=== PATIENT | male | born 1950 | race Caucasian/White ===

== ENCOUNTER 2020-05-18 09:38 | Outpatient (REF) | payer MEDICARE, SELFPAY ==
--- NOTE | ~2020-05-18 | XR_ITS ---
EXAMINATION: XR CHEST CLINICAL INFORMATION: Pleurodynia. COMPARISON: 09/20/2018 TECHNIQUE: Two views of the chest were obtained. FINDINGS: Markedly rotated angulated positioning. The cardiomediastinal size is stable allowing for difference in technique. Large hiatal hernia. There is right basilar opacity, which may be related to elevation of the right hemidiaphragm/technique. Alternately, this could represent right basilar opacification plus/minus right pleural effusion. Left lung is clear. No left-sided pleural effusion. No pulmonary edema or pneumothorax. XR/XR chest 2V IMPRESSION: Rotated angulated positioning limiting evaluation. Findings in the right lower lung, could be related to elevated hemidiaphragm secondary to positioning/technique. Alternately, this could represent bibasilar consolidation plus/minus effusion. Recommend repeat radiograph with better technique for further evaluation. Large hiatal hernia.
--- NOTE | ~2020-05-18 | XR_ITS ---
EXAMINATION: XR HIP, RIGHT CLINICAL INFORMATION: Hip pain. COMPARISON: 06/21/2011 TECHNIQUE: Two views of the right hip. FINDINGS: No acute fracture or dislocation. Alignment is normal. Joint spaces are maintained. Small ossicle adjacent to the superior acetabulum. Pelvic bones are intact. XR/XR hip RT min 2V IMPRESSION: No evidence of acute fracture.
== END 2020-05-18 09:39 | disposition home or self-care (01) ==
LOC: HO.XRAY 09:38
PROVIDERS: PCP Internal Medicine; Visit Provider Internal Medicine
DX: R07.81 Pleurodynia (principal)
CPT/HCPCS: 71046; 73502

== ENCOUNTER 2020-05-18 10:19 | Emergency (ER) | payer MEDICARE, MEDICAID, SELFPAY ==
[2020-05-18 10:37] LABS: Glucose, Whole Blood 127 mg/dL (60-115)
--- NOTE | 2020-05-18 10:47 | ED_ITS ---
HPI - General Adult General Chief complaint: General Medical Stated complaint: unsteady gait Time Seen by Provider: 05/18/20 10:45 Source: patient Mode of arrival: wheelchair Limitations: no limitations History of Present Illness HPI narrative: 62-year-old male who was brought to the emergency department from the radiology department for evaluation of lightheadedness, dizziness and diaphoresis. The patient states that 3 days prior he fell at home. He states that he got out of bed and walked into the kitchen and then fell. He does not believe that he lost consciousness. He denied any head injury. He states that he did hit his right chest and right hip on the floor. He complained of right- sided chest pain and hip pain and was sent to the Radiology Department by his PCP for x-rays. Apparently he became, confused, diaphoretic and complained of dizziness so sent to the emergency department for evaluation. The patient currently has no complaints. He states that he has been taking ibuprofen for his pain. He denied any abdominal pain or change in his bowel movements (dark tarry stools, bright red blood per her rectum or diarrhea). Related Data Allergies Allergy/AdvReac Type Severity Reaction Status Date / Time Penicillins [PENICILLINS] Allergy Unknown EYES GET Unverified 12/08/19 14:36 RED Review of Systems Review of Systems: Yes all other systems are reviewed and are negative Neurologic: Reports Abnormal speech present [facility] Past Medical History [facility] Narrative: Patient has a history of high cholesterol, myocardial infarction 20 years prior, asthma and anxiety. He lives alone, he denies tobacco use but was a former smoker, quit 25 years prior and smoked for 20 years, denies alcohol and drug use. Social History Social History Alcohol intake: unknown Smoking Status: Unknown if ever smoked Advance Directives: No Advance Directives Information Provided: No Physical Exam Vital Signs: Vital Signs: Last Vital Signs Pulse 65 05/18/20 12:00 Resp 18 05/18/20 12:00 Pulse Ox 93 05/18/20 12:00 Const: General: cooperative and other (Diaphoretic, stuttering speech per comprehensible) Nutritional Appearance: other (Resting tremor) Orientation/consciousness: oriented to person and oriented to place Limitations: no limitations HENMT: Head: Yes normal to inspection, Yes normocephalic and Yes atraumatic Ears: external ears normal General nose exam: Normal external nose present Face and sinus: Yes normal facial exam Mouth: Normal oral and palatal mucosa present Throat: Yes posterior oropharynx normal Eyes: Periorbital: periorbital findings normal Eyelids: Yes eyelids normal Conjunctivae: conjunctivae normal Sclerae: sclerae normal Corneas: corneas normal Pupils: Equal, round and reactive pupils present Direct Ophthalmoscopy: normal light reflex Neck: Neck: Yes full ROM, Yes no lymphadenopathy, Yes no meningeal signs, Yes trachea midline and Yes supple Chest: Chest palpation & inspection: normal inspection of the chest and normal palpation of entire chest wall Resp: Effort & Inspection: normal respiratory effort and able to speak in complete sentences Auscultation: clear to auscultation bilaterally Cardio: Rate: regular rate Rhythm: regular rhythm Heart sounds: S1 normal heart sound present, S2 normal heart sound present and no murmurs GI: Inspection: Yes normal to inspection Palpation (GI): Soft to palpation, nontender, no guarding, not rigid and No hepatosplenomegaly present Rectal Exam - Male: Yes Visual inspection abnormal (Incontinent of stool) and Yes heme positive stool : General: Yes no CVA tenderness Back/Spine/Pelvis: Back: no CVA tenderness Cervical Spine: normal cervical lordosis Thoracic/Lumbar Spine: thoracic and lumbar spine normal to inspection Skin: Lesions: no lesions Rashes: no rashes Wounds: no wounds Neuro: General: oriented to person, oriented to place, no meningeal signs and other (Diffuse resting tremor) Cranial nerves: Yes CN's II-XII intact bilaterally and Yes Equal, round and reactive pupils present Cognition (Neuro): normal cognition Speech: Abnormal speech present Motor exam (neuro): 5/5 motor strength present throughout Extrem: General: Yes normal to inspection and Yes full ROM Psych: Appearance: well kempt Mental Status: mental status grossly normal Speech and movement: Normal speech and movement present Affect: normal affect Attitude: cooperative Thought process: Normal thought process present Thought content: Normal thought content present Course Course Course Narrative: 70-year-old male who was sent to the emergency department for evaluation of confusion, diaphoresis shakiness and weakness. The patient had a fall 3 days prior with injury to his right chest and right hip and was at the Radiology Department to get x-rays. I did review these x-rays and I do not see any acute fractures. The patient's physical examination revealed a diaphoretic male who was cooperative and able to give a good history, his abdomen was nontender but is rectal exam revealed dark stool which was Hemoccult positive. The patient has been taking Motrin for his chest and right hip pain and he may have an upper GI bleed. I did order laboratory evaluation on the patient. The patient did not have any head trauma from his fall, therefore I do not think that the CT scan of the brain at this time. 1335: The patient is currently asymptomatic and states that he feels like he is at his baseline. Patient's laboratory evaluation revealed no anemia with an H&H of 16 in 49. Urinalysis was negative, COVID-19 was negative. I did look at the patient's outpatient chest x-ray and I do not see any acute fracture or pneumothorax. Patient's outpatient right hip x-ray revealed no acute fracture on my review of these films. I did discuss these with the patient I suspect that he has a contusion to his right chest wall secondary to his fall and most l ikely a contusion to his right hip. He did have Hemoccult-positive stool and I did discuss this with him. I told him to avoid ibuprofen and take Tylenol for pain. He is also advised to use ice for 10-15 minutes followed by heat for 10- 15 minutes. Patient will need to follow-up with his PCP to further evaluate his Hemoccult-positive stool. Medical Decision Making Lab Data Result diagrams: 05/18/20 10:50 05/18/20 10:50 Labs: Lab Results 05/18/20 05/18/20 05/18/20 Range/Units 10:34 10:50 10:50 WBC 9.3 (4.8-10.8) X10*3/uL RBC 5.54 (4.60-5.80) X10*6/uL Hgb 16.0 (14.0-18.0) g/dl Hct 49.3 (42-52) % MCV 89.0 (80-98) fL MCH 28.9 (27.0-33.0) pg MCHC 32.5 (31.0-36.0) g/dl RDW 13.3 (11.0-16.0) % Plt Count 181 (160-400) X10*3/uL MPV 9.3 L (9.4-12.4) fL Immature Gran % (Auto) 0.3 (0.0-0.4) % Neut % (Auto) 79.7 H (45-73) % Lymph % (Auto) 8.0 L (20-40) % [facility] % (Auto) 10.5 (2-11) % Eos % (Auto) 1.2 (0-4) % Baso % (Auto) 0.3 (0-2) % Lymph # (Auto) 0.7 L (1.2-4.9) X10*3/uL [facility] # (Auto) 1.0 (0.1-1.2) X10*3/uL Eos # (Auto) 0.1 (0.0-0.4) X10*3/uL Baso # (Auto) 0.0 (0.0-0.2) X10*3/uL Abs Immat Gran (auto) 0.03 (0.00-0.03) X10*3/uL Absolute Neuts (auto) 7.4 (2.0-8.3) X10*3/uL Absolute Nucleated RBC 0.000 (0.0-0.012) X10*3/uL Nucleated RBC % (auto) 0.0 (0.0-0.2) /100WBC Sodium 140 (135-145) mmol/L Potassium 4.5 (3.3-5.1) mmol/L Chloride 104 (96-108) mmol/L Carbon Dioxide 26 (22-29) mmol/L Anion Gap 15 (12-20) BUN 13 (9-16) mg/dL Creatinine 0.80 (0.5-1.4) mg/dL Estim Creat Clear Calc TNP Estimated GFR > 60 POC Glucose 127 H (60-115) mg/dL Random Glucose 119 H (60-115) mg/dL Calcium 8.7 (8.4-10.2) mg/dL Total Bilirubin 0.6 (0.0-1.0) mg/dL AST 19 (5-37) U/L ALT 18 (0-40) U/L Alkaline Phosphatase 104 (39-117) U/L Troponin I High Sens (<3.5-35.0) ng/L Total Protein 6.9 (6.5-8.0) g/dL Albumin 4.4 (3.5-5.0) g/dL Lipase 47 (8-78) U/L Urine Color Urine Appearance Urine pH (5.0-8.0) Ur Specific [place] (1.005-1.025) Urine Protein (NEG-TRACE) MG/DL Urine Glucose (UA) (NEG) MG/DL Urine Ketones (NEG) MG/DL Urine Blood (NEG) Urine Nitrite (NEG) Ur Leukocyte Esterase (NEG) Urine RBC (0) /HPF Urine WBC (0-4) /HPF Ur Squamous Epith Cells /LPF Urine Bacteria /LPF Stool Occult Blood (NEG) COVID-19 (TIFFANY) (Negative) COVID-19 Clin Com 05/18/20 05/18/20 05/18/20 Range/Units 10:50 10:50 10:51 WBC (4.8-10.8) X10*3/uL RBC (4.60-5.80) X10*6/uL Hgb (14.0-18.0) g/dl Hct (42-52) % MCV (80-98) fL MCH (27.0-33.0) pg MCHC (31.0-36.0) g/dl RDW (11.0-16.0) % Plt Count (160-400) X10*3/uL MPV (9.4-12.4) fL Immature Gran % (Auto) (0.0-0.4) % Neut % (Auto) (45-73) % Lymph % (Auto) (20-40) % [facility] % (Auto) (2-11) % Eos % (Auto) (0-4) % Baso % (Auto) (0-2) % Lymph # (Auto) (1.2-4.9) X10*3/uL [facility] # (Auto) (0.1-1.2) X10*3/uL Eos # (Auto) (0.0-0.4) X10*3/uL Baso # (Auto) (0.0-0.2) X10*3/uL Abs Immat Gran (auto) (0.00-0.03) X10*3/uL Absolute Neuts (auto) (2.0-8.3) X10*3/uL Absolute Nucleated RBC (0.0-0.012) X10*3/uL Nucleated RBC % (auto) (0.0-0.2) /100WBC Sodium (135-145) mmol/L Potassium (3.3-5.1) mmol/L Chloride (96-108) mmol/L Carbon Dioxide (22-29) mmol/L Anion Gap (12-20) BUN (9-16) mg/dL Creatinine (0.5-1.4) mg/dL Estim Creat Clear Calc Estimated GFR POC Glucose (60-115) mg/dL Random Glucose (60-115) mg/dL Calcium (8.4-10.2) mg/dL Total Bilirubin (0.0-1.0) mg/dL AST (5-37) U/L ALT (0-40) U/L Alkaline Phosphatase (39-117) U/L Troponin I High Sens < 3.5 (<3.5-35.0) ng/L Total Protein (6.5-8.0) g/dL Albumin (3.5-5.0) g/dL Lipase (8-78) U/L Urine Color Urine Appearance Urine pH (5.0-8.0) Ur Specific [place] (1.005-1.025) Urine Protein (NEG-TRACE) MG/DL Urine Glucose (UA) (NEG) MG/DL Urine Ketones (NEG) MG/DL Urine Blood (NEG) Urine Nitrite (NEG) Ur Leukocyte Esterase (NEG) Urine RBC (0) /HPF Urine WBC (0-4) /HPF Ur Squamous Epith Cells /LPF Urine Bacteria /LPF Stool Occult Blood POS (NEG) COVID-19 (TIFFANY) Negative (Negative) COVID-19 Clin Com See Note 05/18/20 Range/Units 12:20 WBC (4.8-10.8) X10*3/uL RBC (4.60-5.80) X10*6/uL Hgb (14.0-18.0) g/dl Hct (42-52) % MCV (80-98) fL MCH (27.0-33.0) pg MCHC (31.0-36.0) g/dl RDW (11.0-16.0) % Plt Count (160-400) X10*3/uL MPV (9.4-12.4) fL Immature Gran % (Auto) (0.0-0.4) % Neut % (Auto) (45-73) % Lymph % (Auto) (20-40) % [facility] % (Auto) (2-11) % Eos % (Auto) (0-4) % Baso % (Auto) (0-2) % Lymph # (Auto) (1.2-4.9) X10*3/uL [facility] # (Auto) (0.1-1.2) X10*3/uL Eos # (Auto) (0.0-0.4) X10*3/uL Baso # (Auto) (0.0-0.2) X10*3/uL Abs Immat Gran (auto) (0.00-0.03) X10*3/uL Absolute Neuts (auto) (2.0-8.3) X10*3/uL Absolute Nucleated RBC (0.0-0.012) X10*3/uL Nucleated RBC % (auto) (0.0-0.2) /100WBC Sodium (135-145) mmol/L Potassium (3.3-5.1) mmol/L Chloride (96-108) mmol/L Carbon Dioxide (22-29) mmol/L Anion Gap (12-20) BUN (9-16) mg/dL Creatinine (0.5-1.4) mg/dL Estim Creat Clear Calc Estimated GFR POC Glucose (60-115) mg/dL Random Glucose (60-115) mg/dL Calcium (8.4-10.2) mg/dL Total Bilirubin (0.0-1.0) mg/dL AST (5-37) U/L ALT (0-40) U/L Alkaline Phosphatase (39-117) U/L Troponin I High Sens (<3.5-35.0) ng/L Total Protein (6.5-8.0) g/dL Albumin (3.5-5.0) g/dL Lipase (8-78) U/L Urine Color YELLOW Urine Appearance CLEAR Urine pH 6.0 (5.0-8.0) Ur Specific [place] 1.010 (1.005-1.025) Urine Protein NEG (NEG-TRACE) MG/DL Urine Glucose (UA) NEG (NEG) MG/DL Urine Ketones NEG (NEG) MG/DL Urine Blood TRACE (NEG) Urine Nitrite NEG (NEG) Ur Leukocyte Esterase NEG (NEG) Urine RBC 0-2 (0) /HPF Urine WBC 0-2 (0-4) /HPF Ur Squamous Epith Cells TRACE /LPF Urine Bacteria NONE /LPF Stool Occult Blood (NEG) COVID-19 (TIFFANY) (Negative) COVID-19 Clin Com ECG Data Attestation: I personally reviewed and interpreted this ECG as follows: Interpretation: 1026: Sinus tachycardia with a rate of 104, first-degree AV block with a NC interval 210 milliseconds, normal QRS and QTC, Q-wave noted in V1, no ST segment elevation or depression, the EKG has a wandering baseline secondary to the patient's tremors, no evidence for cardiac ischemia or myocardial injury. No old EKG for comparison Discharge Plan Discharge Clinical Impression: Lower GI bleed Chest wall contusion Qualifiers: Encounter type: initial encounter Laterality: right Qualified Code(s): S20.211A - Contusion of right front wall of thorax, initial encounter Contusion of hip, right Qualifiers: Encounter type: initial encounter Qualified Code(s): S70.01XA - Contusion of right hip, initial encounter Fall Qualifiers: Encounter type: initial encounter Qualified Code(s): W19.XXXA - Unspecified fall, initial encounter Patient Disposition: Home, Self-Care Instructions: Gastrointestinal Bleeding (ED), Rib Contusion (ED) Additional Instructions: Your blood work was unremarkable, you are not anemic which is reassuring. On your rectal exam you have blood in your stool that you cannot see (occult blood) and you tested positive on the Hemoccult test. There are many causes for blood in the stool including internal hemorrhoids, polyps, and cancer. It is very important that you follow-up with your doctor to further evaluate this finding. Your chest x-ray revealed no obvious rib fracture and I suspect that you have a contusion to your chest. Your right hip x-ray revealed no obvious fracture and you most likely have a contusion to your hip. Take Tylenol (acetaminophen) 500 mg pills, 2 pills every 4 to 6 hours as needed for pain. Do not take NSAID (Motrin, Advil, ibuprofen, naproxen, Aleve) since this can cause increased GI bleeding. Follow-up with your doctor in 2 days. Please return to the emergency department if your symptoms get worse or if you develop any symptoms that are concerning to you.
[2020-05-18 10:57] LABS: MANUAL DIFF FLAG NO
[2020-05-18 10:59] LABS: Basophils Percent Auto 0.3 % (0-2); Eosinophils Absolute Auto 0.1 X10*3/uL (0.0-0.4); Eosinophils Percent Auto 1.2 % (0-4); Hematocrit 49.3 % (42-52); Imm Gran Abs Auto 0.03 X10*3/uL (0.00-0.03); Imm Gran Pct Auto 0.3 % (0.0-0.4); Lymphocytes Absolute Auto 0.7 X10*3/uL (1.2-4.9); Mean Corpuscular HGB Conc 32.5 g/dl (31.0-36.0); Mean Corpuscular Hemoglobin 28.9 pg (27.0-33.0); Mean Platelet Volume 9.3 fL (9.4-12.4); Monocytes Percent Auto 10.5 % (2-11); Neutrophils Absolute Auto 7.4 X10*3/uL (2.0-8.3); Neutrophils Percent Auto 79.7 % (45-73); Platelet Count 181 X10*3/uL (160-400); Red Blood Count 5.54 X10*6/uL (4.60-5.80); Red Cell Distribution Width 13.3 % (11.0-16.0); White Blood Count 9.3 X10*3/uL (4.8-10.8)
[2020-05-18 11:00] LABS: OBS Int Ctl Valid YES; OBS1 POS (NEG)
[2020-05-18 11:26] LABS: COVID-19 Test Negative (Negative); IDNOW Serial# 9DD0AD1C
[2020-05-18 11:30] LABS: Alanine Aminotransferase 18 U/L (0-40); Albumin Level 4.4 g/dL (3.5-5.0); Alkaline Phosphatase 104 U/L (39-117); Anion Gap 15 (12-20); Aspartate Amino Transferase 19 U/L (5-37); Bilirubin Total 0.6 mg/dL (0.0-1.0); Blood Urea Nitrogen 13 mg/dL (9-16); Calcium 8.7 mg/dL (8.4-10.2); Carbon Dioxide 26 mmol/L (22-29); Chloride 104 mmol/L (96-108); Estimated Glomerular Filt Rate > 60; Glucose Random 119 mg/dL (60-115); Lipase 47 U/L (8-78); Potassium 4.5 mmol/L (3.3-5.1); Sodium 140 mmol/L (135-145); Total Protein 6.9 g/dL (6.5-8.0)
[2020-05-18 11:36] LABS: Troponin-I High Sensitivity < 3.5 ng/L (<3.5-35.0)
[2020-05-18] MEDS: 0.9 % Sodium Chloride 1,000 ML 999 ML IV (11:49)
[2020-05-18 12:00] VITALS: PULSE 65; RESP 18; O2SAT 93
[2020-05-18 12:39] LABS: Glucose Urine UA NEG (NEG); Leukocyte Esterase Urine NEG (NEG); Nitrite Urine NEG (NEG); Urine Blood TRACE (NEG); Urine Ketones NEG (NEG); Urine Protein NEG (NEG-TRACE)
[2020-05-18 12:42] LABS: Appearance Urine CLEAR; Color Urine YELLOW
[2020-05-18 12:55] LABS: RBC Urine 0-2 /HPF (0); Squamous Epithelial Cell Urine TRACE /LPF; WBC Urine 0-2 /HPF (0-4)
--- NOTE | 2020-05-19 | ECG_ITS ---
Test Reason : SOB Blood Pressure : / mmHG Vent. Rate : 104 BPM Atrial Rate : 107 BPM P-R Int : 000 ms QRS Dur : 090 ms QT Int : 328 ms P-R-T Axes : 000 065 039 degrees QTc Int : 431 ms Artifact in tracing Normal sinus rhythm Normal EKG When compared with ECG of 20-SEP-2018 16:24, No significant changes seen Referred By: Hamlet Soto Electronically Signed By:CROW HUGHES
== END 2020-05-18 14:18 | disposition home or self-care (01) ==
PROVIDERS: Emergency Provider Emergency Medicine Emergency Medical Services; PCP Internal Medicine
DX: K92.2 Gastrointestinal hemorrhage, unspecified (principal); S70.01XA Contusion of right hip, initial encounter; S20.211A Contusion of right front wall of thorax, initial encounter; W01.0XXA Fall on same level from slipping, tripping and stumbling without subsequent striking against object, initial encounter; R42 Dizziness and giddiness; Z20.822 Contact with and (suspected) exposure to COVID-19; Y93.9 Activity, unspecified; Y92.010 Kitchen of single-family (private) house as the place of occurrence of the external cause; Y99.9 Unspecified external cause status
CPT/HCPCS: 36415; 71046; 73502; 80053; 81001; 82272; 82947; 83690; 84484; 85025; 87635; 93005; 96360; 99284

== ENCOUNTER → 2020-08-08 08:13 | Outpatient (REF) | payer MEDICARE, MEDICAID, SELFPAY ==
--- NOTE | ~2020-08-08 | NM_ITS ---
Lexiscan Myocardial perfusion study Indication: Abnormal echocardiogram, assess for coronary disease and ischemia Technique: The patient was brought in for a Lexiscan perfusion study on 08/08/2020 and was injected 0.4 mg of Lexiscan intravenously. Within a minute of this injection 30 mCi of sestamibi was given intravenously. Images were obtained using the SPECT gamma camera interlaced with the gating device. Images were obtained in supine position. Resting perfusion study was performed on 08/09/2020. Patient was administered 30 mCi of sestamibi intravenously at rest. Images were then obtained in supine position. Total DLP 95mGy-cm. Images were processed with the software and compared side to side in short axis, horizontal long axis and vertical long axis views. Findings: Raw acquisition was reviewed. Hepatic uptake noted near the inferior wall. The stress perfusion study showed no significant perfusion abnormality. Both uncorrected as well as CT attenuation corrected images were reviewed. The gated study shows normal LV systolic function with calculated LVEF of 69%. LV cavity is normal in size. The gated study shows normal wall thickening and contraction of segments. Resting study shows no significant perfusion abnormality. Gating at rest reveals normal wall motion with ejection fraction at 57%. The findings are consistent with no reversible or fixed perfusion abnormality. NM/NM filomena perf SPECT rest & str Impression: 1. Myocardial perfusion imaging study shows normal myocardial perfusion. No evidence of any ischemia or infarction. 2. Gated LVEF is 69% during stress and 57% during rest. 3. Transient ischemic dilatation not present. EKG component of the test reported separately.
--- NOTE | 2020-08-08 08:19 | CA_ITS ---
Acquisition Time: 2020-08-08 08:37:30 Total Exercise Time: 00:02:00 Test Indications: CAD Medications: Protocol: LEXISCAN Max HR: 117 BPM 76% of Pred: 152 BPM Max BP: 118/080 mmHG Max Work Load: 1.0 METS Pharmacological stress test using Lexiscan while sitting. Pt tolerated well, mild SOB after Lexiscan injection, no CP. EKG with occ. PVC's, non-diagnostic for ischemia. Nuclear images to follow. Normotensive reasponse to test. Test reviewed with Dr. Cain. Referred By: Rusty Lowe Overread By: Lizabeth Allen NP
== END ==
LOC: HO.CARD 08:13
PROVIDERS: Visit Provider Internal Medicine Cardiovascular Disease
DX: I25.10 Atherosclerotic heart disease of native coronary artery without angina pectoris (principal)
CPT/HCPCS: 78452; 93016; 93017; 93018; A9500; J0280; J2785

== ENCOUNTER 2020-10-11 13:18 | Outpatient (REF) | payer MEDICARE, MEDICAID, SELFPAY ==
[2020-10-11 15:51] LABS: MANUAL DIFF FLAG NO
[2020-10-11 15:59] LABS: Basophils Absolute Auto 0.1 X10*3/uL (0.0-0.2); Basophils Percent Auto 0.8 % (0-2); Eosinophils Absolute Auto 0.2 X10*3/uL (0.0-0.4); Hematocrit 47.6 % (42-52); Hemoglobin 15.4 g/dl (14.0-18.0); Imm Gran Abs Auto 0.04 X10*3/uL (0.00-0.03); Imm Gran Pct Auto 0.5 % (0.0-0.4); Lymphocytes Absolute Auto 1.1 X10*3/uL (1.2-4.9); Lymphocytes Percent Auto 14.5 % (20-40); Mean Corpuscular HGB Conc 32.4 g/dl (31.0-36.0); Mean Corpuscular Hemoglobin 28.7 pg (27.0-33.0); Mean Corpuscular Volume 88.6 fL (80-98); Mean Platelet Volume 9.4 fL (9.4-12.4); Monocytes Absolute Auto 0.9 X10*3/uL (0.1-1.2); Monocytes Percent Auto 10.9 % (2-11); Neutrophils Absolute Auto 5.6 X10*3/uL (2.0-8.3); Neutrophils Percent Auto 71.3 % (45-73); Platelet Count 204 X10*3/uL (160-400); Red Blood Count 5.37 X10*6/uL (4.60-5.80); Red Cell Distribution Width 13.2 % (11.0-16.0); White Blood Count 7.8 X10*3/uL (4.8-10.8)
[2020-10-11 16:13] LABS: C Reactive Protein 0.27 mg/dL (< or = 0.50); Iron 60 mcg/dL (45-160); Percent Iron Saturation 17 % (15-50); Total Iron Binding Capacity 347 mcg/dL (228-428); Unsaturated Iron Binding 287 ug/dL
[2020-10-11 16:40] LABS: Erythrocyte Sedimentation Rate 5 MM/HR (0-15)
[2020-10-12 08:20] LABS: ~Hepatitis C Antibody Nonreactive (Nonreactive)
== END 2020-10-11 13:19 | disposition home or self-care (01) ==
LOC: HO.LAB 13:18
PROVIDERS: PCP Internal Medicine; Referring Provider Internal Medicine; Visit Provider Physician Assistant
DX: R19.5 Other fecal abnormalities (principal); B19.20 Unspecified viral hepatitis C without hepatic coma; R19.7 Diarrhea, unspecified; K21.9 Gastro-esophageal reflux disease without esophagitis
CPT/HCPCS: 36415; 83540; 85025; 85652; 86140; 86803; 99202

== ENCOUNTER → 2020-11-15 13:29 | Outpatient (BNVA) | payer MEDICARE, MEDICAID, SELFPAY | PROVIDERS: PCP Internal Medicine; Visit Provider Physician Assistant | CPT/HCPCS: Q3014 ==

== ENCOUNTER 2020-11-22 13:44 | Outpatient (REF) | payer MEDICARE, MEDICAID, SELFPAY ==
--- NOTE | ~2020-11-22 | XR_ITS ---
EXAMINATION: XR CHEST CLINICAL INFORMATION: Hypoxemia. Repeated falls. COMPARISON: 05/18/2020 TECHNIQUE: 2 views of the chest were obtained. FINDINGS: There is no evidence of acute parenchymal disease, pneumothorax, or pleural effusion. Heart normal size. No evidence of pulmonary edema. There is a large hiatal hernia present. There is some scarring noted within the lingula. XR/XR chest 2V IMPRESSION: Large hiatal hernia. No acute parenchymal disease.
[2020-11-22 14:23] LABS: MANUAL DIFF FLAG NO
[2020-11-22 14:26] LABS: Basophils Percent Auto 0.1 % (0-2); Eosinophils Absolute Auto 0.2 X10*3/uL (0.0-0.4); Eosinophils Percent Auto 2.3 % (0-4); Hematocrit 45.3 % (42-52); Hemoglobin 14.7 g/dl (14.0-18.0); Imm Gran Abs Auto 0.02 X10*3/uL (0.00-0.03); Imm Gran Pct Auto 0.3 % (0.0-0.4); Lymphocytes Absolute Auto 1.1 X10*3/uL (1.2-4.9); Lymphocytes Percent Auto 15.5 % (20-40); Mean Corpuscular HGB Conc 32.5 g/dl (31.0-36.0); Mean Corpuscular Hemoglobin 28.6 pg (27.0-33.0); Mean Corpuscular Volume 88.1 fL (80-98); Mean Platelet Volume 9.2 fL (9.4-12.4); Monocytes Absolute Auto 0.7 X10*3/uL (0.1-1.2); Monocytes Percent Auto 10.6 % (2-11); Neutrophils Absolute Auto 4.9 X10*3/uL (2.0-8.3); Neutrophils Percent Auto 71.2 % (45-73); Platelet Count 179 X10*3/uL (160-400); Red Blood Count 5.14 X10*6/uL (4.60-5.80); Red Cell Distribution Width 13.3 % (11.0-16.0)
[2020-11-22 14:38] LABS: Estimated Average Glucose 123 mg/dL; Hemoglobin A1C 148.5958 umol/L; Hemoglobin A1c % 5.9 %
[2020-11-22 14:50] LABS: Alanine Aminotransferase 11 U/L (0-40); Alkaline Phosphatase 114 U/L (39-117); Anion Gap 11 (12-20); Aspartate Amino Transferase 13 U/L (5-37); Bilirubin Direct 0.4 mg/dL (0.0-0.5); Bilirubin Total 0.9 mg/dL (0.0-1.0); Blood Urea Nitrogen 9 mg/dL (9-16); Carbon Dioxide 28 mmol/L (22-29); Chloride 102 mmol/L (96-108); Cholesterol 103 mg/dL; Estimated Glomerular Filt Rate > 60; Glucose Random 138 mg/dL (60-115); HDL Cholesterol 32 mg/dL; LDL Cholesterol Calculated 55 mg/dl; Sodium 137 mmol/L (135-145); Total Protein 6.4 g/dL (6.5-8.0); Triglycerides 83 mg/dL
[2020-11-22 14:53] LABS: B Type Natriuretic Peptide 16 pg/mL (<100)
[2020-11-22 15:07] LABS: D Dimer < 200 NG/ML
[2020-11-22 15:11] LABS: TSH reflex Free T4 1.83 uIU/mL (0.32-4.0)
[2020-11-22 16:01] LABS: Vitamin B12 282 pg/mL (200-900)
== END 2020-11-22 13:45 | disposition home or self-care (01) ==
LOC: HO.XRAY 13:44
PROVIDERS: Absent Provider Internal Medicine; PCP Internal Medicine; Visit Provider Emergency Medicine
DX: R09.02 Hypoxemia (principal); R29.6 Repeated falls
CPT/HCPCS: 36415; 71046; 80048; 80061; 80076; 82607; 83036; 83880; 84443; 85025; 85379

== ENCOUNTER 2020-12-20 14:23 | Inpatient (IN) | payer MEDICARE, MEDICAID, SELFPAY ==
[2020-12-20] VITALS (8 sets, daily range): BP systolic 129–156; BP diastolic 73–92; PULSE 103–128; RESP 18–24; TEMP 36.6–36.9; O2SAT 90–97; BMI 29.7; BMI 33.1
--- NOTE | ~2020-12-20 | XR_ITS ---
EXAMINATION: XR CHEST CLINICAL INFORMATION: Shortness of breath. COMPARISON: Multiple priors. Most recent chest radiograph dated from 12/20/2020. TECHNIQUE: AP upright portable view of the chest was obtained. FINDINGS: Unchanged appearance of the cardiomediastinal silhouette with redemonstration of a large hiatal hernia. Streaky and ill-defined airspace opacities in the left lower lobe and retrocardiac region adjacent to the hiatal hernia are not significantly changed. No new focal airspace opacities. No pleural effusions or pneumothorax. No acute osseous abnormalities. XR/XR chest 1V IMPRESSION: Unchanged examination without evidence of new focal airspace disease.
--- NOTE | ~2020-12-20 | XR_ITS ---
EXAMINATION: XR CHEST CLINICAL INFORMATION: Fall. Chest pain. Rule out fracture. COMPARISON: Previous chest x-ray most recent 11/22/[address] December 1999 and TECHNIQUE: Frontal view of the chest was obtained. FINDINGS: The cardiac and mediastinal contours are stable. There is increased density over the heart corresponding to esophageal hernia or intrathoracic stomach. The lungs are clear. There is no pleural effusion or pneumothorax. No fracture is seen.. XR/XR chest 1V IMPRESSION: No evidence for acute disease in the chest.
--- NOTE | ~2020-12-20 | CT_ITS ---
EXAMINATION: CT HEAD WITHOUT CONTRAST CLINICAL INFORMATION: Fall. Headache. COMPARISON: Previous head CT most recent September 2018 TECHNIQUE: Contiguous axial imaging was performed from the skull base to vertex without intravenous administration of contrast. This CT examination was performed using dose optimization techniques as appropriate, variously including the following: *Automated exposure control *Adjustment of mA and/or kV according to patient size (this includes techniques or standardized protocols for targeted exams where dose is matched to indication/reason for exam; i.e. extremities or head) *Use of iterative reconstruction technique DLP: 611 mGy-cm FINDINGS: There is no evidence of an extra-axial collection. There is no evidence of intra-axial or extra-axial hemorrhage. The ventricles and extra-axial CSF spaces are slightly prominent suggestive of mild generalized atrophy. Mayers-white matter differentiation is normal. No mass, or infarct is seen. Review of bone windows is normal. No skull fracture is seen. Paranasal sinuses and middle ears are clear. CT/CT head/brain wo con IMPRESSION: No acute findings.
--- NOTE | ~2020-12-20 | CT_ITS ---
EXAMINATION: CT CERVICAL SPINE WITHOUT CONTRAST CLINICAL INFORMATION: Fall. Neck pain. COMPARISON: Previous CT of the cervical spine December 2017 TECHNIQUE: Axial images through the cervical spine without contrast. Sagittal and coronal reconstructions on the technologist workstation were performed. This CT examination was performed using dose optimization techniques as appropriate, variously including the following: *Automated exposure control *Adjustment of mA and/or kV according to patient size (this includes techniques or standardized protocols for targeted exams where dose is matched to indication/reason for exam; i.e. extremities or head) *Use of iterative reconstruction technique DLP: 611 mGy-cm FINDINGS: The head is tilted to the left. Bone alignment is otherwise normal. There is degenerative spondylosis from C2-C3 to C5-C6. There is degenerative disc disease at C3-C4 to C5-C6. There is facet arthritis, left side greater than right. Prevertebral soft tissues are normal. The lung apices are clear. CT/CT cervical spine wo con IMPRESSION: Degenerative changes. No fracture or dislocation seen.
--- NOTE | 2020-12-20 14:27 | ED.GENADULT ---
HPI - General Adult General Chief complaint: Fall Stated complaint: FOUND ON BR FLOOR, DOWN ABOUT 16 HOURS Time Seen by Provider: 12/20/20 14:25 Source: patient and EMS Mode of arrival: EMS Limitations: no limitations History of Present Illness HPI narrative: 70-year-old male who presents emergency department for evaluation of a fall and prolonged down time lying on the bathroom floor. The patient states that he fell but is vague about the details of his fall. According to the paramedics the patient was found in the bathroom tract between the bathtub and a wall. The patient was last seen last night at around 4:30 p.m. and he is not certain how long he was lying on the floor of the bathroom. Patient is currently complaining of headache, neck pain, right-sided chest pain, in severe thirst since he has not been able to eat or drink for at least 16-24 hours. The patient states that he was not ill prior to the fall, he denied fever, chills, chest pain, shortness of breath, nausea, vomiting, diarrhea or changes bowel movements. The patient was seen in the emergency department by me on 05/18/2020 for evaluations head injury from the fall that occurred 3 days prior to the ED evaluation. His workup in the emergency department at bedtime did reveal Hemoccult-positive stool but he had a normal H&H and no other acute findings. The patient has a resting tremor of his upper extremities Related Data Home Medications Medication Instructions Recorded Confirmed atorvastatin 20 mg tablet 20 mg PO DAILY 10/11/20 12/20/20 carvedilol 6.25 mg tablet 6.25 mg PO BID 10/11/20 12/20/20 diltiazem HCl 360 mg capsule,24 360 mg PO DAILY 10/11/20 12/20/20 hr,extended release lorazepam 0.5 mg tablet 0.5 mg PO BID PRN 10/11/20 12/20/20 melatonin 10 mg capsule 10 mg PO BEDTIME 10/11/20 12/20/20 olanzapine 20 mg tablet 20 mg PO BEDTIME 10/11/20 12/20/20 omeprazole 20 mg capsule,delayed 20 mg PO DAILY 10/11/20 12/20/20 release tamsulosin 0.4 mg capsule 0.4 mg PO DAILY 10/11/20 12/20/20 albuterol sulfate 90 mcg/actuation 2 puff INHALATION Q6H PRN 12/20/20 12/20/20 aerosol inhaler cetirizine 10 mg tablet 10 mg PO BEDTIME 12/20/20 12/20/20 clobetasol 0.05 % topical ointment 1 appl TOPICAL BID 12/20/20 12/20/20 fluticasone 500 mcg-salmeterol 50 1 puff INHALATION BID 12/20/20 12/20/20 mcg/dose blistr powdr for inhalation (Advair Diskus) fluticasone propionate 50 2 spray INTRANASAL DAILY 12/20/20 12/20/20 mcg/actuation nasal spray,suspension ketoconazole 2 % shampoo 1 appl TOPICAL DAILY 12/20/20 12/20/20 prednisolone acetate 1 % eye 1 drp OPHTHALMIC (EYE) BID 12/20/20 12/20/20 drops,suspension Allergies Allergy/AdvReac Type Severity Reaction Status Date / Time Penicillins [PENICILLINS] Allergy Unknown EYES GET Verified 11/15/20 13:29 RED Review of Systems Review of Systems: Yes all other systems are reviewed and are negative PENDING SALE TO [facility] Past Medical History PENDING SALE TO [facility] Narrative: Past medical history: ?high cholesterol, myocardial infarction 20 years prior, asthma and anxiety, acid reflux. The patient lives alone. He denies tobacco use. He is a former smoker but quit 25 years ago. He denies alcohol or drug use. Medical History Coronary artery disease Heme + stool HTN (hypertension) Mild intermittent asthma Schizoaffective disorder Tremor Family History Family History Unknown No problems noted. Mother Colon cancer Social History Social History Household Members Other:: lives alone-has patient advocate Alcohol intake: never Patient Tobacco Use Status: Never used Tobacco Use of substances other than those prescribed or required for medical reasons: No Advance Directives: No Advance Directives Information Provided: No Current occupational status: disabled Physical Exam Vital Signs: Vital Signs: Last Vital Signs Temp 98.4 F 12/20/20 17:04 Pulse 125 H 12/20/20 17:04 Resp 20 12/20/20 17:04 BP 156/89 H 12/20/20 17:04 Pulse Ox 97 12/20/20 17:04 Body Mass Index 29.7 Const: Other: Awake, alert, male, does not appear to be in distress, no obvious head injury, he is in a rigid cervical collar applied by the paramedics. Orientation/consciousness: oriented to person and oriented to place HENMT: Head: Yes normal to inspection, Yes normocephalic and Yes atraumatic Ears: external ears normal General nose exam: Normal external nose present Face and sinus: Yes normal facial exam Mouth: other (Very dry mucous membranes) Throat: Yes posterior oropharynx normal Eyes: General: appearance normal, both eyes and all related structures Pupils: Equal, round and reactive pupils present Neck: Neck: Yes normal visual inspection, Yes no lymphadenopathy, Yes trachea midline and Yes supple Chest: Chest palpation & inspection: normal inspection of the chest and normal palpation of entire chest wall Resp: Effort & Inspection: normal respiratory effort and able to speak in complete sentences Auscultation: clear to auscultation bilaterally Cardio: Rate: regular rate Rhythm: regular rhythm Heart sounds: S1 normal heart sound present, S2 normal heart sound present and no murmurs GI: Inspection: Yes normal to inspection Palpation (GI): Soft to palpation, nontender and no guarding Auscultation: normal bowel sounds : General: Yes no CVA tenderness Back/Spine/Pelvis: Back: no CVA tenderness Skin: Other: Multiple areas of ecchymosis on the patient's arms back, chest and legs Neuro: General: oriented to person and oriented to place Cranial nerves: Yes CN's II-XII intact bilaterally and Yes Equal, round and reactive pupils present Cognition (Neuro): normal cognition Motor exam (neuro): 5/5 motor strength present throughout Extrem: Other: Patient has a resting tremor of his upper extremities which is chronic Psych: Appearance: grossly normal Speech and movement: Normal speech and movement present Affect: normal affect Attitude: cooperative Thought process: Normal thought process present Thought content: Normal thought content present Course Course Course Narrative: 70-year-old male who presents emergency department for evaluation of a fall in his bathroom, paramedics described that the patient was pinned between the bathtub and the wall and that the patient was lying on the floor for 16-24 hours. The patient believes that he fell and just was not able to get up and he denied any prodromal symptoms. Vital signs revealed a normal BP, tachycardia with heart rate of 122, O2 saturation was low at 91% on room air. Examination revealed no significant head injury but he did have tenderness palpation of the cervical spine. Patient's mucous membranes are very dry consistent with him not having access to water for significant period of time. The patient has bruising over his chest back arms and legs consistent with lying on the floor for a long period of time. I did order a CT scan scan head, neck and chest x-ray. Laboratory evaluation was ordered as well including CBC, CMP, lipase, lactic acid, troponin, CK, urinalysis, blood cultures. Patient was ordered to get a 30 cc/kilogram bolus of normal saline. 1635: The patient's laboratory [place] [address]. Patient has a low sodium of 129 and a low bicarb of 21. Patient's AST was elevated at 105. Bilirubin is elevated 1.6. The patient's high sensitivity troponin I is detectable at 9.1 but not elevated. Lactic acid was normal 1.8. CK is elevated at 6674 which is consistent with rhabdomyolysis secondary to the patient lying on the floor for a prolonged period of time. Urinalysis did reveal 2+ blood, microscopic revealed only 1-4 RBCs suggesting that the 2+ blood is consistent with myoglobin he media. CT scan of the patient's head and neck revealed no acute findings. Given the patient's rhabdomyolysis, will discuss the patient's the patient's presentation with the covering hospitalist. 1702: Chest x-ray reviewed by me and I do not see any acute pneumonia. I did discuss the patient's presentation with the covering hospitalist, Dr. Vanegas and the patient will be admitted for further treatment. Medical Decision Making Lab Data Result diagrams: 12/20/20 15:12/20/20 15:09 Labs: Lab Results 12/20/20 12/20/20 12/20/20 Range/Units 15: 15:09 15:09 WBC 11.8 H (4.8-10.8) X10*3/uL RBC 5.15 (4.60-5.80) X10*6/uL Hgb 14.6 (14.0-18.0) g/dl Hct 42.6 (42-52) % MCV 82.7 (80-98) fL MCH 28.3 (27.0-33.0) pg MCHC 34.3 (31.0-36.0) g/dl RDW 12.8 (11.0-16.0) % Plt Count 163 (160-400) X10*3/uL MPV 8.9 L (9.4-12.4) fL Immature Gran % (Auto) 0.3 (0.0-0.4) % Neut % (Auto) 87.1 H (45-73) % Lymph % (Auto) 3.3 L (20-40) % [place] % (Auto) 9.1 (2-11) % Eos % (Auto) 0.0 (0-4) % Baso % (Auto) 0.2 (0-2) % Lymph # (Auto) 0.4 L (1.2-4.9) X10*3/uL [place] # (Auto) 1.1 (0.1-1.2) X10*3/uL Eos # (Auto) 0.0 (0.0-0.4) X10*3/uL Baso # (Auto) 0.0 (0.0-0.2) X10*3/uL Abs Immat Gran (auto) 0.03 (0.00-0.03) X10*3/uL Absolute Neuts (auto) 10.3 H (2.0-8.3) X10*3/uL Absolute Nucleated RBC 0.000 (0.0-0.012) X10*3/uL Nucleated RBC % (auto) 0.0 (0.0-0.2) /100WBC Sodium 129 L (135-145) mmol/L Potassium 4.2 (3.3-5.1) mmol/L Chloride 96 (96-108) mmol/L Carbon Dioxide 21 L (22-29) mmol/L Anion Gap 16 (12-20) BUN 10 (9-16) mg/dL Creatinine 0.78 (0.5-1.4) mg/dL Estim Creat Clear Calc 95.0 Estimated GFR > 60 Random Glucose 99 (60-115) mg/dL Lactic Acid 1.8 (0.5-2.0) mmol/L Calcium 8.5 (8.4-10.2) mg/dL Total Bilirubin 1.6 H (0.0-1.0) mg/dL AST 105 H (5-37) U/L ALT 28 (0-40) U/L Alkaline Phosphatase 109 (39-117) U/L Total Creatine Kinase 6674 H (38-174) U/L Troponin I High Sens (<3.5-35.0) ng/L Total Protein 5.9 L (6.5-8.0) g/dL Albumin 3.7 (3.5-5.0) g/dL Lipase 19 (8-78) U/L Urine Color Urine Appearance Urine pH (5.0-8.0) Ur Specific [place] (1.005-1.025) Urine Protein (NEG-TRACE) MG/DL Urine Glucose (UA) (NEG) MG/DL Urine Ketones (NEG) MG/DL Urine Blood (NEG) Urine Nitrite (NEG) Ur Leukocyte Esterase (NEG) Urine RBC (0) /HPF Urine WBC (0-4) /HPF Ur Squamous Epith Cells /LPF Urine Bacteria /LPF 12/20/20 12/20/20 Range/Units 15:09 15:33 WBC (4.8-10.8) X10*3/uL RBC (4.60-5.80) X10*6/uL Hgb (14.0-18.0) g/dl Hct (42-52) % MCV (80-98) fL MCH (27.0-33.0) pg MCHC (31.0-36.0) g/dl RDW (11.0-16.0) % Plt Count (160-400) X10*3/uL MPV (9.4-12.4) fL Immature Gran % (Auto) (0.0-0.4) % Neut % (Auto) (45-73) % Lymph % (Auto) (20-40) % [place] % (Auto) (2-11) % Eos % (Auto) (0-4) % Baso % (Auto) (0-2) % Lymph # (Auto) (1.2-4.9) X10*3/uL [place] # (Auto) (0.1-1.2) X10*3/uL Eos # (Auto) (0.0-0.4) X10*3/uL Baso # (Auto) (0.0-0.2) X10*3/uL Abs Immat Gran (auto) (0.00-0.03) X10*3/uL Absolute Neuts (auto) (2.0-8.3) X10*3/uL Absolute Nucleated RBC (0.0-0.012) X10*3/uL Nucleated RBC % (auto) (0.0-0.2) /100WBC Sodium (135-145) mmol/L Potassium (3.3-5.1) mmol/L Chloride (96-108) mmol/L Carbon Dioxide (22-29) mmol/L Anion Gap (12-20) BUN (9-16) mg/dL Creatinine (0.5-1.4) mg/dL Estim Creat Clear Calc Estimated GFR Random Glucose (60-115) mg/dL Lactic Acid (0.5-2.0) mmol/L Calcium (8.4-10.2) mg/dL Total Bilirubin (0.0-1.0) mg/dL AST (5-37) U/L ALT (0-40) U/L Alkaline Phosphatase (39-117) U/L Total Creatine Kinase (38-174) U/L Troponin I High Sens 9.9 (<3.5-35.0) ng/L Total Protein (6.5-8.0) g/dL Albumin (3.5-5.0) g/dL Lipase (8-78) U/L Urine Color YELLOW Urine Appearance CLEAR Urine pH 6.0 (5.0-8.0) Ur Specific [place] <= 1.005 (1.005-1.025) Urine Protein NEG (NEG-TRACE) MG/DL Urine Glucose (UA) NEG (NEG) MG/DL Urine Ketones 40 (NEG) MG/DL Urine Blood 2+ H (NEG) Urine Nitrite NEG (NEG) Ur Leukocyte Esterase NEG (NEG) Urine RBC 1-4 (0) /HPF Urine WBC 0-2 (0-4) /HPF Ur Squamous Epith Cells TRACE /LPF Urine Bacteria TRACE /LPF ECG Data Interpretation: 1639: Sinus tachycardia with a rate of 107, normal OH interval, QRS duration and QTC interval, no ST segment elevation, no ST segment depression, no PACs, no PVCs, no T wave abnormalities. Except for the sinus tachycardia this is a normal EKG. Discharge Plan Discharge Clinical Impression: Acute renal failure due to traumatic rhabdomyolysis, Contusion of multiple sites Fall Qualifiers: Encounter type: initial encounter Qualified Code(s): W19.XXXA - Unspecified fall, initial encounter Patient Disposition: Admitted As Inpatient
--- NOTE | 2020-12-20 14:47 | ECG_ITS ---
Test Reason : FALL Blood Pressure : / mmHG Vent. Rate : 107 BPM Atrial Rate : 107 BPM P-R Int : 180 ms QRS Dur : 094 ms QT Int : 350 ms P-R-T Axes : 078 061 051 degrees QTc Int : 467 ms Sinus tachycardia Otherwise normal ECG When compared with ECG of 18-MAY-2020 10:26, No significant change was found Referred By: Hamlet Soto Electronically Signed By:ROSETTA MARVIN
[2020-12-20] MEDS: 0.9 % Sodium Chloride 2,585.49 ML 2585.49 ML IVCONT (15:00)
--- NOTE | 2020-12-20 15:00 | PC.NURSE ---
patient was found in the bathroom between the bathtub and a wall. Per ems pt was last seen last night at around 4:30 p.m. Pt is unsure of how long he was lying on the bathroom floor and does not recall falling or the cause of is fall. He c/o headache, neck pain, right-sided chest pain. he denies fever, chills, chest pain, sob, nausea, vomiting or diarrhea. Pt is alert and oriented to self. Pt's HR high 120s. NS on the monitor.
[2020-12-20 15:18] LABS: MANUAL DIFF FLAG NO
[2020-12-20 15:21] LABS: Basophils Percent Auto 0.2 % (0-2); Hematocrit 42.6 % (42-52); Hemoglobin 14.6 g/dl (14.0-18.0); Imm Gran Abs Auto 0.03 X10*3/uL (0.00-0.03); Imm Gran Pct Auto 0.3 % (0.0-0.4); Lymphocytes Absolute Auto 0.4 X10*3/uL (1.2-4.9); Lymphocytes Percent Auto 3.3 % (20-40); Mean Corpuscular HGB Conc 34.3 g/dl (31.0-36.0); Mean Corpuscular Hemoglobin 28.3 pg (27.0-33.0); Mean Corpuscular Volume 82.7 fL (80-98); Mean Platelet Volume 8.9 fL (9.4-12.4); Monocytes Absolute Auto 1.1 X10*3/uL (0.1-1.2); Monocytes Percent Auto 9.1 % (2-11); Neutrophils Absolute Auto 10.3 X10*3/uL (2.0-8.3); Neutrophils Percent Auto 87.1 % (45-73); Platelet Count 163 X10*3/uL (160-400); Red Blood Count 5.15 X10*6/uL (4.60-5.80); Red Cell Distribution Width 12.8 % (11.0-16.0); White Blood Count 11.8 X10*3/uL (4.8-10.8)
[2020-12-20 15:37] LABS: Lactic Acid 1.8 mmol/L (0.5-2.0)
[2020-12-20 15:39] LABS: Alanine Aminotransferase 28 U/L (0-40); Albumin Level 3.7 g/dL (3.5-5.0); Alkaline Phosphatase 109 U/L (39-117); Anion Gap 16 (12-20); Aspartate Amino Transferase 105 U/L (5-37); Bilirubin Total 1.6 mg/dL (0.0-1.0); Blood Urea Nitrogen 10 mg/dL (9-16); Calcium 8.5 mg/dL (8.4-10.2); Carbon Dioxide 21 mmol/L (22-29); Chloride 96 mmol/L (96-108); Estimated Glomerular Filt Rate > 60; Glucose Random 99 mg/dL (60-115); Lipase 19 U/L (8-78); Potassium 4.2 mmol/L (3.3-5.1); Sodium 129 mmol/L (135-145); Total Protein 5.9 g/dL (6.5-8.0)
[2020-12-20 15:40] LABS: Troponin-I High Sensitivity 9.9 ng/L (<3.5-35.0)
[2020-12-20 15:47] LABS: Appearance Urine CLEAR; Color Urine YELLOW; Glucose Urine UA NEG (NEG); Leukocyte Esterase Urine NEG (NEG); Nitrite Urine NEG (NEG); Specific Gravity - Urine <= 1.005 (1.005-1.025); UACC Culture Trigger NO; Urine Blood 2+ (NEG); Urine Ketones 40 MG/DL (NEG); Urine Protein NEG (NEG-TRACE)
[2020-12-20 16:01] LABS: Bacteria Urine TRACE /LPF; Squamous Epithelial Cell Urine TRACE /LPF; WBC Urine 0-2 /HPF (0-4)
--- NOTE | 2020-12-20 17:06 | PM.IMHP ---
History of Present Illness Date of Service: 12/20/20 Chief Complaint: Found on the floor 70-year-old male was brought in by EMS after being found on the floor. Patient is a vague historian. Reports that he was trying to urinate and fell down. He denies loss of consciousness. He states he was down for about 14 hours. Paramedics found the patient in the bathroom tract between the bathtub and the wall. He he had last been seen at 16:30 evening prior to presentation. Patient denies any chest pain, shortness of breath, Chills, fever. In ED patient noted to have a CPK of 6674. Renal function okay. Given IV fluids. Review of Systems Review of Systems: Constitutional: Denies fever, denies Chills Eyes: denies blurry vision ENT: denies sore throat CVS: denies chest pain Respiratory: Denies dyspnea GI: no abdominal pain : denies dysuria MSK: denies neck pain Skin: denies rash Neuro: Chronic tremor Psych: denies suicidal ideation Endocrine: denies heat/cold intolerance Hematologic: denies easy bleeding Allergy: denies hives [facility] Medical History Coronary artery disease Heme + stool HTN (hypertension) Mild intermittent asthma Schizoaffective disorder Tremor Family History Unknown No problems noted. Mother Colon cancer Pertinent family history: see above Social History Household Members Other:: lives alone-has patient advocate Alcohol intake: never Patient Tobacco Use Status: Never used Tobacco Use of substances other than those prescribed or required for medical reasons: No Advance Directives: No Advance Directives Information Provided: No Current occupational status: disabled Meds Allergies Allergy/AdvReac Type Severity Reaction Status Date / Time Penicillins [PENICILLINS] Allergy Unknown EYES GET Verified 11/15/20 13:29 RED Active Medications: Current Medications Atorvastatin Calcium (Atorvastatin Calcium 20 Mg Tablet) 20 mg PO DAILY YAJAIRA Carvedilol (Carvedilol 6.25 Mg Tablet) 6.25 mg PO BID YAJAIRA; Protocol Diltiazem HCl (Diltiazem Hcl Cd 180 Mg Cap.Er.24h) 360 mg PO DAILY YAJAIRA; Protocol Lactated Ringer's (Lr) 1,000 mls @ 150 mls/hr IVCONT .Q6H40M [facility] Lorazepam (Lorazepam 0.5 Mg Tablet) 0.5 mg PO BID PRN PRN Reason: Anxiety Non-Formulary Medication (Fluticasone Propion-Salmeterol [Advair Diskus]) 1 puff INHALE BID [facility] Olanzapine (Olanzapine 10 Mg Tablet) 20 mg PO BEDTIME [facility] Pharmacy Consult (Consult Rx Perform Med Rec) 1 each MISCELLANE ONCE PRN PRN Reason: Consult order Tamsulosin HCl (Tamsulosin Hcl 0.4 Mg Capsule) 0.4 mg PO DAILY [facility] Home Medications Medication Instructions Recorded Confirmed Last Taken Type atorvastatin 20 mg tablet 20 mg PO DAILY 10/11/20 12/20/20 Unknown History betamethasone dipropionate 0.05 % TOPICAL 10/11/20 Unknown History topical ointment carvedilol 6.25 mg tablet 6.25 mg PO BID 10/11/20 12/20/20 Unknown History diltiazem HCl 360 mg capsule,24 360 mg PO DAILY 10/11/20 12/20/20 Unknown History hr,extended release epinephrine 0.3 mg/0.3 mL IM 10/11/20 Unknown History injection, auto-injector lorazepam 0.5 mg tablet 0.5 mg PO BID PRN 10/11/20 12/20/20 Unknown History melatonin 10 mg capsule 10 mg PO BEDTIME PRN 10/11/20 Unknown History olanzapine 20 mg tablet 20 mg PO BEDTIME 10/11/20 12/20/20 Unknown History olanzapine 20 mg tablet (Zyprexa) 20 mg PO DAILY 10/11/20 Unknown History omeprazole 20 mg capsule,delayed 20 mg PO DAILY 10/11/20 Unknown History release tamsulosin 0.4 mg capsule 0.4 mg PO DAILY 10/11/20 12/20/20 Unknown History fluticasone 500 mcg-salmeterol 50 1 puff INHALATION BID 12/20/20 12/20/20 Unknown History mcg/dose blistr powdr for inhalation (Advair Diskus) prednisolone acetate 1 % eye drp 12/20/20 12/20/20 Unknown History drops,suspension Physical Exam Vital Signs and Narrative: Vital Signs: Last Vital Signs Temp 98.0 F 12/20/20 16:00 Pulse 122 H 12/20/20 16:00 Resp 24 H 12/20/20 16:00 BP 147/77 H 12/20/20 16:00 Pulse Ox 93 12/20/20 16:00 Body Mass Index 29.7 General: no acute distress HEENT: atraumatic Neck: normal to visual inspection CVS: S1, S2, RRR Resp: CTA bilateral Chest: non tender GI: soft, non tender, non distended : no CVA tenderness Skin: no rashes Extremities: no edema Neuro: Oriented X3, grossly intact, Resting tremor Psych: cooperative Results Labs CBC and Chem 7: 12/20/20 15:09 12/20/20 15:09 Labs: Laboratory Results - last 24 hr 12/20/20 12/20/20 12/20/20 15:09 15:09 15:09 MCV 82.7 MCH 28.3 MCHC 34.3 RDW 12.8 Plt Count 163 MPV 8.9 L Immature Gran % (Auto) 0.3 Neut % (Auto) 87.1 H Lymph % (Auto) 3.3 L [place] % (Auto) 9.1 Eos % (Auto) 0.0 Baso % (Auto) 0.2 Lymph # (Auto) 0.4 L [place] # (Auto) 1.1 Eos # (Auto) 0.0 Baso # (Auto) 0.0 Abs Immat Gran (auto) 0.03 Absolute Neuts (auto) 10.3 H Absolute Nucleated RBC 0.000 Nucleated RBC % (auto) 0.0 Anion Gap 16 Estim Creat Clear Calc 95.0 Estimated GFR > 60 Random Glucose 99 Lactic Acid 1.8 Calcium 8.5 Total Bilirubin 1.6 H AST 105 H ALT 28 Alkaline Phosphatase 109 Total Creatine Kinase 6674 H Troponin I High Sens Total Protein 5.9 L Albumin 3.7 Lipase 19 Urine Color Urine Appearance Urine pH Ur Specific [place] Urine Protein Urine Glucose (UA) Urine Ketones Urine Blood Urine Nitrite Ur Leukocyte Esterase Urine RBC Urine WBC Ur Squamous Epith Cells Urine Bacteria 12/20/20 12/20/20 15:09 15:33 MCV MCH MCHC RDW Plt Count MPV Immature Gran % (Auto) Neut % (Auto) Lymph % (Auto) [place] % (Auto) Eos % (Auto) Baso % (Auto) Lymph # (Auto) [place] # (Auto) Eos # (Auto) Baso # (Auto) Abs Immat Gran (auto) Absolute Neuts (auto) Absolute Nucleated RBC Nucleated RBC % (auto) Anion Gap Estim Creat Clear Calc Estimated GFR Random Glucose Lactic Acid Calcium Total Bilirubin AST ALT Alkaline Phosphatase Total Creatine Kinase Troponin I High Sens 9.9 Total Protein Albumin Lipase Urine Color YELLOW Urine Appearance CLEAR Urine pH 6.0 Ur Specific [place] <= 1.005 Urine Protein NEG Urine Glucose (UA) NEG Urine Ketones 40 Urine Blood 2+ H Urine Nitrite NEG Ur Leukocyte Esterase NEG Urine RBC 1-4 Urine WBC 0-2 Ur Squamous Epith Cells TRACE Urine Bacteria TRACE Imaging Radiologist's Impressions: Impressions Chest X-Ray 12/20/20 14:45 IMPRESSION: No evidence for acute disease in the chest. Cervical Spine CT 12/20/20 14:47 IMPRESSION: Degenerative changes. No fracture or dislocation seen. Head CT 12/20/20 14:47 IMPRESSION: No acute findings. Assessment and Plan (1) Mild intermittent asthma: Status: Acute (2) Rhabdomyolysis: Status: Acute (3) HTN (hypertension): Status: Acute 70-year-old male found on the floor found to have mild rhabdomyolysis Fall complicated by Acute Rhabdomyolysis Aggressive IV fluids Monitor BMP and CPK Physical therapy Hypertension Carvedilol, diltiazem, monitor blood pressure Mild intermittent asthma No exacerbation, continue Advair or equivalent Schizoaffective disorder Olanzapine BPH Flomax Coronary disease Continue statin DVT prophylaxis with Lovenox Quality Stroke Does the patient have a stroke diagnosis?: No VTE Prior VTE?: No VTE Risk Level:: Medical - moderate - high VTE Device Contraindication: Treatment Not Indicated VTE Drug Contraindication: N/A - Med Ordered
--- NOTE | 2020-12-20 17:19 | PHA.MEDREC ---
Pharmacy Consult ? Medication Reconciliation Pharmacy has completed the medication reconciliation. There are no remarkable issues for provider's attention. Rupinder Luque, FernandaD
--- NOTE | 2020-12-20 17:20 | PC.NURSE ---
INCONTINENT CARE WAS PROVIDED BY THIS PCT .
[2020-12-20] MEDS: Lactated Ringers 1,000 ML 150 ML IVCONT (18:01)
[2020-12-20 18:20] LABS: COVID-19 Test Negative (Negative)
--- NOTE | 2020-12-20 18:39 | PC.NURSE ---
report given to DUARTE Sandoval. Per Jaime the room is not ready and needs to be cleaned. Pt will be transferred to room 443 by key bed installer
[2020-12-20] MEDS: Enoxaparin Sodium 40 MG/0.4 ML SYRINGE SUBCUT (20:52)
[2020-12-20] MEDS: OLANZapine 10 MG TABLET 20 MG PO (20:53)
[2020-12-20] MEDS: carvediloL 6.25 MG TABLET PO (20:53)
[2020-12-21] VITALS (10 sets, daily range): BP systolic 105–142; BP diastolic 57–72; PULSE 89–126; RESP 18–20; TEMP 36.4–37.2; O2SAT 84–94; BMI 36.0
[2020-12-21] MEDS: Lactated Ringers 1,000 ML 150 ML IVCONT ×2 (01:06→14:29)
[2020-12-21 07:30] LABS: Hematocrit 42.1 % (42-52); Hemoglobin 13.6 g/dl (14.0-18.0); Mean Corpuscular HGB Conc 32.3 g/dl (31.0-36.0); Mean Corpuscular Hemoglobin 27.9 pg (27.0-33.0); Mean Corpuscular Volume 86.4 fL (80-98); Mean Platelet Volume 9.1 fL (9.4-12.4); Platelet Count 145 X10*3/uL (160-400); Red Blood Count 4.87 X10*6/uL (4.60-5.80); Red Cell Distribution Width 13.4 % (11.0-16.0); White Blood Count 7.3 X10*3/uL (4.8-10.8)
[2020-12-21 08:02] LABS: Anion Gap 12 (12-20); Blood Urea Nitrogen 8 mg/dL (9-16); Calcium 8.4 mg/dL (8.4-10.2); Carbon Dioxide 25 mmol/L (22-29); Chloride 111 mmol/L (96-108); Creatinine Clr Calc Pharmacy 111.5; Estimated Glomerular Filt Rate > 60; Glucose Fasting 75 mg/dL (60-99); Potassium 3.6 mmol/L (3.3-5.1); Sodium 144 mmol/L (135-145)
[2020-12-21] MEDS: carvediloL 6.25 MG TABLET PO ×2 (09:43→19:56)
[2020-12-21] MEDS: Atorvastatin Calcium 20 MG TABLET PO (09:43)
[2020-12-21] MEDS: Tamsulosin HCL 0.4 MG CAPSULE PO (09:43)
[2020-12-21] MEDS: dilTIAZem HCL CD 180 MG CAP.ER.24H 360 MG PO (09:45)
[2020-12-21] MEDS: LORazepam 0.5 MG TABLET PO (10:12)
[2020-12-21] MEDS: Acetaminophen 325 MG TABLET 650 MG PO ×2 (10:12→19:55)
--- NOTE | 2020-12-21 10:45 | P.PNIM_ITS ---
Subjective Subjective Date of Service: 12/21/20 Interval History: cc: found on floor feels well today, no aches, no pains Cardiovascular Cardiovascular: Reports no additional cardiovascular complaints Respiratory Respiratory: Reports no additional respiratory complaints Physical Exam Vital Signs: Vital Signs: Last Vital Signs Temp 99.0 F 12/21/20 08:00 Pulse 126 H 12/21/20 10:08 Resp 18 12/21/20 08:00 BP 142/72 H 12/21/20 10:08 Pulse Ox 93 12/21/20 08:00 Body Mass Index 36.0 General: AO X 3, no acute distress Resp: CTA bilateral, no accessory muscles used CVS: S1,S2,RRR GI: soft, non tender, non distended Neuro: motor grossly intact, alert, resting tremor Psych: appropriate affect, impaired insight Objective Data Active Medications Acetaminophen (Acetaminophen 325 Mg Tablet) 650 mg PO Q6H PRN PRN Reason: Pain, Mild (Pain Scale 1-3) Last Admin: 12/21/20 10:12 Dose: 650 mg Documented by: ARISTEO Atorvastatin Calcium (Atorvastatin Calcium 20 Mg Tablet) 20 mg PO DAILY [facility] Last Admin: 12/21/20 09:43 Dose: 20 mg Documented by: ARISTEO Carvedilol (Carvedilol 6.25 Mg Tablet) 6.25 mg PO BID [facility]; Protocol Last Admin: 12/21/20 09:43 Dose: 6.25 mg Documented by: ARISTEO Diltiazem HCl (Diltiazem Hcl Cd 180 Mg Cap.Er.24h) 360 mg PO DAILY [facility]; Protocol Last Admin: 12/21/20 09:45 Dose: 360 mg Documented by: ARISTEO Enoxaparin Sodium (Enoxaparin Sodium 40 Mg/0.4 Ml Syringe) 40 mg SUBCUT Q24H [facility] Last Admin: 12/20/20 20:52 Dose: 40 mg Documented by: HENRY Fluticasone/Vilanterol (Fluticasone/Vilanterol 200/25 Blst.W.Dev) 1 puff INHALE DAILY [facility] Last Admin: 12/21/20 09:47 Dose: Not Given Documented by: ARISTEO Non-Admin Reason: resp Lactated Ringer's (Lr) 1,000 mls @ 150 mls/hr IVCONT .Q6H40M [facility] Last Infusion: 12/21/20 09:48 Dose: 0 mls/hr Documented by: ARISTEO Lorazepam (Lorazepam 0.5 Mg Tablet) 0.5 mg PO BID PRN PRN Reason: Anxiety Last Admin: 12/21/20 10:12 Dose: 0.5 mg Documented by: ARISTEO Olanzapine (Olanzapine 10 Mg Tablet) 20 mg PO BEDTIME [facility] Last Admin: 12/20/20 20:53 Dose: 20 mg Documented by: HENRY Pharmacy Consult (Consult Rx Perform Med Rec) 1 each MISCELLANE ONCE PRN PRN Reason: Consult order Sodium Chloride (0.9 % Sodium Chloride Flush 3 Ml Syringe) 3 ml IVFLUSH QSHIFT [facility] Last Admin: 12/21/20 09:43 Dose: Not Given Documented by: ARISTEO Non-Admin Reason: IV Running Tamsulosin HCl (Tamsulosin Hcl 0.4 Mg Capsule) 0.4 mg PO DAILY [facility] Last Admin: 12/21/20 09:43 Dose: 0.4 mg Documented by: ARISTEO Labs CBC & Chem 7: 12/21/20 07:07 12/21/20 07:07 Labs: Laboratory Results - last 24 hr 12/20/20 12/20/20 12/20/20 15:09 15:09 15:09 MCV 82.7 MCH 28.3 MCHC 34.3 RDW 12.8 Plt Count 163 MPV 8.9 L Immature Gran % (Auto) 0.3 Neut % (Auto) 87.1 H Lymph % (Auto) 3.3 L [place] % (Auto) 9.1 Eos % (Auto) 0.0 Baso % (Auto) 0.2 Lymph # (Auto) 0.4 L [place] # (Auto) 1.1 Eos # (Auto) 0.0 Baso # (Auto) 0.0 Abs Immat Gran (auto) 0.03 Absolute Neuts (auto) 10.3 H Absolute Nucleated RBC 0.000 Nucleated RBC % (auto) 0.0 Anion Gap 16 Estim Creat Clear Calc 95.0 Estimated GFR > 60 Random Glucose 99 Fasting Glucose Lactic Acid 1.8 Calcium 8.5 Total Bilirubin 1.6 H AST 105 H ALT 28 Alkaline Phosphatase 109 Total Creatine Kinase 6674 H Troponin I High Sens Total Protein 5.9 L Albumin 3.7 Lipase 19 Urine Color Urine Appearance Urine pH Ur Specific [place] Urine Protein Urine Glucose (UA) Urine Ketones Urine Blood Urine Nitrite Ur Leukocyte Esterase Urine RBC Urine WBC Ur Squamous Epith Cells Urine Bacteria COVID-19 (TIFFANY) COVID-19 Clin Com 12/20/20 12/20/20 12/20/20 15:09 15:33 17:19 MCV MCH MCHC RDW Plt Count MPV Immature Gran % (Auto) Neut % (Auto) Lymph % (Auto) [place] % (Auto) Eos % (Auto) Baso % (Auto) Lymph # (Auto) [place] # (Auto) Eos # (Auto) Baso # (Auto) Abs Immat Gran (auto) Absolute Neuts (auto) Absolute Nucleated RBC Nucleated RBC % (auto) Anion Gap Estim Creat Clear Calc Estimated GFR Random Glucose Fasting Glucose Lactic Acid Calcium Total Bilirubin AST ALT Alkaline Phosphatase Total Creatine Kinase Troponin I High Sens 9.9 Total Protein Albumin Lipase Urine Color YELLOW Urine Appearance CLEAR Urine pH 6.0 Ur Specific [place] <= 1.005 Urine Protein NEG Urine Glucose (UA) NEG Urine Ketones 40 Urine Blood 2+ H Urine Nitrite NEG Ur Leukocyte Esterase NEG Urine RBC 1-4 Urine WBC 0-2 Ur Squamous Epith Cells TRACE Urine Bacteria TRACE COVID-19 (TIFFANY) Negative COVID-19 Clin Com See Note 12/21/20 12/21/20 07:07 07:07 MCV 86.4 MCH 27.9 MCHC 32.3 RDW 13.4 Plt Count 145 L MPV 9.1 L Immature Gran % (Auto) Neut % (Auto) Lymph % (Auto) [place] % (Auto) Eos % (Auto) Baso % (Auto) Lymph # (Auto) [place] # (Auto) Eos # (Auto) Baso # (Auto) Abs Immat Gran (auto) Absolute Neuts (auto) Absolute Nucleated RBC 0.000 Nucleated RBC % (auto) 0.0 Anion Gap 12 Estim Creat Clear Calc 111.5 Estimated GFR > 60 Random Glucose Fasting Glucose 75 Lactic Acid Calcium 8.4 Total Bilirubin AST ALT Alkaline Phosphatase Total Creatine Kinase 5134 H Troponin I High Sens Total Protein Albumin Lipase Urine Color Urine Appearance Urine pH Ur Specific [place] Urine Protein Urine Glucose (UA) Urine Ketones Urine Blood Urine Nitrite Ur Leukocyte Esterase Urine RBC Urine WBC Ur Squamous Epith Cells Urine Bacteria COVID-19 (TIFFANY) COVID-19 Clin Com Assessment and Plan (1) Rhabdomyolysis: Status: Acute (2) Mild intermittent asthma: Status: Acute (3) Schizoaffective disorder: Status: Acute (4) HTN (hypertension): Status: Acute Assessment and Plan: 70-year-old male found on the floor found to have mild rhabdomyolysis Fall complicated by Acute Rhabdomyolysis CPK improving slower than expected continue Aggressive IV fluids Monitor BMP and CPK, no sign of renal failure so far Physical therapy Hypertension Carvedilol, diltiazem, monitor blood pressure Mild intermittent asthma No exacerbation, continue Advair or equivalent Schizoaffective disorder Olanzapine BPH Flomax Coronary disease Continue statin DVT prophylaxis with Lovenox Quality Stroke Does the patient have a stroke diagnosis?: No VTE Prior VTE?: No VTE Risk Level:: Medical - moderate - high VTE Device Contraindication: Treatment Not Indicated VTE Drug Contraindication: N/A - Med Ordered
--- NOTE | 2020-12-21 12:55 | MHC.CM.PN ---
Addendum entered by Siria Dillard 12/21/20 15:03: [facility] STAFF MEMBER MET [facility] PT AND CM. AFTER DISCUSSION, PT AGREES TO STR. PT REQUESTED REFERRALS TO [facility] AND [facility] IT IS CLOSE TO THE [facility] OFFICE. REFERRALS PLACED. Original Note: CM MET WITH PT WHO REPORTS HE LIVES ALONE PT REPORTS HE HAS A [employer] JOINER, GINO, WHO TAKES HIM TO APPTS AND SHOPPING PT DENIES HAVING ANY OTHER HOME SERVICES PT HAS A HCP ON FILE PT DOES NOT KNOW WHO HIS PCP IS IMM DELIVERED PT IS AWARE STR IS BEING RECOMMENDED, PT REPORTS HE HAS BEEN IN THE PAST AND IS NOT WILLING TO GO AGAIN PT IS WILLING TO HAVE HOME PT SERVICES. CM RECEIVED A CALL FROM ADAM ACEVEDO AT [facility]. SHE REPORTS THE PT HAS BEEN HAVING [place] AND HIS PCP HAS BEEN UNABLE TO DETERMINE THE CAUSE. SHE REPORTS THEY WERE HOPING THE PT COULD GO TO STR. CM EXPLAINED THE PT REFUSED STR, ADAM REPORTS ONE OF HER STAFF MEMBERS WILL BE IN TO SPEAK TO PT. SHE IS HOPING THEY CAN CONVINCE HIM TO GO TO STR. THE CHD WORKER WILL SPEAK TO CM ONCE SHE HAS MET WITH THE PT.
[2020-12-21] MEDS: Albuterol/Iprat 2.5/0.5MG 3 ML AMPUL.NEB INHALE (16:14)
[2020-12-21] MEDS: Furosemide 100 MG/10 ML VIAL 60 MG IVPUSH (16:39)
[2020-12-21] MEDS: Enoxaparin Sodium 40 MG/0.4 ML SYRINGE SUBCUT (17:44)
[2020-12-21] MEDS: OLANZapine 10 MG TABLET 20 MG PO (19:56)
[2020-12-22] VITALS (11 sets, daily range): BP systolic 111–144; BP diastolic 58–74; PULSE 69–101; RESP 16–20; TEMP 36.3–37.3; O2SAT 94–98
[2020-12-22] MEDS: Lactated Ringers 1,000 ML 150 ML IVCONT (03:04)
[2020-12-22 07:09] LABS: Hemoglobin 13.4 g/dl (14.0-18.0); Mean Corpuscular HGB Conc 32.7 g/dl (31.0-36.0); Mean Corpuscular Hemoglobin 28.8 pg (27.0-33.0); Mean Platelet Volume 9.8 fL (9.4-12.4); Platelet Count 141 X10*3/uL (160-400); Red Blood Count 4.66 X10*6/uL (4.60-5.80); Red Cell Distribution Width 13.8 % (11.0-16.0); White Blood Count 7.6 X10*3/uL (4.8-10.8)
[2020-12-22 07:26] LABS: Anion Gap 13 (12-20); Blood Urea Nitrogen 8 mg/dL (9-16); Calcium 8.5 mg/dL (8.4-10.2); Carbon Dioxide 30 mmol/L (22-29); Chloride 104 mmol/L (96-108); Creatinine Clr Calc Pharmacy 114.6; Estimated Glomerular Filt Rate > 60; Glucose Fasting 85 mg/dL (60-99); Potassium 3.5 mmol/L (3.3-5.1); Sodium 143 mmol/L (135-145)
[2020-12-22] MEDS: Fluticasone/Vilanterol 200/25 BLST.W.DEV 1 PUFF INHALE (07:37)
[2020-12-22] MEDS: Atorvastatin Calcium 20 MG TABLET PO (09:37)
[2020-12-22] MEDS: carvediloL 6.25 MG TABLET PO ×2 (09:37→19:31)
[2020-12-22] MEDS: Tamsulosin HCL 0.4 MG CAPSULE PO (09:37)
[2020-12-22] MEDS: dilTIAZem HCL CD 180 MG CAP.ER.24H 360 MG PO (09:38)
[2020-12-22] MEDS: Acetaminophen 325 MG TABLET 650 MG PO (09:41)
--- NOTE | 2020-12-22 10:36 | P.PNIM_ITS ---
Subjective Subjective Date of Service: 12/22/20 Interval History: cc: found on floor runny nose, blurry eyes, gunk in eyes Cardiovascular Cardiovascular: Reports no additional cardiovascular complaints Respiratory Respiratory: Reports no additional respiratory complaints Physical Exam Vital Signs: Vital Signs: Last Vital Signs Temp 99.1 F 12/22/20 08:00 Pulse 101 H 12/22/20 09:38 Resp 16 12/22/20 08:00 BP 140/65 H 12/22/20 09:38 Pulse Ox 94 12/22/20 08:00 Body Mass Index 36.0 General: AO X 3, no acute distress HHENT: prulence bilateral conjunctiva Resp: CTA bilateral, no accessory muscles used CVS: S1,S2,RRR GI: soft, non tender, non distended Neuro: motor grossly intact, alert, resting tremor Psych: appropriate affect, impaired insight Objective Data Active Medications Acetaminophen (Acetaminophen 325 Mg Tablet) 650 mg PO Q6H PRN PRN Reason: Pain, Mild (Pain Scale 1-3) Last Admin: 12/22/20 09:41 Dose: 650 mg Documented by: BOSSMAN Albuterol/Ipratropium (Albuterol/Iprat 2.5/0.5mg 3 Ml Ampul.Neb) 3 ml INHALE Q4H PRN PRN Reason: sob Last Admin: 12/21/20 16:14 Dose: 3 ml Documented by: DEANNA Atorvastatin Calcium (Atorvastatin Calcium 20 Mg Tablet) 20 mg PO DAILY [facility] Last Admin: 12/22/20 09:37 Dose: 20 mg Documented by: BOSSMAN Carvedilol (Carvedilol 6.25 Mg Tablet) 6.25 mg PO BID [facility]; Protocol Last Admin: 12/22/20 09:37 Dose: 6.25 mg Documented by: BOSSMAN Diltiazem HCl (Diltiazem Hcl Cd 180 Mg Cap.Er.24h) 360 mg PO DAILY [facility]; Protocol Last Admin: 12/22/20 09:38 Dose: 360 mg Documented by: BOSSMAN Enoxaparin Sodium (Enoxaparin Sodium 40 Mg/0.4 Ml Syringe) 40 mg SUBCUT Q24H [facility] Last Admin: 12/21/20 17:44 Dose: 40 mg Documented by: ARISTEO Erythromycin (Erythromycin Base 0.5% Oph Oin 1 Gm Tube) 1 cm EYE-BOTH QID [facility] Fluticasone/Vilanterol (Fluticasone/Vilanterol 200/25 Blst.W.Dev) 1 puff INHALE DAILY [facility] Last Admin: 12/22/20 07:37 Dose: 1 puff Documented by: DEANNA Lactated Ringer's (Lr) 1,000 mls @ 150 mls/hr IVCONT .Q6H40M [facility] Last Admin: 12/22/20 09:38 Dose: Not Given Documented by: BOSSMAN Non-Admin Reason: IV Running Lorazepam (Lorazepam 0.5 Mg Tablet) 0.5 mg PO BID PRN PRN Reason: Anxiety Last Admin: 12/21/20 10:12 Dose: 0.5 mg Documented by: ARISTEO Olanzapine (Olanzapine 10 Mg Tablet) 20 mg PO BEDTIME [facility] Last Admin: 12/21/20 19:56 Dose: 20 mg Documented by: PHYLICIA Pharmacy Consult (Consult Rx Perform Med Rec) 1 each MISCELLANE ONCE PRN PRN Reason: Consult order Sodium Chloride (0.9 % Sodium Chloride Flush 3 Ml Syringe) 3 ml IVFLUSH QSHIFT [facility] Last Admin: 12/22/20 09:37 Dose: Not Given Documented by: BOSSMAN Non-Admin Reason: IV Running Tamsulosin HCl (Tamsulosin Hcl 0.4 Mg Capsule) 0.4 mg PO DAILY [facility] Last Admin: 12/22/20 09:37 Dose: 0.4 mg Documented by: BOSSMAN Labs CBC & Chem 7: 12/22/20 06:07 12/22/20 06:07 Labs: Laboratory Results - last 24 hr 12/22/20 12/22/20 06:07 06:07 MCV 88.0 MCH 28.8 MCHC 32.7 RDW 13.8 Plt Count 141 L MPV 9.8 Absolute Nucleated RBC 0.000 Nucleated RBC % (auto) 0.0 Anion Gap 13 Estim Creat Clear Calc 114.6 Estimated GFR > 60 Fasting Glucose 85 Calcium 8.5 Total Creatine Kinase 2122 H D Microbiology Microbiology Results: Microbiology 12/20/20 15:09 Blood Culture - Final Blood - Venous Coag negative Staphylococcus 12/20/20 15:09 Blood Culture - Preliminary Blood - Venous No growth after 24 hours. Assessment and Plan (1) Rhabdomyolysis: Status: Acute (2) Mild intermittent asthma: Status: Acute (3) Schizoaffective disorder: Status: Acute (4) HTN (hypertension): Status: Acute (5) Acute bacterial conjunctivitis of both eyes: Status: Acute (6) Acute on chronic respiratory failure with hypoxia: Status: Acute Assessment and Plan: 70-year-old male found on the floor found to have mild rhabdomyolysis Fall complicated by Acute Rhabdomyolysis CPK improving, now 2122 from 6674 will dc iv fluids Monitor BMP and CPK, no sign of renal failure so far Physical therapy - likely will need STR at [facility] acute bilateral bacterial conjunctivitis likely started as viral, now with significant purulence, will start antibiotics ointment acute hypoxic respiratory failure likely due to acute exacerbation of mild intermittent asthma improving with nebs, continue breo will hold off on systemic steroids for now if able to wean off o2, no longer wheezing (was wheezing somewhat yesterday afternoon), cxr negative Hypertension Carvedilol, diltiazem, monitor blood pressure Schizoaffective disorder Olanzapine BPH Flomax Coronary disease Continue statin DVT prophylaxis with Lovenox Quality Stroke Does the patient have a stroke diagnosis?: No VTE Prior VTE?: No VTE Risk Level:: Medical - moderate - high VTE Device Contraindication: Treatment Not Indicated VTE Drug Contraindication: N/A - Med Ordered
[2020-12-22] MEDS: methylPREDNISolone Sod Succ 40 MG/ML VIAL IVPUSH (13:16)
[2020-12-22] MEDS: Erythromycin Base 0.5% Oph Oin 1 GM TUBE 1 CM EYE-BOTH ×3 (13:30→19:24)
[2020-12-22] MEDS: Enoxaparin Sodium 40 MG/0.4 ML SYRINGE SUBCUT (19:23)
[2020-12-22] MEDS: Melatonin 3 MG TABLET 9 MG PO (19:23)
[2020-12-22] MEDS: 0.9 % Sodium Chloride Flush 3 ML SYRINGE IVFLUSH (19:23)
[2020-12-22] MEDS: OLANZapine 10 MG TABLET 20 MG PO (19:23)
[2020-12-22] MEDS: prednisoLONE Acetate 1 % Oph Susp 5 ML DRPBTL 1 DROP EYE-BOTH (20:43)
[2020-12-23] VITALS (9 sets, daily range): BP systolic 112–139; BP diastolic 50–69; PULSE 68–93; RESP 18–20; TEMP 36.3–36.9; O2SAT 92–95
[2020-12-23] MEDS: 0.9 % Sodium Chloride Flush 3 ML SYRINGE IVFLUSH ×3 (00:26→20:12)
[2020-12-23] MEDS: methylPREDNISolone Sod Succ 40 MG/ML VIAL IVPUSH ×3 (00:26→23:02)
[2020-12-23] MEDS: Omeprazole 20 MG CAPSULE.DR PO (06:30)
[2020-12-23 06:37] LABS: Hematocrit 43.1 % (42-52); Hemoglobin 13.9 g/dl (14.0-18.0); Mean Corpuscular HGB Conc 32.3 g/dl (31.0-36.0); Mean Corpuscular Hemoglobin 28.5 pg (27.0-33.0); Mean Corpuscular Volume 88.3 fL (80-98); Mean Platelet Volume 9.7 fL (9.4-12.4); Platelet Count 149 X10*3/uL (160-400); Red Blood Count 4.88 X10*6/uL (4.60-5.80); Red Cell Distribution Width 13.3 % (11.0-16.0); White Blood Count 8.4 X10*3/uL (4.8-10.8)
[2020-12-23 07:00] LABS: Anion Gap 12 (12-20); Blood Urea Nitrogen 9 mg/dL (9-16); Calcium 8.8 mg/dL (8.4-10.2); Carbon Dioxide 31 mmol/L (22-29); Chloride 104 mmol/L (96-108); Creatinine Clr Calc Pharmacy 125.2; Estimated Glomerular Filt Rate > 60; Glucose Fasting 159 mg/dL (60-99); Sodium 143 mmol/L (135-145)
[2020-12-23] MEDS: Fluticasone Propionate Nasal 16 GM SPRAY 2 SPRAY NOSTRIL-B (09:33)
[2020-12-23] MEDS: dilTIAZem HCL CD 180 MG CAP.ER.24H 360 MG PO (09:33)
[2020-12-23] MEDS: prednisoLONE Acetate 1 % Oph Susp 5 ML DRPBTL 1 DROP EYE-BOTH ×2 (09:33→20:16)
[2020-12-23] MEDS: carvediloL 6.25 MG TABLET PO ×2 (09:34→20:12)
[2020-12-23] MEDS: Atorvastatin Calcium 20 MG TABLET PO (09:34)
[2020-12-23] MEDS: Erythromycin Base 0.5% Oph Oin 1 GM TUBE 1 CM EYE-BOTH ×3 (09:34→20:12)
[2020-12-23] MEDS: Tamsulosin HCL 0.4 MG CAPSULE PO (09:34)
--- NOTE | 2020-12-23 09:34 | HO.PM.IMPN ---
Subjective Subjective Date of Service: 12/23/20 Interval History: cc: found on floor sob on exertion Cardiovascular Cardiovascular: Reports no additional cardiovascular complaints Respiratory Respiratory: Reports no additional respiratory complaints Physical Exam Vital Signs: Vital Signs: Last Vital Signs Temp 98.1 F 12/23/20 07:28 Pulse 81 12/23/20 07:28 Resp 18 12/23/20 07:28 BP 114/56 L 12/23/20 07:28 Pulse Ox 95 12/23/20 07:28 Body Mass Index 36.0 General: AO X 3, no acute distress HHENT: bilateral inflamed conjunctiva Resp:? CTA bilateral, no accessory muscles used CVS: S1,S2,RRR GI: soft, non tender, non distended Neuro:? motor grossly intact, alert, resting tremor Psych: appropriate affect, impaired insight? Objective Data Active Medications Acetaminophen (Acetaminophen 325 Mg Tablet) 650 mg PO Q6H PRN PRN Reason: Pain, Mild (Pain Scale 1-3) Last Admin: 12/22/20 09:41 Dose: 650 mg Documented by: BOSSMAN Albuterol/Ipratropium (Albuterol/Iprat 2.5/0.5mg 3 Ml Ampul.Neb) 3 ml INHALE Q4H PRN PRN Reason: sob Last Admin: 12/21/20 16:14 Dose: 3 ml Documented by: DEANNA Atorvastatin Calcium (Atorvastatin Calcium 20 Mg Tablet) 20 mg PO DAILY [facility] Last Admin: 12/22/20 09:37 Dose: 20 mg Documented by: BOSSMAN Carvedilol (Carvedilol 6.25 Mg Tablet) 6.25 mg PO BID [facility]; Protocol Last Admin: 12/22/20 19:31 Dose: 6.25 mg Documented by: EDOUARD Diltiazem HCl (Diltiazem Hcl Cd 180 Mg Cap.Er.24h) 360 mg PO DAILY [facility]; Protocol Last Admin: 12/22/20 09:38 Dose: 360 mg Documented by: BOSSMAN Enoxaparin Sodium (Enoxaparin Sodium 40 Mg/0.4 Ml Syringe) 40 mg SUBCUT Q24H [facility] Last Admin: 12/22/20 19:23 Dose: 40 mg Documented by: EDOUARD Erythromycin (Erythromycin Base 0.5% Oph Oin 1 Gm Tube) 1 cm EYE-BOTH QID [facility] Last Admin: 12/22/20 19:24 Dose: 1 cm Documented by: EDOUARD Fluticasone Propionate (Fluticasone Propionate Nasal 16 Gm [place]) 2 spray NOSTRIL-B DAILY [facility] Fluticasone/Vilanterol (Fluticasone/Vilanterol 200/25 Blst.W.Dev) 1 puff INHALE DAILY [facility] Last Admin: 12/22/20 07:37 Dose: 1 puff Documented by: DEANNA Ketoconazole (Ketoconazole 2 % Shampoo 120 Ml Btl) 1 appl TOPICAL DAILY [facility]; Protocol Lorazepam (Lorazepam 0.5 Mg Tablet) 0.5 mg PO BID PRN PRN Reason: Anxiety Last Admin: 12/21/20 10:12 Dose: 0.5 mg Documented by: ARISTEO Melatonin (Melatonin 3 Mg Tablet) 9 mg PO BEDTIME [facility] Last Admin: 12/22/20 19:23 Dose: 9 mg Documented by: EDOUARD Methylprednisolone Sodium Succinate (Methylprednisolone Sod Succ 40 Mg/Ml Vial) 40 mg IVPUSH Q12H [facility] Last Admin: 12/23/20 00:26 Dose: 40 mg Documented by: PHYLICIA Non-Formulary Medication (Clobetasol) 1 appl TOPICAL BID [facility] Olanzapine (Olanzapine 10 Mg Tablet) 20 mg PO BEDTIME [facility] Last Admin: 12/22/20 19:23 Dose: 20 mg Documented by: EDOUARD Comments: patient wants to take meds early so he can go to bed Omeprazole (Omeprazole 20 Mg Capsule.Dr) 20 mg PO DAILY@0630 [facility] Last Admin: 12/23/20 06:30 Dose: 20 mg Documented by: PHYILCIA Pharmacy Consult (Consult Rx Perform Med Rec) 1 each MISCELLANE ONCE PRN PRN Reason: Consult order Prednisolone Acetate (Prednisolone Acetate 1 % Oph Susp 5 Ml Drpbtl) 1 drop EYE-BOTH BID [facility] Last Admin: 12/22/20 20:43 Dose: 1 drop Documented by: PHYLICIA Sodium Chloride (0.9 % Sodium Chloride Flush 3 Ml Syringe) 3 ml IVFLUSH QSHIFT [facility] Last Admin: 12/23/20 00:26 Dose: 3 ml Documented by: PHYLICIA Tamsulosin HCl (Tamsulosin Hcl 0.4 Mg Capsule) 0.4 mg PO DAILY [facility] Last Admin: 12/22/20 09:37 Dose: 0.4 mg Documented by: BOSSMAN Labs CBC & Chem 7: 12/23/20 05:58 12/23/20 05:58 Labs: Laboratory Results - last 24 hr 12/23/20 12/23/20 05:58 05:58 MCV 88.3 MCH 28.5 MCHC 32.3 RDW 13.3 Plt Count 149 L MPV 9.7 Absolute Nucleated RBC 0.000 Nucleated RBC % (auto) 0.0 Anion Gap 12 Estim Creat Clear Calc 125.2 Estimated GFR > 60 Fasting Glucose 159 H D Calcium 8.8 Total Creatine Kinase 848 H D Microbiology Microbiology Results: Microbiology 12/20/20 15:09 Blood Culture - Preliminary Blood - Venous No growth after 48 hours. 12/20/20 15:09 Blood Culture - Final Blood - Venous Coag negative Staphylococcus Assessment and Plan (1) Rhabdomyolysis: Status: Acute (2) Mild intermittent asthma: Status: Acute (3) Schizoaffective disorder: Status: Acute (4) HTN (hypertension): Status: Acute (5) Acute bacterial conjunctivitis of both eyes: Status: Acute (6) Acute on chronic respiratory failure with hypoxia: Status: Acute Assessment and Plan: 70-year-old male found on the floor found to have mild rhabdomyolysis Fall complicated by Acute Rhabdomyolysis CPK improving, improved to 2122 from 6674 now off iv fluids no sign of renal failure Physical therapy - likely will need STR at SNF acute bilateral bacterial conjunctivitis likely started as viral, now with significant purulence continue antibiotics ointment acute hypoxic respiratory failure likely due to acute exacerbation of mild intermittent asthma improving with nebs, continue breo, added solumedrol wean off o2 as tolerated Hypertension Carvedilol, diltiazem, monitor blood pressure Schizoaffective disorder Olanzapine BPH Flomax Coronary disease Continue statin DVT prophylaxis with Lovenox Quality Stroke Does the patient have a stroke diagnosis?: No VTE Prior VTE?: No VTE Risk Level:: Medical - moderate - high VTE Device Contraindication: Treatment Not Indicated VTE Drug Contraindication: N/A - Med Ordered
[2020-12-23] MEDS: Fluticasone/Vilanterol 200/25 BLST.W.DEV 1 PUFF INHALE (15:45)
[2020-12-23] MEDS: Enoxaparin Sodium 40 MG/0.4 ML SYRINGE SUBCUT (16:45)
[2020-12-23] MEDS: Melatonin 3 MG TABLET 9 MG PO (20:12)
[2020-12-23] MEDS: OLANZapine 10 MG TABLET 20 MG PO (20:12)
[2020-12-24] VITALS (9 sets, daily range): BP systolic 110–138; BP diastolic 59–64; PULSE 57–82; RESP 16–20; TEMP 36.6–37.1; O2SAT 90–94
[2020-12-24] MEDS: Omeprazole 20 MG CAPSULE.DR PO (05:41)
[2020-12-24] MEDS: Fluticasone/Vilanterol 200/25 BLST.W.DEV 1 PUFF INHALE (08:37)
[2020-12-24] MEDS: dilTIAZem HCL CD 180 MG CAP.ER.24H 360 MG PO (08:47)
[2020-12-24] MEDS: 0.9 % Sodium Chloride Flush 3 ML SYRINGE IVFLUSH (08:47)
[2020-12-24] MEDS: Tamsulosin HCL 0.4 MG CAPSULE PO (08:48)
[2020-12-24] MEDS: prednisoLONE Acetate 1 % Oph Susp 5 ML DRPBTL 1 DROP EYE-BOTH (08:48)
[2020-12-24] MEDS: carvediloL 6.25 MG TABLET PO (08:48)
[2020-12-24] MEDS: Atorvastatin Calcium 20 MG TABLET PO (08:48)
[2020-12-24] MEDS: Erythromycin Base 0.5% Oph Oin 1 GM TUBE 1 CM EYE-BOTH ×2 (08:48→16:14)
[2020-12-24] MEDS: Ketoconazole 2 % Shampoo 120 ML BTL 1 APPL TOPICAL (08:49)
[2020-12-24] MEDS: Fluticasone Propionate Nasal 16 GM SPRAY 2 SPRAY NOSTRIL-B (08:50)
--- NOTE | 2020-12-24 09:34 | P.CDIC_ITS ---
CDI Concurrent Query Documentation Clarification: PHYSICIAN'S DOCUMENTATION REQUEST Date of Query: 12/24/20 0935 Patient Name: Timothy Muñiz Admit Date: 12/21/20 Dear Doctor, A review of the medical record indicates additional documentation may be needed. Please review below and update the documentation accordingly. Clinical Indicators: The following diagnoses or signs and symptoms were noted in the patient record: Lab Tests: NA 129 Risk Factors/Clinical Indicators/Treatments Received IVF Based on the above, could you clarify in the Progress Notes the appropriate diagnosis, if significant, that supports the above abnormalities and additional evaluation, monitoring, and/or treatment rendered: Hyponatremia No Hyponatremia * Other (please specify) * Unable to determine Use of terms such as suspected, likely, concern for, or probable (associated with a specific diagnosis that is being evaluated, monitored, or treated as if it exists) are acceptable and can be coded in the inpatient setting, when documented at the time of discharge. Thank you, Gena Grove RN Extension: [phone] Please use your independent medical judgment in providing your response. THIS QUERY IS PART OF THE PERMANENT MEDICAL RECORD Provider Response: Other Other Diagnosis: hyponatremia
--- NOTE | 2020-12-24 11:08 | PM.DS ---
DS: Providers Provider Date of Service: 12/24/20 Date of admission: 12/21/20 09:45 Primary care physician: Unknown Physician DS: Diagnosis Discharge Diagnosis (1) Rhabdomyolysis: Status: Acute (2) Mild intermittent asthma: Status: Acute (3) Schizoaffective disorder: Status: Acute (4) HTN (hypertension): Status: Acute (5) Acute bacterial conjunctivitis of both eyes: Status: Acute (6) Acute on chronic respiratory failure with hypoxia: Status: Acute DS: Summary Hospital Course Hospital Course: Patient was admitted for fall complicated by acute rhabdomyolysis. He was treated with IV fluids and CPK improved from 6674 on admission to 880 for discharge. Patient was also noted to have acute bilateral bacterial conjunctivitis which was treated with antibiotic ointment and resolved. Course was complicated by acute hypoxic respiratory failure secondary to acute exacerbation mild intermittent asthma. He was treated with nebulizer treatments and methylprednisolone. Symptoms improved patient will be discharged on 5 more days of p.o. prednisone. Due to deconditioning and debility patient will be discharged to halfway facility for short-term rehab. He is expected to need less than 30 days. Time Spent with Patient Time attestation: Total time spent providing and/or coordinating discharge services: Discharge coordination time: Greater than 30 minutes Quality: Stroke Does the patient have a stroke diagnosis?: No Physical Exam Vital Signs: Vital Signs: Last Vital Signs Temp 98.6 F 12/24/20 07:23 Pulse 82 12/24/20 08:48 Resp 18 12/24/20 07:23 BP 120/59 L 12/24/20 08:48 Pulse Ox 90 L 12/24/20 10:56 Body Mass Index 36.0 General: AO X 3, no acute distress HHENT: bilateral inflamed conjunctiva Resp:? CTA bilateral, no accessory muscles used CVS: S1,S2,RRR GI: soft, non tender, non distended Neuro:? motor grossly intact, alert, resting tremor Psych: appropriate affect, impaired insight? DS: Data Data Completed and Pending Labs on day of discharge: Preliminary micro results at discharge 12/20/20 15:09 Blood Culture - Preliminary Blood - Venous No growth after 48 hours. Discharge Plan Discharge Patient Disposition: [facility] Discharge Diagnosis: rhabdo, asthma Referrals: Physician,Unknown [Primary Care Provider] - 1 Week Discharge Medications: New prednisone 20 mg tablet 40 mg PO DAILY Qty: 10 RF: 0 Continued prednisolone acetate 1 % drops,suspension 1 drp ophthalmic (eye) BID RF: 0 fluticasone propion-salmeterol [Advair Diskus] 500-50 mcg/dose blister with device 1 puff inhalation BID RF: 0 ketoconazole 2 % shampoo 1 appl topical DAILY RF: 0 cetirizine 10 mg Tablet 10 mg PO BEDTIME RF: 0 clobetasol 0.05 % Ointment 1 appl TOPICAL BID RF: 0 albuterol sulfate 90 mcg/actuation Hfa Aerosol Inhaler 2 puff INHALATION Q6H PRN (Reason: Wheezing) RF: 0 fluticasone propionate 50 mcg/actuation [place],Suspension 2 spray INTRANASAL DAILY RF: 0 lorazepam 0.5 mg tablet 0.5 mg PO BID PRN (Reason: Anxiety) RF: 0 atorvastatin 20 mg tablet 20 mg PO DAILY RF: 0 carvedilol 6.25 mg tablet 6.25 mg PO BID RF: 0 olanzapine 20 mg tablet 20 mg PO BEDTIME RF: 0 omeprazole 20 mg capsule,delayed release(DR/EC) 20 mg PO DAILY RF: 0 tamsulosin 0.4 mg capsule 0.4 mg PO DAILY RF: 0 diltiazem HCl 360 mg capsule,extended release 24 hr 360 mg PO DAILY RF: 0 melatonin 10 mg capsule 10 mg PO BEDTIME RF: 0 Discharge Orders: Discharge Order (Routine); Ordered 12/24/20 Ordered By: Felipe Vanegas Diet: advance to usual diet Activity on Discharge: As tolerated Stand Alone Forms: Patient Portal Discharge page Care Plan Goals: Recovery Health Concerns: Asthma, rhabdo Plan of Treatment: Rehab, 5 more days of prednisone Assessment: See above
[2020-12-24] MEDS: methylPREDNISolone Sod Succ 40 MG/ML VIAL IVPUSH (11:22)
--- NOTE | 2020-12-24 12:12 | MHC.CM.PN ---
Patient has been medically cleared for dc to [facility] today. CM met with Patient at bedside and addressed second IMM with him, providing him with the original and placing a copy on the chart. Patient will dc to [facility] today at 4PM. via [facility]. Patient is aware of and in agreement with the dc plan. CM has informed first contact/Mady @ [phone] and [facility] Worker/Mary @ [phone] of the dc plan.
[2020-12-24 12:58] LABS: COVID-19 Test Negative (Negative); IDNOW Serial# 9DD0AD1C
[2020-12-24] MEDS: Enoxaparin Sodium 40 MG/0.4 ML SYRINGE SUBCUT (16:14)
== END 2020-12-24 16:39 | disposition skilled nursing facility (03) | DRG 564 ==
LOC: HO.ED 17:04 → HO.EDOVER 17:14 → HO.IMC 17:24
PROVIDERS: Admitting Provider Internal Medicine; Emergency Provider Emergency Medicine Emergency Medical Services; PCP Internal Medicine; Visit Provider Internal Medicine
DX: T79.6XXA Traumatic ischemia of muscle, initial encounter (principal); J96.01 Acute respiratory failure with hypoxia; E87.1 Hypo-osmolality and hyponatremia; J45.20 Mild intermittent asthma, uncomplicated; I25.10 Atherosclerotic heart disease of native coronary artery without angina pectoris; I10 Essential (primary) hypertension; W19.XXXA Unspecified fall, initial encounter; Y93.9 Activity, unspecified; H10.33 Unspecified acute conjunctivitis, bilateral; Y92.002 Bathroom of unspecified non-institutional (private) residence as the place of occurrence of the external cause; N40.0 Benign prostatic hyperplasia without lower urinary tract symptoms; F25.9 Schizoaffective disorder, unspecified; Z20.822 Contact with and (suspected) exposure to COVID-19; Z88.0 Allergy status to penicillin; Z79.51 Long term (current) use of inhaled steroids; Z79.899 Other long term (current) drug therapy
CPT/HCPCS: 36415; 70450; 71045; 72125; 80048; 80053; 81001; 82550; 83605; 83690; 84484; 85025; 85027; 87040; 87147; 87205; 87635; 93005; 94640; 96360; 97110; 97162; 99285; J1650; J1940; J2920

== ENCOUNTER 2021-01-19 15:32 | Inpatient (IN) | payer MEDICARE, MEDICAID, SELFPAY ==
--- NOTE | 2021-01-19 | EEG_ITS ---
This is a 16-channel EEG with an EKG lead. The patient is reported awake and drowsy during the tracing. Background EEG rhythm is 5 to 7 hertz, 5 to 50 microvolt posteriorly and lower amplitude fast anteriorly. Photic stimulation does not produce any significant driving. Hyperventilation is not performed. The patient was in and out of drowsiness. Cardiac lead does not reveal any significant arrhythmia. No definite sharp wave spikes, paroxysmal tendency, or asymmetry noted. IMPRESSION: Generalized slowing with no evidence of seizure disorder. MD AURY Wallis/KAYLYNN / [id number]
--- NOTE | ~2021-01-19 | CT_ITS ---
EXAMINATION: CT HEAD WITHOUT CONTRAST CLINICAL INFORMATION: Syncope COMPARISON: CT of the head 12/20/2020 TECHNIQUE: Contiguous axial imaging was performed from the skull base to vertex without intravenous administration of contrast. This CT examination was performed using dose optimization techniques as appropriate, variously including the following: *Automated exposure control *Adjustment of mA and/or kV according to patient size (this includes techniques or standardized protocols for targeted exams where dose is matched to indication/reason for exam; i.e. extremities or head) *Use of iterative reconstruction technique DLP: 745 mGy-cm FINDINGS: There is no evidence of acute intracranial hemorrhage or territorial infarction. No abnormal mass effect or midline shift is seen. Mayers to white matter differentiation is well preserved. No extra-axial fluid collections are identified. Again demonstrated are mildly prominent extra-axial CSF spaces and ventricles, suggestive of mild generalized atrophy. There is no abnormal attenuation within the brain parenchyma. The osseous structures and soft tissues are normal. There is some opacification of a few ethmoid air cells on the left. The paranasal sinuses and mastoid air cells are otherwise clear. CT/CT head/brain wo con IMPRESSION: No acute intracranial pathology.
--- NOTE | ~2021-01-19 | XR_ITS ---
EXAMINATION: XR CHEST CLINICAL INFORMATION: Syncope COMPARISON: 12/21/2020 TECHNIQUE: Frontal view of the chest was obtained. FINDINGS: Stable heart size. Unchanged large hiatal hernia. Calcifications of the thoracic aorta. Adequate expansion of the lungs. No focal consolidation. No pleural effusion or pneumothorax. No acute osseous abnormality. Degenerative changes of the thoracic spine and bilateral shoulders. XR/XR chest 1V IMPRESSION: No acute disease within the chest. Redemonstration of large hiatal hernia.
--- NOTE | 2021-01-19 15:34 | ECG_ITS ---
Test Reason : SYNCOPY Blood Pressure : / mmHG Vent. Rate : 104 BPM Atrial Rate : 104 BPM P-R Int : 158 ms QRS Dur : 082 ms QT Int : 320 ms P-R-T Axes : 063 074 035 degrees QTc Int : 420 ms Sinus tachycardia Nonspecific ST abnormality Inferior leads Low voltage QRS Abnormal ECG When compared with ECG of 20-DEC-2020 14:59, No significant change was found Referred By: Generic ED Physician Electronically Signed By:SLICK DOMINGUEZ MD
[2021-01-19 15:40] VITALS: BP 125/82; BP 125/83; PULSE 108; PULSE 115; RESP 18; TEMP 38.3; O2SAT 89; O2SAT 98; BMI 31.7
--- NOTE | 2021-01-19 15:45 | ED_ITS ---
HPI - General Adult General Chief complaint: Syncope Stated complaint: syncope Time Seen by Provider: 01/19/21 15:42 Source: patient and EMS Mode of arrival: EMS Limitations: no limitations History of Present Illness HPI narrative: 70 years old male brought in by ambulance for evaluation of syncope x2. Patient was found by bystanders in the building after found him in the hallway on the grounds passing out, patient remembers that he passed out twice today, no chest pain, no difficulty breathing, no abdominal pain. Patient the Emergency Department is diaphoretic, with tremors, patient otherwise complains of no symptoms, found to have fever of 101. No sick contacts, no recent travel. Patient had similar episode in the past but do no what is causing his passing out. Related Data Home Medications Medication Instructions Recorded Confirmed atorvastatin 20 mg tablet 20 mg PO DAILY 10/11/20 12/20/20 carvedilol 6.25 mg tablet 6.25 mg PO BID 10/11/20 12/20/20 diltiazem HCl 360 mg capsule,24 360 mg PO DAILY 10/11/20 12/20/20 hr,extended release lorazepam 0.5 mg tablet 0.5 mg PO BID PRN 10/11/20 12/20/20 melatonin 10 mg capsule 10 mg PO BEDTIME 10/11/20 12/20/20 olanzapine 20 mg tablet 20 mg PO BEDTIME 10/11/20 12/20/20 omeprazole 20 mg capsule,delayed 20 mg PO DAILY 10/11/20 12/20/20 release tamsulosin 0.4 mg capsule 0.4 mg PO DAILY 10/11/20 12/20/20 albuterol sulfate 90 mcg/actuation 2 puff INHALATION Q6H PRN 12/20/20 12/20/20 aerosol inhaler cetirizine 10 mg tablet 10 mg PO BEDTIME 12/20/20 12/20/20 clobetasol 0.05 % topical ointment 1 appl TOPICAL BID 12/20/20 12/20/20 fluticasone 500 mcg-salmeterol 50 1 puff INHALATION BID 12/20/20 12/20/20 mcg/dose blistr powdr for inhalation (Advair Diskus) fluticasone propionate 50 2 spray INTRANASAL DAILY 12/20/20 12/20/20 mcg/actuation nasal spray,suspension ketoconazole 2 % shampoo 1 appl TOPICAL DAILY 12/20/20 12/20/20 prednisolone acetate 1 % eye 1 drp OPHTHALMIC (EYE) BID 12/20/20 12/20/20 drops,suspension Previous Rx's Medication Instructions Recorded prednisone 20 mg tablet 40 mg PO DAILY #10 tab 12/24/20 Allergies Allergy/AdvReac Type Severity Reaction Status Date / Time Penicillins [PENICILLINS] Allergy Unknown EYES GET Verified 11/15/20 13:29 RED Review of Systems Review of Systems: All other systems are reviewed and are negative Constitutional: Reports as per HPI and Reports no additional constitutional complaints Eyes: Reports as per HPI and Reports no additional eye complaints Reports system reviewed and no additional complaints, except as documented Cardiovascular: Reports as per HPI and Reports no additional cardiovascular complaints Respiratory: Reports as per HPI and Reports no additional respiratory complaints Gastrointestinal: Reports as per HPI and Reports no additional gastrointestinal complaints Genitourinary: Reports no additional female genitourinary complaints Musculoskeletal: Reports no additional musculoskeletal complaints Skin/Breast: Reports system reviewed and no additional complaints, except as docu Psychiatric: Reports no additional psychiatric complaints Endocrine: Reports no additional endocrine complaints Hematologic/Lymphatic: Reports no additional hematologic/lymphatic complaints Allergic/Immunologic: Reports no additional allergic/immunologic complaints Reports system reviewed and no additional complaints, except as documented and Reports Abnormal speech present [facility] Past Medical History Medical History Coronary artery disease Heme + stool HTN (hypertension) Mild intermittent asthma Schizoaffective disorder Tremor Family History Family History Unknown No problems noted. Mother Colon cancer Social History Social History Household Members: None Household Members Other:: lives alone-has patient advocate Housing: Apartment Do you presently have visiting nurse or other home services: No Alcohol intake: never Patient Tobacco Use Status: Never used Tobacco Advance Directives: No Advance Directives Information Provided: No service: No Current occupational status: disabled Physical Exam Vital Signs: Vital Signs: Last Vital Signs Temp 101 F H 01/19/21 15:40 Pulse 108 H 01/19/21 15:40 Resp 18 01/19/21 15:40 BP 125/82 01/19/21 15:40 Pulse Ox 89 L 01/19/21 15:40 Body Mass Index 31.7 Vital signs have been reviewed as appeared to be correct. Blood pressure normal. Heart rate normal. Respiration rate normal. Temperature normal. Oxyg en saturation normal. Appearance: Alert. Oriented X3. No acute distress. Head: Normal external exam. Normocephalic. Atraumatic. No Kinsey signs noted. No raccoon eyes noted Eyes: PERRLA. EOMI. Conjunctiva and sclera normal. Eyelids normal. ENT: TM's Normal. Pharynx normal. Uvula midline. Moist mucous membranes. No trismus noted. No drooling noted. No muffled voice noted. Neck: Normal inspection. Neck supple. FROM. No adenopathy. Thyroid Normal. No meningeal signs. No neck mass noted. CVS: Normal heart rate and rhythm. Heart sound normal. No murmurs noted. Pulses normal throughout. Respiratory: No respiratory distress. Painless inspiration. Breath sounds no rmal. No wheezes/rales/rhonchi noted. Chest nontender. No accessory muscle usage noted or decreased air movement noted. Abdomen: Soft and nontender. Bowel sounds normal in all 4 quadrants. No disten tion noted. No organomegaly noted. No visible injury noted. Back: No CVA tenderness. Full range of motion noted. Skin: Skin warm and dry. Normal skin color. Normal skin turgor. No rashes/lesions/lacerations noted. Extremities: No lower extremity edema. Extremities exhibit normal range of mo tion. Extremities nontender. Neuro: Oriented X 3. Cranial nerve exam: II-XII are grossly intact No motor deficit. No sensory deficit. Reflexes normal. Course Course Course Narrative: Assessment and plan. 70 years old male came in for evaluation of syncopal episode x2, patient also found to be febrile, with leukocytosis, and elevated lactic acid, no obvious source of infection. And patient have no symptoms, meningitis clinically is not favorable diagnosis since patient declined headache, no neck stiffness, no photophobia, no evidence of skin cellulitis, no UTI symptoms, no upper respirat ory symptoms. Will give empirical antibiotic broad-spectrum coverage until discover the source of the fever. Medical Decision Making Medical Records Medical records reviewed: Yes I reviewed the patient's medical records. Lab Data Lab results reviewed: Yes I reviewed the patient's lab results. Result diagrams: 01/19/21 15:50 01/19/21 15:50 Labs: Lab Results 01/19/21 01/19/21 01/19/21 Range/Units 15:42 15:50 15:50 WBC 12.1 H (4.8-10.8) X10*3/uL RBC 5.13 (4.60-5.80) X10*6/uL Hgb 14.4 (14.0-18.0) g/dl Hct 44.5 (42.0-52.0) % MCV 86.7 (80.0-98.0) fL MCH 28.1 (27.0-33.0) pg MCHC 32.4 (31.0-36.0) g/dl RDW 13.4 (11.0-16.0) % Plt Count 239 (160-400) X10*3/uL MPV 8.9 L (9.4-12.4) fL Immature Gran % (Auto) 1.7 H (0.0-0.4) % Neut % (Auto) 83.8 H (45-73) % Lymph % (Auto) 6.4 L (20-40) % White % (Auto) 7.7 (2-11) % Eos % (Auto) 0.2 (0-4) % Baso % (Auto) 0.2 (0-2) % Lymph # (Auto) 0.8 L (1.2-4.9) X10*3/uL White # (Auto) 0.9 (0.1-1.2) X10*3/uL Eos # (Auto) 0.0 (0.0-0.4) X10*3/uL Baso # (Auto) 0.0 (0.0-0.2) X10*3/uL Abs Immat Gran (auto) 0.21 H (0.00-0.03) X10*3/uL Absolute Neuts (auto) 10.15 H (2.0-8.3) x10*3/uL Absolute Nucleated RBC 0.000 (0.0-0.012) X10*3/uL Nucleated RBC % (auto) 0.0 (0.0-0.2) /100WBC Sodium 137 (135-145) mmol/L Potassium 4.8 (3.3-5.1) mmol/L Chloride 99 (96-108) mmol/L Carbon Dioxide 25 (22-29) mmol/L Anion Gap 18 (12-20) BUN 17 H D (9-16) mg/dL Creatinine 1.10 (0.5-1.4) mg/dL Estim Creat Clear Calc 74.0 Estimated GFR > 60 POC Glucose 207 H (60-115) mg/dL Random Glucose 198 H D (60-115) mg/dL Lactic Acid (0.5-2.0) mmol/L Calcium 9.7 D (8.4-10.2) mg/dL Total Bilirubin 0.9 (0.0-1.0) mg/dL Direct Bilirubin 0.4 (0.0-0.5) mg/dL AST 17 D (5-37) U/L ALT 26 (0-40) U/L Alkaline Phosphatase 104 (39-117) U/L Total Creatine Kinase 48 D (38-174) U/L Troponin I High Sens (<3.5-35.0) ng/L B-Natriuretic Peptide (<100) pg/mL Total Protein 6.3 L (6.5-8.0) g/dL Albumin 4.0 (3.5-5.0) g/dL Lipase 47 (8-78) U/L COVID-19 (TIFFANY) (Negative) COVID-19 Clin Com 01/19/21 01/19/21 01/19/21 Range/Units 15:50 15:50 15:50 WBC (4.8-10.8) X10*3/uL RBC (4.60-5.80) X10*6/uL Hgb (14.0-18.0) g/dl Hct (42.0-52.0) % MCV (80.0-98.0) fL MCH (27.0-33.0) pg MCHC (31.0-36.0) g/dl RDW (11.0-16.0) % Plt Count (160-400) X10*3/uL MPV (9.4-12.4) fL Immature Gran % (Auto) (0.0-0.4) % Neut % (Auto) (45-73) % Lymph % (Auto) (20-40) % White % (Auto) (2-11) % Eos % (Auto) (0-4) % Baso % (Auto) (0-2) % Lymph # (Auto) (1.2-4.9) X10*3/uL White # (Auto) (0.1-1.2) X10*3/uL Eos # (Auto) (0.0-0.4) X10*3/uL Baso # (Auto) (0.0-0.2) X10*3/uL Abs Immat Gran (auto) (0.00-0.03) X10*3/uL Absolute Neuts (auto) (2.0-8.3) x10*3/uL Absolute Nucleated RBC (0.0-0.012) X10*3/uL Nucleated RBC % (auto) (0.0-0.2) /100WBC Sodium (135-145) mmol/L Potassium (3.3-5.1) mmol/L Chloride (96-108) mmol/L Carbon Dioxide (22-29) mmol/L Anion Gap (12-20) BUN (9-16) mg/dL Creatinine (0.5-1.4) mg/dL Estim Creat Clear Calc Estimated GFR POC Glucose (60-115) mg/dL Random Glucose (60-115) mg/dL Lactic Acid 3.2 H* (0.5-2.0) mmol/L Calcium (8.4-10.2) mg/dL Total Bilirubin (0.0-1.0) mg/dL Direct Bilirubin (0.0-0.5) mg/dL AST (5-37) U/L ALT (0-40) U/L Alkaline Phosphatase (39-117) U/L Total Creatine Kinase (38-174) U/L Troponin I High Sens < 3.5 D (<3.5-35.0) ng/L B-Natriuretic Peptide 15 (<100) pg/mL Total Protein (6.5-8.0) g/dL Albumin (3.5-5.0) g/dL Lipase (8-78) U/L COVID-19 (TIFFANY) Negative (Negative) COVID-19 Clin Com See Note Imaging Data Chest x-ray: Radiologist's impression: No acute disease within the chest CT scan - head: Radiologist's impression: No acute intracranial pathology ECG Data Interpretation: Sinus tachycardia at 104 beats per minutes, normal intervals, no ST-T changes. Discharge Plan Discharge Clinical Impression: Syncope Patient Disposition: Admitted As Inpatient Prescriptions: No [facility] prednisolone acetate 1 % drops,suspension 1 drp ophthalmic (eye) BID RF: 0 fluticasone propion-salmeterol [Advair Diskus] 500-50 mcg/dose blister with device 1 puff inhalation BID RF: 0 ketoconazole 2 % shampoo 1 appl topical DAILY RF: 0 cetirizine 10 mg Tablet 10 mg PO BEDTIME RF: 0 clobetasol 0.05 % Ointment 1 appl TOPICAL BID RF: 0 albuterol sulfate 90 mcg/actuation Hfa Aerosol Inhaler 2 puff INHALATION Q6H PRN (Reason: Wheezing) RF: 0 fluticasone propionate 50 mcg/actuation [place],Suspension 2 spray INTRANASAL DAILY RF: 0 prednisone 20 mg tablet 40 mg PO DAILY Qty: 10 RF: 0 lorazepam 0.5 mg tablet 0.5 mg PO BID PRN (Reason: Anxiety) RF: 0 atorvastatin 20 mg tablet 20 mg PO DAILY RF: 0 carvedilol 6.25 mg tablet 6.25 mg PO BID RF: 0 olanzapine 20 mg tablet 20 mg PO BEDTIME RF: 0 omeprazole 20 mg capsule,delayed release(DR/EC) 20 mg PO DAILY RF: 0 tamsulosin 0.4 mg capsule 0.4 mg PO DAILY RF: 0 diltiazem HCl 360 mg capsule,extended release 24 hr 360 mg PO DAILY RF: 0 melatonin 10 mg capsule 10 mg PO BEDTIME RF: 0
[2021-01-19] MEDS: 0.9 % Sodium Chloride 1,000 ML 999 ML IVCONT (15:56)
[2021-01-19 16:00] LABS: MANUAL DIFF FLAG NO
[2021-01-19 16:02] LABS: Basophils Percent Auto 0.2 % (0-2); Eosinophils Percent Auto 0.2 % (0-4); Hematocrit 44.5 % (42.0-52.0); Hemoglobin 14.4 g/dl (14.0-18.0); Imm Gran Abs Auto 0.21 X10*3/uL (0.00-0.03); Imm Gran Pct Auto 1.7 % (0.0-0.4); Lymphocytes Absolute Auto 0.8 X10*3/uL (1.2-4.9); Lymphocytes Percent Auto 6.4 % (20-40); Mean Corpuscular HGB Conc 32.4 g/dl (31.0-36.0); Mean Corpuscular Hemoglobin 28.1 pg (27.0-33.0); Mean Corpuscular Volume 86.7 fL (80.0-98.0); Mean Platelet Volume 8.9 fL (9.4-12.4); Monocytes Absolute Auto 0.9 X10*3/uL (0.1-1.2); Monocytes Percent Auto 7.7 % (2-11); Neutrophils Absolute Auto 10.15 x10*3/uL (2.0-8.3); Neutrophils Percent Auto 83.8 % (45-73); Platelet Count 239 X10*3/uL (160-400); Red Blood Count 5.13 X10*6/uL (4.60-5.80); Red Cell Distribution Width 13.4 % (11.0-16.0); White Blood Count 12.1 X10*3/uL (4.8-10.8)
[2021-01-19 16:17] LABS: COVID-19 Test Negative (Negative)
[2021-01-19 16:18] LABS: Alanine Aminotransferase 26 U/L (0-40); Alkaline Phosphatase 104 U/L (39-117); Anion Gap 18 (12-20); Aspartate Amino Transferase 17 U/L (5-37); Bilirubin Direct 0.4 mg/dL (0.0-0.5); Bilirubin Total 0.9 mg/dL (0.0-1.0); Blood Urea Nitrogen 17 mg/dL (9-16); Calcium 9.7 mg/dL (8.4-10.2); Carbon Dioxide 25 mmol/L (22-29); Chloride 99 mmol/L (96-108); Estimated Glomerular Filt Rate > 60; Glucose Random 198 mg/dL (60-115); Lipase 47 U/L (8-78); Potassium 4.8 mmol/L (3.3-5.1); Sodium 137 mmol/L (135-145); Total Protein 6.3 g/dL (6.5-8.0)
[2021-01-19 16:21] LABS: B Type Natriuretic Peptide 15 pg/mL (<100); Troponin-I High Sensitivity < 3.5 ng/L (<3.5-35.0)
[2021-01-19 16:26] LABS: Lactic Acid 3.2 mmol/L (0.5-2.0)
[2021-01-19 16:40] LABS: Glucose, Whole Blood 207 mg/dL (60-115)
[2021-01-19 17:32] LABS: Appearance Urine CLEAR; Color Urine YELLOW; Glucose Urine UA NEG (NEG); Leukocyte Esterase Urine NEG (NEG); Nitrite Urine NEG (NEG); Specific Gravity - Urine <= 1.005 (1.005-1.025); UACC Culture Trigger NO; Urine Blood 1+ (NEG); Urine Ketones NEG (NEG); Urine Protein NEG (NEG-TRACE)
[2021-01-19 17:46] LABS: RBC Urine 0-2 /HPF (0); Squamous Epithelial Cell Urine TRACE /LPF; WBC Urine 0 /HPF (0-4)
[2021-01-19 17:58] LABS: Reflex Lactate? Lactic Acid Added
--- NOTE | 2021-01-19 18:00 | P.HPHOSP_ITS ---
History of Present Illness Date of Service: 01/19/21 Chief Complaint: syncope 70M presented with 2 episodes of syncope. Patient was recently discharged about 2 weeks prior to presentation for unwitnessed fall complicated by rhabdomyolysis. He had been discharged to skilled nurse facility and had recently come home. On day of presentation patient had 2 witnessed episodes of syncope. Patient reports that he felt dizzy prior, but does not fully remember event. When his state that patient was diaphoretic appearing, does not appear to have been incontinent. patient quickly regained conciousness. In ED noted to meet sirs criteria. leukocytosis, fever 101, tachycardia, lactate 3.2. infectious work up was unremarkable including cxr, UA, skin exam. In ED patient was fully alert and reporting to be back at baseline with no active complaints. Review of Systems Review of Systems: Constitutional: Denies fever, denies Chills Eyes: denies blurry vision ENT: denies sore throat CVS: denies chest pain Respiratory: Denies dyspnea GI: no abdominal pain : denies dysuria MSK: denies neck pain Skin: denies rash Neuro: denies specific motor weakness Psych: denies suicidal ideation Endocrine: denies heat/cold intolerance Hematologic: denies easy bleeding Allergy: denies hives [facility] Medical History (Updated 01/19/21 @ 18:07 by Felipe Vanegas MD) Coronary artery disease Heme + stool HTN (hypertension) Mild intermittent asthma Schizoaffective disorder Tremor Family History Unknown No problems noted. Mother Colon cancer Pertinent family history: . Social History Household Members: None Household Members Other:: lives alone-has patient advocate Housing: Apartment Do you presently have visiting nurse or other home services: No Alcohol intake: never Patient Tobacco Use Status: Never used Tobacco Advance Directives: No Advance Directives Information Provided: No service: No Current occupational status: disabled Meds Allergies Allergy/AdvReac Type Severity Reaction Status Date / Time Penicillins [PENICILLINS] Allergy Unknown EYES GET Verified 11/15/20 13:29 RED Active Medications: Current Medications Atorvastatin Calcium (Atorvastatin Calcium 20 Mg Tablet) 20 mg PO DAILY [facility] Carvedilol (Carvedilol 6.25 Mg Tablet) 6.25 mg PO BID [facility]; Protocol Diltiazem HCl (Diltiazem Hcl Cd 180 Mg Cap.Er.24h) 360 mg PO DAILY [facility]; Protoco l Loratadine (Loratadine 10 Mg Tablet) 10 mg PO BEDTIME [facility] Non-Formulary Medication (Melatonin) 10 mg PO BEDTIME [facility] Olanzapine (Olanzapine 10 Mg Tablet) 20 mg PO BEDTIME [facility] Omeprazole (Omeprazole 20 Mg Capsule.Dr) 20 mg PO DAILY [facility] Tamsulosin HCl (Tamsulosin Hcl 0.4 Mg Capsule) 0.4 mg PO DAILY [facility] Home Medications Medication Instructions Recorded Confirmed Last Taken Type atorvastatin 20 mg tablet 20 mg PO DAILY 10/11/20 01/19/21 Unknown History carvedilol 6.25 mg tablet 6.25 mg PO BID 10/11/20 01/19/21 Unknown History diltiazem HCl 360 mg capsule,24 360 mg PO DAILY 10/11/20 01/19/21 Unknown History hr,extended release lorazepam 0.5 mg tablet 0.5 mg PO BID PRN 10/11/20 12/20/20 Unknown History melatonin 10 mg capsule 10 mg PO BEDTIME 10/11/20 01/19/21 Unknown History olanzapine 20 mg tablet 20 mg PO BEDTIME 10/11/20 01/19/21 Unknown History omeprazole 20 mg capsule,delayed 20 mg PO DAILY 10/11/20 01/19/21 Unknown History release tamsulosin 0.4 mg capsule 0.4 mg PO DAILY 10/11/20 01/19/21 Unknown History albuterol sulfate 90 mcg/actuation 2 puff INHALATION Q6H PRN 12/20/20 12/20/20 Unknown History aerosol inhaler cetirizine 10 mg tablet 10 mg PO BEDTIME 12/20/20 01/19/21 Unknown History clobetasol 0.05 % topical ointment 1 appl TOPICAL BID 12/20/20 12/20/20 Unknown History fluticasone 500 mcg-salmeterol 50 1 puff INHALATION BID 12/20/20 12/20/20 Unknown History mcg/dose blistr powdr for inhalation (Advair Diskus) fluticasone propionate 50 2 spray INTRANASAL DAILY 12/20/20 12/20/20 Unknown History mcg/actuation nasal spray,suspension ketoconazole 2 % shampoo 1 appl TOPICAL DAILY 12/20/20 12/20/20 Unknown History prednisolone acetate 1 % eye 1 drp OPHTHALMIC (EYE) BID 12/20/20 12/20/20 Unk nown History drops,suspension Physical Exam Vital Signs and Narrative: Vital Signs: Last Vital Signs Temp 101 F H 01/19/21 15:40 Pulse 108 H 01/19/21 15:40 Resp 18 01/19/21 15:40 BP 125/82 01/19/21 15:40 Pulse Ox 89 L 01/19/21 15:40 Body Mass Index 31.7 General: no acute distress HEENT: atraumatic Neck: normal to visual inspection CVS: S1, S2, RRR Resp: CTA bilateral Chest: non tender GI: soft, non tender, non distended : no CVA tenderness Skin: no rashes Extremities: no edema Neuro: Oriented X3, grossly intact, resting tremor (similar to previous encounters) Psych: cooperative Results Labs CBC and Chem 7: 01/19/21 15:50 01/19/21 15:50 Labs: Laboratory Results - last 24 hr 01/19/21 01/19/21 01/19/21 15:42 15:50 15:50 MCV 86.7 MCH 28.1 MCHC 32.4 RDW 13.4 Plt Count 239 MPV 8.9 L Immature Gran % (Auto) 1.7 H Neut % (Auto) 83.8 H Lymph % (Auto) 6.4 L [place] % (Auto) 7.7 Eos % (Auto) 0.2 Baso % (Auto) 0.2 Lymph # (Auto) 0.8 L [place] # (Auto) 0.9 Eos # (Auto) 0.0 Baso # (Auto) 0.0 Abs Immat Gran (auto) 0.21 H Absolute Neuts (auto) 10.15 H Absolute Nucleated RBC 0.000 Nucleated RBC % (auto) 0.0 Anion Gap 18 Estim Creat Clear Calc 74.0 Estimated GFR > 60 POC Glucose 207 H Random Glucose 198 H D Lactic Acid Calcium 9.7 D Total Bilirubin 0.9 Direct Bilirubin 0.4 AST 17 D ALT 26 Alkaline Phosphatase 104 Total Creatine Kinase 48 D Troponin I High Sens B-Natriuretic Peptide Total Protein 6.3 L Albumin 4.0 Lipase 47 Urine Color Urine Appearance Urine pH Ur Specific [place] Urine Protein Urine Glucose (UA) Urine Ketones Urine Blood Urine Nitrite Ur Leukocyte Esterase Urine RBC Urine WBC Ur Squamous Epith Cells Urine Bacteria COVID-19 ([facility]FFANY) COVID-19 Clin Com 01/19/21 01/19/21 01/19/21 15:50 15:50 15:50 MCV MCH MCHC RDW Plt Count MPV Immature Gran % (Auto) Neut % (Auto) Lymph % (Auto) [place] % (Auto) Eos % (Auto) Baso % (Auto) Lymph # (Auto) [place] # (Auto) Eos # (Auto) Baso # (Auto) Abs Immat Gran (auto) Absolute Neuts (auto) Absolute Nucleated RBC Nucleated RBC % (auto) Anion Gap Estim Creat Clear Calc Estimated GFR POC Glucose Random Glucose Lactic Acid 3.2 H* Calcium Total Bilirubin Direct Bilirubin AST ALT Alkaline Phosphatase Total Creatine Kinase Troponin I High Sens < 3.5 D B-Natriuretic Peptide 15 Total Protein Albumin Lipase Urine Color Urine Appearance Urine pH Ur Specific [place] Urine Protein Urine Glucose (UA) Urine Ketones Urine Blood Urine Nitrite Ur Leukocyte Esterase Urine RBC Urine WBC Ur Squamous Epith Cells Urine Bacteria COVID-19 (TIFFANY) Negative COVID-19 Clin Com See Note 01/19/21 17:26 MCV MCH MCHC RDW Plt Count MPV Immature Gran % (Auto) Neut % (Auto) Lymph % (Auto) [place] % (Auto) Eos % (Auto) Baso % (Auto) Lymph # (Auto) [place] # (Auto) Eos # (Auto) Baso # (Auto) Abs Immat Gran (auto) Absolute Neuts (auto) Absolute Nucleated RBC Nucleated RBC % (auto) Anion Gap Estim Creat Clear Calc Estimated GFR POC Glucose Random Glucose Lactic Acid Calcium Total Bilirubin Direct Bilirubin AST ALT Alkaline Phosphatase Total Creatine Kinase Troponin I High Sens B-Natriuretic Peptide Total Protein Albumin Lipase Urine Color YELLOW Urine Appearance CLEAR Urine pH 6.0 Ur Specific [place] <= 1.005 Urine Protein NEG Urine Glucose (UA) NEG Urine Ketones NEG Urine Blood 1+ H Urine Nitrite NEG Ur Leukocyte Esterase NEG Urine RBC 0-2 Urine WBC 0 Ur Squamous Epith Cells TRACE Urine Bacteria NONE COVID-19 (TIFFANY) COVID-19 Clin Com Imaging Radiologist's Impressions: Impressions Chest X-Ray 01/19/21 15:42 IMPRESSION: No acute disease within the chest. Redemonstration of large hiatal hernia. Head CT 01/19/21 15:44 IMPRESSION: No acute intracranial pathology. Assessment and Plan (1) Syncope: Qualifiers: Syncope type: unspecified Qualified Code(s): R55 - Syncope and collapse Status: Acute (2) SIRS (systemic inflammatory response syndrome): Status: Acute (3) Mild intermittent asthma: Status: Acute (4) Schizoaffective disorder: Status: Acute (5) HTN (hypertension): Status: Acute 70M presented with multiple episodes of syncope and found to have SIRS SIRS, lactic acidosis most likely metabolic cause, no evidence of infection/sepsis will hold off on antibiotics monitor, follow up blood culture recurrent syncope differential includes seizure, cardiac arrythmia, vasovagal, orthostatic hypotenstion monitor on tele, echo check EEG, neuro eval check orthostatics hld statin HTN coreg, cardizem mild intermittent asthma duonebs prn currently stable, no wheeze schizoaffective olanzapine bph flomax dvt prophylaxis - lovenox full code Quality Stroke Does the patient have a stroke diagnosis?: No VTE Prior VTE?: No VTE Risk Level:: Medical - moderate - high VTE Device Contraindication: Treatment Not Indicated VTE Drug Contraindication: N/A - Med Ordered
[2021-01-19 18:26] VITALS: BP 119/72; PULSE 102; RESP 20; TEMP 36.9; O2SAT 92
[2021-01-19 18:37] VITALS: TEMP 37.6
[2021-01-19] MEDS: Enoxaparin Sodium 40 MG/0.4 ML SYRINGE SUBCUT (19:05)
[2021-01-19] MEDS: Melatonin 3 MG TABLET 9 MG PO (20:47)
[2021-01-19] MEDS: Loratadine 10 MG TABLET PO (20:48)
[2021-01-19] MEDS: carvediloL 6.25 MG TABLET PO (20:48)
[2021-01-20] VITALS (13 sets, daily range): BP systolic 99–122; BP diastolic 62–77; PULSE 73–111; RESP 16–20; TEMP 36.6–37.1; O2SAT 93–97
[2021-01-20 06:50] LABS: Hemoglobin 13.8 g/dl (14.0-18.0); Mean Corpuscular HGB Conc 31.4 g/dl (31.0-36.0); Mean Corpuscular Hemoglobin 27.7 pg (27.0-33.0); Mean Corpuscular Volume 88.4 fL (80.0-98.0); Platelet Count 198 X10*3/uL (160-400); Red Blood Count 4.98 X10*6/uL (4.60-5.80); Red Cell Distribution Width 13.6 % (11.0-16.0); White Blood Count 9.6 X10*3/uL (4.8-10.8)
[2021-01-20 07:18] LABS: Anion Gap 12 (12-20); Blood Urea Nitrogen 17 mg/dL (9-16); Calcium 8.8 mg/dL (8.4-10.2); Carbon Dioxide 27 mmol/L (22-29); Chloride 107 mmol/L (96-108); Creatinine Clr Calc Pharmacy 87.5; Estimated Glomerular Filt Rate > 60; Glucose Fasting 109 mg/dL (60-99); Magnesium 1.9 mg/dL (1.6-2.6); Potassium 3.9 mmol/L (3.3-5.1); Sodium 142 mmol/L (135-145)
--- NOTE | 2021-01-20 09:53 | HO.PM.IMPN ---
Subjective Subjective Date of Service: 01/20/21 Interval History: cc: syncope interval history: feels back to baseline Cardiovascular Cardiovascular: Reports no additional cardiovascular complaints Respiratory Respiratory: Reports no additional respiratory complaints Physical Exam Vital Signs: Vital Signs: Last Vital Signs Temp 97.8 F 01/20/21 00:00 Pulse 109 H 01/20/21 06:21 Resp 16 01/20/21 04:00 BP 110/77 01/20/21 06:21 Pulse Ox 97 01/20/21 04:00 Body Mass Index 31.7 General: AO X 3, no acute distress Resp: CTA bilateral, no accessory muscles used CVS: S1,S2,RRR GI: soft, non tender, non distended Neuro: motor grossly intact, alert Psych: appropriate affect, appropriate insight Objective Data Active Medications Albuterol/Ipratropium (Albuterol/Iprat 2.5/0.5mg 3 Ml Ampul.Neb) 3 ml INHALE Q4H PRN PRN Reason: sob Atorvastatin Calcium (Atorvastatin Calcium 20 Mg Tablet) 20 mg PO DAILY [facility] Carvedilol (Carvedilol 6.25 Mg Tablet) 6.25 mg PO BID [facility]; Protocol Last Admin: 01/19/21 20:48 Dose: 6.25 mg Documented by: BREANA Diltiazem HCl (Diltiazem Hcl Cd 180 Mg Cap.Er.24h) 360 mg PO DAILY [facility]; Protocol Enoxaparin Sodium (Enoxaparin Sodium 40 Mg/0.4 Ml Syringe) 40 mg SUBCUT Q24H [facility] Last Admin: 01/19/21 19:05 Dose: 40 mg Documented by: BREANA Loratadine (Loratadine 10 Mg Tablet) 10 mg PO BEDTIME [facility] Last Admin: 01/19/21 20:48 Dose: 10 mg Documented by: BREANA Melatonin (Melatonin 3 Mg Tablet) 9 mg PO BEDTIME [facility] Last Admin: 01/19/21 20:47 Dose: 9 mg Documented by: BREANA Olanzapine (Olanzapine 10 Mg Tablet) 20 mg PO BEDTIME [facility] Last Admin: 01/19/21 20:50 Dose: Not Given Documented by: BREANA Non-Admin Reason: Previously Administered Omeprazole (Omeprazole 20 Mg Capsule.Dr) 20 mg PO DAILY [facility] Sodium Chloride (0.9 % Sodium Chloride Flush 3 Ml Syringe) 3 ml IVFLUSH QSHIFT [facility] Last Admin: 01/20/21 00:34 Dose: Not Given Documented by: NINO Non-Admin Reason: Med Not Available Tamsulosin HCl (Tamsulosin Hcl 0.4 Mg Capsule) 0.4 mg PO DAILY [facility] Labs CBC & Chem 7: 01/20/21 06:37 01/20/21 06:37 Labs: Laboratory Results - last 24 hr 01/19/21 01/19/21 01/19/21 15:42 15:50 15:50 MCV 86.7 MCH 28.1 MCHC 32.4 RDW 13.4 Plt Count 239 MPV 8.9 L Immature Gran % (Auto) 1.7 H Neut % (Auto) 83.8 H Lymph % (Auto) 6.4 L [place] % (Auto) 7.7 Eos % (Auto) 0.2 Baso % (Auto) 0.2 Lymph # (Auto) 0.8 L [place] # (Auto) 0.9 Eos # (Auto) 0.0 Baso # (Auto) 0.0 Abs Immat Gran (auto) 0.21 H Absolute Neuts (auto) 10.15 H Absolute Nucleated RBC 0.000 Nucleated RBC % (auto) 0.0 Anion Gap 18 Estim Creat Clear Calc 74.0 Estimated GFR > 60 POC Glucose 207 H Random Glucose 198 H D Fasting Glucose Lactic Acid Lactic Acid Fup @ 2Hr Calcium 9.7 D Magnesium Total Bilirubin 0.9 Direct Bilirubin 0.4 AST 17 D ALT 26 Alkaline Phosphatase 104 Total Creatine Kinase 48 D Troponin I High Sens B-Natriuretic Peptide Total Protein 6.3 L Albumin 4.0 Lipase 47 Urine Color Urine Appearance Urine pH Ur Specific [place] Urine Protein Urine Glucose (UA) Urine Ketones Urine Blood Urine Nitrite Ur Leukocyte Esterase Urine RBC Urine WBC Ur Squamous Epith Cells Urine Bacteria COVID-19 (TIFFANY) COVID-19 Clin Com 01/19/21 01/19/21 01/19/21 15:50 15:50 15:50 MCV MCH MCHC RDW Plt Count MPV Immature Gran % (Auto) Neut % (Auto) Lymph % (Auto) [place] % (Auto) Eos % (Auto) Baso % (Auto) Lymph # (Auto) [place] # (Auto) Eos # (Auto) Baso # (Auto) Abs Immat Gran (auto) Absolute Neuts (auto) Absolute Nucleated RBC Nucleated RBC % (auto) Anion Gap Estim Creat Clear Calc Estimated GFR POC Glucose Random Glucose Fasting Glucose Lactic Acid 3.2 H* Lactic Acid Fup @ 2Hr Calcium Magnesium Total Bilirubin Direct Bilirubin AST ALT Alkaline Phosphatase Total Creatine Kinase Troponin I High Sens < 3.5 D B-Natriuretic Peptide 15 Total Protein Albumin Lipase Urine Color Urine Appearance Urine pH Ur Specific [place] Urine Protein Urine Glucose (UA) Urine Ketones Urine Blood Urine Nitrite Ur Leukocyte Esterase Urine RBC Urine WBC Ur Squamous Epith Cells Urine Bacteria COVID-19 (TIFFANY) Negative COVID-19 Clin Com See Note 01/19/21 01/19/21 01/20/21 17:26 18:32 06:37 MCV 88.4 MCH 27.7 MCHC 31.4 RDW 13.6 Plt Count 198 MPV 9.0 L Immature Gran % (Auto) Neut % (Auto) Lymph % (Auto) [place] % (Auto) Eos % (Auto) Baso % (Auto) Lymph # (Auto) [place] # (Auto) Eos # (Auto) Baso # (Auto) Abs Immat Gran (auto) Absolute Neuts (auto) Absolute Nucleated RBC 0.000 Nucleated RBC % (auto) 0.0 Anion Gap Estim Creat Clear Calc Estimated GFR POC Glucose Random Glucose Fasting Glucose Lactic Acid Lactic Acid Fup @ 2Hr 1.0 Calcium Magnesium Total Bilirubin Direct Bilirubin AST ALT Alkaline Phosphatase Total Creatine Kinase Troponin I High Sens B-Natriuretic Peptide Total Protein Albumin Lipase Urine Color YELLOW Urine Appearance CLEAR Urine pH 6.0 Ur Specific [place] <= 1.005 Urine Protein NEG Urine Glucose (UA) NEG Urine Ketones NEG Urine Blood 1+ H Urine Nitrite NEG Ur Leukocyte Esterase NEG Urine RBC 0-2 Urine WBC 0 Ur Squamous Epith Cells TRACE Urine Bacteria NONE COVID-19 (TIFFANY) COVID-19 Clin Com 01/20/21 06:37 MCV MCH MCHC RDW Plt Count MPV Immature Gran % (Auto) Neut % (Auto) Lymph % (Auto) [place] % (Auto) Eos % (Auto) Baso % (Auto) Lymph # (Auto) [place] # (Auto) Eos # (Auto) Baso # (Auto) Abs Immat Gran (auto) Absolute Neuts (auto) Absolute Nucleated RBC Nucleated RBC % (auto) Anion Gap 12 Estim Creat Clear Calc 87.5 Estimated GFR > 60 POC Glucose Random Glucose Fasting Glucose 109 H Lactic Acid Lactic Acid Fup @ 2Hr Calcium 8.8 D Magnesium 1.9 Total Bilirubin Direct Bilirubin AST ALT Alkaline Phosphatase Total Creatine Kinase Troponin I High Sens B-Natriuretic Peptide Total Protein Albumin Lipase Urine Color Urine Appearance Urine pH Ur Specific [place] Urine Protein Urine Glucose (UA) Urine Ketones Urine Blood Urine Nitrite Ur Leukocyte Esterase Urine RBC Urine WBC Ur Squamous Epith Cells Urine Bacteria COVID-19 (TIFFANY) COVID-19 Clin Com Microbiology Microbiology Results: Microbiology 01/19/21 15:55 Blood Culture - Preliminary Blood - Venous Assessment and Plan (1) SIRS (systemic inflammatory response syndrome): Status: Acute (2) Syncope: Status: Acute Assessment and Plan: 70M presented with multiple episodes of syncope and found to have SIRS SIRS, lactic acidosis most likely metabolic cause, no evidence of infection/sepsis cotninue to hold off on antibiotics monitor, follow up blood culture - negative so far recurrent syncope differential includes seizure, cardiac arrythmia, vasovagal, orthostatic hypotenstion monitor on tele - no events so far, echo check EEG, neuro eval check orthostatics hld statin HTN coreg, cardizem mild intermittent asthma duonebs prn currently stable, no wheeze schizoaffective olanzapine bph flomax dvt prophylaxis - lovenox full code Quality Stroke Does the patient have a stroke diagnosis?: No VTE Prior VTE?: No VTE Risk Level:: Medical - moderate - high VTE Device Contraindication: Treatment Not Indicated VTE Drug Contraindication: N/A - Med Ordered
[2021-01-20] MEDS: dilTIAZem HCL CD 180 MG CAP.ER.24H 360 MG PO (10:25)
[2021-01-20] MEDS: carvediloL 6.25 MG TABLET PO (10:25)
[2021-01-20] MEDS: Omeprazole 20 MG CAPSULE.DR PO (10:25)
[2021-01-20] MEDS: OLANZapine 10 MG TABLET 20 MG PO (10:26)
[2021-01-20] MEDS: Tamsulosin HCL 0.4 MG CAPSULE PO (10:26)
[2021-01-20] MEDS: Atorvastatin Calcium 20 MG TABLET PO (10:26)
--- NOTE | 2021-01-20 10:42 | PC.NURSE ---
CONTUNUES TO WAIT ON BED ASSIGNMENT, PT CHANGED REPOSITIONED NEEDS BEING MET
--- NOTE | 2021-01-20 14:15 | PC.NURSE ---
pt resting comfortably, he ate lunch. awaiting bed assignment.
--- NOTE | 2021-01-20 15:50 | MHC.CM.PN ---
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 DC PLAN IS HOME WITH RESUMPTION OF CHD SUPPORT CHD LIKELY TO TRANSPORT
[2021-01-20] MEDS: 0.9 % Sodium Chloride Flush 3 ML SYRINGE IVFLUSH (16:38)
--- NOTE | 2021-01-20 17:08 | PC.NURSE ---
pt brother Yfn here to visit. concern for pt as this keeps happening . brother phone number
[2021-01-20] MEDS: Enoxaparin Sodium 40 MG/0.4 ML SYRINGE SUBCUT (18:48)
[2021-01-20] MEDS: Loratadine 10 MG TABLET PO (21:29)
[2021-01-20] MEDS: Melatonin 3 MG TABLET 9 MG PO (21:31)
[2021-01-21] VITALS (12 sets, daily range): BP systolic 93–149; BP diastolic 45–76; PULSE 77–106; RESP 18–23; TEMP 36–37.1; O2SAT 93–98; BMI 31.6
--- NOTE | 2021-01-21 00:15 | PC.NURSE ---
Report given to M/S RN.
[2021-01-21] MEDS: Atorvastatin Calcium 20 MG TABLET PO (08:37)
[2021-01-21] MEDS: carvediloL 6.25 MG TABLET PO ×2 (08:37→19:26)
[2021-01-21] MEDS: Omeprazole 20 MG CAPSULE.DR PO (08:37)
[2021-01-21] MEDS: Tamsulosin HCL 0.4 MG CAPSULE PO (08:37)
[2021-01-21] MEDS: dilTIAZem HCL CD 180 MG CAP.ER.24H 360 MG PO (08:37)
[2021-01-21] MEDS: 0.9 % Sodium Chloride Flush 3 ML SYRINGE IVFLUSH ×3 (08:38→19:26)
--- NOTE | 2021-01-21 09:27 | P.PNIM_ITS ---
Subjective Subjective Date of Service: 01/21/21 Interval History: cc: syncope interval history: feels back to baseline Cardiovascular Cardiovascular: Reports no additional cardiovascular complaints Respiratory Respiratory: Reports no additional respiratory complaints Physical Exam Vital Signs: Vital Signs: Last Vital Signs Temp 98.4 F 01/21/21 08:00 Pulse 92 01/21/21 08:00 Resp 18 01/21/21 08:00 BP 120/67 01/21/21 08:00 Pulse Ox 95 01/21/21 08:00 Body Mass Index 31.6 General: AO X 3, no acute distress Resp:? CTA bilateral, no accessory muscles used CVS: S1,S2,RRR GI: soft, non tender, non distended Neuro:? motor grossly intact, alert Psych: appropriate affect, appropriate insight? Objective Data Active Medications Albuterol/Ipratropium (Albuterol/Iprat 2.5/0.5mg 3 Ml Ampul.Neb) 3 ml INHALE Q4H PRN PRN Reason: sob Atorvastatin Calcium (Atorvastatin Calcium 20 Mg Tablet) 20 mg PO DAILY [facility] Last Admin: 01/21/21 08:37 Dose: 20 mg Documented by: NIALL Carvedilol (Carvedilol 6.25 Mg Tablet) 6.25 mg PO BID [facility]; Protocol Last Admin: 01/21/21 08:37 Dose: 6.25 mg Documented by: NIALL Diltiazem HCl (Diltiazem Hcl Cd 180 Mg Cap.Er.24h) 360 mg PO DAILY [facility]; Protocol Last Admin: 01/21/21 08:37 Dose: 360 mg Documented by: NIALL Enoxaparin Sodium (Enoxaparin Sodium 40 Mg/0.4 Ml Syringe) 40 mg SUBCUT Q24H [facility] Last Admin: 01/20/21 18:48 Dose: 40 mg Documented by: SHAVON Loratadine (Loratadine 10 Mg Tablet) 10 mg PO BEDTIME [facility] Last Admin: 01/20/21 21:29 Dose: 10 mg Documented by: SHAVON Melatonin (Melatonin 3 Mg Tablet) 9 mg PO BEDTIME [facility] Last Admin: 01/20/21 21:31 Dose: 9 mg Documented by: SHAVON Olanzapine (Olanzapine 10 Mg Tablet) 20 mg PO BEDTIME [facility] Last Admin: 01/20/21 10:26 Dose: 20 mg Documented by: HO.HUENNF Omeprazole (Omeprazole 20 Mg Capsule.) 20 mg PO DAILY [facility] Last Admin: 01/21/21 08:37 Dose: 20 mg Documented by: NIALL Sodium Chloride (0.9 % Sodium Chloride Flush 3 Ml Syringe) 3 ml IVFLUSH QSHIFT [facility] Last Admin: 01/21/21 08:38 Dose: 3 ml Documented by: NIALL Tamsulosin HCl (Tamsulosin Hcl 0.4 Mg Capsule) 0.4 mg PO DAILY [facility] Last Admin: 01/21/21 08:37 Dose: 0.4 mg Documented by: NIALL Labs CBC & Chem 7: 01/20/21 06:37 01/20/21 06:37 Microbiology Microbiology Results: Microbiology 01/19/21 15:55 Blood Culture - Preliminary Blood - Venous No growth after 48 hours. 01/19/21 15:51 Blood Culture - Preliminary Blood - Venous No growth after 24 hours. Assessment and Plan (1) SIRS (systemic inflammatory response syndrome): Status: Acute (2) Syncope: Status: Acute Assessment and Plan: 70M presented with multiple episodes of syncope and found to have SIRS SIRS, lactic acidosis most likely metabolic cause, no evidence of infection/sepsis continue to hold off on antibiotics as afebrile now and cultures negative recurrent syncope differential includes seizure, cardiac arrythmia, vasovagal, orthostatic hypotenstion monitor on tele - no events so far, echo check EEG, neuro eval check orthostatics chronic hypoxic respiratory failure likely due to asthma, obesity o2 for sat 90-94% hld statin HTN coreg, cardizem mild intermittent asthma duonebs prn currently stable, no wheeze schizoaffective olanzapine bph flomax dvt prophylaxis - lovenox full code Quality Stroke Does the patient have a stroke diagnosis?: No VTE Prior VTE?: No VTE Risk Level:: Medical - moderate - high VTE Device Contraindication: Treatment Not Indicated VTE Drug Contraindication: N/A - Med Ordered
--- NOTE | 2021-01-21 10:00 | CA_ITS ---
Transthoracic Echocardiogram Patient (Last, First, Middle): Timothy Muñiz, Gender: Male Date of : 1950 Age: 70 Procedure Date: 01/21/2021 Procedure Type: Transthoracic Echocardiogram Location: S3E Height: 175.26 cm Weight: 96.62 kg BSA: 2.12 m2 Heart Rate: bpm BP: 101 / 60 mmHg [employer] Supervisor: CONCEPCIÓN Burgos MD: Felipe Vanegas MD [employer]: Silver Cain MD Symptoms: syncope Study Quality: Fair Conclusions: - 1. Normal LV systolic function with grade 1 diastolic dysfunction with possible akinesis of the basal inferior segment 2. Normal cardiac valvular Doppler next 3. Normal RV systolic pressure 4. No pericardial effusion Findings Left Ventricle Normal left ventricular size, thickness, and systolic function. The visually estimated ejection fraction is between 55-60%. Spectral Doppler is indicative of an impaired relaxation filling pattern. E/E prime ratio is <8, consistent with normal filling pressures. Evidence suggests grade I (mild) diastolic dysfunction. Wall Motion Rest Echo Findings The basal inferior segment is akinetic. All other scored wall segments showed normal motion. Right Ventricle Normal right ventricular cavity size and systolic function. Atria Both atria are normal in size. There is lipomatous hypertrophy of the interatrial septum. There is no evidence of interatrial shunt. Aortic Valve There is mild calcification of the aortic valve. There is mild thickening of the aortic valve. There is no aortic valve stenosis. There is no aortic valve regurgitation. Mitral Valve Likely normal mitral valve structure and function. There is trace mitral valve regurgitation. There is no mitral valve stenosis. Pulmonic Valve The pulmonic valve was not well visualized. Tricuspid Valve Likely normal tricuspid valve structure and function. There is trace tricuspid valve regurgitation. The right ventricular systolic pressure is normal. The right ventricular systolic pressure is 28 mmHg. Normal right atrial pressure. There is no evidence of pulmonary hypertension. Great Vessels The pulmonary artery was not well visualized. There is mild dilatation of the ascending aorta measuring 3.90 cm. Venous The inferior vena cava is normal in size and collapses greater than 50% with inspiration. Pericardium/Pleural There is no evidence of pericardial effusion. Prior Study Comparison No prior study available for comparison. Measurements 2D Linear Measurements IVSd: 1.14 0.6-0.9/0.6-1.0 cm LVIDd: 2.84 3.9-5.3/4.2-5.9 cm LVIDd Index: 1.34 2.4-3.2/2.2-3.1 cm/m2 LVIDs: 2.11 2.0-3.6 cm LVPWd: 0.92 0.7-1.1 cm Ao Root: 3.70 2.1-3.5 cm LA Diam: 2.00 2.7-3.8/3.0-4.0 cm LAIDs Index: 0.94 1.5-2.3 cm/m2 LV Mass: 98.38 67-162/88-224 g LV Mass Index: 46.41 43-95/49-115 g/m2 LVOT Diam: 2.10 3.0+(-)1.3 cm 2D Systolic Function EF 4C: 50.90 >55% EF 2C: 62.60 >55% EF BiP: 57.90 >55% Mitral Valve MV Pk E: 0.51 MV PK A: 0.86 MV Decel Time: 223.00 E/A: 0.60 E'Lateral: 9.14 E'Medial: 8.27 E/E' Med: 6.10 E/E' Lat: 5.50 PHT: 65.00 MVA PHT: 3.38 Decel Hemphill: 2.27 Aortic Valve AoV Pk Jose: 1.58 AoV Mn Jose: 1.03 AoV VTI: 0.24 AoV Pk Grad: 10.00 Aov Mn Grad: 5.00 YOMI Cont.VTI: 2.20 LVOT LVOT Pk Jose: 0.98 LVOT Mn Jose: 0.68 LVOT VTI: 0.15 LVOT Pk Grad: 4.00 LVOT Mn Grad: 2.00 LVOT Diam: 2.10 LVOT Area: 3.46 Diastolic Function MV Pk E: 0.51 MV Pk A: 0.86 E/A: 0.60 E'Medial: 8.27 E/E' Med: 6.10 E' Laterial: 9.14 E/E' Lat: 5.50 Right Ventricle TAPSE (mm): 1.67 TVS' Jose: 11.10 Tricuspid Valve TR Pk Jose: 2.48 TR Pk Grad: 25.00 RA Press: 3.00 RVSP: 28.00 Great Vessels Aorta Ao Root-2D: 3.70 2.0-3.7 cm Ao Asc: 3.90 2.1-3.4 cm Ao Arch: 2.40 Updated in Other Vendor System with Status of Final Silver Cain MD electronically signed on 01/21/2021 4:03:55 PM with status of Final
--- NOTE | 2021-01-21 12:29 | PM.NEUROCN ---
History of Present Illness Data of Consult Service Date: 01/21/21 Primary Care Provider: Allison Perez MD HPI Reason for consult: Syncope 70 years old man who I was asked to see for syncopal episode. Apparently he was admitted in hospital recently with falling passing out and rhabdomyolysis. He was brought back was somewhat similar situation but also was diagnosed with UTI. He said that he had never had a seizure but was feeling dizzy and passing out. There was no cardiac symptoms. Review of Systems Review of Systems: No recent cold or flu-like symptoms. [facility] Past Medical History Medical History Coronary artery disease Heme + stool HTN (hypertension) Mild intermittent asthma Schizoaffective disorder Tremor Family History Family History Unknown No problems noted. Mother Colon cancer Social History Social History Household Members: None Household Members Other:: lives alone-has patient advocate Housing: Apartment Do you presently have visiting nurse or other home services: Yes Alcohol intake: never Patient Tobacco Use Status: Former Tobacco user Use of substances other than those prescribed or required for medical reasons: No Have you been hit, kicked, punched, or otherwise hurt by someone within the past year? If so, by whom?: No Do you feel safe in your current relationship?: No Is there a partner from a previous relationship who is making you feel unsafe now?: No Are you made to feel afraid or neglected: No Advance Directives: No Advance Directives Information Provided: No Do you have thoughts of harming others: None Do you have a plan to hurt others: No Plan Recently lost weight without trying: Yes How much weight loss: 2-13 pounds Eating poorly because of decreased appetite: No Nutrition screen score: 3 Nutrition Risks: No Nutritional Risk Poor oral hygiene: No service: No Current occupational status: disabled Meds Allergies Allergy/AdvReac Type Severity Reaction Status Date / Time Penicillins [PENICILLINS] Allergy Unknown EYES GET Verified 11/15/20 13:29 RED Active Medications: Current Medications Albuterol/Ipratropium (Albuterol/Iprat 2.5/0.5mg 3 Ml Ampul.Neb) 3 ml INHALE Q4H PRN PRN Reason: sob Atorvastatin Calcium (Atorvastatin Calcium 20 Mg Tablet) 20 mg PO DAILY [facility] Last Admin: 01/21/21 08:37 Dose: 20 mg Documented by: Carvedilol (Carvedilol 6.25 Mg Tablet) 6.25 mg PO BID [facility]; Protocol Last Admin: 01/21/21 08:37 Dose: 6.25 mg Documented by: Diltiazem HCl (Diltiazem Hcl Cd 180 Mg Cap.Er.24h) 360 mg PO DAILY [facility]; Protocol Last Admin: 01/21/21 08:37 Dose: 360 mg Documented by: Enoxaparin Sodium (Enoxaparin Sodium 40 Mg/0.4 Ml Syringe) 40 mg SUBCUT Q24H [facility] Last Admin: 01/20/21 18:48 Dose: 40 mg Documented by: Loratadine (Loratadine 10 Mg Tablet) 10 mg PO BEDTIME [facility] Last Admin: 01/20/21 21:29 Dose: 10 mg Documented by: Melatonin (Melatonin 3 Mg Tablet) 9 mg PO BEDTIME [facility] Last Admin: 01/20/21 21:31 Dose: 9 mg Documented by: Olanzapine (Olanzapine 10 Mg Tablet) 20 mg PO BEDTIME [facility] Last Admin: 01/20/21 10:26 Dose: 20 mg Documented by: Omeprazole (Omeprazole 20 Mg Capsule.) 20 mg PO DAILY [facility] Last Admin: 01/21/21 08:37 Dose: 20 mg Documented by: Sodium Chloride (0.9 % Sodium Chloride Flush 3 Ml Syringe) 3 ml IVFLUSH QSHIFT [facility] Last Admin: 01/21/21 08:38 Dose: 3 ml Documented by: Tamsulosin HCl (Tamsulosin Hcl 0.4 Mg Capsule) 0.4 mg PO DAILY [facility] Last Admin: 01/21/21 08:37 Dose: 0.4 mg Documented by: Home Medications Medication Instructions Recorded Confirmed Last Taken Type atorvastatin 20 mg tablet 20 mg PO DAILY 10/11/20 01/19/21 Unknown History carvedilol 6.25 mg tablet 6.25 mg PO BID 10/11/20 01/19/21 Unknown History diltiazem HCl 360 mg capsule,24 360 mg PO DAILY 10/11/20 01/19/21 Unknown History hr,extended release lorazepam 0.5 mg tablet 0.5 mg PO BID PRN 10/11/20 12/20/20 Unknown History melatonin 10 mg capsule 10 mg PO BEDTIME 10/11/20 01/19/21 Unknown History olanzapine 20 mg tablet 20 mg PO BEDTIME 10/11/20 01/19/21 Unknown History omeprazole 20 mg capsule,delayed 20 mg PO DAILY 10/11/20 01/19/21 Unknown History release tamsulosin 0.4 mg capsule 0.4 mg PO DAILY 10/11/20 01/19/21 Unknown History albuterol sulfate 90 mcg/actuation 2 puff INHALATION Q6H PRN 12/20/20 12/20/20 Unknown History aerosol inhaler cetirizine 10 mg tablet 10 mg PO BEDTIME 12/20/20 01/19/21 Unknown History clobetasol 0.05 % topical ointment 1 appl TOPICAL BID 12/20/20 12/20/20 Unknown History fluticasone 500 mcg-salmeterol 50 1 puff INHALATION BID 12/20/20 12/20/20 Unknown History mcg/dose blistr powdr for inhalation (Advair Diskus) fluticasone propionate 50 2 spray INTRANASAL DAILY 12/20/20 12/20/20 Unknown History mcg/actuation nasal spray,suspension ketoconazole 2 % shampoo 1 appl TOPICAL DAILY 12/20/20 12/20/20 Unknown History prednisolone acetate 1 % eye 1 drp OPHTHALMIC (EYE) BID 12/20/20 12/20/20 Unknown History drops,suspension Physical Exam Vital Signs: Vital Signs: Last Vital Signs Temp 98.8 F 01/21/21 11:40 Pulse 85 01/21/21 11:40 Resp 18 01/21/21 11:40 BP 111/64 01/21/21 11:40 Pulse Ox 95 01/21/21 11:40 Body Mass Index 31.6 Neuro: Other: Alert and awake with normal spontaneity of speech fluency comprehension and anxious affect. There was mild to moderate head and hand tremor. Pupils were equal and reactive to light. Extraocular muscles were intact. Visual agrawal are full. Face was symmetrical. Tongue was midline. There was no focal weakness plantars were flexors. Deep tendon reflexes were trace to absent Results Labs CBC & Chem 7: 01/20/21 06:37 01/20/21 06:37 Labs: Head CT revealed mild bilateral frontoparietal atrophy. Microbiology Microbiology Results: Microbiology 01/19/21 15:55 Blood - Venous Blood Culture - Preliminary No growth after 48 hours. 01/19/21 15:51 Blood - Venous Blood Culture - Preliminary No growth after 24 hours. Assessment and Plan (1) Syncope: Qualifiers: Syncope type: unspecified Qualified Code(s): R55 - Syncope and collapse Status: Acute 70 years old man with underlying history of she has affective disorder with couple of syncopal episodes that probably would not neurological in origin. His overall examination was suggestive of underlying psychiatric disease and possible complications of previous psychotropic medications. At this time I would recommend a routine EEG but otherwise no antiepileptic medicines. Procedures Date of Service Date of Service: 01/21/21
--- NOTE | 2021-01-21 16:00 | MHC.CM.PN ---
CM RECEIVED A CALL FROM PT'S CHD NURSE ADAM WHO REPORTED THEY SHE/CHD IS CONCERNED FOR PT DUE TO HIM FALLING TWO DAYS AFTER LEAVING [facility] ([facility]), ADAM WOULD LIKE PT TO RETURN AND WAS ASKING FOR ADVICE ON WHAT TO DO WITH PT THE DETENTION THAT TAKES PTS TEMPORARILY FOR MEDICAL REASONS DOES NOT HAVE A BED AT THIS TIME, ADAM CALLED AGAIN LATER IN DAY REQUESTING PT'S DOCTOR CALL HER AND CM HAS FORWARDED THAT MESSAGE TO HOSPITALIST. CM WILL CONT TO FOLLOW D/C NEEDS. D/C PLAN TBD AT THIS TIME.
--- NOTE | 2021-01-21 16:26 | MHC.CLN ---
NUTRITION CONSULT NUTRITION CONSULT DUE TO UNINTENTIONAL WEIGHT LOSS. WEIGHT LOSS X 1 MONTH=-7%. VARIABLE WEIGHTS X 4 MONTHS WITH OVERALL WEIGHT GAIN SINCE 0F +2%. UNSURE OF CAUSAL OF WEIGHT GAIN FOLLOWED BY WEIGHT LOSS. REPORTS THAT IN GENERAL EATS WELL BUT SOMETIMES IS NOT HUNGRY. INTAKE DURING HOSPITALIZATION USUALLY 75%. PATIENT WOULD LIKE ENSURE BID. PROVIDES 700 KCAL, 32 G PROTEIN. DIET=2 GRAM SODIUM; SUPPLEMENT ENSURE BID.
[2021-01-21] MEDS: Enoxaparin Sodium 40 MG/0.4 ML SYRINGE SUBCUT (17:46)
[2021-01-21] MEDS: Loratadine 10 MG TABLET PO (19:26)
[2021-01-21] MEDS: OLANZapine 10 MG TABLET 20 MG PO (19:26)
[2021-01-21] MEDS: Melatonin 3 MG TABLET 9 MG PO (19:26)
[2021-01-22] VITALS: BP 110/54; PULSE 77; RESP 16; TEMP 36.4; O2SAT 95
[2021-01-22 04:00] VITALS: BP 114/57; PULSE 85; RESP 20; TEMP 36.4; O2SAT 93
[2021-01-22] MEDS: 0.9 % Sodium Chloride Flush 3 ML SYRINGE IVFLUSH (07:30)
[2021-01-22 07:57] VITALS: BP 109/67; PULSE 92; RESP 19; TEMP 36.1; O2SAT 92
[2021-01-22] MEDS: Omeprazole 20 MG CAPSULE.DR PO (08:14)
[2021-01-22] MEDS: dilTIAZem HCL CD 180 MG CAP.ER.24H 360 MG PO (08:14)
[2021-01-22] MEDS: Tamsulosin HCL 0.4 MG CAPSULE PO (08:14)
[2021-01-22] MEDS: carvediloL 6.25 MG TABLET PO (08:14)
[2021-01-22] MEDS: Atorvastatin Calcium 20 MG TABLET PO (08:14)
[2021-01-22 11:32] VITALS: BP 121/72; PULSE 99; RESP 18; TEMP 36.2; O2SAT 93
[2021-01-22 12:38] VITALS: PULSE 89; PULSE 97; O2SAT 91; O2SAT 92
--- NOTE | 2021-01-22 13:13 | PM.DS ---
DS: Providers Provider Date of Service: 01/22/21 Date of admission: 01/19/21 17:58 Primary care physician: Allison Perez MD Consults: 01/19/21 17:55 Consult to Neurology Routine Consulting Provider: [facility] Reason for consultation: multiple syncopal events DS: Diagnosis Discharge Diagnosis (1) Syncope: Status: Acute DS: Summary Hospital Course Hospital Course: Admitted for syncope complicated by systemic inflammatory response syndrome and lactic acidosis. he was not given antibiotics, remained afebrile and no source of infection was ever found. fever did not recur, and patient felt back to baseline shortly after arriving to hospital. he was monitored on telemetry and did not have any significant events. echo was unremarkable, orthostatic blood pressure negative, eeg was done and pending, though seen by neuro and felt neurologic cause unlikely. patient noted to be asymptomatically hypoxic. he was hypoxic on previous admission as well. likely this is chronic hypoxic respiratory failure due to copd/asthma. he will be discharged SNF for STR, will require less than 30 days Time Spent with Patient Time attestation: Total time spent providing and/or coordinating discharge services: Discharge coordination time: Greater than 30 minutes Quality: Stroke Does the patient have a stroke diagnosis?: No Physical Exam Vital Signs: Vital Signs: Last Vital Signs Temp 97.1 F 01/22/21 11:32 Pulse 99 01/22/21 11:32 Resp 18 01/22/21 11:32 BP 121/72 01/22/21 11:32 Pulse Ox 93 01/22/21 11:32 Body Mass Index 31.6 General: AO X 3, no acute distress Resp: CTA bilateral, no accessory muscles used CVS: S1,S2,RRR GI: soft, non tender, non distended Neuro: motor grossly intact, alert Psych: appropriate affect, appropriate insight DS: Data Data Completed and Pending Labs on day of discharge: Preliminary micro results at discharge 01/19/21 15:51 Blood Culture - Preliminary Blood - Venous No growth after 48 hours. 01/19/21 15:55 Blood Culture - Preliminary Blood - Venous No growth after 48 hours. Discharge Plan Discharge Patient Disposition: er SNF Discharge Diagnosis: syncope Referrals: Allison Sanchez MD [Primary Care Provider] - 01/28/21 1:30 pm (You have a telephone follow up appointment on January 28 at 1:30 pm. Your doctor will call you at the time of your appointment.) Discharge Medications: Continued prednisolone acetate 1 % drops,suspension 1 drp ophthalmic (eye) BID RF: 0 fluticasone propion-salmeterol [Advair Diskus] 500-50 mcg/dose blister with device 1 puff inhalation BID RF: 0 ketoconazole 2 % shampoo 1 appl topical DAILY RF: 0 cetirizine 10 mg Tablet 10 mg PO BEDTIME RF: 0 clobetasol 0.05 % Ointment 1 appl TOPICAL BID RF: 0 albuterol sulfate 90 mcg/actuation Hfa Aerosol Inhaler 2 puff INHALATION Q6H PRN (Reason: Wheezing) RF: 0 fluticasone propionate 50 mcg/actuation [place],Suspension 2 spray INTRANASAL DAILY RF: 0 prednisone 20 mg tablet 40 mg PO DAILY Qty: 10 RF: 0 lorazepam 0.5 mg tablet 0.5 mg PO BID PRN (Reason: Anxiety) RF: 0 atorvastatin 20 mg tablet 20 mg PO DAILY RF: 0 carvedilol 6.25 mg tablet 6.25 mg PO BID RF: 0 olanzapine 20 mg tablet 20 mg PO BEDTIME RF: 0 omeprazole 20 mg capsule,delayed release(DR/EC) 20 mg PO DAILY RF: 0 tamsulosin 0.4 mg capsule 0.4 mg PO DAILY RF: 0 diltiazem HCl 360 mg capsule,extended release 24 hr 360 mg PO DAILY RF: 0 melatonin 10 mg capsule 10 mg PO BEDTIME RF: 0 Discharge Orders: Discharge Order (Routine); Ordered 01/22/21 Ordered By: Felipe Vanegas Diet: advance to usual diet Activity on Discharge: As tolerated Stand Alone Forms: Patient Portal Discharge page Care Plan Goals: recovery Health Concerns: syncope Plan of Treatment: was unable to determine specific cause, follow up EEG results, start home o2, follow up pcp Assessment: see above
--- NOTE | 2021-01-22 13:43 | P.F2F_ITS ---
Service Date Service Date: 01/22/21 Encounter Date of encounter: 01/22/21 Reasons for Services Reason for correction: medication management, medication treatment and teach disease management Homebound: Leaving the home is medically contraindicated at this time without the asist of a device and/or another person due th the listed conditions above and below. Certification: Based on the above findings, I certify that this patient is confined to the home and needs intermittent correction care, physical therapy and/or speech therapy, or continues to need occupational therapy. The patient is under my care, and I have initiated the establishment of the plan of care. The patient will be followed by a physician who will periodically review the plan of care.
--- NOTE | 2021-01-22 14:29 | P.PNIM_ITS ---
Subjective Subjective Date of Service: 01/22/21 Interval History: cc: syncope interval history: feels back to baseline Cardiovascular Cardiovascular: Reports no additional cardiovascular complaints Respiratory Respiratory: Reports no additional respiratory complaints Physical Exam Vital Signs: Vital Signs: Last Vital Signs Temp 97.1 F 01/22/21 11:32 Pulse 99 01/22/21 11:32 Resp 18 01/22/21 11:32 BP 121/72 01/22/21 11:32 Pulse Ox 93 01/22/21 11:32 Body Mass Index 31.6 General: AO X 3, no acute distress Resp:? CTA bilateral, no accessory muscles used CVS: S1,S2,RRR GI: soft, non tender, non distended Neuro:? motor grossly intact, alert Psych: appropriate affect, appropriate insight? Objective Data Active Medications Albuterol/Ipratropium (Albuterol/Iprat 2.5/0.5mg 3 Ml Ampul.Neb) 3 ml INHALE Q4H PRN PRN Reason: sob Atorvastatin Calcium (Atorvastatin Calcium 20 Mg Tablet) 20 mg PO DAILY [facility] Last Admin: 01/22/21 08:14 Dose: 20 mg Documented by: WALT Carvedilol (Carvedilol 6.25 Mg Tablet) 6.25 mg PO BID [facility]; Protocol Last Admin: 01/22/21 08:14 Dose: 6.25 mg Documented by: WALT Diltiazem HCl (Diltiazem Hcl Cd 180 Mg Cap.Er.24h) 360 mg PO DAILY [facility]; Protocol Last Admin: 01/22/21 08:14 Dose: 360 mg Documented by: WALT Enoxaparin Sodium (Enoxaparin Sodium 40 Mg/0.4 Ml Syringe) 40 mg SUBCUT Q24H [facility] [place] Last Admin: 01/21/21 17:46 Dose: 40 mg Documented by: NIALL Loratadine (Loratadine 10 Mg Tablet) 10 mg PO BEDTIME [facility] [place] Last Admin: 01/21/21 19:26 Dose: 10 mg Documented by: BRIANA Melatonin (Melatonin 3 Mg Tablet) 9 mg PO BEDTIME [facility] [place] Last Admin: 01/21/21 19:26 Dose: 9 mg Documented by: BRIANA Olanzapine (Olanzapine 10 Mg Tablet) 20 mg PO BEDTIME [facility] [place] Last Admin: 01/21/21 19:26 Dose: 20 mg Documented by: BRIANA Omeprazole (Omeprazole 20 Mg Capsule.) 20 mg PO DAILY [facility] [place] Last Admin: 01/22/21 08:14 Dose: 20 mg Documented by: WALT Sodium Chloride (0.9 % Sodium Chloride Flush 3 Ml Syringe) 3 ml IVFLUSH QSHIFT [facility] [place] Last Admin: 01/22/21 07:30 Dose: 3 ml Documented by: WALT Tamsulosin HCl (Tamsulosin Hcl 0.4 Mg Capsule) 0.4 mg PO DAILY [facility] Last Admin: 01/22/21 08:14 Dose: 0.4 mg Documented by: WALT Labs CBC & Chem 7: 01/20/21 06:37 01/20/21 06:37 Microbiology Microbiology Results: Microbiology 01/19/21 15:51 Blood Culture - Preliminary Blood - Venous No growth after 48 hours. Assessment and Plan (1) SIRS (systemic inflammatory response syndrome): Status: Acute (2) Syncope: Status: Acute Assessment and Plan: 70M presented with multiple episodes of syncope and found to have SIRS SIRS, lactic acidosis most likely metabolic cause, no evidence of infection/sepsis no antibiotics fever did not recur cultures negative recurrent syncope differential includes seizure, cardiac arrythmia, vasovagal, orthostatic hypotenstion monitor on tele - no events so far echo with inferior wma, recent stress negative check EEG, neuro appreciated, unlikely neurological negative orthostatics chronic hypoxic respiratory failure likely due to asthma, copd, obesity o2 for sat 90-94% will need home o2 hld statin HTN coreg, cardizem mild intermittent asthma duonebs prn currently stable, no wheeze schizoaffective olanzapine bph flomax dvt prophylaxis - lovenox full code Quality Stroke Does the patient have a stroke diagnosis?: No VTE Prior VTE?: No VTE Risk Level:: Medical - moderate - high VTE Device Contraindication: Treatment Not Indicated VTE Drug Contraindication: N/A - Med Ordered
--- NOTE | 2021-01-22 14:35 | MHC.CM.PN ---
CM CONTACTED PT'S CHD NURSE ADAM TO LET HER KNOW PT WAS D/CING W/NEW HOME O2, PER ADAM WHEN PT WAS AT [facility] FOR STR HE WAS ON O2 AND PT COULD NOT MANAGE TUBING AND WOULD GET TANGLED UP AND TRIP OVER IT, [facility] WEANED HIM OFF IT WAS UNSAFE FOR HIM TO TRY AND MANAGE AT HOME, HOSPITALIST IS AWARE AND WILL ORDER PT EVAL FOR PLACEMENT, WHILE SPEAKING W/ADAM PT'S BROTHER/HCP WAS KAITLYN WAS ON PHONE ([phone]) AND REQUESTING CALL FROM HOSPITALIST, HOSPITALIST NOTIFIED VIA [employer].
[2021-01-22 15:06] VITALS: BP 121/72; PULSE 99; O2SAT 93
--- NOTE | 2021-01-22 17:05 | MHC.CM.PN ---
PT DISCHARGING TO [facility] FOR STR AT 6PM, PT'S CHD NURSE ADAM AND PT'S BROTHER/HCP KAITLYN CRAIG NOTIFIED, [facility] FOR BLS TRANSPORT.
== END 2021-01-22 18:03 | disposition skilled nursing facility (03) | DRG 312 ==
LOC: HO.ED 17:52 → HO.EDOVER 18:23 → HO.S3 01-20 23:30
PROVIDERS: Admitting Provider Internal Medicine; Emergency Provider Emergency Medicine; PCP Internal Medicine; Visit Provider Internal Medicine
DX: R55 Syncope and collapse (principal); E87.2 Acidosis; J96.11 Chronic respiratory failure with hypoxia; R65.10 Systemic inflammatory response syndrome (SIRS) of non-infectious origin without acute organ dysfunction; F25.9 Schizoaffective disorder, unspecified; E66.9 Obesity, unspecified; Z68.31 Body mass index [BMI] 31.0-31.9, adult; I25.10 Atherosclerotic heart disease of native coronary artery without angina pectoris; N40.0 Benign prostatic hyperplasia without lower urinary tract symptoms; E78.5 Hyperlipidemia, unspecified; I10 Essential (primary) hypertension; J45.20 Mild intermittent asthma, uncomplicated; Z20.822 Contact with and (suspected) exposure to COVID-19; Z23 Encounter for immunization; Z87.891 Personal history of nicotine dependence; Z88.0 Allergy status to penicillin; Z79.51 Long term (current) use of inhaled steroids; Z79.899 Other long term (current) drug therapy
CPT/HCPCS: 36415; 70450; 71045; 80048; 80076; 81001; 82550; 82947; 83605; 83690; 83735; 83880; 84484; 85025; 85027; 87040; 87635; 90686; 93005; 93306; 95816; 96360; 97162; 99285; J1650

== ENCOUNTER 2021-03-14 10:41 | Outpatient (REF) | payer MEDICARE, MEDICAID, SELFPAY ==
--- NOTE | ~2021-03-14 | XR_ITS ---
EXAMINATION: XR LUMBOSACRAL SPINE WITH OBLIQUES CLINICAL INFORMATION: Back pain. COMPARISON: Spinal radiographs on 04/09/2015 and 02/09/2008 TECHNIQUE: AP, both oblique, and lateral views of the lumbar spine. Lateral view of the lumbosacral junction. FINDINGS: There are 5 [id number] lumbar vertebral bodies. There is approximately 20% superior endplate compression of the L2 vertebral body. Intervertebral disc height loss at L3-L4 is advanced. L2 height loss appears grossly stable from 2016. Intervertebral disc height loss at L3-L4 appears slightly increased from the comparison. Intervertebral disc height loss throughout the remainder of the lumbar spine is [id number]. Mild anterolisthesis of L4 with respect to L3 is stable. There is moderate facet arthropathy from L4 to S1. The paravertebral soft tissues are within normal limits. XR/XR lumbar spine 4V min IMPRESSION: Moderate degenerative changes, as above, minimally increased in extent when compared to 2016. No acute osseous injury identified.
== END 2021-03-14 10:42 | disposition home or self-care (01) ==
LOC: HO.XRAY 10:41
PROVIDERS: PCP Emergency Medicine; Visit Provider Emergency Medicine
DX: M51.36 Other intervertebral disc degeneration, lumbar region (principal)
CPT/HCPCS: 72110

== ENCOUNTER 2022-07-31 09:28 | Outpatient (REF) | payer MEDICARE, MEDICAID, SELFPAY ==
--- NOTE | ~2022-07-31 | US_ITS ---
EXAMINATION: US RETROPERITONEAL LIMITED (AORTA) CLINICAL INFORMATION: History of smoking. COMPARISON: None available. TECHNIQUE: Mayers-scale, color Doppler and spectral Doppler evaluation of the abdominal aorta. FINDINGS: There is mild atherosclerotic disease. The measurements of the aorta in maximum AP and transverse dimensions respectively are as follows: Proximal: 2.7 x 2.7 cm. Mid: 1.9 x 1.6 cm. Distal: 1.7 x 1.7 cm. PSV: 46.7 cm/s. The measurements of the common iliac arteries in maximum AP and TRV dimensions are as follows: Right Common Iliac Artery: 1.2 x 1.3 cm. Left Common Iliac Artery: 1.3 x 1.1 cm. US/US abdominal aortic aneurysm IMPRESSION: No abdominal aortic or iliac artery aneurysm.
== END 2022-07-31 09:29 | disposition home or self-care (01) ==
LOC: HO.US 09:28
PROVIDERS: PCP Family Medicine; Visit Provider Family Medicine
DX: Z13.6 Encounter for screening for cardiovascular disorders (principal); Z87.891 Personal history of nicotine dependence
CPT/HCPCS: 76706

== ENCOUNTER 2023-09-30 10:51 | Outpatient (REF) | payer MEDICARE, MEDICAID, SELFPAY ==
[2023-09-30 14:10] LABS: MANUAL DIFF FLAG NO
[2023-09-30 14:17] LABS: Basophils Percent Auto 0.2 % (0-2); Eosinophils Absolute Auto 0.2 X10*3/uL (0.0-0.4); Eosinophils Percent Auto 2.8 % (0-4); Hematocrit 42.7 % (42.0-52.0); Hemoglobin 13.2 g/dl (14.0-18.0); Imm Gran Abs Auto 0.02 X10*3/uL (0.00-0.03); Imm Gran Pct Auto 0.4 % (0.0-0.4); Lymphocytes Absolute Auto 0.6 X10*3/uL (1.2-4.9); Lymphocytes Percent Auto 11.7 % (20-40); Mean Corpuscular HGB Conc 30.9 g/dl (31.0-36.0); Mean Corpuscular Hemoglobin 25.9 pg (27.0-33.0); Mean Corpuscular Volume 83.9 fL (80.0-98.0); Mean Platelet Volume 9.9 fL (9.4-12.4); Monocytes Absolute Auto 0.7 X10*3/uL (0.1-1.2); Monocytes Percent Auto 12.2 % (2-11); Neutrophils Absolute Auto 3.9 x10*3/uL (2.0-8.3); Neutrophils Percent Auto 72.7 % (45-73); Platelet Count 244 X10*3/uL (160-400); Red Blood Count 5.09 X10*6/uL (4.60-5.80); Red Cell Distribution Width 15.4 % (11.0-16.0); White Blood Count 5.4 X10*3/uL (4.8-10.8)
[2023-09-30 14:50] LABS: Anion Gap 14 (12-20); Blood Urea Nitrogen 13 mg/dL (9-16); Calcium 9.3 mg/dL (8.4-10.2); Carbon Dioxide 23 mmol/L (22-29); Chloride 109 mmol/L (96-108); Estimated Glomerular Filt Rate > 60; Glucose Random 135 mg/dL (60-115); Potassium 4.1 mmol/L (3.3-5.1); Sodium 142 mmol/L (135-145)
== END 2023-09-30 10:52 | disposition home or self-care (01) ==
LOC: HO.CHCLDS 10:51
PROVIDERS: Visit Provider Internal Medicine
DX: E11.9 Type 2 diabetes mellitus without complications (principal); S22.41XD Multiple fractures of ribs, right side, subsequent encounter for fracture with routine healing
CPT/HCPCS: 36415; 80048; 85025

== ENCOUNTER → 2023-11-13 09:17 | Outpatient (BNV) | payer MEDICARE, MEDICAID, SELFPAY | PROVIDERS: PCP Internal Medicine; Referring Provider Internal Medicine; Visit Provider Internal Medicine Medical Oncology | DX: C16.9 Malignant neoplasm of stomach, unspecified (principal); C79.51 Secondary malignant neoplasm of bone | CPT/HCPCS: 99204; 99213 ==

== ENCOUNTER 2023-11-16 11:28 | Outpatient (REF) | payer MEDICARE, MEDICAID, SELFPAY ==
[2023-11-16 14:37] LABS: MANUAL DIFF FLAG NO
[2023-11-16 14:43] LABS: Basophils Absolute Auto 0.1 X10*3/uL (0.0-0.2); Basophils Percent Auto 0.8 % (0-2); Eosinophils Absolute Auto 0.2 X10*3/uL (0.0-0.4); Eosinophils Percent Auto 3.5 % (0-4); Hemoglobin 12.5 g/dl (14.0-18.0); Imm Gran Abs Auto 0.03 X10*3/uL (0.00-0.03); Imm Gran Pct Auto 0.5 % (0.0-0.4); Lymphocytes Absolute Auto 0.7 X10*3/uL (1.2-4.9); Lymphocytes Percent Auto 12.4 % (20-40); Mean Corpuscular HGB Conc 30.5 g/dl (31.0-36.0); Mean Corpuscular Hemoglobin 25.9 pg (27.0-33.0); Mean Corpuscular Volume 84.9 fL (80.0-98.0); Mean Platelet Volume 9.9 fL (9.4-12.4); Monocytes Absolute Auto 0.7 X10*3/uL (0.1-1.2); Neutrophils Absolute Auto 4.2 x10*3/uL (2.0-8.3); Neutrophils Percent Auto 70.8 % (45-73); Platelet Count 183 X10*3/uL (160-400); Red Blood Count 4.83 X10*6/uL (4.60-5.80); Red Cell Distribution Width 15.4 % (11.0-16.0)
[2023-11-16 15:13] LABS: Alanine Aminotransferase 13 U/L (0-40); Albumin Level 3.8 g/dL (3.5-5.0); Alkaline Phosphatase 183 U/L (39-117); Anion Gap 12 (12-20); Aspartate Amino Transferase 12 U/L (5-37); Bilirubin Total 0.7 mg/dL (0.0-1.0); Blood Urea Nitrogen 10 mg/dL (9-16); Calcium 9.5 mg/dL (8.4-10.2); Carbon Dioxide 28 mmol/L (22-29); Chloride 106 mmol/L (96-108); Cholesterol 126 mg/dL (<200); Estimated Glomerular Filt Rate > 60; Ferritin 10 ng/mL (20-250); Glucose Random 81 mg/dL (60-115); HDL Cholesterol 33 mg/dL (>40); Iron 110 mcg/dL (45-160); LDL Cholesterol Calculated 71 mg/dL (<100); Percent Iron Saturation 36 % (15-50); Potassium 3.9 mmol/L (3.3-5.1); Sodium 142 mmol/L (135-145); Total Iron Binding Capacity 305 mcg/dL (228-428); Total Protein 6.5 g/dL (6.5-8.0); Triglycerides 114 mg/dL (<150); Unsaturated Iron Binding 195 ug/dL
== END 2023-11-16 11:29 | disposition home or self-care (01) ==
LOC: HO.CHCLDS 11:28
PROVIDERS: Visit Provider Family Medicine
DX: E66.9 Obesity, unspecified (principal); D64.9 Anemia, unspecified
CPT/HCPCS: 36415; 80053; 80061; 82728; 83540; 85025

== ENCOUNTER 2023-12-01 10:44 | Outpatient (REF) | payer MEDICARE, MEDICAID, SELFPAY ==
[2023-12-01 13:48] LABS: Prostate Specific Antigen 2.27 ng/mL (<0.05-4.0)
== END 2023-12-01 10:45 | disposition home or self-care (01) ==
LOC: HO.HMGCLDS 10:44
PROVIDERS: PCP Family Medicine; Referring Provider Physician Assistant Medical; Visit Provider Internal Medicine Medical Oncology
DX: R97.20 Elevated prostate specific antigen [PSA] (principal); Z12.5 Encounter for screening for malignant neoplasm of prostate
CPT/HCPCS: 36415; 84153

== ENCOUNTER 2023-12-08 13:38 | Outpatient (AMB) | payer MEDICARE, MEDICAID, SELFPAY ==
--- NOTE | 2023-12-08 13:40 | A.OFFVIS_ITS ---
Vital Signs 12/08/23 13:44 Height 5 ft 6 in Weight 189 lb 9.561 oz BMI 30.6 BP 118/79 Blood Pressure Location Lt brachial Position Sitting Pulse 92 Intake Visit Reasons: EGD screening Intake Note: Timothy presents in the office as a new patient for EGD screening. CC: states that he has a little issue with swallow. No stomach issues but occassionally loose stools. Allergies Penicillins [PENICILLINS] Allergy (Unknown, Verified 12/08/23 13:44) EYES GET RED latex Allergy (Verified 12/08/23 13:44) Unknown Medication List - Last Reconciled 12/08/23 by Yemi Garay MD acetaminophen 650 mg PO Q8H PRN albuterol sulfate 90 mcg/actuation 2 puffs inhalation Q6H PRN atorvastatin 20 mg PO DAILY camphor-methyl salicyl-menthol 3.1-10-6 % (Salonpas) patches topical BID carvedilol 12.5 mg PO BID cetirizine 10 mg PO BEDTIME cholecalciferol (vitamin D3) 50 mcg PO DAILY clobetasol 0.05% 1 appl topical BID ferrous sulfate 325 mg PO 3XW finasteride 5 mg PO DAILY fluticasone propionate 50 mcg/actuation 2 sprays intranasal DAILY gabapentin 300 mg PO TID lorazepam 0.5 mg PO BID PRN melatonin 10 mg PO BEDTIME PRN olanzapine 20 mg PO BEDTIME omeprazole 20 mg PO DAILY prednisolone acetate 1% drps ophthalmic (eye) sennosides (senna) 17.2 mg PO BEDTIME PRN tamsulosin 0.8 mg PO DAILY triamcinolone acetonide 0.1% 1 appl topical BID-TID HPI HPI EGD screening: Details: GI clinic visit for this 73 YM with asthma, CAD, htn, schizoaffective disorder, metastatic bone cancer of unknown primary urgently referred by Dr Shah for FU of abnormal PET scan. Possibilities include: Prostate cancer, GI malignancy including Gastric cancer, metastatic colon carcinoma versus lung cancer Baseline labs including tumor markers: CEA 3.10. LDH 160. Pt fell and broke 6 ribs in Jul, 2023 and was admitted to [facility] [place] TODAY'S VISIT: CC: states that he has a little issue with swallow. No stomach issues but occasionally loose stools. Pt is accompanied by his spring encaser, Jose from [facility]. Patient complains of intermittent dysphagia to solids and liquids, nausea and intermittent vomiting/? regurgitation. Wt loss of 16 lbs over the past few months. Diagnosed with pre-diabetes and has cut back on sodas and chips. He denies symptoms of heartburn Denies recent change in bowel habits, constipation, diarrhea, black stools or rectal bleeding. Patient denies major cardiac or problems, loud snoring or sleep apnea Pt has COPD - remote hx of smoking 3 PPD x yrs and quitted 40 yrs ago Denies problems with anesthesia in the past. Denies being on chronic anticoagulation. Pt lives in a Nursing Home in [place] Family Hx Mom had colon cancer in her 70's LABS IN [employer] : 11/16/23 reviewed IMAGING STUDIES: 11/23/23 PET SCAN SHOWED: Numerous sclerotic lesions throughout the skeleton, compatible with metastases. Large paraesophageal hernia containing essentially the entire of the stomach. Moderate FDG uptake in the stomach with SUV max of 5.2, which could be due to gastritis or tumor. Consider endoscopy. No other evidence of FDG avid malignancy. ENDOSCOPIC STUDIES: June, patient had an EGD and a colonoscopy by Dr. Padilla. EGD showed large hiatal hernia with question of thoracic stomach, gastritis, duodenal bulb ulcer. Colonoscopy showed diverticulosis and internal hemorrhoids Gastric biopsies were negative for Helicobacter pylori PFSH Medical History (Updated 12/08/23 @ 16:02 by Yemi Garay MD) Tremor Mild intermittent asthma Coronary artery disease Schizoaffective disorder HTN (hypertension) Heme + stool Surgical History (Updated 12/08/23 @ 13:49 by EDDI Da Silva) Hx of colonoscopy Family History Unknown No problems noted. Mother Colon cancer Social History Household Members: None Household Members Other:: lives alone-has patient advocate Housing: Apartment Do you presently have visiting nurse or other home services: Yes Alcohol intake: never Patient Tobacco Use Status: Former Tobacco user service: No Current occupational status: disabled Review of Systems Const Reports fatigue, Denies fever(s), Denies headache(s) and Reports weight loss (16 lbs wt loss) Eyes Denies eye discharge and Denies irritation ENT Reports Normal hearing present, Reports dysphagia, Denies dizziness and Denies headache(s) Card Denies chest pain, Denies leg edema and Reports dyspnea on exertion Resp Reports cough, Reports dyspnea on exertion and Denies wheezing GI Denies abdominal pain, Denies change in bowel habits, Reports dysphagia and Reports heartburn Denies dysuria and Reports urinary frequency Musc Denies back pain and Reports arthralgias Skin/Breast Denies pruritus, Reports rash and Denies jaundice Neuro Reports Normal hearing present, Denies Abnormal speech present, Denies dizziness, Denies headache(s) and Denies seizure-like activity Psych Reports anxiety, Denies depression and Denies panic attacks Endo Denies cold intolerance, Reports fatigue, Denies flushing and Denies heat intolerance Marcin/Lymph Denies easy bleeding and Denies easy bruising Aller/Immun Denies wheezing Physical Exam Vital Signs: Last Vital Signs Pulse 92 12/08/23 13:44 BP 118/79 12/08/23 13:44 BMI result Body Mass Index 30.6 Const General: healthy appearing and no acute distress Nutritional Appearance: average body habitus Orientation/consciousness: patient oriented x3 Limitations: no limitations HEENT Head: Yes normal to inspection Ears: hearing grossly normal bilaterally Mouth: Normal oral and palatal mucosa present Eyes Sclerae: sclerae normal Pupils: Equal, round and reactive pupils present Neck Neck: Yes normal visual inspection Chest Chest palpation & inspection: normal inspection of the chest Resp Effort & Inspection: normal respiratory effort Auscultation: clear to auscultation bilaterally Cardio Palpation: normal PMI Rate: regular rate Rhythm: regular rhythm Heart sounds: S1 normal heart sound present, S2 normal heart sound present and no murmurs GI Palpation (GI): Soft to palpation, nontender and No hepatosplenomegaly present Auscultation: normal bowel sounds Rectal Exam - Male: Yes deferred Skin General skin exam: no rashes or lesions noted Neuro General: patient oriented x3, gait normal and moves all extremities Cranial nerves: Yes Equal, round and reactive pupils present, Yes Normal hearing present and Yes Other cranial nerve findings present (tremor of both hands) Speech: No Abnormal speech present Psych Appearance: grossly normal Mental Status: mental status grossly normal Assessment & Plan Assessment & Plan (1) Acid reflux: Comment: continue omeprazole - avoid culprits Code(s): K21.9 - Gastro-esophageal reflux disease without esophagitis Category: Medical (2) Heme + stool: Code(s): R19.5 - Other fecal abnormalities Category: Medical (3) Abnormal gastrointestinal PET scan: Code(s): R94.8 - Abnormal results of function studies of other organs and systems Category: Medical (4) Large hiatal hernia: Code(s): K44.9 - Diaphragmatic hernia without obstruction or gangrene Category: Medical Plan 73 YM with asthma, CAD, htn, schizoaffective disorder, metastatic bone cancer of unknown primary urgently referred by Dr Shah for FU of abnormal PET scan. Patient complains of intermittent dysphagia to solids and liquids, nausea and intermittent vomiting/? regurgitation. Pt has COPD - remote hx of smoking 3 PPD x yrs and quitted 40 yrs ago Pt lives in a Nursing Home in [place] Mom had colon cancer in her 70's IMAGING STUDIES: 11/23/23 PET SCAN SHOWED: Numerous sclerotic lesions throughout the skeleton, compatible with metastases. Large paraesophageal hernia containing essentially the entire of the stomach. Moderate FDG uptake in the stomach with SUV max of 5.2, which could be due to gastritis or tumor. Consider endoscopy. No other evidence of FDG avid malignancy. Pt advised further evaluation with urgent EGD (Abnormal PET scan of the stomach) and colon (rule out colon primary, FH of colon cancer) He will be prepped with Dulcolax and Golytely prep EGD and Colon scheduled on 12/14/23 Orders: Orders EGD/Mobile Combo - GI Use Only Today R19.5 - Other fecal abnormalities, R94.8 - Abnormal results of function studies of other organs and systems Medications: New bisacodyl (Dulcolax (bisacodyl)) Take 4 tablets at 12 pm the day before colonoscopy appointment 20 mg (4 x 5 mg) PO ONCE 1 day 4 tabs 0RF colon prep peg 3350-electrolytes 236-22.74-6.74 -5.86 gram (Golytely) until fecal effluent is clear; do not exceed a total volume [id number] mL 240 mL PO Q10M 1 day 4,000 mL 0RF colon prep Coding Level of Care Code Est Pt Level 4 (39459) Diagnoses Acid reflux K21.9 Heme + stool R19.5 Abnormal gastrointestinal PET scan R94.8 Large hiatal hernia K44.9 Time Spent (min) 27
[2023-12-08 13:44] VITALS: BP 118/79; PULSE 92; BMI 30.6
== END 2023-12-08 15:12 | disposition home or self-care (01) ==
PROVIDERS: PCP Family Medicine; Visit Provider Internal Medicine Gastroenterology
DX: K21.9 Gastro-esophageal reflux disease without esophagitis (principal); R19.5 Other fecal abnormalities; R94.8 Abnormal results of function studies of other organs and systems; K44.9 Diaphragmatic hernia without obstruction or gangrene
CPT/HCPCS: 99214

== ENCOUNTER → 2023-12-08 13:38 | Outpatient (BNVA) | payer MEDICARE, MEDICAID, SELFPAY | PROVIDERS: PCP Family Medicine; Visit Provider Internal Medicine Gastroenterology | DX: K21.9 Gastro-esophageal reflux disease without esophagitis (principal); K44.9 Diaphragmatic hernia without obstruction or gangrene; R19.5 Other fecal abnormalities; R94.8 Abnormal results of function studies of other organs and systems | CPT/HCPCS: 99212 ==

== ENCOUNTER 2023-12-14 12:27 | Day surgery (SDC) | payer MEDICARE, MEDICAID, SELFPAY ==
--- NOTE | 2023-12-11 08:21 | HO.ANESPROP2 ---
Documented by User: Kaycee Carlson NP 12/11/23 08:53 HPI - Anesthesia Eval Consult details Narrative: 73yo M for Upper Endoscopy and Colonoscopy (Per PET scan: Large paraesophageal hernia containing essentially the entire of the stomach.) Recent onc referal for bone metastases from unknown primary. Follows [facility] Cardiology for CAD. Stable at 10/2023 office visit and optimized for potential paraesophageal hernia repair PMF Active Problems Active Problems: All Active Problems Large hiatal hernia (Acute) Abnormal gastrointestinal PET scan (Acute) Metastatic bone tumor (Acute) SIRS (systemic inflammatory response syndrome) (Acute) Syncope (Acute ~01/19/21) Acute on chronic respiratory failure with hypoxia (Acute) Tremor (Acute) Mild intermittent asthma (Acute) Coronary artery disease (Acute) Schizoaffective disorder (Acute) HTN (hypertension) (Acute) Acid reflux (Acute) Heme + stool (Acute) Past Medical History Medical History Tremor Mild intermittent asthma Coronary artery disease Schizoaffective disorder HTN (hypertension) Heme + stool Family History Family History Unknown No problems noted. Mother Colon cancer Surgical History Surgical History Hx of colonoscopy Social History Social History Household Members: None Household Members Other:: lives alone-has patient advocate Housing: Apartment Housing Other:: halfway Are you a primary district manager primary care sales to a significant other at home: No Do you presently have visiting nurse or other home services: No Alcohol intake: never Patient Tobacco Use Status: Former Tobacco user Use of substances other than those prescribed or required for medical reasons: No Have you been hit, kicked, punched, or otherwise hurt by someone within the past year? If so, by whom?: No Are you DNR?: No Advance Directives: No Advance Directives Information Provided: Yes Recently lost weight without trying: No Nutrition Risks: No Nutritional Risk service: No Current occupational status: disabled Meds Allergies Allergy/AdvReac Type Severity Reaction Status Date / Time Penicillins [PENICILLINS] Allergy Unknown EYES GET Verified 12/08/23 13:44 RED latex Allergy Unknown Verified 12/08/23 13:44 Home Medications ?Medication ?Instructions ?Recorded ?Confirmed ?Last Taken ?Type atorvastatin 20 mg tablet 20 mg PO DAILY 10/11/20 12/08/23 12/14/23 History lorazepam 0.5 mg tablet 0.5 mg PO BID PRN Anxiety 10/11/20 12/08/23 Unknown History olanzapine 20 mg tablet 20 mg PO BEDTIME 10/11/20 12/08/23 Unknown History omeprazole 20 mg capsule,delayed 20 mg PO DAILY 10/11/20 12/08/23 12/14/23 History release albuterol sulfate 90 mcg/actuation 2 puff inhalation Q6H PRN Wheezing 12/20/20 12/08/23 Unknown History aerosol inhaler cetirizine 10 mg tablet 10 mg PO BEDTIME 12/20/20 12/08/23 Unknown History clobetasol 0.05 % topical ointment 1 appl topical BID 12/20/20 12/08/23 Unknown History fluticasone propionate 50 2 spray intranasal DAILY 12/20/20 12/08/23 Unknown History mcg/actuation nasal spray,suspension gabapentin 300 mg capsule 300 mg PO TID 11/13/23 12/08/23 12/14/23 History acetaminophen 325 mg tablet 650 mg PO Q8H PRN pain 12/08/23 12/08/23 Unknown History camphor 3.1 %-methyl salicylate 10 patch topical BID 12/08/23 12/08/23 Unknown History %-menthol 6 % topical patch (Salonpas) carvedilol 12.5 mg tablet 12.5 mg PO BID 12/08/23 12/08/23 12/14/23 History cholecalciferol (vitamin D3) 50 50 mcg PO DAILY 12/08/23 12/08/23 Unknown History mcg (2,000 unit) capsule ferrous sulfate 325 mg (65 mg 325 mg PO 3XW 12/08/23 12/08/23 Unknown History iron) tablet finasteride 5 mg tablet 5 mg PO DAILY 12/08/23 12/08/23 Unknown History melatonin 5 mg tablet 10 mg PO BEDTIME PRN insomnia 12/08/23 12/08/23 Unknown History prednisolone acetate 1 % eye drp ophthalmic (eye) 12/08/23 12/08/23 Unknown History drops,suspension sennosides 8.6 mg tablet (senna) 17.2 mg PO BEDTIME PRN constipation 12/08/23 12/08/23 Unknown History tamsulosin 0.4 mg capsule 0.8 mg PO DAILY 12/08/23 12/08/23 Unknown History triamcinolone acetonide 0.1 % 1 appl topical BID-TID 12/08/23 12/08/23 Unknown History topical ointment Exam Pertinent Lab Results Pertinent Lab Results: Laboratory Tests 11/16/23 11:29 WBC 6.0 Hgb 12.5 L Hct 41.0 L Plt Count 183 Sodium 142 Potassium 3.9 Chloride 106 Carbon Dioxide 28 BUN 10 Creatinine 0.71 Narrative Narrative: 11/23/23 PET SCAN SHOWED: Numerous sclerotic lesions throughout the skeleton, compatible with metastases. Large paraesophageal hernia containing essentially the entire of the stomach. Moderate FDG uptake in the stomach with SUV max of 5.2, which could be due to gastritis or tumor. Consider endoscopy. No other evidence of FDG avid malignancy. Assessment and Plan Assessment Anesthesia Assessment: Chart Reviewed Documented by User: Jessica Cho MD 12/14/23 13:41 [facility] Past Medical History Medical History Tremor Mild intermittent asthma Coronary artery disease Schizoaffective disorder HTN (hypertension) Heme + stool Family History Family History Unknown No problems noted. Mother Colon cancer Family history of problems with anesthesia: No Surgical History Surgical History Hx of colonoscopy History of Problems with Anesthesia: No Social History Social History Household Members: None Household Members Other:: lives alone-has patient advocate Housing: Apartment Housing Other:: halfway Are you a primary district manager primary care sales to a significant other at home: No Do you presently have visiting nurse or other home services: No Alcohol intake: never Patient Tobacco Use Status: Former Tobacco user Use of substances other than those prescribed or required for medical reasons: No Have you been hit, kicked, punched, or otherwise hurt by someone within the past year? If so, by whom?: No Are you DNR?: No Advance Directives: No Advance Directives Information Provided: Yes Recently lost weight without trying: No Nutrition Risks: No Nutritional Risk service: No Current occupational status: disabled Meds Allergies Allergy/AdvReac Type Severity Reaction Status Date / Time Penicillins [PENICILLINS] Allergy Unknown EYES GET Verified 12/08/23 13:44 RED latex Allergy Unknown Verified 12/08/23 13:44 Home Medications ?Medication ?Instructions ?Recorded ?Confirmed ?Last Taken ?Type atorvastatin 20 mg tablet 20 mg PO DAILY 10/11/20 12/08/23 12/14/23 History lorazepam 0.5 mg tablet 0.5 mg PO BID PRN Anxiety 10/11/20 12/08/23 Unknown History olanzapine 20 mg tablet 20 mg PO BEDTIME 10/11/20 12/08/23 Unknown History omeprazole 20 mg capsule,delayed 20 mg PO DAILY 10/11/20 12/08/23 12/14/23 History release albuterol sulfate 90 mcg/actuation 2 puff inhalation Q6H PRN Wheezing 12/20/20 12/08/23 Unknown History aerosol inhaler cetirizine 10 mg tablet 10 mg PO BEDTIME 12/20/20 12/08/23 Unknown History clobetasol 0.05 % topical ointment 1 appl topical BID 12/20/20 12/08/23 Unknown History fluticasone propionate 50 2 spray intranasal DAILY 12/20/20 12/08/23 Unknown History mcg/actuation nasal spray,suspension gabapentin 300 mg capsule 300 mg PO TID 11/13/23 12/08/23 12/14/23 History acetaminophen 325 mg tablet 650 mg PO Q8H PRN pain 12/08/23 12/08/23 Unknown History camphor 3.1 %-methyl salicylate 10 patch topical BID 12/08/23 12/08/23 Unknown History %-menthol 6 % topical patch (Salonpas) carvedilol 12.5 mg tablet 12.5 mg PO BID 12/08/23 12/08/23 12/14/23 History cholecalciferol (vitamin D3) 50 50 mcg PO DAILY 12/08/23 12/08/23 Unknown History mcg (2,000 unit) capsule ferrous sulfate 325 mg (65 mg 325 mg PO 3XW 12/08/23 12/08/23 Unknown History iron) tablet finasteride 5 mg tablet 5 mg PO DAILY 12/08/23 12/08/23 Unknown History melatonin 5 mg tablet 10 mg PO BEDTIME PRN insomnia 12/08/23 12/08/23 Unknown History prednisolone acetate 1 % eye drp ophthalmic (eye) 12/08/23 12/08/23 Unknown History drops,suspension sennosides 8.6 mg tablet (senna) 17.2 mg PO BEDTIME PRN constipation 12/08/23 12/08/23 Unknown History tamsulosin 0.4 mg capsule 0.8 mg PO DAILY 12/08/23 12/08/23 Unknown History triamcinolone acetonide 0.1 % 1 appl topical BID-TID 12/08/23 12/08/23 Unknown History topical ointment Exam Airway Mallampati Class: II TM Dist: >3cm Neck ROM: Full Denture: Upper Heart: rrr Lungs: cta Assessment and Plan Assessment Anesthesia Assessment: Anesthesia Plan Discussed Final Anesthetic Review Family History of Problems with Anesthesia: No History of Problems with Anesthesia: No NPO: Yes ASA Class: III Final Preanesthetic Review: No Changes in Pt Med Stat, Meds/Allgs Chart Reviewed and Consent Obtained/Reviewed Patient Risk: Intermediate Procedure Risk: Intermediate Anesthetic Plan Anesthetic Plan: MAC: Disposition: Standard PACU
[2023-12-14 12:52] VITALS: BMI 31.3
[2023-12-14 13:00] VITALS: BP 118/79; PULSE 90; RESP 16; TEMP 36.4; O2SAT 91
[2023-12-14] MEDS: Lactated Ringers 1,000 ML 100 ML IVCONT (13:07)
--- NOTE | 2023-12-14 13:40 | MHC.SHP ---
Pre-Procedural Eval Section A - 24 Hr Update-Section A only Date of Service: 12/14/23 The patient is an INPATIENT: No Changes since office visit: Yes Patient answered all questions; No Cold of Flu in the past 2 weeks, No New Medical Problems and No Changes in Medication The patient has been examined within 24 hours of the surgical procedure. 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 No changes have occurred unless specified. Time Spent With Patient Time: Total time managing care of this patient today ____ minutes.
--- NOTE | 2023-12-14 14:00 | P.OPN-COLO_ITS ---
Colonoscopy Operative Note Operative Note Date of Service: 12/14/23 Narrative: FLEXIBLE TRANSORAL UPPER GASTROINTESTINAL ENDOSCOPY WITH BIOPSIES AND COLONOSCOPY TILL CECUM WITH SNARE POLYPECTOMY AND HEMOCLIP PLACEMENT Pre-op diagnosis: Abnormal PET scan of the stomach, dysphagia Post-op diagnosis: large hiatal hernia, Gastritis, Mass gastric antrum, Colon Polyp, Diverticulosis, hemorrhoids Endoscopist:? Yemi Garay MD Anesthesia:?MAC UPPER ENDOSCOPY Consent: Indications for the procedure and potential complications of bleeding, perforation, reaction to medications and missed diagnosis were discussed with the patient and informed consent was obtained. Instrument: Olympus GIF H 190 mid size upper endoscope Monitoring: Vital signs and clinical assessment, continuous EKG monitoring, Pulse oximetry, Carbon Dioxide monitoring and blood pressure monitoring were done throughout the procedure. Procedure: The patient was placed in the left lateral decubitis position and pre-procedure medications were administered and a bite block was placed. The endoscope was inserted into the mouth and advanced under direct vision to the third part of duodenum. A careful inspection was made as the upper endoscope was withdrawn including a retroflexed examination of the proximal stomach; Findings and interventions are described below. Findings: Larynx: Normal Esophagus: GE junction at 35 cms. Mildly tortuous esophagus without stricture or ring No esophagitis or Goldstein's. Large hiatal hernia 35 to 45 cms. Stomach: Large hiatal hernia with a component of intra-thoracic stomach. Moderate diffuse gastric erythema - biopsies were obtained from the gastric body (to check for gastric intestinal metaplasia) and antrum (to check for H pylori infection). Edematous and ulcerated gastric folds with a circumferential mass from 65 to 75 with narrowing of the lumen. Multiple biopsies were obtained from the mass. A mid size upper endoscope was passed through the mass into the duodenum with some resistance Grade 3 flap valve on retroflexed examination of the cardia. Duodenum: Normal bulb and descending duodenum Intervention: Biopsies as noted above COLONOSCOPY PROCEDURE NOTE Instrument: Olympus CF H 190 L variable stiffness adult colonoscope Monitoring: Vital signs and clinical assessment, intermittent blood pressure monitoring, continuous EKG monitoring, Pulse oximetry and Carbon Dioxide monitoring were done throughout the procedure. Please see anesthesia flowsheet. Colon withdrawl time was 26 minutes. Procedure: The patient was placed in the left lateral decubitis position and pre-procedure medications were administered. After a digital rectal examination of the ano-rectum, the video colonoscope was inserted into the rectum and advanced through the colon to the cecum. The colonoscope was slowly withdrawn in a retrograde panoramic fashion and the colon mucosa was carefully examined including a retroflexed view of the rectum. Findings and interventions are described below. Procedure Difficulty: without difficulty Findings: Terminal Ileum: Not evaluated Cecum: Partially evaluated due to sub-optimal prep Ascending Colon: Partially evaluated due to sub-optimal prep A 9-10 mm sessile polyp in the mid AC - removed with a cold snare. Polypectomy site was closed with one hemoclip. Transverse Colon: Normal Descending Colon: Moderate diverticulosis Sigmoid Colon: Severe diverticulosis with luminal narrowing Rectum: Normal Ano-rectum: Small internal hemorrhoids Colon preparation: Good to fair in the left and transverse colon and poor in the right colon despite copious irrigation. [place] Bowel Preparation Scale Right colon; 1 Transverse colon: 2 Left colon; 2 (0 = Unprepared colon segment with mucosa not seen due to solid stool that cannot be cleared. 1 = Portion of mucosa of the colon segment seen, but other areas of the colon segment not well seen due to staining, residual stool and/or opaque liquid. 2 = Minor amount of residual staining, small fragments of stool and/or opaque liquid, but mucosa of colon segment seen well. 3 = Entire mucosa of colon segment seen well with no residual staining, small fragments of stool or opaque liquid) Impression and Post Procedure Diagnosis: Endoscopy Findings: ESOPHAGUS: Mildly tortuous esophagus without stricture, ring, esophagitis or Goldstein's. STOMACH: Gastritis and large ulcerated gastric antral mass. DUODENUM: Normal Colonoscopy Findings: One medium sized polyp was removed Moderate to severe diverticulosis seen in the left colon Small hemorrhoids on antegrade exam. Plan: Pt has a FU appointment on 12/31/[address] Garay Repeat Colonoscopy depending on pt's prognosis after treatment of gastric mass with bone mets. Above findings were reviewed with the patient and relevant handouts were given and the discharge area.
[2023-12-14 14:38] VITALS: BP 113/65; PULSE 88; RESP 15; TEMP 36.6; O2SAT 98
[2023-12-14 14:46] VITALS: PULSE 90; RESP 16
[2023-12-14 14:52] VITALS: BP 123/69; PULSE 86; RESP 16; O2SAT 91
[2023-12-14 15:08] VITALS: BP 115/82; PULSE 90; RESP 16; O2SAT 92
[2023-12-14 15:23] VITALS: BP 124/80; PULSE 90; RESP 16; TEMP 36.8; O2SAT 92
== END 2023-12-14 15:43 | disposition home or self-care (01) ==
PROVIDERS: Pathology Anatomic Pathology & Clinical Pathology; PCP Family Medicine; Visit Provider Internal Medicine Gastroenterology
PROC: (CPT 45385; principal; 2023-12-14 10:10)
DX: R93.3 Abnormal findings on diagnostic imaging of other parts of digestive tract (principal); Z80.0 Family history of malignant neoplasm of digestive organs; K63.5 Polyp of colon; D12.2 Benign neoplasm of ascending colon; K57.30 Diverticulosis of large intestine without perforation or abscess without bleeding; K64.8 Other hemorrhoids; C16.3 Malignant neoplasm of pyloric antrum; C16.2 Malignant neoplasm of body of stomach; C79.51 Secondary malignant neoplasm of bone; K29.50 Unspecified chronic gastritis without bleeding; R11.2 Nausea with vomiting, unspecified; R13.10 Dysphagia, unspecified; K44.9 Diaphragmatic hernia without obstruction or gangrene; I25.10 Atherosclerotic heart disease of native coronary artery without angina pectoris; I10 Essential (primary) hypertension; R73.03 Prediabetes; J44.9 Chronic obstructive pulmonary disease, unspecified; J45.20 Mild intermittent asthma, uncomplicated; R63.4 Abnormal weight loss; Z68.30 Body mass index [BMI] 30.0-30.9, adult; F25.9 Schizoaffective disorder, unspecified; Z88.0 Allergy status to penicillin; Z91.040 Latex allergy status; Z79.899 Other long term (current) drug therapy; Z87.891 Personal history of nicotine dependence
CPT/HCPCS: 45385; 43239; 36415; 88305; 88313; 88341; 88342; 88360; J2704

== ENCOUNTER → 2023-12-14 12:27 | Outpatient (BNV) | payer MEDICARE, MEDICAID, SELFPAY | PROVIDERS: PCP Family Medicine; Visit Provider Internal Medicine Gastroenterology | DX: C16.3 Malignant neoplasm of pyloric antrum (principal); K29.70 Gastritis, unspecified, without bleeding; D12.2 Benign neoplasm of ascending colon; K57.90 Diverticulosis of intestine, part unspecified, without perforation or abscess without bleeding; K64.8 Other hemorrhoids; Z91.199 Patient's noncompliance with other medical treatment and regimen due to unspecified reason | CPT/HCPCS: 43239; 45385 ==

== ENCOUNTER 2023-12-29 11:57 | Day surgery (SDC) | payer MEDICARE, MEDICAID, SELFPAY ==
--- NOTE | ~2023-12-29 | IR_ITS ---
CLINICAL HISTORY: Metastatic gastric cancer. The patient presents to interventional radiology for placement of a port for chemotherapy. PROCEDURES: 1. Real-time ultrasound-guided access into the right internal jugular vein after documentation of selected vessel patency, and permanent image storing in the patient records. 2. Placement of a 6.6 Tajik single-lumen power port. CLINICIAN: Nigel Reyes PA-C MEDICATIONS: - Versed 1 mg, Fentanyl 50 mcg, Lidocaine 1% 10 mL SQ -Antibiotics: Clindamycin 600 mg -For additional details, please see nursing flowsheet. Complications: None. Estimated blood loss: <5 ml Specimens: None. Contrast: None. Fluoroscopy time: 1.0 min MODERATE SEDATION TIME: 27 min PROCEDURE NOTE: The procedure, risks, benefits, and alternatives were carefully explained to the patient and written informed consent was obtained. The patient was placed supine on the fluoroscopy table. A timeout was performed. The right neck and chest was prepped and draped in usual sterile fashion. Maximum barrier technique was utilized. Local anesthesia was administered to the access site with 1% lidocaine. Under ultrasound guidance, the right internal jugular vein was accessed with a 5 fr micropuncture set. A 0.035 in wire was advanced into the IVC. A peel-away sheath was advanced over the wire and into the SVC, and the wire was removed. Next, subcutaneous lidocaine was administered to the chest. The port pocket was created after the skin incision, utilizing blunt dissection. Using blunt dissection, a subcutaneous tunnel was created that connects from the port pocket to the venotomy site. Through the peel-away sheath, the 6.6 Tajik port catheter was placed. The catheter position was verified with fluoroscopy to be at the superior vena cava/right atrial junction. The port was connected to the catheter and was placed in the pocket. The venotomy site was closed with a 3-0 Vicryl subcutaneous suture. The port incision site was closed with interrupted 3-0 Vicryl subcutaneous sutures and surgical glue. The port was tested, flushed, and packed with heparin per routine protocol. The patient tolerated the procedure well. The patient was stable after the procedure and was transferred to the PACU. The procedure was performed under moderate sedation and with a dedicated nurse with continuous monitoring of vital signs. A permanent image of the ultrasound the neck and fluoroscopic image of the chest was saved and sent to PACS. FINDINGS: 1. Patent right internal jugular vein 2. Placement of a 6.6 Tajik single lumen power port. 3. Port flushes and aspirates very well with a 10 mL syringe. No pneumothorax. IR/IR cvc insert tunnel w prt/international trade specialist IMPRESSION: Placement of a 6.6 Tajik single-lumen power port. PLAN: - The patient will be discharged home when stable by sedation protocol. - Port may be used immediately. This procedure was performed by Nigel Reyes PA-C, and directly supervised by Dr. Rey Electronically signed by: Francisco Rey MD 01/14/2024 02:10 PM EDT
[2023-12-29 12:28] VITALS: BMI 29.8
[2023-12-29 12:30] VITALS: BP 120/76; PULSE 86; RESP 18; TEMP 36.7; O2SAT 92
[2023-12-29 12:39] LABS: Partial Thromboplastin Time 35.4 SEC (26.0-36.8)
--- NOTE | 2023-12-29 12:58 | MHC.SHP ---
Pre-Procedural Eval Section A - 24 Hr Update-Section A only Date of Service: 12/29/23 Section B - Complete if H&P > 30 days Chief Complaint: facilitate chemotherapy-malignant neoplasm stomach Details of Present Illness: 73 y/o man with metastatic gastric cancer and poor iv access Relevant Family History (Specify if Yes): No Relevant Social History: Tobacco Use (quit ) Present Medications: see Short Stay Collaborative assessment Medical History: Significant History History of Previous Operations: Relevant previous surgery/procedure and date(s) Allergies: Allergies Allergy/AdvReac Type Severity Reaction Status Date / Time Penicillins [PENICILLINS] Allergy Unknown EYES GET Verified 12/29/23 12:31 RED latex Allergy Unknown Verified 12/29/23 12:31 Review of Systems Sugical H&P ROS: Negative: Constitution, Cardiovascular and Respiratory (no dyspnea) Exam Surgical H&P Exam: Normal: Heart, Normal: Lungs and Normal: Skin and Significant Findings: Neurological (alert to self, place, and situation) Plan 73 y/o man with metastatic gastric cancer and poor iv access -Port Time Spent With Patient Time: Total time managing care of this patient today ____ minutes.
--- NOTE | 2023-12-29 13:13 | PC.NURSE ---
author spoke with Zhang Reyes PA. Patient sats are 91-92% RA. upper lobes are clear, lower left has very slight crackles and right lower is diminished but clear. Zhang assessed and reviewed history and stated this is patient baseline and no interventions at this time. OK to proceed.
[2023-12-29 14:44] VITALS: BP 129/69; PULSE 76; RESP 18; TEMP 36.6; O2SAT 90
== END 2023-12-29 14:58 | disposition home or self-care (01) ==
PROVIDERS: Physician Assistant Surgical; Student in an Organized Health Care Education/Training Program; PCP Internal Medicine; Visit Provider Internal Medicine Medical Oncology
DX: Z45.2 Encounter for adjustment and management of vascular access device (principal); C16.9 Malignant neoplasm of stomach, unspecified; C79.51 Secondary malignant neoplasm of bone; R07.81 Pleurodynia; R53.83 Other fatigue; R53.1 Weakness; R20.0 Anesthesia of skin; Z91.81 History of falling; R19.5 Other fecal abnormalities; Z80.0 Family history of malignant neoplasm of digestive organs; I25.10 Atherosclerotic heart disease of native coronary artery without angina pectoris; I10 Essential (primary) hypertension; E78.5 Hyperlipidemia, unspecified; R25.1 Tremor, unspecified; E11.9 Type 2 diabetes mellitus without complications; J45.20 Mild intermittent asthma, uncomplicated; K44.9 Diaphragmatic hernia without obstruction or gangrene; F25.9 Schizoaffective disorder, unspecified; F31.9 Bipolar disorder, unspecified; Z86.0101 Personal history of adenomatous and serrated colon polyps; Z79.51 Long term (current) use of inhaled steroids; Z79.899 Other long term (current) drug therapy; Z87.891 Personal history of nicotine dependence; Z88.0 Allergy status to penicillin; Z91.040 Latex allergy status
CPT/HCPCS: 36415; 36561; 76937; 85610; 85730; 99152; 99153; C1769; C1788; J0131; J0736; J1642; J1644; J2003; J2250; J2310; J3010

== ENCOUNTER → 2023-12-29 13:30 | Outpatient (BNV) | payer MEDICARE, MEDICAID, SELFPAY | PROVIDERS: PCP Internal Medicine; Visit Provider Physician Assistant Surgical | DX: C16.9 Malignant neoplasm of stomach, unspecified (principal) | CPT/HCPCS: 36561; 76937 ==

== ENCOUNTER → 2024-01-12 10:23 | Outpatient (BNVA) | payer MEDICARE, MEDICAID, SELFPAY | PROVIDERS: PCP Internal Medicine; Visit Provider Internal Medicine Gastroenterology ==

== ENCOUNTER 2024-01-22 11:33 | Outpatient (REF) | payer MEDICARE, MEDICAID, SELFPAY ==
[2024-01-22 13:25] LABS: MANUAL DIFF FLAG NO
[2024-01-22 13:44] LABS: Basophils Percent Auto 0.4 % (0-2); Eosinophils Percent Auto 0.2 % (0-4); Hematocrit 42.1 % (42.0-52.0); Hemoglobin 13.3 g/dl (14.0-18.0); Imm Gran Abs Auto 0.03 X10*3/uL (0.00-0.03); Imm Gran Pct Auto 0.3 % (0.0-0.4); Lymphocytes Absolute Auto 0.6 X10*3/uL (1.2-4.9); Lymphocytes Percent Auto 5.8 % (20-40); Mean Corpuscular HGB Conc 31.6 g/dl (31.0-36.0); Mean Corpuscular Hemoglobin 26.3 pg (27.0-33.0); Mean Corpuscular Volume 83.2 fL (80.0-98.0); Mean Platelet Volume 9.9 fL (9.4-12.4); Monocytes Absolute Auto 0.8 X10*3/uL (0.1-1.2); Monocytes Percent Auto 8.1 % (2-11); Neutrophils Absolute Auto 8.9 x10*3/uL (2.0-8.3); Neutrophils Percent Auto 85.2 % (45-73); Platelet Count 107 X10*3/uL (160-400); Red Blood Count 5.06 X10*6/uL (4.60-5.80); Red Cell Distribution Width 14.6 % (11.0-16.0); White Blood Count 10.4 X10*3/uL (4.8-10.8)
[2024-01-22 14:19] LABS: Alanine Aminotransferase 11 U/L (0-40); Albumin Level 3.5 g/dL (3.5-5.0); Alkaline Phosphatase 125 U/L (39-117); Anion Gap 12 (12-20); Aspartate Amino Transferase 17 U/L (5-37); Bilirubin Direct 0.2 mg/dL (0.0-0.5); Bilirubin Total 0.6 mg/dL (0.0-1.0); Blood Urea Nitrogen 10 mg/dL (9-16); Calcium 7.7 mg/dL (8.4-10.2); Carbon Dioxide 24 mmol/L (22-29); Chloride 108 mmol/L (96-108); Estimated Glomerular Filt Rate > 60; Glucose Random 124 mg/dL (60-115); Potassium 3.9 mmol/L (3.3-5.1); Sodium 140 mmol/L (135-145)
== END 2024-01-22 11:34 | disposition home or self-care (01) ==
LOC: HO.HMGCLDS 11:33
PROVIDERS: PCP Family Medicine; Visit Provider Internal Medicine Medical Oncology
DX: C79.51 Secondary malignant neoplasm of bone (principal)
CPT/HCPCS: 36415; 80053; 82248; 85025

== ENCOUNTER 2024-02-05 11:28 | Outpatient (REF) | payer MEDICARE, MEDICAID, SELFPAY ==
[2024-02-05 13:02] LABS: MANUAL DIFF FLAG NO
[2024-02-05 13:11] LABS: Basophils Percent Auto 0.2 % (0-2); Eosinophils Percent Auto 0.6 % (0-4); Hematocrit 39.5 % (42.0-52.0); Hemoglobin 12.8 g/dl (14.0-18.0); Imm Gran Abs Auto 0.02 X10*3/uL (0.00-0.03); Imm Gran Pct Auto 0.4 % (0.0-0.4); Lymphocytes Absolute Auto 0.7 X10*3/uL (1.2-4.9); Mean Corpuscular HGB Conc 32.4 g/dl (31.0-36.0); Mean Corpuscular Hemoglobin 26.3 pg (27.0-33.0); Mean Corpuscular Volume 81.3 fL (80.0-98.0); Monocytes Absolute Auto 0.8 X10*3/uL (0.1-1.2); Monocytes Percent Auto 16.1 % (2-11); Neutrophils Absolute Auto 3.2 x10*3/uL (2.0-8.3); Neutrophils Percent Auto 68.7 % (45-73); Platelet Count 133 X10*3/uL (160-400); Red Blood Count 4.86 X10*6/uL (4.60-5.80); Red Cell Distribution Width 14.5 % (11.0-16.0); White Blood Count 4.7 X10*3/uL (4.8-10.8)
[2024-02-05 13:56] LABS: Alanine Aminotransferase 18 U/L (0-40); Albumin Level 3.4 g/dL (3.5-5.0); Alkaline Phosphatase 114 U/L (39-117); Anion Gap 8 (12-20); Aspartate Amino Transferase 18 U/L (5-37); Bilirubin Direct 0.2 mg/dL (0.0-0.5); Bilirubin Total 0.5 mg/dL (0.0-1.0); Blood Urea Nitrogen 10 mg/dL (9-16); Calcium 7.8 mg/dL (8.4-10.2); Carbon Dioxide 29 mmol/L (22-29); Chloride 107 mmol/L (96-108); Estimated Glomerular Filt Rate > 60; Glucose Random 133 mg/dL (60-115); Potassium 3.3 mmol/L (3.3-5.1); Sodium 141 mmol/L (135-145); Total Protein 5.7 g/dL (6.5-8.0)
== END 2024-02-05 11:29 | disposition home or self-care (01) ==
LOC: HO.HMGCLDS 11:28
PROVIDERS: PCP Family Medicine; Visit Provider Internal Medicine Medical Oncology
DX: C16.9 Malignant neoplasm of stomach, unspecified (principal)
CPT/HCPCS: 36415; 80053; 82248; 85025

== ENCOUNTER 2024-02-19 10:34 | Outpatient (REF) | payer MEDICARE, MEDICAID, SELFPAY ==
[2024-02-19 13:38] LABS: MANUAL DIFF FLAG NO
[2024-02-19 13:46] LABS: Basophils Percent Auto 0.7 % (0-2); Eosinophils Percent Auto 0.4 % (0-4); Hematocrit 37.6 % (42.0-52.0); Hemoglobin 12.2 g/dl (14.0-18.0); Imm Gran Abs Auto 0.03 X10*3/uL (0.00-0.03); Imm Gran Pct Auto 0.7 % (0.0-0.4); Lymphocytes Absolute Auto 0.4 X10*3/uL (1.2-4.9); Lymphocytes Percent Auto 9.1 % (20-40); Mean Corpuscular HGB Conc 32.4 g/dl (31.0-36.0); Mean Corpuscular Hemoglobin 26.2 pg (27.0-33.0); Mean Corpuscular Volume 80.9 fL (80.0-98.0); Mean Platelet Volume 10.6 fL (9.4-12.4); Monocytes Absolute Auto 0.7 X10*3/uL (0.1-1.2); Monocytes Percent Auto 15.2 % (2-11); Neutrophils Absolute Auto 3.4 x10*3/uL (2.0-8.3); Neutrophils Percent Auto 73.9 % (45-73); Platelet Count 109 X10*3/uL (160-400); Red Blood Count 4.65 X10*6/uL (4.60-5.80); Red Cell Distribution Width 15.2 % (11.0-16.0); White Blood Count 4.5 X10*3/uL (4.8-10.8)
[2024-02-19 14:07] LABS: Alanine Aminotransferase 23 U/L (0-40); Albumin Level 3.3 g/dL (3.5-5.0); Alkaline Phosphatase 98 U/L (39-117); Anion Gap 13 (12-20); Aspartate Amino Transferase 34 U/L (5-37); Bilirubin Direct 0.4 mg/dL (0.0-0.5); Bilirubin Total 0.9 mg/dL (0.0-1.0); Blood Urea Nitrogen 10 mg/dL (9-16); Carbon Dioxide 24 mmol/L (22-29); Chloride 107 mmol/L (96-108); Estimated Glomerular Filt Rate > 60; Glucose Random 198 mg/dL (60-115); Potassium 3.5 mmol/L (3.3-5.1); Sodium 140 mmol/L (135-145); Total Protein 5.9 g/dL (6.5-8.0)
== END 2024-02-19 10:35 | disposition home or self-care (01) ==
LOC: HO.HMGCLDS 10:34
PROVIDERS: PCP Family Medicine; Visit Provider Internal Medicine Medical Oncology
DX: C16.9 Malignant neoplasm of stomach, unspecified (principal)
CPT/HCPCS: 36415; 80053; 82248; 85025

== ENCOUNTER 2024-02-20 16:24 | Emergency (ER) | payer MEDICARE, MEDICAID, SELFPAY ==
--- NOTE | 2024-02-20 | ECG_ITS ---
Test Reason : chest pain Blood Pressure : / mmHG Vent. Rate : 101 BPM Atrial Rate : 101 BPM P-R Int : 164 ms QRS Dur : 084 ms QT Int : 324 ms P-R-T Axes : 083 076 041 degrees QTc Int : 420 ms Sinus tachycardia Low voltage QRS Borderline ECG When compared with ECG of 19-JAN-2021 15:43, No significant change was found Referred By: Generic ED Physician Electronically Signed By:CROW HUGHES
--- NOTE | ~2024-02-20 | XR_ITS ---
EXAMINATION: XR CHEST CLINICAL INFORMATION: cough COMPARISON: Chest x-ray January 19, 2021. CT of chest January 12, 2018 TECHNIQUE: 2 views of the chest were obtained. FINDINGS: Patchy airspace opacities concerning for pneumonia in the left mid and upper lung. There are also subtle density at the peripheral right lung base and medial right upper lobe. No dense consolidation. No pleural effusion. Large hiatal hernia. Central port catheter tip over right atrium. XR/XR chest 2V IMPRESSION: Patchy airspace opacities concerning for pneumonia. Electronically signed by: Gurvinder Rey MD 02/20/2024 05:55 PM EST
[2024-02-20 16:33] VITALS: BP 110/67; BP 133/84; PULSE 107; PULSE 98; RESP 18; TEMP 37.4; O2SAT 93; BMI 27.7
[2024-02-20 17:39] LABS: Basophils Percent Auto 0.7 % (0-2); Eosinophils Percent Auto 0.7 % (0-4); Hematocrit 35.9 % (42.0-52.0); Hemoglobin 11.6 g/dl (14.0-18.0); Imm Gran Abs Auto 0.02 X10*3/uL (0.00-0.03); Imm Gran Pct Auto 0.7 % (0.0-0.4); Lymphocytes Absolute Auto 0.4 X10*3/uL (1.2-4.9); Lymphocytes Percent Auto 14.1 % (20-40); MANUAL DIFF FLAG SCAN; Mean Corpuscular HGB Conc 32.3 g/dl (31.0-36.0); Mean Corpuscular Hemoglobin 26.2 pg (27.0-33.0); Monocytes Absolute Auto 0.7 X10*3/uL (0.1-1.2); Monocytes Percent Auto 26.1 % (2-11); Neutrophils Absolute Auto 1.6 x10*3/uL (2.0-8.3); Neutrophils Percent Auto 57.7 % (45-73); Red Blood Count 4.43 X10*6/uL (4.60-5.80); Red Cell Distribution Width 15.2 % (11.0-16.0); SCAN SMEAR FLAG 1; White Blood Count 2.8 X10*3/uL (4.8-10.8)
--- NOTE | 2024-02-20 17:46 | ED.CHESTPAIN ---
HPI - Chest Pain General Chief Complaint: Chest Pain Stated Complaint: COUGH Time Seen by Provider: 02/20/24 16:54 Source: patient and RN notes reviewed Mode of arrival: EMS Limitations: other (porr historian) History of Present Illness ED Provider: Peterson HPI narrative: 73-year-old male past medical history significant for gastric cancer, coronary artery disease, hypertension, schizoaffective disorder, diabetes presents for evaluation of cough with chest pain. Patient presents from a local [place] [facility]. He reports he has had a cough with some associated shortness of breath for the last few weeks. He reports today his cough has worsened He had some left-sided chest pain during coughing episode with prompted him to seek care Currently he has no chest pain or shortness of breath. He still has an intermittent dry cough He denies any fevers, chills, leg swelling He denies any known sick contacts Related Data Home Medications ?Medication ?Instructions ?Recorded ?Confirmed atorvastatin 20 mg tablet 20 mg PO DAILY 10/11/20 01/12/24 olanzapine 20 mg tablet 20 mg PO BEDTIME 10/11/20 01/12/24 albuterol sulfate 90 mcg/actuation 2 puff inhalation Q6H PRN Wheezing 12/20/20 01/12/24 aerosol inhaler cetirizine 10 mg tablet 10 mg PO BEDTIME 12/20/20 01/12/24 fluticasone propionate 50 2 spray intranasal DAILY 12/20/20 01/12/24 mcg/actuation nasal spray,suspension gabapentin 300 mg capsule 300 mg PO TID 11/13/23 01/12/24 acetaminophen 325 mg tablet 650 mg PO Q8H PRN pain 12/08/23 01/12/24 camphor 3.1 %-methyl salicylate 10 3.1 patch topical BID 12/08/23 01/12/24 %-menthol 6 % topical patch (Salonpas) carvedilol 12.5 mg tablet 12.5 mg PO BID 12/08/23 01/12/24 cholecalciferol (vitamin D3) 50 50 mcg PO DAILY 12/08/23 01/12/24 mcg (2,000 unit) capsule ferrous sulfate 325 mg (65 mg 325 mg PO 3XW 12/08/23 01/12/24 iron) tablet finasteride 5 mg tablet 5 mg PO DAILY 12/08/23 01/12/24 melatonin 5 mg tablet 10 mg PO BEDTIME PRN insomnia 12/08/23 01/12/24 prednisolone acetate 1 % eye 1 drp ophthalmic (eye) DAILY 12/08/23 01/12/24 drops,suspension tamsulosin 0.4 mg capsule 0.8 mg PO DAILY 12/08/23 01/12/24 fluticasone furoate 200 1 ea inhalation QAM 12/29/23 01/12/24 mcg-vilanterol 25 mcg/dose inhalation powder (Breo Ellipta) Previous Rx's ?Medication ?Instructions ?Recorded omeprazole 20 mg capsule,delayed 20 mg PO BID 90 days #180 caps 12/14/23 release dexamethasone 4 mg tablet 4 mg PO BID #60 tabs 01/01/24 ondansetron 8 mg disintegrating 8 mg PO Q8H #60 tabs 01/01/24 tablet sennosides 8.6 mg tablet (Senokot) 8.6 mg PO BEDTIME Constipation #30 01/01/24 tabs azithromycin 250 mg tablet 250 mg PO DAILY 4 days #4 tabs 02/20/24 cefuroxime axetil 500 mg tablet 500 mg PO Q12H #14 tabs 02/20/24 Allergies Allergy/AdvReac Type Severity Reaction Status Date / Time Penicillins [PENICILLINS] Allergy Unknown EYES GET Verified 02/20/24 16:36 RED latex Allergy Unknown Verified 02/20/24 16:36 Review of Systems Constitutional: Constitutional: Denies body ache(s), Denies chills, Denies fever(s) and Denies headache(s) Eyes: Eyes: Denies blurry vision ENT: Denies vertigo and Denies headache(s) Cardiovascular: Cardiovascular: Reports dyspnea Respiratory: Respiratory: Reports chest congestion, Reports cough, Reports pain with cough and Reports dyspnea Gastrointestinal: Gastrointestinal: Denies abdominal pain, Denies nausea and Denies vomiting Musculoskeletal: Musculoskeletal: Denies back pain and Denies myalgias Integumentary/Breasts: Skin/Breast: Denies rash Neurologic: Denies vertigo and Denies headache(s) [facility] Past Medical History Medical History (Updated 02/20/24 @ 18:41 by Nigel Winkler) Tremor Mild intermittent asthma Coronary artery disease Schizoaffective disorder HTN (hypertension) Heme + stool Surgical History History of esophagogastroduodenoscopy (EGD) Hx of colonoscopy Family History Family History Unknown No problems noted. Mother Colon cancer Social History Social History Household Members: None Household Members Other:: Patient [place] Housing: Apartment [place] Other[place] [facility] Are you a primary acute care occupational therapist to a significant other at home: No Do you presently have visiting nurse or other home services: No Alcohol intake: never Patient Tobacco Use Status: Former Tobacco user Smoked in Last 30 Days: No Use of substances other than those prescribed or required for medical reasons: No Advance Directives: No Advance Directives Information Provided: No service: No Current occupational status: disabled Physical Exam Vital Signs: Vital Signs: Last Vital Signs Temp 99.2 F 02/20/24 18:23 Pulse 98 02/20/24 18:23 Resp 20 02/20/24 18:23 BP 100/61 02/20/24 18:23 Pulse Ox 92 02/20/24 18:23 O2 Del Method Room Air 02/20/24 18:23 BMI result Body Mass Index 27.7 Const: General: healthy appearing, comfortable, no acute distress, alert and awake Nutritional Appearance: well nourished Orientation/consciousness: patient oriented x3 HEENT: Head: Yes normocephalic and Yes atraumatic Throat: Yes posterior oropharynx normal Eyes: Eyelids: Yes eyelids normal Conjunctivae: conjunctivae normal Sclerae: sclerae normal Corneas: corneas normal Pupils: Equal, round and reactive pupils present EOM: EOMs intact bilaterally Neck: Neck: Yes full ROM Chest: Other: Tender to palpation of the left chest wall Chest palpation & inspection: no crepitus Resp: Effort & Inspection: normal respiratory effort, able to speak in complete sentences, no audible wheezes and not labored Auscultation: clear to auscultation bilaterally Cardio: Rate: regular rate Rhythm: regular rhythm GI: Inspection: No distended Palpation (GI): Soft to palpation, not firm, nontender, no guarding and not rigid Skin: General skin exam: elasticity normal Neuro: Other: Diffuse resting tremor General: patient oriented x3 Cranial nerves: Yes Equal, round and reactive pupils present and Yes Bilaterally intact EOM present Cognition (Neuro): normal cognition Course Reevaluation(s) Reevaluation #1: Patient's chest x-ray shows concern for pneumonia, he is not septic. An ambulation trial was performed in the patient's oxygen saturation was 95-96%. He is stable for discharge. Given that his symptoms have been present for a few weeks, he likely has mycoplasma pneumonia so he will certainly be covered with azithromycin but will also be covered with cefuroxime for community-acquired pneumonia Time: 18:38 Medical Decision Making Medical Decision Making [facility] Narrative: 73-year-old male past medical history as documented above presents for evaluation of cough of the chest pain. Plan for EKG due to his history of coronary artery disease, diabetes, hypertension. His chest pain does some pleuritic in nature in his reproducible on palpation, less likely to be ACS. We will get basic labs, chest x-ray and a viral swab as well. Differential Diagnosis Differential Diagnoses: The differential diagnosis associated with the presentation includes Chest pain Chest wall pain Costochondritis GERD Pneumonia Bronchitis ACS less likely Admission/Observation Consideration of admission/observation: Escalation of care including admission/observation considered Consider admission due to thrombocytopenia and pneumonia. However the patient is not septic or hypoxic. He is not vomiting, he can take oral antibiotics Lab Data [facility] Lab Attestation statement: I reviewed the patient's lab results. Thrombocytopenia consistent with his baseline. There is no significant electrolyte abnormalities. 02/20/24 17:34 02/20/24 17:34 Labs: Lab Results 02/20/24 Range/Units 17:34 WBC 2.8 L (4.8-10.8) X10*3/uL RBC 4.43 L (4.60-5.80) X10*6/uL Hgb 11.6 L (14.0-18.0) g/dl Hct 35.9 L (42.0-52.0) % MCV 81.0 (80.0-98.0) fL MCH 26.2 L (27.0-33.0) pg MCHC 32.3 (31.0-36.0) g/dl RDW 15.2 (11.0-16.0) % Plt Count 95 L (160-400) X10*3/uL MPV 10.0 (9.4-12.4) fL Immature Gran % (Auto) 0.7 H (0.0-0.4) % Neut % (Auto) 57.7 (45-73) % Lymph % (Auto) 14.1 L (20-40) % [place] % (Auto) 26.1 H (2-11) % Eos % (Auto) 0.7 (0-4) % Baso % (Auto) 0.7 (0-2) % Lymph # (Auto) 0.4 L (1.2-4.9) X10*3/uL [place] # (Auto) 0.7 (0.1-1.2) X10*3/uL Eos # (Auto) 0.0 (0.0-0.4) X10*3/uL Baso # (Auto) 0.0 (0.0-0.2) X10*3/uL Abs Immat Gran (auto) 0.02 (0.00-0.03) X10*3/uL Absolute Neuts (auto) 1.6 L (2.0-8.3) x10*3/uL Absolute Nucleated RBC 0.000 (0.0-0.012) X10*3/uL Nucleated RBC % (auto) 0.0 (0.0-0.2) /100WBC Smear Tech's Comments VERIFIED Sodium 142 (135-145) mmol/L Potassium 3.9 (3.3-5.1) mmol/L Chloride 108 (96-108) mmol/L Carbon Dioxide 25 (22-29) mmol/L Anion Gap 13 (12-20) BUN 12 (9-16) mg/dL Creatinine 0.75 (0.5-1.4) mg/dL Estim Creat Clear Calc 91.7 Estimated GFR > 60 Random Glucose 120 H (60-115) mg/dL Calcium 8.4 (8.4-10.2) mg/dL Total Bilirubin 1.1 H (0.0-1.0) mg/dL AST 35 (5-37) U/L ALT 28 (0-40) U/L Alkaline Phosphatase 90 (39-117) U/L Troponin I High Sens 4.1 (<3.5-35.0) ng/L Total Protein 5.6 L (6.5-8.0) g/dL Albumin 3.1 L (3.5-5.0) g/dL Lipase 29 (8-78) U/L Influenza Type A (PCR) NEGATIVE (Negative) Influenza Type B (PCR) NEGATIVE (Negative) RSV RNA Qual (PCR) NEGATIVE (Negative) SARS-CoV-2 RNA (RT-PCR) NEGATIVE (Negative) Independent Interpretation I performed an independent interpretation of an: EKG (Sinus tachycardia rate of [address] segment elevations or depressions) and Plain X-Ray Interpretation: Agree with Radiology interpretation Radiology Impression Discussion of test interpretation with radiology: I have reviewed the radiologist's reading. Radiologist Impression: FINDINGS: Patchy airspace opacities concerning for pneumonia in the left mid and upper lung. There are also subtle density at the peripheral right lung base and medial right upper lobe. No dense consolidation. No pleural effusion. Large hiatal hernia. Central port catheter tip over right atrium. XR/XR chest 2V IMPRESSION: Patchy airspace opacities concerning for pneumonia. Electronically signed by: Gurvinder Rey MD 02/20/2024 05:55 PM [facility] Prescription Management I considered prescription management with: Antibiotic Chronic Conditions Patient?s care impacted by: Diabetes and Cancer Social Determinants Patient?s care significantly limited by Social Determinants of Health including: Other Social Determinant of Health (Patient presents from [place] [facility]) Discharge Plan Discharge Clinical Impression: Community acquired pneumonia Patient Disposition: Home, Self-Care Instructions: Community Acquired Pneumonia (ED) Additional Instructions: Your x-ray shows concern for pneumonia. Take both antibiotics as prescribed for 1 week. Follow-up with your primary doctor, return for new or worsening symptoms Prescriptions: New azithromycin 250 mg tablet 250 mg PO DAILY 4 Days Qty: 4 0RF Rx Instructions: start on day 2 of therapy cefuroxime axetil 500 mg tablet 500 mg PO Q12H Qty: 14 0RF No Action omeprazole 20 mg capsule,delayed release(DR/EC) 20 mg PO BID 90 Days Qty: 180 1RF cetirizine 10 mg Tablet 10 mg PO BEDTIME albuterol sulfate 90 mcg/actuation Hfa Aerosol Inhaler 2 puff INHALATION Q6H PRN (Reason: Wheezing) fluticasone propionate 50 mcg/actuation [place],Suspension 2 spray INTRANASAL DAILY gabapentin 300 mg capsule 300 mg PO TID ondansetron 8 mg Tablet,Disintegrating 8 mg PO Q8H Qty: 60 3RF dexamethasone 4 mg Tablet 4 mg PO BID Qty: 60 3RF Rx Instructions: Take 4 mg b.i.d. days 2 and 3 of chemotherapy Q 14 days. sennosides [Senokot] 8.6 mg Tablet 8.6 mg PO BEDTIME Qty: 30 3RF fluticasone furoate-vilanterol [Breo Ellipta] 200-25 mcg/dose blister with device 1 ea inhalation QAM atorvastatin 20 mg tablet 20 mg PO DAILY olanzapine 20 mg tablet 20 mg PO BEDTIME tamsulosin 0.4 mg capsule 0.8 mg PO DAILY prednisolone acetate 1 % drops,suspension 1 drp ophthalmic (eye) DAILY ferrous sulfate 325 mg (65 mg iron) tablet 325 mg PO 3XW melatonin 5 mg tablet 10 mg PO BEDTIME PRN (Reason: insomnia) finasteride 5 mg tablet 5 mg PO DAILY acetaminophen 325 mg tablet 650 mg PO Q8H PRN (Reason: pain) cholecalciferol (vitamin D3) 50 mcg (2,000 unit) capsule 50 mcg PO DAILY carvedilol 12.5 mg tablet 12.5 mg PO BID Salonpas 3.1-10-6 % adhesive patch,medicated 3.1 patch topical BID Print Language: Turkish
[2024-02-20 17:52] LABS: Platelet Count 95 X10*3/uL (160-400)
[2024-02-20 17:55] LABS: Alanine Aminotransferase 28 U/L (0-40); Albumin Level 3.1 g/dL (3.5-5.0); Alkaline Phosphatase 90 U/L (39-117); Anion Gap 13 (12-20); Aspartate Amino Transferase 35 U/L (5-37); Bilirubin Total 1.1 mg/dL (0.0-1.0); Blood Urea Nitrogen 12 mg/dL (9-16); Calcium 8.4 mg/dL (8.4-10.2); Carbon Dioxide 25 mmol/L (22-29); Chloride 108 mmol/L (96-108); Creatinine Clr Calc Pharmacy 91.7; Estimated Glomerular Filt Rate > 60; Glucose Random 120 mg/dL (60-115); Lipase 29 U/L (8-78); Potassium 3.9 mmol/L (3.3-5.1); Sodium 142 mmol/L (135-145); Total Protein 5.6 g/dL (6.5-8.0)
[2024-02-20 18:02] LABS: Troponin-I High Sensitivity 4.1 ng/L (<3.5-35.0)
[2024-02-20 18:07] VITALS: BP 94/57; PULSE 90; RESP 17; TEMP 37.4; O2SAT 92
[2024-02-20 18:12] LABS: SLIDE REVIEW VERIFIED
[2024-02-20 18:16] LABS: Influenza A PCR NEGATIVE (Negative); Influenza B PCR NEGATIVE (Negative); Resp Syncy Virus RNA Qual PCR NEGATIVE (Negative); SARS COV2 PCR INHOUSE NEGATIVE (Negative)
[2024-02-20 18:23] VITALS: BP 100/61; PULSE 98; RESP 20; TEMP 37.3; O2SAT 92
--- NOTE | 2024-02-20 18:31 | PC.NURSE ---
Patient ambulation trial completed. Oxygen saturations maintained 95-96% on RA. Patient denies any complaints.
[2024-02-20] MEDS: Azithromycin 500 MG TABLET PO (18:44)
[2024-02-20] MEDS: cefuroxime axetiL 500 MG TABLET PO (18:44)
--- NOTE | 2024-02-20 18:49 | PC.NURSE ---
karol[employer] group terminal supervisor extermination inspector phoned for status on patient and for discharge planning and pickup. Material Stress Tester stated he will have to call main house and get back to me.
[2024-02-20 19:43] VITALS: BP 100/61; PULSE 98; RESP 20; TEMP 37.3; O2SAT 92
== END 2024-02-20 19:44 | disposition home or self-care (01) ==
PROVIDERS: Physician Assistant; Emergency Provider Emergency Medicine Emergency Medical Services
DX: J18.8 Other pneumonia, unspecified organism (principal); Z03.818 Encounter for observation for suspected exposure to other biological agents ruled out; R06.00 Dyspnea, unspecified; E11.9 Type 2 diabetes mellitus without complications; I10 Essential (primary) hypertension; J45.909 Unspecified asthma, uncomplicated; Z87.891 Personal history of nicotine dependence; Z79.02 Long term (current) use of antithrombotics/antiplatelets; Z79.899 Other long term (current) drug therapy
CPT/HCPCS: 0241U; 71046; 80053; 83690; 84484; 85025; 93005; 99283; 99285

== ENCOUNTER → 2024-02-20 16:30 | Outpatient (BNV) | payer MEDICARE, MEDICAID, SELFPAY | PROVIDERS: Emergency Provider Emergency Medicine Emergency Medical Services; Visit Provider Internal Medicine | DX: R00.0 Tachycardia, unspecified (principal) | CPT/HCPCS: 93010 ==

== ENCOUNTER 2024-02-26 11:35 | Outpatient (REF) | payer MEDICARE, MEDICAID, SELFPAY ==
[2024-02-26 13:11] LABS: MANUAL DIFF FLAG NO
[2024-02-26 13:20] LABS: Basophils Absolute Auto 0.1 X10*3/uL (0.0-0.2); Basophils Percent Auto 0.9 % (0-2); Eosinophils Percent Auto 0.7 % (0-4); Hematocrit 37.3 % (42.0-52.0); Imm Gran Abs Auto 0.13 X10*3/uL (0.00-0.03); Imm Gran Pct Auto 2.4 % (0.0-0.4); Lymphocytes Absolute Auto 0.5 X10*3/uL (1.2-4.9); Mean Corpuscular HGB Conc 32.2 g/dl (31.0-36.0); Mean Corpuscular Hemoglobin 26.7 pg (27.0-33.0); Mean Corpuscular Volume 82.9 fL (80.0-98.0); Mean Platelet Volume 9.1 fL (9.4-12.4); Monocytes Absolute Auto 0.9 X10*3/uL (0.1-1.2); Monocytes Percent Auto 16.3 % (2-11); Neutrophils Absolute Auto 3.9 x10*3/uL (2.0-8.3); Neutrophils Percent Auto 70.7 % (45-73); Platelet Count 265 X10*3/uL (160-400); Red Cell Distribution Width 15.4 % (11.0-16.0); White Blood Count 5.5 X10*3/uL (4.8-10.8)
[2024-02-26 13:53] LABS: Alanine Aminotransferase 54 U/L (0-40); Albumin Level 2.9 g/dL (3.5-5.0); Alkaline Phosphatase 114 U/L (39-117); Anion Gap 10 (12-20); Aspartate Amino Transferase 45 U/L (5-37); Bilirubin Direct 0.2 mg/dL (0.0-0.5); Bilirubin Total 0.5 mg/dL (0.0-1.0); Blood Urea Nitrogen 9 mg/dL (9-16); Calcium 8.3 mg/dL (8.4-10.2); Carbon Dioxide 29 mmol/L (22-29); Chloride 107 mmol/L (96-108); Estimated Glomerular Filt Rate > 60; Glucose Random 158 mg/dL (60-115); Potassium 4.1 mmol/L (3.3-5.1); Sodium 142 mmol/L (135-145); Total Protein 6.1 g/dL (6.5-8.0)
--- OUTSIDE RECORDS SUMMARY | 2024-03-02 08:00 | XMS_ITS | Patient Health Record ---
Author Organization [facility] Address [address] [place] [address] Care Team Providers Care Sharepoint Specialist Name Role Phone Kristian cornelius, Xu Primary Care Prov ider Unavailable Jose Padilla Unavailable [phone] Rosemary Shah Unavailable Unavailable REASON FOR REFERRAL No Information SOCIAL HISTORY Sex Assigned At : Social History Observation Description Sex Assigned At Unknown Encounters Encounter Location Date Provider Diagnosis [facility] [address] [place] [address] 12/01/2023 Jose Padilla PLAN OF TREATMENT No Information Insurance Providers Payer Name Payer Address Payer Phone Subscriber Number Group Number Insured Name Patient Relationship to Insured Coverage Start Date Coverage End Date MEDICARE OF [place] [address] [place] [id number] RAJAN CRAIG Self - patient is the insured MEDICAID OF [facility] [address] [place] [address] [id number] RAJAN CRAIG Self - patient is the insured
--- OUTSIDE RECORDS SUMMARY | 2024-03-02 08:00 | XMS_ITS ---
Author Organization [facility] Address [address] [place] [phone] Care Team Providers Care Recreation Facilities Supervisor Name Role Phone Kristian cornelius, Xu Primary Care Prov ider Unavailable Jose Padilla Unavailable [phone] Rosemary Shah Unavailable Unavailable Encounters Encounter Location Date Provider Diagnosis [facility] [address] [place] [phone] 12/01/2023 Jose Padilla PLAN OF TREATMENT No Information
== END 2024-02-26 11:36 | disposition home or self-care (01) ==
LOC: HO.HMGCLDS 11:35
PROVIDERS: PCP Family Medicine; Visit Provider Internal Medicine Medical Oncology
DX: C16.9 Malignant neoplasm of stomach, unspecified (principal)
CPT/HCPCS: 36415; 80053; 82248; 85025

== ENCOUNTER 2024-03-14 11:45 | Outpatient (REF) | payer MEDICARE, MEDICAID, SELFPAY ==
--- OUTSIDE RECORDS SUMMARY | 2024-03-14 11:47 | XMS_ITS ---
Author Organization [facility] Address [address] [place] [phone] Care Team Providers Care Clock And Watch Assembler Name Role Phone Kristian cornelius, Xu Primary Care Prov ider Unavailable Jose Padilla Unavailable [phone] Rosemary Shah Unavailable Unavailable Encounters Encounter Location Date Provider Diagnosis [facility] [address] [place] [phone] 12/01/2023 Jose Padilla PLAN OF TREATMENT No Information
--- OUTSIDE RECORDS SUMMARY | 2024-03-14 11:48 | XMS_ITS | Patient Health Record ---
Author Organization [facility] Address [address] [place] [address] Care Team Providers Care Lockstitch Waistband Setter Name Role Phone Kristian cornelius, Xu Primary Care Prov ider Unavailable Jose Padilla Unavailable [phone] Rosemary Shah Unavailable Unavailable REASON FOR REFERRAL No Information SOCIAL HISTORY Sex Assigned At : Social History Observation Description Sex Assigned At Unknown Encounters Encounter Location Date Provider Diagnosis [facility] [address] [place] [address] 12/01/2023 Jose Padilla PLAN OF TREATMENT No Information Insurance Providers Payer Name Payer Address Payer Phone Subscriber Number Group Number Insured Name Patient Relationship to Insured Coverage Start Date Coverage End Date MEDICARE OF [place] [address] [place] [address] [phone] [id number] RAJAN CRAIG Self - patient is the insured MEDICAID OF [facility] [address] [place] [address] [id number] RAJAN CRAIG Self - patient is the insured
[2024-03-14 13:40] LABS: MANUAL DIFF FLAG NO
[2024-03-14 13:43] LABS: Basophils Percent Auto 0.8 % (0-2); Eosinophils Absolute Auto 0.1 X10*3/uL (0.0-0.4); Eosinophils Percent Auto 2.6 % (0-4); Hematocrit 39.5 % (42.0-52.0); Hemoglobin 12.2 g/dl (14.0-18.0); Imm Gran Abs Auto 0.02 X10*3/uL (0.00-0.03); Imm Gran Pct Auto 0.4 % (0.0-0.4); Lymphocytes Absolute Auto 0.6 X10*3/uL (1.2-4.9); Lymphocytes Percent Auto 10.3 % (20-40); Mean Corpuscular HGB Conc 30.9 g/dl (31.0-36.0); Mean Corpuscular Hemoglobin 26.7 pg (27.0-33.0); Mean Corpuscular Volume 86.4 fL (80.0-98.0); Mean Platelet Volume 9.7 fL (9.4-12.4); Monocytes Absolute Auto 0.8 X10*3/uL (0.1-1.2); Monocytes Percent Auto 14.3 % (2-11); Neutrophils Absolute Auto 3.8 x10*3/uL (2.0-8.3); Neutrophils Percent Auto 71.6 % (45-73); Platelet Count 158 X10*3/uL (160-400); Red Blood Count 4.57 X10*6/uL (4.60-5.80); Red Cell Distribution Width 17.2 % (11.0-16.0); White Blood Count 5.3 X10*3/uL (4.8-10.8)
[2024-03-14 14:37] LABS: Anion Gap 9 (12-20)
[2024-03-14 14:49] LABS: Alanine Aminotransferase 13 U/L (0-40); Albumin Level 3.4 g/dL (3.5-5.0); Alkaline Phosphatase 121 U/L (39-117); Aspartate Amino Transferase 20 U/L (5-37); Bilirubin Direct 0.2 mg/dL (0.0-0.5); Bilirubin Total 0.5 mg/dL (0.0-1.0); Blood Urea Nitrogen 10 mg/dL (9-16); Calcium 8.4 mg/dL (8.4-10.2); Carbon Dioxide 31 mmol/L (22-29); Chloride 108 mmol/L (96-108); Estimated Glomerular Filt Rate > 60; Glucose Random 111 mg/dL (60-115); Potassium 3.7 mmol/L (3.3-5.1); Sodium 144 mmol/L (135-145); Total Protein 6.1 g/dL (6.5-8.0)
[2024-03-15 09:54] LABS: Thyroid Stimulating Hormone 1.89 uIU/mL (0.32-4.0)
== END 2024-03-14 11:46 | disposition home or self-care (01) ==
LOC: HO.HMGCLDS 11:45
PROVIDERS: PCP Family Medicine; Visit Provider Internal Medicine Medical Oncology
DX: C16.9 Malignant neoplasm of stomach, unspecified (principal)
CPT/HCPCS: 36415; 80053; 82248; 84443; 85025

== ENCOUNTER 2024-03-25 11:38 | Outpatient (REF) | payer MEDICARE, MEDICAID, SELFPAY ==
[2024-03-25 13:11] LABS: MANUAL DIFF FLAG NO
[2024-03-25 13:15] LABS: Basophils Percent Auto 0.2 % (0-2); Eosinophils Percent Auto 0.9 % (0-4); Hematocrit 35.4 % (42.0-52.0); Hemoglobin 11.2 g/dl (14.0-18.0); Imm Gran Abs Auto 0.02 X10*3/uL (0.00-0.03); Imm Gran Pct Auto 0.5 % (0.0-0.4); Lymphocytes Absolute Auto 0.4 X10*3/uL (1.2-4.9); Lymphocytes Percent Auto 8.9 % (20-40); Mean Corpuscular HGB Conc 31.6 g/dl (31.0-36.0); Mean Corpuscular Hemoglobin 26.8 pg (27.0-33.0); Mean Corpuscular Volume 84.7 fL (80.0-98.0); Mean Platelet Volume 10.2 fL (9.4-12.4); Monocytes Absolute Auto 0.7 X10*3/uL (0.1-1.2); Monocytes Percent Auto 15.6 % (2-11); Neutrophils Absolute Auto 3.2 x10*3/uL (2.0-8.3); Neutrophils Percent Auto 73.9 % (45-73); Platelet Count 128 X10*3/uL (160-400); Red Blood Count 4.18 X10*6/uL (4.60-5.80); Red Cell Distribution Width 17.1 % (11.0-16.0); White Blood Count 4.3 X10*3/uL (4.8-10.8)
--- OUTSIDE RECORDS SUMMARY | 2024-03-25 13:25 | XMS_ITS | Patient Health Record ---
Author Organization [facility] Address [address] [place] [address] Care Team Providers Care Panel Beater Name Role Phone Kristian cornelius, Xu Primary Care Prov ider Unavailable Jose Padilla Unavailable [phone] Rosemary Shah Unavailable Unavailable REASON FOR REFERRAL No Information SOCIAL HISTORY Sex Assigned At : Social History Observation Description Sex Assigned At Unknown Encounters Encounter Location Date Provider Diagnosis [facility] [address] [place] [address] 12/01/2023 Jose Padilla PLAN OF TREATMENT No Information Insurance Providers Payer Name Payer Address Payer Phone Subscriber Number Group Number Insured Name Patient Relationship to Insured Coverage Start Date Coverage End Date MEDICARE OF [place] [address] [place] [address] [phone] [id number] RAJAN CRAIG Self - patient is the insured MEDICAID OF [facility] [address] [place] [address] [id number] RAJAN CRAIG Self - patient is the insured
[2024-03-25 14:11] LABS: Alanine Aminotransferase 20 U/L (0-40); Albumin Level 3.1 g/dL (3.5-5.0); Alkaline Phosphatase 90 U/L (39-117); Anion Gap 11 (12-20); Aspartate Amino Transferase 28 U/L (5-37); Bilirubin Direct 0.2 mg/dL (0.0-0.5); Bilirubin Total 0.4 mg/dL (0.0-1.0); Blood Urea Nitrogen 10 mg/dL (9-16); Calcium 8.3 mg/dL (8.4-10.2); Carbon Dioxide 25 mmol/L (22-29); Chloride 108 mmol/L (96-108); Estimated Glomerular Filt Rate > 60; Glucose Random 139 mg/dL (60-115); Potassium 3.9 mmol/L (3.3-5.1); Sodium 140 mmol/L (135-145); Total Protein 5.7 g/dL (6.5-8.0)
== END 2024-03-25 11:39 | disposition home or self-care (01) ==
LOC: HO.HMGCLDS 11:38
PROVIDERS: PCP Family Medicine; Visit Provider Internal Medicine Medical Oncology
DX: C16.9 Malignant neoplasm of stomach, unspecified (principal)
CPT/HCPCS: 36415; 80053; 82248; 85025

== ENCOUNTER 2024-04-05 13:02 | Outpatient (REF) | payer MEDICARE, MEDICAID, SELFPAY ==
--- NOTE | ~2024-04-05 | CT_ITS ---
CLINICAL HISTORY: Gastric CA, S P 6 cycles of chemo, restaging CT abdomen and pelvis with contrast Comparison: CT/OT - ABD PELVIS WO CONT [id number] - 06/19/11 20:53 EDT Findings: No consolidation or effusion. Large hiatal hernia containing the majority of the stomach, increased from prior. Prominent abnormal thickening of the gastric antrum and pylorus with significant surrounding stranding. No pneumatosis. No bowel obstruction. There is diverticulosis with abnormal stranding about the distal descending and proximal sigmoid colon. Colitis versus acute diverticulitis. No free air or abscess. The liver, spleen, adrenal glands and pancreas demonstrate no acute process. The gallbladder is decompressed and contains multiple stones. Kidneys demonstrate multiple cysts. No definite suspicious lesion. The bladder is decompressed and mildly thick-walled. The prostate gland is enlarged. Osseous structures demonstrate innumerable diffuse sclerotic metastatic lesions. Impression: There is prominent abnormal thickening and surrounding stranding involving the gastric antrum and pylorus. No recent comparison studies. Given the stated history, this may be the region of malignancy or reflect pronounced gastritis. There is no evidence of perforation. There is a small volume of surrounding free fluid. There is also abnormal stranding about a thickened segment distal descending colon in the region of diverticulosis. Diverticulitis versus colitis. Innumerable diffuse sclerotic bony metastatic lesions. This document has been electronically signed by: Carmelo Vu MD on 04/08/2024 11:36:08
--- NOTE | ~2024-04-05 | CT_ITS ---
CLINICAL HISTORY: Gastric carcinoma s p 6 cycles of chemo, restaging CT chest with contrast Comparison: None Findings: Significant mass effect upon the heart related to a large hiatal hernia containing majority of stomach. Pronounced thickening involving the gastric antrum and pylorus with significant narrowing of the pylorus. Surrounding stranding noted. Moderately severe atherosclerotic disease of the coronary arteries. No definite mediastinal adenopathy. Lungs exhibit no effusion or pneumothorax. There is bandlike consolidation within the lingula, soft tissue thickening surrounding the airways. Tree-in-bud densities within the right middle lobe with small irregular nodules. Ill-defined and tree-in-bud nodular density within the posterior right upper lobe. Somewhat discrete 10 mm right upper lobe nodule on axial 146. Innumerable scattered 2 and 3 mm nodules within the right lung with additional tree-in-bud densities present within the left lung. Diffuse metastatic disease throughout the osseous structures. Partially healed right lower rib fractures. Impression: Nonspecific findings in the absence of comparison imaging. There are diffuse abnormalities throughout both lungs with regions tree-in-bud density, bandlike consolidation in discrete nodules. Favor infection for this overall appearance however given the presence of malignancy, some of these nodules could certainly reflect metastatic disease. Close interval follow-up and correlation with any recent comparison imaging recommended. This document has been electronically signed by: Carmelo Vu MD on 04/08/2024 11:44:52
--- OUTSIDE RECORDS SUMMARY | 2024-04-05 15:17 | XMS_ITS ---
Author Organization [facility] Address [address] [place] [address] Care Team Providers Care Capacity Planning Manager Name Role Phone Kristian cornelius, Xu Primary Care Prov ider Unavailable Jose Padilla Unavailable [phone] Rosemary Shah Unavailable Unavailable Encounters Encounter Location Date Provider Diagnosis [facility] [address] [place] [phone] 12/01/2023 Jose Padilla PLAN OF TREATMENT No Information
--- OUTSIDE RECORDS SUMMARY | 2024-04-05 15:17 | XMS_ITS | Patient Health Record ---
Author Organization [facility] Address [address] [place] [address] Care Team Providers Care Derrick Operator Name Role Phone Kristian cornelius, Xu Primary Care Prov ider Unavailable Jose Padilla Unavailable [phone] Rosemary Shah Unavailable Unavailable REASON FOR REFERRAL No Information SOCIAL HISTORY Sex Assigned At : Social History Observation Description Sex Assigned At Unknown Encounters Encounter Location Date Provider Diagnosis [facility] [address] [place] [address] 12/01/2023 Jose Padilla PLAN OF TREATMENT No Information Insurance Providers Payer Name Payer Address Payer Phone Subscriber Number Group Number Insured Name Patient Relationship to Insured Coverage Start Date Coverage End Date MEDICARE OF [place] [address] [place] BIRCH [id number] [phone] [id number] RAJAN CRAIG Self - patient is the insured MEDICAID OF [facility] [employer] [facility] [address] [place] [address] [id number] RAJAN CRAIG Self - patient is the insured
[2024-04-05] MEDS: Barium Sulfate Oral (Berry) 450 ML ORAL.SUSP 900 ML PO (16:18)
[2024-04-05] MEDS: iohexoL 350 MG/ML 100 ML INFUS..BTL 85 ML IV (16:18)
== END 2024-04-05 13:03 | disposition home or self-care (01) ==
LOC: HO.CT 13:02
PROVIDERS: PCP Family Medicine; Visit Provider Internal Medicine Medical Oncology
DX: C16.9 Malignant neoplasm of stomach, unspecified (principal)
CPT/HCPCS: 71260; 74177; Q9967

== ENCOUNTER → 2024-04-05 13:04 | Outpatient (BNV) | payer MEDICARE, MEDICAID, SELFPAY | PROVIDERS: PCP Family Medicine; Visit Provider Radiology Vascular & Interventional Radiology | DX: R91.8 Other nonspecific abnormal finding of lung field (principal); K31.89 Other diseases of stomach and duodenum; N28.1 Cyst of kidney, acquired | CPT/HCPCS: 71260; 74177 ==

== ENCOUNTER 2024-04-22 11:25 | Outpatient (REF) | payer MEDICARE, MEDICAID, SELFPAY ==
--- OUTSIDE RECORDS SUMMARY | 2024-04-22 12:11 | XMS_ITS ---
Author Organization [facility] Address Unknown Allergies, Adverse Reactions, Alerts Substance Reaction Status Noted Date Resolved Date Penicillins active 08/27/2023 Latex active 08/27/2023 Problems Problem Status Start Date End Date FRACTURE OF ONE RIB, RIGHT S RAYMUNDO, SUBSEQUENT ENCOUNTER FOR FRACTURE WITH ROUTINE HEALING (Primary) (S22.31XD - ICD-10-CM) ACTIVE 08/27/2023 IRON DEFICIENCY ANEMIA, UNSPECIFIED (D50.9 - ICD-10-CM ) ACTIVE 09/01/2023 MUSCLE WEAKNESS (GENERALIZED) (M62.81 - ICD-10-CM) ACT MERRILL 08/27/2023 UNSTEADINESS ON FEET (R26.81 - ICD-10-CM) ACTIVE 08/27/2023 OTHER ASTHMA (J45.998 - ICD-10-CM) ACTIVE 2023 BENIGN PROSTATIC HYPERPLASIA WITHOUT LOWER URINARY TRACT SYMPTOMS (N40.0 - ICD-10-CM) ACTIVE 08/27/2023 BIPOLAR DISORDER, UNSPECIFIED (F31.9 - ICD-10-CM) ACTI VE 08/27/2023 HYPERLIPIDEMIA, UNSPECIFIED (E78.5 - ICD-10-CM) ACTIVE 08/27/2023 ESSENTIAL (PRIMARY) HYPERTENSION (I10 - ICD-10-CM) ACT MERRILL 08/27/2023 TREMOR, UNSPECIFIED (R25.1 - ICD-10-CM) ACTIVE 0 08/27/2023 FALL IN (INTO) SHOWER OR EMP TY BATHTUB, SUBSEQUENT ENCOUNTER (W18.2XXD - ICD-10-CM) ACTIVE 08/27/2023 SYNCOPE AND COLLAPSE (R55 - ICD-10-CM) ACTIVE HYPOXEMIA (R09.02 - ICD-10-CM) ACTIVE 08/27/2023 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 with home health services [facility] 08/27/2023 10:00 pm EDT - 09/17/2023 02:21 pm EDT Immunizations Vaccine Date TB 1 Step Mantoux (PPD) 09/14/2023 06:00 am EDT Zostavax(Shingles) 07/10/2021 12:00 am EDT Zostavax(Shingles) 05/09/2021 12:00 am EST Pneumococcal Conjugate Vaccine (PCV13) 0 04/16/2018 12:00 am EST SARS-COV-2 (COVID-19) 05/25/2023 12:00 a m EST SARS-COV-2 (COVID-19) 06/21/2020 12:00 a m EDT SARS-COV-2 (COVID-19 BOOSTER) 12/16/2021 12:00 am EDT Tdap 06/23/2016 12:00 am EDT pneumococcal, unspecified formulation 12:00 am EDT COVID-19, mRNA, LNP-S, PF, 30 mcg/0.3 mL dose, zoran-sucrose 07/20/2023 12:00 am EDT Social History
--- OUTSIDE RECORDS SUMMARY | 2024-04-22 12:11 | XMS_ITS | Encounter Summary ---
Author Organization [employer] Address [address] [place] [address] Care Team Providers Care Sock Lining Stitcher Name Role Phone Madonna Yousif MD Primary Care Provider [phone] Reason for Visit * Reason Onset Date Comments Med Refill 09/02/2022 Encounter Details Date Type Department Care Team ([facility] st Contact Info) Description 09/02/2022 Telephone [facility] [address] [place] [address] Madonna Yousif MD [address] [place] [address] Med Refill Social History Tobacco Use Types Packs/Day Years Used Date Smoking Tobacco: Never Passive Smoke Exposure: Never Smokeless Tobacco: Never Alcohol Use Standard Drinks/Week Comments Never 0 (1 standard drink = 0.6 oz pur e alcohol) Depression Answer Date Recorded Patient Health Questionnaire-9 Score 7 10/28/2023 Patient Health Questionnaire-9 Score 7 10/28/2023 Last PHQ-9: Questionnaire Data Not on file 0 10/28/2023 Housing Stability Answer Date Recorded What is your housing situation today? I have rolandomai kramer 01/13/[address] you li ve. Do you have problems with any of the following? None of the above 01/13/2023 Food Insecurity Answer Date Recorded Within the past 12 months, y ou worried that your food would run out before you got money to buy more: Never True 01/13/2023 Within the past 12 months,th e food you bought just didn't last and you didn't have enough money to get more: Never True Transportation Answer Date Recorded In the past 12 months, has l ack of transportation kept you from medical appts, meetings, work or from getting things needed for daily living? No 01/13/2023 Utilities Answer Date Recorded In the past 12 months, has t he electric, gas, oil or water company threatened to shut off services in your home? No 01/13/2023 Depression Answer Date Recorded Patient Health Questionnaire-2 Score 4 10/28/2023 Sex and Gender Information Value Date Recorded Sex Assigned at Male 01/20/2022 10:22 AM EDT Legal Sex Male 10:22 AM EDT Gender Identity Male 01/20/2022 10:22 AM EDT Sexual Orientation Straight 01/20/2022 10 :22 AM EDT documented as of this encounter Miscellaneous Notes * Telephone Encounter - Lucrecia Lopez LPN - 09/02/2022 12:52 PM EDT Medication pended to PCP awaiting approval. * Telephone Encounter - Margie Costello - 09/02/2022 11:54 AM EDT Tc from [facility] requesting a refill for atorvastatin (Lipitor) 20 MG tablet documented in this encounter Plan of Treatment Not on file documented as of this encounter Visit Diagnoses Not on filedocumented in this encounter Additional Health Concerns Assessment Noted Time PHQ-9 Depression Total Score: 6 07/15/19 23 2:57 PM EDT documented as of this encounter Care Teams Sock Lining Stitcher Relationship Specialty Start Date End Date Madonna Yousif MD [address] [place] [address] PCP - General Family Medicine 07/25/21 documented as of this encounter
--- OUTSIDE RECORDS SUMMARY | 2024-04-22 12:11 | XMS_ITS | Encounter Summary ---
Author Organization [employer] Address [address] [place] [address] Care Team Providers Care Rotoformer Backtender Name Role Phone Madonna Yousif MD Primary Care Provider [phone] Encounter Details Date Type Department Care Team (Late st Contact Info) Description 03/25/2024 Orders Only GENERIC EXTERNAL DATA DEPARTMENT Provider, Generic External Data Social History Tobacco Use Types Packs/Day Years [...] is your housing situation today? I have rolando kramer 01/13/[address] you [...] AM EDT documented as of this encounter Plan of Treatment Not on file documented as of this encounter Procedures Procedure Name Priority Date/Time Associated Diagnosis Comments CBC WITH AUTO DIFFERENTIAL Routine 03/25/2024 11:47 AM EST HEPATIC FUNCTION PANEL Routine 11:42 AM EST COMPREHENSIVE METABOLIC PANEL Routine 03/25/2024 11:42 AM EST documented in this encounter Results * (ABNORMAL) CBC auto differential (03/25/2024 11:47 AM EST) White Blood Count 4.3(L) 4.8 - 10.8 X10*3/uL [facility] Red Blood Count 4.18(L) 4.60 - 5.80 X10*6/uL [facility] Hemoglobin 11.2(L) 14.0 - 18.0 g/dl [facility] Hematocrit 35.4(L) 42.0 - 52.0 % [facility] Mean Corpuscular Volume 84.7 80.0 - 98.0 fL [facility] Mean Corpuscular Hemoglobin 26.8(L) 27.0 - 33.0 pg [facility] Mean Corpuscular HGB Conc 31.6 31.0 - 36.0 g/dl [facility] Red Cell Distribution Width 17.1(H) 11.0 - 16.0 % [facility] Platelet Count 128(L) 160 - 400 X10*3/uL [facility] Mean Platelet Volume 10.2 9.4 - 12.4 fL [facility] Neutrophils Percent Auto 73.9(H) 45 - 73 % [facility] Imm Gran Pct Auto 0.5(H) 0.0 - 0.4 % [facility] Lymphocytes Percent Auto 8.9(L) 20 - 40 % [facility] Monocytes Percent Auto 15.6(H) 2 - 11 % [facility] Eosinophils Percent Auto 0.9 0 - 4 % [facility] Basophils Percent Auto 0.2 0 - 2 % [facility] NRBC Pct Auto 0.0 0.0 - 0.2 /100WBC [facility] Neutrophils Absolute Auto 3.2 2.0 - 8.3 x10*3/uL [facility] Imm Gran Abs Auto 0.02 0.00 - 0.03 X10*3/uL [facility] Lymphocytes Absolute Auto 0.4(L) 1.2 - 4.9 X10*3/uL [facility] Monocytes Absolute Auto 0.7 0.1 - 1.2 X10*3/uL [facility] Eosinophils Absolute Auto 0.0 0.0 - 0.4 X10*3/uL [facility] Basophils Absolute Auto 0.0 0.0 - 0.2 X10*3/uL [facility] NRBC Abs Auto 0.000 0.0 - 0.012 X10*3/uL [facility] 03/25/2024 11:4 7 AM EST 03/25/2024 1:09 PM EST us Generic External Data Provider LAB BLOOD ORDERAB LES Final Result [facility] [address] [place] [phone] * Hepatic Function Panel (03/25/2024 11:42 AM EST) Bilirubin, Direct 0.2 0.0 - 0.5 mg/dL [facility] 03/25/2024 11:4 2 AM EST 03/25/2024 1:09 PM EST us Generic External Data Provider LAB BLOOD ORDERAB LES Final Result Performing Organization Address City/[facility]/ZIP Co de Phone Number [facility] [address] [place] [phone] * (ABNORMAL) Comprehensive Metabolic Panel (03/25/2024 11:42 AM EST) Sodium 140 135 - 145 mmol/L [facility] Potassium 3.9 3.3 - 5.1 mmol/L [facility] Chloride 108 96 - 108 mmol/L [facility] Carbon Dioxide 25 22 - 29 mmol/L [facility] Anion Gap 11(L) 12 - 20 [facility] Urea Nitrogen (BUN) 10 9 - 16 mg/dL [facility] Creatinine, Serum 0.65 0.5 - 1.4 mg/dL [facility] Estimated Glomerular Filt Rate >60 [facility] Comment:Chronic Kidney Disea se: Estimated GFR < 60 mL/min/[id number] Kidney Disease: Estimated GFR < 15 mL/min/1.73m2 Glucose 139(H) 60 - 115 mg/dL [facility] Calcium 8.3(L) 8.4 - 10.2 mg/dL [facility] Bilirubin, Total 0.4 0.0 - 1.0 mg/dL [facility] Aspartate Amino Transferase 28 5 - 37 U/L [facility] Alanine Aminotransferase 20 0 - 40 U/L [facility] Total Protein 5.7(L) 6.5 - 8.0 g/dL [facility] Albumin Level 3.1(L) 3.5 - 5.0 g/dL [facility] Alkaline Phosphatase 90 39 - 117 U/L [facility] 03/25/2024 11:4 2 AM EST 03/25/2024 1:09 PM EST us Generic External Data Provider LAB BLOOD ORDERAB LES Final Result Performing Organization Address City/[facility]/ZIP Co de Phone Number [facility] [address] [place] [address] [phone] documented in this encounter Visit Diagnoses Not on filedocumented in this encounter Additional Health Concerns Assessment Noted Time PHQ-9 Depression Total Score: 7 10/28/19 24 11:45 AM EDT documented as of this encounter Care Teams Rotoformer Backtender Relationship Specialty Start Date End Date Madonna Yousif MD [address] [place] [address] PCP - General Family Medicine 07/25/21 documented as of this encounter
--- OUTSIDE RECORDS SUMMARY | 2024-04-22 12:11 | XMS_ITS | Encounter Summary ---
Author Organization [employer] Address [address] [place] [address] Care Team Providers Care Maintenance Manager Name Role Phone Madonna Yousif MD Primary Care Provider [phone] Encounter Details Date Type Department Care Team (Late st Contact Info) Description 11/08/2023 Orders Only [facility] [address] [place], [place] [phone] Xu Weir MD [address] [place] [address] Social History Tobacco Use Types Packs/Day Years [...] documented as of this encounter Care Teams Maintenance Manager Relationship Specialty Start Date End Date Madonna Yousif MD [address] [place] [phone] PCP - General Family Medicine 07/25/21 documented as of this encounter
--- OUTSIDE RECORDS SUMMARY | 2024-04-22 12:11 | XMS_ITS | Encounter Summary ---
Author Organization [employer] Address [address] [place] [address] Care Team Providers Care Marketing Underwriter Name Role Phone Madonna Yousif MD Primary Care Provider Reason for Visit * Reason Onset Date Comments Med Refill 07/28/2022 Encounter Details Date Type Department Care Team ([facility] st Contact Info) Description 07/28/2022 Telephone [facility] [address] [place] [address] Madonna Yousif MD [address] [place] [address] Med Refill Social History Tobacco Use Types Packs/Day Years Used Date Smoking Tobacco: Never Passive Smoke Exposure: Never Smokeless Tobacco: Never Alcohol Use Standard Drinks/Week Comments Never 0 (1 standard drink = 0.6 oz pur e alcohol) Depression Answer Date Recorded Patient Health Questionnaire-9 Score 6 07/14/2022 Depression Answer Date Recorded Patient Health Questionnaire-2 Score 3 07/14/2022 Sex and Gender Information Value Date Recorded Sex Assigned at Male 01/20/2022 10:22 AM EDT Legal Sex Male 10:22 AM EDT Gender Identity Male 01/20/2022 10:22 AM EDT Sexual Orientation Straight 01/20/2022 10 :22 AM EDT COVID-19 Exposure Response Date Recorded In the last 10 days, have yo u been in contact with someone who was confirmed or suspected to have Coronavirus/COVID-19? No / Unsure 07/14/2022 2:39 PM EDT documented as of this encounter Miscellaneous Notes * Telephone Encounter - Sarahi Durand - 07/28/2022 1:16 PM EDT Tc [place] staff from [facility] requesting med refill for medication milk of magnesia 400mg /5 ml . Medication is listed on next gen med list . documented in this encounter Plan of Treatment Not on file documented as of this encounter Visit Diagnoses Not on filedocumented in this encounter Additional Health Concerns Assessment Noted Time PHQ-9 Depression Total Score: 6 07/15/19 23 2:57 PM EDT documented as of this encounter Care Teams Marketing Underwriter Relationship Specialty Start Date End Date Madonna Yousif MD [address] [place] [address] PCP - General Family Medicine 07/25/21 documented as of this encounter
--- OUTSIDE RECORDS SUMMARY | 2024-04-22 12:11 | XMS_ITS | Clinical Summary ---
Author Organization [employer] Address [address] [facility] [address] [place] [address] Care Team Providers Care Interior Design Principal Name Role Phone Madonna Yousif MD Primary Care Provider [phone] Allergies Active Allergy Reactions Criticality Noted Date Comments Ibuprofen 04/10/2022 Other reaction(s): ucler Latex 03/08/2021 Penicillins Rash Low 04/10/2022 Pipe Fish 04/10/2022 perch (type of fish) Medications triamcinolone (Kenalog) 0.1 % ointment Apply topically every 12 (twelve) hours. 2 Active finasteride (Proscar) 5 MG tablet Take 5 mg by mouth in the morning. 2 Active mometasone (Elocon) 0.1 % lotion APPLY TO SCALP TWICE DAILY FOR TWO WEEKS BREAK FOR ONE WEEK THEN REPEAT NEEDED FOR ITCHING 2 Active OLANZapine (ZyPREXA) 20 MG tablet Take 1 tablet by mouth at bedtime. 3 Active tamsulosin (Flomax) 0.4 MG 24 hr capsuleIndications :Benign prostatic hyperplasia, unspecified whether lower urinary tract symptoms present take 1 capsule (0.4MG) by oral route every day 1/2 hour following the same meal each day 90 capsule 3 3 Active ketoconazole (NIZOral) 2 % shampoo Apply topically 2 (two) times a week. 120 mL 3 4 Active fluticasone (Flonase) 50 MCG/ACT nasal sprayIndications:C hronic rhinosinusitis Administer 2 sprays into each nostril 2 times daily. Shake gently. Before first use, prime pump. After use, clean tip and replace cap. 48 g 5 4 Active omeprazole (PriLOSEC) [address] capsule TAKE 1 CAPSULE BY MOUTH EVERY DAY BEFORE A MEAL 90 capsule 1 4 Active prednisoLONE acetate (Pred-Forte) 1 % ophthalmic suspension INSTILL 1 DROP INTO LEFT EYE TWICE A DAY 4 Active ibuprofen 400 MG tablet TAKE 1 TABLET BY MOUTH THREE TIMES A DAY WITH FOOD OR MILK NEEDED 4 Active cetirizine (ZyrTEC) 10 MG tabletIndications: Seasonal allergies TAKE 1 TABLET BY MOUTH EVERY DAY IN THE MORNING 90 tablet 1 4 Active Senna-Time 8.6 MG tablet TAKE 2 TABLETS (17.2 MG) BY MOUTH IF NEEDED AT BEDTIME FOR CONSTIPATION. 60 tablet 1 4 Active acetaminophen (Tylenol) 325 MG tabletIndications: Closed fracture of multiple ribs of right side with routine healing, subsequent encounter Take 2 tablets (650 mg) by mouth every 8 (eight) hours if needed for mild pain. 90 tablet 1 4 Active Alcohol Swabs 70 % padsIndications:Ty pe 2 diabetes mellitus without complication, without long-term current use of insulin ([facility]) Use to test blood sugar 2 times daily 100 each 11 4 Active Blood Glucose Monitoring Suppl (FreeStyle Jerome Lite) w/Device kitIndications:Typ e 2 diabetes mellitus without complication, without long-term current use of insulin ([facility]) Use to test blood sugar 2 times daily 1 kit 4 Active Vhrastb-Utzdlaa-Ua thyl Fritz (Salonpas) 3.1-6-10 % patchIndications:C losed fracture of multiple ribs of right side with routine healing, subsequent encounter To apply to the affected area 2 times a day. 60 patch 1 4 Active EPINEPHrine (EpiPen 2-Sanjay) 0.3 MG/0.3ML injection syringeIndications :Fish allergy Inject 0.3 mL (0.3 mg) as directed 1 (one) time for 1 dose. 1 each 4 Active Fluticasone Furoate-Vilanterol (Breo Ellipta) 200-25 MCG/ACT aerosol powderIndications: Moderate persistent asthma without complication Inhale 1 puff Once per day. 60 each 11 4 Active magnesium hydroxide (Milk of Magnesia) 400 MG/5ML suspensionIndicati ons:Other constipation Take 30 mL by mouth if needed in the morning and at bedtime for constipation. 360 mL 1 4 Active Blood Glucose Monitoring Suppl (FreeStyle Jerome Lite) w/Device kitIndications:Typ e 2 diabetes mellitus without complication, without long-term current use of insulin ([facility]) Use to test blood sugar 2 times daily 1 kit 4 Active ferrous sulfate 325 (65 Fe) MG tablet Take 1 tablet (325 mg) by mouth 3 (three) times a week. Thursday, Thursday and Thursday 30 tablet 2 4 Active FreeStyle lancetsIndications :Type 2 diabetes mellitus without complication, without long-term current use of insulin ([facility]) 1 each by Other route 3 times daily. 100 each 11 4 025 Active cholecalciferol VITAMIN D (Vitamin D-3) 50 MCG (2000 UT) capsule TAKE 1 CAPSULE BY MOUTH EVERY DAY 90 capsule 3 4 Active melatonin 5 MG tabletIndications: Primary insomnia TAKE 2 TABLETS BY MOUTH AT BEDTIME NEEDED FOR INSOMNIA 180 tablet 1 4 Active glucose blood (FREESTYLE LITE) test stripIndications:T ype 2 diabetes mellitus without complication, without long-term current use of insulin ([facility]) Use to test blood sugar 1 time daily 100 strip 12 4 Active carvedilol (Coreg) 12.5 MG tablet TAKE 1 TABLET BY MOUTH TWICE A DAY WITH FOOD FOR 90 DAYS 4 Active gabapentin (Neurontin) 300 MG capsuleIndications :Closed fracture of multiple ribs of right side with routine healing, subsequent encounter TAKE 1 CAPSULE BY MOUTH THREE TIMES A DAY 90 capsule 2 4 Active atorvastatin (Lipitor) 20 MG tabletIndications: Mixed hyperlipidemia TAKE 1 TABLET BY MOUTH EVERY DAY IN THE MORNING 90 tablet 1 4 Active GaviLyte-G 236 g solution PLEASE SEE ATTACHED FOR DETAILED DIRECTIONS 4 Active albuterol 108 (90 Base) MCG/ACT inhalerIndications :Moderate persistent asthma, unspecified whether complicated INHALE 2 PUFFS EVERY 4 HOURS. 18 g 5 Active Active Problems Problem Noted Date Diagnosed Date Mild intermittent asthma 01/01/2024 Lower GI bleed 01/01/2024 Multiple gastric ulcers 01/01/2024 Gastric mass 01/01/2024 Acute on chronic respiratory failure with hypoxi a 01/01/2024 Abnormal gastrointestinal PET scan 01/01/2024 Benign prostatic hyperplasia 11/16/2023 Anemia 11/16/2023 Assessment & Plan (11/16/2023 10:55 AM EDT): Ordering lab work for further evaluation. Obesity 11/16/2023 Assessment & Plan (11/16/2023 10:57 AM EDT): Ordering lab work for further evaluation. Glucose was 94; A1c 6.1. DC Metformin, continue diet control. Check fingerstick every other day for 3 months, will recheck next visit. Cancer, metastatic to bone 10/28/2023 Assessment & Plan (01/01/2024 8:43 AM EDT): Poorly differentiated carcinoma of the stomach, metastatic to bone. Patient already has Port-A-Cath in place, will be starting chemotherapy next week. Following with Dr. Shah. Denies pain. Cont with weight loss. Will f/up on status in 4-6 weeks, but mostly following with oncology. Assessment & Plan (11/16/2023 10:55 AM EDT): Continue to follow up with Oncologist. 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 Assessment & Plan (10/28/2023 1:04 PM EDT): Large hiatal hernia, will refer to surgery for evaluation as suggested per radiology report Physical exam 07/14/2022 Assessment & Plan (07/22/2023 10:23 AM EDT): Physical exam done, concern for obesity and SOB 2/2 changing of his controller inhaler. Reviewed meds. Stable, following with psychiatry and urology. Pending colon CA screening records Assessment & Plan (07/14/2022 4:44 PM EDT): Physical exam done, concern for obesity and elevated BP. Unclear when his BB and CCB where discontinued, unable to review any recent cardiology records. Stable, following with psychiatry and urology. Pending colon CA screening records Will send for triple A testing. Class 1 obesity with serious comorbidity and body mass index (BMI) of 32.0 to 32.9 in adult 07/14/2022 Assessment & Plan (07/20/2023 3:40 PM EDT): Ordering lab work for further evaluation. Discussed vaccinations due, agreed to administer at a later date. Assessment & Plan (07/14/2022 4:43 PM EDT): Discussed calorie deficit, recommended reduction of 20-30% of maintenance calories; laboratory animal caretaker referral offered. Recommended to decrease soda and sugary beverage consumption. Recommended at least 20 g per meal of protein to assist with satiety. Recommended at least 150 min/week of moderate intensity exercise. Traumatic rhabdomyolysis 04/10/2022 Syncope 04/10/2022 Moderate persistent asthma 04/10/2022 Hypertensive disorder 04/10/2022 Coronary arteriosclerosis 04/10/2022 Chronic low back pain 04/10/2022 Abnormal gait 04/10/2022 Bipolar disorder 04/10/2022 Raised prostate specific antigen 11/04/2021 Wears dentures 06/23/2016 Schizoaffective disorder 06/23/2016 Hyperlipidemia 06/23/2016 Gastroesophageal reflux disease 06/23/2016 Asthma 06/23/2016 Coarse tremor 10/30/2014 Resolved Problems Problem Noted Date Diagnosed Date Resolved Date Class 1 obesity 04/10/2022 07/14/2022 Pre-op evaluation 04/10/2022 11/16/2023 Assessment & Plan (04/10/2022 5:52 PM EST): Patient was seen for pre-operative evaluation for cataract surgery. Patient does follow with cardiology for CAD and palpitations, but has not had these symptoms in more then 6 months, and last visit with cardiology was told to return in 6 months. His cardiac risk factors ill be CAD, but no hx of CHF, uncontrolled arrhythmias, uncontrolled DM, renal failure, and he will undergo a low risk surgery. In this case, CV Risk is low for the intended procedure. He may proceed with cataract surgery under MAC Encounters Date Type Department Care Team Description 04/05/2024 Orders Only [facility] External Provider, [facility] 03/25/2024 Orders Only GENERIC EXTERNAL DATA DEPARTMENT Provider, Generic External Data 03/14/2024 Orders Only GENERIC EXTERNAL DATA DEPARTMENT Provider, Generic External Data 02/26/2024 Orders Only GENERIC EXTERNAL DATA DEPARTMENT Provider, Generic External Data 02/19/2024 Orders Only GENERIC EXTERNAL DATA DEPARTMENT Provider, Generic External Data 02/05/2024 Orders Only GENERIC EXTERNAL DATA DEPARTMENT Provider, Generic External Data 02/02/2024 Telephone [facility] [address] [place] [address] Madonna Yousif MD Medication Question 01/26/2024 Telephone [facility] [address] [place], [place] [phone] Madonna Yousif MD FYI 01/23/2024 Refill [facility] [address] [place], [place] [phone] Madonna Yousif MD Moderate persistent asthma, unspecified whether complicated 01/22/2024 Orders Only GENERIC EXTERNAL DATA DEPARTMENT Provider, Generic External Data from Last 3 Months Immunizations Name Administration Dates Next Due Influenza High-dose Quadrivalent Preservative Fr ee 12/16/2021 Influenza Whole 11/17/2011 Influenza injectable quadrivalent preservative f ree 01/21/2021,04/16/2018 Influenza, High Dose Seasonal, Preservative Free 02/01/2019 Influenza, IIV3, injectable 12/27/2009, 7 Moderna Covid-19 Vaccine 12+ 06/21/2020,05/25/19 21 Pfizer Covid-19 Vaccine 12+ 07/20/2023 Pneumococcal Conjugate PCV 13 04/16/2018 Pneumococcal Polysaccharide PPSV23 01/13/2018 Td (adult), unspecified 04/11/2004 Tdap 06/23/2016 Zoster, Recombinant 07/10/2021,05/09/2021 Social History Tobacco Use Types Packs/Day Years Used Date Smoking Tobacco: Never Passive Smoke Exposure: Never Smokeless Tobacco: Never Tobacco Cessation:Counseling Given: Not Answered Alcohol Use Standard Drinks/Week Comments Never 0 [...] Orientation Straight 01/20/2022 10 :22 AM EDT Last Filed Vital Signs Vital Sign Reading Time Taken Comments Blood Pressure 128/74 11/16/2023 10:20 AM EDT Pulse 64 11/16/2023 10:20 AM EDT Temperature 36.4 ??C (97.6 ??F) 11/16/2023 10:20 AM E DT Respiratory Rate 20 11/16/2023 10:20 AM EDT Oxygen Saturation 97% 11/16/2023 10:20 AM EDT Inhaled Oxygen Concentration - - Weight 89.1 kg (196 lb 6 oz) 11/16/2023 10:20 AM EDT Height 169 cm (5' 6.54 ) 11/16/2023 10:20 AM EDT Body Mass Index 31.19 11/16/2023 10:20 AM EDT Plan of Treatment Health Maintenance Due Date Last Done Comments CT Colonography 1952 Dental Oral Exam 1952 Dental Prophylaxis 1952 Dental X-Ray: Bitewings 1952 Dental X-Ray: Full Mouth 1950 FIT DNA/Cologuard 1950 FIT 1950 FOBT 1950 Sigmoidoscopy 1952 Diabetes: Foot Exam 1962 Eye Exam 1962 Alcohol/Substance Use Screening 1964 RSV Patients and Patients Aged 60 years or older (1 - Risk 60-74 years 1-dose series) 2012 Colonoscopy 06/22/2021 06/23/2011 Colorectal Cancer Screening 06/22/2021 Diabetes: Urine Protein Screening 2022 2021 COVID-19 Vaccine ( season) 2023 07/20/2023, 12/16/2021, 06/21/2020, Additional history exists Influenza Vaccine (#1) 2023 , 01/21/2021, 02/01/2019, Additional history exists Diabetes: Hemoglobin A1C 04/29/2024 024, 2021, 11/22/2020 SDOH Screening 07/12/2024 07/13/2023 Depression Screening 10/27/2024 10/28/2023, 10/28/19 Lipid Panel 11/15/2024 11/16/2023, 03/23, 11/22/2020, Additional history exists Tobacco Screening 12/31/2024 01/01/2024 DTaP/Tdap/Td Vaccines (2 - Td or Tdap) 06/23/2026 06/23/2016, 04/11/2004 Pneumococcal Vaccine: 50+ Years Completed 04/16/2018, 01/13/2018 Hepatitis C Screening Completed 2021 , 2021, 10/11/2020 Zoster Vaccines Completed 07/10/2021, 05/09/2021 HIB Vaccines Aged Out No longer eligi ble based on patient's age to complete this topic HPV Vaccines Aged Out No longer eligi ble based on patient's age to complete this topic Hepatitis A Vaccines Aged Out No long er eligible based on patient's age to complete this topic Hepatitis B Vaccines Aged Out No long er eligible based on patient's age to complete this topic IPV Vaccines Aged Out No longer eligi ble based on patient's age to complete this topic Meningococcal Vaccine Aged Out No gisele pa eligible based on patient's age to complete this topic RSV under 20 months Aged Out No longe r eligible based on patient's age to complete this topic Rotavirus Vaccines Aged Out No longer eligible based on patient's age to complete this topic Procedures Procedure Name Priority Date/Time Associated Diagnosis Comments CT CHEST W CONTRAST Routine 04/08/2024 1 1:[address] ABDOMEN PELVIS W CONTRAST Routine 04/08/2024 11:36 AM EST CBC WITH AUTO DIFFERENTIAL Routine 03/25/2024 11:47 AM EST HEPATIC FUNCTION PANEL Routine 11:42 AM EST COMPREHENSIVE METABOLIC PANEL Routine 03/25/2024 11:42 AM EST TSH Routine 03/14/2024 11:50 AM EST HEPATIC FUNCTION PANEL Routine 11:50 AM EST COMPREHENSIVE METABOLIC PANEL Routine 03/14/2024 11:50 AM EST CBC WITH AUTO DIFFERENTIAL Routine 03/14/2024 11:50 AM EST HEPATIC FUNCTION PANEL Routine 11:41 AM EST COMPREHENSIVE METABOLIC PANEL Routine 02/26/2024 11:41 AM EST CBC WITH AUTO DIFFERENTIAL Routine 02/26/2024 11:41 AM EST HEPATIC FUNCTION PANEL Routine 11:13 AM EST COMPREHENSIVE METABOLIC PANEL Routine 02/19/2024 11:13 AM EST CBC WITH AUTO DIFFERENTIAL Routine 02/19/2024 11:13 AM EST HEPATIC FUNCTION PANEL Routine 11:32 AM EST COMPREHENSIVE METABOLIC PANEL Routine 02/05/2024 11:32 AM EST CBC WITH AUTO DIFFERENTIAL Routine 02/05/2024 11:32 AM EST HEPATIC FUNCTION PANEL Routine 11:42 AM EDT COMPREHENSIVE METABOLIC PANEL Routine 01/22/2024 11:42 AM EDT CBC WITH AUTO DIFFERENTIAL Routine 01/22/2024 11:42 AM EDT LIPID PANEL, STANDARD Routine 11/16/2023 11:29 AM EDT Obesity, unspecified classification, unspecified obesity type, unspecified whether serious comorbidity present POCT GLYCATED HEMOGLOBIN, TOTAL Routine 10/28/2023 11:50 AM EDT Type 2 diabetes mellitus without complication, without long-term current use of insulin (CMS/HCC) ALBUMIN, RANDOM URINE W/CREATININE Routine 2021 1:15 PM EST HEPATITIS C AB W/REFL TO HCV RNA, QN, PCR Routine 2021 HM COLONOSCOPY Routine 06/23/2011 from Last 3 Months or Most Recently Relevant to Health Maintenance Results * CT Chest w/ Contrast (04/08/2024 11:44 AM EST) Anatomical Region Laterality Modality Body, Chest Computed Tomogra phy 04/08/2024 11:4 4 AM EST Narrative 04/08/2024 11:45 AM EST ? [facility] ?[address] ?[place] [address] ? CT Scan Report ? Signed with Addenda ? Patient: Timothy Muñiz ?MR#: [id number] ?? 559 ? : 1950 ?Acct:[id number] ? Age/Sex: 74 / M ?ADM Date: 04/05/24 ? Loc: HO.CT ? Attending Dr: Rosemary Shah MD ? Ordering Physician: Rosemary Shah MD ?? Date of Service: 04/05/24 ?? Procedure(s): CT chest w IV con ?? Accession Number(s): [id number] ? cc: Rosemary Shah MD; Madonna Yousif MD ? Report Number: ?? [id number]: Total DLP = ??140.00 mGy-cm ?ADDENDUM ?? This document has been electronically signed by: Carmelo Vu MD on ?? 04/08/2024 11:44:52 ? ADDENDUM: ?? Receipt of this report by the clinical staff was confirmed with Debra ?? Joel youth manager on Apr 08, 2024 14:45:00 EST. ? This document has been electronically signed by: Patricia Morales on ?? 04/08/2024 14:45:31 ? Addendum Dictated By: ?Carmelo Vu MD ? Addendum Signed By: ? <Electronically signed by Carmelo Vu MD in OV> ? 04/08/24 1446 ?? Addendum Cosigned By: ? DD/ ? TD/TT: 04/08/24 ? CLINICAL HISTORY: Gastric carcinoma s p 6 cycles of chemo, restaging ? CT chest with contrast ? Comparison: None ? Findings: ? Significant mass effect upon the heart related to a large hiatal hernia ?? containing majority of stomach. ?? Pronounced thickening involving the gastric antrum and pylorus with ?? significant narrowing of the pylorus. ?? Surrounding stranding noted. ?? Moderately severe atherosclerotic disease of the coronary arteries. ?? No definite mediastinal adenopathy. ?? Lungs exhibit no effusion or pneumothorax. ?? There is bandlike consolidation within the lingula, soft tissue thickening ?? surrounding the airways. ?? Tree-in-bud densities within the right middle lobe with small irregular ?? nodules. ?? Ill-defined and tree-in-bud nodular density within the posterior right ?? upper lobe. ?? Somewhat discrete 10 mm right upper lobe nodule on axial 146. ?? Innumerable scattered 2 and 3 mm nodules within the right lung with ?? additional tree-in-bud densities present within the left lung. ?? Diffuse metastatic disease throughout the osseous structures. ?? Partially healed right lower rib fractures. ? Impression: ? Nonspecific findings in the absence of comparison imaging. There are ?? diffuse abnormalities throughout both lungs with regions tree-in-bud ?? density, bandlike consolidation in discrete nodules. Favor infection for ?? this overall appearance however given the presence of malignancy, some of ?? these nodules could certainly reflect metastatic disease. Close interval ?? follow-up and correlation with any recent comparison imaging recommended. ? This document has been electronically signed by: Carmelo Vu MD on ?? 04/08/2024 11:44:52 ? Dictated By: ?Carmelo Vu MD ? Signed By: ?<Electronically signed by Carmelo Vu MD in OV> ? 04/08/24 1145 ? DD/ 1144 ? TD/TT: 04/08/24 1144 ? Furniture Repairer: ? Procedure Note Perez, Image - 04/08/[address] [address] [address] Scan Report Signed with Benito Patient: Ba MuñizR#: [id number] : 3Acct:[id number] Age/Sex: 74 / MADM Date: 04/05/24 Loc: HO.CT Attending Dr: Rosemary Shah MD Ordering Physician: Rosemary Shah MD Date of Service: 04/05/24 Procedure(s): CT chest w IV con Accession Number(s): [id number] cc: Rosemary Shah MD; Madonna Yousif MD Report Number: [id number]: Total DLP = 140.00 mGy-cm ADDENDUM This document has been electronically signed by: Carmelo Vu MD on 04/08/2024 11:44:52 ADDENDUM: Receipt of this report by the clinical staff was confirmed with Debra Maldonado, youth manager on Apr 08, 2024 14:45:00 EST. This document has been electronically signed by: Patricia Morales on 04/08/2024 14:45:31 Addendum Dictated By: Carmelo Vu MD Addendum Signed By: <Electronically signed by MD Naye in OV> 04/08/24 1446 Addendum Cosigned By: DD/ TD/TT: 04/08/24 CLINICAL HISTORY: Gastric carcinoma s p 6 cycles of chemo, restaging CT chest with contrast Comparison: None Findings: Significant mass effect upon the heart related to a large hiatal hernia containing majority of stomach. Pronounced thickening involving the gastric antrum and pylorus with significant narrowing of the pylorus. Surrounding stranding noted. Moderately severe atherosclerotic disease of the coronary arteries. No definite mediastinal adenopathy. Lungs exhibit no effusion or pneumothorax. There is bandlike consolidation within the lingula, soft tissue thickening surrounding the airways. Tree-in-bud densities within the right middle lobe with small irregular nodules. Ill-defined and tree-in-bud nodular density within the posterior right upper lobe. Somewhat discrete 10 mm right upper lobe nodule on axial 146. Innumerable scattered 2 and 3 mm nodules within the right lung with additional tree-in-bud densities present within the left lung. Diffuse metastatic disease throughout the osseous structures. Partially healed right lower rib fractures. Impression: Nonspecific findings in the absence of comparison imaging. There are diffuse abnormalities throughout both lungs with regions tree-in-bud density, bandlike consolidation in discrete nodules. Favor infection for this overall appearance however given the presence of malignancy, some of these nodules could certainly reflect metastatic disease. Close interval follow-up and correlation with any recent comparison imaging recommended. This document has been electronically signed by: Carmelo Vu MD on 04/08/2024 11:44:52 Dictated By: Carmelo Vu MD Signed By: <Electronically signed by Carmelo Vu MD in OV> 04/08/24 1145 DD/ 1144 TD/TT: 04/08/24 1144 Furniture Repairer: us [facility] External Provider IMG CT PROCEDURES Edited Result - Final * CT Abdomen Pelvis w/ Contrast (04/08/2024 11:36 AM EST) Anatomical Region Laterality Modality Body, Pelvis, Abdomen Computed T omography 04/08/2024 11:3 6 AM EST Narrative 04/08/2024 11:38 AM EST ? [facility] ?[address] ?[place] [address] ? CT Scan Report ? Signed with Addenda ? Patient: Timothy Muñiz ?MR#: [id number] ?? 559 ? : 1950 ?Acct:[id number] ? Age/Sex: 74 / M ?ADM Date: 04/05/24 ? Loc: HO.CT ? Attending Dr: Rosemary Shah MD ? Ordering Physician: Rosemary Shah MD ?? Date of Service: 04/05/24 ?? Procedure(s): CT abdomen pelvis w IV con ?? Accession Number(s): [id number] ? cc: Rosemary Shah MD; Madonna Yousif MD ? Report Number: ?? [id number]: Total DLP = ??317.00 mGy-cm ?ADDENDUM ?? This document has been electronically signed by: Carmelo Vu MD on ?? 04/08/2024 11:36:08 ? ADDENDUM: ?? Receipt of this report by the clinical staff was confirmed with Debra ?? Joel youth manager on Apr 08, 2024 14:44:00 EST. ? This document has been electronically signed by: Patricia Morales on ?? 04/08/2024 14:45:15 ? Addendum Dictated By: ?Carmelo Vu MD ? Addendum Signed By: ? <Electronically signed by Carmelo Vu MD in OV> ? 04/08/246 ?? Addendum Cosigned By: ? DD/ ? TD/TT: 04/08/24 ? CLINICAL HISTORY: Gastric CA, S P 6 cycles of chemo, restaging ? CT abdomen and pelvis with contrast ? Comparison: CT/OT - ABD PELVIS WO CONT [id number] - 06/19/11 20:53 EDT ? Findings: ?? No consolidation or effusion. ?? Large hiatal hernia containing the majority of the stomach, increased from ?? prior. Prominent abnormal thickening of the gastric antrum and pylorus ?? with significant surrounding stranding. ?? No pneumatosis. ?? No bowel obstruction. ?? There is diverticulosis with abnormal stranding about the distal ?? descending and proximal sigmoid colon. ?? Colitis versus acute diverticulitis. ?? No free air or abscess. ?? The liver, spleen, adrenal glands and pancreas demonstrate no acute ?? process. ?? The gallbladder is decompressed and contains multiple stones. ?? Kidneys demonstrate multiple cysts. No definite suspicious lesion. The ?? bladder is decompressed and mildly thick-walled. ?? The prostate gland is enlarged. ?? Osseous structures demonstrate innumerable diffuse sclerotic metastatic ?? lesions. ? Impression: ? There is prominent abnormal thickening and surrounding stranding involving ?? the gastric antrum and pylorus. No recent comparison studies. Given the ?? stated history, this may be the region of malignancy or reflect pronounced ?? gastritis. There is no evidence of perforation. There is a small volume of ?? surrounding free fluid. ? There is also abnormal stranding about a thickened segment distal ?? descending colon in the region of diverticulosis. Diverticulitis versus ?? colitis. ? Innumerable diffuse sclerotic bony metastatic lesions. ? This document has been electronically signed by: Carmelo Vu MD on ?? 04/08/2024 11:36:08 ? Dictated By: ?Carmelo Vu MD ? Signed By: ?<Electronically signed by Carmelo Vu MD in OV> ? 04/08/24 1137 ? DD/ ? TD/TT: 04/08/246 ? Furniture Repairer: ? Procedure Note Sarah Todd - 04/08/[address] [address] [address] Scan Report Signed with Addsimran Patient: Vilma MuñizonyMR#: [id number] : 3Acct:[id number] Age/Sex: 74 / MADM Date: 04/05/24 Loc: HO.CT Attending Dr: Rosemary Shah MD Ordering Physician: Rosemary Shah MD Date of Service: 04/05/24 Procedure(s): CT abdomen pelvis w IV con Accession Number(s): [id number] cc: Rosemary Shah MD; Madonna Yousif MD Report Number: [id number]: Total DLP = 317.00 mGy-cm ADDENDUM This document has been electronically signed by: Carmelo Vu MD on 04/08/2024 11:36:08 ADDENDUM: Receipt of this report by the clinical staff was confirmed with Debra Maldonado, youth manager on Apr 08, 2024 14:44:00 EST. This document has been electronically signed by: Patricia Morales on 04/08/2024 14:45:15 Addendum Dictated By: Carmelo Vu MD Addendum Signed By: <Electronically signed by MD Naye in OV> 04/08/241445 Addendum Cosigned By: DD/ TD/TT: 04/08/24 CLINICAL HISTORY: Gastric CA, S P 6 cycles of chemo, restaging CT abdomen and pelvis with contrast Comparison: CT/OT - ABD PELVIS WO CONT [id number] - 06/19/11 20:53 EDT Findings: No consolidation or effusion. Large hiatal hernia containing the majority of the stomach, increased from prior. Prominent abnormal thickening of the gastric antrum and pylorus with significant surrounding stranding. No pneumatosis. No bowel obstruction. There is diverticulosis with abnormal stranding about the distal descending and proximal sigmoid colon. Colitis versus acute diverticulitis. No free air or abscess. The liver, spleen, adrenal glands and pancreas demonstrate no acute process. The gallbladder is decompressed and contains multiple stones. Kidneys demonstrate multiple cysts. No definite suspicious lesion. The bladder is decompressed and mildly thick-walled. The prostate gland is enlarged. Osseous structures demonstrate innumerable diffuse sclerotic metastatic lesions. Impression: There is prominent abnormal thickening and surrounding stranding involving the gastric antrum and pylorus. No recent comparison studies. Given the stated history, this may be the region of malignancy or reflect pronounced gastritis. There is no evidence of perforation. There is a small volume of surrounding free fluid. There is also abnormal stranding about a thickened segment distal descending colon in the region of diverticulosis. Diverticulitis versus colitis. Innumerable diffuse sclerotic bony metastatic lesions. This document has been electronically signed by: Carmelo Vu MD on 04/08/2024 11:36:08 Dictated By: Carmelo Vu MD Signed By: <Electronically signed by Carmelo Vu MD in OV> 04/08/24 1137 DD/ 1136 TD/TT: 04/08/24 1136 Furniture Repairer: [facility] External Provider IMG CT PROCEDURES Edited Result - Final * (ABNORMAL) CBC auto differential (03/25/2024 11:47 AM EST) Only the most recent of6 resultswithin the time period is included. White Blood Count 4.3(L) 4.8 - 10.8 X10*3/uL [facility] Red Blood Count 4.18(L) 4.60 - 5.80 X10*6/uL [facility] Hemoglobin 11.2(L) 14.0 - 18.0 g/dl [facility] Hematocrit 35.4(L) 42.0 - 52.0 % [facility] Mean Corpuscular Volume 84.7 80.0 - 98.0 fL [facility] Mean Corpuscular Hemoglobin 26.8(L) 27.0 - 33.0 pg [facility] Mean Corpuscular HGB Conc 31.6 31.0 - 36.0 g/dl [facility] Red Cell Distribution Width 17.1(H) 11.0 - 16.0 % [facility] Platelet Count 128(L) 160 - 400 X10*3/uL [facility] Mean Platelet Volume 10.2 9.4 - 12.4 fL [facility] Neutrophils Percent Auto 73.9(H) 45 - 73 % [facility] Imm Gran Pct Auto 0.5(H) 0.0 - 0.4 % [facility] Lymphocytes Percent Auto 8.9(L) 20 - 40 % [facility] Monocytes Percent Auto 15.6(H) 2 - 11 % [facility] Eosinophils Percent Auto 0.9 0 - 4 % [facility] Basophils Percent Auto 0.2 0 - 2 % [facility] NRBC Pct Auto 0.0 0.0 - 0.2 /100WBC [facility] Neutrophils Absolute Auto 3.2 2.0 - 8.3 x10*3/uL [facility] Imm Gran Abs Auto 0.02 0.00 - 0.03 X10*3/uL [facility] Lymphocytes Absolute Auto 0.4(L) 1.2 - 4.9 X10*3/uL [facility] Monocytes Absolute Auto 0.7 0.1 - 1.2 X10*3/uL [facility] Eosinophils Absolute Auto 0.0 0.0 - 0.4 X10*3/uL [facility] Basophils Absolute Auto 0.0 0.0 - 0.2 X10*3/uL [facility] NRBC Abs Auto 0.000 0.0 - 0.012 X10*3/uL [facility] 03/25/2024 11:4 7 AM EST 03/25/2024 1:09 PM EST us Generic External Data Provider LAB BLOOD ORDERAB LES Final Result Performing Organization Address [facility]/ZIP Co de Phone Number [facility] [address] [place] [phone] * Hepatic Function Panel (03/25/2024 11:42 AM EST) Only the most recent of6 resultswithin the time period is included. Bilirubin, Direct 0.2 0.0 - 0.5 mg/dL [facility] 03/25/2024 11:4 2 AM EST 03/25/2024 1:09 PM EST us Generic External Data Provider LAB BLOOD ORDERAB LES Final Result [facility] [address] [place] [address] [phone] * (ABNORMAL) Comprehensive Metabolic Panel (03/25/2024 11:42 AM EST) Only the most recent of6 resultswithin the time period is included. Sodium 140 135 - 145 mmol/L [facility] Potassium 3.9 3.3 - 5.1 mmol/L [facility] Chloride 108 96 - 108 mmol/L [facility] Carbon Dioxide 25 22 - 29 mmol/L [facility] Anion Gap 11(L) 12 - 20 [facility] Urea Nitrogen (BUN) 10 9 - 16 mg/dL [facility] Creatinine, Serum 0.65 0.5 - 1.4 mg/dL [facility] Estimated Glomerular Filt Rate >60 [facility] Comment:Chronic Kidney Disea se: Estimated GFR < 60 mL/min/[id number] Kidney Disease: Estimated GFR < 15 mL/min/1.73m2 Glucose 139(H) 60 - 115 mg/dL [facility] Calcium 8.3(L) 8.4 - 10.2 mg/dL [facility] Bilirubin, Total 0.4 0.0 - 1.0 mg/dL [facility] Aspartate Amino Transferase 28 5 - 37 U/L [facility] Alanine Aminotransferase 20 0 - 40 U/L [facility] Total Protein 5.7(L) 6.5 - 8.0 g/dL [facility] Albumin Level 3.1(L) 3.5 - 5.0 g/dL [facility] Alkaline Phosphatase 90 39 - 117 U/L [facility] 03/25/2024 11:4 2 AM EST 03/25/2024 1:09 PM EST us Generic External Data Provider LAB BLOOD ORDERAB LES Final Result [facility] [address] [place] [phone] * TSH (03/14/2024 11:50 AM EST) Thyroid Stimulating Hormone 1.89 0.32 - 4.0 uIU/mL [facility] Comment:TSH 3rd Generation ( [facility]) 03/14/2024 11:5 0 AM EST 03/14/2024 1:31 PM EST us Generic External Data Provider LAB BLOOD ORDERAB LES Final Result Performing Organization Address [facility] Co de Phone Number [facility] [address] [place] [phone] * (ABNORMAL) Lipid Panel, Standard (11/16/2023 11:29 AM EDT) Triglycerides 114 <150 mg/dL [facility] Comment:Desirable Triglyceri de: less than 150 mg/dLBorderline High Triglyceride 150-199 mg/dLHigh Triglyceride: 200-499 mg/dLVery High Triglyceride: greater than or equal to 5OO mg/dL Cholesterol 126 <200 mg/dL [facility] Comment:Desirable Cholestero l: less than 200 mg/dLBorderline High Cholesterol: 200-239 mg/dLHigh Cholesterol: greater than 239 mg/dL LDL Cholesterol Calculated 71 <100 mg/dL [facility] Comment:Desirable LDL: less than 100 mg/dLNear Optimal/Above Optimal LDL: 110- 129 mg/dLBorderline High LDL: 130-159 mg/dLHigh LDL: 160-189 mg/dLVery High LDL: greater than or equal to 190 mg/dL HDL Cholesterol 33(L) >40 mg/dL [facility] Comment:Desirable HDL: great er than 40 mg/dL Note: This HDL assay may give artificially low results in patients with liver disease. Blood Venous blood specimen / Unknown 11/16/2023 11:29 AM EDT 11/16/2023 2:33 PM EDT us Madonna Yousif MD LAB BLOOD ORDERABLES Final Re sult Performing Organization Address [facility]/ZIP Co de Phone Number [facility] [address] [place] [phone] * (ABNORMAL) POCT HGB A1C (10/28/2023 11:50 AM EDT) Hemoglobin A1C 6.1(A) 4.0 - 6.0 % QC Media Lot # [id number] Lot# Expiration Date ,302 Blood 10/28/2023 11:5 0 AM EDT Xu Moody MD POINT OF CARE TEST ENTER/EDIT ORDERABLES Final Result * (ABNORMAL) ALBUMIN, RANDOM URINE W/CREATININE (2021 1:15 PM EST) Microalbumin Urine <0.2 See Note: mg/dL [facility] Comment: Reference Range: ?? Reference Range Not established Microalb/Creat Ratio NOTE <30 mcg/mg creat [facility] Comment: NOTE: The urine albumin value is less than ?? 0.2 mg/dL therefore we are unable to calculate ?? excretion and/or creatinine ratio. ?? The ADA defines abnormalities in albumin excretion as follows: ?? Albuminuria Category ?Result (mcg/mg creatinine) ?? Normal to Mildly increased ?? <30 Moderately increased ? 30-299 ?? Severely increased ? > OR = 300 ?? The ADA recommends that at least two of three specimens collected within a 3-6 month period be abnormal before considering a patient to be within a diagnostic category. Creatinine, Urine 15(L) 20 - 320 mg/dL [facility] 2021 1:15 PM EST Allison Perez MD LAB URINE ORDERABLES Final Result [facility] [address] * Hepatitis C Antibody with Reflex to HCV, RNA, Quantitative, Real-Time PCR (2021) Blood Venous blood specimen / Unknown 2021 Narrative Madonna Yousif MD - 07/14/2022 3:25 PM EDT Non reactive Historical Provider LAB BLOOD ORDERABLES Reyna l Result * Colonoscopy (06/23/2011) Colonoscopy Normal Normal us Historical Provider HEALTH MAINTENANCE Final Result from Last 3 Months or Most Recently Relevant to Health Maintenance Insurance [facility]IC[facility] ST[facility] ADULT Care Teams Interior Design Principal Relationship Specialty Start Date End Date Madonna Yousif MD [address] [place] [phone] PCP - General Family Medicine 07/25/21
--- OUTSIDE RECORDS SUMMARY | 2024-04-22 12:11 | XMS_ITS | Encounter Summary ---
Author Organization [employer] Address [address] [place] [address] Care Team Providers Care Cone Cleaner Name Role Phone Madonna Yousif MD Primary Care Provider [phone] Reason for Visit * Reason Comments Med Change Request Encounter Details Date Type Department Care Team ([facility] Contact Info) Description 06/30/2023 Refill [facility] ADULT DENTAL [address] [place] [address] Madonna Yousif MD [address] [place] [address] Social History Tobacco Use Types Packs/Day Years Used Date Smoking Tobacco: Never Passive Smoke Exposure: Never Smokeless Tobacco: Never Alcohol Use Standard Drinks/Week Comments Never 0 (1 standard drink = 0.6 oz pur e alcohol) Depression Answer Date Recorded Patient Health Questionnaire-9 Score 6 07/14/2022 Housing Stability Answer Date Recorded What is [...] encounter Miscellaneous Notes * Telephone Encounter - Maged Baxter DMD - 06/30/2023 11:22 AM EDT Please follow up with her physician documented in this encounter Plan of Treatment Not on file documented as of this encounter Visit Diagnoses Not on filedocumented in this encounter Additional Health Concerns Assessment Noted Time PHQ-9 Depression Total Score: 6 07/15/19 23 2:57 PM EDT documented as of this encounter Care Teams Cone Cleaner Relationship Specialty Start Date End Date Madonna Yousif MD [address] [place] [address] PCP - General Family Medicine 07/25/21 documented as of this encounter
--- OUTSIDE RECORDS SUMMARY | 2024-04-22 12:11 | XMS_ITS | Encounter Summary ---
Author Organization [employer] Address [address] [place] [address] Care Team Providers Care Tongue And Groove Machine Operator Name Role Phone Madonna Yousif MD Primary Care Provider [phone] Encounter Details Date Type Department Care Team (Late st Contact Info) Description 10/13/2023 Telephone [facility] MEDICINE [address] [place] [address] Madonna Yousif MD [address] [place] [address] Social History Tobacco Use Types Packs/Day Years [...] documented as of this encounter Care Teams Tongue And Groove Machine Operator Relationship Specialty Start Date End Date Madonna Yousif MD [address] [place] [address] PCP - General Family Medicine 07/25/21 documented as of this encounter
--- OUTSIDE RECORDS SUMMARY | 2024-04-22 12:11 | XMS_ITS | Encounter Summary ---
Author Organization [employer] Address [address] [facility] [address] [place] [address] Care Team Providers Care Site Supervising Technical Operator Name Role Phone Madonna Yousif MD Primary Care Provider [phone] Encounter Details Date Type Department Care Team ([facility] st Contact Info) Description 12/03/2022 [facility] Information Management [address] [place] [address] Madonna Yousif MD [address] [place], [place] [phone] Social History Tobacco Use Types Packs/Day Years [...] documented as of this encounter Care Teams Site Supervising Technical Operator Relationship Specialty Start Date End Date Madonna Yousif MD [address] [place] [address] PCP - General Family Medicine 07/25/21 documented as of this encounter
--- OUTSIDE RECORDS SUMMARY | 2024-04-22 12:11 | XMS_ITS | Encounter Summary ---
Author Organization [employer] Address [address] [place] [address] Care Team Providers Care Carton Wrapper Name Role Phone Madonna Yousif MD Primary Care Provider [phone] Reason for Visit * Reason Onset Date Comments Call Back Request 10/19/2023 Encounter Details Date Type Department Care Team ([facility] st Contact Info) Description 10/19/2023 Telephone [facility] MEDICINE [address] [place] [address] Madonna Yousif MD [address] [place] [address] Call Back Request Social History Tobacco Use Types Packs/Day Years [...] encounter Miscellaneous Notes * Telephone Encounter - Wing Uday RN - 10/19/2023 5:03 PM EDT Tc to [facility] who stated the abdominal hernia was not known due to only being in [facility] notes. Agreed that pt needed appt with a provider. Gave pt appt for 10/27 at 11:[address] Rivero. * Telephone Encounter - Rj Vasquez - 10/19/2023 4:07 PM EDT Tc from [facility] with [facility] calling in regards to pt's discharge from rehab. [facility] statedpt was discharged with abdominal hernia and this wasn't addressed during [facility] due to not having knowledge of thi until recently. [facility] is requesting a call back to further discuss. Please contact [facility] at [phone]. documented in this encounter Plan of Treatment Not on file documented as of this encounter Visit Diagnoses Not on filedocumented in this encounter Additional Health Concerns Assessment Noted Time PHQ-9 Depression Total Score: 6 07/15/19 23 2:57 PM EDT documented as of this encounter Care Teams Carton Wrapper Relationship Specialty Start Date End Date Madonna Yousif MD [address] [place] [address] PCP - General Family Medicine 07/25/21 documented as of this encounter
--- OUTSIDE RECORDS SUMMARY | 2024-04-22 12:11 | XMS_ITS | Encounter Summary ---
Author Organization [employer] Address [address] [place] [address] Care Team Providers Care Medicare Nurse Name Role Phone Madonna Yousif MD Primary Care Provider Encounter Details Date Type Department Care Team (Late st Contact Info) Description 05/23/2022 Abstract [facility] ADULT DENTAL [address] [place] [address] Maged Baxter DMD [address] [place] [address] Social History Tobacco Use Types Packs/Day Years Used Date Smoking Tobacco: Never Passive Smoke Exposure: Never Smokeless Tobacco: Never Alcohol Use Standard Drinks/Week Comments Never 0 (1 standard drink = 0.6 oz pur e alcohol) Sex and Gender Information Value Date Recorded [...] suspected to have Coronavirus/COVID-19? No / Unsure 05/07/2022 11:09 AM EST documented as of this encounter Plan of Treatment Not on file documented as of this encounter Visit Diagnoses Not on filedocumented in this encounter Additional Health Concerns Assessment Noted Time PHQ-9 Depression Total Score: 4 04/10/19 23 3:11 PM EST documented as of this encounter Care Teams Medicare Nurse Relationship Specialty Start Date End Date Madonna Yousif MD [address] [place] [address] PCP - General Family Medicine 07/25/21 documented as of this encounter
--- OUTSIDE RECORDS SUMMARY | 2024-04-22 12:11 | XMS_ITS | Encounter Summary ---
Author Organization [employer] Address [address] [facility] [address] [place] [address] Care Team Providers Care Practice Professional Name Role Phone Madonna Yousif MD Primary Care Provider [phone] Reason for Visit * Reason Comments Med Refill Encounter Details Date Type Department Care Team ([facility] st Contact Info) Description 07/28/2022 Refill [facility] [address] [place], [place] [phone] Allison Sanchez MD [address] [place] [address] Social History Tobacco Use Types Packs/Day Years [...] PM EDT documented as of this encounter Plan of Treatment Not on file documented as of this encounter Visit Diagnoses Not on filedocumented in this encounter Additional Health Concerns Assessment Noted Time PHQ-9 Depression Total Score: 6 07/15/19 23 2:57 PM EDT documented as of this encounter Care Teams Practice Professional Relationship Specialty Start Date End Date Madonna Yousif MD [address] [place] [address] PCP - General Family Medicine 07/25/21 documented as of this encounter
--- OUTSIDE RECORDS SUMMARY | 2024-04-22 12:11 | XMS_ITS | Encounter Summary ---
Author Organization [employer] Address [address] [place] [address] Care Team Providers Care Live Ammunition Inspector Name Role Phone Madonna Yousif MD Primary Care Provider [phone] Encounter Details Date Type Department Care Team (Late st Contact Info) Description 04/05/2024 Orders Only [facility] External Provider, [facility] Social History Tobacco Use Types Packs/Day Years [...] W CONTRAST Routine 04/08/2024 11:36 AM EST documented in this encounter Results * CT Chest w/ Contrast (04/08/2024 11:44 AM EST) Anatomical Region Laterality Modality Body, Chest Computed Tomogra phy 04/08/2024 11:4 4 AM EST Narrative 04/08/2024 11:45 AM EST ? [facility] ?[address] ?[place] [address] ? CT Scan Report ? Signed with Addenda ? Patient: Timothy Muñiz ?MR#: [id number] ?? [id number] ? : 1950 ?Acct:[id number] ? Age/Sex: 74 / M ?ADM Date: 04/05/24 ? Loc: HO.CT ? Attending Dr: Rosemary Shah MD ? Ordering Physician: Rosemary Shah MD ?? Date of Service: 04/05/24 ?? Procedure(s): CT chest w IV con ?? Accession Number(s): [id number] ? cc: Rosemary Shah MD; Madonna Yousif MD ? Report Number: ?? [id number]: Total DLP = ??140.00 mGy-cm ?ADDENDUM ?? This document has been electronically signed by: Carmelo Vu MD on ?? 04/08/2024 11:44:52 ? ADDENDUM: ?? Receipt of this report by the clinical staff was confirmed with Debra ?? [facility] general practice on Apr 08, 2024 14:45:00 EST. ? [...] DD/ 1144 ? TD/TT: 04/08/24 1144 ? Company Laborer: ? Procedure Note Sarah Todd - 04/08/2024 [facility] [address] [place] [address] CT Scan Report Signed with Addenda Patient: Vilma MuñizonyMR#: [id number] : 3Acct:[id number] Age/Sex: 74 / MADM Date: 04/05/24 Loc: HO.CT Attending Dr: Rosemary Shah MD Ordering Physician: Rosemary Shah MD Date of Service: 04/05/24 Procedure(s): CT chest w IV con Accession Number(s): [id number] cc: Rosemary Shah MD; Madonna Yousif MD Report Number: [id number]: Total DLP = 140.00 mGy-cm ADDENDUM This document has been electronically signed by: Carmelo Vu MD on 04/08/2024 11:44:52 ADDENDUM: Receipt of this report by the clinical staff was confirmed with Debra Maldonado, general practice on Apr 08, 2024 14:45:00 EST. This [...] 04/08/24 1145 DD/ 1144 TD/TT: 04/08/24 1144 Company Laborer: [facility] External Provider IMG CT PROCEDURES Edited Result - Final * CT Abdomen Pelvis w/ Contrast (04/08/2024 11:36 AM EST) Anatomical Region Laterality Modality Body, Pelvis, Abdomen Computed T omography 04/08/2024 11:3 6 AM EST Narrative 04/08/2024 11:38 AM EST ? [facility] ?[address] ?[place] [address] ? CT Scan Report ? Signed with Addenda ? Patient: Timothy Muñiz ?MR#: [id number] ?? [id number] ? : 1950 ?Acct:[id number] ? Age/Sex: 74 / M ?ADM Date: 04/05/24 ? Loc: HO.CT ? Attending Dr: Rosemary Shah MD ? Ordering Physician: Rsoemary Shah MD ?? Date of Service: 04/05/24 ?? Procedure(s): CT abdomen pelvis w IV con ?? Accession Number(s): [id number] ? cc: Rosemary Shah MD; Madonna Yousif MD ? Report Number: ?? [id number]: Total DLP = ??317.00 mGy-cm ?ADDENDUM ?? This document has been electronically signed by: Carmelo Vu MD on ?? 04/08/2024 11:36:08 ? ADDENDUM: ?? Receipt of this report by the clinical staff was confirmed with Debra ?? [facility] practice on Apr 08, 2024 14:44:00 EST. ? [...] Comparison: CT/OT - ABD PELVIS WO CONT [id number] - 06/19/11 20:53 EDT ? Findings: ?? [...] in OV> ? 04/08/24 1137 ? DD/ 1136 ? TD/TT: 04/08/24 1136 ? Company Laborer: ? Procedure Note Sarah Todd - 04/08/[address] [address] [address] Scan Report Signed with Benito Patient: Vilma MuñizonyMR#: [id number] : 1950cct:[id number] Age/Sex: 74 / MADM Date: 04/05/24 Loc: HO.CT Attending Dr: Rosemary Shah MD Ordering Physician: Rosemary Shah MD Date of Service: 04/05/24 Procedure(s): CT abdomen pelvis w IV con Accession Number(s): [id number] cc: Rosemary Shah MD; Madonna Yousif MD Report Number: [id number]: Total DLP = 317.00 mGy-cm ADDENDUM This document has been electronically signed by: Carmelo Vu MD on 04/08/2024 11:36:08 ADDENDUM: Receipt of this report by the clinical staff was confirmed with Debra Maldonado, general practice on Apr 08, 2024 14:44:00 EST. This [...] Comparison: CT/OT - ABD PELVIS WO CONT [id number] - 06/19/11 20:53 EDT Findings: No consolidation [...] 04/08/24 1137 DD/ 1136 TD/TT: 04/08/24 1136 Company Laborer: [facility] External Provider IMG CT PROCEDURES Edited Result - Final documented in this encounter Visit Diagnoses Not on filedocumented in this encounter Additional Health Concerns Assessment Noted Time PHQ-9 Depression Total Score: 7 10/28/19 24 11:45 AM EDT documented as of this encounter Care Teams Live Ammunition Inspector Relationship Specialty Start Date End Date Madonna Yousif MD [address] [place] [address] PCP - General Family Medicine 07/25/21 documented as of this encounter
--- OUTSIDE RECORDS SUMMARY | 2024-04-22 12:11 | XMS_ITS | Encounter Summary ---
Author Organization [employer] Address [address] 7[address] [place] [address] Care Team Providers Care Service Observer Name Role Phone Madonna Yousif MD Primary Care Provider [phone] Reason for Visit * Reason Onset Date Comments FYI 01/26/2024 Encounter Details Date Type Department Care Team (Late st Contact Info) Description 01/26/2024 Telephone [facility] MEDICINE [address] [place] [address] Madonna Yousif MD [address] [place] [address] FYI Social History Tobacco Use Types Packs/Day Years [...] encounter Miscellaneous Notes * Telephone Encounter - Hemalatha Cottrell RN - 01/26/2024 11:16 AM EST Noted. * Telephone Encounter - Cedric Bell - 01/26/2024 10:55 AM EST Tc from [facility] ([facility]) informing they will fax over an order for Senna 8.6mg medication to be discontinued. [facility] indicates order needs to be signed and fax back to her. Pt lives in [facility] and [facility] informs that pt oncologist will manage the medication Senna 8.6mg. Callback number if any questions [facility] [phone] documented in this encounter Plan of Treatment Not on file documented as of this encounter Visit Diagnoses Not on filedocumented in this encounter Additional Health Concerns Assessment Noted Time PHQ-9 Depression Total Score: 7 10/28/19 24 11:45 AM EDT documented as of this encounter Care Teams Service Observer Relationship Specialty Start Date End Date Madonna Yousif MD [address] [place] [address] PCP - General Family Medicine 07/25/21 documented as of this encounter
--- OUTSIDE RECORDS SUMMARY | 2024-04-22 12:11 | XMS_ITS | Encounter Summary ---
Author Organization [employer] Address [address] 7[address] [place] [address] Care Team Providers Care Roll Over Press Operator Name Role Phone Madonna Yousif MD Primary Care Provider [phone] Reason for Visit * Reason Onset Date Comments Medication Question 10/29/2023 Encounter Details Date Type Department Care Team ([facility] st Contact Info) Description 10/29/2023 Telephone [facility] MEDICINE [address] [place] [address] Madonna Yousif MD [address] [place] [address] Medication Question Social History Tobacco Use Types Packs/Day Years [...] encounter Miscellaneous Notes * Telephone Encounter - Krzysztof Lepe - 11/02/2023 1:38 PM EDT Tc from [place] from [facility] calling in regards to the message below states the frequency of the Freestyle Lite test strips would need to be changed from 2 times daily to 1 time daily due to insurance will not approve the script * Telephone Encounter - Katie Cuellar MD - 10/29/2023 5:00 PM EDT No idea what this means * Telephone Encounter - Vanessa Tobin - 10/29/2023 2:49 PM EDT Tc from pt informing that on day of appt with Dr. Rivero, PCP advised will change script for Test strip once a day except of twice a day due to coverage. documented in this encounter Plan of Treatment Not on file documented as of this encounter Visit Diagnoses Not on filedocumented in this encounter Additional Health Concerns Assessment Noted Time PHQ-9 Depression Total Score: 7 10/28/19 24 11:45 AM EDT documented as of this encounter Care Teams Roll Over Press Operator Relationship Specialty Start Date End Date Madonna Yousif MD [address] [place] [address] PCP - General Family Medicine 07/25/21 documented as of this encounter
--- OUTSIDE RECORDS SUMMARY | 2024-04-22 12:11 | XMS_ITS | Encounter Summary ---
Author Organization [employer] Address [address] 7[address] [place] [address] Care Team Providers Care Check Totaler Name Role Phone Madonna Yousif MD Primary Care Provider [phone] Reason for Visit * Reason Onset Date Comments Med Refill 06/09/2023 Encounter Details Date Type Department Care Team ([facility] st Contact Info) Description 06/09/2023 Telephone [facility] MEDICINE [address] [place] [address] Madonna Yousif MD [address] [place] [address] Med Refill Social History Tobacco Use Types [...] encounter Miscellaneous Notes * Telephone Encounter - Kathryn Jackson - 06/09/2023 10:25 AM EDT TC from pt requesting medication refill. Medications needing refill : fluticasone (Flonase) 50 MCG/ACT nasal spray To be sent to: [facility]/pharmacy #[id number] documented in this encounter Plan of Treatment Not on file documented as of this encounter Visit Diagnoses Not on filedocumented in this encounter Additional Health Concerns Assessment Noted Time PHQ-9 Depression Total Score: 6 07/15/19 23 2:57 PM EDT documented as of this encounter Care Teams Check Totaler Relationship Specialty Start Date End Date Madonna Yousif MD [address] [place] [address] PCP - General Family Medicine 07/25/21 documented as of this encounter
--- OUTSIDE RECORDS SUMMARY | 2024-04-22 12:11 | XMS_ITS | Encounter Summary ---
Author Organization [employer] Address [address]t [place] [address] Care Team Providers Care Pay Station Attendant Name Role Phone Madonna Yousif MD Primary Care Provider Reason for Visit * Reason Onset Date Comments Medication Question 02/02/2024 Encounter Details Date Type Department Care Team ([facility] st Contact Info) Description 02/02/2024 Telephone [facility] MEDICINE [address] [place] [address] Madonna Yousif MD [address] [place] [address] Medication Question Social History Tobacco Use Types [...] encounter Miscellaneous Notes * Telephone Encounter - Isael Villarreal RN - 02/02/2024 9:55 AM EST Please see FYI below. * Telephone Encounter - Khoa Aguilar - 02/02/2024 8:26 AM EST Tc from [facility] with [employer] stating that she will be sending over a phone order to discontinue med gabapentin (Neurontin) 300 MG capsule for pt . If any question contact Lu[facility]cia at [phone] documented in this encounter Plan of Treatment Not on file documented as of this encounter Visit Diagnoses Not on filedocumented in this encounter Additional Health Concerns Assessment Noted Time PHQ-9 Depression Total Score: 7 10/28/19 24 11:45 AM EDT documented as of this encounter Care Teams Pay Station Attendant Relationship Specialty Start Date End Date Madonna Yousif MD [address] [place] [address] PCP - General Family Medicine 07/25/21 documented as of this encounter
--- OUTSIDE RECORDS SUMMARY | 2024-04-22 12:11 | XMS_ITS | Clinical Summary ---
Author Organization [address] [facility] Address [address] [place] [address] Phone Care Team Providers Care Clerk Manager Name Role Phone Madonna Yousif MD Primary Care Provider [phone] Allergies Active Allergy Reactions Criticality Noted Date Comments Ibuprofen 11/10/2023 Ulcer Latex 11/10/2023 Penicillins 11/10/2023 Medications Medication Sig Dispensed Refills Start Date End Date Status ALBUTEROL INHL Inhale into the lungs every 6 hours as needed. Active atorvastatin (LIPITOR) 20 mg tablet Take 1 tablet (20 mg total) by mouth 1 (one) time each day. Active cetirizine (ZyrTEC) 10 mg capsule Take by mouth. Active cholecalciferol (VITAMIN D-3) 50 mcg (2,000 unit) capsule Take by mouth. Active dilTIAZem LA (CARDIZEM LA) 360 mg 24 hr tablet Take by mouth. Active finasteride (PROSCAR) 5 mg tablet Take 1 tablet (5 mg total) by mouth 1 (one) time each day. Active fluticasone propionate (FLONASE) 50 mcg/actuation nasal spray 2 Sprays by Each Nare route daily. Active UNABLE TO FIND FLUTICASONE-SALMETER OL IN Inhale into the lungs. Active melatonin 10 mg tablet Take by mouth. Active MAGNESIUM HYDROXIDE ORAL Take by mouth. Active OLANZapine (ZyPREXA) 20 mg tablet Take 1 Tablet by mouth at bedtime. Active omeprazole (PriLOSEC) [address] capsule Take 1 capsule (20 mg total) by mouth 1 (one) time each day. Active tamsulosin (FLOMAX) 0.4 mg 24 hr capsule Take 1 Capsule by mouth daily. Take 30 mins after same meal every day. Active sennosides (SENNA ORAL) Take by mouth. Active UNABLE TO FIND MOMETASONE FUROATE EX Apply topically. Active Active Problems Problem Noted Date Diagnosed Date Cancer with unknown primary site 11/11/2023 Paraesophageal hernia 11/11/2023 Overview (02/04/2024): Last Assessment & Plan: 73-year-old male lives at a care home with giant type IV paraesophageal hernia that has only moderate symptoms of regurgitation occurring intermittently. He does not have dysphagia chest pain or epigastric pain with eating. He also has the diagnosis now of metastatic cancer in the bone lesions of unknown primary. Without this diagnosis I probably would recommend surgical correction of his hernia but given metastatic cancer I do not think this is quite worth it when looking at the overall picture and his symptoms. He was here with his watch crystal grinder who told me that he has an appointment with medical oncology at [facility] up and a PET scan shortly after that. My recommendation around the hernia was dietary modification which includes more frequent smaller meals throughout the day, softer foods, chew your food really well, no straws or carbonated beverages, and no eating or drinking within 3 hours of going to bed or lying down. He can follow-up with me on an as-needed basis moving forward. Rib fractures 11/11/2023 Asthma 11/10/2023 Bipolar disorder 11/10/2023 BPH (benign prostatic hyperplasia) 11/10/2023 HTN (hypertension) 11/10/2023 Hyperlipidemia 11/10/2023 Obese 11/10/2023 Tremor 11/10/2023 Encounters Date Type Department Care Team Description 03/09/2024 1:30 PM EST Consult Orthopedic Surgery - [address] [address] Didier Brown, DPM Dermatophytosis of nail (Primary Dx); Type 2 diabetes mellitus without complication, with long-term current use of insulin ([facility]) from Last 3 Months Immunizations Name Administration Dates Next Due Moderna SARS-CoV-2 COVID-19, mRNA, LNP-S, preservative free 06/21/2020,05/24/2020 Social History Tobacco Use Types Packs/Day Years Used Date Smoking Tobacco: Never Assessed Sex and Gender Information Value Date Recorded Sex Assigned at Not on file Gender Identity Not on file Sexual Orientation Not on file Job Start Date Occupation Industry Not on file Not on file Not on file Last Filed Vital Signs Vital Sign Reading Time Taken Comments Blood Pressure 149/85 11/11/2023 10:54 AM EDT Si tting L Arm Pulse 96 11/11/2023 10:54 AM EDT Temperature - - Respiratory Rate - - Oxygen Saturation - - Inhaled Oxygen Concentration - - Weight 78 kg (172 lb) 03/09/2024 1:52 PM EST Height 165.1 cm (5' 5 ) 03/09/2024 1:52 PM EST Body Mass Index 28.62 03/09/2024 1:52 PM EST Plan of Treatment Upcoming Encounters Date Type Department Care Team (Late st Contact Info) Description 06/07/2024 1:15 PM EDT Office Visit Orthopedic Surgery - [place] [address] [address] Didier Brown, DPM [address] [address] Health Maintenance Due Date Last Done Comments Diabetes: Annual Foot Exam 1962 Diabetes: Annual Retina Eye Exam 1962 RSV Immunization Patients 60+ Years Old (1 - Risk 60-74 years 1-dose series) 2012 COVID-19 Vaccine ( season) 2023 07/20/2023, 05/25/2023, 12/16/2021, Additional history exists Influenza Vaccine (#1) 2023 , 01/21/2021, 02/01/2019, Additional history exists Abdominal Aortic Aneurysm (AAA) Screen 01/01/2024 Colorectal Cancer Screening: Colonoscopy 01/01/2024 Falls Risk Assessment 01/01/2024 Medicare Annual Wellness Visit 01/01/2024 Social Influencers of Health Screening 01/01/2024 Diabetes: Annual Urine Albumin-Creatinine Ratio (uACR) 03/09/2024 Diabetes: Blood Sugar Control Test (HGBA1C) 04/29/2024 10/28/2023, 2021 Depression Screening 10/27/2024 10/28/2023 Diabetes: Annual GFR (Glomerular Filtration Rate) 02/25/2025 02/26/2024, 02/19/2024, 02/05/2024, Additional history exists Hypertension/CHF/CAD Annual BMP Blood Test 02/25/2025 02/26/2024, 02/19/2024, 02/05/2024, Additional history exists DTaP,Tdap,and Td Vaccines (3 - Td or Tdap) 06/23/2026 06/23/2016, 04/11/2004 Cholesterol Screening (Lipid Panel) 11/15/2028 11/16/2023, 2021 Pneumococcal Vaccine: 65+ Years Completed 04/16/2018, 01/13/2018, 01/13/2018 Hepatitis C Screening Completed 2021, 022 Zoster Vaccines Completed 07/10/2021, 05/09/2021 HIB Vaccines [...] on patient's age to complete this topic MMR Vaccines Aged Out No longer eligi ble based on patient's age to complete this topic Meningococcal ACWY Vaccine Aged Out N o longer eligible based on patient's age to complete this topic RSV Immunization Patients Under 20 months Aged Out No longer eligible based on patient's age to complete this topic Varicella Vaccines Aged Out No longer eligible based on patient's age to complete this topic Procedures Procedure Name Priority Date/Time Associated Diagnosis Comments ANNUAL BMP BLOOD TEST Routine 09/30/2023 HEPATITIS C SCREENING Routine 2021 HEMOGLOBIN A1C Routine 2021 LIPID PANEL Routine 2021 from Last 3 Months or Most Recently Relevant to Health Maintenance Results * Annual BMP Blood Test (09/30/2023) Annual BMP Blood Test abstracted Historical Provider MD MIRIAM JORGE E * Hepatitis C Screening (2021) Pathologist [facility] Hepatitis C Screening abstracted Historical Provider MD MIRIAM JORGE E * Hemoglobin A1c (2021) Pathologist [facility] Hemoglobin A1C 0.0 % Comment:no interpretation, a bstracted Blood Venous blood specimen / Unknown Historical Provider LAB BLOOD ORDERAB LES * Lipid panel (2021) Pathologist [facility] LDL/HDL Ratio 0 Comment:no interpretation, a bstracted Triglycerides 0 mg/dL Comment:no interpretation, a bstracted Cholesterol 0 mg/dL Comment:no interpretation, a bstracted HDL 0 mg/dL Comment:no interpretation, a bstracted LDL Cholesterol 0 mg/dL Comment:no interpretation, a bstracted Blood Venous blood specimen / Unknown Historical Provider LAB BLOOD ORDERAB LES from Last 3 Months or Most Recently Relevant to Health Maintenance Care Teams Clerk Manager Relationship Specialty Start Date End Date Madonna Yousif MD [address] [place] [address] PCP - General 10/29/23
--- OUTSIDE RECORDS SUMMARY | 2024-04-22 12:11 | XMS_ITS | Encounter Summary ---
Author Organization [employer] Address [address] [place] [address] Care Team Providers Care Rehab Physician Name Role Phone Madonna Yousif MD Primary Care Provider [phone] Reason for Visit * Reason Onset Date Comments Hospital Follow-up 09/18/2023 Encounter Details Date Type Department Care Team ([facility] st Contact Info) Description 09/18/2023 Telephone [facility] MEDICINE [address] [place] [address] Madonna Yousif MD [address] [place] [address] Hospital Follow-up Social History Tobacco Use Types Packs/Day Years [...] * Telephone Encounter - Kathryn Jackson - 09/18/2023 3:05 PM EDT Tc from [facility] returning call and requesting a call back. Please return call to [phone] * Telephone Encounter - Wing Uday RN - 09/18/2023 2:22 PM EDT Tc to [facility] to scheduled pt for urgent HDF due to medications that will run out over the weekend. Unable to reach [facility]. Left message for her to call back. * Telephone Encounter - Krzysztof Lepe - 09/18/2023 1:56 PM EDT Tc from [facility] from [facility] request for a appt as soon as possible states patient only haves enough Metformin 500mg 2 times a day and other medications that will last for the weekend * Telephone Encounter - Rj Vasquez - 09/18/2023 10:32 AM EDT Tc from [employer] [facility] requesting a HDF appt. Hospital: [facility] Date of admission: 08/17 Transferred to Rehab: 08/28 Rehabilitation Facility: [facility] Discharge date: 09/16 Diagnosed: Enumerable sclerotic bone lesion, esophageal hernia and newly diagnosed diabetic Pt was admitted to [facility] for a fall and due to diagnoses listed above was transferred to [facility] for further treatment. documented in this encounter Plan of Treatment Not on file documented as of this encounter Visit Diagnoses Not on filedocumented in this encounter Additional Health Concerns Assessment Noted Time PHQ-9 Depression Total Score: 6 07/15/19 23 2:57 PM EDT documented as of this encounter Care Teams Rehab Physician Relationship Specialty Start Date End Date Madonna Yousif MD [address] [place] [address] PCP - General Family Medicine 07/25/21 documented as of this encounter
--- OUTSIDE RECORDS SUMMARY | 2024-04-22 12:11 | XMS_ITS | Encounter Summary ---
Author Organization [employer] Address [address] [place] [address] Care Team Providers Care Manager Inventory Management Name Role Phone Madonna Yousif MD Primary Care Provider [phone] Reason for Visit * Reason Comments Med Change Request Encounter Details Date Type Department Care Team ([facility] Contact Info) Description 11/02/[address] [facility] PEDS [address] [place] [address] Madonna Yousif MD [address] [place] [address] Type 2 diabetes mellitus without complication, without long-term current use of insulin ([facility]) Social History Tobacco Use Types Packs/Day Years [...] documented as of this encounter Visit Diagnoses Diagnosis Type 2 diabetes mellitus without complication, without long-term current use of insulin ([facility]) documented in this encounter Additional Health Concerns Assessment Noted Time PHQ-9 Depression Total Score: 7 10/28/19 24 11:45 AM EDT documented as of this encounter Care Teams Manager Inventory Management Relationship Specialty Start Date End Date Madonna Yousif MD [address] [place] [address] PCP - General Family Medicine 07/25/21 documented as of this encounter
[2024-04-22 13:30] LABS: MANUAL DIFF FLAG NO
[2024-04-22 13:51] LABS: Basophils Percent Auto 0.4 % (0-2); Eosinophils Percent Auto 0.5 % (0-4); Hemoglobin 11.4 g/dl (14.0-18.0); Imm Gran Abs Auto 0.06 X10*3/uL (0.00-0.03); Imm Gran Pct Auto 0.8 % (0.0-0.4); Lymphocytes Absolute Auto 0.7 X10*3/uL (1.2-4.9); Lymphocytes Percent Auto 9.2 % (20-40); Mean Corpuscular HGB Conc 31.7 g/dl (31.0-36.0); Mean Corpuscular Hemoglobin 27.4 pg (27.0-33.0); Mean Corpuscular Volume 86.5 fL (80.0-98.0); Monocytes Percent Auto 12.3 % (2-11); Neutrophils Percent Auto 76.8 % (45-73); Platelet Count 146 X10*3/uL (160-400); Red Blood Count 4.16 X10*6/uL (4.60-5.80); Red Cell Distribution Width 17.9 % (11.0-16.0); White Blood Count 7.9 X10*3/uL (4.8-10.8)
[2024-04-22 14:06] LABS: Alanine Aminotransferase 11 U/L (0-40); Albumin Level 3.5 g/dL (3.5-5.0); Alkaline Phosphatase 100 U/L (39-117); Anion Gap 17 (12-20); Aspartate Amino Transferase 21 U/L (5-37); Bilirubin Total 0.7 mg/dL (0.0-1.0); Blood Urea Nitrogen 16 mg/dL (9-16); Calcium 8.6 mg/dL (8.4-10.2); Carbon Dioxide 25 mmol/L (22-29); Chloride 108 mmol/L (96-108); Estimated Glomerular Filt Rate > 60; Glucose Random 125 mg/dL (60-115); Potassium 3.7 mmol/L (3.3-5.1); Sodium 146 mmol/L (135-145); Total Protein 6.3 g/dL (6.5-8.0)
== END 2024-04-22 11:26 | disposition home or self-care (01) ==
LOC: HO.HMGCLDS 11:25
PROVIDERS: Visit Provider Internal Medicine Medical Oncology
DX: Z13.89 Encounter for screening for other disorder (principal)
CPT/HCPCS: 36415; 80053; 85025

== ENCOUNTER 2024-04-25 11:31 | Inpatient (IN) | payer MEDICARE, MEDICAID, SELFPAY ==
--- NOTE | ~2024-04-25 | XR_ITS ---
CLINICAL HISTORY: OG tube placement 1 view chest x-ray Comparison: CR - XR CHEST 1V - 05/10/24 06:[address]/SR - CT CHEST WO IV CON - 05/01/24 14:00 EST Findings: Heterogeneous airspace and interstitial opacities are present within the bilateral lungs without change. Probable bilateral pleural effusions without change. There is a right-sided central venous port with its tip within the right atrium without change. The heart is partially obscured, grossly unchanged. There are multiple foci of sclerosis within bony structures compatible with metastatic disease, without change. No acute fracture. IMPRESSION: 1. There is a very large hiatal hernia. The majority of the stomach is above the diaphragm. The nasogastric tube is at the level of the proximal to mid stomach. As the course of the tube parallels the course of the left mainstem bronchus, consider an oblique or lateral view to completely exclude intrapulmonary placement. 2. The endotracheal tube has been advanced and is now 1.5 cm above the toribio. Recommend retracting by 2 cm. This document has been electronically signed by: Melanie Abreu MD on 05/10/2024 13:17:32
--- NOTE | ~2024-04-25 | XR_ITS ---
EXAMINATION: XR CHEST CLINICAL INFORMATION: ET tube COMPARISON: Earlier same day at 6:51 AM and at 5:[address] chest dated prior day. TECHNIQUE: Frontal view of the chest was obtained. FINDINGS: ET tube readjusted, now lies appropriately position approximately 3.1 cm above the toribio. Enteric tube in position, tip and sidehole likely within a large hiatus hernia/intrathoracic stomach. Right chest port in place, tip terminating in the right atrium. There is no pneumothorax. Patchy parenchymal opacities bilateral lungs, most confluent right base unchanged. Tiny effusions suspected. Osseous blastic metastatic disease present. XR/XR chest 1V IMPRESSION: 1. ET tube now in satisfactory position. 2. Enteric tube likely within a large hiatus hernia/intrathoracic stomach. 3. Stable right chest port. 4. Pulmonary abnormalities unchanged. No pneumothorax. 5. Blastic osseous metastases. Electronically signed by: Rachid Coombs MD 05/02/2024 11:00 AM [facility]
--- NOTE | ~2024-04-25 | XR_ITS ---
CLINICAL HISTORY: ETT placement 1 view chest x-ray Comparison: CR/NV/SR - XR CHEST 1V - 05/02/24 10:19 EST CR - XR CHEST 1V - 05/02/24 06:51 EST Findings: The endotracheal tube terminates 2 cm above the toribio. Right IJ approach chest port in unchanged position. An enteric tube has been removed. Patchy bilateral airspace disease. Elevation of the left hemidiaphragm likely related to gaseous distention of the loop of bowel. New line no acute osseous findings. IMPRESSION: 1. Endotracheal tube terminates 2 cm above the toribio. Unchanged right chest port. Enteric tube removed. 2. Patchy bilateral airspace disease. 3. Gaseous distention of bowel beneath the left hemidiaphragm. This document has been electronically signed by: Sol Hill MD on 05/10/2024 07:03:38
--- NOTE | ~2024-04-25 | XR_ITS ---
CLINICAL HISTORY: shortness of breath 1 view chest x-ray Comparison: CT/SR - CT CHEST WO IV CON - 05/01/24 14:00 EST CR - XR CHEST 1V - 04/30/24 08:29 EST Findings: Right-sided Port-A-Cath remains in place with tip projected over the right atrium. Continued elevation of the left hemidiaphragm. Cardiac silhouette is moderately enlarged. Mixed areas of interstitial and alveolar prominence within the lungs is not appreciably changed compared to prior study. Small left pleural effusion. Extensive areas of bony sclerosis throughout the skeletal system indicative of bony metastatic disease. IMPRESSION: Continued multifocal areas of consolidation throughout the lungs most characteristic of multifocal pneumonia. Component of volume overload is also suggested. Continued diffuse bony metastatic disease. This document has been electronically signed by: Christiano Tejada MD on 05/02/2024 06:13:15
--- NOTE | ~2024-04-25 | XR_ITS ---
EXAMINATION: XR ABDOMEN KUB CLINICAL INDICATION: OG tube placement verification COMPARISON: None. Chest CT dated prior day. TECHNIQUE: AP view of the abdomen. FINDINGS: Endotracheal tube in good position. ET tube extends into the intrathoracic stomach. This does not course into the mainstem bronchus. Right chest port in stable position. Normal/nonspecific bowel gas pattern. No free intraperitoneal air on this limited radiograph. Contrast seen within the transverse colon and splenic flexure. Only abdomen imaged, and pelvis was excluded. Patchy parenchymal opacities most confluent right base. Small pleural effusions. Blastic osseous metastatic disease. XR/XR KUB IMPRESSION: 1. Enteric tube terminates within a large hiatus hernia/intrathoracic stomach. 2. ET tube in good position. 3. Right chest port in stable position. 4. Right basilar parenchymal lung opacity unchanged. Small pleural effusion suspected. 5. No acute findings in the abdomen. Electronically signed by: Rachid Coombs MD 05/02/2024 11:03 AM [facility]
--- NOTE | ~2024-04-25 | CT_ITS ---
CLINICAL HISTORY: persistent hypoxia CT chest without contrast Comparison: CT/SR - CT CHEST W IV CON - 04/26/24 14:58 EST Findings: There is a right-sided Port-A-Cath with its tip at the junction between the right atrium and the inferior vena cava. Small thyroid gland. Multiple small mediastinal lymph nodes without change. No enlarged lymph nodes. Moderate left pleural effusion with slight interval increase in size. Small right pleural effusion with interval increase in size. There are heterogeneous ground-glass opacities within the bilateral lungs and multifocal bronchiolar inflammation with worsening. There is a very large hiatal hernia containing the entire stomach, without significant change. There is severe thickening of the gastric antrum and distal body of the stomach without change. There is a small amount of fluid contained within the hernia sac without change. The stomach is moderately distended with gas, fluid and ingested material. The degree of distention is also without significant change. The esophagus is distended with fluid. There are gallstones within the gallbladder. There are bilateral kidney cysts. There is a trace amount of free fluid within the upper abdomen. There are innumerable sclerotic lesions within visualized bony structures, without change. There are multiple subacute appearing right-sided rib fractures without change. IMPRESSION: 1. Severe thickening of the gastric antrum and distal body of the stomach, compatible with known neoplasm. Moderate distention of the stomach is present which could suggest a mild partial degree of obstructive change. This is similar to the prior study. 2. The esophagus is distended with fluid. 3. There are bilateral pleural effusions, left larger than right, with worsening. 4. There are bilateral lung infiltrates. Aspiration could be considered. 5. There is a very large hiatal hernia containing the entire stomach without change. 6. Extensive severe metastatic disease to the skeleton without change. This document has been electronically signed by: Melanie Abreu MD on 05/01/2024 15:14:43
--- NOTE | ~2024-04-25 | CT_ITS ---
EXAMINATION: CT ABDOMEN PELVIS WITH IV CONTRAST HISTORY: abd pain/gastric tumor COMPARISON: Comparison is made with the prior examination dated 04/05/2024. TECHNIQUE: CT scan of the abdomen and pelvis was performed following administration of 85 mL Omnipaque 350 using standard departmental protocol. Coronal and sagittal reformatted images were generated and reviewed. The patient received oral contrast material. This CT exam was performed with one or more of the following dose reduction techniques: automated exposure control, adjustment of the mA and/or kV according to patient size, use of iterative reconstruction technique. DLP: 431 mGy-cm FINDINGS: LOWER CHEST: The visualized right lung base is clear. The left lung base is not visualized due to an intrathoracic stomach. There are small bilateral pleural effusions. CARDIOVASCULATURE: The heart is normal in size. There is no pericardial effusion. LIVER: The liver is normal in size and contour. No liver mass is identified. The hepatic and portal veins are patent. GALLBLADDER / BILE DUCTS: There is cholelithiasis. There may be a small amount of pericholecystic fluid. There is no intra or extrahepatic biliary ductal dilatation. SPLEEN: The spleen is normal in size. No focal splenic lesion is identified. PANCREAS: The pancreas is unremarkable in appearance. ADRENAL GLANDS: Within normal limits. KIDNEYS/RETROPERITONEUM: No renal calculi are identified. There is no hydronephrosis. There are multiple bilateral renal cysts, the largest of which measures 2.9 cm at the lower pole of the right kidney. LYMPH NODES: No abdominal or pelvic lymphadenopathy. VASCULATURE: The abdominal aorta demonstrates atherosclerotic calcification, but is normal in caliber. MESENTERY/PERITONEUM: There is a small amount of free fluid in the upper abdomen. No masses. There is no free intraperitoneal gas. STOMACH: The entire stomach is again noted to be located within the left chest. The entire stomach is not included in the [id number], however. Again seen is marked thickening of the pylorus of the stomach. SMALL BOWEL: The small bowel is normal in caliber. Contrast material is seen in the small bowel located in lack of gastric outlet obstruction. COLON: There is extensive diverticulosis of the descending and sigmoid colon, without evidence of diverticulitis. APPENDIX: Normal. URINARY BLADDER/PELVIC ORGANS: The urinary bladder is unremarkable. The prostate is enlarged. BONES / SOFT TISSUES: Again seen is diffuse sclerotic osseous metastatic disease. CT/CT abdomen pelvis w IV con IMPRESSION: 1. Intrathoracic stomach which is incompletely imaged. Again seen is marked wall thickening of the pylorus of the stomach which could represent neoplasm or gastritis/ulcer disease. 2. Diffuse osseous metastatic disease. 3. Tiny bilateral pleural effusions. Small amount of free fluid in the upper abdomen. 4. Cholelithiasis. Diverticulosis of the descending and sigmoid colon, without evidence of diverticulitis. Electronically signed by: Jose Beyer MD 04/26/2024 03:34 PM [facility] [place]
--- NOTE | ~2024-04-25 | XR_ITS ---
CLINICAL HISTORY: sob 1 view chest x-ray Comparison: CR/SR - XR CHEST 2V - 04/29/24 10:53 EST Findings: Right chest wall port catheter is unchanged in position. The left heart border is obscured due to an elevated left hemidiaphragm. Bilateral reticulonodular opacities are similar to prior exam. There has been interval increase of left mid lung atelectasis. Scattered sclerotic lesions are seen throughout the visualized bones. IMPRESSION: 1. Interval increase of left mid lung atelectasis. 2. Scattered bilateral reticulonodular opacities, similar to prior exam. This may be secondary to metastatic disease or an infectious/inflammatory process. 3. Scattered sclerotic lesions throughout the visualized bones consistent with osseous metastasis. This document has been electronically signed by: Taniya Alicia on 04/30/2024 09:02:10
--- NOTE | ~2024-04-25 | CT_ITS ---
EXAMINATION: CT CHEST WITH CONTRAST CLINICAL INFORMATION: Rule out torsion. History of paraesophageal hernia. COMPARISON: None available. TECHNIQUE: Multidetector volumetric CT imaging of the chest was obtained after the administration of 85 mL of Omnipaque 350 intravenous contrast without immediate adverse reactions. Axial MIP volume rendering provided. Sagittal and coronal reformatted images were obtained. This CT examination was performed using dose optimization techniques as appropriate, variously including the following: *Automated exposure control *Adjustment of mA and/or kV according to patient size (this includes techniques or standardized protocols for targeted exams where dose is matched to indication/reason for exam; i.e. extremities or head) *Use of iterative reconstruction technique FINDINGS: CAMPUS COORDINATOR: Moderate opacity left lung base. Otherwise left upper and right lung is expanded. LUNGS: There is elevated hemidiaphragm with left lower lobe consolidation/atelectasis. Patchy atelectatic changes are seen in bilateral upper lobes. MEDIASTINUM: The heart size and the great vessels are normal caliber. The central trachea and the bronchi are widely patent. Thyroid lobes are symmetrical. No abnormal size mediastinal hilar lymph nodes seen. A right central venous port is seen with its tip in distal SVC. There is a moderate size hiatal hernia PLEURA: Small left pleural effusion is seen. There is a tiny right pleural effusion as well. AXILLA: Small shotty lymph nodes seen in the mediastinum. UPPER ABDOMEN: Visualized liver, spleen, pancreas and bilateral adrenal glands are unremarkable. OSSEOUS STRUCTURES: Diffuse skeletal sclerotic metastatic disease is noted. CT/CT chest w IV con IMPRESSION: There is elevated hemidiaphragm with left lower lobe consolidation/atelectasis and small left effusion. No lung nodules seen. Metastatic skeletal sclerotic disease. Fleischner guidelines were followed. Electronically signed by: Ovidio Hopkins MD 04/26/2024 03:53 PM EST
--- NOTE | ~2024-04-25 | XR_ITS ---
EXAMINATION: XR CHEST 2 VIEWS HISTORY: follow up pneumonia, hypoxia COMPARISON: Comparison is made with the prior examination dated 02/20/2024. Correlation is also made with a chest CT dated 04/26/2024. FINDINGS: PA and lateral views of the chest are submitted. A right-sided port is unchanged in position. There is prominence of the pulmonary vasculature, consistent with congestion. Again seen is marked elevation of the left hemidiaphragm. There are small bilateral pleural effusions. There is no pneumothorax. Heart size difficult to assess due to the elevated left hemidiaphragm. There are sclerotic foci within the bones consistent with metastatic disease. XR/XR chest 2V IMPRESSION: 1. Pulmonary vascular congestion and small bilateral pleural effusions. 2. Osseous metastatic disease. Electronically signed by: Jose Beyer MD 04/29/2024 11:04 AM [facility]
--- NOTE | ~2024-04-25 | US_ITS ---
EXAMINATION: US ABDOMEN LIMITED CLINICAL INFORMATION: Shock liver. COMPARISON: No prior ultrasound. Correlation made with CT abdomen and pelvis 11/24/2024. TECHNIQUE: Real-time imaging of the right upper quadrant abdominal viscera. FINDINGS: PANCREAS: Not imaged. LIVER: The liver is normal in size. The liver contour is normal. Parenchymal echogenicity is normal. No focal hepatic lesion. There is no intrahepatic biliary duct dilatation seen. There is small volume perihepatic ascites. GALLBLADDER: Gallbladder demonstrates intraluminal stones, wall thickening and edema measuring up to 10 mm, with pericholecystic fluid present. Negative sonographic Durbin sign. COMMON BILE DUCT: Normal in caliber measuring 0.8 cm in diameter. Incidental note made of a small right pleural effusion. US/US abdomen limited IMPRESSION: 1. Normal-appearing liver by sonography although there is small volume perihepatic ascites present. No focal lesion. 2. Cholelithiasis, gallbladder wall thickening and edema, with pericholecystic fluid present. Negative sonographic Durbin sign. Findings are equivocal for acute cholecystitis and correlation is recommended. Gallbladder had a similar appearance on the recent CT examination. 3. No biliary ductal dilatation. Electronically signed by: Rachid Coombs MD 05/03/2024 01:53 PM [facility] [place], [place]
--- NOTE | ~2024-04-25 | XR_ITS ---
CLINICAL HISTORY: ETT OGT 1 view chest x-ray Comparison: CR - XR CHEST 1V - 05/02/24 05:03 EST Findings: Study performed at 6:51 a.m. Patient has been intubated. Endotracheal tube is low in position within the proximal right mainstem bronchus. Retraction by 2-3 cm is suggested. Enteric sump tube has been placed. Tip projects over the medial aspect of the left lower chest, likely within a hiatal hernia subjacent to the elevated left hemidiaphragm. Increasing areas of consolidation within the lungs bilaterally suggest worsening edema and/or infiltrate. Continued extensive bony metastatic disease. IMPRESSION: 1. Endotracheal tube low in position within the proximal right mainstem bronchus. Retraction is suggested. 2. Enteric sump tube is likely within the patient's hiatal hernia. 3. Worsening bilateral infiltrates and/or edema. This document has been electronically signed by: Christiano Tejada MD on 05/02/2024 07:13:13
[2024-04-25 11:54] VITALS: BP 98/57; PULSE 88; RESP 20; TEMP 36.7; O2SAT 95; BMI 29.5
--- NOTE | 2024-04-25 12:52 | PC.NURSE ---
reported to elayne DUBOIS that pts mag was 1.4 with oncology today
--- NOTE | 2024-04-25 12:54 | ED_ITS ---
HPI - General Adult General Chief complaint: Nausea/Vomiting/Diarrhea Stated complaint: nausea/vomiting Time Seen by Provider: 04/25/24 12:53 Source: patient Mode of arrival: wheelchair Limitations: no limitations History of Present Illness ED Provider: Deidre Mathias PA-C HPI narrative: Patient is a 74 year old assigned male at with a history of metastatic gastric carcinoma on chemo following with Dr. Shah, HTN, Schizoaffective disorder, and CAD presenting to the emergency department today with persistent nausea, vomiting, and low blood pressure. Patient was seen at Dr. Shah's office today where he had multiple episodes of vomiting and was given IV Zofran + Fluids but continued vomiting. Patient denies any dizziness, lightheadedness, abdominal pain, fever, chills, blurry vision, double vision, loss of vision, chest pain, difficulty breathing, shortness of breath, back pain, night sweats, pain with urination, increased urinary frequency, increased urinary urgency, bl ood in his urine or stool, syncope or a near syncopal episode, recent trauma or falls, bowel incontinence, bladder incontinence, or any other complaints at this time. Relieving factors: none Exacerbating factors: none Associated symptoms: nausea/vomiting Treatments prior to arrival: other (1 liter of NS + Zofran in Dr. Shah's office) Related Data Home Medications ?Medication ?Instructions ?Recorded ?Confirmed atorvastatin 20 mg tablet 20 mg PO DAILY 10/11/20 04/25/24 olanzapine 20 mg tablet 20 mg PO BEDTIME 10/11/20 04/25/24 albuterol sulfate 90 mcg/actuation 2 puff inhalation Q6H PRN Wheezing 12/20/20 04/25/24 aerosol inhaler cetirizine 10 mg tablet 10 mg PO BEDTIME 12/20/20 04/25/24 fluticasone propionate 50 2 spray intranasal DAILY 12/20/20 04/25/24 mcg/actuation nasal spray,suspension gabapentin 300 mg capsule 300 mg PO TID PRN nerve pain 11/13/23 04/25/24 acetaminophen 325 mg tablet 650 mg PO Q8H PRN pain 12/08/23 04/25/24 camphor 3.1 %-methyl salicylate 10 3.1 patch topical BID 12/08/23 04/25/24 %-menthol 6 % topical patch (Salonpas) carvedilol 12.5 mg tablet 12.5 mg PO BID 12/08/23 04/25/24 cholecalciferol (vitamin D3) 50 50 mcg PO DAILY 12/08/23 04/25/24 mcg (2,000 unit) capsule ferrous sulfate 325 mg (65 mg 325 mg PO MOWEFR 12/08/23 04/25/24 iron) tablet finasteride 5 mg tablet 5 mg PO DAILY 12/08/23 04/25/24 prednisolone acetate 1 % eye 1 drp ophthalmic (eye) DAILY 12/08/23 04/25/24 drops,suspension tamsulosin 0.4 mg capsule 0.8 mg PO DAILY 12/08/23 04/25/24 fluticasone furoate 200 1 ea inhalation DAILY 12/29/23 04/25/24 mcg-vilanterol 25 mcg/dose inhalation powder (Breo Ellipta) benztropine 1 mg tablet 1 mg PO BID 04/25/24 04/25/24 melatonin 10 mg capsule 10 mg PO BEDTIME 04/25/24 04/25/24 omeprazole 20 mg capsule,delayed 20 mg PO BID@0630,1630 04/25/24 04/25/24 release ondansetron 8 mg disintegrating 8 mg PO Q8H PRN Nausea And Vomiting 04/25/24 04/25/24 tablet sennosides 8.6 mg tablet (Senokot) 8.6 mg PO BEDTIME PRN Constipation 04/25/24 04/25/24 Previous Rx's ?Medication ?Instructions ?Recorded dexamethasone 4 mg tablet 4 mg PO BID #60 tabs 01/01/24 loperamide 2 mg capsule (Imodium 2 mg PO Q4H PRN Diarrhea #50 caps 02/29/24 A-D) Allergies Allergy/AdvReac Type Severity Reaction Status Date / Time Penicillins [PENICILLINS] Allergy Unknown EYES GET Verified 04/25/24 11:56 RED latex Allergy Unknown Verified 02/20/24 16:36 Review of Systems Constitutional: Constitutional: Reports no additional constitutional complaints, Denies chills, Denies fever(s) and Denies night sweats Eyes: Eyes: Reports no additional eye complaints, Denies blurry vision, Denies change in vision, Denies diplopia, Denies eye discharge, Denies loss of vision and Denies eye pain ENT: Denies dizziness Cardiovascular: Cardiovascular: Reports no additional cardiovascular complaints, Denies chest pain, Denies lightheadedness, Denies Loss of Consciousness and Denies dyspnea Respiratory: Respiratory: Reports no additional respiratory complaints and Denies dyspnea Gastrointestinal: Gastrointestinal: Reports no additional gastrointestinal complaints, Denies abdominal pain, Denies melena, Denies hematochezia, Denies change in bowel habits, Denies change in stool character, Reports nausea and Reports vomiting Genitourinary: Genitourinary: Reports no additional male genitourinary complaints, Denies hematuria, Denies oliguria, Denies difficulty urinating, Denies dysuria, Denies urinary frequency, Denies urinary hesitancy, Denies urinary incontinence and Denies urinary urgency Musculoskeletal: Musculoskeletal: Reports no additional musculoskeletal complaints, Denies numbness and Denies tingling Neurologic: Denies dizziness, Denies loss of vision, Denies numbness and Denies tingling Psychiatric: Psychiatric: Reports no additional psychiatric complaints Endocrine: Endocrine: Reports no additional endocrine complaints Hematologic/Lymphatic: Hematologic/Lymphatic: Reports no additional hematologic/lymphatic complaints Allergic/Immunologic: Allergic/Immunologic: Reports no additional allergic/immunologic complaints [facility] Past Medical History Attestation statement: The following information was validated with the patient. Source: old records reviewed and nursing notes reviewed Medical History Tremor Mild intermittent asthma Coronary artery disease Schizoaffective disorder HTN (hypertension) Heme + stool Surgical History History of esophagogastroduodenoscopy (EGD) Hx of colonoscopy Family History Family History Unknown No problems noted. Mother Colon cancer Social History Social History Household Members: Other Household Members Other:: skilled nursing Housing: House Housing Other:: skilled nursing Are you a primary career development engineer to a significant other at home: No Do you presently have visiting nurse or other home services: No Alcohol intake: never Patient Tobacco Use Status: Former Tobacco user service: No Current occupational status: disabled Physical Exam ED Vital Signs: Vital Signs - 24 hr 04/25/24 11:54 Temperature 98.0 F Pulse Rate 88 Respiratory Rate 20 Blood Pressure 98/57 L Pulse Oximetry 95 Oxygen Delivery Method Room Air BMI result Body Mass Index 29.5 Const General: cooperative, no acute distress, alert and awake Nutritional Appearance: well nourished Orientation/consciousness: patient oriented x3 Limitations: no limitations HENMT Head: Yes normal to inspection and Yes atraumatic Ears: hearing grossly normal bilaterally and external ears normal General nose exam: Normal external nose present, no nasal discharge noted and no epistaxis Face and sinus: Yes normal facial exam, No abrasion and No laceration Mouth: Normal oral and palatal mucosa present, no drooling and no muffled voice Eyes General: appearance normal, both eyes and all related structures Periorbital: periorbital findings normal Eyelids: Yes eyelids normal Conjunctivae: conjunctivae normal Pupils: Equal, round and reactive pupils present EOM: EOMs intact bilaterally Neck Neck: Yes normal visual inspection, Yes full ROM and Yes no lymphadenopathy Chest Chest palpation & inspection: normal inspection of the chest Resp Effort & Inspection: normal respiratory effort and able to speak in complete sentences GI Inspection: Yes normal to inspection Neuro General: patient oriented x3 and moves all extremities Cranial nerves: Yes Equal, round and reactive pupils present Cognition (Neuro): normal cognition Extrem General: Yes normal to inspection, Yes full ROM and Yes capillary refill normal Psych Appearance: grossly normal Mental Status: mental status grossly normal Affect: normal affect Attitude: cooperative Thought process: Normal thought process present Thought content: Normal thought content present Insight: Good insight present (Psych) Medications Administered Generic Name Dose Route Start Last Admin Trade Name Freq PRN Reason Stop Dose Admin Potassium Chloride/Sodium Chloride 40 meq in 1,000 mls @ 100 mls/hr 04/25/24 15:15 04/25/24 15:28 Kcl 40 Meq In 0.9 % Sodium Chl IVCONT 100 mls/hr .Q10H YAJAIRA Administration Morphine Sulfate 3 mg 04/25/24 18:13 04/25/24 18:21 Morphine Sulfate 4 Mg/Ml Cartridge IVPUSH 3 mg Q4H PRN Administration Pain, Severe (Pain Scale 7-10) Protocol Pantoprazole Sodium 40 mg 04/25/24 16:30 04/25/24 18:15 Pantoprazole Sodium 40 Mg/10 Ml Vial IVPUSH 40 mg BID@0630,1630 YAJAIRA Administration Sodium Chloride 3 ml 04/25/24 16:00 04/25/24 15:23 0.9 % Sodium Chloride Flush 3 Ml Syringe IVFLUSH Not Given QSHIFT YAJAIRA Discontinued Medications Generic Name Dose Route Start Last Admin Trade Name Sharon PRN Reason Stop Dose Admin Sodium Chloride 1,000 mls @ 999 mls/hr 04/25/24 13:00 04/25/24 14:37 Ns IV 04/25/24 14:00 Infused .Q1H1M YAJAIRA Infusion Magnesium Sulfate 2 gm in 50 mls @ 25 mls/hr 04/25/24 12:54 04/25/24 16:18 Magnesium Sulfate/H2o IV 04/25/24 14:53 Infused ONCE ONE Infusion Metoclopramide HCl 10 mg 04/25/24 12:54 04/25/24 13:25 Metoclopramide Hcl 10 Mg/2 Ml Vial IVPUSH 04/25/24 12:55 10 mg ONCE ONE Administration Medical Decision Making Medical Decision Making MDM Narrative: Patient is a 74 year old assigned male at with a history of metastatic gastric carcinoma on chemo following with Dr. Shah, HTN, Schizoaffective disorder, and CAD presenting to the emergency department today with persistent nausea, vomiting, and low blood pressure. Patient's physical exam was unremarkable. Patient's blood work showed hypomagenesemia. Patient was given IV fluids and anti-emetics however, he remained nauseous and continued to have intermittent vomiting. Patient was given replacement IV magnesium. Dr. Shah requested the patient be admitted to the hospital for continued IV hydration and anti-emetics. I spoke to the hospitalist team who agreed to admission. I explained my physical exam findings as well as all test results to the patient. I answered all questions asked by the patient. Patient verbalized understanding and agreement with this treatment plan and admission. Differential Diagnosis Differential Diagnoses: The differential diagnosis associated with the presentation includes Persistent nausea Persistent vomiting Admission/Observation Consideration of admission/observation: Escalation of care including admission/observation considered Patient admitted as noted in the MDM Rationale portion of this note. Consult Healthcare Provider Management of the patient was discussed with: Hospitalist (agreed to admission as noted in the MDM Rationale portion of this note.) and [facility] (spoke to Dr. Shah from Heme/onc as noted in the MDM Rationale portion of this note.) Lab Data [facility] Lab Attestation statement: I reviewed the patient's lab results. Outpatient lab results from 04/25/2024 were reviewed. Critical Care Time Critical Care Time Critical Care Time: Yes Total Critical Care Time: 34 Attestation: I spent 34 minutes of Critical Care Time with this patient. This does not include time spent on separately reported billable procedures. Discharge Plan Discharge Clinical Impression: Nausea and vomiting, Hypomagnesemia Patient Disposition: Admitted As Inpatient Interventions: Admission Worksheet (ED) Last Done: 04/25/24 16:22 Discharge Date/Time: 04/25/24 17:44
[2024-04-25] MEDS: 0.9 % Sodium Chloride 1,000 ML 999 ML IV (13:24)
[2024-04-25] MEDS: Metoclopramide HCl 10 MG/2 ML VIAL IVPUSH (13:25)
--- OUTSIDE RECORDS SUMMARY | 2024-04-25 13:26 | XMS_ITS | Encounter Summary ---
Author Organization [employer] Address [address] [place] [address] Care Team Providers Care Jail Guard Name Role Phone Madonna Yousif MD Primary Care Provider [phone] Reason for Visit * Reason Onset Date Comments Med Refill 06/09/2023 Encounter Details Date Type Department Care Team ([facility] st Contact Info) Description 06/09/2023 Telephone [facility] MEDICINE [address] [place] [address] Madonna Yousif MD [address] [place] [address] Med Refill Social History Tobacco Use Types [...] MCG/ACT nasal spray To be sent to: [facility]/pharmacy #[id number] documented in this encounter Plan of Treatment Not on file documented as of this encounter Visit Diagnoses Not on filedocumented in this encounter Additional Health Concerns Assessment Noted Time PHQ-9 Depression Total Score: 6 07/15/19 23 2:57 PM EDT documented as of this encounter Care Teams Jail Guard Relationship Specialty Start Date End Date Madonna Yousif MD [address] [place] [address] PCP - General Family Medicine 07/25/21 documented as of this encounter
--- OUTSIDE RECORDS SUMMARY | 2024-04-25 13:26 | XMS_ITS | Encounter Summary ---
Author Organization [employer] Address [address] [place] [address] Care Team Providers Care Combination Welder Apprentice Name Role Phone Madonna Yousif MD Primary Care Provider [phone] Encounter Details Date Type Department Care Team (Late st Contact Info) Description 10/13/2023 Telephone [facility] MEDICINE [address] [place] [address] Madonna Yousif MD [address] [place] [address] Social History Tobacco Use Types Packs/Day Years [...] documented as of this encounter Care Teams Combination Welder Apprentice Relationship Specialty Start Date End Date Madonna Yousif MD [address] [place] [address] PCP - General Family Medicine 07/25/21 documented as of this encounter
--- OUTSIDE RECORDS SUMMARY | 2024-04-25 13:26 | XMS_ITS | Encounter Summary ---
Author Organization [employer] Address [address] [place] [address] Care Team Providers Care Scrap Worker Name Role Phone Madonna Yousif MD Primary Care Provider [phone] Reason for Visit * Reason Comments Med Change Request Encounter Details Date Type Department Care Team ([facility] Contact Info) Description 06/30/2023 Refill [facility] [address] [place] [address] Madonna Yousif MD [address] [place] [address] Social History Tobacco Use Types Packs/Day Years [...] documented as of this encounter Care Teams Scrap Worker Relationship Specialty Start Date End Date Madonna Yousif MD [address] [place] [address] PCP - General Family Medicine 07/25/21 documented as of this encounter
--- OUTSIDE RECORDS SUMMARY | 2024-04-25 13:26 | XMS_ITS | Encounter Summary ---
Author Organization [employer] Address [address] [facility] [address] [place] [address] Care Team Providers Care Culturist Name Role Phone Madonna Yousif MD Primary Care Provider [phone] Reason for Visit * Reason Onset Date Comments Med Refill 07/28/2022 Encounter Details Date Type Department Care Team ([facility] st Contact Info) Description 07/28/2022 Telephone [facility] [address] [place] [address] Madonna Yousif MD [address] [place] [address] Med Refill Social History Tobacco Use Types [...] - 07/28/2022 1:16 PM EDT Tc from [place] staff from [facility] requesting med refill for medication milk [...] documented as of this encounter Care Teams Culturist Relationship Specialty Start Date End Date Madonna Yousif MD [address] [place] [address] PCP - General Family Medicine 07/25/21 documented as of this encounter
--- OUTSIDE RECORDS SUMMARY | 2024-04-25 13:26 | XMS_ITS | Encounter Summary ---
Author Organization [employer] Address [address] [place] [address] Care Team Providers Care Marine Transport Professionals Name Role Phone Madonna Yousif MD Primary Care Provider [phone] Reason for Visit * Reason Onset Date Comments FYI 01/26/2024 Encounter Details Date Type Department Care Team ([facility] st Contact Info) Description 01/26/2024 Telephone [facility] MEDICINE [address] [place] [address] Madonna Yousif MD [address] [place] [address] FYI Social History Tobacco Use Types Packs/Day [...] 01/26/2024 10:55 AM EST Tc from Lucrecia ([facility] Nurse) informing they will fax over an order for Senna 8.6mg medication to be discontinued. Lucrecia indicates order needs to be signed and fax back to her. Pt lives in [facility] home and Lucrecia informs that pt oncologist will manage the medication Senna 8.6mg. Callback number if any questions Lucrecia [phone] documented in this encounter Plan of Treatment Not on file documented as of this encounter Visit Diagnoses Not on filedocumented in this encounter Additional Health Concerns Assessment Noted Time PHQ-9 Depression Total Score: 7 10/28/19 24 11:45 AM EDT documented as of this encounter Care Teams Marine Transport Professionals Relationship Specialty Start Date End Date Madonna Yousif MD [address] [place] [address] PCP - General Family Medicine 07/25/21 documented as of this encounter
--- OUTSIDE RECORDS SUMMARY | 2024-04-25 13:26 | XMS_ITS | Encounter Summary ---
Author Organization [employer] Address [address] [place] [address] Care Team Providers Care Upper Cutter Machine Name Role Phone Madonna Yousif MD Primary Care Provider [phone] Encounter Details Date Type Department Care Team (Late st Contact Info) Description 11/08/2023 Orders Only [facility] MED [facility] PEDS [address] [place], [place] [phone] Xu Weir MD [address] [place] [address] Social History Tobacco Use Types Packs/Day Years [...] documented as of this encounter Care Teams Upper Cutter Machine Relationship Specialty Start Date End Date Madonna Yousif MD [address] [place] [address] PCP - General Family Medicine 07/25/21 documented as of this encounter
--- OUTSIDE RECORDS SUMMARY | 2024-04-25 13:26 | XMS_ITS | Encounter Summary ---
Author Organization [employer] Address [address] [facility] [address] [place] [address] Care Team Providers Care Telecommunication Equipment Repairer Name Role Phone Madonna Yousif MD Primary Care Provider [phone] Encounter Details Date Type Department Care Team ([facility] st Contact Info) Description 12/03/2022 [facility] Information Management [address] [place] [address] Madonna Yousfi MD [address] [place], [place] [phone] Social History Tobacco Use Types Packs/Day Years [...] documented as of this encounter Care Teams Telecommunication Equipment Repairer Relationship Specialty Start Date End Date Madonna Yousif MD [address] [place] [address] PCP - General Family Medicine 07/25/21 documented as of this encounter
--- OUTSIDE RECORDS SUMMARY | 2024-04-25 13:26 | XMS_ITS | Encounter Summary ---
Author Organization [employer] Address [address] [place] [address] Care Team Providers Care Top Cutter Name Role Phone Madonna Yousif MD Primary Care Provider [phone] Encounter Details Date Type Department Care Team (Late st Contact Info) Description 04/05/2024 Orders Only [facility] External Provider, [facility] Social History Tobacco Use Types Packs/Day Years [...] EST Narrative 04/08/2024 11:45 AM EST ? [facility] ?[address] ?[place] [address] ? CT Scan Report ? Signed with Addenda ? Patient: Timothy Muñiz ?MR#: [id number] ?? [id number] ? : 1950 ?Acct:[id number] ? Age/Sex: 74 / M ?ADM Date: 04/05/24 ? Loc: HO.CT ? Attending Dr: Rosemary Shah MD ? Ordering Physician: Rosemary Shah MD ?? Date of Service: 04/05/24 ?? Procedure(s): CT chest w IV con ?? Accession Number(s): [id number] ? cc: Rosemary Shah MD; Madonna Yousif MD ? Report Number: ?? [id number]: Total DLP = ??140.00 mGy-cm ?ADDENDUM ?? This document has been electronically signed by: Carmelo Vu MD on ?? 04/08/2024 11:44:52 ? ADDENDUM: ?? Receipt of this report by the clinical staff was confirmed with Debra ?? Joel residential care facility manager on Apr 08, 2024 14:45:00 EST. [...] DD/ 1144 ? TD/TT: 04/08/24 1144 ? Underwriting Specialist: ? Procedure Note Sarah Todd - 04/08/2024 [facility] [address] [facility] [address] CT Scan Report Signed with Addenda Patient: Vilma MuñizonyMR#: [id number] : 3Acct:[id number] Age/Sex: 74 / MADM Date: 04/05/24 Loc: HO.CT Attending Dr: Rosemary Shah MD Ordering Physician: Rosemary Shah MD Date of Service: 04/05/24 Procedure(s): CT chest w IV con Accession Number(s): [id number] cc: Rosemary Shah MD; Madonna Yousif MD Report Number: [id number]: Total DLP = 140.00 mGy-cm ADDENDUM This document has been electronically signed by: Carmelo Vu MD on 04/08/2024 11:44:52 ADDENDUM: Receipt of this report by the clinical staff was confirmed with Debra Maldonado, residential care facility manager on Apr 08, 2024 14:45:00 EST. [...] 04/08/24 1145 DD/ 1144 TD/TT: 04/08/24 1144 Underwriting Specialist: [facility] External Provider IMG CT PROCEDURES Edited Result - Final * CT Abdomen Pelvis w/ Contrast (04/08/2024 11:36 AM EST) Anatomical Region Laterality Modality Body, Pelvis, Abdomen Computed T omography 04/08/2024 11:3 6 AM EST Narrative 04/08/2024 11:38 AM EST ? [facility] ?[address] ?[place] [address] ? CT Scan Report ? Signed with Addenda ? Patient: Timothy Muñiz ?MR#: [id number] ?? [id number] ? : 1950 ?Acct:[id number] ? Age/Sex: 74 / M ?ADM Date: 04/05/24 ? Loc: HO.CT ? Attending Dr: Rosemary Shha MD ? Ordering Physician: Rosemary Shah MD ?? Date of Service: 04/05/24 ?? Procedure(s): CT abdomen pelvis w IV con ?? Accession Number(s): [id number] ? cc: Rosemary Shah MD; Madonna Yousif MD ? Report Number: ?? [id number]: Total DLP = ??317.00 mGy-cm ?ADDENDUM ?? This document has been electronically signed by: Carmelo Vu MD on ?? 04/08/2024 11:36:08 ? ADDENDUM: ?? Receipt of this report by the clinical staff was confirmed with Debra ?? Joel residential care facility manager on Apr 08, 2024 14:44:00 EST. [...] Comparison: CT/OT - ABD PELVIS WO CONT [id number] - 06/19/11 20:53 EDT ? Findings: ?? [...] DD/ 1136 ? TD/TT: 04/08/24 1136 ? Underwriting Specialist: ? Procedure Note Sarah Todd - 04/08/[address] [address] [address] Scan Report Signed with Benito Patient: Vilma MuñizonyMR#: [id number] : 1950cct:[id number] Age/Sex: 74 / MADM Date: 04/05/24 Loc: HO.CT Attending Dr: Rosemary Shah MD Ordering Physician: Rosemary Shah MD Date of Service: 04/05/24 Procedure(s): CT abdomen pelvis w IV con Accession Number(s): [id number] cc: Rosemary Shah MD; Madonna Yousif MD Report Number: [id number]: Total DLP = 317.00 mGy-cm ADDENDUM This document has been electronically signed by: Carmelo Vu MD on 04/08/2024 11:36:08 ADDENDUM: Receipt of this report by the clinical staff was confirmed with Debra Maldonado, residential care facility manager on Apr 08, 2024 14:44:00 EST. [...] Comparison: CT/OT - ABD PELVIS WO CONT [id number] - 06/19/11 20:53 EDT Findings: No consolidation [...] 04/08/24 1137 DD/ 1136 TD/TT: 04/08/24 1136 Underwriting Specialist: [facility] External Provider IMG CT PROCEDURES Edited Result - Final documented in this encounter Visit Diagnoses Not on filedocumented in this encounter Additional Health Concerns Assessment Noted Time PHQ-9 Depression Total Score: 7 10/28/19 24 11:45 AM EDT documented as of this encounter Care Teams Top Cutter Relationship Specialty Start Date End Date Madonna Yousif MD [address] [place] [address] PCP - General Family Medicine 07/25/21 documented as of this encounter
--- OUTSIDE RECORDS SUMMARY | 2024-04-25 13:26 | XMS_ITS | Encounter Summary ---
Author Organization [employer] Address [address] 7[address] [place] [address] Care Team Providers Care Beater And Pulper Feeder Name Role Phone Madonna Yousif MD Primary Care Provider [phone] Reason for Visit * Reason Onset Date Comments Medication Question 10/29/2023 Encounter Details Date Type Department Care Team ([facility] st Contact Info) Description 10/29/2023 Telephone [facility] MEDICINE [address] [place] [address] Madonna Yousif MD [address] [place] [address] Medication Question Social History Tobacco Use Types [...] 1:38 PM EDT Tc from [place] from [facility] calling in regards to the message below [...] documented as of this encounter Care Teams Beater And Pulper Feeder Relationship Specialty Start Date End Date Madonna Yousif MD [address] [place] [address] PCP - General Family Medicine 07/25/21 documented as of this encounter
--- OUTSIDE RECORDS SUMMARY | 2024-04-25 13:26 | XMS_ITS | Encounter Summary ---
Author Organization [employer] Address [address] [facility] [address] [place] [address] Care Team Providers Care Strategic Manager Name Role Phone Madonna Yousif MD Primary Care Provider [phone] Reason for Visit * Reason Onset Date Comments Hospital Follow-up 09/18/2023 Encounter Details Date Type Department Care Team ([facility] st Contact Info) Description 09/18/2023 Telephone [facility] MEDICINE [address] [place] [address] Madonna Yousif MD [address] [place] [address] Hospital Follow-up Social History Tobacco Use Types [...] a call back. Please return call to [phone] * Telephone Encounter - Wing Uday RN - 09/18/2023 2:22 PM EDT Tc to [facility] to scheduled pt for urgent HDF due to medications that will run out over the weekend. Unable to reach [facility]. Left message for her to call back. * Telephone Encounter - Krzysztof Lepe - 09/18/2023 1:56 PM EDT Tc from [place] from [facility] [employer] request for a appt as soon as possible states patient only haves enough Metformin 500mg 2 times a day and other medications that will last for the weekend * Telephone Encounter - Rj Vasquez - 09/18/2023 10:32 AM EDT Tc from [facility] [employer] requesting a HDF appt. Hospital: [facility] Date of admission: 08/17 Transferred to Rehab: 08/28 Rehabilitation Facility: [facility] Discharge date: 09/16 Diagnosed: Enumerable sclerotic bone lesion, esophageal hernia and newly diagnosed diabetic Pt was [facility] [place] and due to diagnoses listed above was transferred to [facility] for further treatment. documented in this encounter Plan of Treatment Not on file documented as of this encounter Visit Diagnoses Not on filedocumented in this encounter Additional Health Concerns Assessment Noted Time PHQ-9 Depression Total Score: 6 07/15/19 23 2:57 PM EDT documented as of this encounter Care Teams Strategic Manager Relationship Specialty Start Date End Date Madonna Yousif MD [address] [place] [address] PCP - General Family Medicine 07/25/21 documented as of this encounter
--- OUTSIDE RECORDS SUMMARY | 2024-04-25 13:26 | XMS_ITS | Encounter Summary ---
Author Organization [employer] Address [address] 7t [place] [address] Care Team Providers Care Recreational Resort Manager Name Role Phone Madonna Yousif MD Primary Care Provider [phone] Encounter Details Date Type Department Care Team (Late st Contact Info) Description 05/23/2022 Abstract [facility] [address] [place] [address] Maged Baxter DMD [address] [place] [address] Social History Tobacco Use Types Packs/Day Years [...] documented as of this encounter Care Teams Recreational Resort Manager Relationship Specialty Start Date End Date Madonna Yousif MD [address] [place] [address] PCP - General Family Medicine 07/25/21 documented as of this encounter
--- OUTSIDE RECORDS SUMMARY | 2024-04-25 13:26 | XMS_ITS | Encounter Summary ---
Author Organization [employer] Address [address] 7[address] [place] [address] Care Team Providers Care Stonecutter Hand Name Role Phone Madonna Yousif MD Primary Care Provider [phone] Reason for Visit * Reason Onset Date Comments Med Refill 09/02/2022 Encounter Details Date Type Department Care Team ([facility] st Contact Info) Description 09/02/2022 Telephone [facility] MEDICINE [address] [place] [address] Madonna Yousif MD [address] [place] [address] Med Refill Social History Tobacco Use Types [...] - 09/02/2022 11:54 AM EDT Tc from [facility] requesting a refill for atorvastatin (Lipitor) 20 MG tablet documented in this encounter Plan of Treatment Not on file documented as of this encounter Visit Diagnoses Not on filedocumented in this encounter Additional Health Concerns Assessment Noted Time PHQ-9 Depression Total Score: 6 07/15/19 23 2:57 PM EDT documented as of this encounter Care Teams Stonecutter Hand Relationship Specialty Start Date End Date Madonna Yousif MD [address] [place] [address] PCP - General Family Medicine 07/25/21 documented as of this encounter
--- OUTSIDE RECORDS SUMMARY | 2024-04-25 13:26 | XMS_ITS | Encounter Summary ---
Author Organization [employer] Address [address] [facility] 7t [place] [address] Care Team Providers Care Linoleum Layer Apprentice Name Role Phone Madonna Yousif MD Primary Care Provider [phone] Reason for Visit * Reason Comments Med Refill Encounter Details Date Type Department Care Team ([facility] st Contact Info) Description 07/28/2022 Refill [facility] MEDICINE [address] [place], [place] [phone] Allison Sanchez MD [address] [place] [address] Social History Tobacco Use Types Packs/Day Years [...] documented as of this encounter Care Teams Linoleum Layer Apprentice Relationship Specialty Start Date End Date Madonna Yousif MD [address] [place] [address] PCP - General Family Medicine 07/25/21 documented as of this encounter
--- OUTSIDE RECORDS SUMMARY | 2024-04-25 13:26 | XMS_ITS | Encounter Summary ---
Author Organization [employer] Address [address] [facility] [address] [facility] 7t [place] [address] Care Team Providers Care B2B Sales Manager Name Role Phone Madonna Yousif MD Primary Care Provider [phone] Reason for Visit * Reason Onset Date Comments Medication Question 02/02/2024 Encounter Details Date Type Department Care Team ([facility] st Contact Info) Description 02/02/2024 Telephone [facility] MEDICINE [address] [place] [address] Madonna Yousif MD [address] [place] [address] Medication Question Social History Tobacco Use Types [...] . If any question contact [facility] at [phone] documented in this encounter Plan of Treatment Not on file documented as of this encounter Visit Diagnoses Not on filedocumented in this encounter Additional Health Concerns Assessment Noted Time PHQ-9 Depression Total Score: 7 10/28/19 24 11:45 AM EDT documented as of this encounter Care Teams B2B Sales Manager Relationship Specialty Start Date End Date Madonna Yousif MD [address] [place] [address] PCP - General Family Medicine 07/25/21 documented as of this encounter
--- OUTSIDE RECORDS SUMMARY | 2024-04-25 13:26 | XMS_ITS | Encounter Summary ---
Author Organization [employer] Address [address] 7[address] [place] [address] Care Team Providers Care Oil Sales And Service Rep Name Role Phone Madonna Yousif MD Primary Care Provider Reason for Visit * Reason Comments Med Change Request Encounter Details Date Type Department Care Team ([facility] Contact Info) Description 11/02/2023 Refill [facility] [address] [place] [address] Madonna Yousif MD [address] [place] [address] Type 2 diabetes mellitus without complication, without long-term current use of insulin ([facility]) Social History Tobacco Use Types Packs/Day Years [...] complication, without long-term current use of insulin ([facility]) documented in this encounter Additional Health Concerns Assessment Noted Time PHQ-9 Depression Total Score: 7 10/28/19 24 11:45 AM EDT documented as of this encounter Care Teams Oil Sales And Service Rep Relationship Specialty Start Date End Date Madonna Yousif MD [address] [place] [address] PCP - General Family Medicine 07/25/21 documented as of this encounter
--- OUTSIDE RECORDS SUMMARY | 2024-04-25 13:26 | XMS_ITS | Clinical Summary ---
Author Organization [employer] Address [address] [facility] 7t [place] [address] Care Team Providers Care Diesel Roller Operator Name Role Phone Madonna Yousif MD Primary Care Provider [phone] Allergies Active Allergy Reactions Criticality Noted Date [...] complication, without long-term current use of insulin ([facility]) Use to test blood sugar 2 times daily 100 each 11 4 Active Blood Glucose Monitoring Suppl (FreeStyle [place] Lite) w/Device kitIndications:Typ e 2 diabetes mellitus without complication, without long-term current use of insulin ([facility]) Use to test blood sugar 2 times daily 1 kit 4 Active Bkjtkyi-Phhzeew-Eq thyl Fritz (Salonpas) 3.1-6-10 % patchIndications:C losed [...] 4 Active Blood Glucose Monitoring Suppl (FreeStyle [place] Lite) w/Device kitIndications:Typ e 2 diabetes mellitus without complication, without long-term current use of insulin ([facility]) Use to test blood sugar 2 times daily 1 kit 4 Active ferrous sulfate 325 (65 Fe) MG tablet Take 1 tablet (325 mg) by mouth 3 (three) times a week. Thursday, Thursday and Thursday 30 tablet 2 4 Active FreeStyle lancetsIndications :Type 2 diabetes mellitus without complication, without long-term current use of insulin ([facility]) 1 each by Other route 3 times [...] complication, without long-term current use of insulin ([facility]) Use to test blood sugar 1 time [...] recommended reduction of 20-30% of maintenance calories; director of event marketing referral offered. Recommended to decrease soda and [...] Department Care Team Description 04/05/2024 Orders Only [facility] External Provider, [facility] 03/25/2024 Orders Only GENERIC EXTERNAL DATA DEPARTMENT Provider, Generic External Data 03/14/2024 Orders Only GENERIC EXTERNAL DATA DEPARTMENT Provider, Generic External Data 02/26/2024 Orders Only GENERIC EXTERNAL DATA DEPARTMENT Provider, Generic External Data 02/19/2024 Orders Only GENERIC EXTERNAL DATA DEPARTMENT Provider, Generic External Data 02/05/2024 Orders Only GENERIC EXTERNAL DATA DEPARTMENT Provider, Generic External Data 02/02/2024 Telephone [facility] MEDICINE [address] [place] [address] Madonna Yousif MD Medication Question 01/26/2024 Telephone [facility] MEDICINE [address] [place] [address] Madonna Yousif MD FYI from Last 3 Months Immunizations Name Administration [...] 07/12/2024 07/13/2023 Depression Screening 10/27/2024 10/28/2023, 10/28/19 24 Lipid Panel 11/15/2024 11/16/2023, 03/23, 11/22/2020, Additional [...] 11:41 AM EST HEPATIC FUNCTION PANEL Routine 4 11:13 AM EST COMPREHENSIVE METABOLIC PANEL Routine 02/19/2024 11:13 AM EST CBC WITH AUTO DIFFERENTIAL Routine 02/19/2024 11:13 AM EST HEPATIC FUNCTION PANEL Routine 11:32 AM EST COMPREHENSIVE METABOLIC PANEL Routine 02/05/2024 11:32 AM EST CBC WITH AUTO DIFFERENTIAL Routine 02/05/2024 11:32 AM EST LIPID PANEL, STANDARD Routine 11/16/2023 11:29 AM [...] EST Narrative 04/08/2024 11:45 AM EST ? [facility] ?[address] ?[place] [address] ? CT Scan Report ? Signed with Addenda ? Patient: Muñiz,Timothy ?MR#: [id number] ?? 559 ? : 1950 ?Acct:[id number] ? Age/Sex: 74 / M ?ADM Date: 04/05/24 ? Loc: HO.CT ? Attending Dr: Rosemary Shah MD ? Ordering Physician: Rosemary Shah MD ?? Date of Service: 04/05/24 ?? Procedure(s): CT chest w IV con ?? Accession Number(s): [id number] ? cc: Rosemary Shah MD; Madonna Yousif MD ? Report Number: ?? [id number]: Total DLP = ??140.00 mGy-cm ?ADDENDUM ?? This document has been electronically signed by: Carmelo Vu MD on ?? 04/08/2024 11:44:52 ? ADDENDUM: ?? Receipt of this report by the clinical staff was confirmed with Debra ?? Joel forest [employer] field coordinator on Apr 08, 2024 14:45:00 EST. ? [...] DD/ 1144 ? TD/TT: 04/08/24 1144 ? Banking Services Officer: ? Procedure Note Perez, Sarah - 04/08/[address] [place] [address] [address] Scan Report Signed with Benito Patient: Ba MuñizR#: [id number] : 1950cct:[id number] Age/Sex: 74 / MADM Date: 04/05/24 Loc: HO.CT Attending Dr: Rosemary Shah MD Ordering Physician: Rosemary Shah MD Date of Service: 04/05/24 Procedure(s): CT chest w IV con Accession Number(s): [id number] cc: Rosemary Shah MD; Madonna Yousif MD Report Number: [id number]: Total DLP = 140.00 mGy-cm ADDENDUM This document has been electronically signed by: Carmelo Vu MD on 04/08/2024 11:44:52 ADDENDUM: Receipt of this report by the clinical staff was confirmed with Debra Maldonado, forest practices field coordinator on Apr 08, 2024 14:45:00 EST. This [...] Vu MD in OV> 04/08/24 1145 DD/ 114 TD/TT: 04/08/24 114 Banking Services Officer: [facility] External Provider IMG CT PROCEDURES Edited Result - Final * CT Abdomen Pelvis w/ Contrast (04/08/2024 11:36 AM EST) Anatomical Region Laterality Modality Body, Pelvis, Abdomen Computed T omography 04/08/2024 11:3 6 AM EST Narrative 04/08/2024 11:38 AM EST ? [facility] ?[address] ?[place], [place] [address] ? CT Scan Report ? Signed with Addenda ? Patient: Timothy Muñiz ?MR#: [id number] ?? 559 ? : 1950 ?Acct:[id number] ? Age/Sex: 74 / M ?ADM Date: 04/05/24 ? Loc: HO.CT ? Attending Dr: Rosemary Shah MD ? Ordering Physician: Rosemary Shah MD ?? Date of Service: 04/05/24 ?? Procedure(s): CT abdomen pelvis w IV con ?? Accession Number(s): [id number] ? cc: Rosemary Shah MD; Madonna Yousif MD ? Report Number: ?? [id number]: Total DLP = ??317.00 mGy-cm ?ADDENDUM ?? This document has been electronically signed by: Carmelo Vu MD on ?? 04/08/2024 11:36:08 ? ADDENDUM: ?? Receipt of this report by the clinical staff was confirmed with Debra ?? Joel [employer] field coordinator on Apr 08, 2024 14:44:00 EST. ? [...] Comparison: CT/OT - ABD PELVIS WO CONT [id number] - 3/20/03 20:53 EDT ? Findings: ?? No consolidation [...] DD/ 1136 ? TD/TT: 04/08/24 1136 ? Banking Services Officer: ? Procedure Note Perez, Image - 04/08/[address] [place] [address] [address] Scan Report Signed with Benito Patient: Ba MuñizR#: [id number] : 3Acct:[id number] Age/Sex: 74 / MADM Date: 04/05/24 Loc: HO.CT Attending Dr: Rosemary Shah MD Ordering Physician: Rosemary Shah MD Date of Service: 04/05/24 Procedure(s): CT abdomen pelvis w IV con Accession Number(s): [id number] cc: Rosemary Shah MD; Madonna Yousif MD Report Number: [id number]: Total DLP = 317.00 mGy-cm ADDENDUM This document has been electronically signed by: Carmelo Vu MD on 04/08/2024 11:36:08 ADDENDUM: Receipt of this report by the clinical staff was confirmed with Debra Spitz, forest practices field coordinator on Apr 08, 2024 14:44:00 EST. This [...] Comparison: CT/OT - ABD PELVIS [place] CONT [id number] - 06/19/11 20:53 EDT Findings: No consolidation [...] Vu MD in OV> 04/08/24 1137 DD/ 35 TD/TT: 04/08/241135 Banking Services Officer: [facility] External Provider IMG CT PROCEDURES Edited Result - Final * (ABNORMAL) CBC auto differential (03/25/2024 11:47 AM EST) Only the most recent of5 resultswithin the time period is included. White Blood Count 4.3(L) 4.8 - 10.8 X10*3/uL [facility] Red Blood Count 4.18(L) 4.60 - 5.80 X10*6/uL [facility] Hemoglobin 11.2(L) 14.0 - 18.0 g/dl [facility] Hematocrit 35.4(L) 42.0 - 52.0 % [facility] Mean Corpuscular Volume 84.7 80.0 - 98.0 fL [facility] Mean Corpuscular Hemoglobin 26.8(L) 27.0 - 33.0 pg [facility] Mean Corpuscular HGB Conc 31.6 31.0 - 36.0 g/dl [facility] Red Cell Distribution Width 17.1(H) 11.0 - 16.0 % [facility] Platelet Count 128(L) 160 - 400 X10*3/uL [facility] Mean Platelet Volume 10.2 9.4 - 12.4 fL [facility] Neutrophils Percent Auto 73.9(H) 45 - 73 % [facility] Imm Gran Pct Auto 0.5(H) 0.0 - 0.4 % [facility] Lymphocytes Percent Auto 8.9(L) 20 - 40 % [facility] Monocytes Percent Auto 15.6(H) 2 - 11 % [facility] Eosinophils Percent Auto 0.9 0 - 4 % [facility] Basophils Percent Auto 0.2 0 - 2 % [facility] NRBC Pct Auto 0.0 0.0 - 0.2 /100WBC [facility] Neutrophils Absolute Auto 3.2 2.0 - 8.3 x10*3/uL [facility] Imm Gran Abs Auto 0.02 0.00 - 0.03 X10*3/uL [facility] Lymphocytes Absolute Auto 0.4(L) 1.2 - 4.9 X10*3/uL [facility] Monocytes Absolute Auto 0.7 0.1 - 1.2 X10*3/uL [facility] Eosinophils Absolute Auto 0.0 0.0 - 0.4 X10*3/uL [facility] Basophils Absolute Auto 0.0 0.0 - 0.2 X10*3/uL [facility] NRBC Abs Auto 0.000 0.0 - 0.012 X10*3/uL [facility] 03/25/2024 11:4 7 AM EST 03/25/2024 1:09 PM EST Generic External Data Provider LAB BLOOD ORDERAB LES Final Result Performing Organization Address [facility] Co de Phone Number [facility] [address] [place] [phone] * Hepatic Function Panel (03/25/2024 11:42 AM EST) Only the most recent of5 resultswithin the time period is included. Bilirubin, Direct 0.2 0.0 - 0.5 mg/dL [facility] 03/25/2024 11:4 2 AM EST 03/25/2024 1:09 PM EST Generic External Data Provider LAB BLOOD ORDERAB LES Final Result Performing Organization Address [facility] de Phone Number [facility] [address] [place] [phone] * (ABNORMAL) Comprehensive Metabolic Panel (03/25/2024 11:42 AM EST) Only the most recent of5 resultswithin the time period is included. Sodium 140 135 - 145 mmol/L [facility] Potassium 3.9 3.3 - 5.1 mmol/L [facility] Chloride 108 96 - 108 mmol/L [facility] Carbon Dioxide 25 22 - 29 mmol/L [facility] Anion Gap 11(L) 12 - 20 [facility] Urea Nitrogen (BUN) 10 9 - 16 mg/dL [facility] Creatinine, Serum 0.65 0.5 - 1.4 mg/dL [facility] Estimated Glomerular Filt Rate >60 [facility] Comment:Chronic Kidney Disea se: Estimated GFR < 60 mL/min/1.53o6Qlkwpe Kidney Disease: Estimated GFR < 15 mL/min/1.73m2 Glucose 139(H) 60 - 115 mg/dL [facility] Calcium 8.3(L) 8.4 - 10.2 mg/dL [facility] Bilirubin, Total 0.4 0.0 - 1.0 mg/dL [facility] Aspartate Amino Transferase 28 5 - 37 U/L [facility] Alanine Aminotransferase 20 0 - 40 U/L [facility] Total Protein 5.7(L) 6.5 - 8.0 g/dL [facility] Albumin Level 3.1(L) 3.5 - 5.0 g/dL [facility] Alkaline Phosphatase 90 39 - 117 U/L [facility] 03/25/2024 11:4 2 AM EST 03/25/2024 1:09 PM EST us Generic External Data Provider LAB BLOOD ORDERAB LES Final Result Performing Organization Address City/[facility]/ZIP Co de Phone Number [facility] [address] [place] [phone] * TSH (03/14/2024 11:50 AM EST) Thyroid Stimulating Hormone 1.89 0.32 - 4.0 uIU/mL [facility] Comment:TSH 3rd Generation ( [facility]) 03/14/2024 11:5 0 AM EST 03/14/2024 1:31 PM EST us Generic External Data Provider LAB BLOOD ORDERAB LES Final Result Performing Organization Address City/[facility]/ZIP Co de Phone Number [facility] [address] [place] [address] [phone] * (ABNORMAL) Lipid Panel, Standard (11/16/2023 11:29 AM EDT) Triglycerides 114 <150 mg/dL [facility] Comment:Desirable Triglyceri de: less than 150 mg/dLBorderline High Triglyceride 150-199 mg/dLHigh Triglyceride: 200-499 mg/dLVery High Triglyceride: greater than or equal to 5OO mg/dL Cholesterol 126 <200 mg/dL [facility] Comment:Desirable Cholestero l: less than 200 mg/dLBorderline High Cholesterol: 200-239 mg/dLHigh Cholesterol: greater than 239 mg/dL LDL Cholesterol Calculated 71 <100 mg/dL [facility] Comment:Desirable LDL: less than 100 mg/dLNear Optimal/Above Optimal LDL: 110- 129 mg/dLBorderline High LDL: 130-159 mg/dLHigh LDL: 160-189 mg/dLVery High LDL: greater than or equal to 190 mg/dL HDL Cholesterol 33(L) >40 mg/dL [facility] Comment:Desirable HDL: great er than 40 mg/dL Note: This HDL assay may give artificially low results in patients with liver disease. Blood Venous blood specimen / Unknown 11/16/2023 11:29 AM EDT 11/16/2023 2:33 PM EDT us Madonna Yuosif MD LAB BLOOD ORDERABLES Final Re sult [facility] [address] [place] [address] [phone] * (ABNORMAL) POCT HGB A1C (10/28/2023 11:50 AM EDT) Hemoglobin A1C 6.1(A) 4.0 - 6.0 % QC Media Lot # [id number] Lot# Expiration Date Blood 10/28/2023 11:5 0 AM EDT us Xu Moody MD POINT OF CARE TEST ENTER/EDIT ORDERABLES Final Result * (ABNORMAL) ALBUMIN, RANDOM URINE W/CREATININE (2021 1:15 PM EST) Microalbumin Urine <0.2 See Note: mg/dL [facility] Comment: Reference Range: ?? Reference Range Not established Microalb/Creat Ratio NOTE <30 mcg/mg creat [facility] Comment: NOTE: The urine albumin [...] Creatinine, Urine 15(L) 20 - 320 mg/dL [facility] 2021 1:15 PM EST Allison Perez MD LAB URINE ORDERABLES Final Result [facility] [address] * Hepatitis C Antibody with Reflex to HCV, RNA, Quantitative, Real-Time PCR (2021) Blood Venous blood specimen / Unknown 2021 Narrative Madonna Yousif MD - 07/14/2022 3:25 PM EDT Non reactive Historical Provider LAB BLOOD ORDERABLES Reyna l Result * Hm Colonoscopy (06/23/2011) Colonoscopy Normal Normal Historical Provider HEALTH MAINTENANCE Final Result from Last 3 Months or Most Recently Relevant to Health Maintenance Insurance MEDIC[place] [id number] [facility] STAND ADULT Care Teams Diesel Roller Operator Relationship Specialty Start Date End Date Madonna Yousif MD [address] [place] [address] PCP - General Family Medicine 07/25/21
--- OUTSIDE RECORDS SUMMARY | 2024-04-25 13:26 | XMS_ITS | Encounter Summary ---
Author Organization [employer] Address [address] [facility] [address] [place] [address] Care Team Providers Care Glass Vial Bending Conveyor Feeder Name Role Phone Madonna Yousif MD Primary Care Provider [phone] Reason for Visit * Reason Onset Date Comments Call Back Request 10/19/2023 Encounter Details Date Type Department Care Team ([facility] st Contact Info) Description 10/19/2023 Telephone [facility] [address] [place] [address] Madonna Yousif MD [address] [place] [address] Call Back Request Social History Tobacco Use [...] not known due to only being in [facility] notes. Agreed that pt needed appt with a provider. Gave pt appt for 10/27 at 11:[address] Rivero. * Telephone Encounter - Rj Vasquez - 10/19/2023 4:07 PM EDT Tc from [facility] half-way calling in regards to pt's discharge from rehab. [facility] statedpt was discharged with abdominal hernia and this wasn't addressed during [facility] due to not having knowledge of thi until recently. [facility] is requesting a call back to further discuss. Please contact [facility] at [phone]. documented in this encounter Plan of Treatment Not on file documented as of this encounter Visit Diagnoses Not on filedocumented in this encounter Additional Health Concerns Assessment Noted Time PHQ-9 Depression Total Score: 6 07/15/19 23 2:57 PM EDT documented as of this encounter Care Teams Glass Vial Bending Conveyor Feeder Relationship Specialty Start Date End Date Madonna Yousif MD [address] [place] [id number] PCP - General Family Medicine 07/25/21 documented as of this encounter
--- OUTSIDE RECORDS SUMMARY | 2024-04-25 13:26 | XMS_ITS | Clinical Summary ---
Author Organization [facility] Address [address] [place] [address] Phone Care Team Providers Care Financial Services Sales Representative Name Role Phone Madonna Yousif MD Primary Care Provider [phone] Allergies Active Allergy Reactions Criticality Noted Date [...] & Plan: 73-year-old male lives at a correction with giant type IV paraesophageal hernia that [...] his symptoms. He was here with his senior research engineer who told me that he has an appointment with medical oncology at [facility] up and a PET scan shortly [...] 1:30 PM EST Consult Orthopedic Surgery - [address] [address] Didier Brown, DPM Dermatophytosis of nail (Primary Dx); Type 2 diabetes mellitus without complication, with long-term current use of insulin ([facility]) from Last 3 Months Immunizations [...] PM EDT Office Visit Orthopedic Surgery - [place] [address] [address] Didier Brown, DPM [address] [id number] Health Maintenance Due Date Last Done Comments [...] E * Hepatitis C Screening (2021) Pathologist [facility] Hepatitis C Screening abstracted Historical Provider MD MIRIAM JORGE E * Hemoglobin A1c (2021) Pathologist [facility] Hemoglobin A1C 0.0 % Comment:no interpretation, a bstracted Blood Venous blood specimen / Unknown Historical Provider LAB BLOOD ORDERAB LES * Lipid panel (2021) Pathologist [facility] LDL/HDL Ratio 0 Comment:no interpretation, a bstracted Triglycerides 0 mg/dL Comment:no interpretation, a bstracted Cholesterol 0 mg/dL Comment:no interpretation, a bstracted HDL 0 mg/dL Comment:no interpretation, a bstracted LDL Cholesterol 0 mg/dL Comment:no interpretation, a bstracted Blood Venous blood specimen / Unknown Historical Provider LAB BLOOD ORDERAB LES from Last 3 Months or Most Recently Relevant to Health Maintenance Care Teams Financial Services Sales Representative Relationship Specialty Start Date End Date Madonna Yousif MD [address] [place] [address] PCP - General 10/29/23
[2024-04-25] MEDS: Magnesium Sulfate/H2O 2 GM/50 ML PIGGYBACK IV (13:35)
--- NOTE | 2024-04-25 14:26 | PHA.MEDREC ---
Addendum entered by Regina Karimi [facility] 04/26/24 17:27: Patient told nurse Dulce that he uses the prednisolone eye drops in the LEFT eye only. Med rec and order were updated. Addendum entered by Ada Georges [facility] 04/25/24 14:51: reviewed by [facility]. Original Note: Pharmacy Consult ? Medication Reconciliation Pharmacy has completed the medication reconciliation. Utilized list from oncology and claims to confirm med list.
--- NOTE | 2024-04-25 15:08 | P.HPHOSP_ITS ---
History of Present Illness Date of Service: 04/25/24 Chief Complaint: Nausea, vomiting and abdominal pain 74-year-old gentleman with past medical history significant for gastric cancer with bone Mets, history of coronary artery disease, hypertension, schizoaffective disorder, mild intermittent asthma, tremors, currently receiving chemotherapy with FOLFOX and nivolumab, presented to Oncology for 8 cycle of treatment but complained of abdominal pain, nausea vomiting since yesterday associated with decreased episodes tied, dizziness, no fevers, no chills in oncology unit patient continued to have persistent nausea, epigastric burning treated with antiemetics and IV fluid but due to persistent symptoms was ref erred to emergency room where workup showed magnesium of 1.4, potassium 3.2 stable hematocrit platelet count of 114, WBC 6.6 low calcium 7.4 albumin 3.3, no imaging studies obtained but recent CT abdomen and pelvis April 08 showed prominent abnormal thickening and surrounding stranding involving gastric antrum and pylorus, reflecting pronounced gastritis versus region of malignancy, patient denies urinary symptoms of urgency, no frequency, no fevers, no new cough, denies hematemesis, no melena, patient treated in the emergency room with 2 g of magnesium, IV fluids and IV Reglan and now being admitted to [facility] due to persistent symptoms with inability to keep food down. Review of Systems Review of Systems: General + dizziness no fever chills. CVS no chest pain, no palpitation. Respiratory no cough no sob Gastrointestinal epigastric burning, nausea and vomiting, non bloody emesis no urgency, no frequency has chronic difficulty passing urine Skin no rash All other system reviewed and are negative. [facility] Medical History Tremor Mild intermittent asthma Coronary artery disease Schizoaffective disorder HTN (hypertension) Heme + stool Family History Unknown No problems noted. Mother Colon cancer Surgical History History of esophagogastroduodenoscopy (EGD) Hx of colonoscopy Social History Household Members: None Household Members Other:: Patient lives in a nursing home Housing: Apartment Housing Other:: nursing home Are you a primary nanny caregiver to a significant other at home: No Do you presently have visiting nurse or other home services: No Alcohol intake: never Patient Tobacco Use Status: Former Tobacco user Advance Directives: No Advance Directives Information Provided: Yes service: No Current occupational status: disabled Meds Allergies Allergy/AdvReac Type Severity Reaction Status Date / Time Penicillins [PENICILLINS] Allergy Unknown EYES GET Verified 04/25/24 11:56 RED latex Allergy Unknown Verified 02/20/24 16:36 Active Medications: Current Medications Albuterol Sulfate (Albuterol Sulfate 90 Mcg 8 Gm Inhaler) 2 puff INHALE Q6H PRN PRN Reason: Wheezing Atorvastatin Calcium (Atorvastatin Calcium 20 Mg Tablet) 20 mg PO DAILY [facility] Benztropine Mesylate (Benztropine Mesylate 1 Mg Tablet) 1 mg PO BID [facility] Finasteride (Finasteride 5 Mg Tablet) 5 mg PO DAILY [facility] Fluticasone Propionate (Fluticasone Propionate Nasal 16 Gm Warren) 2 spray NOSTRIL-B DAILY [facility] Fluticasone/Vilanterol (Fluticasone/Vilanterol 200/25 Blst.W.Dev) 1 puff INHALE RDAILY [facility] Gabapentin (Gabapentin 300 Mg Capsule) 300 mg PO TID PRN PRN Reason: nerve pain Potassium Chloride/Sodium Chloride (Kcl 40 Meq In 0.9 % Sodium Chl) 40 meq in 1,000 mls @ 100 mls/hr IVCONT .Q10H [facility] Loperamide HCl (Loperamide Hcl 2 Mg Capsule) 2 mg PO Q4H PRN PRN Reason: Diarrhea Non-Formulary Medication (Melatonin) 10 mg PO BEDTIME [facility] Olanzapine (Olanzapine 10 Mg Tablet) 20 mg PO BEDTIME [facility] Omeprazole (Omeprazole 20 Mg Capsule.Dr) 20 mg PO BID@0630,1630 [facility] Prednisolone Acetate (Prednisolone Acetate 1 % Oph Susp 5 Ml Drpbtl) 1 drop EYE-BOTH DAILY [facility] Tamsulosin HCl (Tamsulosin Hcl 0.4 Mg Capsule) 0.8 mg PO DAILY [facility] Vitamin D (Cholecalciferol (Vitamin D3) 25 Mcg Tablet) 50 mcg PO DAILY [facility] Home Medications ?Medication ?Instructions ?Recorded ?Confirmed ?Last Taken ?Type atorvastatin 20 mg tablet 20 mg PO DAILY 10/11/20 04/25/24 12/14/23 History olanzapine 20 mg tablet 20 mg PO BEDTIME 10/11/20 04/25/24 Unknown History albuterol sulfate 90 mcg/actuation 2 puff inhalation Q6H PRN Wheezing 12/20/20 04/25/24 Unknown History aerosol inhaler cetirizine 10 mg tablet 10 mg PO BEDTIME 12/20/20 04/25/24 Unknown History fluticasone propionate 50 2 spray intranasal DAILY 12/20/20 04/25/24 12/29/23 History mcg/actuation nasal spray,suspension gabapentin 300 mg capsule 300 mg PO TID PRN nerve pain 11/13/23 04/25/24 History acetaminophen 325 mg tablet 650 mg PO Q8H PRN pain 12/08/23 04/25/24 Unknown History camphor 3.1 %-methyl salicylate 10 3.1 patch topical BID 12/08/23 04/25/24 Unknown History %-menthol 6 % topical patch (Salonpas) carvedilol 12.5 mg tablet 12.5 mg PO BID 12/08/23 04/25/24 12/29/23 History cholecalciferol (vitamin D3) 50 50 mcg PO DAILY 12/08/23 04/25/24 12/29/23 History mcg (2,000 unit) capsule ferrous sulfate 325 mg (65 mg 325 mg PO MOWEFR 12/08/23 04/25/24 Unknown History iron) tablet finasteride 5 mg tablet 5 mg PO DAILY 12/08/23 04/25/24 Unknown History prednisolone acetate 1 % eye 1 drp ophthalmic (eye) DAILY 12/08/23 04/25/24 Unknown History drops,suspension tamsulosin 0.4 mg capsule 0.8 mg PO DAILY 12/08/23 04/25/24 Unknown History fluticasone furoate 200 1 ea inhalation DAILY 12/29/23 04/25/24 12/29/23 History mcg-vilanterol 25 mcg/dose inhalation powder (Breo Ellipta) benztropine 1 mg tablet 1 mg PO BID 04/25/24 04/25/24 Unknown History melatonin 10 mg capsule 10 mg PO BEDTIME 04/25/24 04/25/24 Unknown History omeprazole 20 mg capsule,delayed 20 mg PO BID@0630,1630 04/25/24 04/25/24 Unknown History release ondansetron 8 mg disintegrating 8 mg PO Q8H PRN Nausea And Vomiting 04/25/24 04/25/24 Unknown History tablet sennosides 8.6 mg tablet (Senokot) 8.6 mg PO BEDTIME PRN Constipation 04/25/24 04/25/24 Unknown History Physical Exam Vital Signs and Narrative: Vital Signs: Last Vital Signs Temp 98.0 F 04/25/24 11:54 Pulse 88 04/25/24 11:54 Resp 20 04/25/24 11:54 BP 98/57 L 04/25/24 11:54 Pulse Ox 95 04/25/24 11:54 O2 Del Method Room Air 04/25/24 11:54 BMI result Body Mass Index 29.5 Const: Other: General resting comfortably in no acute distress. Anicteric sclera Neck supple no JVD. CVS regular rate rhythm, Respiratory lungs clear to auscultation, no respiratory distress, no wheeze, no rhonchi. Gastrointestinal epigastric tenderness to palpation, bowel sounds audible, no guarding , no rigidity. Extremities no edema. Neuro mild tremors Skin no rash Appropriate affect Assessment and Plan (1) Gastric cancer: Status: Acute (2) Hypomagnesemia: Status: Acute (3) Nausea & vomiting: Status: Acute (4) Epigastric pain: Status: Acute Plan 74-year-old gentleman with past medical history significant for hypertension, diabetes, coronary artery disease, type 4 paraesophageal hernia, bipolar disorder, hyperlipidemia, BPH, tremors, gastric tumor with bone Mets currently receiving chemotherapy was due for 8 cycle of FOLFOX plus nivolumab but noted to have decreased appetite, malaise, nausea vomiting epigastric pain therefore referred to [facility] for further eval and treatment. Nausea, vomiting and epigastric pain Multifactorial likely due to chemotherapy secondary to underlying epigastric tumor and hiatal hernia IV fluids/IV ppi/antiemetics/analgesics Clear liquid diet Supportive care/hold dexamethasone Recent upper endoscopy 12/14 showed mildly tortuous esophagus without stricture, ring, esophagitis or Goldstein's, it showed gastritis and large ulcerated gastric antral mass Acute on chronic normocytic anemia Likely due to GI bleed Follow CBC, transfuse as needed GI consult as needed Acute Hypokalemia likely due to GI loss will replace and follow labs Acute hypo magnesemia/acute hypocalcemia likely due to decreased by mouth intake will replace and follow labs Mild intermittent asthma No acute exacerbation continue home inhalers Schizoaffective disorder Continue olanzapine BPH continue Flomax and finasteride Hypertension soft blood pressure will hold Coreg follow BP Hyperlipidemia continue statin DVT prophylaxis compression boots, due to low platelet count and prior history of heme-positive stools Full code In my clinical judgment patient requires 2 night inpatient hospitalization for management of intractable nausea vomiting abdominal pain decreased by mouth intake and electrolyte abnormality requiring IV hydration and expert consultation. Quality Stroke Does the patient have a stroke diagnosis?: No VTE Prior VTE?: No VTE Risk Level:: Medical - moderate - high VTE Device Contraindication: Treatment Not Indicated VTE Drug Contraindication: N/A - Med Ordered
--- NOTE | 2024-04-25 15:23 | PC.NURSE ---
pt arrived from oncology with anterior chest port on right accessed.
[2024-04-25] MEDS: KCl 40 mEq in 0.9 % Sodium Chl 40 MEQ/1,000 ML IV.SOLN 100 MEQ IVCONT (15:28)
[2024-04-25 15:32] VITALS: BP 96/58; PULSE 83; RESP 20; TEMP 36.4; O2SAT 95
[2024-04-25 17:58] VITALS: BP 107/60; PULSE 89; RESP 18; TEMP 36.6; O2SAT 92
[2024-04-25 18:09] VITALS: BMI 29.5
[2024-04-25] MEDS: Pantoprazole Sodium 40 MG/10 ML VIAL IVPUSH (18:15)
[2024-04-25] MEDS: Morphine Sulfate 4 MG/ML CARTRIDGE 3 MG IVPUSH ×2 (18:21→22:29)
[2024-04-25 19:33] VITALS: BP 109/67; PULSE 100; RESP 16; TEMP 36.5; O2SAT 93
[2024-04-25] MEDS: Melatonin 3 MG TABLET 9 MG PO (20:05)
[2024-04-25] MEDS: OLANZapine 10 MG TABLET 20 MG PO (20:05)
[2024-04-25] MEDS: Calcium Carbonate 750 MG TAB.CHEW PO (20:06)
[2024-04-25] MEDS: Benztropine Mesylate 1 MG TABLET PO (20:06)
[2024-04-25] MEDS: 0.9 % Sodium Chloride Flush 3 ML SYRINGE IVFLUSH (20:08)
[2024-04-25 23:21] LABS: Influenza A PCR NEGATIVE (Negative); Influenza B PCR NEGATIVE (Negative); Resp Syncy Virus RNA Qual PCR NEGATIVE (Negative); SARS COV2 PCR INHOUSE NEGATIVE (Negative)
[2024-04-26] MEDS: KCl 40 mEq in 0.9 % Sodium Chl 40 MEQ/1,000 ML IV.SOLN 100 MEQ IVCONT (01:52)
[2024-04-26 03:17] VITALS: BP 105/58; PULSE 90; RESP 18; TEMP 36.7; O2SAT 91
[2024-04-26 04:34] VITALS: O2SAT 97
[2024-04-26] MEDS: Pantoprazole Sodium 40 MG/10 ML VIAL IVPUSH ×2 (05:47→16:50)
[2024-04-26 07:00] LABS: Hematocrit 27.7 % (42.0-52.0); Hemoglobin 8.7 g/dl (14.0-18.0); Mean Corpuscular HGB Conc 31.4 g/dl (31.0-36.0); Mean Corpuscular Hemoglobin 27.5 pg (27.0-33.0); Mean Corpuscular Volume 87.7 fL (80.0-98.0); Mean Platelet Volume 10.2 fL (9.4-12.4); Platelet Count 108 X10*3/uL (160-400); Red Blood Count 3.16 X10*6/uL (4.60-5.80); Red Cell Distribution Width 18.1 % (11.0-16.0); White Blood Count 3.1 X10*3/uL (4.8-10.8)
[2024-04-26 07:16] LABS: Anion Gap 11 (12-20); Blood Urea Nitrogen 8 mg/dL (9-16); Carbon Dioxide 21 mmol/L (22-29); Chloride 114 mmol/L (96-108); Creatinine Clr Calc Pharmacy 127.9; Estimated Glomerular Filt Rate > 60; Glucose Random 86 mg/dL (60-115); Magnesium 1.6 mg/dL (1.6-2.6); Potassium 3.3 mmol/L (3.3-5.1); Sodium 143 mmol/L (135-145)
[2024-04-26 07:59] VITALS: BP 102/58; PULSE 90; RESP 16; TEMP 36.6; O2SAT 92
[2024-04-26] MEDS: Cholecalciferol (Vitamin D3) 25 MCG TABLET 50 MCG PO (08:04)
[2024-04-26] MEDS: Benztropine Mesylate 1 MG TABLET PO ×2 (08:04→19:32)
[2024-04-26] MEDS: Atorvastatin Calcium 20 MG TABLET PO (08:04)
[2024-04-26] MEDS: Finasteride 5 MG TABLET PO (08:05)
[2024-04-26] MEDS: Tamsulosin HCL 0.4 MG CAPSULE 0.8 MG PO (08:05)
--- NOTE | 2024-04-26 08:26 | P.CNGI_ITS ---
History of Present Illness Data of Consult Service Date: 04/26/24 Primary Care Provider: Unknown Physician HPI Reason for consult: metastatic gastric cancer 74-year-old gentleman with past medical history significant for gastric cancer with bone mets, history of coronary artery disease, hypertension, schizoaffective disorder, mild intermittent asthma, tremors, who I am seeing for assessment for pain Patient has been receiving FOLFOX and nivolumab for gastric cancer but prior to his 8th cycle he had been c.o nausea and vomiting, non bloody with tiredness and fatigue. He indicates he has been having issues with regurgitation, and difficulty swallowing solids, but not liquids. He has noted retrosternal burning pain, 10/10 without radiaiton worse with bending and coughing. From rpior imaging he is noted to have a large paraesophgeal hernia. He is on BID omeprazole. Denies melena, rectal bleeding, coffee ground emesis. Labs with low lytes and mild pancytopenia. Review of Systems 2 Review of Systems: Constitutional : + Weight loss, No Fever, No Chills ENT/Mouth : No sore throat, No Rhinorrhea Eyes: No Swelling, No Redness Cardiovascular : + Chest Pain, No SOB, No Edema Respiratory : No Cough, No Sputum, No Wheezing Gastrointestinal : see HPI Genitourinary : NO Dysuria, No Urinary Frequency, No Hematuria, No Urgency Musculoskeletal : no joint pain, No Myalgias, No Joint Swelling Skin : No Skin Lesions, No rash Neuro : No Weakness, No Numbness, No Dizziness, No Headache Psych : No Anxiety/Panic, No Depression Heme/Lymph: No Bruising, No Lymphadenopathy Endocrine : No Polyuria, No Polydipsia All other systems reviewed and are negative. [facility] Past Medical History Medical History Tremor Mild intermittent asthma Coronary artery disease Schizoaffective disorder HTN (hypertension) Heme + stool Family History Family History Unknown No problems noted. Mother Colon cancer Surgical History Surgical History History of esophagogastroduodenoscopy (EGD) Hx of colonoscopy Social History Social History Household Members: Other Household Members Other:: [facility]ci Housing: House Housing Other:: [facility] Are you a primary healthcare applications analyst to a significant other at home: No Do you presently have visiting nurse or other home services: No Alcohol intake: never Patient Tobacco Use Status: Former Tobacco user service: No Current occupational status: disabled Meds Allergies Allergy/AdvReac Type Severity Reaction Status Date / Time Penicillins [PENICILLINS] Allergy Unknown EYES GET Verified 04/25/24 11:56 RED latex Allergy Unknown Verified 02/20/24 16:36 Active Medications: Current Medications Acetaminophen (Acetaminophen 325 Mg Tablet) 650 mg PO Q6H PRN PRN Reason: Pain, Mild 1-3,fever,headache Albuterol Sulfate (Albuterol Sulfate 90 Mcg 8 Gm Inhaler) 2 puff INHALE Q6H PRN PRN Reason: Wheezing Atorvastatin Calcium (Atorvastatin Calcium 20 Mg Tablet) 20 mg PO DAILY [facility] Last Admin: 04/26/24 08:04 Dose: 20 mg Benztropine Mesylate (Benztropine Mesylate 1 Mg Tablet) 1 mg PO BID [facility] Last Admin: 04/26/24 08:04 Dose: 1 mg Calcium Carbonate (Calcium Carbonate 750 Mg Tab.Chew) 750 mg PO Q4H PRN PRN Reason: Heartburn Last Admin: 04/25/24 20:06 Dose: 750 mg Finasteride (Finasteride 5 Mg Tablet) 5 mg PO DAILY [facility] Last Admin: 04/26/24 08:05 Dose: 5 mg Fluticasone Propionate (Fluticasone Propionate Nasal 16 Gm [place]) 2 spray NOSTRIL-B DAILY [facility] Fluticasone/Vilanterol (Fluticasone/Vilanterol 200/25 Blst.W.Dev) 1 puff INHALE RDAILY [facility] Gabapentin (Gabapentin 300 Mg Capsule) 300 mg PO TID PRN PRN Reason: nerve pain Potassium Chloride/Sodium Chloride (Kcl 40 Meq In 0.9 % Sodium Chl) 40 meq in 1,000 mls @ 100 mls/hr IVCONT .Q10H [facility] Last Admin: 04/26/24 01:52 Dose: 100 mls/hr Loperamide HCl (Loperamide Hcl 2 Mg Capsule) 2 mg PO Q4H PRN PRN Reason: Diarrhea Magnesium Hydroxide (Milk Of Magnesia 30 Ml Oral.Susp) 30 ml PO DAILY PRN PRN Reason: Constipation Melatonin (Melatonin 3 Mg Tablet) 9 mg PO BEDTIME [facility] Last Admin: 04/25/24 20:05 Dose: 9 mg Morphine Sulfate (Morphine Sulfate 4 Mg/Ml Cartridge) 3 mg IVPUSH Q4H PRN; Protocol PRN Reason: Pain, Severe (Pain Scale 7-10) Last Admin: 04/25/24 22:29 Dose: 3 mg Olanzapine (Olanzapine 10 Mg Tablet) 20 mg PO BEDTIME [facility] Last Admin: 04/25/24 20:05 Dose: 20 mg Ondansetron HCl (Ondansetron Hcl 4 Mg/2 Ml Vial) 4 mg IVPUSH Q8H PRN PRN Reason: Nausea and Vomiting Pantoprazole Sodium (Pantoprazole Sodium 40 Mg/10 Ml Vial) 40 mg IVPUSH BID@0630,1630 [facility] Last Admin: 04/26/24 05:47 Dose: 40 mg Prednisolone Acetate (Prednisolone Acetate 1 % Oph Susp 5 Ml Drpbtl) 1 drop EYE-BOTH DAILY [facility] Sodium Chloride (0.9 % Sodium Chloride Flush 3 Ml Syringe) 3 ml IVFLUSH QSHIFT [facility] Last Admin: 04/26/24 08:01 Dose: Not Given Tamsulosin HCl (Tamsulosin Hcl 0.4 Mg Capsule) 0.8 mg PO DAILY [facility] Last Admin: 04/26/24 08:05 Dose: 0.8 mg Vitamin D (Cholecalciferol (Vitamin D3) 25 Mcg Tablet) 50 mcg PO DAILY [facility] Last Admin: 04/26/24 08:04 Dose: 50 mcg Home Medications ?Medication ?Instructions ?Recorded ?Confirmed ?Last Taken ?Type atorvastatin 20 mg tablet 20 mg PO DAILY 10/11/20 04/25/24 12/14/23 History olanzapine 20 mg tablet 20 mg PO BEDTIME 10/11/20 04/25/24 Unknown History albuterol sulfate 90 mcg/actuation 2 puff inhalation Q6H PRN Wheezing 12/20/20 04/25/24 Unknown History aerosol inhaler cetirizine 10 mg tablet 10 mg PO BEDTIME 12/20/20 04/25/24 Unknown History fluticasone propionate 50 2 spray intranasal DAILY 12/20/20 04/25/24 12/29/23 History mcg/actuation nasal spray,suspension gabapentin 300 mg capsule 300 mg PO TID PRN nerve pain 11/13/23 04/25/24 12/29/23 History acetaminophen 325 mg tablet 650 mg PO Q8H PRN pain 12/08/23 04/25/24 Unknown History camphor 3.1 %-methyl salicylate 10 3.1 patch topical BID 12/08/23 04/25/24 Unknown History %-menthol 6 % topical patch (Salonpas) carvedilol 12.5 mg tablet 12.5 mg PO BID 12/08/23 04/25/24 12/29/23 History cholecalciferol (vitamin D3) 50 50 mcg PO DAILY 12/08/23 04/25/24 12/29/23 History mcg (2,000 unit) capsule ferrous sulfate 325 mg (65 mg 325 mg PO MOWEFR 12/08/23 04/25/24 Unknown History iron) tablet finasteride 5 mg tablet 5 mg PO DAILY 12/08/23 04/25/24 Unknown History prednisolone acetate 1 % eye 1 drp ophthalmic (eye) DAILY 12/08/23 04/25/24 Unknown History drops,suspension tamsulosin 0.4 mg capsule 0.8 mg PO DAILY 12/08/23 04/25/24 Unknown History fluticasone furoate 200 1 ea inhalation DAILY 12/29/23 04/25/24 12/29/23 History mcg-vilanterol 25 mcg/dose inhalation powder (Breo Ellipta) benztropine 1 mg tablet 1 mg PO BID 04/25/24 04/25/24 Unknown History melatonin 10 mg capsule 10 mg PO BEDTIME 04/25/24 04/25/24 Unknown History omeprazole 20 mg capsule,delayed 20 mg PO BID@0630,1630 04/25/24 04/25/24 Unknown History release ondansetron 8 mg disintegrating 8 mg PO Q8H PRN Nausea And Vomiting 04/25/24 04/25/24 Unknown History tablet sennosides 8.6 mg tablet (Senokot) 8.6 mg PO BEDTIME PRN Constipation 04/25/24 04/25/24 Unknown History Physical Exam 2 Vital Signs: Vital Signs: Last Vital Signs Temp 97.9 F 04/26/24 07:59 Pulse 90 04/26/24 07:59 Resp 16 04/26/24 07:59 BP 102/58 L 04/26/24 07:59 Pulse Ox 92 04/26/24 07:59 O2 Del Method Nasal Cannula 04/26/24 07:59 O2 Flow Rate 2 04/26/24 07:59 BMI result Body Mass Index 29.5 EXAM: GENERAL: The patient is well developed and nontoxic. VITAL SIGNS:see workflow HEENT: Nonicteric sclerae, PERRLA, EOMI. Oropharynx clear. Moist mucous membranes. Conjunctivae appear well perfused. No thyroid mass. CHEST: Chest wall is nontender. HEART: Regular rate and rhythm without murmurs. LUNGS: Clear to auscultation bilaterally. ABDOMEN: Soft, positive bowel sounds, nontender, no organomegaly.no flank tenderness SKIN: No rash, no excessive bruising, petechiae, or purpura. NEUROLOGIC: Cranial nerves II-XII intact without motor/sensory deficit. pill rolling and parkinsonian facies Psych: normal affect Results Labs 04/26/24 05:45 04/26/24 05:45 Labs: Short CBC 04/26/24 Range/Units 05:45 WBC 3.1 L (4.8-10.8) X10*3/uL Hgb 8.7 L (14.0-18.0) g/dl Hct 27.7 L (42.0-52.0) % Plt Count 108 L (160-400) X10*3/uL BMP 04/26/24 05:45 Sodium 143 Potassium 3.3 Chloride 114 H Carbon Dioxide 21 L BUN 8 L Creatinine 0.51 Calcium 7[address] scan - chest: Attestation: I personally reviewed and interpreted this imaging study as follows: (large para esophageal hernia ) Assessment and Plan (1) Large hiatal hernia: Status: Acute Plan 1/ Chest pain with nausea and regurgitation, concenr would be incarceration or torsion of the henria, ddx: esophagitis, gastritis, progression of neoplasia 2/ Pancytopenia, assume 2/2 chemotherapy, could also be nutritional PLAN: 1. recommend re imaging CT chest, A/P 2/ high dose IV PPI 3/ if torsion or incarceration- surgery consult 4/ if above neg then will consider EGD 5/ check folate and B12 levels Procedures Date of Service Date of Service: 04/26/24
[2024-04-26] MEDS: Calcium Carbonate 750 MG TAB.CHEW PO ×2 (09:58→17:00)
[2024-04-26] MEDS: prednisoLONE Acetate 1 % Oph Susp 5 ML DRPBTL 1 DROP EYE-BOTH (11:09)
[2024-04-26] MEDS: Fluticasone Propionate Nasal 16 GM SPRAY 2 SPRAY NOSTRIL-B (11:09)
--- NOTE | 2024-04-26 11:20 | P.PNIM_ITS ---
Subjective Subjective Date of Service: 04/26/24 Interval History: Complaining of persistent epigastric burning, denies nausea, no vomiting tolerated clear liquid diet, no other acute events overnight. Review of Systems All other system reviewed and are negative Physical Exam 2 Vital Signs: Vital Signs: Last Vital Signs Temp 97.9 F 04/26/24 07:59 Pulse 90 04/26/24 07:59 Resp 16 04/26/24 07:59 BP 102/58 L 04/26/24 07:59 Pulse Ox 92 04/26/24 07:59 O2 Del Method Nasal Cannula 04/26/24 07:59 O2 Flow Rate 2 04/26/24 07:59 BMI result Body Mass Index 29.5 Const: Other: General resting comfortably in no acute distress. Anicteric sclera Neck supple no JVD. CVS regular rate rhythm, Respiratory lungs clear to auscultation, no respiratory distress, no wheeze, no rhonchi. Gastrointestinal epigastric tenderness to palpation, bowel sounds audible, no guarding , no rigidity. Extremities no edema. Neuro awake alert x3 Skin no rash Appropriate affect Objective Data Active Medications Acetaminophen (Acetaminophen 325 Mg Tablet) 650 mg PO Q6H PRN PRN Reason: Pain, Mild 1-3,fever,headache Albuterol Sulfate (Albuterol Sulfate 90 Mcg 8 Gm Inhaler) 2 puff INHALE Q6H PRN PRN Reason: Wheezing Atorvastatin Calcium (Atorvastatin Calcium 20 Mg Tablet) 20 mg PO DAILY [facility] Last Admin: 04/26/24 08:04 Dose: 20 mg Documented By: RAJ Benztropine Mesylate (Benztropine Mesylate 1 Mg Tablet) 1 mg PO BID [facility] Last Admin: 04/26/24 08:04 Dose: 1 mg Documented By: RAJ Calcium Carbonate (Calcium Carbonate 750 Mg Tab.Chew) 750 mg PO Q4H PRN PRN Reason: Heartburn Last Admin: 04/26/24 09:58 Dose: 750 mg Documented By: RAJ Finasteride (Finasteride 5 Mg Tablet) 5 mg PO DAILY [facility] Last Admin: 04/26/24 08:05 Dose: 5 mg Documented By: RAJ Fluticasone Propionate (Fluticasone Propionate Nasal 16 Gm [place]) 2 spray NOSTRIL-B DAILY [facility] Last Admin: 04/26/24 11:09 Dose: 2 spray Documented By: RAJ Fluticasone/Vilanterol (Fluticasone/Vilanterol 200/25 Blst.W.Dev) 1 puff INHALE RDAILY [facility] Gabapentin (Gabapentin 300 Mg Capsule) 300 mg PO TID PRN PRN Reason: nerve pain Potassium Chloride/Sodium Chloride (Kcl 40 Meq In 0.9 % Sodium Chl) 40 meq in 1,000 mls @ 100 mls/hr IVCONT .Q10H [facility] Last Admin: 04/26/24 01:52 Dose: 100 mls/hr Documented By: LINDA Loperamide HCl (Loperamide Hcl 2 Mg Capsule) 2 mg PO Q4H PRN PRN Reason: Diarrhea Magnesium Hydroxide (Milk Of Magnesia 30 Ml Oral.Susp) 30 ml PO DAILY PRN PRN Reason: Constipation Melatonin (Melatonin 3 Mg Tablet) 9 mg PO BEDTIME [facility] Last Admin: 04/25/24 20:05 Dose: 9 mg Documented By: LINDA Morphine Sulfate (Morphine Sulfate 4 Mg/Ml Cartridge) 3 mg IVPUSH Q4H PRN; Protocol PRN Reason: Pain, Severe (Pain Scale 7-10) Last Admin: 04/25/24 22:29 Dose: 3 mg Documented By: LINDA Olanzapine (Olanzapine 10 Mg Tablet) 20 mg PO BEDTIME [facility] Last Admin: 04/25/24 20:05 Dose: 20 mg Documented By: LINDA Ondansetron HCl (Ondansetron Hcl 4 Mg/2 Ml Vial) 4 mg IVPUSH Q8H PRN PRN Reason: Nausea and Vomiting Pantoprazole Sodium (Pantoprazole Sodium 40 Mg/10 Ml Vial) 40 mg IVPUSH BID@0630,1630 [facility] Last Admin: 04/26/24 05:47 Dose: 40 mg Documented By: LINDA Prednisolone Acetate (Prednisolone Acetate 1 % Oph Susp 5 Ml Drpbtl) 1 drop EYE-BOTH DAILY [facility] Last Admin: 04/26/24 11:09 Dose: 1 drop Documented By: RAJ Sodium Chloride (0.9 % Sodium Chloride Flush 3 Ml Syringe) 3 ml IVFLUSH QSHIFT [facility] Last Admin: 04/26/24 08:01 Dose: Not Given Documented By: RAJ Non-Admin Reason: IV Running Tamsulosin HCl (Tamsulosin Hcl 0.4 Mg Capsule) 0.8 mg PO DAILY [facility] Last Admin: 04/26/24 08:05 Dose: 0.8 mg Documented By: RAJ Vitamin D (Cholecalciferol (Vitamin D3) 25 Mcg Tablet) 50 mcg PO DAILY [facility] Last Admin: 04/26/24 08:04 Dose: 50 mcg Documented By: RAJ Labs 04/26/24 05:45 04/26/24 05:45 Labs: Laboratory Results - last 24 hr 04/25/24 04/26/24 22:39 05:45 MCV 87.7 MCH 27.5 MCHC 31.4 RDW 18.1 H Plt Count 108 L MPV 10.2 Absolute Nucleated RBC 0.000 Nucleated RBC % (auto) 0.0 Anion Gap 11 L Estim Creat Clear Calc 127.9 Estimated GFR > 60 Random Glucose 86 Calcium 7.0 L Magnesium 1.6 Influenza Type A (PCR) NEGATIVE Influenza Type B (PCR) NEGATIVE RSV RNA Qual (PCR) NEGATIVE SARS-CoV-2 RNA (RT-PCR) NEGATIVE Assessment and Plan (1) Hypomagnesemia: Status: Acute (2) Epigastric pain: Status: Acute (3) Nausea & vomiting: Status: Acute (4) Gastric cancer: Status: Acute (5) Large hiatal hernia: Status: Acute (6) Schizoaffective disorder: Status: Acute Plan 74-year-old gentleman with past medical history significant for hypertension, diabetes, coronary artery disease, type 4 paraesophageal hernia, bipolar disorder, hyperlipidemia, BPH, tremors, gastric tumor with bone Mets currently receiving chemotherapy was due for 8 cycle of FOLFOX plus nivolumab but noted to have decreased appetite, malaise, nausea vomiting epigastric pain therefore referred to [place] emergency room for further eval and treatment. Nausea, vomiting and epigastric pain/burning Multifactorial likely due to chemotherapy secondary to underlying epigastric tumor and hiatal hernia Persistent epigastric burning, nausea vomiting resolved, on IV fluids/IV ppi/antiemetics/analgesics Continue Clear liquid diet Recent upper endoscopy 12/14 showed mildly tortuous esophagus without stricture, ring, esophagitis or Goldstein's, it showed gastritis and large ulcerated gastric antral mass Spoke with [facility] [place] Dr. Dorman he recommend repeat CT abdomen and pelvis with IV and oral contrast CT chest to rule out torsion of significant para esophageal hernia Acute on chronic normocytic anemia H&H dropped but above transfusion threshold Likely due to chemotherapy and GI bleed, have dark colored stools, no melena or hematochezia Follow CBC, transfuse as needed Acute Hypokalemia potassium remained low normal will replete and follow labs Acute hypo magnesemia/acute hypocalcemia likely due to decreased by mouth intake will replace and follow labs, avoid IV calcium gluconate since asymptomatic hypocalcemia. Mild intermittent asthma No acute exacerbation continue home inhalers Schizoaffective disorder Continue olanzapine BPH continue Flomax and finasteride Hypertension soft blood pressure will hold Coreg follow BP Hyperlipidemia continue statin DVT prophylaxis compression boots, due to low platelet count and prior history of heme-positive stools Full code In my clinical judgment patient requires continued inpatient hospitalization for management of intractable nausea vomiting abdominal pain decreased by mouth intake and electrolyte abnormality requiring imaging studies and expert consultation. Quality Stroke Does the patient have a stroke diagnosis?: No VTE Prior VTE?: No VTE Risk Level:: Medical - moderate - high VTE Device Contraindication: Treatment Not Indicated VTE Drug Contraindication: N/A - Med Ordered
[2024-04-26] MEDS: Fluticasone/Vilanterol 200/25 BLST.W.DEV 1 PUFF INHALE (11:46)
[2024-04-26 11:48] VITALS: PULSE 78; RESP 14; O2SAT 96
[2024-04-26 12:03] LABS: Appearance Urine Clear; Color Urine Yellow; Glucose Urine UA Negative (Negative); Leukocyte Esterase Urine Negative (Negative); Nitrite Urine Negative (Negative); PH 5.5 (5.0-9.0); Urine Blood Negative (Negative); Urine Ketones Negative (Negative); Urine Protein Negative (Neg-Trace)
[2024-04-26] MEDS: Potassium Chloride ER 20 MEQ TAB.ER.PRT PO (12:06)
[2024-04-26] MEDS: Magnesium Sulfate/D5W 1 GM/100 ML PIGGYBACK IV (12:07)
--- NOTE | 2024-04-26 13:20 | MHC.CM.PN ---
pt from [facility] who will transport pt when dcd during the week on the weekend they can not transport on w/e pts dc paperwork will be faxed and placed on chart dc plan return to residential pts hcp is amish hale [phone] his brother
[2024-04-26 15:19] VITALS: BP 108/62; PULSE 101; RESP 20; TEMP 36.6; O2SAT 93
[2024-04-26] MEDS: iohexoL 350 MG/ML 100 ML INFUS..BTL IV (15:19)
[2024-04-26] MEDS: Calcium + Vitamin D 250 MG TABLET 500 MG PO (16:50)
[2024-04-26] MEDS: 0.9 % Sodium Chloride Flush 3 ML SYRINGE IVFLUSH ×2 (16:50→19:33)
[2024-04-26 19:24] VITALS: BP 100/63; PULSE 96; RESP 20; TEMP 36.9; O2SAT 92
[2024-04-26] MEDS: Melatonin 3 MG TABLET 9 MG PO (19:32)
[2024-04-26] MEDS: OLANZapine 10 MG TABLET 20 MG PO (19:32)
[2024-04-27] VITALS (8 sets, daily range): BP systolic 97–103; BP diastolic 52–60; PULSE 89–123; RESP 16–20; TEMP 37–37.6; O2SAT 88–95
[2024-04-27] MEDS: Pantoprazole Sodium 40 MG/10 ML VIAL IVPUSH ×2 (05:45→15:41)
[2024-04-27 06:22] LABS: Hematocrit 28.9 % (42.0-52.0); Mean Corpuscular HGB Conc 31.1 g/dl (31.0-36.0); Mean Corpuscular Volume 86.8 fL (80.0-98.0); Mean Platelet Volume 8.9 fL (9.4-12.4); Platelet Count 127 X10*3/uL (160-400); Red Blood Count 3.33 X10*6/uL (4.60-5.80)
[2024-04-27 06:24] LABS: White Blood Count 2.5 X10*3/uL (4.8-10.8)
[2024-04-27 06:33] LABS: Anion Gap 8 (12-20); Blood Urea Nitrogen 5 mg/dL (9-16); Calcium 7.7 mg/dL (8.4-10.2); Carbon Dioxide 25 mmol/L (22-29); Chloride 112 mmol/L (96-108); Creatinine Clr Calc Pharmacy 135.9; Estimated Glomerular Filt Rate > 60; Glucose Random 94 mg/dL (60-115); Magnesium 1.3 mg/dL (1.6-2.6); Potassium 3.4 mmol/L (3.3-5.1); Sodium 142 mmol/L (135-145)
[2024-04-27] MEDS: Magnesium Sulfate/H2O 2 GM/50 ML PIGGYBACK IV (07:03)
[2024-04-27] MEDS: 0.9 % Sodium Chloride Flush 3 ML SYRINGE IVFLUSH ×3 (07:03→22:39)
[2024-04-27] MEDS: Fluticasone/Vilanterol 200/25 BLST.W.DEV 1 PUFF INHALE (07:33)
[2024-04-27] MEDS: Calcium + Vitamin D 250 MG TABLET 500 MG PO ×2 (08:40→16:29)
[2024-04-27] MEDS: Atorvastatin Calcium 20 MG TABLET PO (08:41)
[2024-04-27] MEDS: Cholecalciferol (Vitamin D3) 25 MCG TABLET 50 MCG PO (08:41)
[2024-04-27] MEDS: Tamsulosin HCL 0.4 MG CAPSULE 0.8 MG PO (08:41)
[2024-04-27] MEDS: Benztropine Mesylate 1 MG TABLET PO ×2 (08:41→19:50)
[2024-04-27] MEDS: Finasteride 5 MG TABLET PO (08:41)
[2024-04-27] MEDS: Fluticasone Propionate Nasal 16 GM SPRAY 2 SPRAY NOSTRIL-B (09:27)
[2024-04-27] MEDS: prednisoLONE Acetate 1 % Oph Susp 5 ML DRPBTL 1 DROP EYE-LEFT (09:28)
[2024-04-27] MEDS: ondansetron HCL 4 MG/2 ML VIAL IVPUSH (10:29)
--- NOTE | 2024-04-27 10:46 | P.PNIM_ITS ---
Subjective Subjective Date of Service: 04/27/24 Interval History: Being followed for nausea vomiting and abdominal pain This morning complaining of intermittent cough bringing up clear phlegm, vomited after breakfast, complaining of shortness of breath, no fevers, no chills, no worsening cough, complaining of epigastric discomfort. on clear liquid diet. Review of Systems All other symptoms reviewed and negative Physical Exam 2 Vital Signs: Vital Signs: Last Vital Signs Temp 98.7 F 04/27/24 07:50 Pulse 96 04/27/24 07:50 Resp 17 04/27/24 07:50 BP 103/57 L 04/27/24 07:50 Pulse Ox 92 04/27/24 07:50 O2 Del Method Nasal Cannula 04/27/24 07:50 O2 Flow Rate 2 04/27/24 07:50 BMI result Body Mass Index 29.5 Const: Other: General resting comfortably in no acute distress. Anicteric sclera Neck supple no JVD. CVS regular rate rhythm, Respiratory lungs coarse breath sounds/rhonchi, no respiratory distress Gastrointestinal mild epigastric tenderness to palpation, bowel sounds audible, no guarding , no rigidity. Extremities no edema. Neuro awake alert x3 Skin no rash Appropriate affect Objective Data Active Medications Acetaminophen (Acetaminophen 325 Mg Tablet) 650 mg PO Q6H PRN PRN Reason: Pain, Mild 1-3,fever,headache Albuterol Sulfate (Albuterol Sulfate 90 Mcg 8 Gm Inhaler) 2 puff INHALE Q6H PRN PRN Reason: Wheezing Atorvastatin Calcium (Atorvastatin Calcium 20 Mg Tablet) 20 mg PO DAILY [facility] Last Admin: 04/27/24 08:41 Dose: 20 mg Documented By: JACQUELYN Benztropine Mesylate (Benztropine Mesylate 1 Mg Tablet) 1 mg PO BID [facility] Last Admin: 04/27/24 08:41 Dose: 1 mg Documented By: JACQUELYN Calcium Carbonate (Calcium Carbonate 750 Mg Tab.Chew) 750 mg PO Q4H PRN PRN Reason: Heartburn Last Admin: 04/26/24 17:00 Dose: 750 mg Documented By: RAJ Calcium Carbonate/Cholecalciferol (Calcium + Vitamin D 250 Mg Tablet) 500 mg PO BIDWM [facility] Last Admin: 04/27/24 08:40 Dose: 500 mg Documented By: JACQUELYN Finasteride (Finasteride 5 Mg Tablet) 5 mg PO DAILY [facility] Last Admin: 04/27/24 08:41 Dose: 5 mg Documented By: JACQUELYN Fluticasone Propionate (Fluticasone Propionate Nasal 16 Gm [place]) 2 spray NOSTRIL-B DAILY [facility] Last Admin: 04/27/24 09:27 Dose: 2 spray Documented By: CHLOE Fluticasone/Vilanterol (Fluticasone/Vilanterol 200/25 Blst.W.Dev) 1 puff INHALE RDAILY [facility] Last Admin: 04/27/24 07:33 Dose: 1 puff Documented By: ABEL Gabapentin (Gabapentin 300 Mg Capsule) 300 mg PO TID PRN PRN Reason: nerve pain Loperamide HCl (Loperamide Hcl 2 Mg Capsule) 2 mg PO Q4H PRN PRN Reason: Diarrhea Magnesium Hydroxide (Milk Of Magnesia 30 Ml Oral.Susp) 30 ml PO DAILY PRN PRN Reason: Constipation Melatonin (Melatonin 3 Mg Tablet) 9 mg PO BEDTIME [facility] Last Admin: 04/26/24 19:32 Dose: 9 mg Documented By: LINDA Morphine Sulfate (Morphine Sulfate 4 Mg/Ml Cartridge) 3 mg IVPUSH Q4H PRN; Protocol PRN Reason: Pain, Severe (Pain Scale 7-10) Last Admin: 04/25/24 22:29 Dose: 3 mg Documented By: LINDA Olanzapine (Olanzapine 10 Mg Tablet) 20 mg PO BEDTIME [facility] Last Admin: 04/26/24 19:32 Dose: 20 mg Documented By: LINDA Ondansetron HCl (Ondansetron Hcl 4 Mg/2 Ml Vial) 4 mg IVPUSH Q8H PRN PRN Reason: Nausea and Vomiting Last Admin: 04/27/24 10:29 Dose: 4 mg Documented By: CHLOE Pantoprazole Sodium (Pantoprazole Sodium 40 Mg/10 Ml Vial) 40 mg IVPUSH BID@0630,1630 [facility] Last Admin: 04/27/24 05:45 Dose: 40 mg Documented By: LINDA Prednisolone Acetate (Prednisolone Acetate 1 % Oph Susp 5 Ml Drpbtl) 1 drop EYE-LEFT DAILY [facility] Last Admin: 04/27/24 09:28 Dose: 1 drop Documented By: CHLOE Sodium Chloride (0.9 % Sodium Chloride Flush 3 Ml Syringe) 3 ml IVFLUSH QSHIFT [facility] Last Admin: 04/27/24 07:03 Dose: 3 ml Documented By: CHLOE Tamsulosin HCl (Tamsulosin Hcl 0.4 Mg Capsule) 0.8 mg PO DAILY [facility] Last Admin: 04/27/24 08:41 Dose: 0.8 mg Documented By: JACQUELYN Vitamin D (Cholecalciferol (Vitamin D3) 25 Mcg Tablet) 50 mcg PO DAILY [facility] Last Admin: 04/27/24 08:41 Dose: 50 mcg Documented By: JACQUELYN Labs 04/27/24 05:16 04/27/24 05:16 Labs: Laboratory Results - last 24 hr 04/26/24 04/27/24 11:49 05:16 MCV 86.8 MCH 27.0 MCHC 31.1 RDW 18.0 H Plt Count 127 L MPV 8.9 L Absolute Nucleated RBC 0.000 Nucleated RBC % (auto) 0.0 Anion Gap 8 L Estim Creat Clear Calc 135.9 Estimated GFR > 60 Random Glucose 94 Calcium 7.7 L D Magnesium 1.3 L* Urine Color Yellow Urine Appearance Clear Urine pH 5.5 Ur Specific [place] 1.010 Urine Protein Negative Urine Glucose (UA) Negative Urine Ketones Negative Urine Blood Negative Urine Nitrite Negative Ur Leukocyte Esterase Negative Assessment and Plan (1) Hypomagnesemia: Status: Acute (2) Epigastric pain: Status: Acute (3) Nausea & vomiting: Status: Acute (4) Gastric cancer: Status: Acute (5) Large hiatal hernia: Status: Acute Plan 74-year-old gentleman with past medical history significant for hypertension, diabetes, coronary artery disease, type 4 paraesophageal hernia, bipolar disorder, hyperlipidemia, BPH, tremors, 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 Nausea, vomiting and epigastric pain/burning Multifactorial likely due to chemotherapy secondary to underlying epigastric tumor and hiatal hernia Noted to have recurrent vomiting this morning ,epigastric burning improved, continue IV ppi/antiemetics/ IV morphine Continue Clear liquid diet Recent upper endoscopy 12/14 showed mildly tortuous esophagus without stricture, ring, esophagitis or Goldstein's, it showed gastritis and large ulcerated gastric antral mass CT abdomen and pelvis with IV and oral contrast and CT chest showed elevated hemidiaphragm with left lower lobe consolidation/atelectasis, metastatic skeletal sclerotic disease, intrathoracic stomach which is incompletely imaged, marked wall thickening of the pylorus of the stomach likely representing neoplasm or gastritis or ulcer disease, diffuse osseous metastatic disease and tiny bilateral effusion. Case discussed with Dr. Shah she recommend upper endoscopy to look for tumor response to chemotherapy Case discussed with Dr. Dorman he will proceed with upper endoscopy if patient is clinically stable in regard to respiratory status NPO after midnight Shortness of breaths/wheeze question aspiration pneumonia Denies fever, no chills , recurrent vomiting, CT chest showing left lower lobe consolidation Start IV Zosyn 4.5 g q.6 hours monitor closely for side effect of redness of eye to pcn Cough syrup as needed Recommend small frequent meals/keep upright position after each meal due to large hiatal hernia Acute on chronic normocytic anemia H&H dropped but above transfusion threshold Likely due to chemotherapy and GI bleed, have dark colored stools, no melena or hematochezia Follow CBC, transfuse as needed, stool guaiac pending Pancytopenia due to chemotherapy, stable CBC Acute Hypokalemia repleted and normalized Acute hypo magnesemia/acute hypocalcemia likely due to decreased by mouth intake will replace and follow labs. Mild intermittent asthma No acute exacerbation continue home inhalers, coarse breath sounds with occasional wheeze likely due to aspiration hold steroids Schizoaffective disorder Continue olanzapine BPH continue Flomax and finasteride Hypertension soft blood pressure will hold Coreg follow BP Hyperlipidemia continue statin DVT prophylaxis compression boots, due to low platelet count and prior history of heme-positive stools Full code In my clinical judgment patient requires continued inpatient hospitalization for management of intractable nausea vomiting abdominal pain decreased by mouth intake and electrolyte abnormality , aspiration pneumonia on IV antibiotic and possible upper endoscopy at a.m. Quality Stroke Does the patient have a stroke diagnosis?: No VTE Prior VTE?: No VTE Risk Level:: Medical - moderate - high VTE Device Contraindication: Treatment Not Indicated VTE Drug Contraindication: N/A - Med Ordered
[2024-04-27] MEDS: Piperacillin Sodium/Tazobactam 4.5 GM in 0.9 % Sodium Chloride 100 ML IV ×3 (12:04→22:33)
[2024-04-27] MEDS: Albuterol/Iprat 2.5/0.5MG 3 ML AMPUL.NEB INHALE ×2 (14:23→19:07)
--- NOTE | 2024-04-27 15:30 | MHC.CM.PN ---
per rounds pt to have diet advanced today pt not medically ready for dc [facility]
--- NOTE | 2024-04-27 15:39 | MHC.CM.PN ---
paperwork on chart from shelter housekeeping aide is lani delvalle his number is [phone] program nurse is shana gonzalez [phone] group ellyn e will provide transport home for pt
--- NOTE | 2024-04-27 18:18 | P.PNGI_ITS ---
Subjective Subjective Date of Service: 04/27/24 Interval History: vomitied this morning, feeling sob, imaging did not show any torsion or incarecerated hernia denies constipation Critical Care Time (minutes): 0 Physical Exam 2 Vital Signs: Vital Signs: Last Vital Signs Temp 99.7 F 04/27/24 14:57 Pulse 114 H 04/27/24 15:24 Resp 17 04/27/24 14:57 BP 102/60 04/27/24 15:24 Pulse Ox 95 04/27/24 14:57 O2 Del Method Room Air 04/27/24 14:57 O2 Flow Rate 2 04/27/24 07:50 BMI result Body Mass Index 29.5 EXAM: GENERAL: The patient is slightly sob VITAL SIGNS:see workflow HEENT: Nonicteric sclerae, PERRLA, EOMI. Oropharynx clear. Moist mucous membranes. Conjunctivae appear well perfused. No thyroid mass. CHEST: Chest wall is nontender. HEART: Regular rate and rhythm without murmurs. LUNGS: Clear to auscultation bilaterally. ABDOMEN: Soft, positive bowel sounds, nontender, no organomegaly.no flank tenderness SKIN: No rash, no excessive bruising, petechiae, or purpura. NEUROLOGIC: Cranial nerves II-XII intact without motor/sensory deficit. Psych: normal affect Objective Data Labs 04/27/24 05:16 04/27/24 05:16 Labs: Laboratory Results - last 24 hr 04/27/24 05:16 WBC 2.5 L RBC 3.33 L Hgb 9.0 L Hct 28.9 L MCV 86.8 MCH 27.0 MCHC 31.1 RDW 18.0 H Plt Count 127 L MPV 8.9 L Absolute Nucleated RBC 0.000 Nucleated RBC % (auto) 0.0 Sodium 142 Potassium 3.4 Chloride 112 H Carbon Dioxide 25 Anion Gap 8 L BUN 5 L Creatinine 0.48 L Estim Creat Clear Calc 135.9 Estimated GFR > 60 Random Glucose 94 Calcium 7.7 L D Magnesium 1.3 L* Imaging CT scan - abdomen: Attestation: I personally reviewed and interpreted this imaging study as follows: (thickened stomach, full stomach herniated into the chest) Procedures Date of Service Date of Service: 04/27/24 Progress Note: A&P Assessment and plan (1) Nausea & vomiting: Status: Acute Plan 1/ Gastric cancer, possible progression of disease, oncology requesting f/u EGD to reassess, uncertain if he has aspirated from vomiting today. He had burning discomfort which could be due to esophagitis PLAN: /1 tentative EGD tomorrow if breathing and vitals are normal- otherwise consider ba swallow and follow thru 2/ high dose BID PPI in the interim Time Spent With Patient Time: Total time managing care of this patient today ____ minutes. Quality Stroke Does the patient have a stroke diagnosis?: No VTE Prior VTE?: No VTE Risk Level:: Medical - moderate - high VTE Device Contraindication: Treatment Not Indicated VTE Drug Contraindication: N/A - Med Ordered
[2024-04-27] MEDS: Melatonin 3 MG TABLET 9 MG PO (19:49)
[2024-04-27] MEDS: OLANZapine 10 MG TABLET 20 MG PO (19:50)
[2024-04-28] VITALS (10 sets, daily range): BP systolic 92–113; BP diastolic 55–64; PULSE 100–118; RESP 16–20; TEMP 36.3–37.8; O2SAT 84–97
[2024-04-28] MEDS: Piperacillin Sodium/Tazobactam 4.5 GM in 0.9 % Sodium Chloride 100 ML IV ×4 (05:26→22:30)
[2024-04-28] MEDS: Pantoprazole Sodium 40 MG/10 ML VIAL IVPUSH ×2 (05:26→16:35)
[2024-04-28 06:54] LABS: Anion Gap 10 (12-20); Blood Urea Nitrogen 7 mg/dL (9-16); Calcium 7.8 mg/dL (8.4-10.2); Carbon Dioxide 27 mmol/L (22-29); Chloride 106 mmol/L (96-108); Creatinine Clr Calc Pharmacy 118.6; Estimated Glomerular Filt Rate > 60; Glucose Random 95 mg/dL (60-115); Magnesium 1.2 mg/dL (1.6-2.6); Potassium 3.5 mmol/L (3.3-5.1); Sodium 139 mmol/L (135-145)
[2024-04-28] MEDS: Lactated Ringers 1,000 ML 80 ML IVCONT ×2 (08:13→09:25)
[2024-04-28] MEDS: Albuterol Sulfate (0.083%) 2.5 MG/3 ML VIAL.NEB INHALE (08:13)
--- NOTE | 2024-04-28 08:14 | HO.ANESPROP2 ---
[facility] Active Problems Active Problems: All Active Problems Hypomagnesemia (Acute) Epigastric pain (Acute) Nausea & vomiting (Acute) Hypomagnesemia (Acute) Gastric cancer (Acute) Multiple gastric ulcers (Acute) Gastric mass (Acute) Large hiatal hernia (Acute) Abnormal gastrointestinal PET scan (Acute) Metastatic bone tumor (Acute) SIRS (systemic inflammatory response syndrome) (Acute) Syncope (Acute ~01/19/21) Acute on chronic respiratory failure with hypoxia (Acute) Tremor (Acute) Mild intermittent asthma (Acute) Coronary artery disease (Acute) Schizoaffective disorder (Acute) HTN (hypertension) (Acute) Acid reflux (Acute) Heme + stool (Acute) Past Medical History Medical History Tremor Mild intermittent asthma Coronary artery disease Schizoaffective disorder HTN (hypertension) Heme + stool Family History Family History Unknown No problems noted. Mother Colon cancer Family history of problems with anesthesia: No Surgical History Surgical History History of esophagogastroduodenoscopy (EGD) Hx of colonoscopy History of Problems with Anesthesia: No Social History Social History Household Members: Other Household Members Other:: residential Housing: House Housing Other:: residential Are you a primary adult care provider to a significant other at home: No Do you presently have visiting nurse or other home services: No Alcohol intake: never Patient Tobacco Use Status: Former Tobacco user service: No Current occupational status: disabled Meds Allergies Allergy/AdvReac Type Severity Reaction Status Date / Time Penicillins [PENICILLINS] Allergy Unknown EYES GET Verified 04/25/24 11:56 RED latex Allergy Unknown Verified 02/20/24 16:36 Active Medications: Current Medications Acetaminophen (Acetaminophen 325 Mg Tablet) 650 mg PO Q6H PRN PRN Reason: Pain, Mild 1-3,fever,headache Albuterol Sulfate (Albuterol Sulfate 90 Mcg 8 Gm Inhaler) 2 puff INHALE Q6H PRN PRN Reason: Wheezing Albuterol Sulfate (Albuterol Sulfate (0.083%) 2.5 Mg/3 Ml Vial.Neb) 2.5 mg INHALE ONCE PRN PRN Reason: Shortness of Breath/Wheezing Last Admin: 04/28/24 08:13 Dose: 2.5 mg Albuterol/Ipratropium (Albuterol/Iprat 2.5/0.5mg 3 Ml Ampul.Neb) 3 ml INHALE RQ6H WHILE AWAKE [facility] Last Admin: 04/28/24 07:47 Dose: Not Given Atorvastatin Calcium (Atorvastatin Calcium 20 Mg Tablet) 20 mg PO DAILY [facility] Last Admin: 04/27/24 08:41 Dose: 20 mg Benztropine Mesylate (Benztropine Mesylate 1 Mg Tablet) 1 mg PO BID [facility] Last Admin: 04/27/24 19:50 Dose: 1 mg Calcium Carbonate (Calcium Carbonate 750 Mg Tab.Chew) 750 mg PO Q4H PRN PRN Reason: Heartburn Last Admin: 04/26/24 17:00 Dose: 750 mg Calcium Carbonate/Cholecalciferol (Calcium + Vitamin D 250 Mg Tablet) 500 mg PO BIDWM [facility] Last Admin: 04/27/24 16:29 Dose: 500 mg Finasteride (Finasteride 5 Mg Tablet) 5 mg PO DAILY [facility] Last Admin: 04/27/24 08:41 Dose: 5 mg Fluticasone Propionate (Fluticasone Propionate Nasal 16 Gm [place]) 2 spray NOSTRIL-B DAILY [facility] Last Admin: 04/27/24 09:27 Dose: 2 spray Fluticasone/Vilanterol (Fluticasone/Vilanterol 200/25 Blst.W.Dev) 1 puff INHALE RDAILY [facility] Last Admin: 04/28/24 07:47 Dose: Not Given Gabapentin (Gabapentin 300 Mg Capsule) 300 mg PO TID PRN PRN Reason: nerve pain Piperacillin Sod/Tazobactam (Sod 4.5 gm/ Sodium Chloride) 100 mls @ 200 mls/hr IV Q6H [facility] Last Infusion: 04/28/24 06:06 Dose: Infused Lactated Ringer's (Lr) 1,000 mls @ 80 mls/hr IVCONT .[id number] [facility] Last Admin: 04/28/24 08:13 Dose: 80 mls/hr Loperamide HCl (Loperamide Hcl 2 Mg Capsule) 2 mg PO Q4H PRN PRN Reason: Diarrhea Magnesium Hydroxide (Milk Of Magnesia 30 Ml Oral.Susp) 30 ml PO DAILY PRN PRN Reason: Constipation Melatonin (Melatonin 3 Mg Tablet) 9 mg PO BEDTIME [facility] Last Admin: 04/27/24 19:49 Dose: 9 mg Morphine Sulfate (Morphine Sulfate 4 Mg/Ml Cartridge) 3 mg IVPUSH Q4H PRN; Protocol PRN Reason: Pain, Severe (Pain Scale 7-10) Last Admin: 04/25/24 22:29 Dose: 3 mg Olanzapine (Olanzapine 10 Mg Tablet) 20 mg PO BEDTIME [facility] Last Admin: 04/27/24 19:50 Dose: 20 mg Ondansetron HCl (Ondansetron Hcl 4 Mg/2 Ml Vial) 4 mg IVPUSH Q8H PRN PRN Reason: Nausea and Vomiting Last Admin: 04/27/24 10:29 Dose: 4 mg Pantoprazole Sodium (Pantoprazole Sodium 40 Mg/10 Ml Vial) 40 mg IVPUSH BID@0630,1630 [facility] Last Admin: 04/28/24 05:26 Dose: 40 mg Prednisolone Acetate (Prednisolone Acetate 1 % Oph Susp 5 Ml Drpbtl) 1 drop EYE-LEFT DAILY [facility] Last Admin: 04/27/24 09:28 Dose: 1 drop Sodium Chloride (0.9 % Sodium Chloride Flush 3 Ml Syringe) 3 ml IVFLUSH QSHIFT [facility] Last Admin: 04/27/24 22:39 Dose: 3 ml Tamsulosin HCl (Tamsulosin Hcl 0.4 Mg Capsule) 0.8 mg PO DAILY [facility] Last Admin: 04/27/24 08:41 Dose: 0.8 mg Vitamin D (Cholecalciferol (Vitamin D3) 25 Mcg Tablet) 50 mcg PO DAILY [facility] Last Admin: 04/27/24 08:41 Dose: 50 mcg Home Medications ?Medication ?Instructions ?Recorded ?Confirmed ?Last Taken ?Type atorvastatin 20 mg tablet 20 mg PO DAILY 10/11/20 04/25/24 12/14/23 History olanzapine 20 mg tablet 20 mg PO BEDTIME 10/11/20 04/25/24 Unknown History albuterol sulfate 90 mcg/actuation 2 puff inhalation Q6H PRN Wheezing 12/20/20 04/25/24 Unknown History aerosol inhaler cetirizine 10 mg tablet 10 mg PO BEDTIME 12/20/20 04/25/24 Unknown History fluticasone propionate 50 2 spray intranasal DAILY 12/20/20 04/25/24 12/29/23 History mcg/actuation nasal spray,suspension gabapentin 300 mg capsule 300 mg PO TID PRN nerve pain 11/13/23 04/25/24 12/29/23 History acetaminophen 325 mg tablet 650 mg PO Q8H PRN pain 12/08/23 04/25/24 Unknown History camphor 3.1 %-methyl salicylate 10 3.1 patch topical BID 12/08/23 04/25/24 Unknown History %-menthol 6 % topical patch (Salonpas) carvedilol 12.5 mg tablet 12.5 mg PO BID 12/08/23 04/25/24 12/29/23 History cholecalciferol (vitamin D3) 50 50 mcg PO DAILY 12/08/23 04/25/24 12/29/23 History mcg (2,000 unit) capsule ferrous sulfate 325 mg (65 mg 325 mg PO MOWEFR 12/08/23 04/25/24 Unknown History iron) tablet finasteride 5 mg tablet 5 mg PO DAILY 12/08/23 04/25/24 Unknown History prednisolone acetate 1 % eye 1 drp ophthalmic-Left DAILY 12/08/23 04/26/24 Unknown History drops,suspension tamsulosin 0.4 mg capsule 0.8 mg PO DAILY 12/08/23 04/25/24 Unknown History fluticasone furoate 200 1 ea inhalation DAILY 12/29/23 04/25/24 12/29/23 History mcg-vilanterol 25 mcg/dose inhalation powder (Breo Ellipta) benztropine 1 mg tablet 1 mg PO BID 04/25/24 04/25/24 Unknown History melatonin 10 mg capsule 10 mg PO BEDTIME 04/25/24 04/25/24 Unknown History omeprazole 20 mg capsule,delayed 20 mg PO BID@0630,1630 04/25/24 04/25/24 Unknown History release ondansetron 8 mg disintegrating 8 mg PO Q8H PRN Nausea And Vomiting 04/25/24 04/25/24 Unknown History tablet sennosides 8.6 mg tablet (Senokot) 8.6 mg PO BEDTIME PRN Constipation 04/25/24 04/25/24 Unknown History Exam Height,Weight and Vital Signs: Height 5 ft 5 in Weight 80.5 kg Last Vital Signs Temp 100.0 F 04/28/24 07:46 Pulse 118 H 04/28/24 07:46 Resp 20 04/28/24 07:46 BP 92/62 04/28/24 07:46 Pulse Ox 84 L 04/28/24 07:46 O2 Del Method Room Air 04/28/24 07:46 O2 Flow Rate 2 04/28/24 07:45 Pertinent Lab Results Pertinent Lab Results: Laboratory Tests 04/25/24 04/26/24 04/26/24 22:39 05:45 11:49 WBC 3.1 L RBC 3.16 L Hgb 8.7 L Hct 27.7 L MCV 87.7 MCH 27.5 MCHC 31.4 RDW 18.1 H Plt Count 108 L MPV 10.2 Absolute Nucleated RBC 0.000 Nucleated RBC % (auto) 0.0 Sodium 143 Potassium 3.3 Chloride 114 H Carbon Dioxide 21 L Anion Gap 11 L BUN 8 L Creatinine 0.51 Estim Creat Clear Calc 127.9 Estimated GFR > 60 Random Glucose 86 Calcium 7.0 L Magnesium 1.6 Urine Color Yellow Urine Appearance Clear Urine pH 5.5 Ur Specific [place] 1.010 Urine Protein Negative Urine Glucose (UA) Negative Urine Ketones Negative Urine Blood Negative Urine Nitrite Negative Ur Leukocyte Esterase Negative Influenza Type A (PCR) NEGATIVE Influenza Type B (PCR) NEGATIVE RSV RNA Qual (PCR) NEGATIVE SARS-CoV-2 RNA (RT-PCR) NEGATIVE 04/27/24 04/28/24 05:16 05:24 WBC 2.5 L RBC 3.33 L Hgb 9.0 L Hct 28.9 L MCV 86.8 MCH 27.0 MCHC 31.1 RDW 18.0 H Plt Count 127 L MPV 8.9 L Absolute Nucleated RBC 0.000 Nucleated RBC % (auto) 0.0 Sodium 142 139 Potassium 3.4 3.5 Chloride 112 H 106 Carbon Dioxide 25 27 Anion Gap 8 L 10 L BUN 5 L 7 L Creatinine 0.48 L 0.55 Estim Creat Clear Calc 135.9 118.6 Estimated GFR > 60 > 60 Random Glucose 94 95 Calcium 7.7 L D 7.8 L Magnesium 1.3 L* 1.2 L* Urine Color Urine Appearance Urine pH Ur Specific [place] Urine Protein Urine Glucose (UA) Urine Ketones Urine Blood Urine Nitrite Ur Leukocyte Esterase Influenza Type A (PCR) Influenza Type B (PCR) RSV RNA Qual (PCR) SARS-CoV-2 RNA (RT-PCR) Airway Mallampati Class: III TM Dist: >3cm Neck ROM: Full Assessment and Plan Assessment Anesthesia Assessment: Anesthesia Plan Discussed and Chart Reviewed Final Anesthetic Review Family History of Problems with Anesthesia: No History of Problems with Anesthesia: No NPO: Yes ASA Class: III Final Preanesthetic Review: No Changes in Pt Med Stat, Meds/Allgs Chart Reviewed, Consent Obtained/Reviewed and Anes Risks/Benef Reviewed Patient Risk: Intermediate Procedure Risk: Low Anesthetic Plan Anesthetic Plan: TIVA Disposition: Standard PACU
--- NOTE | 2024-04-28 08:21 | P.PNGI_ITS ---
Subjective Subjective Date of Service: 04/28/24 Interval History: breathing stable still has the burning discomfort retrosternally been on clears no further vomiting Critical Care Time (minutes): 0 Physical Exam 2 Vital Signs: Vital Signs: Last Vital Signs Temp 100.0 F 04/28/24 07:46 Pulse 118 H 04/28/24 07:46 Resp 20 04/28/24 07:46 BP 92/62 04/28/24 07:46 Pulse Ox 84 L 04/28/24 07:46 O2 Del Method Room Air 04/28/24 07:46 O2 Flow Rate 2 04/28/24 07:45 BMI result Body Mass Index 29.5 EXAM: GENERAL: The patient is well developed and nontoxic. VITAL SIGNS:see workflow HEENT: Nonicteric sclerae, PERRLA, EOMI. Oropharynx clear. Moist mucous membranes. Conjunctivae appear well perfused. No thyroid mass. CHEST: Chest wall is nontender. HEART: Regular rate and rhythm without murmurs. LUNGS: Clear to auscultation bilaterally. ABDOMEN: Soft, positive bowel sounds, nontender, no organomegaly.no flank tenderness SKIN: No rash, no excessive bruising, petechiae, or purpura. NEUROLOGIC: Cranial nerves II-XII intact without motor/sensory deficit. pill rolling and parkinsonian affect Psych: normal affect Objective Data Labs 04/27/24 05:16 04/28/24 05:24 Labs: Laboratory Results - last 24 hr 04/28/24 05:24 Sodium 139 Potassium 3.5 Chloride 106 Carbon Dioxide 27 Anion Gap 10 L BUN 7 L Creatinine 0.55 Estim Creat Clear Calc 118.6 Estimated GFR > 60 Random Glucose 95 Calcium 7.8 L Magnesium 1.2 L* Procedures Date of Service Date of Service: 04/28/24 Progress Note: A&P Assessment and plan (1) Gastric cancer: Status: Acute Plan 1/ Gastric cancer and retrosternal discomfort PLAN: /1 EGD for further assessement 2/ cont with PPI, can add carafate and see if helps Time Spent With Patient Time: Total time managing care of this patient today ____ minutes. Quality Stroke Does the patient have a stroke diagnosis?: No VTE Prior VTE?: No VTE Risk Level:: Medical - moderate - high VTE Device Contraindication: Treatment Not Indicated VTE Drug Contraindication: N/A - Med Ordered
--- NOTE | 2024-04-28 08:23 | MHC.SHP ---
Pre-Procedural Eval Section A - 24 Hr Update-Section A only Date of Service: 04/28/24 The patient is an INPATIENT: Yes The patient has been examined within 24 hours of the surgical procedure. The History & Physical has been completed within 30 days and I have reviewed it.: Yes Section B - Complete if H&P > 30 days Chief Complaint: intractable nausea vomiting and abdominal pain Allergies: Allergies Allergy/AdvReac Type Severity Reaction Status Date / Time Penicillins [PENICILLINS] Allergy Unknown EYES GET Verified 04/25/24 11:56 RED latex Allergy Unknown Verified 02/20/24 16:36 Plan Diagnosis/Plan: Unchanged I have reviewed the history and physical and performed a pertinent physical examination on my patient. No changes have occurred unless specified. Time Spent With Patient Time: Total time managing care of this patient today ____ minutes.
[2024-04-28 08:28] LABS: Glucose, Whole Blood 104 mg/dL (60-115)
--- NOTE | 2024-04-28 08:38 | W.PM.OPN ---
Operative Note Operative Note Date of Service: 04/28/24 Narrative: Procedure Description: EGD Indication: gastric cancer Anesthesia: MAC FLEXIBLE TRANSORAL UPPER GASTROINTESTINAL ENDOSCOPY UPPER ENDOSCOPY Consent: Indications for the procedure and potential complications of bleeding, perforation, reaction to medications and missed diagnosis were discussed with the patient and informed consent was obtained. Instrument: Olympus GIF H 190 J mid size upper endoscope Monitoring: Vital signs and clinical assessment, continuous EKG monitoring, Pulse oximetry, Carbon Dioxide monitoring and blood pressure monitoring were done throughout the procedure. Procedure: The patient was placed in the left lateral decubitis position and pre-procedure medications were administered and a bite block was placed. The endoscope was inserted into the mouth and advanced under direct vision to the third part of duodenum. A careful inspection was made as the upper endoscope was withdrawn including a retroflexed examination of the proximal stomach; Findings and interventions are described below. Findings: Larynx:normal Esophagus: GE junction at 35 cm, diaphragm hiatus at 40 cm, consistent with fixed hiaral hernia, Erosive esophagitis streaks noted in distal esophagus Stomach: small amount of liquid fluid and retained food noted . Grade 3 flap valve on retroflexed examination of the cardia. Infiltrating mass lesion around the pylorus and spreading along the incisura causing partial gastric outlet obstruction, but I was able to get the scope through Duodenum: Normal Intervention: none Impression/Findings: gastric outlet obstruction hiatal hernia erosive esophagitis PLAN: High dose PPI with carafate GERD precautions soft diet, eat upright- small meals
[2024-04-28] MEDS: 0.9 % Sodium Chloride Flush 3 ML SYRINGE IVFLUSH ×3 (09:22→20:47)
[2024-04-28] MEDS: Calcium + Vitamin D 250 MG TABLET 500 MG PO ×2 (10:46→16:35)
[2024-04-28] MEDS: Cholecalciferol (Vitamin D3) 25 MCG TABLET 50 MCG PO (10:47)
[2024-04-28] MEDS: Atorvastatin Calcium 20 MG TABLET PO (10:47)
[2024-04-28] MEDS: Benztropine Mesylate 1 MG TABLET PO ×2 (10:47→20:47)
[2024-04-28] MEDS: Tamsulosin HCL 0.4 MG CAPSULE 0.8 MG PO (10:47)
[2024-04-28] MEDS: Finasteride 5 MG TABLET PO (10:47)
[2024-04-28] MEDS: prednisoLONE Acetate 1 % Oph Susp 5 ML DRPBTL 1 DROP EYE-LEFT (10:48)
--- NOTE | 2024-04-28 11:10 | MHC.CM.PN ---
PER MD ROUNDS, PT MAY BE READY TO DC TOMORROW DCP: RETURN TO [facility] ORDERS ON PTS CHART FOR MD TO SIGN AT DC STAFF TO TRANSPORT
[2024-04-28] MEDS: Magnesium Sulfate/H2O 2 GM/50 ML PIGGYBACK IV ×2 (12:51→17:29)
[2024-04-28] MEDS: Albuterol/Iprat 2.5/0.5MG 3 ML AMPUL.NEB INHALE ×2 (15:30→20:28)
[2024-04-28] MEDS: Sucralfate Oral Suspension 1 GM/10 ML ORAL.SUSP PO ×2 (16:35→20:48)
--- NOTE | 2024-04-28 16:35 | HO.PM.IMPN ---
Subjective Subjective Date of Service: 04/28/24 Interval History: seen and examined this morning follow up for N/V, gastric mass s/p EGD this am showing gastric outlet obstruction, hiatal hernia, erosive esophagitis Review of Systems Review of Systems: Yes all other systems are reviewed and are negative Constitutional Constitutional: Denies chills and Denies fever(s) Cardiovascular Cardiovascular: Denies chest pain Gastrointestinal Gastrointestinal: Denies abdominal pain Physical Exam Vital Signs: Vital Signs: Last Vital Signs Temp 98.4 F 04/28/24 15:14 Pulse 107 H 04/28/24 15:32 Resp 18 04/28/24 15:32 BP 106/63 04/28/24 15:14 Pulse Ox 94 04/28/24 15:14 O2 Del Method Nasal Cannula 04/28/24 15:14 O2 Flow Rate 2 04/28/24 15:14 BMI result Body Mass Index 29.5 Const: General: awake Nutritional Appearance: average body habitus Resp: Effort & Inspection: normal respiratory effort, able to speak in complete sentences, no respiratory distress and no use of accessory muscles Cardio: Rate: tachycardic GI: Inspection: No distended Palpation (GI): Soft to palpation and nontender Neuro: Other: grossly nonfocal Objective Data Active Medications Acetaminophen (Acetaminophen 325 Mg Tablet) 650 mg PO Q6H PRN PRN Reason: Pain, Mild 1-3,fever,headache Albuterol Sulfate (Albuterol Sulfate 90 Mcg 8 Gm Inhaler) 2 puff INHALE Q6H PRN PRN Reason: Wheezing Albuterol Sulfate (Albuterol Sulfate (0.083%) 2.5 Mg/3 Ml Vial.Neb) 2.5 mg INHALE ONCE PRN PRN Reason: Shortness of Breath/Wheezing Last Admin: 04/28/24 08:13 Dose: 2.5 mg Documented By: LEONDIAS Albuterol/Ipratropium (Albuterol/Iprat 2.5/0.5mg 3 Ml Ampul.Neb) 3 ml INHALE RQ6H WHILE AWAKE [facility] Last Admin: 04/28/24 15:30 Dose: 3 ml Documented By: ABEL Atorvastatin Calcium (Atorvastatin Calcium 20 Mg Tablet) 20 mg PO DAILY [facility] Last Admin: 04/28/24 10:47 Dose: 20 mg Documented By: ANGELIA Benztropine Mesylate (Benztropine Mesylate 1 Mg Tablet) 1 mg PO BID [facility] Last Admin: 04/28/24 10:47 Dose: 1 mg Documented By: ANGELIA Calcium Carbonate (Calcium Carbonate 750 Mg Tab.Chew) 750 mg PO Q4H PRN PRN Reason: Heartburn Last Admin: 04/26/24 17:00 Dose: 750 mg Documented By: RAJ Calcium Carbonate/Cholecalciferol (Calcium + Vitamin D 250 Mg Tablet) 500 mg PO BIDWM [facility] Last Admin: 04/28/24 10:46 Dose: 500 mg Documented By: ANGELIA Finasteride (Finasteride 5 Mg Tablet) 5 mg PO DAILY [facility] Last Admin: 04/28/24 10:47 Dose: 5 mg Documented By: ANGELIA Fluticasone Propionate (Fluticasone Propionate Nasal 16 Gm [place]) 2 spray NOSTRIL-B DAILY [facility] Last Admin: 04/28/24 10:49 Dose: Not Given Documented By: ANGELIA Non-Admin Reason: Patient Refused Fluticasone/Vilanterol (Fluticasone/Vilanterol 200/25 Blst.W.Dev) 1 puff INHALE RDAILY [facility] Last Admin: 04/28/24 07:47 Dose: Not Given Documented By: ABEL Non-Admin Reason: Off Unit: Surgery Gabapentin (Gabapentin 300 Mg Capsule) 300 mg PO TID PRN PRN Reason: nerve pain Piperacillin Sod/Tazobactam (Sod 4.5 gm/ Sodium Chloride) 100 mls @ 200 mls/hr IV Q6H [facility] Last Infusion: 04/28/24 11:31 Dose: Infused Documented By: ANGELIA Loperamide HCl (Loperamide Hcl 2 Mg Capsule) 2 mg PO Q4H PRN PRN Reason: Diarrhea Magnesium Hydroxide (Milk Of Magnesia 30 Ml Oral.Susp) 30 ml PO DAILY PRN PRN Reason: Constipation Melatonin (Melatonin 3 Mg Tablet) 9 mg PO BEDTIME [facility] Last Admin: 04/27/24 19:49 Dose: 9 mg Documented By: ODRISChika Morphine Sulfate (Morphine Sulfate 4 Mg/Ml Cartridge) 3 mg IVPUSH Q4H PRN; Protocol PRN Reason: Pain, Severe (Pain Scale 7-10) Last Admin: 04/25/24 22:29 Dose: 3 mg Documented By: LINDA Naloxone HCl (Naloxone Hcl 0.4 Mg/Ml Vial) 0.04 mg IVPUSH Q5M PRN PRN Reason: Excessive sedation or RR < 8 Olanzapine (Olanzapine 10 Mg Tablet) 20 mg PO BEDTIME [facility] Last Admin: 04/27/24 19:50 Dose: 20 mg Documented By: JEWELS Ondansetron HCl (Ondansetron Hcl 4 Mg/2 Ml Vial) 4 mg IVPUSH Q8H PRN PRN Reason: Nausea and Vomiting Last Admin: 04/27/24 10:29 Dose: 4 mg Documented By: CHLOE Pantoprazole Sodium (Pantoprazole Sodium 40 Mg/10 Ml Vial) 40 mg IVPUSH BID@0630,1630 [facility] Last Admin: 04/28/24 05:26 Dose: 40 mg Documented By: JEWELS Prednisolone Acetate (Prednisolone Acetate 1 % Oph Susp 5 Ml Drpbtl) 1 drop EYE-LEFT DAILY [facility] Last Admin: 04/28/24 10:48 Dose: 1 drop Documented By: ANGELIA Sodium Chloride (0.9 % Sodium Chloride Flush 3 Ml Syringe) 3 ml IVFLUSH QSHIFT [facility] Last Admin: 04/28/24 09:22 Dose: 3 ml Documented By: ANGELIA Sucralfate (Sucralfate Oral Suspension 1 Gm/10 Ml Oral.Susp) 1 gm PO QIDACHS [facility] Tamsulosin HCl (Tamsulosin Hcl 0.4 Mg Capsule) 0.8 mg PO DAILY [facility] Last Admin: 04/28/24 10:47 Dose: 0.8 mg Documented By: ANGELIA Vitamin D (Cholecalciferol (Vitamin D3) 25 Mcg Tablet) 50 mcg PO DAILY [facility] Last Admin: 04/28/24 10:47 Dose: 50 mcg Documented By: ANGELIA Labs 04/27/24 05:16 04/28/24 05:24 Labs: Laboratory Results - last 24 hr 04/28/24 04/28/24 05:24 08:13 Anion Gap 10 L Estim Creat Clear Calc 118.6 Estimated GFR > 60 POC Glucose 104 Random Glucose 95 Calcium 7.8 L Magnesium 1.2 L* Assessment and Plan (1) Hypomagnesemia: Status: Acute (2) Nausea & vomiting: Status: Acute (3) Gastric cancer: Status: Acute Plan This is a 74-year-old gentleman with past medical history significant for hypertension, diabetes, coronary artery disease, type 4 paraesophageal hernia, bipolar disorder, hyperlipidemia, BPH, tremors, 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 Nausea, vomiting and epigastric pain/burning Multifactorial likely due to chemotherapy secondary to underlying epigastric tumor and hiatal hernia Recent upper endoscopy 12/14 showed mildly tortuous esophagus without stricture, ring, esophagitis or Goldstein's, it showed gastritis and large ulcerated gastric antral mass Case discussed with Dr. Shah she recommend upper endoscopy to look for tumor response to chemotherapy Case discussed with Dr. Dorman s/p EGD 04/28 gastric outlet obstruction, hiatal hernia, erosive esophagitis - plan for high dose PPI with carafate, soft diet with small meals, eat upright Shortness of breaths/wheeze question aspiration pneumonia Denies fever, no chills;CT chest showing left lower lobe consolidation continue IV Zosyn 4.5 g q.6 hours monitor closely for side effect of redness of eye to pcn Cough syrup as needed Recommend small frequent meals/keep upright position after each meal due to large hiatal hernia wean o2 as tolerated Acute on chronic normocytic anemia H&H dropped but above transfusion threshold Likely due to chemotherapy and GI bleed, have dark colored stools, no melena or hematochezia Follow CBC, transfuse as needed, stool guaiac pending H/H stable Pancytopenia due to chemotherapy, stable CBC Acute Hypokalemia repleted and normalized Acute hypo magnesemia/acute hypocalcemia likely due to decreased by mouth intake will replace and follow labs. Mild intermittent asthma No acute exacerbation continue home inhalers, coarse breath sounds with occasional wheeze likely due to aspiration hold steroids Schizoaffective disorder Continue olanzapine BPH continue Flomax and finasteride Hypertension initially Coreg on hold for soft bp, pt with some tachycardia, will resume at reduced dose and monitor closely Hyperlipidemia continue statin DVT prophylaxis compression boots, due to low platelet count and prior history of heme-positive stools Full code In my clinical judgment patient requires continued inpatient hospitalization for management of intractable nausea vomiting abdominal pain decreased by mouth intake and electrolyte abnormality , aspiration pneumonia on IV antibiotic Quality Stroke Does the patient have a stroke diagnosis?: No VTE Prior VTE?: No VTE Risk Level:: Medical - moderate - high VTE Device Contraindication: Treatment Not Indicated VTE Drug Contraindication: N/A - Med Ordered
[2024-04-28] MEDS: ondansetron HCL 4 MG/2 ML VIAL IVPUSH (19:47)
[2024-04-28] MEDS: carvediloL 3.125 MG TABLET PO (20:46)
[2024-04-28] MEDS: Melatonin 3 MG TABLET 9 MG PO (20:47)
[2024-04-28] MEDS: OLANZapine 10 MG TABLET 20 MG PO (20:47)
[2024-04-29] VITALS (8 sets, daily range): BP systolic 96–110; BP diastolic 54–65; PULSE 90–117; RESP 18–20; TEMP 36.9–37.4; O2SAT 91–93
[2024-04-29] MEDS: Piperacillin Sodium/Tazobactam 4.5 GM in 0.9 % Sodium Chloride 100 ML IV ×4 (05:02→22:01)
[2024-04-29] MEDS: Omeprazole 40 MG CAPSULE.DR PO ×2 (05:37→16:45)
[2024-04-29 06:15] LABS: Magnesium 1.6 mg/dL (1.6-2.6)
[2024-04-29] MEDS: Albuterol/Iprat 2.5/0.5MG 3 ML AMPUL.NEB INHALE ×3 (07:53→19:52)
[2024-04-29] MEDS: Fluticasone/Vilanterol 200/25 BLST.W.DEV 1 PUFF INHALE (07:53)
[2024-04-29] MEDS: Calcium + Vitamin D 250 MG TABLET 500 MG PO ×2 (08:14→16:45)
[2024-04-29] MEDS: Benztropine Mesylate 1 MG TABLET PO ×2 (08:14→20:03)
[2024-04-29] MEDS: Cholecalciferol (Vitamin D3) 25 MCG TABLET 50 MCG PO (08:14)
[2024-04-29] MEDS: carvediloL 3.125 MG TABLET PO ×2 (08:14→20:04)
[2024-04-29] MEDS: Finasteride 5 MG TABLET PO (08:14)
[2024-04-29] MEDS: Tamsulosin HCL 0.4 MG CAPSULE 0.8 MG PO (08:14)
[2024-04-29] MEDS: Atorvastatin Calcium 20 MG TABLET PO (08:14)
[2024-04-29] MEDS: Sucralfate Oral Suspension 1 GM/10 ML ORAL.SUSP PO ×4 (08:15→20:03)
[2024-04-29] MEDS: 0.9 % Sodium Chloride Flush 3 ML SYRINGE IVFLUSH ×3 (08:19→23:53)
[2024-04-29] MEDS: Fluticasone Propionate Nasal 16 GM SPRAY 2 SPRAY NOSTRIL-B (10:31)
[2024-04-29] MEDS: prednisoLONE Acetate 1 % Oph Susp 5 ML DRPBTL 1 DROP EYE-LEFT (10:31)
--- NOTE | 2024-04-29 10:35 | P.PNGI_ITS ---
Subjective Subjective Date of Service: 04/29/24 Interval History: feels breathing is better vomited a little today no abdominal pain no constipation Critical Care Time (minutes): 0 Physical Exam 2 Vital Signs: Vital Signs: Last Vital Signs Temp 99.3 F 04/29/24 07:13 Pulse 105 H 04/29/24 07:55 Resp 20 04/29/24 07:55 BP 110/65 04/29/24 07:13 Pulse Ox 93 04/29/24 08:15 O2 Del Method Nasal Cannula 04/29/24 08:15 O2 Flow Rate 3 04/29/24 07:13 Oxygen Flow Rate 2 04/29/24 08:15 BMI result Body Mass Index 29.5 EXAM: GENERAL: The patient is well developed and nontoxic. VITAL SIGNS:see workflow HEENT: Nonicteric sclerae, PERRLA, EOMI. Oropharynx clear. Moist mucous membranes. Conjunctivae appear well perfused. No thyroid mass. CHEST: Chest wall is nontender. HEART: Regular rate and rhythm without murmurs. LUNGS: Clear to auscultation bilaterally. ABDOMEN: Soft, positive bowel sounds, nontender, no organomegaly.no flank tenderness SKIN: No rash, no excessive bruising, petechiae, or purpura. NEUROLOGIC: Cranial nerves II-XII intact without motor/sensory deficit. Psych: normal affect Objective Data Labs 04/27/24 05:16 04/28/24 05:24 Labs: Laboratory Results - last 24 hr 04/29/24 05:31 Magnesium 1.6 Procedures Date of Service Date of Service: 04/29/24 Progress Note: A&P Assessment and plan (1) Nausea & vomiting: Status: Acute Assessment and Plan: 1/ N/V from partial gastric outlet obstruction and large hiatal hernia PLAN: 1. reminded to remain upright when eating, chew food fully, soft diet 2. high dose PPI 3. if ongoing issues might need J tube Time Spent With Patient Time: Total time managing care of this patient today ____ minutes. Quality Stroke Does the patient have a stroke diagnosis?: No VTE Prior VTE?: No VTE Risk Level:: Medical - moderate - high VTE Device Contraindication: Treatment Not Indicated VTE Drug Contraindication: N/A - Med Ordered
[2024-04-29 12:43] LABS: Hematocrit 28.9 % (42.0-52.0); Mean Corpuscular HGB Conc 31.1 g/dl (31.0-36.0); Mean Corpuscular Hemoglobin 27.1 pg (27.0-33.0); Platelet Count 130 X10*3/uL (160-400); Red Blood Count 3.32 X10*6/uL (4.60-5.80); Red Cell Distribution Width 17.3 % (11.0-16.0); White Blood Count 5.3 X10*3/uL (4.8-10.8)
[2024-04-29 12:59] LABS: Anion Gap 11 (12-20); Blood Urea Nitrogen 9 mg/dL (9-16); Calcium 7.5 mg/dL (8.4-10.2); Carbon Dioxide 28 mmol/L (22-29); Chloride 104 mmol/L (96-108); Creatinine Clr Calc Pharmacy 125.5; Estimated Glomerular Filt Rate > 60; Glucose Random 121 mg/dL (60-115); Potassium 3.2 mmol/L (3.3-5.1); Sodium 140 mmol/L (135-145)
--- NOTE | 2024-04-29 14:06 | P.PNIM_ITS ---
Subjective Subjective Date of Service: 04/29/24 Interval History: seen and examined this morning follow up for N/V, pGastric outlet obstruction; aspiration pneumonia feels well, has some phlegm getting stuck in his throat which triggers small amount of vomiting attempted to wean off oxygen last night, o2 dropped into 80s. Denies shortness of breath Review of Systems Review of Systems: Yes all other systems are reviewed and are negative Constitutional Constitutional: Denies chills and Denies fever(s) Cardiovascular Cardiovascular: Denies chest pain, Denies palpitations and Denies dyspnea Respiratory Respiratory: Denies dyspnea Endocrine Endocrine: Denies palpitations Physical Exam 2 Vital Signs: Vital Signs: Last Vital Signs Temp 99.3 F 04/29/24 07:13 Pulse 90 04/29/24 13:07 Resp 20 04/29/24 13:07 BP 110/65 04/29/24 07:13 Pulse Ox 93 04/29/24 08:15 O2 Del Method Nasal Cannula 04/29/24 08:15 O2 Flow Rate 3 04/29/24 07:13 Oxygen Flow Rate 2 04/29/24 08:15 BMI result Body Mass Index 29.5 Const: General: awake Nutritional Appearance: average body habitus Resp: Effort & Inspection: normal respiratory effort, able to speak in complete sentences, no respiratory distress and no use of accessory muscles Cardio: Rate: tachycardic GI: Inspection: No distended Palpation (GI): Soft to palpation and nontender Neuro: Other: grossly nonfocal Objective Data Active Medications Acetaminophen (Acetaminophen 325 Mg Tablet) 650 mg PO Q6H PRN PRN Reason: Pain, Mild 1-3,fever,headache Albuterol Sulfate (Albuterol Sulfate 90 Mcg 8 Gm Inhaler) 2 puff INHALE Q6H PRN PRN Reason: Wheezing Albuterol Sulfate (Albuterol Sulfate (0.083%) 2.5 Mg/3 Ml Vial.Neb) 2.5 mg INHALE ONCE PRN PRN Reason: Shortness of Breath/Wheezing Last Admin: 04/28/24 08:13 Dose: 2.5 mg Documented By: LEONIDAS Albuterol/Ipratropium (Albuterol/Iprat 2.5/0.5mg 3 Ml Ampul.Neb) 3 ml INHALE RQ6H WHILE AWAKE [facility] Last Admin: 04/29/24 13:05 Dose: 3 ml Documented By: KENYON Atorvastatin Calcium (Atorvastatin Calcium 20 Mg Tablet) 20 mg PO DAILY [facility] Last Admin: 04/29/24 08:14 Dose: 20 mg Documented By: ROZINA Benztropine Mesylate (Benztropine Mesylate 1 Mg Tablet) 1 mg PO BID [facility] Last Admin: 04/29/24 08:14 Dose: 1 mg Documented By: ROZINA Calcium Carbonate (Calcium Carbonate 750 Mg Tab.Chew) 750 mg PO Q4H PRN PRN Reason: Heartburn Last Admin: 04/26/24 17:00 Dose: 750 mg Documented By: RAJ Calcium Carbonate/Cholecalciferol (Calcium + Vitamin D 250 Mg Tablet) 500 mg PO BIDWM [facility] Last Admin: 04/29/24 08:14 Dose: 500 mg Documented By: ROZINA Carvedilol (Carvedilol 3.125 Mg Tablet) 3.125 mg PO BID [facility]; Protocol Last Admin: 04/29/24 08:14 Dose: 3.125 mg Documented By: ROZINA Finasteride (Finasteride 5 Mg Tablet) 5 mg PO DAILY [facility] Last Admin: 04/29/24 08:14 Dose: 5 mg Documented By: ROZINA Fluticasone Propionate (Fluticasone Propionate Nasal 16 Gm [place]) 2 spray NOSTRIL-B DAILY [facility] Last Admin: 04/29/24 10:31 Dose: 2 spray Documented By: ROZINA Fluticasone/Vilanterol (Fluticasone/Vilanterol 200/25 Blst.W.Dev) 1 puff INHALE RDAILY [facility] Last Admin: 04/29/24 07:53 Dose: 1 puff Documented By: ABEL Gabapentin (Gabapentin 300 Mg Capsule) 300 mg PO TID PRN PRN Reason: nerve pain Guaifenesin/Dextromethorphan (Guaifenesin Dm 200/20/10 Ml 10 Ml Syrup) 10 ml PO Q6H PRN PRN Reason: Cough Piperacillin Sod/Tazobactam (Sod 4.5 gm/ Sodium Chloride) 100 mls @ 200 mls/hr IV Q6H [facility] Last Infusion: 04/29/24 11:33 Dose: Infused Documented By: ROZINA Loperamide HCl (Loperamide Hcl 2 Mg Capsule) 2 mg PO Q4H PRN PRN Reason: Diarrhea Magnesium Hydroxide (Milk Of Magnesia 30 Ml Oral.Susp) 30 ml PO DAILY PRN PRN Reason: Constipation Melatonin (Melatonin 3 Mg Tablet) 9 mg PO BEDTIME [facility] Last Admin: 04/28/24 20:47 Dose: 9 mg Documented By: JEWELS Morphine Sulfate (Morphine Sulfate 4 Mg/Ml Cartridge) 3 mg IVPUSH Q4H PRN; Protocol PRN Reason: Pain, Severe (Pain Scale 7-10) Last Admin: 04/25/24 22:29 Dose: 3 mg Documented By: LINDA Naloxone HCl (Naloxone Hcl 0.4 Mg/Ml Vial) 0.04 mg IVPUSH Q5M PRN PRN Reason: Excessive sedation or RR < 8 Olanzapine (Olanzapine 10 Mg Tablet) 20 mg PO BEDTIME [facility] Last Admin: 04/28/24 20:47 Dose: 20 mg Documented By: JEWELS Omeprazole (Omeprazole 40 Mg Capsule.Dr) 40 mg PO BID@0630,1630 [facility] Last Admin: 04/29/24 05:37 Dose: 40 mg Documented By: JEWELS Ondansetron HCl (Ondansetron Hcl 4 Mg/2 Ml Vial) 4 mg IVPUSH Q8H PRN PRN Reason: Nausea and Vomiting Last Admin: 04/28/24 19:47 Dose: 4 mg Documented By: JEWELS Potassium Chloride (Potassium Chloride Packet 20 Meq Packet) 40 meq PO ONCE ONE Stop: 04/29/24 14:03 Prednisolone Acetate (Prednisolone Acetate 1 % Oph Susp 5 Ml Drpbtl) 1 drop EYE-LEFT DAILY [facility] Last Admin: 04/29/24 10:31 Dose: 1 drop Documented By: ROZINA Sodium Chloride (0.9 % Sodium Chloride Flush 3 Ml Syringe) 3 ml IVFLUSH QSHIFT [facility] Last Admin: 04/29/24 08:19 Dose: 3 ml Documented By: ROZINA Sucralfate (Sucralfate Oral Suspension 1 Gm/10 Ml Oral.Susp) 1 gm PO QIDACHS [facility] Last Admin: 04/29/24 11:52 Dose: 1 gm Documented By: ROZINA Tamsulosin HCl (Tamsulosin Hcl 0.4 Mg Capsule) 0.8 mg PO DAILY [facility] Last Admin: 04/29/24 08:14 Dose: 0.8 mg Documented By: ROZINA Vitamin D (Cholecalciferol (Vitamin D3) 25 Mcg Tablet) 50 mcg PO DAILY [facility] Last Admin: 04/29/24 08:14 Dose: 50 mcg Documented By: ROZINA Labs 04/29/24 12:00 04/29/24 12:00 Labs: Laboratory Results - last 24 hr 04/29/24 04/29/24 05:31 12:00 MCV 87.0 MCH 27.1 MCHC 31.1 RDW 17.3 H Plt Count 130 L MPV 10.0 Absolute Nucleated RBC 0.000 Nucleated RBC % (auto) 0.0 Anion Gap 11 L Estim Creat Clear Calc 125.5 Estimated GFR > 60 Random Glucose 121 H Calcium 7.5 L Magnesium 1.6 Assessment and Plan (1) Gastric cancer: Status: Acute Plan This is a 74-year-old gentleman with past medical history significant for hypertension, diabetes, coronary artery disease, type 4 paraesophageal hernia, bipolar disorder, hyperlipidemia, BPH, tremors, 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 Nausea, vomiting and epigastric pain/burning Multifactorial likely due to chemotherapy secondary to underlying epigastric tumor and hiatal hernia Recent upper endoscopy 12/14 showed mildly tortuous esophagus without stricture, ring, esophagitis or Goldstien's, it showed gastritis and large ulcerated gastric antral mass Case discussed with Dr. Shah she recommend upper endoscopy to look for tumor response to chemotherapy Case discussed with Dr. Dorman s/p EGD 04/28 gastric outlet obstruction, hiatal hernia, erosive esophagitis - plan for high dose PPI with carafate, soft diet with small meals, eat upright may need j tube in the future if worsens Shortness of breaths/wheeze question aspiration pneumonia Denies fever, no chills;CT chest showing left lower lobe consolidation continue IV Zosyn Cough syrup as needed Recommend small frequent meals/keep upright position after each meal due to large hiatal hernia wean o2 as tolerated repeat cxr showing vascular congestion overall Is&Os + will give one dose of lasix and assess for effect Acute on chronic normocytic anemia H&H dropped but above transfusion threshold Likely due to chemotherapy and GI bleed, have dark colored stools, no melena or hematochezia Follow CBC, transfuse as needed, stool guaiac pending H/H stable Pancytopenia due to chemotherapy, stable CBC Acute Hypokalemia will replace and follow Acute hypo magnesemia/acute hypocalcemia likely due to decreased by mouth intake will replace and follow labs. Mild intermittent asthma No acute exacerbation continue home inhalers, coarse breath sounds with occasional wheeze likely due to aspiration hold steroids Schizoaffective disorder Continue olanzapine BPH continue Flomax and finasteride Hypertension initially Coreg on hold for soft bp, pt with some tachycardia, will resume at reduced dose and monitor closely Hyperlipidemia continue statin DVT prophylaxis compression boots, due to low platelet count and prior history of heme-positive stools Full code In my clinical judgment patient requires continued inpatient hospitalization for management of intractable nausea vomiting abdominal pain decreased by mouth intake and electrolyte abnormality , aspiration pneumonia on IV antibiotic Quality Stroke Does the patient have a stroke diagnosis?: No VTE Prior VTE?: No VTE Risk Level:: Medical - moderate - high VTE Device Contraindication: Treatment Not Indicated VTE Drug Contraindication: N/A - Med Ordered
--- NOTE | 2024-04-29 14:17 | HO.POSTANES ---
Post Anesthesia Evaluation Post Anesthesia Evaluation Date of Service: 04/29/24 Vital Signs: Vital Signs Temp Pulse Resp BP Pulse Ox O2 Del Method O2 Flow Rate 04/29/24 13:07 90 20 04/29/24 08:15 93 Nasal Cannula 04/29/24 07:55 105 H 20 04/29/24 07:13 99.3 F 107 H 20 110/65 93 Nasal Cannula 3 04/29/24 03:10 98.4 F 114 H 18 101/54 L 93 Nasal Cannula 3 Anesthesia: Monitored Mental Status: Awake Pain Control: Satisfactory Nausea/Vomiting: None Hydration: Adequate Anesthesia-Related Issues: No Anes. Related Issues
[2024-04-29] MEDS: Furosemide 20 MG/2 ML VIAL IVPUSH (14:25)
[2024-04-29] MEDS: Potassium Chloride Packet 20 MEQ PACKET 40 MEQ PO (14:26)
--- NOTE | 2024-04-29 15:04 | MHC.CM.PN ---
PER ROUNDS PT NOT MEDICALLY READY FOR DC PT IS HYPOXIC,DC PLAN IS RETURN TO CARE HOME
--- NOTE | 2024-04-29 15:10 | MHC.CM.PN ---
PER ROUNDS PT NOT MEDICALLY READY FOR DC ,DC LPAN REMAINS HOME
[2024-04-29] MEDS: Melatonin 3 MG TABLET 9 MG PO (20:03)
[2024-04-29] MEDS: ondansetron HCL 4 MG/2 ML VIAL IVPUSH (20:36)
[2024-04-30] VITALS (12 sets, daily range): BP systolic 97–109; BP diastolic 51–64; PULSE 78–105; RESP 14–20; TEMP 36.5–37.4; O2SAT 89–97
[2024-04-30] MEDS: guaiFENesin DM 200/20/10 ML 10 ML SYRUP PO ×2 (00:51→23:10)
[2024-04-30] MEDS: Omeprazole 40 MG CAPSULE.DR PO ×2 (05:24→15:59)
[2024-04-30] MEDS: Piperacillin Sodium/Tazobactam 4.5 GM in 0.9 % Sodium Chloride 100 ML IV ×4 (05:24→22:26)
--- NOTE | 2024-04-30 07:00 | CA_ITS ---
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 There is mildly increased left ventricular wall thickness. The visually estimated ejection fraction is between 55-60%. - Mildly increased right ventricular cavity size. There is normal right ventricular systolic function. - The left atrium is mildly dilated. - Mild pulmonary hypertension is present. - There is mild dilatation of the ascending aorta measuring 3.80 cm. Findings Left Ventricle Normal left ventricular size and systolic function. There is mildly increased left ventricular wall thickness. The visually estimated ejection fraction is between 55-60%. There is no evidence of regional wall motion abnormalities. Diastolic function is indeterminate on the basis of available data. Right Ventricle Mildly increased right ventricular cavity size. There is normal right ventricular systolic function. Atria The left atrium is mildly dilated. The right atrium is likely dilated. Aortic Valve The aortic valve structure and function is likely normal. There is no aortic valve stenosis. There is no aortic valve regurgitation. Mitral Valve The mitral valve appears normal. There is no mitral valve regurgitation. There is no mitral valve stenosis. Pulmonic Valve The pulmonic valve is likely normal. There is no pulmonic valve regurgitation. Tricuspid Valve Normal tricuspid valve structure. There is no tricuspid valve regurgitation. The right ventricular systolic pressure is 43 mmHg. Normal right atrial pressure. Mild pulmonary hypertension is present. Great Vessels There is mild dilatation of the ascending aorta measuring 3.80 cm. Venous The inferior vena cava is normal in size and collapses greater than 50% with inspiration. Pericardium/Pleural There is no evidence of pericardial effusion. Prior Study Comparison Changes noted compared to prior study dated: 01/21/2021. Mild dilation of aorta. Mild RV dilation. Measurements 2D Linear Measurements IVSd: 1.07 0.6-0.9/0.6-1.0 cm LVIDd: 2.72 3.9-5.3/4.2-5.9 cm LVIDd Index: 1.45 2.4-3.2/2.2-3.1 cm/m2 LVIDs: 2.12 2.0-3.6 cm LVPWd: 1.13 0.7-1.1 cm Ao Root: 3.60 2.1-3.5 cm LA Diam: 1.70 2.7-3.8/3.0-4.0 cm LAIDs Index: 0.90 1.5-2.3 cm/m2 LV Mass: 102.93 67-162/88-224 g LV Mass Index: 54.75 43-95/49-115 g/m2 LVOT Diam: 2.10 3.0+(-)1.3 cm 2D Systolic Function EF 4C: 53.50 >55% EF 2C: 54.60 >55% EF BiP: 52.40 >55% Mitral Valve MV Pk E: 0.84 MV PK A: 1.14 MV Decel Time: 120.00 E/A: 0.70 E'Lateral: 7.72 E'Medial: 5.22 E/E' Med: 16.10 E/E' Lat: 10.90 PHT: 35.00 MVA PHT: 6.29 Decel [place]: 6.99 Aortic Valve AoV Pk Jose: 1.92 AoV Mn Jose: 1.27 AoV VTI: 0.31 AoV Pk Grad: 15.00 Aov Mn Grad: 8.00 YOMI Cont.VTI: 2.16 LVOT LVOT Pk Jose: 1.17 LVOT Mn Jose: 0.82 LVOT VTI: 0.19 LVOT Pk Grad: 5.00 LVOT Mn Grad: 3.00 LVOT Diam: 2.10 LVOT Area: 3.46 Diastolic Function MV Pk E: 0.84 MV Pk A: 1.14 E/A: 0.70 E'Medial: 5.22 E/E' Med: 16.10 E' Laterial: 7.72 E/E' Lat: 10.90 Right Ventricle TAPSE (mm): 30.00 TVS' Jose: 16.00 Tricuspid Valve TR Pk Jose: 3.15 TR Pk Grad: 40.00 RA Press: 3.00 RVSP: 43.00 Great Vessels Aorta Ao Root-2D: 3.60 2.0-3.7 cm Ao Asc: 3.80 2.1-3.4 cm Pulmonary Valve PV Pk Jose: 1.18 Peak PV Grad: 6.00 Updated in Other Vendor System with Status of Final Mike Olson MD electronically signed on 05/01/2024 10:27:29 AM with status of Final
[2024-04-30] MEDS: Albuterol/Iprat 2.5/0.5MG 3 ML AMPUL.NEB INHALE ×4 (07:39→19:38)
[2024-04-30] MEDS: 0.9 % Sodium Chloride Flush 3 ML SYRINGE IVFLUSH ×2 (07:45→15:01)
[2024-04-30] MEDS: Sucralfate Oral Suspension 1 GM/10 ML ORAL.SUSP PO ×4 (07:46→19:51)
[2024-04-30] MEDS: Benztropine Mesylate 1 MG TABLET PO ×2 (07:46→19:51)
[2024-04-30] MEDS: Finasteride 5 MG TABLET PO (07:46)
[2024-04-30] MEDS: Cholecalciferol (Vitamin D3) 25 MCG TABLET 50 MCG PO (07:46)
[2024-04-30] MEDS: Tamsulosin HCL 0.4 MG CAPSULE 0.8 MG PO (07:46)
[2024-04-30] MEDS: Atorvastatin Calcium 20 MG TABLET PO (07:46)
[2024-04-30] MEDS: Fluticasone/Vilanterol 200/25 BLST.W.DEV 1 PUFF INHALE (07:46)
[2024-04-30] MEDS: Calcium + Vitamin D 250 MG TABLET 500 MG PO ×2 (07:46→15:58)
[2024-04-30] MEDS: Fluticasone Propionate Nasal 16 GM SPRAY 2 SPRAY NOSTRIL-B (07:47)
[2024-04-30] MEDS: prednisoLONE Acetate 1 % Oph Susp 5 ML DRPBTL 1 DROP EYE-LEFT (07:47)
--- NOTE | 2024-04-30 07:58 | PC.NURSE ---
Sat low on 3 l of oxygen ,increased to 4L via oxi mask.updraft given per resp,repositioned to upright position,sat 90% on 4 L at present,non prod cough,SOB at rest,lungs sounds rhonhi and exp wheezes bilateraly,SHERLY Leonardo notified
[2024-04-30 08:25] LABS: Anion Gap 10 (12-20); Blood Urea Nitrogen 8 mg/dL (9-16); Calcium 7.6 mg/dL (8.4-10.2); Carbon Dioxide 31 mmol/L (22-29); Chloride 104 mmol/L (96-108); Creatinine Clr Calc Pharmacy 141.8; Estimated Glomerular Filt Rate > 60; Glucose Random 111 mg/dL (60-115); Potassium 3.4 mmol/L (3.3-5.1); Sodium 142 mmol/L (135-145)
--- NOTE | 2024-04-30 08:28 | PC.NURSE ---
Coreg held per SHERLY duncan
[2024-04-30 08:32] LABS: B Type Natriuretic Peptide 106 pg/mL (<100)
[2024-04-30] MEDS: Furosemide 20 MG/2 ML VIAL IVPUSH (08:33)
[2024-04-30] MEDS: Albumin Human 25 % 100 ML IV ×3 (09:17→19:52)
--- NOTE | 2024-04-30 09:24 | PC.NURSE ---
Clarified Albumin dose with pharmacist ,no 100 ml available
[2024-04-30 09:55] LABS: Albumin Level 2.5 g/dL (3.5-5.0)
[2024-04-30 10:09] LABS: Adenovirus PCR Not Detected (Not Detect.); Bordetella parapertussis PCR Not Detected (Not Detect.); Bordetella pertussis PCR Not Detected (Not Detect.); Chlamydia pneumoniae PCR Not Detected (Not Detect.); Coronavirus 229E PCR Not Detected (Not Detect.); Coronavirus HKU1 PCR Not Detected (Not Detect.); Coronavirus NL63 PCR Not Detected (Not Detect.); Coronavirus OC43 PCR Not Detected (Not Detect.); Human metapneumovirus PCR Not Detected (Not Detect.); Influenza A PCR Not Detected (Not Detect.); Influenza B PCR Not Detected (Not Detect.); Mycoplasma pneumoniae PCR Not Detected (Not Detect.); Parainfluenza 1 PCR Not Detected (Not Detect.); Parainfluenza 2 PCR Not Detected (Not Detect.); Parainfluenza 3 PCR Not Detected (Not Detect.); Parainfluenza 4 PCR Not Detected (Not Detect.); RSV PCR Not Detected (Not Detect.); Rhino/Enterovirus PCR Not Detected (Not Detect.)
--- NOTE | 2024-04-30 10:24 | P.PNIM_ITS ---
Subjective Subjective Date of Service: 04/30/24 Interval History: seen and examined this morning follow up for pneumonia, abdominal pain, gastric mass increased o2 demands to 4L this am reports productive cough Review of Systems Review of Systems: Yes all other systems are reviewed and are negative Constitutional Constitutional: Denies chills and Denies fever(s) Respiratory Respiratory: Reports cough Gastrointestinal Gastrointestinal: Denies abdominal pain, Denies nausea and Reports vomiting Physical Exam 2 Vital Signs: Vital Signs: Last Vital Signs Temp 97.7 F 04/30/24 07:06 Pulse 101 H 04/30/24 07:40 Resp 18 04/30/24 07:40 BP 99/59 L 04/30/24 08:10 Pulse Ox 91 L 04/30/24 08:10 O2 Del Method Oxymask 04/30/24 08:10 O2 Flow Rate 4 04/30/24 08:10 Oxygen Flow Rate 4 04/30/24 07:58 BMI result Body Mass Index 29.5 Const: General: alert and awake Nutritional Appearance: overweight O rientation/consciousness: patient oriented x3 Resp: Other: b/l wheeze Effort & Inspection: no use of accessory muscles Cardio: Rate: regular rate GI: Inspection: No distended Palpation (GI): Soft to palpation Neuro: Other: grossly nonfocal General: patient oriented x3 Objective Data Active Medications Acetaminophen (Acetaminophen 325 Mg Tablet) 650 mg PO Q6H PRN PRN Reason: Pain, Mild 1-3,fever,headache Albuterol Sulfate (Albuterol Sulfate 90 Mcg 8 Gm Inhaler) 2 puff INHALE Q6H PRN PRN Reason: Wheezing Albuterol Sulfate (Albuterol Sulfate (0.083%) 2.5 Mg/3 Ml Vial.Neb) 2.5 mg INHALE ONCE PRN PRN Reason: Shortness of Breath/Wheezing Last Admin: 04/28/24 08:13 Dose: 2.5 mg Documented By: LEONIDAS Albuterol/Ipratropium (Albuterol/Iprat 2.5/0.5mg 3 Ml Ampul.Neb) 3 ml INHALE RQ4H WHILE AWAKE YAJAIRA Atorvastatin Calcium (Atorvastatin Calcium 20 Mg Tablet) 20 mg PO DAILY YAJAIRA Last Admin: 04/30/24 07:46 Dose: 20 mg Documented By: NILAY Benztropine Mesylate (Benztropine Mesylate 1 Mg Tablet) 1 mg PO BID [facility] Last Admin: 04/30/24 07:46 Dose: 1 mg Documented By: NILAY Calcium Carbonate (Calcium Carbonate 750 Mg Tab.Chew) 750 mg PO Q4H PRN PRN Reason: Heartburn Last Admin: 04/26/24 17:00 Dose: 750 mg Documented By: RAJ Calcium Carbonate/Cholecalciferol (Calcium + Vitamin D 250 Mg Tablet) 500 mg PO BIDWM [facility] Last Admin: 04/30/24 07:46 Dose: 500 mg Documented By: NILAY Carvedilol (Carvedilol 3.125 Mg Tablet) 3.125 mg PO BID [facility]; Protocol Last Admin: 04/29/24 20:04 Dose: 3.125 mg Finasteride (Finasteride 5 Mg Tablet) 5 mg PO DAILY [facility] Last Admin: 04/30/24 07:46 Dose: 5 mg Documented By: NILAY Fluticasone Propionate (Fluticasone Propionate Nasal 16 Gm [place]) 2 spray NOSTRIL-B DAILY [facility] Last Admin: 04/30/24 07:47 Dose: 2 spray Documented By: NILAY Fluticasone/Vilanterol (Fluticasone/Vilanterol 200/25 Blst.W.Dev) 1 puff INHALE RDAILY [facility] Last Admin: 04/30/24 07:46 Dose: 1 puff Documented By: BRITTNEY Gabapentin (Gabapentin 300 Mg Capsule) 300 mg PO TID PRN PRN Reason: nerve pain Guaifenesin/Dextromethorphan (Guaifenesin Dm 200/20/10 Ml 10 Ml Syrup) 10 ml PO Q6H PRN PRN Reason: Cough Last Admin: 04/30/24 00:51 Dose: 10 ml Documented By: MONA Piperacillin Sod/Tazobactam (Sod 4.5 gm/ Sodium Chloride) 100 mls @ 200 mls/hr IV Q6H [facility] Last Admin: 04/30/24 10:20 Dose: 200 mls/hr Documented By: NILAY Albumin Human (Kedbumin 25 %) 100 mls @ 100 mls/hr IV Q6H [facility] Stop: 05/01/24 03:44 Last Infusion: 04/30/24 10:21 Dose: Infused Documented By: NILAY Loperamide HCl (Loperamide Hcl 2 Mg Capsule) 2 mg PO Q4H PRN PRN Reason: Diarrhea Magnesium Hydroxide (Milk Of Magnesia 30 Ml Oral.Susp) 30 ml PO DAILY PRN PRN Reason: Constipation Melatonin (Melatonin 3 Mg Tablet) 9 mg PO BEDTIME [facility] Last Admin: 04/29/24 20:03 Dose: 9 mg Documented By: MONA Naloxone HCl (Naloxone Hcl 0.4 Mg/Ml Vial) 0.04 mg IVPUSH Q5M PRN PRN Reason: Excessive sedation or RR < 8 Olanzapine (Olanzapine 10 Mg Tablet) 20 mg PO BEDTIME [facility] Last Admin: 04/29/24 20:07 Dose: Not Given Documented By: MONA Non-Admin Reason: Patient Refused Omeprazole (Omeprazole 40 Mg Capsule.Dr) 40 mg PO BID@0630,1630 [facility] Last Admin: 04/30/24 05:24 Dose: 40 mg Documented By: MONA Ondansetron HCl (Ondansetron Hcl 4 Mg/2 Ml Vial) 4 mg IVPUSH Q8H PRN PRN Reason: Nausea and Vomiting Last Admin: 04/29/24 20:36 Dose: 4 mg Documented By: MONA Potassium Chloride (Potassium Chloride Packet 20 Meq Packet) 40 meq PO ONCE [facility] Prednisolone Acetate (Prednisolone Acetate 1 % Oph Susp 5 Ml Drpbtl) 1 drop EYE-LEFT DAILY [facility] Last Admin: 04/30/24 07:47 Dose: 1 drop Documented By: NILAY Sodium Chloride (0.9 % Sodium Chloride Flush 3 Ml Syringe) 3 ml IVFLUSH QSHIFT [facility] Last Admin: 04/30/24 07:45 Dose: 3 ml Documented By: NILAY Sucralfate (Sucralfate Oral Suspension 1 Gm/10 Ml Oral.Susp) 1 gm PO QIDACHS [facility] Last Admin: 04/30/24 07:46 Dose: 1 gm Documented By: NILAY Tamsulosin HCl (Tamsulosin Hcl 0.4 Mg Capsule) 0.8 mg PO DAILY [facility] Last Admin: 04/30/24 07:46 Dose: 0.8 mg Documented By: NILAY Vitamin D (Cholecalciferol (Vitamin D3) 25 Mcg Tablet) 50 mcg PO DAILY [facility] Last Admin: 04/30/24 07:46 Dose: 50 mcg Documented By: NILAY Labs 04/29/24 12:00 04/30/24 08:00 Labs: Laboratory Results - last 24 hr 04/29/24 04/30/24 12:00 08:00 MCV 87.0 MCH 27.1 MCHC 31.1 RDW 17.3 H Plt Count 130 L MPV 10.0 Absolute Nucleated RBC 0.000 Nucleated RBC % (auto) 0.0 Anion Gap 11 L 10 L Estim Creat Clear Calc 125.5 141.8 Estimated GFR > 60 > 60 Random Glucose 121 H 111 Calcium 7.5 L 7.6 L B-Natriuretic Peptide 106 H Albumin 2.5 L Assessment and Plan (1) Nausea & vomiting: Status: Acute (2) Gastric cancer: Status: Acute (3) Metastatic bone tumor: Status: Acute (4) Large hiatal hernia: Status: Acute Plan This is a 74-year-old gentleman with past medical history significant for hypertension, diabetes, coronary artery disease, type 4 paraesophageal hernia, bipolar disorder, hyperlipidemia, BPH, tremors, gastric tumor with bone Mets currently receiving chemotherapy was due for 8 cycle of FOLFOX plus nivolumab but noted to have decreased appetite, malaise, nausea vomiting epigastric pain therefore referred to [place] emergency room for further eval and treatment. Nausea, vomiting and epigastric pain Multifactorial likely due to chemotherapy secondary to underlying epigastric tumor and hiatal hernia Recent upper endoscopy 12/14 showed mildly tortuous esophagus without stricture, ring, esophagitis or Goldstein's, it showed gastritis and large ulcerated gastric antral mass Case discussed with Dr. Shah she recommend repeat upper endoscopy to look for tumor response to chemotherapy Case discussed with Dr. Dorman s/p EGD 04/28 gastric outlet obstruction, hiatal hernia, erosive esophagitis - plan for high dose PPI with carafate, soft diet with small meals, eat upright may need j tube in the future if worsens/doesn't tolerate po Acute respiratory failure with hypoxia Denies fever, no chills; CT chest showing left lower lobe consolidation, possible aspiration continue IV Zosyn Recommend small frequent meals/keep upright position after each meal due to large hiatal hernia repeat cxr 04/29 showing vascular congestion, treated with IV lasix increasing o2 demands 04/30 - repeat cxr, check BNP (old echo with diastolic dysfunction and overall positive several L on this admission) empiric low dose lasix RPP pending MRSA nasal swab has h/o underlying asthma, but hesistent to use steroids with esophagitis/gastric mass; will discuss with GI increase frequency of breathing treatments formal speech evaluation pending Acute on chronic normocytic anemia H&H dropped but above transfusion threshold Likely due to chemotherapy and GI bleed, have dark colored stools, no melena or hematochezia Follow CBC, transfuse as needed, stool guaiac pending H/H stable Pancytopenia due to chemotherapy, stable CBC Acute Hypokalemia improved follow BMP Acute hypo magnesemia/acute hypocalcemia likely due to decreased by mouth intake will replace and follow labs. Mild intermittent asthma No acute exacerbation continue home inhalers, coarse breath sounds with occasional wheeze likely due to aspiration hold steroids Schizoaffective disorder Continue olanzapine BPH continue Flomax and finasteride Hypertension initially Coreg on hold for soft bp, pt with some tachycardia, will resume at reduced dose and monitor closely Hyperlipidemia continue statin DVT prophylaxis compression boots, due to low platelet count and prior history of heme-positive stools Full code In my clinical judgment patient requires continued inpatient hospitalization for management of intractable nausea vomiting abdominal pain decreased by mouth intake and electrolyte abnormality , aspiration pneumonia on IV antibiotic Quality Stroke Does the patient have a stroke diagnosis?: No VTE Prior VTE?: No VTE Risk Level:: Medical - moderate - high VTE Device Contraindication: Treatment Not Indicated VTE Drug Contraindication: N/A - Med Ordered
[2024-04-30 10:30] LABS: SARS-CoV-2 PCR Not Detected (Not Detect.)
--- NOTE | 2024-04-30 11:28 | PM.CNCAR ---
History of Present Illness History of Present Illness Date of Service: 04/30/24 Requesting physician: Malissa Puri Chief complaint: intractable nausea vomiting and abdominal pain Narrative: [age] year gentleman with background history of diabetes, hypertension, coronary disease, hyperlipidemia, BPH, gastric tumor with bone Mets currently receiving FOLFOX presented with decreased appetite malaise nausea and vomiting. He had acute respiratory failure due to aspiration and left lower lobe consolidation. He is on antibiotics. We have been asked to see him for congestive heart failure. He is saying his breathing is stable currently. He is unable to lay flat because he feels more nauseous when he is laying down but denying any respiratory issues. No chest discomfort. Labs, EKG and imaging reviewed. [facility] Past Medical History Medical History Tremor Mild intermittent asthma Coronary artery disease Schizoaffective disorder HTN (hypertension) Heme + stool Family History Family History Unknown No problems noted. Mother Colon cancer Surgical History Surgical History History of esophagogastroduodenoscopy (EGD) Hx of colonoscopy Social History Social History Household Members: Other Household Members Other:: long-term Housing: House Housing Other:: retirement. Are you a primary home health care coordinator to a significant other at home: No Do you presently have visiting nurse or other home services: No Alcohol intake: never Patient Tobacco Use Status: Former Tobacco user service: No Current occupational status: disabled Meds Allergies Allergy/AdvReac Type Severity Reaction Status Date / Time Penicillins [PENICILLINS] Allergy Unknown EYES GET Verified 04/25/24 11:56 RED latex Allergy Unknown Verified 02/20/24 16:36 Active Medications: Current Medications Acetaminophen (Acetaminophen 325 Mg Tablet) 650 mg PO Q6H PRN PRN Reason: Pain, Mild 1-3,fever,headache Albuterol Sulfate (Albuterol Sulfate 90 Mcg 8 Gm Inhaler) 2 puff INHALE Q6H PRN PRN Reason: Wheezing Albuterol Sulfate (Albuterol Sulfate (0.083%) 2.5 Mg/3 Ml Vial.Neb) 2.5 mg INHALE ONCE PRN PRN Reason: Shortness of Breath/Wheezing Last Admin: 04/28/24 08:13 Dose: 2.5 mg Albuterol/Ipratropium (Albuterol/Iprat 2.5/0.5mg 3 Ml Ampul.Neb) 3 ml INHALE RQ4H WHILE AWAKE [facility] Atorvastatin Calcium (Atorvastatin Calcium 20 Mg Tablet) 20 mg PO DAILY [facility] Last Admin: 04/30/24 07:46 Dose: 20 mg Benztropine Mesylate (Benztropine Mesylate 1 Mg Tablet) 1 mg PO BID [facility] Last Admin: 04/30/24 07:46 Dose: 1 mg Calcium Carbonate (Calcium Carbonate 750 Mg Tab.Chew) 750 mg PO Q4H PRN PRN Reason: Heartburn Last Admin: 04/26/24 17:00 Dose: 750 mg Calcium Carbonate/Cholecalciferol (Calcium + Vitamin D 250 Mg Tablet) 500 mg PO BIDWM [facility] Last Admin: 04/30/24 07:46 Dose: 500 mg Carvedilol (Carvedilol 3.125 Mg Tablet) 3.125 mg PO BID [facility]; Protocol Last Admin: 04/29/24 20:04 Dose: 3.125 mg Finasteride (Finasteride 5 Mg Tablet) 5 mg PO DAILY [facility] Last Admin: 04/30/24 07:46 Dose: 5 mg Fluticasone Propionate (Fluticasone Propionate Nasal 16 Gm [place]) 2 spray NOSTRIL-B DAILY [facility] Last Admin: 04/30/24 07:47 Dose: 2 spray Fluticasone/Vilanterol (Fluticasone/Vilanterol 200/25 Blst.W.Dev) 1 puff INHALE RDAILY [facility] Last Admin: 04/30/24 07:46 Dose: 1 puff Gabapentin (Gabapentin 300 Mg Capsule) 300 mg PO TID PRN PRN Reason: nerve pain Guaifenesin/Dextromethorphan (Guaifenesin Dm 200/20/10 Ml 10 Ml Syrup) 10 ml PO Q6H PRN PRN Reason: Cough Last Admin: 04/30/24 00:51 Dose: 10 ml Piperacillin Sod/Tazobactam (Sod 4.5 gm/ Sodium Chloride) 100 mls @ 200 mls/hr IV Q6H [facility] Last Infusion: 04/30/24 10:52 Dose: Infused Albumin Human (Kedbumin 25 %) 100 mls @ 100 mls/hr IV Q6H [facility] Stop: 05/01/24 03:44 Last Infusion: 04/30/24 10:21 Dose: Infused Loperamide HCl (Loperamide Hcl 2 Mg Capsule) 2 mg PO Q4H PRN PRN Reason: Diarrhea Magnesium Hydroxide (Milk Of Magnesia 30 Ml Oral.Susp) 30 ml PO DAILY PRN PRN Reason: Constipation Melatonin (Melatonin 3 Mg Tablet) 9 mg PO BEDTIME [facility] Last Admin: 04/29/24 20:03 Dose: 9 mg Naloxone HCl (Naloxone Hcl 0.4 Mg/Ml Vial) 0.04 mg IVPUSH Q5M PRN PRN Reason: Excessive sedation or RR < 8 Olanzapine (Olanzapine 10 Mg Tablet) 20 mg PO BEDTIME [facility] Last Admin: 04/29/24 20:07 Dose: Not Given Omeprazole (Omeprazole 40 Mg Capsule.Dr) 40 mg PO BID@0630,1630 [facility] Last Admin: 04/30/24 05:24 Dose: 40 mg Ondansetron HCl (Ondansetron Hcl 4 Mg/2 Ml Vial) 4 mg IVPUSH Q8H PRN PRN Reason: Nausea and Vomiting Last Admin: 04/29/24 20:36 Dose: 4 mg Potassium Chloride (Potassium Chloride Packet 20 Meq Packet) 40 meq PO ONCE [facility] Prednisolone Acetate (Prednisolone Acetate 1 % Oph Susp 5 Ml Drpbtl) 1 drop EYE-LEFT DAILY [facility] Last Admin: 04/30/24 07:47 Dose: 1 drop Sodium Chloride (0.9 % Sodium Chloride Flush 3 Ml Syringe) 3 ml IVFLUSH QSHIFT [facility] Last Admin: 04/30/24 07:45 Dose: 3 ml Sucralfate (Sucralfate Oral Suspension 1 Gm/10 Ml Oral.Susp) 1 gm PO QIDACHS [facility] Last Admin: 04/30/24 07:46 Dose: 1 gm Tamsulosin HCl (Tamsulosin Hcl 0.4 Mg Capsule) 0.8 mg PO DAILY [facility] Last Admin: 04/30/24 07:46 Dose: 0.8 mg Vitamin D (Cholecalciferol (Vitamin D3) 25 Mcg Tablet) 50 mcg PO DAILY [facility] Last Admin: 04/30/24 07:46 Dose: 50 mcg Home Medications ?Medication ?Instructions ?Recorded ?Confirmed ?Last Taken ?Type atorvastatin 20 mg tablet 20 mg PO DAILY 10/11/20 04/25/24 12/14/23 History olanzapine 20 mg tablet 20 mg PO BEDTIME 10/11/20 04/25/24 Unknown History albuterol sulfate 90 mcg/actuation 2 puff inhalation Q6H PRN Wheezing 12/20/20 04/25/24 Unknown History aerosol inhaler cetirizine 10 mg tablet 10 mg PO BEDTIME 12/20/20 04/25/24 Unknown History fluticasone propionate 50 2 spray intranasal DAILY 12/20/20 04/25/24 12/29/23 History mcg/actuation nasal spray,suspension gabapentin 300 mg capsule 300 mg PO TID PRN nerve pain 11/13/23 04/25/24 12/29/23 History acetaminophen 325 mg tablet 650 mg PO Q8H PRN pain 12/08/23 04/25/24 Unknown History camphor 3.1 %-methyl salicylate 10 3.1 patch topical BID 12/08/23 04/25/24 Unknown History %-menthol 6 % topical patch (Salonpas) carvedilol 12.5 mg tablet 12.5 mg PO BID 12/08/23 04/25/24 12/29/23 History cholecalciferol (vitamin D3) 50 50 mcg PO DAILY 12/08/23 04/25/24 12/29/23 History mcg (2,000 unit) capsule ferrous sulfate 325 mg (65 mg 325 mg PO MOWEFR 12/08/23 04/25/24 Unknown History iron) tablet finasteride 5 mg tablet 5 mg PO DAILY 12/08/23 04/25/24 Unknown History prednisolone acetate 1 % eye 1 drp ophthalmic-Left DAILY 12/08/23 04/26/24 Unknown History drops,suspension tamsulosin 0.4 mg capsule 0.8 mg PO DAILY 12/08/23 04/25/24 Unknown History fluticasone furoate 200 1 ea inhalation DAILY 12/29/23 04/25/24 12/29/23 History mcg-vilanterol 25 mcg/dose inhalation powder (Breo Ellipta) benztropine 1 mg tablet 1 mg PO BID 04/25/24 04/25/24 Unknown History melatonin 10 mg capsule 10 mg PO BEDTIME 04/25/24 04/25/24 Unknown History omeprazole 20 mg capsule,delayed 20 mg PO BID@0630,1630 04/25/24 04/25/24 Unknown History release ondansetron 8 mg disintegrating 8 mg PO Q8H PRN Nausea And Vomiting 04/25/24 04/25/24 Unknown History tablet sennosides 8.6 mg tablet (Senokot) 8.6 mg PO BEDTIME PRN Constipation 04/25/24 04/25/24 Unknown History Physical Exam Vital Signs: Vital Signs: Last Vital Signs Temp 97.9 F 04/30/24 11:20 Pulse 105 H 04/30/24 11:20 Resp 18 04/30/24 11:20 BP 104/56 L 04/30/24 11:20 Pulse Ox 94 04/30/24 11:20 O2 Del Method Oxymask 04/30/24 11:20 O2 Flow Rate 4 04/30/24 11:20 Oxygen Flow Rate 4 04/30/24 07:58 BMI result Body Mass Index 29.5 GENERAL APPEARANCE: in no acute distress NECK: no carotid bruit, no jugular venous distention. SKIN: no suspicious lesions, warm and dry. HEART: no murmurs, regular rate and rhythm. LUNGS: clear to auscultation anteriorly. ABDOMEN: soft, nontender. EXTREMITIES: no edema. PERIPHERAL PULSES: equal. NEUROLOGIC: No gross deficits, AAO X 3 Objective Labs and Meds 04/29/24 12:00 04/30/24 08:00 Lab results: Laboratory Results - last 24 hr 04/29/24 04/30/24 04/30/24 12:00 08:00 08:11 WBC 5.3 RBC 3.32 L Hgb 9.0 L Hct 28.9 L MCV 87.0 MCH 27.1 MCHC 31.1 RDW 17.3 H Plt Count 130 L MPV 10.0 Absolute Nucleated RBC 0.000 Nucleated RBC % (auto) 0.0 Sodium 140 142 Potassium 3.2 L 3.4 Chloride 104 104 Carbon Dioxide 28 31 H Anion Gap 11 L 10 L BUN 9 8 L Creatinine 0.52 0.46 L Estim Creat Clear Calc 125.5 141.8 Estimated GFR > 60 > 60 Random Glucose 121 H 111 Calcium 7.5 L 7.6 L B-Natriuretic Peptide 106 H Albumin 2.5 L Respiratory Panel [place] See Note Adenovirus (Rapid PCR) Not Detected B.pert (TEM-PCR) Not Detected B.parapertussis DNA PCR Not Detected C. pneumoniae DNA (PCR) Not Detected Coronavirus OC43 (PCR) Not Detected Coronavirus HKU1 (PCR) Not Detected Coronavirus 229E (PCR) Not Detected Coronavirus NL63 (PCR) Not Detected Human Metapneumovir PCR Not Detected Influenza A (RT-PCR) Not Detected Influenza B (RT-PCR) Not Detected M. pneumoniae (PCR) Not Detected Parainfluenza 1 (PCR) Not Detected Parainfluenza 2 (PCR) Not Detected Parainfluenza 3 (PCR) Not Detected Parainfluenza 4 (PCR) Not Detected RSV (PCR) Not Detected Entero/Rhino (PCR) Not Detected SARS-CoV-2 RNA (RT-PCR) Not Detected Assessment and Plan (1) Acute on chronic respiratory failure with hypoxia: Status: Acute Plan Acute on chronic hypoxic failure in a gentleman with gastric tumor on chemotherapy and aspiration. He is on antibiotics. Clinically does not appear to be volume overloaded. Symptoms are likely due to aspiration pneumonia. He is getting an echocardiogram today and I will reviewed later. Currently do not recommend any aggressive diuresis. Supportive care as you are doing. Thank you for allowing me to participate in the care of your patient. Please feel free to contact me if you have any questions. Procedures Date of Service Date of Service: 04/30/24
[2024-04-30 12:30] LABS: MRSA Nasal PCR NEGATIVE (Negative); SA Nasal PCR NEGATIVE (Negative)
[2024-04-30] MEDS: Melatonin 3 MG TABLET 9 MG PO (19:51)
[2024-04-30] MEDS: OLANZapine 10 MG TABLET 20 MG PO (19:52)
[2024-05-01] VITALS (13 sets, daily range): BP systolic 97–115; BP diastolic 51–63; PULSE 92–112; RESP 16–22; TEMP 36.1–37.2; O2SAT 88–96
[2024-05-01] MEDS: 0.9 % Sodium Chloride Flush 3 ML SYRINGE IVFLUSH ×4 (02:50→20:45)
[2024-05-01] MEDS: Albumin Human 25 % 100 ML IV (03:24)
[2024-05-01] MEDS: Piperacillin Sodium/Tazobactam 4.5 GM in 0.9 % Sodium Chloride 100 ML IV ×4 (05:00→22:19)
[2024-05-01] MEDS: Omeprazole 40 MG CAPSULE.DR PO ×2 (05:04→16:20)
[2024-05-01] MEDS: Fluticasone/Vilanterol 200/25 BLST.W.DEV 1 PUFF INHALE (07:55)
[2024-05-01] MEDS: Albuterol/Iprat 2.5/0.5MG 3 ML AMPUL.NEB INHALE ×4 (07:55→20:25)
[2024-05-01] MEDS: Sucralfate Oral Suspension 1 GM/10 ML ORAL.SUSP PO ×4 (07:57→20:44)
[2024-05-01] MEDS: Finasteride 5 MG TABLET PO (07:57)
[2024-05-01] MEDS: Atorvastatin Calcium 20 MG TABLET PO (07:58)
[2024-05-01] MEDS: Cholecalciferol (Vitamin D3) 25 MCG TABLET 50 MCG PO (07:58)
[2024-05-01] MEDS: Calcium + Vitamin D 250 MG TABLET 500 MG PO ×2 (07:58→16:20)
[2024-05-01] MEDS: Benztropine Mesylate 1 MG TABLET PO ×2 (07:58→20:44)
[2024-05-01] MEDS: Tamsulosin HCL 0.4 MG CAPSULE 0.8 MG PO (07:58)
[2024-05-01] MEDS: Fluticasone Propionate Nasal 16 GM SPRAY 2 SPRAY NOSTRIL-B (08:00)
[2024-05-01] MEDS: prednisoLONE Acetate 1 % Oph Susp 5 ML DRPBTL 1 DROP EYE-LEFT (08:00)
--- NOTE | 2024-05-01 09:01 | MHC.SL.SWA ---
Speech Pathologist Impression: Adequate oropharyngeal coordination, pt at moderate risk for aspiration d/t esophageal phase of swallow and hx of reflux Risk of Aspiration Due to: Poor PO Intake Reduced Cognition Dysphasia Diet Status: Liquid Consistency and Strategies for Safe Swallow: Liquid Intake Recommendation: Thin Liquid Intake Strategies: Solid Food Consistency: Dietary Recommendations: Chopped/Advanced (NDD3) Additional Modifications to Solid Foods: Oral Medication Intake: Whole with Puree Please contact the pharmacy regarding appropriate crushable or liquid drug formulations that are available whenever modified delivery is recommended. Compensatory Strategies and Precautions to be Taken for Safe Swallow: Sitting Upright (90 deg) Small Bites and Sips Alternate Liquids/Solids Rate of Ingestion Change Supervision While Eating and Drinking for Safe Swallow: Intermittent Supervision Foods to Avoid: Swallowing Recommended Treatments: Compens. Strategy Educat. Recommendation for Speech: Inpatient Speech Therapy Comment: Pt presents with adequate oropharyngeal coordination for the first two phases of swallow. Pt sipped thins by straw with efficient respiratory cycle, oral containment and timely trigger of pharyngeal swallow. Pt manipulates, formulates and controls bolus during oral phase for purees and solids without difficulty, again exhibiting timely coordination of laryngeal elevation upon swallow trigger. Pt voicing clear upon speaking s/p swallow. No overt s/s of aspiration observed during evaluation. Due to involvement of reflux, pt considered at moderate risk for aspiration of regurgitated material. GI recommendations supersede C SOFTWARE DEVELOPER consistency recc (i.e. liquid diet vs NDD), at this time C SOFTWARE DEVELOPER recc NDD3 with thins, aspiration precautions, upright positioning during PO and for 30 minutes following, alternating consistencies, slow pacing and intermittent supervision. Recc meds in puree. C SOFTWARE DEVELOPER will follow during inpatient stay. Recommendations at d/c to be communicated with half-way to ensure pt is on proper diet to manage chronic dysphagia. PA and RN texted via secure communication with C SOFTWARE DEVELOPER recommendations. Frequency/Duration: M-F daily Date Range for Service Req: Timeline to reassess: Manager Universal Clinican/Clinical Fellow: No Supervisory Statement: I have reviewed and agree with the student/clinical fellow's documentation: N/A Speech Language Pathologist: Hien Strauss M.S., CCC-C SOFTWARE DEVELOPER
[2024-05-01 09:26] LABS: Anion Gap 12 (12-20); Blood Urea Nitrogen 6 mg/dL (9-16); Carbon Dioxide 34 mmol/L (22-29); Chloride 102 mmol/L (96-108); Creatinine Clr Calc Pharmacy 118.6; Estimated Glomerular Filt Rate > 60; Glucose Random 109 mg/dL (60-115); Sodium 145 mmol/L (135-145)
--- NOTE | 2024-05-01 09:37 | PC.NURSE ---
K 3.0 SHERLY Leonardo notified
[2024-05-01 09:46] LABS: Calcium 8.7 mg/dL (8.4-10.2)
[2024-05-01] MEDS: Potassium Chloride Packet 20 MEQ PACKET 40 MEQ PO ×2 (10:33→20:40)
[2024-05-01 11:05] LABS: Magnesium 1.2 mg/dL (1.6-2.6)
[2024-05-01] MEDS: Magnesium Sulfate/H2O 2 GM/50 ML PIGGYBACK IV (11:45)
[2024-05-01] MEDS: Budesonide 0.5 MG/2 ML AMPUL.NEB INHALE ×2 (11:54→20:25)
--- NOTE | 2024-05-01 12:00 | P.PNIM_ITS ---
Subjective Subjective Date of Service: 05/01/24 Interval History: seen and examined this morning follow up for n/v, respiratory failure still requiring oxygen, denies vomiting, reports some coughing and maybe be after eating has been refusing to get out of bed Review of Systems Review of Systems: Yes all other systems are reviewed and are negative Constitutional Constitutional: Denies chills and Denies fever(s) Cardiovascular Cardiovascular: Denies chest pain, Denies palpitations and Reports dyspnea Respiratory Respiratory: Reports cough and Reports dyspnea Endocrine Endocrine: Denies palpitations Physical Exam 2 Vital Signs: Vital Signs: Last Vital Signs Temp 98.4 F 05/01/24 11:47 Pulse 110 H 05/01/24 11:58 Resp 22 H 05/01/24 11:58 BP 115/56 L 05/01/24 11:47 Pulse Ox 93 05/01/24 11:47 O2 Del Method Oxymask 05/01/24 11:47 O2 Flow Rate 4 05/01/24 07:51 Oxygen Flow Rate 4 05/01/24 08:00 BMI result Body Mass Index 29.5 Const: General: alert and awake Nutritional Appearance: average body habitus and overweight Orientation/consciousness: patient oriented x3 Resp: Other: b/l wheeze; diminished breath sounds Effort & Inspection: normal respiratory effort, able to speak in complete sentences, no respiratory distress and no use of accessory muscles Cardio: Rate: regular rate and tachycardic GI: Inspection: No distended Palpation (GI): Soft to palpation and nontender Neuro: Other: grossly nonfocal General: patient oriented x3 and CN's II-XI intact bilaterally Objective Data Active Medications Acetaminophen (Acetaminophen 325 Mg Tablet) 650 mg PO Q6H PRN PRN Reason: Pain, Mild 1-3,fever,headache Albuterol Sulfate (Albuterol Sulfate 90 Mcg 8 Gm Inhaler) 2 puff INHALE Q6H PRN PRN Reason: Wheezing Albuterol Sulfate (Albuterol Sulfate (0.083%) 2.5 Mg/3 Ml Vial.Neb) 2.5 mg INHALE ONCE PRN PRN Reason: Shortness of Breath/Wheezing Last Admin: 04/28/24 08:13 Dose: 2.5 mg Documented By: LEONIDAS Albuterol/Ipratropium (Albuterol/Iprat 2.5/0.5mg 3 Ml Ampul.Neb) 3 ml INHALE RQ4H WHILE AWAKE [facility] Last Admin: 05/01/24 11:54 Dose: 3 ml Documented By: ABEL Atorvastatin Calcium (Atorvastatin Calcium 20 Mg Tablet) 20 mg PO DAILY [facility] Last Admin: 05/01/24 07:58 Dose: 20 mg Documented By: NILAY Benztropine Mesylate (Benztropine Mesylate 1 Mg Tablet) 1 mg PO BID [facility] Last Admin: 05/01/24 07:58 Dose: 1 mg Documented By: NILAY Budesonide (Budesonide 0.5 Mg/2 Ml Ampul.Neb) 0.5 mg INHALE RBID [facility] Last Admin: 05/01/24 11:54 Dose: 0.5 mg Documented By: ABEL Calcium Carbonate (Calcium Carbonate 750 Mg Tab.Chew) 750 mg PO Q4H PRN PRN Reason: Heartburn Last Admin: 04/26/24 17:00 Dose: 750 mg Documented By: RAJ Calcium Carbonate/Cholecalciferol (Calcium + Vitamin D 250 Mg Tablet) 500 mg PO BIDWM [facility] Last Admin: 05/01/24 07:58 Dose: 500 mg Documented By: NILAY Carvedilol (Carvedilol 3.125 Mg Tablet) 3.125 mg PO BID [facility]; Protocol Last Admin: 04/29/24 20:04 Dose: 3.125 mg Finasteride (Finasteride 5 Mg Tablet) 5 mg PO DAILY [facility] Last Admin: 05/01/24 07:57 Dose: 5 mg Documented By: NILAY Fluticasone Propionate (Fluticasone Propionate Nasal 16 Gm [place]) 2 spray NOSTRIL-B DAILY [facility] Last Admin: 05/01/24 08:00 Dose: 2 spray Documented By: NILAY Fluticasone/Vilanterol (Fluticasone/Vilanterol 200/25 Blst.W.Dev) 1 puff INHALE RDAILY [facility] Last Admin: 05/01/24 07:55 Dose: 1 puff Documented By: ABEL Gabapentin (Gabapentin 300 Mg Capsule) 300 mg PO TID PRN PRN Reason: nerve pain Guaifenesin/Dextromethorphan (Guaifenesin Dm 200/20/10 Ml 10 Ml Syrup) 10 ml PO Q6H PRN PRN Reason: Cough Last Admin: 04/30/24 23:10 Dose: 10 ml Documented By: MONA Piperacillin Sod/Tazobactam (Sod 4.5 gm/ Sodium Chloride) 100 mls @ 200 mls/hr IV Q6H [facility] Last Infusion: 05/01/24 11:09 Dose: Infused Documented By: NILAY Magnesium Sulfate (Magnesium Sulfate/H2o) 2 gm in 50 mls @ 25 mls/hr IV ONCE ONE Stop: 05/01/24 13:06 Last Admin: 05/01/24 11:45 Dose: 25 mls/hr Documented By: NILAY Loperamide HCl (Loperamide Hcl 2 Mg Capsule) 2 mg PO Q4H PRN PRN Reason: Diarrhea Magnesium Hydroxide (Milk Of Magnesia 30 Ml Oral.Susp) 30 ml PO DAILY PRN PRN Reason: Constipation Melatonin (Melatonin 3 Mg Tablet) 9 mg PO BEDTIME [facility] Last Admin: 04/30/24 19:51 Dose: 9 mg Documented By: MONA Naloxone HCl (Naloxone Hcl 0.4 Mg/Ml Vial) 0.04 mg IVPUSH Q5M PRN PRN Reason: Excessive sedation or RR < 8 Olanzapine (Olanzapine 10 Mg Tablet) 20 mg PO BEDTIME [facility] Last Admin: 04/30/24 19:52 Dose: 20 mg Documented By: MONA Omeprazole (Omeprazole 40 Mg Capsule.Dr) 40 mg PO BID@0630,1630 [facility] Last Admin: 05/01/24 05:04 Dose: 40 mg Documented By: NINO Ondansetron HCl (Ondansetron Hcl 4 Mg/2 Ml Vial) 4 mg IVPUSH Q8H PRN PRN Reason: Nausea and Vomiting Last Admin: 04/29/24 20:36 Dose: 4 mg Documented By: MONA Potassium Chloride (Potassium Chloride Packet 20 Meq Packet) 40 meq PO ONCE [facility] Potassium Chloride (Potassium Chloride Packet 20 Meq Packet) 40 meq PO BID [facility] Stop: 05/01/24 21:01 Last Admin: 05/01/24 10:33 Dose: 40 meq Documented By: NILAY Prednisolone Acetate (Prednisolone Acetate 1 % Oph Susp 5 Ml Drpbtl) 1 drop EYE-LEFT DAILY [facility] Last Admin: 05/01/24 08:00 Dose: 1 drop Documented By: NILAY Sodium Chloride (0.9 % Sodium Chloride Flush 3 Ml Syringe) 3 ml IVFLUSH QSHIFT [facility] Last Admin: 05/01/24 07:58 Dose: 3 ml Documented By: NILAY Sucralfate (Sucralfate Oral Suspension 1 Gm/10 Ml Oral.Susp) 1 gm PO QIDACHS [facility] Last Admin: 05/01/24 11:45 Dose: 1 gm Documented By: NILAY Tamsulosin HCl (Tamsulosin Hcl 0.4 Mg Capsule) 0.8 mg PO DAILY [facility] Last Admin: 05/01/24 07:58 Dose: 0.8 mg Documented By: INLAY Vitamin D (Cholecalciferol (Vitamin D3) 25 Mcg Tablet) 50 mcg PO DAILY [facility] Last Admin: 05/01/24 07:58 Dose: 50 mcg Documented By: NILAY Labs 05/01/24 08:52 05/01/24 08:52 Labs: Laboratory Results - last 24 hr 04/30/24 05/01/24 10:22 08:52 Hold Purple Top SEE NOTE Anion Gap 12 Estim Creat Clear Calc 118.6 Estimated GFR > 60 Random Glucose 109 Calcium 8.7 D Magnesium 1.2 L* Nasal Screen MRSA (PCR) NEGATIVE Nasal S. 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 Acute respiratory failure with hypoxia initial CT chest showing left lower lobe consolidation, possible aspiration - was started on IV zosyn Hiatal hernia on imaging Recommend small frequent meals/keep upright position after each meal repeat cxr 04/29 showing vascular congestion, treated with IV lasix increasing o2 demands 04/30 - repeat cxr no vascular congestion, BNP low, seen by cardiology, no evidence of CHF RPP negative, MRSA nasal swab negative has h/o underlying mild intermittent asthma, discussed with GI, recommended against using systemic steroids due to esophagitis/gastric mass, started on inhaled steroids frequency of breathing treatments increased speech evaluation - rec NDD3 with thin liquids recommended. for now diet reduced to clear liquids will re-check CT scan, depending on findings consider pulm consult Nausea, vomiting and epigastric pain Multifactorial likely due to chemotherapy secondary to underlying epigastric tumor and hiatal hernia Recent upper endoscopy 12/14 showed mildly tortuous esophagus without stricture, ring, esophagitis or Goldstein's, it showed gastritis and large ulcerated gastric antral mass Case discussed with Dr. Shah she recommend repeat upper endoscopy to look for tumor response to chemotherapy Case discussed with Dr. Dorman s/p EGD 04/28 gastric outlet obstruction, hiatal hernia, erosive esophagitis - plan for high dose PPI with carafate, soft diet with small meals, eat upright may need j tube in the future if worsens/doesn't tolerate po - Acute on chronic normocytic anemia H&H dropped but above transfusion threshold Likely due to chemotherapy and GI bleed, have dark colored stools, no melena or hematochezia stool guaiac pending H/H stable Pancytopenia due to chemotherapy, stable CBC Acute Hypokalemia/hypomagnesemia replace and follow levels follow BMP Schizoaffective disorder Continue olanzapine BPH continue Flomax and finasteride Hypertension initially Coreg on hold for soft bp, on hold for soft bp Hyperlipidemia continue statin DVT prophylaxis compression boots, due to low platelet count and prior history of heme-positive stools - if repeat H/H stable today will start lovenox Full code HCP listed as pt brother - pt does not want brother to be HCP, doesn't want anyone to be HCP, does not want me to call anyone to give update on medical issues or discuss medical issues In my clinical judgment patient requires continued inpatient hospitalization for management of intractable nausea vomiting abdominal pain decreased by mouth intake and electrolyte abnormality , aspiration pneumonia on IV antibiotic Quality Stroke Does the patient have a stroke diagnosis?: No VTE Prior VTE?: No VTE Risk Level:: Medical - moderate - high VTE Device Contraindication: Treatment Not Indicated VTE Drug Contraindication: N/A - Med Ordered
[2024-05-01 12:16] LABS: Hematocrit 29.2 % (42.0-52.0); Mean Corpuscular HGB Conc 30.8 g/dl (31.0-36.0); Mean Corpuscular Hemoglobin 27.1 pg (27.0-33.0); Mean Platelet Volume 9.4 fL (9.4-12.4); Platelet Count 134 X10*3/uL (160-400); Red Blood Count 3.32 X10*6/uL (4.60-5.80); White Blood Count 6.1 X10*3/uL (4.8-10.8)
[2024-05-01 13:09] LABS: VBG Base Excess 16.9 mmol/L; VBG HCO3 42 mmol/L (22-26); VBG pCO2 57 mmHg; VBG pH 7.47 (7.32-7.43); VBG pO2 116 mmHg
[2024-05-01 13:17] LABS: Venous Blood Gas Refer to POC result
[2024-05-01] MEDS: Enoxaparin Sodium 40 MG/0.4 ML SYRINGE SUBCUT (14:28)
--- NOTE | 2024-05-01 14:44 | PC.NURSE ---
patient refused to get out of bed to chair
[2024-05-01] MEDS: Furosemide 20 MG/2 ML VIAL IVPUSH (16:19)
[2024-05-01] MEDS: OLANZapine 10 MG TABLET 20 MG PO (20:43)
[2024-05-01] MEDS: Melatonin 3 MG TABLET 9 MG PO (20:43)
[2024-05-02] VITALS (53 sets, daily range): BP systolic 64–138; BP diastolic 40–79; PULSE 91–162; RESP 16–44; TEMP 31–39.6; O2SAT 88–100; BMI 29.5
--- NOTE | 2024-05-02 | ECG_ITS ---
Test Reason : tachycardia Blood Pressure : */* mmHG Vent. Rate : 144 BPM Atrial Rate : 144 BPM P-R Int : 96 ms QRS Dur : 90 ms QT Int : 352 ms P-R-T Axes : * 79 66 degrees QTcB Int : 545 ms Poor data quality Sinus tachycardia with short CT Low voltage QRS ST & T wave abnormality, consider anterior ischemia Abnormal ECG When compared with ECG of 20-Feb-2024 16:30, Poor data quality in current ECG precludes serial comparison Referred By: Sonia Schilling Electronically Signed By: HANK GIRALDO MD
--- NOTE | 2024-05-02 03:25 | PM.EVENT ---
Event Note Date of Service: 05/02/24 Event Note: Respiratory distress Called for patient in respiratory distress and hypoxic with SpO2 as low as 70 despite being on 4 L of supplemental Oxygen. RN has had to up-titrate his O2 to 50% NRM with improvement of SpO2 to 98% I reviewed his chart and note that he has bilateral pleural effusions and bilateral lung infiltrates. On Exam Gen: Sitted in bed in moderate resp distress Lung: Diminished BS bilaterally with bibasilar rales Ass/Plan 1. Acute respiratory distress with hypoxia - improved with supplemental Oxygen - will give x dose of Lasix 40 mg and an Albuterol updraft - re-evaluate after these interventions Time Spent With Patient Time: Total time managing care of this patient today ____ minutes.
[2024-05-02] MEDS: Furosemide 40 MG/4 ML VIAL IVPUSH (03:32)
[2024-05-02] MEDS: Albuterol Sulfate (0.083%) 2.5 MG/3 ML VIAL.NEB INHALE (03:47)
--- NOTE | 2024-05-02 04:38 | PC.NURSE ---
Addendum entered by SAVANNAH Christopher 05/02/24 05:41: patient transferred to [facility] Original Note: around 0300 patient was satting in the 70s on 4L via oxymask, patient was placed on 15L via non-rebreather and sats improved in the 90s, crackles heard throughout. Dr. Gagnon was called to bedside to examine patient and ordered 40mg of IV push lasix and respiratory was called for breathing treatment. respirations in the 40s, HR in 140s. patient then placed on rescue Bipap 18 over 10 & 60% O2 satting in the 90s. Nursing traffic warehouse supervisor aware of situation. Dr. Ruelas came to bedside and ordered repeat ABGs. At this time awaiting transfer orders for ICU bed.
[2024-05-02 05:03] LABS: ABG Base Excess 14.5 mmol/L; ABG HCO3 42 mmol/L (22-26); ABG pCO2 72 mmHg (32-45); ABG pH 7.37 (7.35-7.45); ABG pO2 78 mmHg (83-108)
[2024-05-02 05:23] LABS: ABG Refer to POC result
[2024-05-02 05:51] LABS: Hematocrit 36.4 % (42.0-52.0); Hemoglobin 11.2 g/dl (14.0-18.0); Mean Corpuscular HGB Conc 30.8 g/dl (31.0-36.0); Mean Corpuscular Hemoglobin 27.3 pg (27.0-33.0); Mean Corpuscular Volume 88.8 fL (80.0-98.0); Mean Platelet Volume 9.7 fL (9.4-12.4); Platelet Count 181 X10*3/uL (160-400); White Blood Count 5.8 X10*3/uL (4.8-10.8)
[2024-05-02] MEDS: Acetaminophen Supp 650 MG SUPP.RECT PR ×2 (06:05→16:14)
[2024-05-02 06:20] LABS: B Type Natriuretic Peptide 94 pg/mL (<100)
[2024-05-02 06:25] LABS: Anion Gap 14 (12-20); Blood Urea Nitrogen 8 mg/dL (9-16); Calcium 9.2 mg/dL (8.4-10.2); Carbon Dioxide 35 mmol/L (22-29); Chloride 99 mmol/L (96-108); Creatinine Clr Calc Pharmacy 101.9; Estimated Glomerular Filt Rate > 60; Glucose Random 108 mg/dL (60-115); Magnesium 1.3 mg/dL (1.6-2.6); Potassium 3.4 mmol/L (3.3-5.1); Sodium 145 mmol/L (135-145)
--- NOTE | 2024-05-02 06:35 | PM.EVENT ---
Event Note Date of Service: 05/02/24 Event Note: The patient has a history of metastatic gastric cancer undergoing chemotherapy and a paraesophageal hernia. He was admitted on 04/25 with nausea and vomiting, likely due to aspiration pneumonia, and has been treated with Zosyn. Chest X-rays have shown bilateral pleural effusions, more prominent on the left. Cardiology has evaluated the patient, and heart failure has been ruled out. The patient was also seen by Dr. Dorman from GI, who performed an EGD on 04/28, revealing gastric outlet obstruction, a hiatal hernia, and erosive esophagitis. The management plan includes high-dose PPI therapy with Carafate, a soft diet with small, frequent meals, and maintaining an upright position while eating. A J-tube may be considered in the future if oral intake worsens or becomes intolerable. Overnight, the patient experienced worsening respiratory distress overnight. IV Lasix was administered, and BiPAP initiated on the medical-surgical floor.Upon my evaluation, I requested an ABG revealing CO2 retention; a stat CXR and Posada catheter were requested. I consulted with the interactive media marketing director, but no ICU beds were available. [facility] and [facility] were contacted, both without bed availability. I attempted to reach the health care proxy, Jose Shirley ([phone]), but he will not be available until 8 AM. In the interim, the patient was transferred to intermediate care, where he soon decompensated. A rapid response was called, and the patient was intubated for increasing work of breathing, hypoxia and less responsiveness. The patient is febrile with a rectal temperature of 102?F. Rectal acetaminophen was administered, with blood cultures and lactic acid ordered. Vancomycin was added to the current Zosyn regimen. Intubation and patient been transfered to ICU discussed with interactive media marketing director. I had the oportunity to talk to the patient earlier and he expressed wish of wanting everything Time Spent With Patient Time: Total time managing care of this patient today _60___ minutes.
[2024-05-02] MEDS: Norepinephrine Bitartrate/D5W 8 MG/250 ML PLAST..BAG 30.19 MG IVCONT (06:40)
[2024-05-02 06:46] LABS: Glucose, Whole Blood 96 mg/dL (60-115)
[2024-05-02] MEDS: Magnesium Sulfate/H2O 2 GM/50 ML PIGGYBACK IV ×3 (06:51→23:21)
[2024-05-02 07:05] LABS: Glucose, Whole Blood 96 mg/dL (60-115)
--- NOTE | 2024-05-02 07:05 | PC.NURSE ---
Pt transferred from med surg to med tele around 0545. Patient arrived with RT and maintenance and operations supervisor. Pt on bipap 07/01 60%. Patient able to state name. As this RN and maintenance and operations supervisor in room, patient started becoming more lethargic and unresponsive. Dr Ruelas at bedside. RETAIL PRICING COORDINATOR called. THERAPEUTIC RECREATION DIRECTOR, RT and ED provider to bedside to intubate. Patient intubated and transferred down to ICU with maintenance and operations supervisor, THERAPEUTIC RECREATION DIRECTOR, and RT.
[2024-05-02 07:07] LABS: Troponin-I High Sensitivity 11.5 ng/L (<3.5-35.0)
[2024-05-02] MEDS: Amiodarone/Dextrose 150 MG/100 ML PLAST..BAG 600 MG IV (07:15)
[2024-05-02] MEDS: propofoL 1,000 MG/100 ML VIAL 4.83 MG IVCONT (07:20)
[2024-05-02] MEDS: Amiodarone HCL 900 MG in 0.9 % Sodium Chloride 500 ML 34.53 MG IVCONT (07:30)
[2024-05-02] MEDS: Budesonide 0.5 MG/2 ML AMPUL.NEB INHALE (07:37)
[2024-05-02] MEDS: Albuterol/Iprat 2.5/0.5MG 3 ML AMPUL.NEB INHALE ×4 (07:37→20:29)
[2024-05-02] MEDS: 0.9 % Sodium Chloride Flush 3 ML SYRINGE IVFLUSH ×2 (08:00→16:00)
--- NOTE | 2024-05-02 08:08 | P.CONGS_ITS ---
History of Present Illness Consult details Consult date: 05/02/24 Narrative: Patient was an unfortunate 72-year-old male with local regionally advanced gastric carcinoma with gastric outlet obstruction. Patient apparently had an aspiration event earlier this morning and is currently intubated in the ICU. Surgical consultation was obtained for consideration of J-tube placement distal to the obstructing lesion. Chart was reviewed and patient evaluated PMFSH Past Medical History Medical History Tremor Mild intermittent asthma Coronary artery disease Schizoaffective disorder HTN (hypertension) Heme + stool Family History Family History Unknown No problems noted. Mother Colon cancer Surgical History Surgical History History of esophagogastroduodenoscopy (EGD) Hx of colonoscopy Social History Social History Household Members: Other Household Members Other:: jail Housing: House Housing Other:: alf. Are you a primary director day care center to a significant other at home: No Do you presently have visiting nurse or other home services: No Alcohol intake: never Patient Tobacco Use Status: Former Tobacco user service: No Current occupational status: disabled Meds Allergies Allergy/AdvReac Type Severity Reaction Status Date / Time Penicillins [PENICILLINS] Allergy Unknown EYES GET Verified 04/25/24 11:56 RED latex Allergy Unknown Verified 02/20/24 16:36 Active Medications: Current Medications Acetaminophen (Acetaminophen 325 Mg Tablet) 650 mg PO Q6H PRN PRN Reason: Pain, Mild 1-3,fever,headache Acetaminophen (Acetaminophen Supp 650 Mg Supp.Rect) 650 mg UT Q6H PRN PRN Reason: Fever >101 Last Admin: 05/02/24 06:05 Dose: 650 mg Albuterol Sulfate (Albuterol Sulfate 90 Mcg 8 Gm Inhaler) 2 puff INHALE Q6H PRN PRN Reason: Wheezing Albuterol Sulfate (Albuterol Sulfate (0.083%) 2.5 Mg/3 Ml Vial.Neb) 2.5 mg INHALE ONCE PRN PRN Reason: Shortness of Breath/Wheezing Last Admin: 05/02/24 03:47 Dose: 2.5 mg Albuterol/Ipratropium (Albuterol/Iprat 2.5/0.5mg 3 Ml Ampul.Neb) 3 ml INHALE RQ4H WHILE AWAKE [facility] Last Admin: 05/02/24 07:37 Dose: 3 ml Atorvastatin Calcium (Atorvastatin Calcium 20 Mg Tablet) 20 mg PO DAILY [facility] Last Admin: 05/01/24 07:58 Dose: 20 mg Benztropine Mesylate (Benztropine Mesylate 1 Mg Tablet) 1 mg PO BID [facility] Last Admin: 05/01/24 20:44 Dose: 1 mg Budesonide (Budesonide 0.5 Mg/2 Ml Ampul.Neb) 0.5 mg INHALE RBID [facility] Last Admin: 05/02/24 07:37 Dose: 0.5 mg Calcium Carbonate/Cholecalciferol (Calcium + Vitamin D 250 Mg Tablet) 500 mg PO BIDWM [facility] Last Admin: 05/01/24 16:20 Dose: 500 mg Carvedilol (Carvedilol 3.125 Mg Tablet) 3.125 mg PO BID [facility]; Protocol Last Admin: 04/29/24 20:04 Dose: 3.125 mg Chlorhexidine Gluconate (Chlorhexidine Gluc Oral Rinse 15 Ml Mouthwash) 15 ml BUCCAL TID [facility] Enoxaparin Sodium (Enoxaparin Sodium 40 Mg/0.4 Ml Syringe) 40 mg SUBCUT Q24H [facility] Last Admin: 05/01/24 14:28 Dose: 40 mg Finasteride (Finasteride 5 Mg Tablet) 5 mg PO DAILY [facility] Last Admin: 05/01/24 07:57 Dose: 5 mg Fluticasone Propionate (Fluticasone Propionate Nasal 16 Gm [place]) 2 spray NOSTRIL-B DAILY [facility] Last Admin: 05/01/24 08:00 Dose: 2 spray Fluticasone/Vilanterol (Fluticasone/Vilanterol 200/25 Blst.W.Dev) 1 puff INHALE RDAILY [facility] Last Admin: 05/02/24 07:40 Dose: Not Given Gabapentin (Gabapentin 300 Mg Capsule) 300 mg PO TID PRN PRN Reason: nerve pain Guaifenesin/Dextromethorphan (Guaifenesin Dm 200/20/10 Ml 10 Ml Syrup) 10 ml PO Q6H PRN PRN Reason: Cough Last Admin: 04/30/24 23:10 Dose: 10 ml Piperacillin Sod/Tazobactam (Sod 4.5 gm/ Sodium Chloride) 100 mls @ 200 mls/hr IV Q6H [facility] Last Infusion: 05/01/24 23:20 Dose: Infused Magnesium Sulfate (Magnesium Sulfate/H2o) 2 gm in 50 mls @ 25 mls/hr IV ONCE ONE Stop: 05/02/24 08:22 Last Admin: 05/02/24 06:51 Dose: 25 mls/hr Magnesium Sulfate (Magnesium Sulfate/H2o) 2 gm in 50 mls @ 25 mls/hr IV ONCE ONE Stop: 05/02/24 10:29 Vancomycin HCl (Vancomycin/Ns) 2,000 mg in 500 mls @ 250 mls/hr IV ONCE ONE Stop: 05/02/24 08:59 Propofol (Diprivan) 1,000 mg in 100 mls @ 0 mls/hr IVCONT .Q0M [facility]; Protocol Norepinephrine Bitartrate (Levophed) 8 mg in 250 mls @ 0 mls/hr IVCONT .Q0M [facility]; Protocol Amiodarone HCl 900 mg/ Sodium (Chloride) 518 mls @ 34.533 mls/hr IVCONT .Q15H1M [facility]; Protocol Loperamide HCl (Loperamide Hcl 2 Mg Capsule) 2 mg PO Q4H PRN PRN Reason: Diarrhea Magnesium Hydroxide (Milk Of Magnesia 30 Ml Oral.Susp) 30 ml PO DAILY PRN PRN Reason: Constipation Melatonin (Melatonin 3 Mg Tablet) 9 mg PO BEDTIME [facility] Last Admin: 05/01/24 20:43 Dose: 9 mg Naloxone HCl (Naloxone Hcl 0.4 Mg/Ml Vial) 0.04 mg IVPUSH Q5M PRN PRN Reason: Excessive sedation or RR < 8 Olanzapine (Olanzapine 10 Mg Tablet) 20 mg PO BEDTIME [facility] Last Admin: 05/01/24 20:43 Dose: 20 mg Omeprazole (Omeprazole 40 Mg Capsule.Dr) 40 mg PO BID@0630,1630 [facility] Last Admin: 05/01/24 16:20 Dose: 40 mg Ondansetron HCl (Ondansetron Hcl 4 Mg/2 Ml Vial) 4 mg IVPUSH Q8H PRN PRN Reason: Nausea and Vomiting Last Admin: 04/29/24 20:36 Dose: 4 mg Pantoprazole Sodium (Pantoprazole Sodium 40 Mg/10 Ml Vial) 40 mg IVPUSH BID@0630,1630 [facility] Pharmacy Consult (Consult Rx Vancomycin Dosing) 1 each MISCELLANE DAILY PRN PRN Reason: Consult order Polyethylene Glycol (Polyethylene Glycol 3350 17 Gm Powd.Pack) 17 gm PO DAILY [facility] Prednisolone Acetate (Prednisolone Acetate 1 % Oph Susp 5 Ml Drpbtl) 1 drop EYE-LEFT DAILY [facility] Last Admin: 05/01/24 08:00 Dose: 1 drop Sodium Chloride (0.9 % Sodium Chloride Flush 3 Ml Syringe) 3 ml IVFLUSH QSHIFT [facility] Last Admin: 05/01/24 20:45 Dose: 3 ml Sucralfate (Sucralfate Oral Suspension 1 Gm/10 Ml Oral.Susp) 1 gm PO QIDACHS [facility] Last Admin: 05/01/24 20:44 Dose: 1 gm Tamsulosin HCl (Tamsulosin Hcl 0.4 Mg Capsule) 0.8 mg PO DAILY [facility] Last Admin: 05/01/24 07:58 Dose: 0.8 mg Vitamin D (Cholecalciferol (Vitamin D3) 25 Mcg Tablet) 50 mcg PO DAILY [facility] Last Admin: 05/01/24 07:58 Dose: 50 mcg Home Medications ?Medication ?Instructions ?Recorded ?Confirmed ?Last Taken ?Type atorvastatin 20 mg tablet 20 mg PO DAILY 10/11/20 04/25/24 12/14/23 History olanzapine 20 mg tablet 20 mg PO BEDTIME 10/11/20 04/25/24 Unknown History albuterol sulfate 90 mcg/actuation 2 puff inhalation Q6H PRN Wheezing 12/20/20 04/25/24 Unknown History aerosol inhaler cetirizine 10 mg tablet 10 mg PO BEDTIME 12/20/20 04/25/24 Unknown History fluticasone propionate 50 2 spray intranasal DAILY 12/20/20 04/25/24 12/29/23 History mcg/actuation nasal spray,suspension gabapentin 300 mg capsule 300 mg PO TID PRN nerve pain 11/13/23 04/25/24 12/29/23 History acetaminophen 325 mg tablet 650 mg PO Q8H PRN pain 12/08/23 04/25/24 Unknown History camphor 3.1 %-methyl salicylate 10 3.1 patch topical BID 12/08/23 04/25/24 Unknown History %-menthol 6 % topical patch (Salonpas) carvedilol 12.5 mg tablet 12.5 mg PO BID 12/08/23 04/25/24 12/29/23 History cholecalciferol (vitamin D3) 50 50 mcg PO DAILY 12/08/23 04/25/24 12/29/23 History mcg (2,000 unit) capsule ferrous sulfate 325 mg (65 mg 325 mg PO MOWEFR 12/08/23 04/25/24 Unknown History iron) tablet finasteride 5 mg tablet 5 mg PO DAILY 12/08/23 04/25/24 Unknown History prednisolone acetate 1 % eye 1 drp ophthalmic-Left DAILY 12/08/23 04/26/24 Unknown History drops,suspension tamsulosin 0.4 mg capsule 0.8 mg PO DAILY 12/08/23 04/25/24 Unknown History fluticasone furoate 200 1 ea inhalation DAILY 12/29/23 04/25/24 12/29/23 History mcg-vilanterol 25 mcg/dose inhalation powder (Breo Ellipta) benztropine 1 mg tablet 1 mg PO BID 04/25/24 04/25/24 Unknown History melatonin 10 mg capsule 10 mg PO BEDTIME 04/25/24 04/25/24 Unknown History omeprazole 20 mg capsule,delayed 20 mg PO BID@0630,1630 04/25/24 04/25/24 Unknown History release ondansetron 8 mg disintegrating 8 mg PO Q8H PRN Nausea And Vomiting 04/25/24 04/25/24 Unknown History tablet sennosides 8.6 mg tablet (Senokot) 8.6 mg PO BEDTIME PRN Constipation 04/25/24 04/25/24 Unknown History Physical Exam 2 Vital Signs: Vital Signs: Last Vital Signs Temp 102.0 F H 05/02/24 06:00 Pulse 126 H 05/02/24 07:40 Resp 18 05/02/24 07:40 BP 69/46 L 05/02/24 06:13 Pulse Ox 94 05/02/24 06:13 O2 Del Method Ambu-Bag 05/02/24 06:13 O2 Flow Rate 15 05/02/24 02:55 FiO2 80 05/02/24 07:40 Oxygen Flow Rate 4 05/01/24 08:00 BMI result Body Mass Index 29.5 Const: Other: Patient was currently intubated, sedated. NG tube in place. GI: Other: Abdomen is soft, benign on limited exam secondary to patient's intubation and sedation Results Labs 05/02/24 05:33 05/02/24 05:33 Labs: Abnormal lab results 05/01/24 05/01/24 05/02/24 Range/Units 08:52 12:51 04:58 RBC 3.32 L (4.60-5.80) X10*6/uL Hgb 9.0 L (14.0-18.0) g/dl Hct 29.2 L (42.0-52.0) % MCHC 30.8 L (31.0-36.0) g/dl RDW 17.0 H (11.0-16.0) % Plt Count 134 L (160-400) X10*3/uL ABG pCO2 at Pt Temp 72 H* (32-45) mmHg ABG pO2 at Pt Temp 78 L (83-108) mmHg ABG HCO3 42 H (22-26) mmol/L VBG pH 7.47 H (7.32-7.43) VBG HCO3 42 H (22-26) mmol/L Potassium 3.0 L (3.3-5.1) mmol/L Carbon Dioxide 34 H (22-29) mmol/L BUN 6 L (9-16) mg/dL Magnesium 1.2 L* (1.6-2.6) mg/dL 05/02/24 Range/Units 05:33 RBC 4.10 L D (4.60-5.80) X10*6/uL Hgb 11.2 L D (14.0-18.0) g/dl Hct 36.4 L D (42.0-52.0) % MCHC 30.8 L (31.0-36.0) g/dl RDW 17.0 H (11.0-16.0) % Plt Count (160-400) X10*3/uL ABG pCO2 at Pt Temp (32-45) mmHg ABG pO2 at Pt Temp (83-108) mmHg ABG HCO3 (22-26) mmol/L VBG pH (7.32-7.43) VBG HCO3 (22-26) mmol/L Potassium (3.3-5.1) mmol/L Carbon Dioxide 35 H (22-29) mmol/L BUN 8 L (9-16) mg/dL Magnesium 1.3 L* (1.6-2.6) mg/dL Short CBC 05/01/24 05/02/24 Range/Units 08:52 05:33 WBC 6.1 5.8 (4.8-10.8) X10*3/uL Hgb 9.0 L 11.2 L D (14.0-18.0) g/dl Hct 29.2 L 36.4 L D (42.0-52.0) % Plt Count 134 L 181 D (160-400) X10*3/uL BMP 05/01/24 05/02/24 08:52 05:33 Sodium 145 145 Potassium 3.0 L 3.4 Chloride 102 99 Carbon Dioxide 34 H 35 H BUN 6 L 8 L Creatinine 0.55 0.64 Calcium 8.7 D 9.2 Urine 04/26/24 Range/Units 11:49 Urine Color Yellow Urine Appearance Clear Urine pH 5.5 (5.0-9.0) Ur Specific Reading 1.010 (1.005-1.025) Urine Protein Negative (Neg-Trace) mg/dL Urine Glucose (UA) Negative (Negative) mg/dL All other labs normal. Assessment and Plan (1) Gastric mass: Status: Acute (2) Gastric outlet obstruction: Status: Acute (3) Acute on chronic respiratory failure with hypoxia: Status: Acute Plan Once patient's current status is stabilized, consideration for both a G-tube and a J-tube should be considered for palliation and nutrition respectively to alleviate the gastric outlet obstruction and provide nutrition . Procedures Date of Service Date of Service: 05/02/24
[2024-05-02] MEDS: Vasopressin 20 UNIT/100 ML INFUS..BTL 12 UNIT IVCONT ×3 (08:23→21:26)
[2024-05-02] MEDS: dexmedeTOMIDidine HCL/NS 400 MCG/100 ML INFUS..BTL 28.18 MCG IVCONT (08:37)
[2024-05-02] MEDS: 0.9 % Sodium Chloride 1,000 ML 999 ML IV (08:57)
[2024-05-02 09:33] LABS: ABG Base Excess 10.4 mmol/L; ABG HCO3 33 mmol/L (22-26); ABG pCO2 40 mmHg (32-45); ABG pH 7.53 (7.35-7.45); ABG pO2 94 mmHg (83-108)
[2024-05-02] MEDS: Piperacillin Sodium/Tazobactam 4.5 GM in 0.9 % Sodium Chloride 100 ML IV ×3 (10:04→22:19)
[2024-05-02] MEDS: Norepinephrine Bitartrate/D5W 8 MG/250 ML PLAST..BAG 69.43 MG IVCONT ×3 (10:59→18:03)
[2024-05-02] MEDS: vancomycin/NS 2,000 MG/500 ML PLAST..BAG 250 MG IV (11:15)
[2024-05-02] MEDS: Pantoprazole Sodium 40 MG/10 ML VIAL IVPUSH ×2 (11:16→16:08)
[2024-05-02] MEDS: Chlorhexidine Gluc Oral Rinse 15 ML MOUTHWASH BUCCAL ×3 (11:17→21:55)
[2024-05-02] MEDS: dexmedeTOMIDidine HCL/NS 400 MCG/100 ML INFUS..BTL 24.15 MCG IVCONT (11:47)
[2024-05-02] MEDS: Atorvastatin Calcium 20 MG TABLET PO (11:57)
--- NOTE | 2024-05-02 12:49 | MHC.CLN ---
PT MAY REQUIRE ALTERNATIVE NUTRITION R/T PROLONGED NPO STATUS PT IS INTUBATED AND SEDATED POSSIBLE J TUBE PLACEMENT PT IS CURRENTLY NPO IF TF NEEDED; RECOMMEND TF PROMOTE AT MAX GOAL RATE 85ML/HR WITH 120ML FREE WATER Q 8 HRS PROVIDES 2040KCALS (30KCALS/KG), 127G PROTEIN (1.8G/KG), 2071ML TOTAL WATER FROM FORMULA ND FLUSHES (30ML/KG) MONITOR TOLERANCE AND LYTES CONSULT RD IF TPN NEEDED SEE ALSO FULL CLINICAL NUTRITION ASSESSMENT
[2024-05-02] MEDS: Albumin Human 25 % 100 ML 133.33 ML IV ×2 (13:31→16:10)
--- NOTE | 2024-05-02 13:52 | PC.NURSE ---
Spoke to Lucrecia Solorio - nurse from patient's [facility], in [place], [place]. Lucrecia's number at [facility]: [phone], Reported that patient has refused picking new healthcare proxy - was his brother, Pool Muñiz, . Rogelio Crews is director of [facility] (listed as another contact). Updated about plan of care and current patient condition - intubated, sedated.
[2024-05-02] MEDS: prednisoLONE Acetate 1 % Oph Susp 5 ML DRPBTL 1 DROP EYE-LEFT (14:11)
[2024-05-02] MEDS: Enoxaparin Sodium 40 MG/0.4 ML SYRINGE SUBCUT (14:44)
--- NOTE | 2024-05-02 15:06 | MHC.CM.PN ---
Addendum entered by Mayela Davies 05/02/24 15:10: Pt has a HCP on file from 2018 listing his brother Pool as his HCP: Registration updated info for EMR. Copies in unit chart and EMR Original Note: Intubated and given IV Mg today: surgical consult for ? peg/j tube in the setting of gastric outlet obstruction r/t malignancy. Pt from a [facility] care home: will likely need a STR - CM to await surgical possibility before referrals.
--- NOTE | 2024-05-02 15:48 | W.PM.CCCN ---
History of Present Illness Data of Consult Service Date: 05/02/24 Primary Care Provider: Xu Moody MD [facility] Reason for consult: Hypoxia 74-year-old gentleman with past medical history of metastatic gastric cancer, HTN, CAD, schizoaffective disorder, mild intermittent asthma, tremors, currently receiving chemotherapy with FOLFOX and nivolumab was admitted to the hospital on 04/25/2024 from the oncology clinic due to poor oral intake and abdominal pain. Patient has significant hiatal hernia with dilation of esophagus leading to significant dysphagia. Hospital course complicated with aspiration pneumonia with significantly increase in oxygen requirement in the floor eventually leading to severe hypoxia this morning needing intubation and ventilator support so transferred to medical ICU. He has been hypotensive since intubation needing multiple vasopressor support. Review of Systems Review of Systems: Unable to obtain as patient is intubated and on ventilator support PMFSH Past Medical History Medical History Tremor Mild intermittent asthma Coronary artery disease Schizoaffective disorder HTN (hypertension) Heme + stool Family History Family History Unknown No problems noted. Mother Colon cancer Surgical History Surgical History History of esophagogastroduodenoscopy (EGD) Hx of colonoscopy Social History Social History Household Members: Other Household Members Other:: [facility] Housing: House Housing Other:: penitentiary. Are you a primary vision care associate to a significant other at home: No Do you presently have visiting nurse or other home services: No Alcohol intake: never Patient Tobacco Use Status: Former Tobacco user service: No Current occupational status: disabled Meds Allergies Allergy/AdvReac Type Severity Reaction Status Date / Time Penicillins [PENICILLINS] Allergy Unknown EYES GET Verified 04/25/24 11:56 RED latex Allergy Unknown Verified 02/20/24 16:36 Active Medications: Current Medications Acetaminophen (Acetaminophen 325 Mg Tablet) 650 mg PO Q6H PRN PRN Reason: Pain, Mild 1-3,fever,headache Acetaminophen (Acetaminophen Supp 650 Mg Supp.Rect) 650 mg WV Q6H PRN PRN Reason: Fever >101 Last Admin: 05/02/24 06:05 Dose: 650 mg Albuterol Sulfate (Albuterol Sulfate 90 Mcg 8 Gm Inhaler) 2 puff INHALE Q6H PRN PRN Reason: Wheezing Albuterol Sulfate (Albuterol Sulfate (0.083%) 2.5 Mg/3 Ml Vial.Neb) 2.5 mg INHALE ONCE PRN PRN Reason: Shortness of Breath/Wheezing Last Admin: 05/02/24 03:47 Dose: 2.5 mg Albuterol/Ipratropium (Albuterol/Iprat 2.5/0.5mg 3 Ml Ampul.Neb) 3 ml INHALE RQ4H WHILE AWAKE [facility] Last Admin: 05/02/24 14:59 Dose: 3 ml Atorvastatin Calcium (Atorvastatin Calcium 20 Mg Tablet) 20 mg PO DAILY [facility] Last Admin: 05/02/24 11:57 Dose: 20 mg Chlorhexidine Gluconate (Chlorhexidine Gluc Oral Rinse 15 Ml Mouthwash) 15 ml BUCCAL TID [facility] Last Admin: 05/02/24 11:17 Dose: 15 ml Enoxaparin Sodium (Enoxaparin Sodium 40 Mg/0.4 Ml Syringe) 40 mg SUBCUT Q24H [facility] Last Admin: 05/02/24 14:44 Dose: 40 mg Finasteride (Finasteride 5 Mg Tablet) 5 mg PO DAILY [facility] Last Admin: 05/02/24 12:21 Dose: Not Given Furosemide (Furosemide 100 Mg/10 Ml Vial) 80 mg IVPUSH ONCE ONE; Protocol Stop: 05/02/24 15:45 Gabapentin (Gabapentin 300 Mg Capsule) 300 mg PO TID PRN PRN Reason: nerve pain Piperacillin Sod/Tazobactam (Sod 4.5 gm/ Sodium Chloride) 100 mls @ 200 mls/hr IV Q6H [facility] Last Infusion: 05/02/24 10:42 Dose: Infused Norepinephrine Bitartrate (Levophed) 8 mg in 250 mls @ 0 mls/hr IVCONT .Q0M [facility]; Protocol Last Admin: 05/02/24 14:38 Dose: 0.46 mcg/kg/min, 69.43 mls/hr Amiodarone HCl 900 mg/ Sodium (Chloride) 518 mls @ 34.533 mls/hr IVCONT .Q15H1M [facility]; Protocol Last Infusion: 05/02/24 13:26 Dose: 0.5 mg/min, 17.27 mls/hr Dexmedetomidine HCl (Precedex) 400 mcg in 100 mls @ 0 mls/hr IVCONT .Q0M [facility]; Protocol Last Titration: 05/02/24 14:07 Dose: 0 mcg/kg/hr, 0 mls/hr Vasopressin (Vasostrict) 20 unit in 100 mls @ 12 mls/hr IVCONT .Q8H20M [facility]; Protocol Last Admin: 05/02/24 14:59 Dose: 0.04 unit/min, 12 mls/hr Propofol (Diprivan) 1,000 mg in 100 mls @ 0 mls/hr IVCONT .Q0M [facility]; Protocol Last Titration: 05/02/24 10:21 Dose: 0 mcg/kg/min, 0 mls/hr Vancomycin HCl 1,250 mg/ (Sodium Chloride) 250 mls @ 166.667 mls/hr IV Q12H [facility] Albumin Human (Kedbumin 25 %) 100 mls @ 133.333 mls/hr IV Q1H ONE Stop: 05/02/24 16:44 Loperamide HCl (Loperamide Hcl 2 Mg Capsule) 2 mg PO Q4H PRN PRN Reason: Diarrhea Naloxone HCl (Naloxone Hcl 0.4 Mg/Ml Vial) 0.04 mg IVPUSH Q5M PRN PRN Reason: Excessive sedation or RR < 8 Olanzapine (Olanzapine 10 Mg Tablet) 20 mg PO BEDTIME [facility] Last Admin: 05/01/24 20:43 Dose: 20 mg Ondansetron HCl (Ondansetron Hcl 4 Mg/2 Ml Vial) 4 mg IVPUSH Q8H PRN PRN Reason: Nausea and Vomiting Last Admin: 04/29/24 20:36 Dose: 4 mg Pantoprazole Sodium (Pantoprazole Sodium 40 Mg/10 Ml Vial) 40 mg IVPUSH BID@0630,1630 [facility] Last Admin: 05/02/24 11:16 Dose: 40 mg Pharmacy Consult (Consult Rx Vancomycin Dosing) 1 each MISCELLANE DAILY PRN PRN Reason: Consult order Polyethylene Glycol (Polyethylene Glycol 3350 17 Gm Powd.Pack) 17 gm PO DAILY [facility] Last Admin: 05/02/24 12:22 Dose: Not Given Prednisolone Acetate (Prednisolone Acetate 1 % Oph Susp 5 Ml Drpbtl) 1 drop EYE-LEFT DAILY [facility] Last Admin: 05/02/24 14:11 Dose: 1 drop Sodium Chloride (0.9 % Sodium Chloride Flush 3 Ml Syringe) 3 ml IVFLUSH QSHIFT [facility] Last Admin: 05/02/24 08:00 Dose: 3 ml Sucralfate (Sucralfate Oral Suspension 1 Gm/10 Ml Oral.Susp) 1 gm PO QIDACHS [facility] Last Admin: 05/02/24 13:51 Dose: Not Given Tamsulosin HCl (Tamsulosin Hcl 0.4 Mg Capsule) 0.8 mg PO DAILY [facility] Last Admin: 05/02/24 12:20 Dose: Not Given Home Medications ?Medication ?Instructions ?Recorded ?Confirmed ?Last Taken ?Type atorvastatin 20 mg tablet 20 mg PO DAILY 10/11/20 04/25/24 12/14/23 History olanzapine 20 mg tablet 20 mg PO BEDTIME 10/11/20 04/25/24 Unknown History albuterol sulfate 90 mcg/actuation 2 puff inhalation Q6H PRN Wheezing 12/20/20 04/25/24 Unknown History aerosol inhaler cetirizine 10 mg tablet 10 mg PO BEDTIME 12/20/20 04/25/24 Unknown History fluticasone propionate 50 2 spray intranasal DAILY 12/20/20 04/25/24 12/29/23 History mcg/actuation nasal spray,suspension gabapentin 300 mg capsule 300 mg PO TID PRN nerve pain 11/13/23 04/25/24 12/29/23 History acetaminophen 325 mg tablet 650 mg PO Q8H PRN pain 12/08/23 04/25/24 Unknown History camphor 3.1 %-methyl salicylate 10 3.1 patch topical BID 12/08/23 04/25/24 Unknown History %-menthol 6 % topical patch (Salonpas) carvedilol 12.5 mg tablet 12.5 mg PO BID 12/08/23 04/25/24 12/29/23 History cholecalciferol (vitamin D3) 50 50 mcg PO DAILY 12/08/23 04/25/24 12/29/23 History mcg (2,000 unit) capsule ferrous sulfate 325 mg (65 mg 325 mg PO MOWEFR 12/08/23 04/25/24 Unknown History iron) tablet finasteride 5 mg tablet 5 mg PO DAILY 12/08/23 04/25/24 Unknown History prednisolone acetate 1 % eye 1 drp ophthalmic-Left DAILY 12/08/23 04/26/24 Unknown History drops,suspension tamsulosin 0.4 mg capsule 0.8 mg PO DAILY 12/08/23 04/25/24 Unknown History fluticasone furoate 200 1 ea inhalation DAILY 12/29/23 04/25/24 12/29/23 History mcg-vilanterol 25 mcg/dose inhalation powder (Breo Ellipta) benztropine 1 mg tablet 1 mg PO BID 04/25/24 04/25/24 Unknown History melatonin 10 mg capsule 10 mg PO BEDTIME 04/25/24 04/25/24 Unknown History omeprazole 20 mg capsule,delayed 20 mg PO BID@0630,1630 04/25/24 04/25/24 Unknown History release ondansetron 8 mg disintegrating 8 mg PO Q8H PRN Nausea And Vomiting 04/25/24 04/25/24 Unknown History tablet sennosides 8.6 mg tablet (Senokot) 8.6 mg PO BEDTIME PRN Constipation 04/25/24 04/25/24 Unknown History Physical Exam Vital Signs: Vital Signs: Last Vital Signs Temp 100.8 F H 05/02/24 14:00 Pulse 91 05/02/24 15:02 Resp 16 05/02/24 15:02 BP 118/67 05/02/24 14:59 Pulse Ox 99 05/02/24 14:00 O2 Del Method Mechanical Ventil ation 05/02/24 14:00 O2 Flow Rate 15 05/02/24 02:55 FiO2 50 05/02/24 15:02 Oxygen Flow Rate 100 05/02/24 08:00 BMI result Body Mass Index 29.5 General: In acute distress, ill appearing and tired appearing Nutritional Appearance: well nourished and overweight Eyes: appearance normal, both eyes and all related structures; Alignment and Position: alignment normal and position normal Neck: No lymphadenopathy, no thyromegaly Resp: bilateral air entry equal, o crackles heard bilaterally mostly in the lung bases Cardio: Regular rate, regular rhythm; Heart sounds: S1 normal heart sound present and S2 normal heart sound present GI: soft, nontender, no guarding, no hepatosplenomegaly : bladder normal to inspection, bladder normal to palpation, no renal angle tenderness Skin: no rashes or lesions noted and elasticity normal Neuro: When sedation was weaned patient was able to follow commands Results Labs 05/02/24 05:33 05/02/24 05:33 Labs: Short CBC 04/29/24 05/02/24 Range/Units 12:00 05:33 WBC 5.3 5.8 (4.8-10.8) X10*3/uL Hgb 9.0 L 11.2 L D (14.0-18.0) g/dl Hct 28.9 L 36.4 L D (42.0-52.0) % Plt Count 130 L 181 D (160-400) X10*3/uL BMP 04/28/24 04/29/24 05/02/24 05:24 12:00 05:33 Sodium 139 140 145 Potassium 3.5 3.2 L 3.4 Chloride 106 104 99 Carbon Dioxide 27 28 35 H BUN 7 L 9 8 L Creatinine 0.55 0.52 0.64 Calcium 7.8 L 7.5 L 9.2 Assessment and Plan (1) Septic shock: Status: Acute (2) Acute hypoxemic respiratory failure: Status: Acute (3) Aspiration pneumonia: Status: Acute (4) Acute kidney injury: Status: Acute Plan Neuro: Acute encephalopathy possibly due to metabolic encephalopathy On propofol for sedation, Precedex for analgesia and anxiolysis. Patient would follow commands when sedation was weaned off Close neurological status monitoring in the ICU every hour Cardiac: Shock: Possibly secondary to sepsis from aspiration pneumonia On Levophed and vasopressin for vasopressor support, titrate Levophed to keep map above 65 mm Hg Respiratory: Acute hypoxemic respiratory failure due to bilateral aspiration pneumonia Currently on ventilator support On PRVC mode FiO2 90%, PEEP 10, TV 400, RR 20; we will titrate FiO2 down as tolerated during the day Peak pressures and plateau pressures are under the curve Ventilator management bundle with head end elevation, aspiration precaution, chlorhexidine mouthwash, daily awakening trials, daily spontaneous breathing trials GI: Metastatic gastric cancer: 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 Hold off on tube feeds Renal: Baseline creatinine normal, creatinine today is 0.76. As patient is anuric despite getting a litre of NS bolus and 200 cc of albumin bolus along with Lasix we will repeat a Ca We will closely monitor I's and O's Avoid nephrotoxic medications Heme: Chronic anemia, closely monitor H&H, transfuse for hemoglobin less than 7 grams/deciliter Endocrine: Blood sugars under control Sliding scale insulin as needed Infectious disease: We will send pancultures MRSA nares negative we will discontinue vancomycin Continue cefepime for antibiotic coverage Musculoskeletal: Decubitus ulcer prevention protocol Lines: Femoral art line Peripheral access Prophylaxis: Lovenox, pantoprazole Critical care time spent is about 60 minutes on stabilizing this critically ill patient who is just intubated in the floor, time spent is mainly on ventilator management, managing episodes of hypoxia, sedation management, managing hypotension with multiple vasopressor drips, close hemodynamic monitoring, review of charts and images
--- NOTE | 2024-05-02 16:02 | W.PM.CCHP ---
Procedures Date of Service Date of Service: 05/02/24 Arterial Line Consent: Emergent-no informed consent obtained Sterile Technique Used: Yes Time out performed: Yes Size (Gauge): 20 Technique used: modified Seldinger technique Post-Procedure: line sutured into place and dry sterile dressing placed Patient tolerated procedure: well and no complications Complications: none Site: right and femoral
[2024-05-02] MEDS: Furosemide 100 MG/10 ML VIAL 80 MG IVPUSH (16:08)
--- NOTE | 2024-05-02 16:12 | PHA.PROG ---
Admission Date/Time: April 25, 2024 15:05 Indication: RESP Weight in k.5 kg Serum Creatinine - Last 168 Hours 04/26/24 04/27/24 04/28/24 05:45 05:16 05:24 Creatinine 0.51 0.48 L 0.55 04/29/24 04/30/24 05/01/24 12:00 08:00 08:52 Creatinine 0.52 0.46 L 0.55 05/02/24 05:33 Creatinine 0.64 Estimated CrCl and GFR - Last 168 Hours 04/26/24 04/27/24 04/28/24 05:45 05:16 05:24 Estim Creat Clear Calc 127.9 135.9 118.6 Estimated GFR > 60 > 60 > 60 04/29/24 04/30/24 05/01/24 12:00 08:00 08:52 Estim Creat Clear Calc 125.5 141.8 118.6 Estimated GFR > 60 > 60 > 60 05/02/24 05:33 Estim Creat Clear Calc 101.9 Estimated GFR > 60 Vancomycin Loading Dose: 1999 Current Vancomycin Dosing Regimen: 1250 Q 12H Vancomycin Monitoring using AUC goal of 400 - 600 range with trough as surrogate marker: 548 Date and Time for next Vancomycin Level to be drawn: 05/03 @ 2100 BEFORE 2300 DOSE Pharmacist Comments on Vancomycin Plan: Vancomycin dosing will take advantage of [employer] as a clinical decision support tool that uses Bayesian modeling to calculate individual patient's pharmacokinetic parameters and forecast the patient's drug concentration time course with the target goal AUC 24 range of 400 - 600 mg/L/hr.
[2024-05-02 16:51] LABS: INTERNATIONAL NORM RATIO 1.9 (0.9-1.1); Prothrombin Time 22.6 SEC (10.9-12.4)
[2024-05-02 17:00] LABS: Alanine Aminotransferase 66 U/L (0-40); Albumin Level 3.3 g/dL (3.5-5.0); Alkaline Phosphatase 82 U/L (39-117); Anion Gap 20 (12-20); Aspartate Amino Transferase 179 U/L (5-37); Bilirubin Total 1.5 mg/dL (0.0-1.0); Blood Urea Nitrogen 11 mg/dL (9-16); Calcium 8.2 mg/dL (8.4-10.2); Carbon Dioxide 23 mmol/L (22-29); Chloride 102 mmol/L (96-108); Creatinine Clr Calc Pharmacy 52.6; Estimated Glomerular Filt Rate 57; Glucose Random 208 mg/dL (60-115); Potassium 4.3 mmol/L (3.3-5.1); Sodium 141 mmol/L (135-145); Total Protein 5.7 g/dL (6.5-8.0)
--- NOTE | 2024-05-02 17:21 | PC.NURSE ---
Addendum entered by Michele Streeter RN 05/02/24 17:43: ETT was at 22cm at approx 1400 - RT aware. Patient weaned off sedation & pupils now equal - Dr Cazares aware. Patient now responding to pain & RASS within goal. Original Note: Shift eval - assumed care at 0650 to 3pm. Patient just intubated and still sedated from RSI medications (ketamine & Emre). Sonia Schilling DELIVERER OUTSIDE at bedside, CXR reading called to pull back ETT - 7.5 ETT moved from 25cm to 23 cm. RT at bedside. OG tube unable to be seen - not sure if in stomach at that time, per cxr. Patient BP starting to drop to 60's systolic, HR elevated, up to 140's, ST, with occ PVCs. Sheela Schilling DELIVERER OUTSIDE at bedside order for amio drip & increase levophed more rapidly (see MAR). BP continues to drop & Dr Cazares made aware - order to titrate levophed more rapidly as well, order to add vaso (administered per MAR). @ approx 0900, Dr Cazares at bedside - inserted A-LINE to Right fem. Dressed and zeroed - waveform appropriate. Repeat ABG done and results shown to Dr Cazares from RT - elevated pH - vent settings changed by RT - see vent assessment. Initially started on propofol for sedation - starting to wake up. Attempted to switch to precedex, but had to use both drips. Afternoon assessment - pupils noted to be unequal - 2mm right pupil, 3 mm left pupil, minimally reactive. Excessive sedation. Dr Cazares aware - weaned sedation meds per RASS orders, see MAR. OG tube to suction - attempted to advance, unable. Dr Cazares came to bedside, assist with glidescope to advance. Repeat CXR done - @ approx 1040, Dr Cazares order to use OG tube now for any medications needed to give via OG/TUBE. Small amt brown/green liquid gastric contents noted. Copious amount of oral clear secretions noted as well during advancement of OG tube. Order to hold suction for any emergency medical service coordinator via OG for 20-30 min. Holding PO meds per Dr Cazares - see MAR. Continuing statin per Dr Cazares. Posada in place after intubation - 300 mL tea colored urine drained from initial insertion, no urine output after the 300 mL - Dr Sage smith - order for bladder scan, completed - 76 mL bladder scan. Order for bolus & albumin (administered per MAY). Only 20 mL urine produced as of 1399 - Dr Sage smith. Vanco ordered - consulted with pharmacy about future need for vanco trough - pharmacy implemented order.
--- NOTE | 2024-05-02 19:37 | PC.NURSE ---
Assumed care of this patient at 15:00. Pt remains intubated, continues on sedation vacation continues as on assuming care per Dr. Cazares (see MAR). Patient responds/withdraws to painful stimulus. Pupils now equal 2mm mildly reactive/sluggish. Dr. Cazares made aware. Right femoral A-line remains in place, good waveform observed and it is correlating with cuff BPs. Patient continues on amiodarone gtt, vasopressin, and levophed per MAY. Albumin given x1 per MD. Patient remains SR on tele. Febrile 101.5 core temp this afternoon. Prn DC tylenol given with little effectiveness. Ice packs applied to bilateral axilla. Discussed temp reassessment after interventions with MD who advised a cooling blanket, attempting to obtainin. Continues on vent, tolerating without issue and spo2 maintained (see vent assessments for full details). Soft wrist restraints continue with q2h assessments +radial pulses and +cms maintained (please see non-behavioral restraint care flow sheet). In-line and po suctioning produced clear secretions. PO care provided. OG tube continues to LIWS per MD, patent and functioning with 300ml output for the day shift. Posada cath remains in place with minimal UOP light eusebia to tea colored desepite IV lasix given per MAY. MD was made aware of this. Q6h POCs started while NPO. Bed alarm on and safety measures in place. Plan of care continues. Please see shift assessments, tasks, and MAR for full details. Handoff report given to oncoming RN at 19:00.
[2024-05-02] MEDS: Norepinephrine Bitartrate/NS 32 MG/250 ML PLAST..BAG 17.36 MG IVCONT (20:56)
[2024-05-02 21:49] LABS: Anion Gap 21 (12-20); Blood Urea Nitrogen 13 mg/dL (9-16); Carbon Dioxide 22 mmol/L (22-29); Chloride 101 mmol/L (96-108); Creatinine Clr Calc Pharmacy 43.7; Estimated Glomerular Filt Rate 46; Glucose Random 263 mg/dL (60-115); Magnesium 1.4 mg/dL (1.6-2.6); Phosphorus 2.8 mg/dL (2.7-4.5); Potassium 3.9 mmol/L (3.3-5.1); Sodium 140 mmol/L (135-145)
[2024-05-02] MEDS: Lactated Ringers 1,000 ML 100 ML IVCONT (22:00)
[2024-05-02 23:52] LABS: Glucose, Whole Blood 242 mg/dL (60-115)
[2024-05-03] VITALS (44 sets, daily range): BP systolic 89–122; BP diastolic 51–94; PULSE 75–90; RESP 15–30; TEMP 34.7–39.3; O2SAT 90–100; BMI 23.2
--- NOTE | 2024-05-03 | ECG_ITS ---
Test Reason : drop in lv systolic function Blood Pressure : */* mmHG Vent. Rate : 82 BPM Atrial Rate : 82 BPM P-R Int : 158 ms QRS Dur : 94 ms QT Int : 494 ms P-R-T Axes : 57 79 125 degrees QTcB Int : 577 ms Normal sinus rhythm Low voltage QRS Septal infarct , age undetermined Abnormal ECG When compared with ECG of 02-May-2024 06:41, AL interval has increased Vent. rate has decreased by 62 bpm Nonspecific T wave abnormality now evident in Inferior leads Referred By: Teddy Cazares Electronically Signed By: HANK GIRALDO MD
[2024-05-03] MEDS: dexmedeTOMIDidine HCL/NS 400 MCG/100 ML INFUS..BTL 16.1 MCG IVCONT ×3 (00:15→11:05)
[2024-05-03] MEDS: Insulin Lispro 100 UNIT/ML 3 ML VIAL SUBCUT ×2 (00:23→05:14)
[2024-05-03] MEDS: 0.9 % Sodium Chloride Flush 3 ML SYRINGE IVFLUSH ×4 (00:24→20:42)
[2024-05-03 00:29] LABS: ABG Refer to POC result
[2024-05-03] MEDS: HYDROmorphone HCl 0.5 MG/0.5 ML SYRINGE 0.25 MG IVPUSH (00:55)
[2024-05-03] MEDS: Vasopressin 20 UNIT/100 ML INFUS..BTL 12 UNIT IVCONT ×3 (03:08→17:47)
[2024-05-03 04:20] LABS: ABG Base Excess 0.4 mmol/L; ABG HCO3 24 mmol/L (22-26); ABG pCO2 37 mmHg (32-45); ABG pH 7.42 (7.35-7.45); ABG pO2 88 mmHg (83-108)
[2024-05-03 04:36] LABS: Hematocrit 29.6 % (42.0-52.0); Hemoglobin 9.4 g/dl (14.0-18.0); Mean Corpuscular HGB Conc 31.8 g/dl (31.0-36.0); Mean Corpuscular Hemoglobin 27.4 pg (27.0-33.0); Mean Corpuscular Volume 86.3 fL (80.0-98.0); Mean Platelet Volume 9.1 fL (9.4-12.4); NRBC Pct Auto 0.2 /100WBC (0.0-0.2); Platelet Count 209 X10*3/uL (160-400); Red Blood Count 3.43 X10*6/uL (4.60-5.80); Red Cell Distribution Width 17.4 % (11.0-16.0); White Blood Count 21.8 X10*3/uL (4.8-10.8)
[2024-05-03] MEDS: Piperacillin Sodium/Tazobactam 4.5 GM in 0.9 % Sodium Chloride 100 ML IV ×4 (05:02→23:20)
[2024-05-03 05:03] LABS: Alanine Aminotransferase 1144 U/L (0-40); Anion Gap 21 (12-20); Aspartate Amino Transferase 3883 U/L (5-37); Bilirubin Total 1.8 mg/dL (0.0-1.0); Blood Urea Nitrogen 17 mg/dL (9-16); Calcium 7.7 mg/dL (8.4-10.2); Carbon Dioxide 21 mmol/L (22-29); Chloride 101 mmol/L (96-108); Estimated Glomerular Filt Rate 36; Glucose Random 218 mg/dL (60-115); Magnesium 2.6 mg/dL (1.6-2.6); Phosphorus 3.5 mg/dL (2.7-4.5); Potassium 4.1 mmol/L (3.3-5.1); Sodium 139 mmol/L (135-145); Total Protein 5.1 g/dL (6.5-8.0)
[2024-05-03 05:07] LABS: Alkaline Phosphatase 78 U/L (39-117)
[2024-05-03 05:09] LABS: ABG Refer to POC result
[2024-05-03] MEDS: Pantoprazole Sodium 40 MG/10 ML VIAL IVPUSH ×2 (05:09→16:30)
[2024-05-03 05:16] LABS: Burr Cells 1+ (0-2) /OIF; Lymphocytes Absolute Manual 1.3 X10*3/uL (1.2-4.9); Lymphocytes Percent Manual 6 % (20-40); Neutrophils Percent Manual 71 % (45-73); Ovalocytes 1+ (5-14) /OIF; RBC Morphology NOTED
[2024-05-03 05:17] LABS: Polychromasia 1+ (0-2) /OIF; Schistocytes 1+ (0-2) /OIF
[2024-05-03 05:18] LABS: Platelet Estimate NORMAL (NORMAL); Platelet Morphology Comment NORMAL; Tear Drop Cells 1+ (0-2) /OIF
[2024-05-03 05:19] LABS: Band Neutrophils Percent 18 % (3-5); Dohle Bodies PRESENT; Monocytes Absolute Manual 1.1 X10*3/uL (0.1-1.2); Monocytes Percent Manual 5 % (2-11); Neutrophils Absolute Manual 19.4 X10*3/uL (2.0-8.3); Toxic Granulation PRESENT
[2024-05-03] MEDS: Amiodarone HCL 900 MG in 0.9 % Sodium Chloride 500 ML 17.27 MG IVCONT (06:29)
[2024-05-03] MEDS: Lactated Ringers 1,000 ML 100 ML IVCONT (07:03)
[2024-05-03] MEDS: prednisoLONE Acetate 1 % Oph Susp 5 ML DRPBTL 1 DROP EYE-LEFT (08:00)
[2024-05-03] MEDS: Chlorhexidine Gluc Oral Rinse 15 ML MOUTHWASH BUCCAL ×3 (08:08→20:42)
[2024-05-03] MEDS: Albuterol/Iprat 2.5/0.5MG 3 ML AMPUL.NEB INHALE ×4 (08:34→20:36)
[2024-05-03] MEDS: Norepinephrine Bitartrate/NS 32 MG/250 ML PLAST..BAG 17.36 MG IVCONT (09:52)
[2024-05-03 11:17] LABS: Glucose, Whole Blood 130 mg/dL (60-115)
--- NOTE | 2024-05-03 11:38 | MHC.CLN ---
F/U PT IS INTUBATED AND SEDATED DISCUSSED AT ROUNDS WITH MD-PLAN TO REMAIN NPO FOR TODAY TOMORROW POSSIBLE PPN FOLLOWING FOR DIET ADVANCEMENT
--- NOTE | 2024-05-03 12:08 | PM.CCPN ---
Subjective Subjective Date of Service: 05/03/24 Critical Care Time (minutes): 50 Comment: Continues to be critically ill On ventilator support this morning however FiO2 could have been titrated down Decrease in urine output with a new onset THEODORE Shock liver with LFTs up to 3800 Bedside echo showing new onset drop in EF possibly secondary to septic cardiomyopathy Physical Exam Vital Signs: Vital Signs: Last Vital Signs Temp 98.2 F 05/03/24 08:00 Pulse 81 05/03/24 11:34 Resp 22 H 05/03/24 11:34 BP 122/68 05/03/24 11:00 Pulse Ox 96 05/03/24 11:00 O2 Del Method Mechanical Ventil ation 05/03/24 11:00 O2 Flow Rate 15 05/02/24 02:55 FiO2 40 05/03/24 11:34 Oxygen Flow Rate 100 05/02/24 08:00 BMI result Body Mass Index 23.2 General: In acute distress, ill appearing and tired appearing Nutritional Appearance: Okay nourished and normal weight Eyes: appearance normal, both eyes and all related structures; Alignment and Position: alignment normal and position normal Neck: No lymphadenopathy, no thyromegaly Resp: bilateral air entry equal, crackles heard in bilateral lung base left more than right Cardio: Regular rate, regular rhythm; Heart sounds: S1 normal heart sound present and S2 normal heart sound present GI: soft, nontender, no guarding, no hepatosplenomegaly : bladder normal to inspection, bladder normal to palpation, no renal angle tenderness Skin: no rashes or lesions noted and elasticity normal Neuro: Sedated, no focal deficits Objective Data Labs 05/03/24 04:13 05/03/24 04:13 Labs: Laboratory Results - last 24 hr 04/28/24 04/29/24 04/29/24 08:13 05:31 12:00 WBC 5.3 RBC 3.32 L Hgb 9.0 L Hct 28.9 L MCV 87.0 MCH 27.1 MCHC 31.1 RDW 17.3 H Plt Count 130 L MPV 10.0 Immature Gran % (Auto) Neut % (Auto) Lymph % (Auto) Armstrong % (Auto) Eos % (Auto) Baso % (Auto) Lymph # (Auto) Armstrong # (Auto) Eos # (Auto) Baso # (Auto) Abs Immat Gran (auto) Absolute Neuts (auto) Absolute Nucleated RBC 0.000 Nucleated RBC % (auto) 0.0 Neutrophils % (Manual) Band Neutrophils % Lymphocytes % (Manual) Monocytes % (Manual) Abs Neuts (Manual) Lymphocytes # (Manual) Monocytes # (Manual) Toxic Granulation Dohle Bodies Platelet Estimate Plt Morphology Comment RBC Morphology Polychromasia Tear Drop Cells Ovalocytes [place] Cells Schistocytes Hold Purple Top PT INR O2 Saturation ABG pH at Pt Temp ABG pCO2 at Pt Temp ABG pO2 at Pt Temp ABG HCO3 ABG Base Excess (Actual) Sodium 140 Potassium 3.2 L Chloride 104 Carbon Dioxide 28 Anion Gap 11 L BUN 9 Creatinine 0.52 Estim Creat Clear Calc 125.5 Estimated GFR > 60 POC Glucose 104 Random Glucose 121 H Calcium 7.5 L Phosphorus Magnesium 1.6 Total Bilirubin AST ALT Alkaline Phosphatase Total Protein Albumin 05/02/24 05/02/24 05/02/24 16:32 20:32 23:48 WBC RBC Hgb Hct MCV MCH MCHC RDW Plt Count MPV Immature Gran % (Auto) Neut % (Auto) Lymph % (Auto) Armstrong % (Auto) Eos % (Auto) Baso % (Auto) Lymph # (Auto) Armstrong # (Auto) Eos # (Auto) Baso # (Auto) Abs Immat Gran (auto) Absolute Neuts (auto) Absolute Nucleated RBC Nucleated RBC % (auto) Neutrophils % (Manual) Band Neutrophils % Lymphocytes % (Manual) Monocytes % (Manual) Abs Neuts (Manual) Lymphocytes # (Manual) Monocytes # (Manual) Toxic Granulation Dohle Bodies Platelet Estimate Plt Morphology Comment RBC Morphology Polychromasia Tear Drop Cells Ovalocytes Liliya Cells Schistocytes Hold Purple Top SEE NOTE PT 22.6 H D INR 1.9 H O2 Saturation ABG pH at Pt Temp ABG pCO2 at Pt Temp ABG pO2 at Pt Temp ABG HCO3 ABG Base Excess (Actual) Sodium 141 140 Potassium 4.3 D 3.9 Chloride 102 101 Carbon Dioxide 23 22 Anion Gap 20 21 H BUN 11 13 Creatinine 1.24 1.49 H Estim Creat Clear Calc 52.6 43.7 Estimated GFR 57 46 POC Glucose 242 H Random Glucose 208 H 263 H Calcium 8.2 L D 8.0 L Phosphorus 2.8 Magnesium 1.4 L* Total Bilirubin 1.5 H AST 179 H ALT 66 H Alkaline Phosphatase 82 Total Protein 5.7 L Albumin 3.3 L 05/03/24 05/03/24 05/03/24 04:13 04:16 11:13 WBC 21.8 H RBC 3.43 L Hgb 9.4 L Hct 29.6 L MCV 86.3 MCH 27.4 MCHC 31.8 RDW 17.4 H Plt Count 209 MPV 9.1 L Immature Gran % (Auto) Cancelled Neut % (Auto) Cancelled Lymph % (Auto) Cancelled Armstrong % (Auto) Cancelled Eos % (Auto) Cancelled Baso % (Auto) Cancelled Lymph # (Auto) Cancelled Armstrong # (Auto) Cancelled Eos # (Auto) Cancelled Baso # (Auto) Cancelled Abs Immat Gran (auto) Cancelled Absolute Neuts (auto) Cancelled Absolute Nucleated RBC 0.040 H Nucleated RBC % (auto) 0.2 Neutrophils % (Manual) 71 Band Neutrophils % 18 H Lymphocytes % (Manual) 6 L Monocytes % (Manual) 5 Abs Neuts (Manual) 19.4 H Lymphocytes # (Manual) 1.3 Monocytes # (Manual) 1.1 Toxic Granulation PRESENT Dohle Bodies PRESENT Platelet Estimate NORMAL Plt Morphology Comment NORMAL RBC Morphology NOTED Polychromasia 1+ (0-2) Tear Drop Cells 1+ (0-2) Ovalocytes 1+ (5-14) [place] Cells 1+ (0-2) Schistocytes 1+ (0-2) Hold Purple Top PT INR O2 Saturation 97.0 ABG pH at Pt Temp 7.42 ABG pCO2 at Pt Temp 37 ABG pO2 at Pt Temp 88 ABG HCO3 24 ABG Base Excess (Actual) 0.4 Sodium 139 Potassium 4.1 Chloride 101 Carbon Dioxide 21 L Anion Gap 21 H BUN 17 H Creatinine 1.86 H Estim Creat Clear Calc 35.0 Estimated GFR 36 POC Glucose 130 H Random Glucose 218 H Calcium 7.7 L Phosphorus 3.5 Magnesium 2.6 Total Bilirubin 1.8 H AST 3883 H ALT 1144 H Alkaline Phosphatase 78 Total Protein 5.1 L Albumin 3.0 L Microbiology Microbiology Results: Microbiology 05/02/24 07:09 Blood - Venous Blood Culture - Preliminary No growth after 24 hours. 05/02/24 07:09 Blood - Venous Blood Culture - Preliminary No growth after 24 hours. Progress Note: A&P Assessment and plan (1) Schizoaffective disorder: Status: Acute (2) HTN (hypertension): Status: Acute (3) Coronary artery disease: Status: Acute (4) Acute kidney injury: Status: Acute (5) Septic shock: Status: Acute (6) Acute on chronic respiratory failure with hypoxia: Status: Acute (7) Acute hypoxemic respiratory failure: Status: Acute (8) Aspiration pneumonia: Status: Acute Plan Neuro: Acute encephalopathy possibly due to metabolic encephalopathy On propofol for sedation, Precedex for analgesia and anxiolysis. Close neurological status monitoring in the ICU every hour Cardiac: Shock: Possibly secondary to sepsis from aspiration pneumonia On Levophed and vasopressin for vasopressor support, titrate Levophed to keep map above 65 mm Hg Bedside echo shows a new drop in the EF, RV size looks okay possibly secondary to septic cardiomyopathy. We will get EKG and we will trend troponins; if the troponin trend is increasing significantly we will consult Cardiology Atrial fibrillation: Reverted back to sinus rhythm Can not start on rate-controlling agent due to shock Amiodarone stopped this morning due to liver dysfunction Respiratory: Acute hypoxemic respiratory failure due to bilateral aspiration pneumonia Currently on ventilator support On PRVC mode FiO2 titrated down to 50%, PEEP we will decrease to 5 given shock liver, TV 400, RR 20 Peak pressures and plateau pressures are under the curve Ventilator management bundle with head end elevation, aspiration precaution, chlorhexidine mouthwash, daily awakening trials, daily spontaneous breathing trials GI: Metastatic gastric cancer: Gastric cancer with metastasis to bone currently on FOLFOX and Nivolumab chemotherapy CT abdomen showing thickened gastric antrum, hiatal hernia and dilated esophagus filled with fluids I could see active aspiration of the gastric contents into the airway, continue OG tube to suction. Hold off on tube feeds Shock liver: Sudden rise in AST 3800, ALT 1100 from almost normal yesterday We will stop amiodarone, we will decrease the PEEP to 5 We will get hepatitis panel and liver ultrasound Renal: Acute kidney injury: Baseline creatinine normal, creatinine increased to 1.8 secondary to ATN from shock Continues to be oliguric on continuous fluids We will closely monitor I's and O's Avoid nephrotoxic medications Heme: Chronic anemia, closely monitor H&H, transfuse for hemoglobin less than 7 grams/deciliter Endocrine: Blood sugars under control Sliding scale insulin as needed Infectious disease: Pancultures negative so far If MRSA nares negative we will discontinue vancomycin Continue cefepime for antibiotic coverage Musculoskeletal: Decubitus ulcer prevention protocol Lines: Femoral art line Peripheral access Prophylaxis: Lovenox, pantoprazole Patient is critically ill with multiple organ failures including acute encephalopathy, acute hypoxemic respiratory failure, septic shock, acute renal failure, shock liver. Critical care time spent is about 60 minutes on stabilizing this critically ill patient on ventilator management, changing ventilator support, sedation management, vasopressor management, close hemodynamic monitoring, review of charts and images Quality Stroke Does the patient have a stroke diagnosis?: No VTE Prior VTE?: No VTE Risk Level:: Medical - moderate - high VTE Device Contraindication: Treatment Not Indicated VTE Drug Contraindication: N/A - Med Ordered
[2024-05-03 12:41] LABS: Troponin-I High Sensitivity 1692.3 ng/L (<3.5-35.0)
[2024-05-03] MEDS: Enoxaparin Sodium 40 MG/0.4 ML SYRINGE SUBCUT (13:25)
--- NOTE | 2024-05-03 13:53 | PM.SEPBOLA4 ---
Sepsis Bolus Exclusion Sepsis Bolus Exclusion CHF/Renal Failure Date of Occurrence: 05/02/24 This patient met severe sepsis criteria due to the following condition(s):: Hypotension and Lactate>=4mmol/L In my clinical judgement the administration of 30 ml/kg of crystalloid would be detrimental to this patient due to the patient's following conditions:: NYHA class III or IV Heart Failure(symptoms with low exertion or rest) Other (must be specific):: Patient has a history of heart failure, had dilated RV on bedside ECHO Replace the 30 mls/kg with (Zero amount not acceptable and all fluids for severe sepsis must be given at GREATER than 125 mls/hr) *Note: One of the agrawal must be documented Crystalloids amount given in mls: (rate must be at least 150cc/hr): 1,000 At a rate of (must be > 125 cchr):: 250
--- NOTE | 2024-05-03 14:00 | CA_ITS ---
Transthoracic Echocardiogram Patient (Last, First, Middle): Timothy Muñiz, Gender: Male Date of : 1950 Age: 74 Procedure Date: 05/03/2024 Procedure Type: Transthoracic Echocardiogram Location: ICU Height: 165.1 cm Weight: 63.5 kg BSA: 1.70 m2 Heart Rate: 90 bpm BP: 112 / 73 mmHg Wildlife Technician: SB Referring MD: Teddy Cazares MD Symptoms: new drop in EF, troponin leak Study Quality: Adequate ECG Rhythm: Sinus Conclusions: - Severely reduced LV ejection fraction 25-30% with multiple territory wall motion abnormality, findings could be seen in patients with stress-induced cardiomyopathy Findings Procedure Information Contrast agent, definity, is being given per protocol without apparent complications. Left Ventricle Normal left ventricular cavity size. There is normal left ventricular wall thickness. The left ventricular systolic function is severely decreased. The visually estimated ejection fraction is between 25-30%. Wall Motion Rest Echo Findings The entire apex, the mid anterior, mid inferior, mid anterolateral, mid inferoseptal, mid anteroseptal, and mid inferolateral segments are akinetic. All other scored wall segments showed normal motion. Pericardium/Pleural There is no evidence of pericardial effusion. Prior Study Comparison Significant changes compared to prior study dated: 04/30/2024. LV ejection fraction is significantly reduced. Findings discussed with Dr. Cazares Measurements 2D Linear Measurements IVSd: 0.85 0.6-0.9/0.6-1.0 cm LVIDd: 5.28 3.9-5.3/4.2-5.9 cm LVIDd Index: 3.11 2.4-3.2/2.2-3.1 cm/m2 LVIDs: 4.66 2.0-3.6 cm LVPWd: 0.62 0.7-1.1 cm LV Mass: 166.76 67-162/88-224 g LV Mass Index: 98.10 43-95/49-115 g/m2 LVOT Diam: 1.90 3.0+(-)1.3 cm 2D Systolic Function EF 4C: 30.10 >55% EF 2C: 21.70 >55% EF BiP: 25.40 >55% Mitral Valve MV Pk E: 0.50 MV PK A: 0.42 MV Decel Time: 175.00 E/A: 1.20 E'Lateral: 4.03 E'Medial: 4.03 E/E' Med: 12.30 E/E' Lat: 12.30 PHT: 51.00 MVA PHT: 4.31 Decel [place]: 2.84 LVOT LVOT Pk Jose: 0.74 LVOT Mn Jose: 0.46 LVOT VTI: 0.10 LVOT Pk Grad: 2.00 LVOT Mn Grad: 1.00 LVOT Diam: 1.90 LVOT Area: 2.84 Diastolic Function MV Pk E: 0.50 MV Pk A: 0.42 E/A: 1.20 E'Medial: 4.03 E/E' Med: 12.30 E' Laterial: 4.03 E/E' Lat: 12.30 Tricuspid Valve TR Pk Jose: 2.47 TR Pk Grad: 24.00 RA Press: 15.00 RVSP: 39.00 Updated in Other Vendor System with Status of Final Silver Cain MD electronically signed on 05/03/2024 2:43:54 PM with status of Final
[2024-05-03] MEDS: Furosemide 100 MG/10 ML VIAL 80 MG IVPUSH (14:28)
[2024-05-03] MEDS: Phenylephrine HCL 100 MG in 0.9 % Sodium Chloride 250 ML 24.65 MG IVCONT ×2 (14:34→22:19)
--- NOTE | 2024-05-03 14:58 | PC.NURSE ---
Addendum entered by Michele Streeter RN 05/03/24 17:21: Dr Cazares attempted to call brother Proxy - phone number not working. Mayela cottrell made aware and will look into contact information. Addendum entered by Michele Streeter RN 05/03/24 16:59: Patient temp up to 102.6. Placed on cooling blanket, ID tylenol administered. Dr Cazares aware. Addendum entered by Michele Streeter RN 05/03/24 16:38: Addendum - Dr Cazares ordered to not do sedation vacation today r/t high dose vasopressor need & cardiac issues. @ approx 1640 Dr Cain here to see patient for cardiac consult - no new orders or plans at this time. Addendum entered by Michele Streeter RN 05/03/24 15:38: Patient tolerating high concentration maryann - pulse pressure improved. EKG done today as well, viewed by provider. Tolerating repositioning. Original Note: Shift eval 7a-3p - Patient remains intubated - BP managment with high concentration levo & vaso set rate. Sedation managed with precedex - see MAR for all titrations. Maintaining RASS goals. Will open eyes to tactile and verbal stimuli. Rounds 9am - Worsening liver enzymes and kidney function labs - order to decrease peep to 5, RT at bedside to make change. Order to stop amio drip. Issue with OG tube placement - order to hold any OG tube meds. Dr Cazares held any other ordered meds that were ordered PO. Plan to consider PPN tomorrow if still NPO and OG tube issues. Bedside ABD ultrasound completed. Tolerating PC vent settings & peep change. FiO2 maintaining at 40%. Dr Cazares did bedside cardiac ultrasound - concern about LV function. Troponin ordered - critical result reported to Dr Cazares. Cardiac consult put in. Bedside echo completed. Pulse pressure narrowing. Changed levo to high concentration phenylephrine. Stopped LR. One dose of lasix given, 80mg. Total 10 mL urine output 7a to this time. Dr Cazares aware.
--- NOTE | 2024-05-03 15:34 | MHC.CM.PN ---
Addendum entered by Mayela Davies 05/03/24 15:53: Pt's HCP contact number not in service: Call placed to pt's [facility] direct, Jose (Rogelio) who states pt and Pool have not spoken in several years over a financial matter. Pt has refused to list family as contacts but never completed an updated HCP. Will discuss situation with CM director on 05/04 for assistance with proceeding with decision making. CM to follow Original Note: Pt remains intubated: multiorgan impairments/failures: now with shock liver and elevated troponins in the setting of pna and acute cholecystitis: echo ordered. MD to speak with pt's HCP, brother Pool to review clinical findings and discuss goals of care. CM to follow
--- NOTE | 2024-05-03 15:43 | HO.WOUND ---
Wound Consult: Initial 74yr old?male admitted to [facility] on 04/25/24 - See progress notes and H&P for detailed history.? Wound consult placed for Buttock.? Patient is intubated and remains in ICU level of care. Buttock sacrum and coccyx assessed - no redness no skin integrity issues noted. There is a foam dressing in place at this time. The patient anatomy creates a pocket at the sacrum and there is concern for the foam to trap moisture. The foam was reapplied and placed with in the crease / pocket - direct care team informed to remove if foam dressing seems to continue to create pocket that could lead to skin break down. At this time no pigmentation changes noted. Patient has wedges in use with Q2hr turns, Heel protector boots in use as well needs SANJEEV pump direct care team will work to obtain. No topical recommendation needed at this time a side from SANJEEV pump application to mattress. Recommendations: 1. Turn and Reposition every 2 hours and as needed for patient comfort.? Use pillows or wedges to support off loading positions. 2. Off Load all bony prominences with use of pillows and heel boots if needed.? Apply Preventative foams where needed. ? 3. Monitor for incontinence and moisture control, use barrier creams when needed for prevention and treatment. 4. Provide adequate and supplemental nutrition.? 5. Order low air loss mattress. 6. When applicable maintain blood glucose levels per Providers order. 7. Sacrum - Assess foam when in use - if trapping moisture remove and use barrier cream in stead. Re-consult wound care Nurse for wound deterioration or wound changes.
[2024-05-03] MEDS: Acetaminophen Supp 650 MG SUPP.RECT PR (16:31)
[2024-05-03] MEDS: dexmedeTOMIDidine HCL/NS 400 MCG/100 ML INFUS..BTL 20.13 MCG IVCONT (16:32)
[2024-05-03 16:37] LABS: Alanine Aminotransferase 1701 U/L (0-40); Albumin Level 2.9 g/dL (3.5-5.0); Anion Gap 19 (12-20); Aspartate Amino Transferase > 5234 U/L (5-37); Bilirubin Total 1.9 mg/dL (0.0-1.0); Blood Urea Nitrogen 22 mg/dL (9-16); Calcium 7.4 mg/dL (8.4-10.2); Carbon Dioxide 22 mmol/L (22-29); Chloride 102 mmol/L (96-108); Creatinine Clr Calc Pharmacy 24.8; Estimated Glomerular Filt Rate 28; Glucose Random 135 mg/dL (60-115); Potassium 4.2 mmol/L (3.3-5.1); Sodium 139 mmol/L (135-145)
--- NOTE | 2024-05-03 16:46 | P.CONCA_ITS ---
History of Present Illness History of Present Illness Date of Service: 05/03/24 Requesting physician: Teddy Cazares Consult reason: troponin elevation and other (Shock) Chief complaint: intractable nausea vomiting and abdominal pain Narrative: I was consulted to see Timothy in cardiology consultation today due to noted reduction LV ejection fraction with elevated troponins with shock. Patient was 74-year-old male with past medical history of gastric cancer with bone Mets, history reported of CAD, hypertension as well as seasonal affective disorder and asthma who was admitted on April 25 with nausea vomiting abdominal pain and subsequently admitted for nausea and vomiting with dehydration in addition to having her acute hypokalemia as well as hypomagnesemia. Patient was noted to have significantly esophageal dilatation with hiatal hernia and subsequently became hypoxemic related to aspiration pneumonia and subsequently had increasing respiratory requirement and oxygen requirement. Patient subsequently became severely hypoxemic requiring intubation ventilatory support and was transferred to ICU. Initially bedside echocardiogram suggested normal LV ejection fraction with normal troponins. Patient subsequently deteriorated with poor urine output and was also noted to have significantly elevated liver enzymes consistent with shock liver and subsequent developed hypotension that required initially given Levophed but with narrow pulse pressure repeat echo was performed which shows severely reduced LV ejection fraction which has confirmed by official echocardiogram which is consistent with severely reduced LV ejection fraction with multiple wall motion abnormality which could be seen in his stress-induced cardiomyopathy. Acute coronary syndrome or myocardial infarction is less likely given multiple different coronary distribution seen on the echocardiogram. Patient vasopressors were then switch to Km-Synephrine and also started on vasopressin. Currently maintaining blood pressure. Oxygenation has maintain a 40% FiO2. Chest x-ray consistent with bilateral aspiration pneumonia question ARDS. Patient is currently on Precedex excellent response to painful stimulants. No other history is obtainable from the patient accept from the chart. No arrhythmias noted. Troponins elevated in the 1600 range Review of Systems 2 Review of Systems: Yes unobtainable due to endotracheal tube PMFSH Past Medical History Medical History Tremor Mild intermittent asthma Coronary artery disease Schizoaffective disorder HTN (hypertension) Heme + stool Family History Family History Unknown No problems noted. Mother Colon cancer Surgical History Surgical History History of esophagogastroduodenoscopy (EGD) Hx of colonoscopy Social History Social History Household Members: Other Household Members Other:: [facility] Housing: House Housing Other:: prison. Are you a primary pet care associate to a significant other at home: No Do you presently have visiting nurse or other home services: No Alcohol intake: never Patient Tobacco Use Status: Former Tobacco user service: No Current occupational status: disabled Meds Allergies Allergy/AdvReac Type Severity Reaction Status Date / Time Penicillins [PENICILLINS] Allergy Unknown EYES GET Verified 04/25/24 11:56 RED latex Allergy Unknown Verified 02/20/24 16:36 Active Medications: Current Medications Acetaminophen (Acetaminophen 325 Mg Tablet) 650 mg PO Q6H PRN PRN Reason: Pain, Mild 1-3,fever,headache Acetaminophen (Acetaminophen Supp 650 Mg Supp.Rect) 650 mg WA Q6H PRN PRN Reason: Fever >101 Last Admin: 05/03/24 16:31 Dose: 650 mg Albuterol Sulfate (Albuterol Sulfate 90 Mcg 8 Gm Inhaler) 2 puff INHALE Q6H PRN PRN Reason: Wheezing Albuterol Sulfate (Albuterol Sulfate (0.083%) 2.5 Mg/3 Ml Vial.Neb) 2.5 mg INHALE ONCE PRN PRN Reason: Shortness of Breath/Wheezing Last Admin: 05/02/24 03:47 Dose: 2.5 mg Albuterol/Ipratropium (Albuterol/Iprat 2.5/0.5mg 3 Ml Ampul.Neb) 3 ml INHALE RQ4H WHILE AWAKE [facility] Last Admin: 05/03/24 11:30 Dose: 3 ml Chlorhexidine Gluconate (Chlorhexidine Gluc Oral Rinse 15 Ml Mouthwash) 15 ml BUCCAL TID YAJAIRA Last Admin: 05/03/24 14:28 Dose: 15 ml Dextrose (Dextrose 50 % 25 Gm/50 Ml Syringe) 25 gm IVPUSH Q15M PRN; Protocol PRN Reason: per Hypoglycemia Standing Ord. Enoxaparin Sodium (Enoxaparin Sodium 40 Mg/0.4 Ml Syringe) 40 mg SUBCUT Q24H [facility] Last Admin: 05/03/24 13:25 Dose: 40 mg Finasteride (Finasteride 5 Mg Tablet) 5 mg PO DAILY [facility] Last Admin: 05/02/24 12:21 Dose: Not Given Furosemide (Furosemide 100 Mg/10 Ml Vial) 80 mg IVPUSH Q12H YAJAIRA; Protocol Last Admin: 05/03/24 14:28 Dose: 80 mg Glucose (Glucose Gel 15 Gm Gel..Gram.) 15 gm PO Q15M PRN; Protocol PRN Reason: per Hypoglycemia Standing Ord. Piperacillin Sod/Tazobactam (Sod 4.5 gm/ Sodium Chloride) 100 mls @ 200 mls/hr IV Q6H YAJAIRA Last Admin: 05/03/24 16:31 Dose: 200 mls/hr Dexmedetomidine HCl (Precedex) 400 mcg in 100 mls @ 0 mls/hr IVCONT .Q0M YAJAIRA; Protocol Last Admin: 05/03/24 16:32 Dose: 1 mcg/kg/hr, 20.13 mls/hr Vasopressin (Vasostrict) 20 unit in 100 mls @ 12 mls/hr IVCONT .Q8H20M YAJAIRA; Protocol Last Admin: 05/03/24 10:42 Dose: 0.04 unit/min, 12 mls/hr Propofol (Diprivan) 1,000 mg in 100 mls @ 0 mls/hr IVCONT .Q0M YAJAIRA; Protocol Last Titration: 05/02/24 22:32 Dose: Infused Norepinephrine Bitartrate (Levophed) 32 mg in 250 mls @ 0 mls/hr IVCONT .Q0M YAJAIRA; Protocol Last Titration: 05/03/24 14:34 Dose: 0 mcg/kg/min, 0 mls/hr Phenylephrine HCl 100 mg/ (Sodium Chloride) 260 mls @ 0 mls/hr IVCONT .Q0M YAJAIRA; Protocol Last Titration: 05/03/24 14:46 Dose: 3 mcg/kg/min, 29.58 mls/hr Insulin Human Lispro (Insulin Lispro 100 Unit/Ml 3 Ml Vial) 0 unit SUBCUT Q6H YAJAIRA; Protocol Last Admin: 05/03/24 11:13 Dose: Not Given Loperamide HCl (Loperamide Hcl 2 Mg Capsule) 2 mg PO Q4H PRN PRN Reason: Diarrhea Naloxone HCl (Naloxone Hcl 0.4 Mg/Ml Vial) 0.04 mg IVPUSH Q5M PRN PRN Reason: Excessive sedation or RR < 8 Olanzapine (Olanzapine 10 Mg Tablet) 20 mg PO BEDTIME [facility] Last Admin: 05/01/24 20:43 Dose: 20 mg Ondansetron HCl (Ondansetron Hcl 4 Mg/2 Ml Vial) 4 mg IVPUSH Q8H PRN PRN Reason: Nausea and Vomiting Last Admin: 04/29/24 20:36 Dose: 4 mg Pantoprazole Sodium (Pantoprazole Sodium 40 Mg/10 Ml Vial) 40 mg IVPUSH BID@0630,1630 [facility] Last Admin: 05/03/24 16:30 Dose: 40 mg Polyethylene Glycol (Polyethylene Glycol 3350 17 Gm Powd.Pack) 17 gm PO DAILY [facility] Last Admin: 05/02/24 12:22 Dose: Not Given Prednisolone Acetate (Prednisolone Acetate 1 % Oph Susp 5 Ml Drpbtl) 1 drop EYE-LEFT DAILY [facility] Last Admin: 05/03/24 08:00 Dose: 1 drop Sodium Chloride (0.9 % Sodium Chloride Flush 3 Ml Syringe) 3 ml IVFLUSH QSHIFT [facility] Last Admin: 05/03/24 16:31 Dose: 3 ml Sucralfate (Sucralfate Oral Suspension 1 Gm/10 Ml Oral.Susp) 1 gm PO QIDACHS [facility] Last Admin: 05/02/24 13:51 Dose: Not Given Tamsulosin HCl (Tamsulosin Hcl 0.4 Mg Capsule) 0.8 mg PO DAILY [facility] Last Admin: 05/02/24 12:20 Dose: Not Given Home Medications ?Medication ?Instructions ?Recorded ?Confirmed ?Last Taken ?Type atorvastatin 20 mg tablet 20 mg PO DAILY 10/11/20 04/25/24 12/14/23 History olanzapine 20 mg tablet 20 mg PO BEDTIME 10/11/20 04/25/24 Unknown History albuterol sulfate 90 mcg/actuation 2 puff inhalation Q6H PRN Wheezing 12/20/20 04/25/24 Unknown History aerosol inhaler cetirizine 10 mg tablet 10 mg PO BEDTIME 12/20/20 04/25/24 Unknown History fluticasone propionate 50 2 spray intranasal DAILY 12/20/20 04/25/24 12/29/23 History mcg/actuation nasal spray,suspension gabapentin 300 mg capsule 300 mg PO TID PRN nerve pain 11/13/23 04/25/24 12/29/23 History acetaminophen 325 mg tablet 650 mg PO Q8H PRN pain 12/08/23 04/25/24 Unknown History camphor 3.1 %-methyl salicylate 10 3.1 patch topical BID 12/08/23 04/25/24 Unknown History %-menthol 6 % topical patch (Salonpas) carvedilol 12.5 mg tablet 12.5 mg PO BID 12/08/23 04/25/24 12/29/23 History cholecalciferol (vitamin D3) 50 50 mcg PO DAILY 12/08/23 04/25/24 12/29/23 History mcg (2,000 unit) capsule ferrous sulfate 325 mg (65 mg 325 mg PO MOWEFR 12/08/23 04/25/24 Unknown History iron) tablet finasteride 5 mg tablet 5 mg PO DAILY 12/08/23 04/25/24 Unknown History prednisolone acetate 1 % eye 1 drp ophthalmic-Left DAILY 12/08/23 04/26/24 Unknown History drops,suspension tamsulosin 0.4 mg capsule 0.8 mg PO DAILY 12/08/23 04/25/24 Unknown History fluticasone furoate 200 1 ea inhalation DAILY 12/29/23 04/25/24 12/29/23 History mcg-vilanterol 25 mcg/dose inhalation powder (Breo Ellipta) benztropine 1 mg tablet 1 mg PO BID 04/25/24 04/25/24 Unknown History melatonin 10 mg capsule 10 mg PO BEDTIME 04/25/24 04/25/24 Unknown History omeprazole 20 mg capsule,delayed 20 mg PO BID@0630,1630 04/25/24 04/25/24 Unknown History release ondansetron 8 mg disintegrating 8 mg PO Q8H PRN Nausea And Vomiting 04/25/24 04/25/24 Unknown History tablet sennosides 8.6 mg tablet (Senokot) 8.6 mg PO BEDTIME PRN Constipation 04/25/24 04/25/24 Unknown History Physical Exam 2 Vital Signs: Vital Signs: Last Vital Signs Temp 102.2 F H 05/03/24 15:00 Pulse 85 05/03/24 16:00 Resp 20 05/03/24 15:00 BP 103/61 05/03/24 16:00 Pulse Ox 98 05/03/24 16:00 O2 Del Method Mechanical Ventil ation 05/03/24 15:00 O2 Flow Rate 15 05/02/24 02:55 FiO2 40 05/03/24 16:00 Oxygen Flow Rate 100 05/02/24 08:00 BMI result Body Mass Index 23.2 Const: General: other (Sedated and intubated) Nutritional Appearance: u nderweight HEENT: Head: Yes normocephalic and Yes atraumatic Neck: Neck: Yes trachea midline, Yes supple and Yes no JVD Resp: Auscultation: bronchovesicular breath sounds Cardio: Jugular venous distension: no JVD Rate: regular rate Rhythm: r egular rhythm Heart sounds: S1 normal heart sound present, S2 normal heart sound present, no click, no gallops and no murmurs GI: Inspection: Yes distended Auscultation: Hypoactive bowel sounds present Skin: General skin exam: no rashes or lesions noted Extrem: General: Yes no clubbing, cyanosis or edema Objective Labs and Meds 05/03/24 04:13 05/03/24 15:44 Lab results: Laboratory Results - last 24 hr 05/02/24 05/02/24 05/02/24 16:32 20:32 23:48 WBC RBC Hgb Hct MCV MCH MCHC RDW Plt Count MPV Immature Gran % (Auto) Neut % (Auto) Lymph % (Auto) [place] % (Auto) Eos % (Auto) Baso % (Auto) Lymph # (Auto) [place] # (Auto) Eos # (Auto) Baso # (Auto) Abs Immat Gran (auto) Absolute Neuts (auto) Absolute Nucleated RBC Nucleated RBC % (auto) Neutrophils % (Manual) Band Neutrophils % Lymphocytes % (Manual) Monocytes % (Manual) Abs Neuts (Manual) Lymphocytes # (Manual) Monocytes # (Manual) Toxic Granulation Dohle Bodies Platelet Estimate Plt Morphology Comment RBC Morphology Polychromasia Tear Drop Cells Ovalocytes Liliya Cells Schistocytes Hold Purple Top SEE NOTE PT 22.6 H D INR 1.9 H O2 Saturation ABG pH at Pt Temp ABG pCO2 at Pt Temp ABG pO2 at Pt Temp ABG HCO3 ABG Base Excess (Actual) Sodium 141 140 Potassium 4.3 D 3.9 Chloride 102 101 Carbon Dioxide 23 22 Anion Gap 20 21 H BUN 11 13 Creatinine 1.24 1.49 H Estim Creat Clear Calc 52.6 43.7 Estimated GFR 57 46 POC Glucose 242 H Random Glucose 208 H 263 H Calcium 8.2 L D 8.0 L Phosphorus 2.8 Magnesium 1.4 L* Total Bilirubin 1.5 H AST 179 H ALT 66 H Alkaline Phosphatase 82 Troponin I High Sens Total Protein 5.7 L Albumin 3.3 L 05/03/24 05/03/24 05/03/24 04:13 04:16 11:13 WBC 21.8 H RBC 3.43 L Hgb 9.4 L Hct 29.6 L MCV 86.3 MCH 27.4 MCHC 31.8 RDW 17.4 H Plt Count 209 MPV 9.1 L Immature Gran % (Auto) Cancelled Neut % (Auto) Cancelled Lymph % (Auto) Cancelled [place] % (Auto) Cancelled Eos % (Auto) Cancelled Baso % (Auto) Cancelled Lymph # (Auto) Cancelled [place] # (Auto) Cancelled Eos # (Auto) Cancelled Baso # (Auto) Cancelled Abs Immat Gran (auto) Cancelled Absolute Neuts (auto) Cancelled Absolute Nucleated RBC 0.040 H Nucleated RBC % (auto) 0.2 Neutrophils % (Manual) 71 Band Neutrophils % 18 H Lymphocytes % (Manual) 6 L Monocytes % (Manual) 5 Abs Neuts (Manual) 19.4 H Lymphocytes # (Manual) 1.3 Monocytes # (Manual) 1.1 Toxic Granulation PRESENT Dohle Bodies PRESENT Platelet Estimate NORMAL Plt Morphology Comment NORMAL RBC Morphology NOTED Polychromasia 1+ (0-2) Tear Drop Cells 1+ (0-2) Ovalocytes 1+ (5-14) Liliya Cells 1+ (0-2) Schistocytes 1+ (0-2) Hold Purple Top PT INR O2 Saturation 97.0 ABG pH at Pt Temp 7.42 ABG pCO2 at Pt Temp 37 ABG pO2 at Pt Temp 88 ABG HCO3 24 ABG Base Excess (Actual) 0.4 Sodium 139 Potassium 4.1 Chloride 101 Carbon Dioxide 21 L Anion Gap 21 H BUN 17 H Creatinine 1.86 H Estim Creat Clear Calc 35.0 Estimated GFR 36 POC Glucose 130 H Random Glucose 218 H Calcium 7.7 L Phosphorus 3.5 Magnesium 2.6 Total Bilirubin 1.8 H AST 3883 H ALT 1144 H Alkaline Phosphatase 78 Troponin I High Sens Total Protein 5.1 L Albumin 3.0 L 05/03/24 05/03/24 11:32 15:44 WBC RBC Hgb Hct MCV MCH MCHC RDW Plt Count MPV Immature Gran % (Auto) Neut % (Auto) Lymph % (Auto) [place] % (Auto) Eos % (Auto) Baso % (Auto) Lymph # (Auto) [place] # (Auto) Eos # (Auto) Baso # (Auto) Abs Immat Gran (auto) Absolute Neuts (auto) Absolute Nucleated RBC Nucleated RBC % (auto) Neutrophils % (Manual) Band Neutrophils % Lymphocytes % (Manual) Monocytes % (Manual) Abs Neuts (Manual) Lymphocytes # (Manual) Monocytes # (Manual) Toxic Granulation Dohle Bodies Platelet Estimate Plt Morphology Comment RBC Morphology Polychromasia Tear Drop Cells Ovalocytes [place] Cells Schistocytes Hold Purple Top PT INR O2 Saturation ABG pH at Pt Temp ABG pCO2 at Pt Temp ABG pO2 at Pt Temp ABG HCO3 ABG Base Excess (Actual) Sodium 139 Potassium 4.2 Chloride 102 Carbon Dioxide 22 Anion Gap 19 BUN 22 H Creatinine 2.34 H Estim Creat Clear Calc 24.8 Estimated GFR 28 POC Glucose Random Glucose 135 H Calcium 7.4 L Phosphorus Magnesium Total Bilirubin 1.9 H AST > 5234 H ALT 1701 H Alkaline Phosphatase Troponin I High Sens 1692.3 H* D Total Protein 5.0 L Albumin 2.9 L EKG shows low voltage in limb leads with septal QS pattern with nonspecific ST T wave changes Imaging Radiologist's impression: Impressions Abdomen Ultrasound 05/03/24 13:24 IMPRESSION: 1. Normal-appearing liver by sonography although there is small volume perihepatic ascites present. No focal lesion. 2. Cholelithiasis, gallbladder wall thickening and edema, with pericholecystic fluid present. Negative sonographic Durbin sign. Findings are equivocal for acute cholecystitis and correlation is recommended. Gallbladder had a similar appearance on the recent CT examination. 3. No biliary ductal dilatation. Electronically signed by: Rachid Coombs MD 05/03/2024 01:53 PM [facility] Assessment and Plan (1) Shock: Status: Acute Shock appears to be multifactorial with evidence of sepsis syndrome with fever and tachycardia and also component of cardiogenic shock with severely reduced LV ejection fraction which is sudden with reduced urine output and worsening creatinine as well as shock liver. Patient also has significant hypoxemic respiratory failure and initially altered mental status. Overall prognosis is poor. At this point time would continue supportive care. Agree with vasopressor therapy to maintain blood pressure and maintain a mean arterial pressure at 65 mm Hg to preserve organ perfusion. Continue ventilatory support to help with hypoxemia and prevent recurrent aspiration. Continue aggressive treatment of his dilated esophagus with aspiration. His troponin elevation consistent with acute LV systolic dysfunction most likely related to stress- induced cardiomyopathy unless likely related to acute coronary syndrome. No need for IV anticoagulation. Given his prior significant cancer with metastases on chemotherapy with current sepsis syndrome unlikely to be a candidate for invasive/interventional cardiac procedure. Will sign of the case. Thank you for allowing me to partake in his care Procedures Date of Service Date of Service: 05/03/24 Arterial Line Size (Gauge): 20
[2024-05-03 17:22] LABS: Glucose, Whole Blood 101 mg/dL (60-115)
[2024-05-03 17:28] LABS: Alkaline Phosphatase 76 U/L (39-117)
--- NOTE | 2024-05-03 17:45 | W.MHC.ACPN ---
Advanced Care Planning Note Advanced Care Planning Note Discussed with: family member(s) Time spent (in minutes): 15 Narrative: Tried calling his healthcare proxy his brother Deion Deal to give an update about the patient at the number noted in the computer, as well his intermediate manager care [phone] multiple times but it states the phone number does not exist. The other number listed in the system is for his significant other Jose Shirley at [phone] who did not slate picker the phone every single time I called him. We will continue to get in contact with his family Problems Discussed (1) Shock:
[2024-05-03 19:44] LABS: Troponin-I High Sensitivity 2479.3 ng/L (<3.5-35.0)
[2024-05-03 20:28] LABS: Hematocrit 28.9 % (42.0-52.0); Hemoglobin 9.4 g/dl (14.0-18.0); Mean Corpuscular HGB Conc 32.5 g/dl (31.0-36.0); Mean Corpuscular Hemoglobin 27.8 pg (27.0-33.0); Mean Corpuscular Volume 85.5 fL (80.0-98.0); Mean Platelet Volume 9.6 fL (9.4-12.4); NRBC Pct Auto 0.3 /100WBC (0.0-0.2); Platelet Count 160 X10*3/uL (160-400); Red Blood Count 3.38 X10*6/uL (4.60-5.80); Red Cell Distribution Width 18.2 % (11.0-16.0); White Blood Count 24.3 X10*3/uL (4.8-10.8)
[2024-05-03 20:35] LABS: INTERNATIONAL NORM RATIO 3.7 (0.9-1.1); Prothrombin Time 43.2 SEC (10.9-12.4)
[2024-05-03] MEDS: dexmedeTOMIDidine HCL/NS 400 MCG/100 ML INFUS..BTL 24.15 MCG IVCONT (20:37)
[2024-05-03] MEDS: Heparin Sodium,Porcine/1/2NS 25,000 UNIT/250 ML IV.SOLN 7.58 UNIT IVCONT (20:41)
[2024-05-03 23:39] LABS: Glucose, Whole Blood 107 mg/dL (60-115)
[2024-05-04] VITALS (56 sets, daily range): BP systolic 99–123; BP diastolic 48–71; PULSE 70–91; RESP 16–32; TEMP 34.8–38.8; O2SAT 94–100; BMI 26.9
[2024-05-04] MEDS: dexmedeTOMIDidine HCL/NS 400 MCG/100 ML INFUS..BTL 24.15 MCG IVCONT ×2 (00:56→09:31)
[2024-05-04] MEDS: Vasopressin 20 UNIT/100 ML INFUS..BTL 12 UNIT IVCONT ×3 (01:23→17:33)
[2024-05-04] MEDS: Furosemide 100 MG/10 ML VIAL 80 MG IVPUSH ×2 (01:25→14:59)
[2024-05-04 03:17] LABS: PTT Heparin Drip 82.8 SEC (53-77.9)
[2024-05-04 03:24] LABS: Troponin-I High Sensitivity 1487.1 ng/L (<3.5-35.0)
[2024-05-04] MEDS: Piperacillin Sodium/Tazobactam 4.5 GM in 0.9 % Sodium Chloride 100 ML IV ×3 (04:40→18:21)
[2024-05-04 04:52] LABS: VBG Base Excess -2.3 mmol/L; VBG HCO3 20 mmol/L (22-26); VBG pCO2 28 mmHg; VBG pH 7.46 (7.32-7.43); VBG pO2 114 mmHg
[2024-05-04 05:08] LABS: Hematocrit 29.8 % (42.0-52.0); Hemoglobin 9.5 g/dl (14.0-18.0); Mean Corpuscular HGB Conc 31.9 g/dl (31.0-36.0); Mean Corpuscular Hemoglobin 27.5 pg (27.0-33.0); Mean Corpuscular Volume 86.1 fL (80.0-98.0); Mean Platelet Volume 9.7 fL (9.4-12.4); NRBC Pct Auto 0.2 /100WBC (0.0-0.2); Platelet Count 155 X10*3/uL (160-400); Red Blood Count 3.46 X10*6/uL (4.60-5.80); Red Cell Distribution Width 18.2 % (11.0-16.0)
[2024-05-04 05:14] LABS: Venous Blood Gas Refer to POC result
[2024-05-04] MEDS: dexmedeTOMIDidine HCL/NS 400 MCG/100 ML INFUS..BTL 20.13 MCG IVCONT ×4 (05:16→23:29)
[2024-05-04 05:24] LABS: Albumin Level 2.8 g/dL (3.5-5.0); Alkaline Phosphatase 86 U/L (39-117); Anion Gap 22 (12-20); Aspartate Amino Transferase 3498 U/L (5-37); Bilirubin Total 1.9 mg/dL (0.0-1.0); Blood Urea Nitrogen 34 mg/dL (9-16); Carbon Dioxide 18 mmol/L (22-29); Chloride 103 mmol/L (96-108); Estimated Glomerular Filt Rate 21; Glucose Random 146 mg/dL (60-115); Magnesium 2.4 mg/dL (1.6-2.6); Phosphorus 3.9 mg/dL (2.7-4.5); Potassium 4.3 mmol/L (3.3-5.1); Sodium 139 mmol/L (135-145); Total Protein 4.8 g/dL (6.5-8.0); Triglycerides 71 mg/dL (<150)
[2024-05-04] MEDS: Pantoprazole Sodium 40 MG/10 ML VIAL IVPUSH ×2 (05:31→15:23)
[2024-05-04 05:32] LABS: Lymphocytes Absolute Manual 1.2 X10*3/uL (1.2-4.9); Lymphocytes Percent Manual 5 % (20-40); Metamyelocytes Absolute 0.2 X10*3/uL; Metamyelocytes Percent 1 %; Monocytes Absolute Manual 0.2 X10*3/uL (0.1-1.2); Monocytes Percent Manual 1 % (2-11)
[2024-05-04 05:33] LABS: Band Neutrophils Percent 13 % (3-5); Neutrophils Absolute Manual 22.3 X10*3/uL (2.0-8.3); Neutrophils Percent Manual 80 % (45-73)
[2024-05-04 05:34] LABS: Microcytosis 1+ (5-14) /OIF; RBC Morphology NOTED
[2024-05-04 05:35] LABS: Alanine Aminotransferase 1559 U/L (0-40); Ovalocytes 1+ (5-14) /OIF; Schistocytes 1+ (0-2) /OIF; Tear Drop Cells 1+ (0-2) /OIF
[2024-05-04 05:36] LABS: Burr Cells 2+ (3-5) /OIF
[2024-05-04 05:37] LABS: Dohle Bodies PRESENT; Platelet Estimate SLIGHTLY DECREASED (NORMAL); Platelet Morphology Comment NORMAL; Toxic Granulation PRESENT
[2024-05-04 06:20] LABS: INTERNATIONAL NORM RATIO 3.5 (0.9-1.1); Prothrombin Time 41.4 SEC (10.9-12.4)
[2024-05-04] MEDS: Phenylephrine HCL 100 MG in 0.9 % Sodium Chloride 250 ML 24.65 MG IVCONT (08:04)
[2024-05-04] MEDS: Albuterol/Iprat 2.5/0.5MG 3 ML AMPUL.NEB INHALE ×4 (08:05→20:31)
[2024-05-04] MEDS: Chlorhexidine Gluc Oral Rinse 15 ML MOUTHWASH BUCCAL ×3 (08:07→20:43)
[2024-05-04] MEDS: 0.9 % Sodium Chloride Flush 3 ML SYRINGE IVFLUSH ×3 (08:07→20:42)
[2024-05-04] MEDS: Calcium Gluconate/NaCl,Iso-Osm 2 GM/100 ML PLAST..BAG IV (08:07)
--- NOTE | 2024-05-04 08:09 | PC.NURSE ---
Assumed care of this patient at 19:00. Patient initially febrile, improved on cooling blanket in the evening. No further fevers overnight. Patient remained intubated and sedated, on precedex, titrated per MAR/RASS. Patient tolerating vent on sedation. OG tube in place with MD orders to NOT use; Remained clamped. ?? 19:42: Patient troponin back critical 2479.3, elevated from previous. Covering SHERLY Rendon made aware. Labs drawn and heparin gtt initiated for ACS per PA. Heparin titrated per PTT/protocol with RN witness. No signs of bleeding noted.? 03:24: Troponin reassess back, still critical at 1487.1. SHERLY King notified. UOP remains low via augustin. PA aware. Pt continues on neosynephrine gtt, titrated per MAR. A-line intact and functioning appropriately.? Calcium gluconate ordered this morning. Not stocked in unit. Pharmacy called and medication requested 06:00 hour.? Safety measures in place. Q2Hr T+R. Please see shift assessments, tasks in worklist, and MAR for full details. Handoff report given at 07:00.
[2024-05-04] MEDS: prednisoLONE Acetate 1 % Oph Susp 5 ML DRPBTL 1 DROP EYE-LEFT (08:35)
--- NOTE | 2024-05-04 09:20 | P.PNCC_ITS ---
Subjective Subjective Date of Service: 05/04/24 Critical Care Time (minutes): 35 Comment: Continues to be critically ill on ventilator support and to vasopressor support Has shock liver and also acute kidney injury Physical Exam 2 Vital Signs: Vital Signs: Last Vital Signs Temp 101.8 F H 05/04/24 09:00 Pulse 90 05/04/24 09:00 Resp 20 05/04/24 09:00 BP 120/69 05/04/24 09:00 Pulse Ox 94 05/04/24 09:00 O2 Del Method Mechanical Ventil ation 05/04/24 09:00 O2 Flow Rate 15 05/02/24 02:55 FiO2 35 05/04/24 09:00 Oxygen Flow Rate 35 05/04/24 08:00 BMI result Body Mass Index 26.9 General: acute distress, ill appearing and tired appearing lying unresponsive in the bed connected to the ventilator Nutritional Appearance: well nourished and normal weight Eyes: appearance normal, both eyes and all related structures; Alignment and Position: alignment normal and position normal Neck: No lymphadenopathy, no thyromegaly Resp: bilateral air entry equal, occasional added sounds present Cardio: Regular rate, regular rhythm; Heart sounds: S1 normal heart sound present and S2 normal heart sound present GI: soft, nontender, no guarding, no hepatosplenomegaly : bladder normal to inspection, bladder normal to palpation, no renal angle tenderness Skin: no rashes or lesions noted and elasticity normal Neuro: No focal deficits, moves all extremities Objective Data Labs 05/04/24 04:40 05/04/24 04:40 Labs: Laboratory Results - last 24 hr 05/03/24 05/03/24 05/03/24 11:13 11:32 15:44 WBC RBC Hgb Hct MCV MCH MCHC RDW Plt Count MPV Immature Gran % (Auto) Neut % (Auto) Lymph % (Auto) Beadle % (Auto) Eos % (Auto) Baso % (Auto) Lymph # (Auto) Beadle # (Auto) Eos # (Auto) Baso # (Auto) Abs Immat Gran (auto) Absolute Neuts (auto) Absolute Nucleated RBC Nucleated RBC % (auto) Neutrophils % (Manual) Band Neutrophils % Lymphocytes % (Manual) Monocytes % (Manual) Metamyelocytes % Abs Neuts (Manual) Lymphocytes # (Manual) Monocytes # (Manual) Metamyelocytes # Toxic Granulation Dohle Bodies Platelet Estimate Plt Morphology Comment RBC Morphology Microcytosis Tear Drop Cells Ovalocytes [place] Cells Schistocytes PT INR aPTT Heparin Protocol VBG pH VBG pCO2 VBG pO2 VBG HCO3 VBG O2 Saturation VBG Base Excess Sodium 139 Potassium 4.2 Chloride 102 Carbon Dioxide 22 Anion Gap 19 BUN 22 H Creatinine 2.34 H Estim Creat Clear Calc 24.8 Estimated GFR 28 POC Glucose 130 H Random Glucose 135 H Calcium 7.4 L Phosphorus Magnesium Total Bilirubin 1.9 H AST > 5234 H ALT 1701 H Alkaline Phosphatase 76 Troponin I High Sens 1692.3 H* D Total Protein 5.0 L Albumin 2.9 L Triglycerides 05/03/24 05/03/24 05/03/24 17:18 19:10 20:21 WBC 24.3 H RBC 3.38 L Hgb 9.4 L Hct 28.9 L MCV 85.5 MCH 27.8 MCHC 32.5 RDW 18.2 H Plt Count 160 MPV 9.6 Immature Gran % (Auto) Neut % (Auto) Lymph % (Auto) Beadle % (Auto) Eos % (Auto) Baso % (Auto) Lymph # (Auto) [place]le # (Auto) Eos # (Auto) Baso # (Auto) Abs Immat Gran (auto) Absolute Neuts (auto) Absolute Nucleated RBC 0.070 H Nucleated RBC % (auto) 0.3 H Neutrophils % (Manual) Band Neutrophils % Lymphocytes % (Manual) Monocytes % (Manual) Metamyelocytes % Abs Neuts (Manual) Lymphocytes # (Manual) Monocytes # (Manual) Metamyelocytes # Toxic Granulation Dohle Bodies Platelet Estimate Plt Morphology Comment RBC Morphology Microcytosis Tear Drop Cells Ovalocytes Liliya Cells Schistocytes PT 43.2 H D INR 3.7 H aPTT Heparin Protocol 62.0 VBG pH VBG pCO2 VBG pO2 VBG HCO3 VBG O2 Saturation VBG Base Excess Sodium Potassium Chloride Carbon Dioxide Anion Gap BUN Creatinine Estim Creat Clear Calc Estimated GFR POC Glucose 101 Random Glucose Calcium Phosphorus Magnesium Total Bilirubin AST ALT Alkaline Phosphatase Troponin I High Sens 2479.3 H* Total Protein Albumin Triglycerides 05/03/24 05/04/24 05/04/24 23:21 02:52 04:40 WBC 24.0 H RBC 3.46 L Hgb 9.5 L Hct 29.8 L MCV 86.1 MCH 27.5 MCHC 31.9 RDW 18.2 H Plt Count 155 L MPV 9.7 Immature Gran % (Auto) Cancelled Neut % (Auto) Cancelled Lymph % (Auto) Cancelled Beadle % (Auto) Cancelled Eos % (Auto) Cancelled Baso % (Auto) Cancelled Lymph # (Auto) Cancelled [place]eadle # (Auto) Cancelled Eos # (Auto) Cancelled Baso # (Auto) Cancelled Abs Immat Gran (auto) Cancelled Absolute Neuts (auto) Cancelled Absolute Nucleated RBC 0.050 H Nucleated RBC % (auto) 0.2 Neutrophils % (Manual) 80 H Band Neutrophils % 13 H Lymphocytes % (Manual) 5 L Monocytes % (Manual) 1 L Metamyelocytes % 1 Abs Neuts (Manual) 22.3 H Lymphocytes # (Manual) 1.2 Monocytes # (Manual) 0.2 Metamyelocytes # 0.2 Toxic Granulation PRESENT Dohle Bodies PRESENT Platelet Estimate SLIGHTLY DECREASED Plt Morphology Comment NORMAL RBC Morphology NOTED Microcytosis 1+ (5-14) Tear Drop Cells 1+ (0-2) Ovalocytes 1+ (5-14) Liliya Cells 2+ (3-5) Schistocytes 1+ (0-2) PT INR aPTT Heparin Protocol 82.8 H D VBG pH VBG pCO2 VBG pO2 VBG HCO3 VBG O2 Saturation VBG Base Excess Sodium 139 Potassium 4.3 Chloride 103 Carbon Dioxide 18 L Anion Gap 22 H BUN 34 H Creatinine 2.90 H Estim Creat Clear Calc 20.0 Estimated GFR 21 POC Glucose 107 Random Glucose 146 H Calcium 7.0 L Phosphorus 3.9 Magnesium 2.4 Total Bilirubin 1.9 H AST 3498 H ALT 1559 H Alkaline Phosphatase 86 Troponin I High Sens 1487.1 H* Total Protein 4.8 L Albumin 2.8 L Triglycerides 71 05/04/24 05/04/24 04:48 05:25 WBC RBC Hgb Hct MCV MCH MCHC RDW Plt Count MPV Immature Gran % (Auto) Neut % (Auto) Lymph % (Auto) Beadle % (Auto) Eos % (Auto) Baso % (Auto) Lymph # (Auto) [place]le # (Auto) Eos # (Auto) Baso # (Auto) Abs Immat Gran (auto) Absolute Neuts (auto) Absolute Nucleated RBC Nucleated RBC % (auto) Neutrophils % (Manual) Band Neutrophils % Lymphocytes % (Manual) Monocytes % (Manual) Metamyelocytes % Abs Neuts (Manual) Lymphocytes # (Manual) Monocytes # (Manual) Metamyelocytes # Toxic Granulation Dohle Bodies Platelet Estimate Plt Morphology Comment RBC Morphology Microcytosis Tear Drop Cells Ovalocytes [place] Cells Schistocytes PT 41.4 H INR 3.5 H aPTT Heparin Protocol VBG pH 7.46 H VBG pCO2 28 VBG pO2 114 VBG HCO3 20 L VBG O2 Saturation 99.0 VBG Base Excess -2.3 Sodium Potassium Chloride Carbon Dioxide Anion Gap BUN Creatinine Estim Creat Clear Calc Estimated GFR POC Glucose Random Glucose Calcium Phosphorus Magnesium Total Bilirubin AST ALT Alkaline Phosphatase Troponin I High Sens Total Protein Albumin Triglycerides Microbiology Microbiology Results: Microbiology 05/02/24 07:09 Blood - Venous Blood Culture - Preliminary No growth after 24 hours. 05/02/24 07:09 Blood - Venous Blood Culture - Preliminary No growth after 24 hours. Progress Note: A&P Assessment and plan (1) Schizoaffective disorder: Status: Acute (2) HTN (hypertension): Status: Acute (3) Acute kidney injury: Status: Acute (4) Hypomagnesemia: Status: Acute (5) Septic shock: Status: Acute (6) Acute on chronic respiratory failure with hypoxia: Status: Acute (7) Acute hypoxemic respiratory failure: Status: Acute (8) Aspiration pneumonia: Status: Acute Plan Neuro: Acute encephalopathy possibly due to metabolic encephalopathy On Precedex for analgesia and anxiolysis. 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 Levophed switched to phenylephrine most recent troponin 1300, which is flat Given multiorgan failure and on ventilator he is a poor candidate for any procedure including cardiac catheterization on a heparin drip Atrial fibrillation: Reverted back to sinus rhythm Can not start on rate-controlling agent due to shock Amiodarone stopped due to liver dysfunction Respiratory: Acute hypoxemic respiratory failure due to bilateral aspiration pneumonia Currently on ventilator support On PC mode FiO2 titrated down to 30%, 16/5, RR 20 Peak pressures and plateau pressures are under the curve Ventilator management bundle with head end elevation, aspiration precaution, chlorhexidine mouthwash, daily awakening trials, daily spontaneous breathing trials GI: Metastatic gastric cancer: Gastric cancer with metastasis to bone currently on FOLFOX and Nivolumab chemotherapy CT abdomen showing thickened gastric antrum, hiatal hernia and dilated esophagus filled with fluids I could see active aspiration of the gastric contents into the airway, continue OG tube to suction. Hold off on tube feeds will start him on PPN will give him bisacodyl and if no response will do enema Shock liver: Sudden rise in AST 3498 down from >5600 yesterday, ALT 1569 possibly from shock liver We will stop amiodarone, we will decrease the PEEP to 5 improving with diuresis Renal: Acute kidney injury: Baseline creatinine normal, creatinine increased to 2.8 secondary to ATN from shock Continues to be oliguric on continuous fluids, urine output 100cc overnight; will continue lasix 80mg BID We will closely monitor I's and O's Avoid nephrotoxic medications Heme: Chronic anemia, closely monitor H&H, transfuse for hemoglobin less than 7 grams/deciliter Endocrine: Blood sugars under control Sliding scale insulin as needed Infectious disease: Pancultures negative so far MRSA nares negative Continue cefepime for antibiotic coverage Musculoskeletal: Decubitus ulcer prevention protocol Lines: Femoral art line Peripheral access Prophylaxis: Lovenox, pantoprazole Patient is critically ill with multiple organ failures including acute encephalopathy, acute hypoxemic respiratory failure, septic shock, acute renal failure, shock liver. Critical care time spent is about 60 minutes on stabilizing this critically ill patient on ventilator management, changing ventilator support, sedation management, vasopressor management, close hemodynamic monitoring, review of charts and images Quality Stroke Does the patient have a stroke diagnosis?: No VTE Prior VTE?: No VTE Risk Level:: Medical - moderate - high VTE Device Contraindication: Treatment Not Indicated VTE Drug Contraindication: N/A - Med Ordered
[2024-05-04 09:54] LABS: PTT Heparin Drip 77.3 SEC (53-77.9)
[2024-05-04 11:05] LABS: MRSA Nasal PCR NEGATIVE (Negative); SA Nasal PCR NEGATIVE (Negative)
--- NOTE | 2024-05-04 11:26 | MHC.CLN ---
F/U PT REQUIRES ALTERNATIVE NUTRITION R/T PROLONGED NPO STATUS PT IS CURRENTLY NPO DISCUSSED AT ROUNDS WITH MD TO START PPN TODAY 05/04/24 DISCUSSED WITH PHARMACY RECOMMEND PPN AT 55ML/HR TO PROVIDE 673KCALS, 132G DEXTROSE, 56G PROTEIN REPLETE LYTES NEEDED PT IS AT RISK FOR RE-FEEDING MONITOR K+, MG, PHOS PLAN FOR 05/05/24 RECOMMEND INCREASING PPN TO 75ML/HR TO PROVIDE 918KCALS, 180G DEXTROSE, 77G PROTEIN REPLETE LYTES NEEDED; CHECK TRIGS RD CAN BE REACHED VIA [employer] CONNECT IF NEEDED
[2024-05-04 12:17] LABS: Glucose, Whole Blood 119 mg/dL (60-115)
[2024-05-04] MEDS: bisacodyL 10 MG SUPP.RECT PR (12:31)
[2024-05-04 13:45] LABS: Troponin-I High Sensitivity 1076.4 ng/L (<3.5-35.0)
--- NOTE | 2024-05-04 14:44 | MHC.CM.PN ---
Attempted to find an active contact number for pt's HCP, Pool Muñiz as the one listed on the HCP is no longer in service. Pt's long-term had no contacts for pt on file as pt has been estranged from his family for several years. Google search revealed several numbers all of which were not in service when CM attempted to call. Pt is critically ill with multi organ impairments in addition to malignancy with a gastric outlet obstruction. Will start PPN today - CM to continue trying to locate HCP
[2024-05-04 17:03] LABS: PTT Heparin Drip 92.7 SEC (53-77.9)
[2024-05-04 17:55] LABS: Glucose, Whole Blood 123 mg/dL (60-115)
--- NOTE | 2024-05-04 19:47 | HO.SKINPHOTO ---
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
[2024-05-04] MEDS: Heparin Sodium,Porcine/1/2NS 25,000 UNIT/250 ML IV.SOLN 5.06 UNIT IVCONT (20:43)
[2024-05-04] MEDS: Parenteral Nutrition 1,320 ML 55 ML IV (20:48)
[2024-05-04 23:22] LABS: Glucose, Whole Blood 173 mg/dL (60-115)
[2024-05-04] MEDS: Insulin Lispro 100 UNIT/ML 3 ML VIAL SUBCUT (23:33)
[2024-05-04 23:53] LABS: PTT Heparin Drip 79.2 SEC (53-77.9)
[2024-05-05] VITALS (43 sets, daily range): BP systolic 103–125; BP diastolic 55–71; PULSE 71–84; RESP 14–29; TEMP 34.6–38.2; O2SAT 95–100; BMI 30.7
[2024-05-05] MEDS: Vasopressin 20 UNIT/100 ML INFUS..BTL 12 UNIT IVCONT ×3 (01:21→17:52)
[2024-05-05] MEDS: Furosemide 100 MG/10 ML VIAL 80 MG IVPUSH ×2 (01:57→14:55)
[2024-05-05] MEDS: Piperacillin Sodium/Tazobactam 4.5 GM in 0.9 % Sodium Chloride 100 ML IV ×3 (02:03→17:59)
[2024-05-05] MEDS: Phenylephrine HCL 100 MG in 0.9 % Sodium Chloride 250 ML 9.86 MG IVCONT ×2 (03:05→20:22)
[2024-05-05] MEDS: dexmedeTOMIDidine HCL/NS 400 MCG/100 ML INFUS..BTL 24.15 MCG IVCONT ×2 (03:23→07:46)
[2024-05-05 05:29] LABS: VBG Base Excess 0.8 mmol/L; VBG HCO3 23 mmol/L (22-26); VBG pCO2 31 mmHg; VBG pH 7.48 (7.32-7.43); VBG pO2 91 mmHg
[2024-05-05 05:38] LABS: Glucose, Whole Blood 218 mg/dL (60-115)
[2024-05-05] MEDS: Insulin Lispro 100 UNIT/ML 3 ML VIAL SUBCUT ×4 (06:10→23:39)
[2024-05-05] MEDS: Pantoprazole Sodium 40 MG/10 ML VIAL IVPUSH (06:10)
[2024-05-05 06:22] LABS: Anion Gap 20 (12-20); Blood Urea Nitrogen 48 mg/dL (9-16); Calcium 7.3 mg/dL (8.4-10.2); Carbon Dioxide 20 mmol/L (22-29); Chloride 99 mmol/L (96-108); Estimated Glomerular Filt Rate 17; Glucose Random 284 mg/dL (60-115); Magnesium 2.4 mg/dL (1.6-2.6); Phosphorus 3.7 mg/dL (2.7-4.5); Potassium 4.2 mmol/L (3.3-5.1); Sodium 135 mmol/L (135-145)
[2024-05-05 06:35] LABS: PTT Heparin Drip 66.9 SEC (53-77.9)
[2024-05-05 06:50] LABS: Venous Blood Gas Refer to POC result
[2024-05-05] MEDS: 0.9 % Sodium Chloride Flush 3 ML SYRINGE IVFLUSH ×3 (07:48→20:17)
[2024-05-05] MEDS: Albuterol/Iprat 2.5/0.5MG 3 ML AMPUL.NEB INHALE ×4 (08:17→19:26)
--- NOTE | 2024-05-05 08:20 | MHC.CLN ---
F/U PT REMAINS NPO STARTED PPN 05/04/24 RECEIVED PPN AT 55ML/HR PROVIDED 673KCALS, 132G DEXTROSE, 56G PROTEIN RECOMMEND INCREASING PPN TO 75ML/HR TO PROVIDE 918KCALS, 180G DEXTROSE, 77G PROTEIN REPLETE LYTES NEEDED; TRIGS NOTED 71 MONITOR K+, MG, PHOS CLOSELY
[2024-05-05] MEDS: Chlorhexidine Gluc Oral Rinse 15 ML MOUTHWASH BUCCAL ×3 (08:23→20:19)
[2024-05-05] MEDS: prednisoLONE Acetate 1 % Oph Susp 5 ML DRPBTL 1 DROP EYE-LEFT (08:24)
--- NOTE | 2024-05-05 09:46 | P.PNCC_ITS ---
Subjective Subjective Date of Service: 05/05/24 Critical Care Time (minutes): 35 Comment: on ventilator on phenylephrine and vasopressin for pressor support on precedex for anxiolysis Physical Exam 2 Vital Signs: Vital Signs: Last Vital Signs Temp 99.7 F 05/05/24 09:00 Pulse 79 05/05/24 09:00 Resp 18 05/05/24 09:00 BP 107/58 L 05/05/24 09:00 Pulse Ox 97 05/05/24 09:00 O2 Del Method Mechanical Ventil ation 05/05/24 09:00 O2 Flow Rate 15 05/02/24 02:55 FiO2 30 05/05/24 09:00 Oxygen Flow Rate 35 05/04/24 08:00 BMI result Body Mass Index 30.7 Objective Data Labs 05/04/24 04:40 05/05/24 05:07 Labs: Laboratory Results - last 24 hr 05/03/24 05/04/24 05/04/24 16:36 09:08 11:30 aPTT Heparin Protocol 77.3 Hold Blue Top VBG pH VBG pCO2 VBG pO2 VBG HCO3 VBG O2 Saturation VBG Base Excess Sodium Potassium Chloride Carbon Dioxide Anion Gap BUN Creatinine Estim Creat Clear Calc Estimated GFR POC Glucose 119 H Random Glucose Calcium Phosphorus Magnesium Troponin I High Sens Nasal Screen MRSA (PCR) NEGATIVE Nasal S. aureus Screen NEGATIVE Nasal MRSA/S.aureus Interp SEE NOTE 05/04/24 05/04/24 05/04/24 12:50 15:15 16:32 aPTT Heparin Protocol 92.7 H Hold Blue Top SEE NOTE VBG pH VBG pCO2 VBG pO2 VBG HCO3 VBG O2 Saturation VBG Base Excess Sodium Potassium Chloride Carbon Dioxide Anion Gap BUN Creatinine Estim Creat Clear Calc Estimated GFR POC Glucose Random Glucose Calcium Phosphorus Magnesium Troponin I High Sens 1076.4 H* Nasal Screen MRSA (PCR) Nasal S. aureus Screen Nasal MRSA/S.aureus Interp 05/04/24 05/04/24 05/04/24 17:52 23:15 23:21 aPTT Heparin Protocol 79.2 H Hold Blue Top VBG pH VBG pCO2 VBG pO2 VBG HCO3 VBG O2 Saturation VBG Base Excess Sodium Potassium Chloride Carbon Dioxide Anion Gap BUN Creatinine Estim Creat Clear Calc Estimated GFR POC Glucose 123 H 173 H Random Glucose Calcium Phosphorus Magnesium Troponin I High Sens Nasal Screen MRSA (PCR) Nasal S. aureus Screen Nasal MRSA/S.aureus Interp 05/05/24 05/05/24 05/05/24 05:07 05:25 05:32 aPTT Heparin Protocol Hold Blue Top VBG pH 7.48 H VBG pCO2 31 VBG pO2 91 VBG HCO3 23 VBG O2 Saturation 98.0 VBG Base Excess 0.8 Sodium 135 Potassium 4.2 Chloride 99 Carbon Dioxide 20 L Anion Gap 20 BUN 48 H Creatinine 3.49 H Estim Creat Clear Calc 19.0 Estimated GFR 17 POC Glucose 218 H Random Glucose 284 H Calcium 7.3 L Phosphorus 3.7 Magnesium 2.4 Troponin I High Sens Nasal Screen MRSA (PCR) Nasal S. aureus Screen Nasal MRSA/S.aureus Interp 05/05/24 05:55 aPTT Heparin Protocol 66.9 Hold Blue Top VBG pH VBG pCO2 VBG pO2 VBG HCO3 VBG O2 Saturation VBG Base Excess Sodium Potassium Chloride Carbon Dioxide Anion Gap BUN Creatinine Estim Creat Clear Calc Estimated GFR POC Glucose Random Glucose Calcium Phosphorus Magnesium Troponin I High Sens Nasal Screen MRSA (PCR) Nasal S. aureus Screen Nasal MRSA/S.aureus Interp Microbiology Microbiology Results: Microbiology 05/02/24 07:09 Blood - Venous Blood Culture - Preliminary No growth after 48 hours. 05/02/24 07:09 Blood - Venous Blood Culture - Preliminary No growth after 48 hours. Progress Note: A&P Assessment and plan (1) Schizoaffective disorder: Status: Acute (2) HTN (hypertension): Status: Acute (3) Coronary artery disease: Status: Acute (4) Acute kidney injury: Status: Acute (5) Acute on chronic respiratory failure with hypoxia: Status: Acute (6) Acute hypoxemic respiratory failure: Status: Acute (7) Aspiration pneumonia: Status: Acute (8) Mild intermittent asthma: Status: Acute (9) SIRS (systemic inflammatory response syndrome): Status: Acute Plan Neuro: Acute encephalopathy possibly due to metabolic encephalopathy On Precedex for analgesia and anxiolysis.Will wean for pressure support trials 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 Levophed switched to phenylephrine most recent troponin 1300, which is flat Given multiorgan failure and on ventilator he is a poor candidate for any procedure including cardiac catheterization on a heparin drip, will stop tomrorrow Atrial fibrillation: Reverted back to sinus rhythm Can not start on rate-controlling agent due to shock Amiodarone stopped due to liver dysfunction Respiratory: Acute hypoxemic respiratory failure due to bilateral aspiration pneumonia Currently on ventilator support On PC mode FiO2 titrated down to 30%, 16/5, RR 20, will place him on pressure support trials for weaning from ventilator Peak pressures and plateau pressures are under the curve Ventilator management bundle with head end elevation, aspiration precaution, chlorhexidine mouthwash, daily awakening trials, daily spontaneous breathing trials GI: Metastatic gastric cancer: Gastric cancer with metastasis to bone currently on FOLFOX and Nivolumab chemotherapy CT abdomen showing thickened gastric antrum, hiatal hernia and dilated esophagus filled with fluids I could see active aspiration of the gastric contents into the airway, continue OG tube to suction. Hold off on tube feeds continue PPN conitnue bisacodyl and poor response to soap sudds enema- poor sphincter tone Shock liver: Sudden rise in AST 3498 down from >5600 yesterday, ALT 1569 possibly from shock liver amiodarone stopped, PEEP to 5 improving with diuresis Renal: Acute kidney injury: Baseline creatinine normal, creatinine increased to 3.8 secondary to ATN from shock urine output 2litre, negative 600cc; will continue lasix 80mg BID We will closely monitor I's and O's Avoid nephrotoxic medications Heme: Chronic anemia, closely monitor H&H, transfuse for hemoglobin less than 7 grams/deciliter Endocrine: Blood sugars under control Sliding scale insulin as needed Infectious disease: Pancultures negative so far MRSA nares negative Continue cefepime for antibiotic coverage Musculoskeletal: Decubitus ulcer prevention protocol Lines: Femoral art line Peripheral access Posada catheter for BPH Prophylaxis: heparin, pantoprazole Quality Stroke Does the patient have a stroke diagnosis?: No VTE Prior VTE?: No VTE Risk Level:: Medical - moderate - high VTE Device Contraindication: Treatment Not Indicated VTE Drug Contraindication: N/A - Med Ordered
[2024-05-05 09:47] LABS: Albumin Level 2.6 g/dL (3.5-5.0)
--- NOTE | 2024-05-05 11:48 | HO.WOUND ---
Wound Consult: Follow up 74yr old?male admitted [facility] [place] [facility] - See progress notes and H&P for detailed history.? Wound consult placed for Forehead device related pressure injury.? Patient is intubated and remains in ICU level of care. Forehead Etiology: ??Literature Professor Related Pressure Injury - Deep Tissue Injury Wound Bed: nonblanchable purple maroon intact tissue Drainage / Odor: None Edges: ?defined [place] wound: ?intact No Induration, Fluctuance or Warmth noted Goals of Treatment: ? Device has since been off loaded - recommend continued off loading of site. Left Forehead - Continue to off load pressure from the site. Ensure all other devices are removed for skin assessment and sites rotated appropriately. If [place] Maxfast device securement wrap is used ensure pressure is not directed over device - only use when clinically indicated. To ensure better adhesive of the Forehead probe, cleanse skin dry well and apply skin prep prior to application. Detailed from last assessment: Buttock sacrum and coccyx assessed - no redness no skin integrity issues noted. There is a foam dressing in place at this time. The patient anatomy creates a pocket at the sacrum and there is concern for the foam to trap moisture. The foam was reapplied and placed with in the crease / pocket - direct care team informed to remove if foam dressing seems to continue to create pocket that could lead to skin break down. At this time no pigmentation changes noted. Patient has wedges in use with Q2hr turns, Heel protector boots in use as well needs SANJEEV pump direct care team will work to obtain. No topical recommendation needed at this time a side from SANEJEV pump application to mattress. Recommendations: 1. Turn and Reposition every 2 hours and as needed for patient comfort.? Use pillows or wedges to support off loading positions. 2. Off Load all bony prominences with use of pillows and heel boots if needed.? Apply Preventative foams where needed. ? 3. Monitor for incontinence and moisture control, use barrier creams when needed for prevention and treatment. 4. Provide adequate and supplemental nutrition.? 5. Order low air loss mattress. 6. When applicable maintain blood glucose levels per Providers order. 7. Sacrum - Assess foam when in use - if trapping moisture remove and use barrier cream in stead. Re-consult wound care Nurse for wound deterioration or wound changes.
[2024-05-05 12:14] LABS: Glucose, Whole Blood 237 mg/dL (60-115)
--- NOTE | 2024-05-05 15:01 | MHC.CM.PN ---
Pt continues on pressors and vent support: CM unable to contact pt's brother/HCP Pool by phone: all numbers listed or found via web search not in service. Per group art supervisor, pt has been estranged from family and has no contacts listed at senior care. Will discuss possible certified letter w/director of CM.
[2024-05-05 17:56] LABS: Glucose, Whole Blood 230 mg/dL (60-115)
--- NOTE | 2024-05-05 19:23 | PC.NURSE ---
Patient weaned off Precedex as in MAY, off Precedex and placed on PS this afternoon, tachypneic at first and decreased to normal, tolerating well, PPN infusing as ordered, POC covered with Lispro as ordered, see MAR, cooling blanket in use this afternoon as patient temp increased to 100.8, restraints as ordered, continues to be on Km and Vasopressin, see MAR.
[2024-05-05] MEDS: Heparin Sodium,Porcine/1/2NS 25,000 UNIT/250 ML IV.SOLN 3.79 UNIT IVCONT (20:01)
[2024-05-05] MEDS: Parenteral Nutrition 1,800 ML 75 ML IV (20:15)
[2024-05-05] MEDS: dexmedeTOMIDidine HCL/NS 400 MCG/100 ML INFUS..BTL 20.13 MCG IVCONT (21:34)
[2024-05-05 23:23] LABS: Glucose, Whole Blood 275 mg/dL (60-115)
[2024-05-06] VITALS (62 sets, daily range): BP systolic 84–135; BP diastolic 45–80; PULSE 56–808; RESP 2–87; TEMP 34.6–39; O2SAT 92–100
[2024-05-06] MEDS: dexmedeTOMIDidine HCL/NS 400 MCG/100 ML INFUS..BTL 16.1 MCG IVCONT (02:19)
[2024-05-06] MEDS: Piperacillin Sodium/Tazobactam 4.5 GM in 0.9 % Sodium Chloride 100 ML IV ×2 (02:36→13:58)
[2024-05-06] MEDS: Furosemide 100 MG/10 ML VIAL 80 MG IVPUSH (02:38)
[2024-05-06 05:18] LABS: ABG Base Excess 2.8 mmol/L; ABG HCO3 26 mmol/L (22-26); ABG pCO2 37 mmHg (32-45); ABG pH 7.45 (7.35-7.45); ABG pO2 82 mmHg (83-108)
[2024-05-06 05:43] LABS: Hematocrit 30.1 % (42.0-52.0); Hemoglobin 9.6 g/dl (14.0-18.0); Mean Corpuscular HGB Conc 31.9 g/dl (31.0-36.0); Mean Corpuscular Hemoglobin 27.2 pg (27.0-33.0); Mean Corpuscular Volume 85.3 fL (80.0-98.0); Mean Platelet Volume 10.6 fL (9.4-12.4); NRBC Pct Auto 0.5 /100WBC (0.0-0.2); Platelet Count 163 X10*3/uL (160-400); Red Blood Count 3.53 X10*6/uL (4.60-5.80); Red Cell Distribution Width 18.7 % (11.0-16.0)
[2024-05-06 05:48] LABS: WBC ABN SCTR FOR CBC 1
[2024-05-06 06:02] LABS: Albumin Level 2.6 g/dL (3.5-5.0); Anion Gap 18 (12-20); Blood Urea Nitrogen 64 mg/dL (9-16); Calcium 7.9 mg/dL (8.4-10.2); Carbon Dioxide 23 mmol/L (22-29); Chloride 99 mmol/L (96-108); Creatinine Clr Calc Pharmacy 19.3; Estimated Glomerular Filt Rate 18; Glucose Random 207 mg/dL (60-115); Magnesium 2.3 mg/dL (1.6-2.6); Phosphorus 2.8 mg/dL (2.7-4.5); Potassium 3.6 mmol/L (3.3-5.1); Sodium 136 mmol/L (135-145)
[2024-05-06 06:19] LABS: ABG Refer to POC result
[2024-05-06 06:22] LABS: Band Neutrophils Percent 5 % (3-5); Basophils Percent Manual 2 % (0-2); Eosinophils Percent Manual 2 % (0-4); Lymphocytes Percent Manual 3 % (20-40); Metamyelocytes Percent 2 %; Monocytes Percent Manual 5 % (2-11); Myelocytes Percent 1 %; Neutrophils Percent Manual 80 % (45-73); Platelet Estimate NORMAL (NORMAL); RBC Morphology NOTED
[2024-05-06 06:23] LABS: Acanthocytes 3+ (>5) /OIF; Burr Cells 2+ (3-5) /OIF; Giant Platelet PRESENT; Large Platelet PRESENT; Ovalocytes 2+ (15-30) /OIF; Platelet Morphology Comment NOTED; Schistocytes 1+ (0-2) /OIF
[2024-05-06 06:24] LABS: Hypochromasia 1+ (5-14) /OIF; Polychromasia 2+ (3-5) /OIF; Toxic Granulation PRESENT
[2024-05-06] MEDS: Insulin Lispro 100 UNIT/ML 3 ML VIAL SUBCUT ×2 (06:24→17:57)
[2024-05-06 06:54] LABS: Triglycerides 76 mg/dL (<150)
[2024-05-06] MEDS: Albuterol/Iprat 2.5/0.5MG 3 ML AMPUL.NEB INHALE ×4 (07:26→19:10)
[2024-05-06 08:12] LABS: Basophils Abs Manual 0.5 X10*3/uL (0.0-0.2); Eosinophils Absolute Manual 0.5 X10*3/uL (0.0-0.4); Lymphocytes Absolute Manual 0.7 X10*3/uL (1.2-4.9); Metamyelocytes Absolute 0.5 X10*3/uL; Monocytes Absolute Manual 1.1 X10*3/uL (0.1-1.2); Myelocytes Absolute 0.2 X10*/uL; Neutrophils Absolute Manual 19.2 X10*3/uL (2.0-8.3); White Blood Count 22.6 X10*3/uL (4.8-10.8)
[2024-05-06] MEDS: 0.9 % Sodium Chloride Flush 3 ML SYRINGE IVFLUSH ×3 (09:00→20:35)
[2024-05-06] MEDS: Chlorhexidine Gluc Oral Rinse 15 ML MOUTHWASH BUCCAL ×3 (09:00→20:35)
[2024-05-06] MEDS: prednisoLONE Acetate 1 % Oph Susp 5 ML DRPBTL 1 DROP EYE-LEFT (09:00)
--- NOTE | 2024-05-06 09:26 | PM.CCPN ---
Subjective Subjective Date of Service: 05/06/24 Critical Care Time (minutes): 35 Comment: Continues to be on ventilator support On phenylephrine and vasopressin for vasopressor support Physical Exam Vital Signs: Vital Signs: Last Vital Signs Temp 99.5 F 05/06/24 08:30 Pulse 85 05/06/24 08:30 Resp 23 H 05/06/24 08:30 BP 116/66 05/06/24 08:30 Pulse Ox 96 05/06/24 08:30 O2 Del Method Mechanical Ventil ation 05/06/24 08:30 O2 Flow Rate 15 05/02/24 02:55 FiO2 30 05/06/24 08:30 Oxygen Flow Rate 35 05/04/24 08:00 BMI result Body Mass Index 30.0 General: Elderly male in acute distress, ill appearing and tired appearing Nutritional Appearance: well nourished and overweight Eyes: appearance normal, both eyes and all related structures; Alignment and Position: alignment normal and position normal Neck: No lymphadenopathy, no thyromegaly Resp: bilateral air entry equal, crackles heard in lung bases Cardio: Regular rate, regular rhythm; Heart sounds: S1 normal heart sound present and S2 normal heart sound present GI: soft, nontender, no guarding, no hepatosplenomegaly : bladder normal to inspection, bladder normal to palpation, no renal angle tenderness Skin: no rashes or lesions noted and elasticity normal Neuro: Follows commands, moves all extremities Objective Data Labs 05/06/24 05:25 05/06/24 05:25 Labs: Laboratory Results - last 24 hr 05/05/24 05/05/24 05/05/24 05:07 12:01 12:46 WBC RBC Hgb Hct MCV MCH MCHC RDW Plt Count MPV Immature Gran % (Auto) Neut % (Auto) Lymph % (Auto) [place] % (Auto) Eos % (Auto) Baso % (Auto) Lymph # (Auto) [place] # (Auto) Eos # (Auto) Baso # (Auto) Abs Immat Gran (auto) Absolute Neuts (auto) Absolute Nucleated RBC Nucleated RBC % (auto) Neutrophils % (Manual) Band Neutrophils % Lymphocytes % (Manual) Monocytes % (Manual) Eosinophils % (Manual) Basophils % (Manual) Metamyelocytes % Myelocytes % Abs Neuts (Manual) Lymphocytes # (Manual) Monocytes # (Manual) Eosinophils # (Manual) Basophils # (Manual) Metamyelocytes # Myelocytes # Toxic Granulation Platelet Estimate Large Platelets Giant Platelets Plt Morphology Comment RBC Morphology Polychromasia Hypochromasia Ovalocytes [place] Cells Acanthocytes (Spur) Schistocytes aPTT Heparin Protocol 58.0 O2 Saturation ABG pH at Pt Temp ABG pCO2 at Pt Temp ABG pO2 at Pt Temp ABG HCO3 ABG Base Excess (Actual) Sodium Potassium Chloride Carbon Dioxide Anion Gap BUN Creatinine Estim Creat Clear Calc Estimated GFR POC Glucose 237 H Random Glucose Calcium Phosphorus Magnesium Albumin 2.6 L Triglycerides 05/05/24 05/05/24 05/06/24 17:48 23:19 05:14 WBC RBC Hgb Hct MCV MCH MCHC RDW Plt Count MPV Immature Gran % (Auto) Neut % (Auto) Lymph % (Auto) [place] % (Auto) Eos % (Auto) Baso % (Auto) Lymph # (Auto) [place] # (Auto) Eos # (Auto) Baso # (Auto) Abs Immat Gran (auto) Absolute Neuts (auto) Absolute Nucleated RBC Nucleated RBC % (auto) Neutrophils % (Manual) Band Neutrophils % Lymphocytes % (Manual) Monocytes % (Manual) Eosinophils % (Manual) Basophils % (Manual) Metamyelocytes % Myelocytes % Abs Neuts (Manual) Lymphocytes # (Manual) Monocytes # (Manual) Eosinophils # (Manual) Basophils # (Manual) Metamyelocytes # Myelocytes # Toxic Granulation Platelet Estimate Large Platelets Giant Platelets Plt Morphology Comment RBC Morphology Polychromasia Hypochromasia Ovalocytes [place] Cells Acanthocytes (Spur) Schistocytes aPTT Heparin Protocol O2 Saturation 96.0 ABG pH at Pt Temp 7.45 ABG pCO2 at Pt Temp 37 ABG pO2 at Pt Temp 82 L ABG HCO3 26 ABG Base Excess (Actual) 2.8 Sodium Potassium Chloride Carbon Dioxide Anion Gap BUN Creatinine Estim Creat Clear Calc Estimated GFR POC Glucose 230 H 275 H Random Glucose Calcium Phosphorus Magnesium Albumin Triglycerides 05/06/24 05:25 WBC 22.6 H RBC 3.53 L Hgb 9.6 L Hct 30.1 L MCV 85.3 MCH 27.2 MCHC 31.9 RDW 18.7 H Plt Count 163 MPV 10.6 Immature Gran % (Auto) Cancelled Neut % (Auto) Cancelled Lymph % (Auto) Cancelled [place] % (Auto) Cancelled Eos % (Auto) Cancelled Baso % (Auto) Cancelled Lymph # (Auto) Cancelled [place] # (Auto) Cancelled Eos # (Auto) Cancelled Baso # (Auto) Cancelled Abs Immat Gran (auto) Cancelled Absolute Neuts (auto) Cancelled Absolute Nucleated RBC 0.110 H Nucleated RBC % (auto) 0.5 H Neutrophils % (Manual) 80 H Band Neutrophils % 5 Lymphocytes % (Manual) 3 L Monocytes % (Manual) 5 Eosinophils % (Manual) 2 Basophils % (Manual) 2 Metamyelocytes % 2 Myelocytes % 1 Abs Neuts (Manual) 19.2 H Lymphocytes # (Manual) 0.7 L Monocytes # (Manual) 1.1 Eosinophils # (Manual) 0.5 H Basophils # (Manual) 0.5 H Metamyelocytes # 0.5 Myelocytes # 0.2 Toxic Granulation PRESENT Platelet Estimate NORMAL Large Platelets PRESENT Giant Platelets PRESENT Plt Morphology Comment NOTED RBC Morphology NOTED Polychromasia 2+ (3-5) Hypochromasia 1+ (5-14) Ovalocytes 2+ (15-30) [place] Cells 2+ (3-5) Acanthocytes ([place]) 3+ (>5) Schistocytes 1+ (0-2) aPTT Heparin Protocol 53.0 O2 Saturation ABG pH at Pt Temp ABG pCO2 at Pt Temp ABG pO2 at Pt Temp ABG HCO3 ABG Base Excess (Actual) Sodium 136 Potassium 3.6 Chloride 99 Carbon Dioxide 23 Anion Gap 18 BUN 64 H Creatinine 3.40 H Estim Creat Clear Calc 19.3 Estimated GFR 18 POC Glucose Random Glucose 207 H Calcium 7.9 L D Phosphorus 2.8 Magnesium 2.3 Albumin 2.6 L Triglycerides 76 Microbiology Microbiology Results: Microbiology 05/02/24 07:09 Blood - Venous Blood Culture - Preliminary No growth after 48 hours. 05/02/24 07:09 Blood - Venous Blood Culture - Preliminary No growth after 48 hours. Progress Note: A&P Assessment and plan (1) Schizoaffective disorder: Status: Acute (2) HTN (hypertension): Status: Acute (3) Coronary artery disease: Status: Acute (4) Acute kidney injury: Status: Acute (5) Acute on chronic respiratory failure with hypoxia: Status: Acute (6) Acute hypoxemic respiratory failure: Status: Acute (7) Aspiration pneumonia: Status: Acute (8) Mild intermittent asthma: Status: Acute Plan Neuro: Acute encephalopathy possibly due to metabolic encephalopathy tapered off precedex this morning to wean from pressure support trials 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 Levophed switched to phenylephrine most recent troponin 1300, which is flat Given multiorgan failure and on ventilator he is a poor candidate for any procedure including cardiac catheterization Atrial fibrillation: Reverted back to sinus rhythm Can not start on rate-controlling agent due to shock Amiodarone stopped due to liver dysfunction Respiratory: Acute hypoxemic respiratory failure due to bilateral aspiration pneumonia Currently on ventilator support On PC mode FiO2 titrated down to 30%, 16/5, RR 20, on pressure support trials all night long failed weaning trials due to tachypnea. Peak pressures and plateau pressures are under the curve Ventilator management bundle with head end elevation, aspiration precaution, chlorhexidine mouthwash, daily awakening trials, daily spontaneous breathing trials GI: Metastatic gastric cancer: Gastric cancer with metastasis to bone currently on FOLFOX and Nivolumab chemotherapy CT abdomen showing thickened gastric antrum, hiatal hernia and dilated esophagus filled with fluids I could see active aspiration of the gastric contents into the airway, continue OG tube to suction. Hold off on tube feeds continue PPN conitnue bisacodyl and poor response to soap sudds enema- poor sphincter tone Shock liver: Sudden rise in AST 3498 down from >5600 yesterday, ALT 1569 possibly from shock liver amiodarone stopped, PEEP to 5 improving with diuresis Renal: Acute kidney injury: due to ATN from shock; creatinine improving, down to 3.4 this morning urine output 2litre, negative 2700cc; will cut lasix to 80mg daily We will closely monitor I's and O's Avoid nephrotoxic medications Heme: Chronic anemia, closely monitor H&H, transfuse for hemoglobin less than 7 grams/deciliter Endocrine: Blood sugars under control Sliding scale insulin as needed Infectious disease: Pancultures negative so far MRSA nares negative Continue cefepime for antibiotic coverage Musculoskeletal: Decubitus ulcer prevention protocol Lines: Femoral art line Peripheral access Posada catheter for BPH Prophylaxis: heparin, pantoprazole Quality Stroke Does the patient have a stroke diagnosis?: No VTE Prior VTE?: No VTE Risk Level:: Medical - moderate - high VTE Device Contraindication: Treatment Not Indicated VTE Drug Contraindication: N/A - Med Ordered
[2024-05-06] MEDS: Pantoprazole Sodium 40 MG/10 ML VIAL IVPUSH (10:30)
[2024-05-06] MEDS: Phenylephrine HCL 100 MG in 0.9 % Sodium Chloride 250 ML 29.58 MG IVCONT (10:42)
[2024-05-06 10:55] LABS: Alanine Aminotransferase 725 U/L (0-40); Albumin Level 2.7 g/dL (3.5-5.0); Alkaline Phosphatase 238 U/L (39-117); Aspartate Amino Transferase 454 U/L (5-37); Bilirubin Direct 0.8 mg/dL (0.0-0.5); Bilirubin Total 1.3 mg/dL (0.0-1.0); Total Protein 5.2 g/dL (6.5-8.0)
[2024-05-06 11:31] LABS: Glucose, Whole Blood 175 mg/dL (60-115)
--- NOTE | 2024-05-06 11:46 | MHC.CLN ---
F/U PT REMAINS NPO WITH PPN. CONTINUES ON VENT SUPPORT. REVIEWED LABS. TRIGS=76. COMMUNICATED WITH PHARMACY. RECOMMEND INCREASING PPN TO MAX GOAL RATE 100 ML/HR ADD 63 G LIPIDS TO PROVIDE 1854 KCALS (30 KCALS/KG IBW), 240 G DEXTROSE, 102 G PROTEIN (1.6 G/KG IBW). REPLETE LYTES NEEDED. MONITOR K+, MG, PHOS CLOSELY. PATIENT WITH GASTRIC CANCER WITH METS TO BONE. WILL CONTINUE TO REQUIRE NUTRITION SUPPORT .
[2024-05-06 12:08] LABS: Glucose, Whole Blood 159 mg/dL (60-115)
[2024-05-06] MEDS: Vasopressin 20 UNIT/100 ML INFUS..BTL 12 UNIT IVCONT (13:53)
[2024-05-06] MEDS: 0.9 % Sodium Chloride 1,000 ML 999 ML IV (13:58)
[2024-05-06] MEDS: dexmedeTOMIDidine HCL/NS 400 MCG/100 ML INFUS..BTL 10.06 MCG IVCONT (14:46)
[2024-05-06] MEDS: Phenylephrine HCL 100 MG in 0.9 % Sodium Chloride 250 ML 34.51 MG IVCONT (17:32)
[2024-05-06] MEDS: dexmedeTOMIDidine HCL/NS 400 MCG/100 ML INFUS..BTL 26.16 MCG IVCONT (18:43)
--- NOTE | 2024-05-06 19:38 | PC.NURSE ---
Patient taken off Precedex this morning for sedation vacation, switched to pressure support and tolerated well most of the day, when decreasing pressure support patient became restless and tachypnic, precedex started at half starting dose as per MD and titrated up, see MAY. switched back to ACVC. Phenilephrine titrated as per MAY for hypotension, patient re started on Vasopressin and BP stabilized. hypotension and decreased SPo2% noted with repositioning. Moderated loose brown/green BM noted.
[2024-05-06] MEDS: Heparin Sodium,Porcine/1/2NS 25,000 UNIT/250 ML IV.SOLN 3.79 UNIT IVCONT (20:30)
[2024-05-06 20:36] LABS: ABG Base Excess 2.5 mmol/L; ABG HCO3 25 mmol/L (22-26); ABG pCO2 33 mmHg (32-45); ABG pH 7.48 (7.35-7.45); ABG pO2 87 mmHg (83-108)
[2024-05-06] MEDS: Parenteral Nutrition 2,400 ML 100 ML IV (20:37)
[2024-05-06] MEDS: dexmedeTOMIDidine HCL/NS 400 MCG/100 ML INFUS..BTL 30.19 MCG IVCONT (21:23)
[2024-05-06] MEDS: Vasopressin 20 UNIT/100 ML INFUS..BTL 6 UNIT IVCONT (21:35)
[2024-05-06 23:48] LABS: ABG Refer to POC result
[2024-05-06 23:50] LABS: Glucose, Whole Blood 212 mg/dL (60-115)
[2024-05-07] VITALS (45 sets, daily range): BP systolic 88–173; BP diastolic 42–86; PULSE 59–94; RESP 15–35; TEMP 35–39.2; O2SAT 90–100; BMI 29.1
[2024-05-07 00:28] LABS: Glucose, Whole Blood 319 mg/dL (60-115)
[2024-05-07] MEDS: dexmedeTOMIDidine HCL/NS 400 MCG/100 ML INFUS..BTL 30.19 MCG IVCONT ×4 (00:34→10:13)
[2024-05-07] MEDS: Insulin Lispro 100 UNIT/ML 3 ML VIAL SUBCUT ×3 (00:37→17:44)
[2024-05-07] MEDS: Piperacillin Sodium/Tazobactam 4.5 GM in 0.9 % Sodium Chloride 100 ML IV ×2 (02:27→14:38)
[2024-05-07 04:45] LABS: ABG Base Excess 1.4 mmol/L; ABG HCO3 25 mmol/L (22-26); ABG pCO2 36 mmHg (32-45); ABG pH 7.44 (7.35-7.45); ABG pO2 99 mmHg (83-108)
[2024-05-07 04:48] LABS: Hematocrit 29.2 % (42.0-52.0); Hemoglobin 9.3 g/dl (14.0-18.0); Mean Corpuscular HGB Conc 31.8 g/dl (31.0-36.0); Mean Corpuscular Hemoglobin 27.7 pg (27.0-33.0); Mean Corpuscular Volume 86.9 fL (80.0-98.0); Mean Platelet Volume 11.1 fL (9.4-12.4); NRBC Pct Auto 0.3 /100WBC (0.0-0.2); Platelet Count 168 X10*3/uL (160-400); Red Blood Count 3.36 X10*6/uL (4.60-5.80); Red Cell Distribution Width 18.8 % (11.0-16.0); White Blood Count 19.1 X10*3/uL (4.8-10.8)
[2024-05-07 04:50] LABS: ABG Refer to POC result
[2024-05-07 05:09] LABS: Alkaline Phosphatase 245 U/L (39-117)
[2024-05-07 05:11] LABS: Alanine Aminotransferase 468 U/L (0-40); Albumin Level 2.6 g/dL (3.5-5.0); Anion Gap 18 (12-20); Aspartate Amino Transferase 179 U/L (5-37); Bilirubin Total 0.8 mg/dL (0.0-1.0); Blood Urea Nitrogen 77 mg/dL (9-16); Calcium 8.2 mg/dL (8.4-10.2); Carbon Dioxide 22 mmol/L (22-29); Chloride 100 mmol/L (96-108); Creatinine Clr Calc Pharmacy 20.3; Estimated Glomerular Filt Rate 19; Glucose Random 446 mg/dL (60-115); Magnesium 2.3 mg/dL (1.6-2.6); Phosphorus 3.6 mg/dL (2.7-4.5); Potassium 4.1 mmol/L (3.3-5.1); Sodium 136 mmol/L (135-145); Total Protein 5.4 g/dL (6.5-8.0)
[2024-05-07 05:12] LABS: Band Neutrophils Percent 3 % (3-5); Lymphocytes Absolute Manual 0.8 X10*3/uL (1.2-4.9); Lymphocytes Percent Manual 4 % (20-40); Metamyelocytes Absolute 0.2 X10*3/uL; Metamyelocytes Percent 1 %; Monocytes Absolute Manual 0.8 X10*3/uL (0.1-1.2); Monocytes Percent Manual 4 % (2-11); Myelocytes Absolute 0.2 X10*/uL; Myelocytes Percent 1 %; Neutrophils Absolute Manual 17.2 X10*3/uL (2.0-8.3); Neutrophils Percent Manual 87 % (45-73); PTT Heparin Drip 49.7 SEC (53-77.9)
[2024-05-07 05:15] LABS: Ovalocytes 2+ (15-30) /OIF; RBC Morphology NOTED
[2024-05-07 05:16] LABS: Burr Cells 2+ (3-5) /OIF; Polychromasia 2+ (3-5) /OIF; Tear Drop Cells 1+ (0-2) /OIF; Toxic Granulation PRESENT
[2024-05-07 05:17] LABS: Large Platelet PRESENT; Platelet Estimate NORMAL (NORMAL); Platelet Morphology Comment NOTED
[2024-05-07] MEDS: Pantoprazole Sodium 40 MG/10 ML VIAL IVPUSH (05:24)
[2024-05-07] MEDS: Insulin Regular, Human 100 UNIT/ML 10 ML VIAL 15 UNIT IVPUSH (05:24)
[2024-05-07] MEDS: Heparin Sodium,Porcine 5,000 UNIT/ML VIAL 2500 UNIT IVPUSH (05:33)
[2024-05-07] MEDS: Albumin Human 25 % 100 ML 133.33 ML IV ×2 (05:41→06:31)
[2024-05-07] MEDS: Vasopressin 20 UNIT/100 ML INFUS..BTL 6 UNIT IVCONT ×2 (06:34→21:38)
[2024-05-07] MEDS: Albuterol/Iprat 2.5/0.5MG 3 ML AMPUL.NEB INHALE (07:28)
--- NOTE | 2024-05-07 07:46 | PC.NURSE ---
19:00: Assumed care of patient. 193: Vasopressin reduced to 0.02 units/min per SHERLY Rendon with plan to continue neosynephrine gtt. Patient febrile 102.6 core tmax overnight. OG tube still not in use per MD due to gastric mass. Plan discussed with SHERLY King, advised cooling blanket. Placed with +effect, afebrile 98.8 core this morning.? 05:00 hour: Serum glucose back critical at 446. PA order for 15 units regular insulin IVP instead of scheduled ISS. Recheck as scheduled per SHERLY Rendon. PTT back low 49.7. Patient bolused and gtt adjusted per [facility] protocol with RN witness. Repeat PTT ordered.? ? ~ 05:30 Respiratory and PA at bedside, changed pt's vent settings to pressure support rate 12/peep 5/28%. Pt RR ranging 16-22, breathing is even and unlabored without distress, spo2 maintained. Pt tolerating with sedation. BP 88/47 map of 60 at 05:54; neosynephrine gtt titrated per MAR for map goal >65 with +effect.? Albumin x2 ordered and administered.? Bed alarm on, safety measures in place. Please see shift assessments, tasks in worklist, and MAR for full details. Handoff report given to oncoming RN.
[2024-05-07] MEDS: Phenylephrine HCL 100 MG in 0.9 % Sodium Chloride 250 ML IVCONT (08:03)
[2024-05-07] MEDS: 0.9 % Sodium Chloride Flush 3 ML SYRINGE IVFLUSH ×3 (08:04→21:30)
--- NOTE | 2024-05-07 09:09 | MHC.CLN ---
F/U PT REMAINS NPO WITH PPN. CONTINUES ON VENT SUPPORT. REVIEWED LABS. RANDOM GLUCOSE ELEVATED THIS AM AND RECEIVED INSULIN. RECOMMEND CONTINUE PPN AT MAX GOAL RATE 100 ML/HR ADD 63 G LIPIDS TO PROVIDE 1854 KCALS (30 KCALS/KG IBW), 240 G DEXTROSE, 102 G PROTEIN (1.6 G/KG IBW). REPLETE LYTES NEEDED. CONTINUE TO MONITOR LABS AND PPN TOLERANCE.
[2024-05-07] MEDS: Chlorhexidine Gluc Oral Rinse 15 ML MOUTHWASH BUCCAL ×2 (10:11→14:38)
[2024-05-07] MEDS: prednisoLONE Acetate 1 % Oph Susp 5 ML DRPBTL 1 DROP EYE-LEFT (10:11)
[2024-05-07 11:31] LABS: Glucose, Whole Blood 387 mg/dL (60-115)
[2024-05-07 11:35] LABS: PTT Heparin Drip 67.7 SEC (53-77.9)
[2024-05-07 12:20] LABS: Glucose, Whole Blood 371 mg/dL (60-115)
[2024-05-07 17:29] LABS: Glucose, Whole Blood 335 mg/dL (60-115)
--- NOTE | 2024-05-07 18:03 | PM.CCPN ---
Subjective Subjective Date of Service: 05/07/24 Critical Care Time (minutes): 35 Comment: Patient on son ventilator support this morning, later switched him to pressor support he did okay borderline- we are giving him a trial of extubation Continues to be on phenylephrine and vasopressin for vasopressor support Physical Exam Vital Signs: Vital Signs: Last Vital Signs Temp 97.7 F 05/07/24 15:00 Pulse 77 05/07/24 18:02 Resp 27 H 05/07/24 17:00 BP 97/42 L 05/07/24 18:02 Pulse Ox 99 05/07/24 17:00 O2 Del Method Nasal Cannula 05/07/24 17:00 O2 Flow Rate 3 05/07/24 17:00 FiO2 28 05/07/24 15:31 Oxygen Flow Rate 28 05/07/24 08:00 BMI result Body Mass Index 29.1 General: Not in acute distress, ill appearing and tired appearing Nutritional Appearance: well nourished and overweight Eyes: appearance normal, both eyes and all related structures; Alignment and Position: alignment normal and position normal Neck: No lymphadenopathy, no thyromegaly Resp: bilateral air entry equal, occasional added sounds present Cardio: Regular rate, regular rhythm; Heart sounds: S1 normal heart sound present and S2 normal heart sound present GI: soft, nontender, no guarding, no hepatosplenomegaly : bladder normal to inspection, bladder normal to palpation, no renal angle tenderness Skin: no rashes or lesions noted and elasticity normal Neuro: Following commands, moves all extremities Objective Data Labs 05/07/24 04:30 05/07/24 04:30 Labs: Laboratory Results - last 24 hr 05/06/24 05/06/24 05/07/24 17:40 20:33 00:20 WBC RBC Hgb Hct MCV MCH MCHC RDW Plt Count MPV Immature Gran % (Auto) Neut % (Auto) Lymph % (Auto) [place] % (Auto) Eos % (Auto) Baso % (Auto) Lymph # (Auto) [place] # (Auto) Eos # (Auto) Baso # (Auto) Abs Immat Gran (auto) Absolute Neuts (auto) Absolute Nucleated RBC Nucleated RBC % (auto) Neutrophils % (Manual) Band Neutrophils % Lymphocytes % (Manual) Monocytes % (Manual) Metamyelocytes % Myelocytes % Abs Neuts (Manual) Lymphocytes # (Manual) Monocytes # (Manual) Metamyelocytes # Myelocytes # Toxic Granulation Platelet Estimate Large Platelets Plt Morphology Comment RBC Morphology Polychromasia Tear Drop Cells Ovalocytes [place] Cells aPTT Heparin Protocol O2 Saturation 98.0 ABG pH at Pt Temp 7.48 H ABG pCO2 at Pt Temp 33 ABG pO2 at Pt Temp 87 ABG HCO3 25 ABG Base Excess (Actual) 2.5 Sodium Potassium Chloride Carbon Dioxide Anion Gap BUN Creatinine Estim Creat Clear Calc Estimated GFR POC Glucose 212 H 319 H Random Glucose Calcium Phosphorus Magnesium Total Bilirubin AST ALT Alkaline Phosphatase Total Protein Albumin 05/07/24 05/07/24 05/07/24 04:30 04:41 10:38 WBC 19.1 H RBC 3.36 L Hgb 9.3 L Hct 29.2 L MCV 86.9 MCH 27.7 MCHC 31.8 RDW 18.8 H Plt Count 168 MPV 11.1 Immature Gran % (Auto) Cancelled Neut % (Auto) Cancelled Lymph % (Auto) Cancelled [place] % (Auto) Cancelled Eos % (Auto) Cancelled Baso % (Auto) Cancelled Lymph # (Auto) Cancelled [place] # (Auto) Cancelled Eos # (Auto) Cancelled Baso # (Auto) Cancelled Abs Immat Gran (auto) Cancelled Absolute Neuts (auto) Cancelled Absolute Nucleated RBC 0.060 H Nucleated RBC % (auto) 0.3 H Neutrophils % (Manual) 87 H Band Neutrophils % 3 Lymphocytes % (Manual) 4 L Monocytes % (Manual) 4 Metamyelocytes % 1 Myelocytes % 1 Abs Neuts (Manual) 17.2 H Lymphocytes # (Manual) 0.8 L Monocytes # (Manual) 0.8 Metamyelocytes # 0.2 Myelocytes # 0.2 Toxic Granulation PRESENT Platelet Estimate NORMAL Large Platelets PRESENT Plt Morphology Comment NOTED RBC Morphology NOTED Polychromasia 2+ (3-5) Tear Drop Cells 1+ (0-2) Ovalocytes 2+ (15-30) [place] Cells 2+ (3-5) aPTT Heparin Protocol 49.7 L O2 Saturation 100.0 ABG pH at Pt Temp 7.44 ABG pCO2 at Pt Temp 36 ABG pO2 at Pt Temp 99 ABG HCO3 25 ABG Base Excess (Actual) 1.4 Sodium 136 Potassium 4.1 Chloride 100 Carbon Dioxide 22 Anion Gap 18 BUN 77 H Creatinine 3.23 H Estim Creat Clear Calc 20.3 Estimated GFR 19 POC Glucose 387 H* Random Glucose 446 H* Calcium 8.2 L Phosphorus 3.6 Magnesium 2.3 Total Bilirubin 0.8 AST 179 H ALT 468 H Alkaline Phosphatase 245 H Total Protein 5.4 L Albumin 2.6 L 05/07/24 05/07/24 05/07/24 11:15 12:16 17:26 WBC RBC Hgb Hct MCV MCH MCHC RDW Plt Count MPV Immature Gran % (Auto) Neut % (Auto) Lymph % (Auto) [place] % (Auto) Eos % (Auto) Baso % (Auto) Lymph # (Auto) [place] # (Auto) Eos # (Auto) Baso # (Auto) Abs Immat Gran (auto) Absolute Neuts (auto) Absolute Nucleated RBC Nucleated RBC % (auto) Neutrophils % (Manual) Band Neutrophils % Lymphocytes % (Manual) Monocytes % (Manual) Metamyelocytes % Myelocytes % Abs Neuts (Manual) Lymphocytes # (Manual) Monocytes # (Manual) Metamyelocytes # Myelocytes # Toxic Granulation Platelet Estimate Large Platelets Plt Morphology Comment RBC Morphology Polychromasia Tear Drop Cells Ovalocytes [place] Cells aPTT Heparin Protocol 67.7 D O2 Saturation ABG pH at Pt Temp ABG pCO2 at Pt Temp ABG pO2 at Pt Temp ABG HCO3 ABG Base Excess (Actual) Sodium Potassium Chloride Carbon Dioxide Anion Gap BUN Creatinine Estim Creat Clear Calc Estimated GFR POC Glucose 371 H* 335 H Random Glucose Calcium Phosphorus Magnesium Total Bilirubin AST ALT Alkaline Phosphatase Total Protein Albumin Microbiology Microbiology Results: Microbiology 05/02/24 07:09 Blood - Venous Blood Culture - Final No growth after 5 days. 05/02/24 07:09 Blood - Venous Blood Culture - Final No growth after 5 days. Progress Note: A&P Assessment and plan (1) HTN (hypertension): Status: Acute (2) Coronary artery disease: Status: Acute (3) Acid reflux: Status: Acute (4) Acute on chronic respiratory failure with hypoxia: Status: Acute (5) Mild intermittent asthma: Status: Acute (6) Acute hypoxemic respiratory failure: Status: Acute (7) Aspiration pneumonia: Status: Acute Plan Neuro: Acute encephalopathy possibly due to metabolic encephalopathy and is currently improving On Precedex for anxiolysis 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 Levophed switched to phenylephrine most recent troponin 1300, which is flat Given multiorgan failure and on ventilator he is a poor candidate for any procedure including cardiac catheterization Heparin. This morning Atrial fibrillation: Reverted back to sinus rhythm Can not start on rate-controlling agent due to shock Amiodarone stopped due to liver dysfunction Respiratory: Acute hypoxemic respiratory failure due to bilateral aspiration pneumonia on ventilator support this morning,On PC mode FiO2 titrated down to 30%, 16/5, RR 20, did well on pressor support trials, his weaning parameters were borderline but as he is on ventilator for so many days we are giving him a trial of extubation. GI: Metastatic gastric cancer: Gastric cancer with metastasis to bone currently on FOLFOX and Nivolumab chemotherapy CT abdomen showing thickened gastric antrum, hiatal hernia and dilated esophagus filled with fluids I could see active aspiration of the gastric contents into the airway, continue OG tube to suction. Hold off on tube feeds continue PPN conitnue bisacodyl and poor response to soap sudds enema- poor sphincter tone Shock liver: AST and ALT significantly improving down, 468 and 179 this morning amiodarone stopped, PEEP to 5 improving with diuresis Renal: Acute kidney injury: due to ATN from shock; creatinine improving, down to 3.23 this morning urine output 4.6 L, Lasix withheld; currently in diuretic phase We will closely monitor I's and O's Avoid nephrotoxic medications Heme: Chronic anemia, closely monitor H&H, transfuse for hemoglobin less than 7 grams/deciliter Endocrine: Blood sugars under control Sliding scale insulin as needed Infectious disease: Pancultures negative so far MRSA nares negative Continue cefepime for antibiotic coverage Musculoskeletal: Decubitus ulcer prevention protocol Lines: Femoral art line Peripheral access Posada catheter for BPH Prophylaxis: heparin, pantoprazole Quality Stroke Does the patient have a stroke diagnosis?: No VTE Prior VTE?: No VTE Risk Level:: Medical - moderate - high VTE Device Contraindication: Treatment Not Indicated VTE Drug Contraindication: N/A - Med Ordered
--- NOTE | 2024-05-07 19:35 | PC.NURSE ---
Assumed care of patient 0700 Pt has been on PSV trial since 05:30. Vent settings PSV 12/5, 28%. Tolerating well, volumes >300 Per MD sedation vacation started. Decreased Precedex gtt by half to 0.6 per MD. Titrated down for goal RASS 0 (alert and calm). Pt provided full bed bath, repositioned Q2H. 12:00 PSV 8/5, 28%, pt maintaining good volumes. 15:15 CT port right chest reaccessed with new power injectable needle, 20G, 3/4 inches. Sterile technique used, new sterile biopatch and dressing applied. 15:35 Per MD orders, extubate patient. Pt extubated 15:40 to 3L NC. SaO2 96-98%.
[2024-05-07] MEDS: Parenteral Nutrition 2,400 ML 100 ML IV (21:45)
[2024-05-07 23:08] LABS: Glucose, Whole Blood 134 mg/dL (60-115)
[2024-05-07] MEDS: Heparin Sodium,Porcine 5,000 UNIT/ML VIAL 5000 UNIT SUBCUT (23:45)
[2024-05-08] VITALS (42 sets, daily range): BP systolic 93–125; BP diastolic 41–61; PULSE 77–124; RESP 20–36; TEMP 36.5–37.4; O2SAT 86–100; BMI 28.9
[2024-05-08] MEDS: dexmedeTOMIDidine HCL/NS 400 MCG/100 ML INFUS..BTL 20.13 MCG IVCONT (00:57)
[2024-05-08] MEDS: Piperacillin Sodium/Tazobactam 4.5 GM in 0.9 % Sodium Chloride 100 ML IV ×2 (01:04→14:50)
[2024-05-08] MEDS: HYDROmorphone HCl 0.5 MG/0.5 ML SYRINGE IVPUSH (01:45)
[2024-05-08] MEDS: Phenylephrine HCL 100 MG in 0.9 % Sodium Chloride 250 ML 24.65 MG IVCONT ×2 (02:54→16:56)
[2024-05-08 04:50] LABS: Hematocrit 28.6 % (42.0-52.0); Hemoglobin 8.9 g/dl (14.0-18.0); Mean Corpuscular HGB Conc 31.1 g/dl (31.0-36.0); Mean Corpuscular Hemoglobin 27.6 pg (27.0-33.0); Mean Corpuscular Volume 88.8 fL (80.0-98.0); Mean Platelet Volume 10.9 fL (9.4-12.4); NRBC Pct Auto 0.4 /100WBC (0.0-0.2); Platelet Count 165 X10*3/uL (160-400); Red Blood Count 3.22 X10*6/uL (4.60-5.80); Red Cell Distribution Width 19.1 % (11.0-16.0); White Blood Count 24.4 X10*3/uL (4.8-10.8)
[2024-05-08 04:50] LABS: ABG Base Excess -1.3 mmol/L; ABG HCO3 25 mmol/L (22-26); ABG pCO2 51 mmHg (32-45); ABG pO2 141 mmHg (83-108)
[2024-05-08 05:04] LABS: Albumin Level 3.3 g/dL (3.5-5.0); Anion Gap 20 (12-20); Blood Urea Nitrogen 86 mg/dL (9-16); Calcium 8.8 mg/dL (8.4-10.2); Carbon Dioxide 23 mmol/L (22-29); Chloride 103 mmol/L (96-108); Creatinine Clr Calc Pharmacy 22.2; Estimated Glomerular Filt Rate 21; Glucose Random 266 mg/dL (60-115); Magnesium 2.2 mg/dL (1.6-2.6); Phosphorus 5.6 mg/dL (2.7-4.5); Sodium 141 mmol/L (135-145)
[2024-05-08 05:06] LABS: Alanine Aminotransferase 305 U/L (0-40); Albumin Level 3.3 g/dL (3.5-5.0); Alkaline Phosphatase 175 U/L (39-117); Anion Gap 20 (12-20); Aspartate Amino Transferase 87 U/L (5-37); Bilirubin Total 0.8 mg/dL (0.0-1.0); Blood Urea Nitrogen 83 mg/dL (9-16); Calcium 8.9 mg/dL (8.4-10.2); Carbon Dioxide 22 mmol/L (22-29); Chloride 102 mmol/L (96-108); Creatinine Clr Calc Pharmacy 23.4; Estimated Glomerular Filt Rate 23; Glucose Random 264 mg/dL (60-115); Magnesium 2.2 mg/dL (1.6-2.6); Phosphorus 5.6 mg/dL (2.7-4.5); Potassium 4.9 mmol/L (3.3-5.1); Sodium 139 mmol/L (135-145); Total Protein 5.9 g/dL (6.5-8.0)
[2024-05-08 05:08] LABS: ABG Refer to POC result
[2024-05-08 05:12] LABS: Band Neutrophils Percent 5 % (3-5); Eosinophils Absolute Manual 0.5 X10*3/uL (0.0-0.4); Eosinophils Percent Manual 2 % (0-4); Lymphocytes Absolute Manual 0.7 X10*3/uL (1.2-4.9); Lymphocytes Percent Manual 3 % (20-40); Metamyelocytes Absolute 0.2 X10*3/uL; Metamyelocytes Percent 1 %; Monocytes Absolute Manual 0.7 X10*3/uL (0.1-1.2); Monocytes Percent Manual 3 % (2-11); Neutrophils Absolute Manual 22.2 X10*3/uL (2.0-8.3); Neutrophils Percent Manual 86 % (45-73)
[2024-05-08 05:13] LABS: Ovalocytes 1+ (5-14) /OIF; Platelet Estimate NORMAL (NORMAL); Platelet Morphology Comment NORMAL; RBC Morphology NOTED; Schistocytes 1+ (0-2) /OIF; Spherocytes 1+ (0-2) /OIF
[2024-05-08 05:14] LABS: Polychromasia 1+ (0-2) /OIF; Tear Drop Cells 1+ (0-2) /OIF; Toxic Granulation PRESENT
[2024-05-08] MEDS: dexmedeTOMIDidine HCL/NS 400 MCG/100 ML INFUS..BTL 24.15 MCG IVCONT (05:15)
[2024-05-08] MEDS: Insulin Lispro 100 UNIT/ML 3 ML VIAL SUBCUT ×4 (05:21→23:29)
[2024-05-08] MEDS: Pantoprazole Sodium 40 MG/10 ML VIAL IVPUSH (05:21)
[2024-05-08] MEDS: Heparin Sodium,Porcine 5,000 UNIT/ML VIAL 5000 UNIT SUBCUT ×3 (06:40→23:17)
--- NOTE | 2024-05-08 07:07 | PC.NURSE ---
19:00 Assumed care of patient. Patient seen this evening, extubated earlier today. Patient initially tolerating 3L nc on assuming care. Pt denies sob. Breathing is even and unlabored without distress. On evening rounding with SHERLY Rendon, marketing copywriter discussed diet plan, PA advised continue strict NPO at this time given gastric CA hx. Pt continues on PPN per MAY. Heparin gtt discontinued earlier today per MAY review. PA made aware. HSQ ordered by provider and administered. SCDs remain in place.? Vasopressin infusing at 0.02units/min on assuming care. Continues on neosynephrine as well per PA. Titrated per MAY.? 21:00 hour:? Upsetter Helper to room for desats upper 80?s. Patient found with nc off and in his hand, was also found to have pulled out his two peripheral ultrasound IVs from his left arm during this time. Patient appeared restless in the bed, shaking his legs, pulling off spo2 probe from forehead. In-room camera placed to assist with maintaining safety and lines. Bed alarm on and safety measures continue. SHERLY Rendon notified with verbal order to restart precedex.? 0:00-01:00 hour: Patient noted to be tachypneic in lower 30?s with upper rhonchi. PO suctioned for a moderate amount of sputum, though still sounded rhonchorous. RT requested to bedside, provided NT suctioning for moderate amount of thick sputum. RR improved to upper teens/lower 20?s briefly. PA made aware. Order for dilaudid for work of breathing per PA, given with +effect. RR improved to mid 20?s.? Pt switched from nc to oxymask overnight for mouth breathing while asleep. Pt was able to be weaned to 2L oxymask this morning, tolerating, with spo2 mid 90?s. Breathing remains even and unlabored without distress. Bed alarm on and safety measures in place. Continues with in-room camera.
[2024-05-08] MEDS: 0.9 % Sodium Chloride Flush 3 ML SYRINGE IVFLUSH ×3 (08:55→23:18)
[2024-05-08] MEDS: prednisoLONE Acetate 1 % Oph Susp 5 ML DRPBTL 1 DROP EYE-LEFT (08:56)
[2024-05-08 10:00] LABS: ABG Base Excess -0.5 mmol/L; ABG HCO3 26 mmol/L (22-26); ABG pCO2 50 mmHg (32-45); ABG pH 7.31 (7.35-7.45); ABG pO2 95 mmHg (83-108)
--- NOTE | 2024-05-08 11:24 | MHC.CLN ---
F/U PATIENT EXTUBATED 05/07. PT REMAINS NPO WITH PPN DUE TO GASTRIC CANCER. REVIEWED LABS. RANDOM GLUCOSE ELEVATED. RECOMMEND CHANGE PPN TO MAX GOAL RATE 85 ML/HR ADD 82 G LIPIDS TO PROVIDE 1860 KCALS (30 KCALS/KG IBW), 204 G DEXTROSE, 87 G PROTEIN (1.4 G/KG IBW). REPLETE LYTES NEEDED. CONTINUE TO MONITOR LABS AND PPN TOLERANCE.
[2024-05-08 11:33] LABS: Glucose, Whole Blood 282 mg/dL (60-115)
[2024-05-08] MEDS: Vasopressin 20 UNIT/100 ML INFUS..BTL 6 UNIT IVCONT (11:42)
[2024-05-08 12:32] LABS: ABG Refer to POC result
--- NOTE | 2024-05-08 15:23 | P.PNCC_ITS ---
Subjective Subjective Date of Service: 05/08/24 Critical Care Time (minutes): 35 Comment: Extubated yesterday, continues to be on 2 vasopressor support. On OxyMask, saturations okay Physical Exam 2 Vital Signs: Vital Signs: Last Vital Signs Temp 98.5 F 05/08/24 12:00 Pulse 107 H 05/08/24 15:00 Resp 25 H 05/08/24 15:00 BP 98/49 L 05/08/24 15:00 Pulse Ox 92 05/08/24 15:00 O2 Del Method Nasal Cannula 05/08/24 15:00 O2 Flow Rate 4 05/08/24 15:00 FiO2 28 05/07/24 15:31 Oxygen Flow Rate 2 05/08/24 08:00 BMI result Body Mass Index 28.9 General: in somewhat acute distress, ill appearing and tired appearing Nutritional Appearance: well nourished and overweight Eyes: appearance normal, both eyes and all related structures; Alignment and Position: alignment normal and position normal Neck: No lymphadenopathy, no thyromegaly Resp: bilateral air entry equal, bilateral significant wheeze heard Cardio: Regular rate, regular rhythm; Heart sounds: S1 normal heart sound present and S2 normal heart sound present GI: soft, nontender, no guarding, no hepatosplenomegaly : bladder normal to inspection, bladder normal to palpation, no renal angle tenderness Skin: no rashes or lesions noted and elasticity normal Neuro: oriented to person, oriented to place, oriented to time and moves all extremities Objective Data Labs 05/08/24 04:10 05/08/24 04:10 Labs: Laboratory Results - last 24 hr 05/07/24 05/07/24 05/08/24 17:26 23:03 04:10 WBC Cancelled RBC Hgb Hct MCV MCH MCHC RDW Plt Count MPV Immature Gran % (Auto) Neut % (Auto) Lymph % (Auto) [place] % (Auto) Eos % (Auto) Baso % (Auto) Lymph # (Auto) [place] # (Auto) Eos # (Auto) Baso # (Auto) Abs Immat Gran (auto) Absolute Neuts (auto) Absolute Nucleated RBC Nucleated RBC % (auto) Neutrophils % (Manual) Band Neutrophils % Lymphocytes % (Manual) Monocytes % (Manual) Eosinophils % (Manual) Metamyelocytes % Abs Neuts (Manual) Lymphocytes # (Manual) Monocytes # (Manual) Eosinophils # (Manual) Metamyelocytes # Toxic Granulation Platelet Estimate Plt Morphology Comment RBC Morphology Polychromasia Spherocytes Tear Drop Cells Ovalocytes Schistocytes O2 Saturation ABG pH at Pt Temp ABG pCO2 at Pt Temp ABG pO2 at Pt Temp ABG HCO3 ABG Base Excess (Actual) Sodium Potassium Chloride Carbon Dioxide Anion Gap BUN Creatinine Estim Creat Clear Calc Estimated GFR POC Glucose 335 H 134 H Random Glucose Calcium Phosphorus Magnesium Total Bilirubin AST ALT Alkaline Phosphatase Total Protein Albumin 05/08/24 05/08/24 05/08/24 04:10 04:10 04:10 WBC 24.4 H RBC Cancelled 3.22 L Hgb Cancelled 8.9 L Hct Cancelled MCV MCH MCHC RDW Plt Count MPV Immature Gran % (Auto) Neut % (Auto) Lymph % (Auto) [place] % (Auto) Eos % (Auto) Baso % (Auto) Lymph # (Auto) [place] # (Auto) Eos # (Auto) Baso # (Auto) Abs Immat Gran (auto) Absolute Neuts (auto) Absolute Nucleated RBC Nucleated RBC % (auto) Neutrophils % (Manual) Band Neutrophils % Lymphocytes % (Manual) Monocytes % (Manual) Eosinophils % (Manual) Metamyelocytes % Abs Neuts (Manual) Lymphocytes # (Manual) Monocytes # (Manual) Eosinophils # (Manual) Metamyelocytes # Toxic Granulation Platelet Estimate Plt Morphology Comment RBC Morphology Polychromasia Spherocytes Tear Drop Cells Ovalocytes Schistocytes O2 Saturation ABG pH at Pt Temp ABG pCO2 at Pt Temp ABG pO2 at Pt Temp ABG HCO3 ABG Base Excess (Actual) Sodium Potassium Chloride Carbon Dioxide Anion Gap BUN Creatinine Estim Creat Clear Calc Estimated GFR POC Glucose Random Glucose Calcium Phosphorus Magnesium Total Bilirubin AST ALT Alkaline Phosphatase Total Protein Albumin 05/08/24 05/08/24 05/08/24 04:10 04:10 04:10 WBC RBC Hgb Hct 28.6 L MCV Cancelled 88.8 MCH Cancelled 27.6 MCHC Cancelled RDW Plt Count MPV Immature Gran % (Auto) Neut % (Auto) Lymph % (Auto) [place] % (Auto) Eos % (Auto) Baso % (Auto) Lymph # (Auto) [place] # (Auto) Eos # (Auto) Baso # (Auto) Abs Immat Gran (auto) Absolute Neuts (auto) Absolute Nucleated RBC Nucleated RBC % (auto) Neutrophils % (Manual) Band Neutrophils % Lymphocytes % (Manual) Monocytes % (Manual) Eosinophils % (Manual) Metamyelocytes % Abs Neuts (Manual) Lymphocytes # (Manual) Monocytes # (Manual) Eosinophils # (Manual) Metamyelocytes # Toxic Granulation Platelet Estimate Plt Morphology Comment RBC Morphology Polychromasia Spherocytes Tear Drop Cells Ovalocytes Schistocytes O2 Saturation ABG pH at Pt Temp ABG pCO2 at Pt Temp ABG pO2 at Pt Temp ABG HCO3 ABG Base Excess (Actual) Sodium Potassium Chloride Carbon Dioxide Anion Gap BUN Creatinine Estim Creat Clear Calc Estimated GFR POC Glucose Random Glucose Calcium Phosphorus Magnesium Total Bilirubin AST ALT Alkaline Phosphatase Total Protein Albumin 05/08/24 05/08/24 05/08/24 04:10 04:10 04:10 WBC RBC Hgb Hct MCV MCH MCHC 31.1 RDW Cancelled 19.1 H Plt Count Cancelled 165 MPV Cancelled Immature Gran % (Auto) Neut % (Auto) Lymph % (Auto) [place] % (Auto) Eos % (Auto) Baso % (Auto) Lymph # (Auto) [place] # (Auto) Eos # (Auto) Baso # (Auto) Abs Immat Gran (auto) Absolute Neuts (auto) Absolute Nucleated RBC Nucleated RBC % (auto) Neutrophils % (Manual) Band Neutrophils % Lymphocytes % (Manual) Monocytes % (Manual) Eosinophils % (Manual) Metamyelocytes % Abs Neuts (Manual) Lymphocytes # (Manual) Monocytes # (Manual) Eosinophils # (Manual) Metamyelocytes # Toxic Granulation Platelet Estimate Plt Morphology Comment RBC Morphology Polychromasia Spherocytes Tear Drop Cells Ovalocytes Schistocytes O2 Saturation ABG pH at Pt Temp ABG pCO2 at Pt Temp ABG pO2 at Pt Temp ABG HCO3 ABG Base Excess (Actual) Sodium Potassium Chloride Carbon Dioxide Anion Gap BUN Creatinine Estim Creat Clear Calc Estimated GFR POC Glucose Random Glucose Calcium Phosphorus Magnesium Total Bilirubin AST ALT Alkaline Phosphatase Total Protein Albumin 05/08/24 05/08/24 05/08/24 04:10 04:10 04:10 WBC RBC Hgb Hct MCV MCH MCHC RDW Plt Count MPV 10.9 Immature Gran % (Auto) Cancelled Neut % (Auto) Cancelled Lymph % (Auto) Cancelled [place] % (Auto) Cancelled Eos % (Auto) Cancelled Baso % (Auto) Cancelled Lymph # (Auto) Cancelled [place] # (Auto) Cancelled Eos # (Auto) Cancelled Baso # (Auto) Cancelled Abs Immat Gran (auto) Cancelled Absolute Neuts (auto) Cancelled Absolute Nucleated RBC Cancelled 0.090 H Nucleated RBC % (auto) Cancelled 0.4 H Neutrophils % (Manual) 86 H Band Neutrophils % 5 Lymphocytes % (Manual) 3 L Monocytes % (Manual) 3 Eosinophils % (Manual) 2 Metamyelocytes % 1 Abs Neuts (Manual) 22.2 H Lymphocytes # (Manual) 0.7 L Monocytes # (Manual) 0.7 Eosinophils # (Manual) 0.5 H Metamyelocytes # 0.2 Toxic Granulation PRESENT Platelet Estimate NORMAL Plt Morphology Comment NORMAL RBC Morphology NOTED Polychromasia 1+ (0-2) Spherocytes 1+ (0-2) Tear Drop Cells 1+ (0-2) Ovalocytes 1+ (5-14) Schistocytes 1+ (0-2) O2 Saturation ABG pH at Pt Temp ABG pCO2 at Pt Temp ABG pO2 at Pt Temp ABG HCO3 ABG Base Excess (Actual) Sodium 139 Potassium Chloride Carbon Dioxide Anion Gap BUN Creatinine Estim Creat Clear Calc Estimated GFR POC Glucose Random Glucose Calcium Phosphorus Magnesium Total Bilirubin AST ALT Alkaline Phosphatase Total Protein Albumin 05/08/24 05/08/24 05/08/24 04:10 04:10 04:10 WBC RBC Hgb Hct MCV MCH MCHC RDW Plt Count MPV Immature Gran % (Auto) Neut % (Auto) Lymph % (Auto) [place] % (Auto) Eos % (Auto) Baso % (Auto) Lymph # (Auto) [place] # (Auto) Eos # (Auto) Baso # (Auto) Abs Immat Gran (auto) Absolute Neuts (auto) Absolute Nucleated RBC Nucleated RBC % (auto) Neutrophils % (Manual) Band Neutrophils % Lymphocytes % (Manual) Monocytes % (Manual) Eosinophils % (Manual) Metamyelocytes % Abs Neuts (Manual) Lymphocytes # (Manual) Monocytes # (Manual) Eosinophils # (Manual) Metamyelocytes # Toxic Granulation Platelet Estimate Plt Morphology Comment RBC Morphology Polychromasia Spherocytes Tear Drop Cells Ovalocytes Schistocytes O2 Saturation ABG pH at Pt Temp ABG pCO2 at Pt Temp ABG pO2 at Pt Temp ABG HCO3 ABG Base Excess (Actual) Sodium 141 Potassium 4.9 5.0 Chloride 102 103 Carbon Dioxide 22 Anion Gap BUN Creatinine Estim Creat Clear Calc Estimated GFR POC Glucose Random Glucose Calcium Phosphorus Magnesium Total Bilirubin AST ALT Alkaline Phosphatase Total Protein Albumin 05/08/24 05/08/24 05/08/24 04:10 04:10 04:10 WBC RBC Hgb Hct MCV MCH MCHC RDW Plt Count MPV Immature Gran % (Auto) Neut % (Auto) Lymph % (Auto) [place] % (Auto) Eos % (Auto) Baso % (Auto) Lymph # (Auto) [place] # (Auto) Eos # (Auto) Baso # (Auto) Abs Immat Gran (auto) Absolute Neuts (auto) Absolute Nucleated RBC Nucleated RBC % (auto) Neutrophils % (Manual) Band Neutrophils % Lymphocytes % (Manual) Monocytes % (Manual) Eosinophils % (Manual) Metamyelocytes % Abs Neuts (Manual) Lymphocytes # (Manual) Monocytes # (Manual) Eosinophils # (Manual) Metamyelocytes # Toxic Granulation Platelet Estimate Plt Morphology Comment RBC Morphology Polychromasia Spherocytes Tear Drop Cells Ovalocytes Schistocytes O2 Saturation ABG pH at Pt Temp ABG pCO2 at Pt Temp ABG pO2 at Pt Temp ABG HCO3 ABG Base Excess (Actual) Sodium Potassium Chloride Carbon Dioxide 23 Anion Gap 20 20 BUN 83 H 86 H Creatinine 2.76 H Estim Creat Clear Calc Estimated GFR POC Glucose Random Glucose Calcium Phosphorus Magnesium Total Bilirubin AST ALT Alkaline Phosphatase Total Protein Albumin 05/08/24 05/08/24 05/08/24 04:10 04:10 04:10 WBC RBC Hgb Hct MCV MCH MCHC RDW Plt Count MPV Immature Gran % (Auto) Neut % (Auto) Lymph % (Auto) [place] % (Auto) Eos % (Auto) Baso % (Auto) Lymph # (Auto) [place] # (Auto) Eos # (Auto) Baso # (Auto) Abs Immat Gran (auto) Absolute Neuts (auto) Absolute Nucleated RBC Nucleated RBC % (auto) Neutrophils % (Manual) Band Neutrophils % Lymphocytes % (Manual) Monocytes % (Manual) Eosinophils % (Manual) Metamyelocytes % Abs Neuts (Manual) Lymphocytes # (Manual) Monocytes # (Manual) Eosinophils # (Manual) Metamyelocytes # Toxic Granulation Platelet Estimate Plt Morphology Comment RBC Morphology Polychromasia Spherocytes Tear Drop Cells Ovalocytes Schistocytes O2 Saturation ABG pH at Pt Temp ABG pCO2 at Pt Temp ABG pO2 at Pt Temp ABG HCO3 ABG Base Excess (Actual) Sodium Potassium Chloride Carbon Dioxide Anion Gap BUN Creatinine 2.91 H Estim Creat Clear Calc 23.4 22.2 Estimated GFR 23 21 POC Glucose Random Glucose 264 H Calcium Phosphorus Magnesium Total Bilirubin AST ALT Alkaline Phosphatase Total Protein Albumin 05/08/24 05/08/24 05/08/24 04:10 04:10 04:10 WBC RBC Hgb Hct MCV MCH MCHC RDW Plt Count MPV Immature Gran % (Auto) Neut % (Auto) Lymph % (Auto) [place] % (Auto) Eos % (Auto) Baso % (Auto) Lymph # (Auto) [place] # (Auto) Eos # (Auto) Baso # (Auto) Abs Immat Gran (auto) Absolute Neuts (auto) Absolute Nucleated RBC Nucleated RBC % (auto) Neutrophils % (Manual) Band Neutrophils % Lymphocytes % (Manual) Monocytes % (Manual) Eosinophils % (Manual) Metamyelocytes % Abs Neuts (Manual) Lymphocytes # (Manual) Monocytes # (Manual) Eosinophils # (Manual) Metamyelocytes # Toxic Granulation Platelet Estimate Plt Morphology Comment RBC Morphology Polychromasia Spherocytes Tear Drop Cells Ovalocytes Schistocytes O2 Saturation ABG pH at Pt Temp ABG pCO2 at Pt Temp ABG pO2 at Pt Temp ABG HCO3 ABG Base Excess (Actual) Sodium Potassium Chloride Carbon Dioxide Anion Gap BUN Creatinine Estim Creat Clear Calc Estimated GFR POC Glucose Random Glucose 266 H Calcium 8.9 D 8.8 Phosphorus 5.6 H 5.6 H Magnesium 2.2 Total Bilirubin AST ALT Alkaline Phosphatase Total Protein Albumin 05/08/24 05/08/24 05/08/24 04:10 04:10 04:44 WBC RBC Hgb Hct MCV MCH MCHC RDW Plt Count MPV Immature Gran % (Auto) Neut % (Auto) Lymph % (Auto) [place] % (Auto) Eos % (Auto) Baso % (Auto) Lymph # (Auto) [place] # (Auto) Eos # (Auto) Baso # (Auto) Abs Immat Gran (auto) Absolute Neuts (auto) Absolute Nucleated RBC Nucleated RBC % (auto) Neutrophils % (Manual) Band Neutrophils % Lymphocytes % (Manual) Monocytes % (Manual) Eosinophils % (Manual) Metamyelocytes % Abs Neuts (Manual) Lymphocytes # (Manual) Monocytes # (Manual) Eosinophils # (Manual) Metamyelocytes # Toxic Granulation Platelet Estimate Plt Morphology Comment RBC Morphology Polychromasia Spherocytes Tear Drop Cells Ovalocytes Schistocytes O2 Saturation 100.0 ABG pH at Pt Temp 7.30 L ABG pCO2 at Pt Temp 51 H ABG pO2 at Pt Temp 141 H ABG HCO3 25 ABG Base Excess (Actual) -1.3 Sodium Potassium Chloride Carbon Dioxide Anion Gap BUN Creatinine Estim Creat Clear Calc Estimated GFR POC Glucose Random Glucose Calcium Phosphorus Magnesium 2.2 Total Bilirubin 0.8 AST 87 H ALT 305 H Alkaline Phosphatase 175 H Total Protein 5.9 L Albumin 3.3 L 3.3 L 05/08/24 05/08/24 09:56 11:19 WBC RBC Hgb Hct MCV MCH MCHC RDW Plt Count MPV Immature Gran % (Auto) Neut % (Auto) Lymph % (Auto) [place] % (Auto) Eos % (Auto) Baso % (Auto) Lymph # (Auto) [place] # (Auto) Eos # (Auto) Baso # (Auto) Abs Immat Gran (auto) Absolute Neuts (auto) Absolute Nucleated RBC Nucleated RBC % (auto) Neutrophils % (Manual) Band Neutrophils % Lymphocytes % (Manual) Monocytes % (Manual) Eosinophils % (Manual) Metamyelocytes % Abs Neuts (Manual) Lymphocytes # (Manual) Monocytes # (Manual) Eosinophils # (Manual) Metamyelocytes # Toxic Granulation Platelet Estimate Plt Morphology Comment RBC Morphology Polychromasia Spherocytes Tear Drop Cells Ovalocytes Schistocytes O2 Saturation 98.0 ABG pH at Pt Temp 7.31 L ABG pCO2 at Pt Temp 50 H ABG pO2 at Pt Temp 95 ABG HCO3 26 ABG Base Excess (Actual) -0.5 Sodium Potassium Chloride Carbon Dioxide Anion Gap BUN Creatinine Estim Creat Clear Calc Estimated GFR POC Glucose 282 H Random Glucose Calcium Phosphorus Magnesium Total Bilirubin AST ALT Alkaline Phosphatase Total Protein Albumin Microbiology Microbiology Results: Microbiology 05/02/24 07:09 Blood - Venous Blood Culture - Final No growth after 5 days. 05/02/24 07:09 Blood - Venous Blood Culture - Final No growth after 5 days. Progress Note: A&P Assessment and plan (1) Schizoaffective disorder: Status: Acute (2) Acute hypoxemic respiratory failure: Status: Acute (3) Aspiration pneumonia: Status: Acute (4) Acute on chronic respiratory failure with hypoxia: Status: Acute (5) Mild intermittent asthma: Status: Acute (6) Acute kidney injury: Status: Acute (7) Coronary artery disease: Status: Acute (8) HTN (hypertension): Status: Acute Plan 74-year-old gentleman with past medical history of metastatic gastric cancer, HTN, CAD, schizoaffective disorder, mild intermittent asthma, tremors, currently receiving chemotherapy with FOLFOX and nivolumab was admitted to the hospital on 04/25/2024 from the oncology clinic due to poor oral intake and abdominal pain. Patient has significant hiatal hernia with dilation of esophagus leading to significant dysphagia. Hospital course complicated with aspiration pneumonia, needing incresae in oxygen requirement finally needing intubation on 05/02/2024; went into septic shock needing to vasopressor support, AFib with RVR, takotsubo cardiomyopathy, shock liver and acute kidney injury. Shock liver and acute kidney injury is improving, his respiratory status improved and he was extubated on 05/07/2024. Neuro: Acute encephalopathy has improved 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 Levophed switched to phenylephrine most recent troponin 1300, which is flat Given multiorgan failure and on ventilator he is a poor candidate for any procedure including cardiac catheterization Heparin discontinued Atrial fibrillation: Reverted back to sinus rhythm Can not start on rate-controlling agent due to shock Amiodarone stopped due to liver dysfunction Respiratory: Acute hypoxemic respiratory failure due to bilateral aspiration pneumonia Extubated yesterday, still dyspneic and high-risk for re-intubation in which case he might need a tracheostomy as patient has significantly dilated esophagus, gastric outlet obstruction and high-risk for aspiration. GI: Metastatic gastric cancer: Gastric cancer with metastasis to bone currently on FOLFOX and Nivolumab chemotherapy CT abdomen showing thickened gastric antrum, hiatal hernia and dilated esophagus filled with fluids I could see active aspiration of the gastric contents into the airway post intubation, continue OG tube to suction. Hold off on tube feeds continue PPN as patient has gastric outlet obstruction and continuous aspiration. He might need a J-tube placement for long-term feeding conitnue bisacodyl and poor response to soap sudds enema- poor sphincter tone Shock liver: AST and ALT significantly improving down, 87 and 305 this morning amiodarone stopped, PEEP to 5 improving with diuresis Renal: Acute kidney injury: due to ATN from shock; creatinine improving, down to 32.8.23 this morning urine output 2.7 L, Lasix withheld; currently in diuretic phase We will closely monitor I's and O's Avoid nephrotoxic medications Heme: Chronic anemia, closely monitor H&H, transfuse for hemoglobin less than 7 grams/deciliter Endocrine: Blood sugars under control Sliding scale insulin as needed Infectious disease: Pancultures negative so far MRSA nares negative Continue cefepime for antibiotic coverage Musculoskeletal: Decubitus ulcer prevention protocol Lines: Femoral art line Peripheral access Posada catheter for BPH Prophylaxis: heparin, pantoprazole Quality Stroke Does the patient have a stroke diagnosis?: No VTE Prior VTE?: No VTE Risk Level:: Medical - moderate - high VTE Device Contraindication: Treatment Not Indicated VTE Drug Contraindication: N/A - Med Ordered
[2024-05-08 17:33] LABS: Glucose, Whole Blood 182 mg/dL (60-115)
[2024-05-08] MEDS: Parenteral Nutrition 2,040 ML 85 ML IV (21:27)
[2024-05-08 23:26] LABS: Glucose, Whole Blood 246 mg/dL (60-115)
[2024-05-09] VITALS (41 sets, daily range): BP systolic 91–130; BP diastolic 46–69; PULSE 112–133; RESP 18–33; TEMP 36.6–37.7; O2SAT 90–98
[2024-05-09] MEDS: Piperacillin Sodium/Tazobactam 4.5 GM in 0.9 % Sodium Chloride 100 ML IV ×2 (01:34→14:33)
[2024-05-09] MEDS: Phenylephrine HCL 100 MG in 0.9 % Sodium Chloride 250 ML 24.65 MG IVCONT ×2 (03:18→13:04)
[2024-05-09] MEDS: Vasopressin 20 UNIT/100 ML INFUS..BTL 6 UNIT IVCONT (03:20)
[2024-05-09 04:32] LABS: ABG Base Excess -3.1 mmol/L; ABG HCO3 23 mmol/L (22-26); ABG pCO2 47 mmHg (32-45); ABG pH 7.29 (7.35-7.45); ABG pO2 136 mmHg (83-108)
[2024-05-09 04:38] LABS: Hematocrit 26.9 % (42.0-52.0); Hemoglobin 8.1 g/dl (14.0-18.0); Mean Corpuscular HGB Conc 30.1 g/dl (31.0-36.0); Mean Corpuscular Hemoglobin 27.6 pg (27.0-33.0); Mean Corpuscular Volume 91.8 fL (80.0-98.0); Mean Platelet Volume 11.3 fL (9.4-12.4); NRBC Pct Auto 0.2 /100WBC (0.0-0.2); Platelet Count 140 X10*3/uL (160-400); Red Blood Count 2.93 X10*6/uL (4.60-5.80); Red Cell Distribution Width 20.1 % (11.0-16.0); White Blood Count 18.7 X10*3/uL (4.8-10.8)
[2024-05-09 04:56] LABS: Albumin Level 3.2 g/dL (3.5-5.0); Anion Gap 18 (12-20); Blood Urea Nitrogen 98 mg/dL (9-16); Carbon Dioxide 22 mmol/L (22-29); Chloride 107 mmol/L (96-108); Creatinine Clr Calc Pharmacy 23.3; Estimated Glomerular Filt Rate 23; Glucose Random 293 mg/dL (60-115); Magnesium 2.2 mg/dL (1.6-2.6); Phosphorus 4.9 mg/dL (2.7-4.5); Potassium 4.7 mmol/L (3.3-5.1); Sodium 142 mmol/L (135-145)
[2024-05-09] MEDS: Heparin Sodium,Porcine 5,000 UNIT/ML VIAL 5000 UNIT SUBCUT ×3 (06:23→23:49)
[2024-05-09] MEDS: Pantoprazole Sodium 40 MG/10 ML VIAL IVPUSH (06:23)
[2024-05-09] MEDS: Insulin Lispro 100 UNIT/ML 3 ML VIAL SUBCUT ×3 (06:24→18:12)
[2024-05-09] MEDS: 0.9 % Sodium Chloride Flush 3 ML SYRINGE IVFLUSH ×3 (07:54→23:50)
[2024-05-09] MEDS: prednisoLONE Acetate 1 % Oph Susp 5 ML DRPBTL 1 DROP EYE-LEFT (10:55)
--- NOTE | 2024-05-09 11:19 | MHC.CLN ---
F/U PATIENT EXTUBATED 05/07. PT REMAINS NPO WITH PPN DUE TO GASTRIC CANCER. REVIEWED LABS. COMMUNICATED WITH PHARMACY.. RECOMMEND CONTINUE PPN AT MAX GOAL RATE 85 ML/HR ADD 82 G LIPIDS TO PROVIDE 1860 KCALS (30 KCALS/KG IBW), 204 G DEXTROSE, 87 G PROTEIN (1.4 G/KG IBW). REPLETE LYTES NEEDED. CONTINUE TO MONITOR LABS AND PPN TOLERANCE.
[2024-05-09] MEDS: Albuterol/Iprat 2.5/0.5MG 3 ML AMPUL.NEB INHALE ×3 (11:33→19:35)
[2024-05-09 12:04] LABS: Glucose, Whole Blood 298 mg/dL (60-115)
--- NOTE | 2024-05-09 12:17 | P.PNCC_ITS ---
Subjective Subjective Date of Service: 05/09/24 Critical Care Time (minutes): 60 Physical Exam 2 Vital Signs: Vital Signs: Last Vital Signs Temp 97.8 F 05/09/24 08:00 Pulse 114 H 05/09/24 11:37 Resp 29 H 05/09/24 11:37 BP 130/66 05/09/24 11:00 Pulse Ox 98 05/09/24 11:00 O2 Del Method Oxymask 05/09/24 11:00 O2 Flow Rate 1.5 05/09/24 11:00 FiO2 28 05/07/24 15:31 Oxygen Flow Rate 1.5 05/09/24 07:55 BMI result Body Mass Index 28.9 Const: General: comfortable, no acute distress and well developed O rientation/consciousness: oriented to person HEENT: Head: Yes normal to inspection, Yes normocephalic and Yes atraumatic Eyes: General: appearance normal, both eyes and all related structures Neck: Neck: Yes normal visual inspection, Yes full ROM, Yes no meningeal signs, Yes trachea midline and Yes supple Chest: Chest palpation & inspection: normal inspection of the chest Resp: Other: appreciable end-expiratory wheezing; no appreciable rales, rhonchi Effort & Inspection: normal respiratory effort Cardio: Rate: tachycardic Rhythm: regular rhythm GI: Inspection: Yes normal to inspection, No Abdominal wall edema and No distended Palpation (GI): Soft to palpation, not firm, nontender, no guarding and not rigid Skin: General skin exam: no rashes or lesions noted Neuro: General: oriented to person, tone normal, moves all extremities, no meningeal signs and no focal motor deficits Extrem: General: Yes normal to inspection, Yes full ROM, Yes capillary refill normal and Yes no clubbing, cyanosis or edema Psych: Appearance: grossly normal Objective Data Labs 05/09/24 04:22 05/09/24 04:22 Labs: Laboratory Results - last 24 hr 05/08/24 05/08/24 05/09/24 17:19 23:22 04:22 WBC 18.7 H RBC 2.93 L Hgb 8.1 L Hct 26.9 L MCV 91.8 MCH 27.6 MCHC 30.1 L RDW 20.1 H Plt Count 140 L MPV 11.3 Absolute Nucleated RBC 0.040 H Nucleated RBC % (auto) 0.2 O2 Saturation ABG pH at Pt Temp ABG pCO2 at Pt Temp ABG pO2 at Pt Temp ABG HCO3 ABG Base Excess (Actual) Sodium 142 Potassium 4.7 Chloride 107 Carbon Dioxide 22 Anion Gap 18 BUN 98 H Creatinine 2.77 H Estim Creat Clear Calc 23.3 Estimated GFR 23 POC Glucose 182 H 246 H Random Glucose 293 H Calcium 9.0 Phosphorus 4.9 H Magnesium 2.2 Albumin 3.2 L 05/09/24 05/09/24 04:26 12:00 WBC RBC Hgb Hct MCV MCH MCHC RDW Plt Count MPV Absolute Nucleated RBC Nucleated RBC % (auto) O2 Saturation 100.0 ABG pH at Pt Temp 7.29 L ABG pCO2 at Pt Temp 47 H ABG pO2 at Pt Temp 136 H ABG HCO3 23 ABG Base Excess (Actual) -3.1 Sodium Potassium Chloride Carbon Dioxide Anion Gap BUN Creatinine Estim Creat Clear Calc Estimated GFR POC Glucose 298 H Random Glucose Calcium Phosphorus Magnesium Albumin Microbiology Microbiology Results: Microbiology 05/02/24 07:09 Blood - Venous Blood Culture - Final No growth after 5 days. 05/02/24 07:09 Blood - Venous Blood Culture - Final No growth after 5 days. Progress Note: A&P Assessment and plan (1) Aspiration pneumonia: Status: Acute (2) Gastric cancer: Status: Acute Plan Patient is a 74 Y M w/ schizoaffective disorder, hypertension, gastric cancer c/b metastasis on chemotherapy initially presenting on 04/25 w/ abdominal pain; hospital course c/b aspiration, acute hypoxic respiratory failure, intubated on 05/02, extubated 05/07, and shock c/b multi-system organ failure including hepatic and renal failure N: encephalopathy, unclear baseline CV: shock, likely septic; phenylephrine and vasopressin gtt, to cross-titrate to norepinephrine gtt R: acute hypoxic respiratory failure d/t aspiration, intubated 05/02, extuabted 05/07 GI: gastric cancer c/b gastric outlet obstruction, metastasis on chemotherapy; hiatal hernia c/b dilated esophagus; PPN : acute renal insufficiency, stable; to closely monitor renal indices, electrolytes H: no acute issues ID: c/f septic shock, on vancomycin, cefepime E: hyperglycemia; insulin regimen P: no acute issues; schizoaffective disorder Quality Stroke Does the patient have a stroke diagnosis?: No VTE Prior VTE?: No VTE Risk Level:: Medical - moderate - high VTE Device Contraindication: Treatment Not Indicated VTE Drug Contraindication: N/A - Med Ordered
[2024-05-09] MEDS: Albumin Human 25 % 50 ML 100 ML IV (13:03)
[2024-05-09] MEDS: cefEPime HCl/D5W 2 GM/50 ML PIGGYBACK IV (14:36)
[2024-05-09] MEDS: vancomycin/NS 2,000 MG/500 ML PLAST..BAG 250 MG IV (14:36)
[2024-05-09] MEDS: Norepinephrine Bitartrate/D5W 8 MG/250 ML PLAST..BAG 7.38 MG IVCONT (15:16)
--- NOTE | 2024-05-09 15:33 | PHA.PROG ---
Admission Date/Time: April 25, 2024 15:05 Indication: Other Weight in k.7 kg Serum Creatinine - Last 168 Hours 05/02/24 05/02/24 05/03/24 16:32 20:32 04:13 Creatinine 1.24 1.49 H 1.86 H 05/03/24 05/04/24 05/05/24 15:44 04:40 05:07 Creatinine 2.34 H 2.90 H 3.49 H 05/06/24 05/07/24 05/08/24 05:25 04:30 04:10 Creatinine 3.40 H 3.23 H 2.76 H 05/08/24 05/09/24 04:10 04:22 Creatinine 2.91 H 2.77 H Estimated CrCl and GFR - Last 168 Hours 05/02/24 05/02/24 05/03/24 16:32 20:32 04:13 Estim Creat Clear Calc 52.6 43.7 35.0 Estimated GFR 57 46 36 05/03/24 05/04/24 05/05/24 15:44 04:40 05:07 Estim Creat Clear Calc 24.8 20.0 19.0 Estimated GFR 28 21 17 05/06/24 05/07/24 05/08/24 05:25 04:30 04:10 Estim Creat Clear Calc 19.3 20.3 23.4 Estimated GFR 18 19 05/08/24 05/08/24 05/09/24 04:10 04:10 04:22 Estim Creat Clear Calc 22.2 23.3 Estimated GFR 23 21 23 Vancomycin Loading Dose: 2,000mg Current Vancomycin Dosing Regimen: 750mg q24h Vancomycin Monitoring using AUC goal of 400 - 600 range with trough as surrogate marker: 545, predicted trough 19 Date and Time for next Vancomycin Level to be drawn: 05/10 @1200 Pharmacist Comments on Vancomycin Plan: getting trough after load before 2nd dose due to poor renal function Vancomycin dosing will take advantage of [employer] as a clinical decision support tool that uses Bayesian modeling to calculate individual patient's pharmacokinetic parameters and forecast the patient's drug concentration time course with the target goal AUC 24 range of 400 - 600 mg/L/hr.
--- NOTE | 2024-05-09 17:17 | MHC.SL.SWA ---
Speech Pathologist Impression: Significant pharyngeal dysphagia s/p episode of acute pharyngeoesophageal event; recc daily UPPER LINING CEMENTER tx to strengthen swallow mechanism and re-assess PO tolerance when indicated Risk of Aspiration Due to: Poor PO Intake Reduced Cognition Dysphasia Diet Status: NPO strict, pt has TPN for nutrition Liquid Consistency and Strategies for Safe Swallow: Liquid Intake Recommendation: NPO Liquid Intake Strategies: Solid Food Consistency: Dietary Recommendations: NPO Additional Modifications to Solid Foods: Oral Medication Intake: NPO Please contact the pharmacy regarding appropriate crushable or liquid drug formulations that are available whenever modified delivery is recommended. Compensatory Strategies and Precautions to be Taken for Safe Swallow: Sitting Upright (90 deg) Small Bites and Sips Alternate Liquids/Solids Rate of Ingestion Change Supervision While Eating and Drinking for Safe Swallow: Foods to Avoid: Swallowing Recommended Treatments: Thermal Stimulation Compens. Strategy Educat. Recommendation for Speech: Inpatient Speech Therapy Comment: Frequency/Duration: M-F daily Date Range for Service Req: Timeline to reassess: [employer] [facility] Clinican/Clinical Fellow: No Supervisory Statement: I have reviewed and agree with the student/clinical fellow's documentation: N/A Speech Language Pathologist: Hien Strauss M.S., CCC-UPPER LINING CEMENTER
[2024-05-09 18:01] LABS: Glucose, Whole Blood 272 mg/dL (60-115)
[2024-05-09] MEDS: Furosemide 20 MG/2 ML VIAL IVPUSH (18:12)
--- NOTE | 2024-05-09 19:00 | PC.NURSE ---
Late entry:? Assumed care patient 05/09/24? at 0700. Patient is awake, alert to self, affect flat, vague during assessment, legs and hands restless in bed, requiring redirection, but pleasant and cooperative with care.? See shift assessment for full head to toe. Throughout the course of shift, patient's mental status worsened slightly. Still awake and alert to self, but less verbally responsive with questions, intermittent command following and increases WOB. O2 requirement oscillating between 1 to 3 liters oxymask. Breath sounds wet.? Per speech therapy - failed swallow evaluation and absent?swallow reflex. Advised to keep patient?NPO and will reassess. Provider made aware.? Patient pulling at?medical devices - IV dressing reinforced with gauze and large window dressing.? Patient titrated off phenylephrine and changed over to levophed per MD. Vasopressin discontinued by MD. See MAR for titrations and administration.? RN to RN given approximately 18:55. Handed off care at 19:00 on 05/09/24
[2024-05-09] MEDS: Parenteral Nutrition 2,040 ML 85 ML IV (21:00)
[2024-05-10] VITALS (42 sets, daily range): BP systolic 91–124; BP diastolic 41–71; PULSE 24–116; RESP 17–34; TEMP 34.2–37.5; O2SAT 91–100; BMI 24.8
[2024-05-10] MEDS: Insulin Lispro 100 UNIT/ML 3 ML VIAL SUBCUT ×5 (00:05→23:55)
[2024-05-10 00:06] LABS: Glucose, Whole Blood 270 mg/dL (60-115)
[2024-05-10] MEDS: Piperacillin Sodium/Tazobactam 4.5 GM in 0.9 % Sodium Chloride 100 ML IV ×2 (02:08→13:20)
[2024-05-10 05:45] LABS: Glucose, Whole Blood 278 mg/dL (60-115)
[2024-05-10 05:46] LABS: ABG Base Excess -2.5 mmol/L; ABG HCO3 25 mmol/L (22-26); ABG pCO2 59 mmHg (32-45); ABG pH 7.23 (7.35-7.45); ABG pO2 84 mmHg (83-108)
[2024-05-10] MEDS: Heparin Sodium,Porcine 5,000 UNIT/ML VIAL 5000 UNIT SUBCUT ×3 (05:59→23:14)
[2024-05-10 06:00] LABS: Hematocrit 25.4 % (42.0-52.0); Hemoglobin 7.5 g/dl (14.0-18.0); Mean Corpuscular HGB Conc 29.5 g/dl (31.0-36.0); Mean Corpuscular Hemoglobin 27.8 pg (27.0-33.0); Mean Corpuscular Volume 94.1 fL (80.0-98.0); Mean Platelet Volume 11.6 fL (9.4-12.4); NRBC Pct Auto 0.3 /100WBC (0.0-0.2); Platelet Count 132 X10*3/uL (160-400); White Blood Count 12.4 X10*3/uL (4.8-10.8)
[2024-05-10 06:09] LABS: Albumin Level 3.2 g/dL (3.5-5.0)
[2024-05-10] MEDS: propofoL 200 MG/20 ML VIAL 100 MG IVPUSH (06:21)
[2024-05-10 06:25] LABS: Anion Gap 13 (12-20); Blood Urea Nitrogen 98 mg/dL (9-16); Calcium 9.4 mg/dL (8.4-10.2); Carbon Dioxide 24 mmol/L (22-29); Chloride 112 mmol/L (96-108); Creatinine Clr Calc Pharmacy 22.6; Estimated Glomerular Filt Rate 25; Glucose Random 296 mg/dL (60-115); Magnesium 2.2 mg/dL (1.6-2.6); Phosphorus 3.1 mg/dL (2.7-4.5); Potassium 4.2 mmol/L (3.3-5.1); Sodium 145 mmol/L (135-145)
[2024-05-10] MEDS: propofoL 1,000 MG/100 ML VIAL 12.15 MG IVCONT ×2 (06:25→11:27)
--- NOTE | 2024-05-10 06:37 | W.PM.CCHP ---
Procedures Date of Service Date of Service: 05/10/24 Arterial Line Size (Gauge): 20 Intubation Intubation Comments: The pt was preoxygenated with the Ambu-bag 100%. ?RSI was carried out with the meds below.?Copious amount of thick, tenacious sputum suctioned from the oropharynx. The glottis was visualized with 4 GlideScope, and the trachea was intubated with a 7.5 ETT via?indirect video visualization, atraumatic.?BSBE, +CO2, SpO2 maintained.?The tube was secured at 25 cm at the upper lip.The patient tolerated the procedure well with no complications.? Placement confirmed with chest x-ray. Consent for Procedure: Emergent-no informed consent obtained Time out performed: Yes Sedative: propofol Mg given: 100 Laryngoscope: fiber optic video scope ET tube size: 7.5 ET tube uncuffed: Yes Tube secured depth (cm): 25 Tube secured location: lips Tube placement confirmation: visualized tube passing through cords, equal breath sounds bilaterally, no breath sounds over epigastrium and confirmation by capnometry Patient tolerated procedure: well and no complications Intubation complications: none
[2024-05-10 06:40] LABS: TSH reflex Free T4 2.72 uIU/mL (0.32-4.0)
[2024-05-10] MEDS: Norepinephrine Bitartrate/D5W 8 MG/250 ML PLAST..BAG 22.13 MG IVCONT ×2 (06:41→17:51)
[2024-05-10 06:45] LABS: Cortisol Random 21.6 ug/dL
[2024-05-10 06:48] LABS: Band Neutrophils Percent 6 % (3-5); Basophils Abs Manual 0.1 X10*3/uL (0.0-0.2); Basophils Percent Manual 1 % (0-2); Metamyelocytes Absolute 0.9 X10*3/uL; Metamyelocytes Percent 7 %; Monocytes Absolute Manual 0.6 X10*3/uL (0.1-1.2); Monocytes Percent Manual 5 % (2-11); Myelocytes Absolute 0.2 X10*/uL; Myelocytes Percent 2 %; Neutrophils Absolute Manual 10.5 X10*3/uL (2.0-8.3); Neutrophils Percent Manual 79 % (45-73)
[2024-05-10 06:50] LABS: Basophilic Stippling 1+ (0-2) /OIF; Hypochromasia 1+ (5-14) /OIF; Ovalocytes 1+ (5-14) /OIF; Platelet Estimate DECREASED (NORMAL); Platelet Morphology Comment NORMAL; RBC Morphology NOTED; Schistocytes 1+ (0-2) /OIF; Tear Drop Cells 1+ (0-2) /OIF
[2024-05-10 06:51] LABS: Polychromasia 1+ (0-2) /OIF
--- NOTE | 2024-05-10 07:30 | PC.NURSE ---
Decision was made to intubate the patient based on the patient's morning ABG, lethargy and inability to manage secretions. Patient was given 50 mg propofol at 0621 and another 50 mg at 0623, propofol drip was initiated at 0625 per provider (see eMAR). Copious amounts of tenacious oral secretions needed to be evacuated before intubation. Patient was intubated at 0631 with a 7.5 ett at 25 at the lip. Patient was placed on ACVC settings rate 18, tidal volume 350, peep 5 at 60%.
[2024-05-10] MEDS: Albuterol/Iprat 2.5/0.5MG 3 ML AMPUL.NEB INHALE ×4 (07:55→19:47)
[2024-05-10] MEDS: Furosemide 20 MG/2 ML VIAL IVPUSH ×2 (09:15→17:40)
[2024-05-10] MEDS: prednisoLONE Acetate 1 % Oph Susp 5 ML DRPBTL 1 DROP EYE-LEFT (09:15)
--- NOTE | 2024-05-10 10:05 | P.PNCC_ITS ---
Subjective Subjective Date of Service: 05/10/24 Interval History: interval worsening mental status 05/10 AM, found to be hypercarbic, urgently intubated during which copious secretions found in oropharynx Critical Care Time (minutes): 60 Physical Exam 2 Vital Signs: Vital Signs: Last Vital Signs Temp 98.1 F 05/10/24 09:00 Pulse 100 05/10/24 09:00 Resp 17 05/10/24 09:00 BP 118/55 L 05/10/24 09:15 Pulse Ox 97 05/10/24 09:00 O2 Del Method Mechanical Ventil ation 05/10/24 09:00 O2 Flow Rate 1 05/10/24 06:00 FiO2 30 05/10/24 09:00 Oxygen Flow Rate 30 05/10/24 08:00 BMI result Body Mass Index 24.8 Const: Other: intubated, minimally sedated; opens eyes spontaneously; appreciable spontaneous movements General: well developed; No no acute distress HEENT: Head: Yes normal to inspection, Yes normocephalic and Yes atraumatic Eyes: General: appearance normal, both eyes and all related structures Neck: Neck: Yes normal visual inspection, Yes full ROM, Yes no meningeal signs, Yes trachea midline and Yes supple Chest: Chest palpation & inspection: normal inspection of the chest Resp: Other: some appreciable rhonchi; no appreciable overt rales, wheezing Effort & Inspection: normal respiratory effort Cardio: Rate: regular rate Rhythm: regular rhythm GI: Inspection: Yes normal to inspection, No Abdominal wall edema and No distended Palpation (GI): Soft to palpation, not firm, nontender, no guarding and not rigid Skin: General skin exam: no rashes or lesions noted Neuro: General: tone normal, moves all extremities and no meningeal signs Extrem: Other: appreciable 1+ pitting edema to bilateral shins General: Yes normal to inspection, Yes full ROM and Yes capillary refill normal Psych: Other: unable to assess Objective Data Labs 05/10/24 05:35 05/10/24 05:35 Labs: Laboratory Results - last 24 hr 05/09/24 05/09/24 05/10/24 12:00 17:45 00:00 WBC RBC Hgb Hct MCV MCH MCHC RDW Plt Count MPV Immature Gran % (Auto) Neut % (Auto) Lymph % (Auto) [place] % (Auto) Eos % (Auto) Baso % (Auto) Lymph # (Auto) [place] # (Auto) Eos # (Auto) Baso # (Auto) Abs Immat Gran (auto) Absolute Neuts (auto) Absolute Nucleated RBC Nucleated RBC % (auto) Neutrophils % (Manual) Band Neutrophils % Monocytes % (Manual) Basophils % (Manual) Metamyelocytes % Myelocytes % Abs Neuts (Manual) Monocytes # (Manual) Basophils # (Manual) Metamyelocytes # Myelocytes # Platelet Estimate Plt Morphology Comment RBC Morphology Polychromasia Hypochromasia Basophilic Stippling Tear Drop Cells Ovalocytes Schistocytes O2 Saturation ABG pH at Pt Temp ABG pCO2 at Pt Temp ABG pO2 at Pt Temp ABG HCO3 ABG Base Excess (Actual) Sodium Potassium Chloride Carbon Dioxide Anion Gap BUN Creatinine Estim Creat Clear Calc Estimated GFR POC Glucose 298 H 272 H 270 H Random Glucose Calcium Phosphorus Magnesium Albumin TSH Random Cortisol 05/10/24 05/10/24 05/10/24 05:32 05:35 05:41 WBC 12.4 H RBC 2.70 L Hgb 7.5 L Hct 25.4 L MCV 94.1 MCH 27.8 MCHC 29.5 L RDW 21.0 H Plt Count 132 L MPV 11.6 Immature Gran % (Auto) Cancelled Neut % (Auto) Cancelled Lymph % (Auto) Cancelled [place] % (Auto) Cancelled Eos % (Auto) Cancelled Baso % (Auto) Cancelled Lymph # (Auto) Cancelled [place] # (Auto) Cancelled Eos # (Auto) Cancelled Baso # (Auto) Cancelled Abs Immat Gran (auto) Cancelled Absolute Neuts (auto) Cancelled Absolute Nucleated RBC 0.040 H Nucleated RBC % (auto) 0.3 H Neutrophils % (Manual) 79 H Band Neutrophils % 6 H Monocytes % (Manual) 5 Basophils % (Manual) 1 Metamyelocytes % 7 Myelocytes % 2 Abs Neuts (Manual) 10.5 H Monocytes # (Manual) 0.6 Basophils # (Manual) 0.1 Metamyelocytes # 0.9 Myelocytes # 0.2 Platelet Estimate DECREASED Plt Morphology Comment NORMAL RBC Morphology NOTED Polychromasia 1+ (0-2) Hypochromasia 1+ (5-14) Basophilic Stippling 1+ (0-2) Tear Drop Cells 1+ (0-2) Ovalocytes 1+ (5-14) Schistocytes 1+ (0-2) O2 Saturation 96.0 ABG pH at Pt Temp 7.23 L ABG pCO2 at Pt Temp 59 H ABG pO2 at Pt Temp 84 ABG HCO3 25 ABG Base Excess (Actual) -2.5 Sodium 145 Potassium 4.2 Chloride 112 H Carbon Dioxide 24 Anion Gap 13 BUN 98 H Creatinine 2.57 H Estim Creat Clear Calc 22.6 Estimated GFR 25 POC Glucose 278 H Random Glucose 296 H Calcium 9.4 Phosphorus 3.1 Magnesium 2.2 Albumin 3.2 L TSH 2.72 Random Cortisol 21.6 Microbiology Microbiology Results: Microbiology 05/02/24 07:09 Blood - Venous Blood Culture - Final No growth after 5 days. 05/02/24 07:09 Blood - Venous Blood Culture - Final No growth after 5 days. Progress Note: A&P Assessment and plan (1) Respiratory failure with hypoxia and hypercapnia: Status: Acute (2) Aspiration pneumonia: Status: Acute (3) Gastric outlet obstruction: Status: Acute (4) Shock: Status: Acute Plan Patient is a 74 Y M w/ schizoaffective disorder, hypertension, gastric cancer c/b metastasis on chemotherapy initially presenting on 04/25 w/ abdominal pain; hospital course c/b aspiration, acute hypoxic respiratory failure, intubated on 05/02, extubated 05/07, re-intubated 05/10, and shock c/b multi-system organ failure including hepatic and renal failure N: encephalopathy, unclear baseline when not intubated; now intubated, sedated w/ propofol gtt, wean as tolerated CV: shock, likely septic; norepinephrine gtt, wean as tolerated R: acute hypoxic respiratory failure d/t recurrent aspiration, intubated 05/02, extubated 05/07, re-intubated 05/10 GI: gastric cancer c/b gastric outlet obstruction, metastasis on chemotherapy; hiatal hernia c/b dilated esophagus; PPN : acute renal insufficiency, stable; to closely monitor renal indices, electrolytes H: no acute issues ID: c/f septic shock, on vancomycin, cefepime E: hyperglycemia; insulin regimen P: no acute issues; schizoaffective disorder; of note, unreachable/no known contacts, to follow-up social work Quality Stroke Does the patient have a stroke diagnosis?: No VTE Prior VTE?: No VTE Risk Level:: Medical - moderate - high VTE Device Contraindication: N/A - Device Ordered VTE Drug Contraindication: N/A - Med Ordered
--- NOTE | 2024-05-10 10:10 | MHC.CLN ---
F/U PATIENT INTUBATED AND SEDATED THIS AM. PT REMAINS NPO WITH PPN DUE TO GASTRIC CANCER. REVIEWED LABS. COMMUNICATED WITH PHARMACY. RECOMMEND DISCONTINUE LIPIDS TODAY IN CONSIDERATION OF KCALS PROVIDED BY SEDATION. RECOMMEND PPN AT 85 ML/HR, TO PROVIDE 1040 KCALS, 204 G DEXTROSE, 87 G PROTEIN (1.4 G/KG IBW). REPLETE LYTES NEEDED. TOTAL KCALS WITH SEDATION 1360 KCALS (21.9 KCALS/KG IBW). MONITOR SEDATION MEDICATION AND ADJUST LIPIDS NEEDED. CONTINUE TO MONITOR LABS AND PPN TOLERANCE.
[2024-05-10 10:45] LABS: ABG Refer to POC result
[2024-05-10 12:06] LABS: Glucose, Whole Blood 317 mg/dL (60-115)
[2024-05-10 12:25] LABS: Vancomycin Random 24.1 mcg/mL (15-20)
[2024-05-10] MEDS: Albumin Human 25 % 50 ML 100 ML IV (13:12)
[2024-05-10] MEDS: cefEPime HCl/D5W 2 GM/50 ML PIGGYBACK IV (13:22)
--- NOTE | 2024-05-10 13:28 | MHC.CM.PN ---
Pt required reintubation earlier this am d/t downtrending lab values and pt lethargy. Pt from a [facility]: HCP on file is pt's brother Pool: phone number on file no longer in service. Attempting to contact other numbers from internet searches. Pt may require peg/trach / LTACH placement. Will need HCP or guardian. CM to call latest number [phone] again on 05/11. CM to follow.
[2024-05-10] MEDS: Insulin Regular, Human 100 UNIT/ML 10 ML VIAL IVPUSH (13:42)
[2024-05-10] MEDS: 0.9 % Sodium Chloride Flush 3 ML SYRINGE IVFLUSH ×2 (17:00→23:16)
[2024-05-10] MEDS: propofoL 1,000 MG/100 ML VIAL 20.25 MG IVCONT ×2 (17:02→21:54)
[2024-05-10 17:23] LABS: Glucose, Whole Blood 246 mg/dL (60-115)
[2024-05-10 18:45] LABS: Vancomycin Random 23.4 mcg/mL (15-20)
--- NOTE | 2024-05-10 19:03 | HE.PHANOTE ---
RE: VANCO DOSING Random came back as 23.4 mg/L, 6 hours after 24.1 mg/L. Hold dose and schedule trough for 05/11/24 @1200.
[2024-05-10] MEDS: Parenteral Nutrition 2,040 ML 85 ML IV (20:08)
[2024-05-10] MEDS: fentaNYL citrate/NS 1,000 MCG/100 ML PLAST..BAG 2.5 MCG IVCONT (21:50)
--- NOTE | 2024-05-10 23:07 | PC.NURSE ---
Assumed care of patient at 0700 on 05/10/24. Patient intubated just prior to this RN arrival at 06:30. Stable on the vent, see vent assessment, see vitals, see shift assessment for patient condition. Per protocol re-dressed right chest port and right femoral A-line. R chest port is patent, positive blood return, skin intact, clean, with no s/sx of infection. R femoral line is patent, positive blood return, skin intact, clean, with no s/sx of infection. Placed OGT, x-ray ordered per protocol to confirm placement. Per radiologist interpretation of the chest x-ray, ET tube drawn back 2 cm, now 23at lip.? Also requested alternative imaging to confirm placement of OG tube. Per MD no repeat imaging, instead pull OGT. No other events of note to report within this RN shift. RN to RN report given and patient care handed off at 19:00 on 05/10/24.?
[2024-05-10 23:57] LABS: Glucose, Whole Blood 278 mg/dL (60-115)
[2024-05-11] VITALS (39 sets, daily range): BP systolic 102–135; BP diastolic 47–61; PULSE 22–105; RESP 18–27; TEMP 34.2–37.1; O2SAT 93–97; BMI 25.0
[2024-05-11] MEDS: Piperacillin Sodium/Tazobactam 4.5 GM in 0.9 % Sodium Chloride 100 ML IV ×2 (01:16→13:03)
[2024-05-11] MEDS: propofoL 1,000 MG/100 ML VIAL 20.25 MG IVCONT ×2 (01:22→06:07)
[2024-05-11] MEDS: Norepinephrine Bitartrate/D5W 8 MG/250 ML PLAST..BAG 25.09 MG IVCONT ×3 (03:29→22:23)
[2024-05-11 05:34] LABS: ABG Base Excess 0.4 mmol/L; ABG HCO3 26 mmol/L (22-26); ABG pCO2 47 mmHg (32-45); ABG pH 7.34 (7.35-7.45); ABG pO2 79 mmHg (83-108)
[2024-05-11 05:40] LABS: ABG Refer to POC result
[2024-05-11 05:51] LABS: Hemoglobin 7.6 g/dl (14.0-18.0); Mean Corpuscular HGB Conc 30.4 g/dl (31.0-36.0); Mean Corpuscular Hemoglobin 27.8 pg (27.0-33.0); Mean Corpuscular Volume 91.6 fL (80.0-98.0); Mean Platelet Volume 10.3 fL (9.4-12.4); NRBC Pct Auto 0.5 /100WBC (0.0-0.2); Platelet Count 164 X10*3/uL (160-400); Red Blood Count 2.73 X10*6/uL (4.60-5.80); Red Cell Distribution Width 21.2 % (11.0-16.0)
[2024-05-11] MEDS: Heparin Sodium,Porcine 5,000 UNIT/ML VIAL 5000 UNIT SUBCUT ×3 (06:02→23:42)
[2024-05-11 06:13] LABS: Albumin Level 2.9 g/dL (3.5-5.0); Anion Gap 13 (12-20); Blood Urea Nitrogen 94 mg/dL (9-16); Calcium 9.5 mg/dL (8.4-10.2); Carbon Dioxide 23 mmol/L (22-29); Chloride 112 mmol/L (96-108); Creatinine Clr Calc Pharmacy 23.5; Estimated Glomerular Filt Rate 26; Glucose Random 293 mg/dL (60-115); Magnesium 2.1 mg/dL (1.6-2.6); Phosphorus 1.9 mg/dL (2.7-4.5); Potassium 3.8 mmol/L (3.3-5.1); Sodium 144 mmol/L (135-145)
[2024-05-11] MEDS: Insulin Lispro 100 UNIT/ML 3 ML VIAL SUBCUT ×4 (06:20→23:43)
[2024-05-11 06:23] LABS: Band Neutrophils Percent 5 % (3-5); Basophils Abs Manual 0.3 X10*3/uL (0.0-0.2); Basophils Percent Manual 2 % (0-2); Eosinophils Absolute Manual 0.5 X10*3/uL (0.0-0.4); Eosinophils Percent Manual 4 % (0-4); Lymphocytes Absolute Manual 0.4 X10*3/uL (1.2-4.9); Lymphocytes Percent Manual 3 % (20-40); Metamyelocytes Absolute 0.4 X10*3/uL; Metamyelocytes Percent 3 %; Monocytes Absolute Manual 0.9 X10*3/uL (0.1-1.2); Monocytes Percent Manual 7 % (2-11); Myelocytes Absolute 0.1 X10*/uL; Myelocytes Percent 1 %; Neutrophils Absolute Manual 10.4 X10*3/uL (2.0-8.3); Neutrophils Percent Manual 75 % (45-73)
[2024-05-11 06:24] LABS: Microcytosis 1+ (5-14) /OIF; Ovalocytes 1+ (5-14) /OIF; Platelet Estimate NORMAL (NORMAL); Platelet Morphology Comment NORMAL; RBC Morphology NOTED
[2024-05-11 06:25] LABS: Basophilic Stippling 1+ (0-2) /OIF; Hypochromasia 1+ (5-14) /OIF; Polychromasia 1+ (0-2) /OIF; Spherocytes 1+ (0-2) /OIF; Tear Drop Cells 2+ (3-5) /OIF
--- NOTE | 2024-05-11 06:35 | PC.NURSE ---
Upon initial assessment, patient remains intubated and sedated. RASS -2, with breakthrough?restlessness. Fentanyl gtt added, see MAR. Pupils remain unequal, see assessment. SR/ST on tele, [id number]. A-line to right fem with appropriate waveform. Patient lungs diminished in the bases, otherwise clear. See vent assessment. Abdomen soft round and bowel soudns heard x4. PPN infusing per MAR. Posada catheter draining clear pale yellow urine. Skin with diffuse bruising, blanchable redness to buttocks, and MDPI to left forehead from O2 probe.?Patient occasionally moist from sweat, interdry applied where appropriate. Patient repositioned Q2, bed locked in lowest possible position, bed alarm on.?
--- NOTE | 2024-05-11 08:02 | PM.CCPN ---
Subjective Subjective Date of Service: 05/11/24 Interval History: no significant overnight events Critical Care Time (minutes): 60 Physical Exam Vital Signs: Vital Signs: Last Vital Signs Temp 98.1 F 05/11/24 07:00 Pulse 93 05/11/24 07:00 Resp 23 H 05/11/24 07:00 BP 120/54 L 05/11/24 07:00 Pulse Ox 96 05/11/24 07:00 O2 Del Method Mechanical Ventil ation 05/11/24 07:00 O2 Flow Rate 1 05/10/24 06:00 FiO2 30 05/11/24 07:00 Oxygen Flow Rate 30 05/10/24 08:00 BMI result Body Mass Index 25.0 Const: Other: intubated, sedated; appreciable spontaneous movements, grimacing General: no acute distress HEENT: Head: Yes normal to inspection, Yes normocephalic and Yes atraumatic Eyes: General: appearance normal, both eyes and all related structures Neck: Neck: Yes normal visual inspection, Yes full ROM, Yes no meningeal signs, Yes trachea midline and Yes supple Chest: Chest palpation & inspection: normal inspection of the chest Resp: Other: no appreciable overt rales, rhonchi, wheezing Effort & Inspection: normal respiratory effort Cardio: Rate: regular rate Rhythm: regular rhythm GI: Inspection: Yes normal to inspection, No Abdominal wall edema and No distended Palpation (GI): Soft to palpation, not firm, nontender, no guarding and not rigid Skin: General skin exam: no rashes or lesions noted Neuro: General: tone normal, moves all extremities and no meningeal signs Extrem: Other: appreciable 1+ pitting edema to bilateral shins General: Yes normal to inspection, Yes full ROM and Yes capillary refill normal Psych: Other: unable to assess Objective Data Labs 05/11/24 05:31 05/11/24 05:31 Labs: Laboratory Results - last 24 hr 05/10/24 05/10/24 05/10/24 11:51 12:02 17:20 WBC RBC Hgb Hct MCV MCH MCHC RDW Plt Count MPV Immature Gran % (Auto) Neut % (Auto) Lymph % (Auto) [place] % (Auto) Eos % (Auto) Baso % (Auto) Lymph # (Auto) [place] # (Auto) Eos # (Auto) Baso # (Auto) Abs Immat Gran (auto) Absolute Neuts (auto) Absolute Nucleated RBC Nucleated RBC % (auto) Neutrophils % (Manual) Band Neutrophils % Lymphocytes % (Manual) Monocytes % (Manual) Eosinophils % (Manual) Basophils % (Manual) Metamyelocytes % Myelocytes % Abs Neuts (Manual) Lymphocytes # (Manual) Monocytes # (Manual) Eosinophils # (Manual) Basophils # (Manual) Metamyelocytes # Myelocytes # Platelet Estimate Plt Morphology Comment RBC Morphology Polychromasia Hypochromasia Basophilic Stippling Microcytosis Spherocytes Tear Drop Cells Ovalocytes O2 Saturation ABG pH at Pt Temp ABG pCO2 at Pt Temp ABG pO2 at Pt Temp ABG HCO3 ABG Base Excess (Actual) Sodium Potassium Chloride Carbon Dioxide Anion Gap BUN Creatinine Estim Creat Clear Calc Estimated GFR POC Glucose 317 H 246 H Random Glucose Calcium Phosphorus Magnesium Albumin Random Vancomycin 24.1 H 05/10/24 05/10/24 05/11/24 18:19 23:53 05:31 WBC 13.0 H RBC 2.73 L Hgb 7.6 L Hct 25.0 L MCV 91.6 MCH 27.8 MCHC 30.4 L RDW 21.2 H Plt Count 164 MPV 10.3 Immature Gran % (Auto) Cancelled Neut % (Auto) Cancelled Lymph % (Auto) Cancelled [place] % (Auto) Cancelled Eos % (Auto) Cancelled Baso % (Auto) Cancelled Lymph # (Auto) Cancelled [place] # (Auto) Cancelled Eos # (Auto) Cancelled Baso # (Auto) Cancelled Abs Immat Gran (auto) Cancelled Absolute Neuts (auto) Cancelled Absolute Nucleated RBC 0.060 H Nucleated RBC % (auto) 0.5 H Neutrophils % (Manual) 75 H Band Neutrophils % 5 Lymphocytes % (Manual) 3 L Monocytes % (Manual) 7 Eosinophils % (Manual) 4 Basophils % (Manual) 2 Metamyelocytes % 3 Myelocytes % 1 Abs Neuts (Manual) 10.4 H Lymphocytes # (Manual) 0.4 L Monocytes # (Manual) 0.9 Eosinophils # (Manual) 0.5 H Basophils # (Manual) 0.3 H Metamyelocytes # 0.4 Myelocytes # 0.1 Platelet Estimate NORMAL Plt Morphology Comment NORMAL RBC Morphology NOTED Polychromasia 1+ (0-2) Hypochromasia 1+ (5-14) Basophilic Stippling 1+ (0-2) Microcytosis 1+ (5-14) Spherocytes 1+ (0-2) Tear Drop Cells 2+ (3-5) Ovalocytes 1+ (5-14) O2 Saturation 96.0 ABG pH at Pt Temp 7.34 L ABG pCO2 at Pt Temp 47 H ABG pO2 at Pt Temp 79 L ABG HCO3 26 ABG Base Excess (Actual) 0.4 Sodium 144 Potassium 3.8 Chloride 112 H Carbon Dioxide 23 Anion Gap 13 BUN 94 H Creatinine 2.47 H Estim Creat Clear Calc 23.5 Estimated GFR 26 POC Glucose 278 H Random Glucose 293 H Calcium 9.5 Phosphorus 1.9 L Magnesium 2.1 Albumin 2.9 L Random Vancomycin 23.4 H Microbiology Microbiology Results: Microbiology 05/02/24 07:09 Blood - Venous Blood Culture - Final No growth after 5 days. 05/02/24 07:09 Blood - Venous Blood Culture - Final No growth after 5 days. Progress Note: A&P Assessment and plan (1) Respiratory failure with hypoxia and hypercapnia: Status: Acute (2) Aspiration pneumonia: Status: Acute (3) Gastric cancer: Status: Acute (4) Shock: Status: Acute Plan Patient is a 74 Y M w/ schizoaffective disorder, hypertension, gastric cancer c/b metastasis on chemotherapy initially presenting on 04/25 w/ abdominal pain; hospital course c/b aspiration, acute hypoxic respiratory failure, intubated on 05/02, extubated 05/07, re-intubated 05/10, and shock c/b multi-system organ failure including hepatic and renal failure N: encephalopathy, unclear baseline when not intubated; now intubated, sedated w/ propofol, fentanyl gtts, wean as tolerated CV: shock, likely septic; norepinephrine gtt, wean as tolerated R: acute hypoxic respiratory failure d/t recurrent aspiration, intubated 05/02, extubated 05/07, re-intubated 05/10 GI: gastric cancer c/b gastric outlet obstruction, metastasis on chemotherapy; hiatal hernia c/b dilated esophagus; PPN : acute renal insufficiency, stable; to closely monitor renal indices, electrolytes H: no acute issues ID: c/f septic shock, on vancomycin, cefepime E: hyperglycemia; insulin regimen P: no acute issues; schizoaffective disorder; of note, unreachable/no known contacts to discuss/consent for care, to follow-up social work Quality Stroke Does the patient have a stroke diagnosis?: No VTE Prior VTE?: No VTE Risk Level:: Medical - moderate - high VTE Device Contraindication: N/A - Device Ordered VTE Drug Contraindication: N/A - Med Ordered
[2024-05-11] MEDS: Albuterol/Iprat 2.5/0.5MG 3 ML AMPUL.NEB INHALE ×4 (08:11→22:46)
[2024-05-11] MEDS: 0.9 % Sodium Chloride Flush 3 ML SYRINGE IVFLUSH ×3 (08:13→20:51)
[2024-05-11] MEDS: Famotidine/PF 20 MG/2 ML VIAL IVPUSH (08:13)
[2024-05-11] MEDS: Potassium Phosphate/NS 15 MMOL/250 ML PLAST..BAG 62.5 MMOL IV ×2 (08:13→12:29)
[2024-05-11] MEDS: prednisoLONE Acetate 1 % Oph Susp 5 ML DRPBTL 1 DROP EYE-LEFT (08:14)
[2024-05-11] MEDS: Furosemide 20 MG/2 ML VIAL 40 MG IVPUSH ×2 (08:17→18:20)
--- NOTE | 2024-05-11 09:30 | MHC.CM.PN ---
Received call from Pool Muñiz pt's HCP/brother. Pool states he will serve as his brother's medical decision maker and [place] [facility]
--- NOTE | 2024-05-11 09:31 | MHC.CM.PN ---
Received call from Pool Muñiz, pt's brother/HCP: he states he will serve in HCP role for medical decisions: Pool will meet with MD today at 1pm for goals of care planning. Pt with hx of gastric cancer on chemo as well as multi organ system damage/failure. CM to assist w/d/c planning needs. Pool can be reached at [phone]
--- NOTE | 2024-05-11 10:20 | MHC.CLN ---
F/U PATIENT INTUBATED AND SEDATED. REMAINS NPO WITH PPN DUE TO GASTRIC CANCER. REVIEWED LABS. COMMUNICATED WITH PHARMACY. RECOMMEND CONTINUE NO LIPIDS TODAY IN CONSIDERATION OF KCALS PROVIDED BY SEDATION. RECOMMEND PPN AT 85 ML/HR, TO PROVIDE 1040 KCALS, 204 G DEXTROSE, 87 G PROTEIN (1.4 G/KG IBW). REPLETE LYTES NEEDED. TOTAL KCALS WITH SEDATION 1360 KCALS (21.9 KCALS/KG IBW). MONITOR SEDATION MEDICATION AND ADJUST LIPIDS NEEDED. CONTINUE TO MONITOR LABS AND PPN TOLERANCE. FOLLOW WITH TEAM FOR PLAN OF CARE.
[2024-05-11] MEDS: Chlorhexidine Gluc Oral Rinse 15 ML MOUTHWASH BUCCAL ×2 (10:30→20:50)
[2024-05-11] MEDS: Albumin Human 25 % 50 ML 100 ML IV (10:31)
[2024-05-11 12:04] LABS: Glucose, Whole Blood 255 mg/dL (60-115)
[2024-05-11] MEDS: cefEPime HCl/D5W 2 GM/50 ML PIGGYBACK IV (12:29)
[2024-05-11 12:45] LABS: Vancomycin Random 19.2 mcg/mL (15-20)
[2024-05-11] MEDS: propofoL 1,000 MG/100 ML VIAL 8.1 MG IVCONT (13:02)
--- NOTE | 2024-05-11 14:14 | HO.WOUND ---
Wound Consult: Follow up 74yr old?[place] [facility] - See progress notes and H&P for detailed history.? Wound consult follow up for Forehead device related pressure injury.? Patient is intubated and remains in ICU level of care. Forehead is noted for intact golf cart attendant purple tissue - starting to radhika to touch. Continue to off load pressure and not apply device to this location. No new topical recommendations needed at this time. 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 Device has since been off loaded - recommend continued off loading of site. Left Forehead - Continue to off load pressure from the site. Ensure all other devices are removed for skin assessment and sites rotated appropriately. If [place] Maxfast device securement wrap is used ensure pressure is not directed over device - only use when clinically indicated. To ensure better adhesive of the Forehead probe, cleanse skin dry well and apply skin prep prior to application. Detailed from last assessment: Buttock sacrum and coccyx assessed - no redness no skin integrity issues noted. There is a foam dressing in place at this time. The patient anatomy creates a pocket at the sacrum and there is concern for the foam to trap moisture. The foam was reapplied and placed with in the crease / pocket - direct care team informed to remove if foam dressing seems to continue to create pocket that could lead to skin break down. At this time no pigmentation changes noted. Patient has wedges in use with Q2hr turns, Heel protector boots in use as well needs SANJEEV pump direct care team will work to obtain. No topical recommendation needed at this time a side from SANJEEV pump application to mattress. Recommendations: 1. Turn and Reposition every 2 hours and as needed for patient comfort.? Use pillows or wedges to support off loading positions. 2. Off Load all bony prominences with use of pillows and heel boots if needed.? Apply Preventative foams where needed. ? 3. Monitor for incontinence and moisture control, use barrier creams when needed for prevention and treatment. 4. Provide adequate and supplemental nutrition.? 5. Order low air loss mattress. 6. When applicable maintain blood glucose levels per Providers order. 7. Sacrum - Assess foam when in use - if trapping moisture remove and use barrier cream in stead. Re-consult wound care Nurse for wound deterioration or wound changes.
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
[2024-05-11] MEDS: fentaNYL citrate/NS 1,000 MCG/100 ML PLAST..BAG 5 MCG IVCONT (14:58)
--- NOTE | 2024-05-11 15:09 | P.PNGS_ITS ---
Subjective Subjective Date of Service: 05/11/24 Interval history: I was asked to review benefit of tracheostomy and jejunostomy tube placement Patient intubated last night for respiratory failure secondary to aspiration He has known large moderately differentiated gastric adenocarcinoma, obstructing Physical Exam 2 Vital Signs: Vital Signs: Last Vital Signs Temp 98.4 F 05/11/24 14:00 Pulse 99 05/11/24 14:00 Resp 25 H 05/11/24 14:00 BP 102/47 L 05/11/24 14:00 Pulse Ox 94 05/11/24 14:00 O2 Del Method Mechanical Ventil ation 05/11/24 14:00 O2 Flow Rate 1 05/10/24 06:00 FiO2 30 05/11/24 14:00 Oxygen Flow Rate 30 05/11/24 08:00 BMI result Body Mass Index 25.0 Const: Other: On ventilator, intubated and sedated Resp: Other: On ventilator Cardio: Rate: regular rate GI: Other: No surgical scars Palpation (GI): Soft to palpation, not firm and nontender Objective Data Active Medications Albuterol/Ipratropium (Albuterol/Iprat 2.5/0.5mg 3 Ml Ampul.Neb) 3 ml INHALE RQ4H WHILE AWAKE [facility] Last Admin: 05/11/24 11:39 Dose: 3 ml Documented By: ABEL Chlorhexidine Gluconate (Chlorhexidine Gluc Oral Rinse 15 Ml Mouthwash) 15 ml BUCCAL BID [facility] Last Admin: 05/11/24 10:30 Dose: 15 ml Documented By: BAILEE Dextrose (Dextrose 50 % 25 Gm/50 Ml Syringe) 25 gm IVPUSH Q15M PRN; Protocol PRN Reason: per Hypoglycemia Standing Ord. Famotidine (Famotidine/Pf 20 Mg/2 Ml Vial) 20 mg IVPUSH DAILY [facility] Last Admin: 05/11/24 08:13 Dose: 20 mg Documented By: BAILEE Furosemide (Furosemide 20 Mg/2 Ml Vial) 40 mg IVPUSH BID@0900,1800 [facility]; Protocol Last Admin: 05/11/24 08:17 Dose: 40 mg Documented By: BAILEE Glucose (Glucose Gel 15 Gm Gel..Gram.) 15 gm PO Q15M PRN; Protocol PRN Reason: per Hypoglycemia Standing Ord. Heparin Sodium (Porcine) (Heparin Sodium,Porcine 5,000 Unit/Ml Vial) 5,000 unit SUBCUT Q8H [facility] Last Admin: 05/11/24 15:03 Dose: 5,000 unit Documented By: BAILEE Piperacillin Sod/Tazobactam (Sod 4.5 gm/ Sodium Chloride) 100 mls @ 200 mls/hr IV Q12H [facility] Last Infusion: 05/11/24 13:33 Dose: Infused Documented By: BAILEE Norepinephrine Bitartrate (Levophed) 8 mg in 250 mls @ 0 mls/hr IVCONT .Q0M [facility]; Protocol Last Admin: 05/11/24 13:00 Dose: 0.17 mcg/kg/min, 25.09 mls/hr Documented By: BAILEE Cefepime HCl (Maxipime) 2 gm in 50 mls @ 100 mls/hr IV Q24H [facility] Last Infusion: 05/11/24 12:59 Dose: Infused Documented By: BAILEE Propofol (Diprivan) 1,000 mg in 100 mls @ 0 mls/hr IVCONT .Q0M [facility]; Protocol Last Titration: 05/11/24 13:44 Dose: 40 mcg/kg/min, 16.2 mls/hr Documented By: BAILEE Nutrition (Parenteral) (Parenteral Nutrition) 2,040 mls @ 85 mls/hr IV .Q24H [facility]; Protocol Stop: 05/11/24 20:59 Last Admin: 05/10/24 20:08 Dose: 85 mls/hr Documented By: AMERICO Vancomycin HCl 750 mg/ Sodium (Chloride) 265 mls @ 265 mls/hr IV ONCE ONE Stop: 05/10/24 13:44 Fentanyl (Sublimaze/Ns) 1,000 mcg in 100 mls @ 0 mls/hr IVCONT .Q0M [facility]; Protocol Last Admin: 05/11/24 14:58 Dose: 50 mcg/hr, 5 mls/hr Documented By: BAILEE Potassium Phosphate (Kphos) 15 mmol in 250 mls @ 62.5 mls/hr IV Q4H [facility] Stop: 05/11/24 15:59 Last Admin: 05/11/24 12:29 Dose: 62.5 mls/hr Documented By: BAILEE Nutrition (Parenteral) (Parenteral Nutrition) 2,040 mls @ 85 mls/hr IV .Q24H [facility]; Protocol Stop: 05/12/24 20:59 Insulin Human Lispro (Insulin Lispro 100 Unit/Ml 3 Ml Vial) 0 unit SUBCUT Q6H [facility]; Protocol Last Admin: 05/11/24 12:28 Dose: 10 unit Documented By: BAILEE Naloxone HCl (Naloxone Hcl 0.4 Mg/Ml Vial) 0.2 mg IVPUSH Q2M PRN PRN Reason: Excessive sedation or RR < 8 Ondansetron HCl (Ondansetron Hcl 4 Mg/2 Ml Vial) 4 mg IVPUSH Q8H PRN PRN Reason: Nausea and Vomiting Last Admin: 04/29/24 20:36 Dose: 4 mg Documented By: MONA Pharmacy Consult (Consult Rx Parenteral Nutrition Ordering) 1 each MISCELLANE DAILY PRN PRN Reason: Consult order Pharmacy Consult (Consult Rx Vancomycin Dosing) 1 each MISCELLANE DAILY PRN PRN Reason: Consult order Prednisolone Acetate (Prednisolone Acetate 1 % Oph Susp 5 Ml Drpbtl) 1 drop EYE-LEFT DAILY [facility] Last Admin: 05/11/24 08:14 Dose: 1 drop Documented By: BAILEE Sodium Chloride (0.9 % Sodium Chloride Flush 3 Ml Syringe) 3 ml IVFLUSH QSHIFT [facility] Last Admin: 05/11/24 15:03 Dose: 3 ml Documented By: BAILEE Labs 05/11/24 05:31 05/11/24 05:31 Labs: Laboratory Results - last 24 hr 05/10/24 05/10/24 05/10/24 17:20 18:19 23:53 MCV MCH MCHC RDW Plt Count MPV Immature Gran % (Auto) Neut % (Auto) Lymph % (Auto) [place] % (Auto) Eos % (Auto) Baso % (Auto) Lymph # (Auto) [place] # (Auto) Eos # (Auto) Baso # (Auto) Abs Immat Gran (auto) Absolute Neuts (auto) Absolute Nucleated RBC Nucleated RBC % (auto) Neutrophils % (Manual) Band Neutrophils % Lymphocytes % (Manual) Monocytes % (Manual) Eosinophils % (Manual) Basophils % (Manual) Metamyelocytes % Myelocytes % Abs Neuts (Manual) Lymphocytes # (Manual) Monocytes # (Manual) Eosinophils # (Manual) Basophils # (Manual) Metamyelocytes # Myelocytes # Platelet Estimate Plt Morphology Comment RBC Morphology Polychromasia Hypochromasia Basophilic Stippling Microcytosis Spherocytes Tear Drop Cells Ovalocytes O2 Saturation ABG pH at Pt Temp ABG pCO2 at Pt Temp ABG pO2 at Pt Temp ABG HCO3 ABG Base Excess (Actual) Anion Gap Estim Creat Clear Calc Estimated GFR POC Glucose 246 H 278 H Random Glucose Calcium Phosphorus Magnesium Albumin Random Vancomycin 23.4 H 05/11/24 05/11/24 05/11/24 05:31 11:59 12:20 MCV 91.6 MCH 27.8 MCHC 30.4 L RDW 21.2 H Plt Count 164 MPV 10.3 Immature Gran % (Auto) Cancelled Neut % (Auto) Cancelled Lymph % (Auto) Cancelled [place] % (Auto) Cancelled Eos % (Auto) Cancelled Baso % (Auto) Cancelled Lymph # (Auto) Cancelled [place] # (Auto) Cancelled Eos # (Auto) Cancelled Baso # (Auto) Cancelled Abs Immat Gran (auto) Cancelled Absolute Neuts (auto) Cancelled Absolute Nucleated RBC 0.060 H Nucleated RBC % (auto) 0.5 H Neutrophils % (Manual) 75 H Band Neutrophils % 5 Lymphocytes % (Manual) 3 L Monocytes % (Manual) 7 Eosinophils % (Manual) 4 Basophils % (Manual) 2 Metamyelocytes % 3 Myelocytes % 1 Abs Neuts (Manual) 10.4 H Lymphocytes # (Manual) 0.4 L Monocytes # (Manual) 0.9 Eosinophils # (Manual) 0.5 H Basophils # (Manual) 0.3 H Metamyelocytes # 0.4 Myelocytes # 0.1 Platelet Estimate NORMAL Plt Morphology Comment NORMAL RBC Morphology NOTED Polychromasia 1+ (0-2) Hypochromasia 1+ (5-14) Basophilic Stippling 1+ (0-2) Microcytosis 1+ (5-14) Spherocytes 1+ (0-2) Tear Drop Cells 2+ (3-5) Ovalocytes 1+ (5-14) O2 Saturation 96.0 ABG pH at Pt Temp 7.34 L ABG pCO2 at Pt Temp 47 H ABG pO2 at Pt Temp 79 L ABG HCO3 26 ABG Base Excess (Actual) 0.4 Anion Gap 13 Estim Creat Clear Calc 23.5 Estimated GFR 26 POC Glucose 255 H Random Glucose 293 H Calcium 9.5 Phosphorus 1.9 L Magnesium 2.1 Albumin 2.9 L Random Vancomycin 19.2 Procedures Date of Service Date of Service: 05/11/24 Arterial Line Size (Gauge): 20 Progress Note: A&P Assessment and plan (1) Gastric adenocarcinoma: Status: Acute Assessment and Plan: With diffuse metastasis to the bone Tracheostomy and jejunostomy tube will be palliative He does have advanced disease I attempted to call his brother Deion multiple times - not picking up We will re-attempt tomorrow again Continue ICU care for now Long-term prognosis poor Review of his CT scan shows intrathoracic stomach - peg tube not an option for decompression Time Spent With Patient Time: Total time managing care of this patient today ____ minutes. Quality Stroke Does the patient have a stroke diagnosis?: No VTE Prior VTE?: No VTE Risk Level:: Medical - moderate - high VTE Device Contraindication: N/A - Device Ordered VTE Drug Contraindication: N/A - Med Ordered
[2024-05-11 17:33] LABS: Glucose, Whole Blood 216 mg/dL (60-115)
[2024-05-11] MEDS: propofoL 1,000 MG/100 ML VIAL 16.2 MG IVCONT ×2 (18:21→22:26)
--- NOTE | 2024-05-11 19:16 | PC.NURSE ---
patient sedated at shift start, sedation vacation attempted, restless at propofol 10mcg/kg/hr, tremors stared and sedation restarted and increased to 40mcg/kg/hr to reach RASS of -2 to -3, fentanyl at continous rate this shift. See MAR for full details. PPN infusing as ordered, POC covered with Lispro as ordered. Lasix increased to 40mg BID, with good effect noted. HCP at bedside this afternoon.
[2024-05-11] MEDS: Parenteral Nutrition 2,040 ML 85 ML IV (20:42)
[2024-05-11 23:40] LABS: Glucose, Whole Blood 195 mg/dL (60-115)
[2024-05-12] VITALS (46 sets, daily range): BP systolic 86–142; BP diastolic 46–64; PULSE 89–107; RESP 14–26; TEMP 34.5–37; O2SAT 2–97; BMI 27.3
[2024-05-12] MEDS: Piperacillin Sodium/Tazobactam 4.5 GM in 0.9 % Sodium Chloride 100 ML IV ×2 (02:34→14:14)
[2024-05-12] MEDS: propofoL 1,000 MG/100 ML VIAL 16.2 MG IVCONT ×4 (04:22→20:38)
[2024-05-12] MEDS: fentaNYL citrate/NS 1,000 MCG/100 ML PLAST..BAG 5 MCG IVCONT ×2 (04:24→20:35)
[2024-05-12 05:27] LABS: Glucose, Whole Blood 195 mg/dL (60-115)
[2024-05-12] MEDS: Insulin Lispro 100 UNIT/ML 3 ML VIAL SUBCUT ×3 (05:54→18:59)
[2024-05-12 06:02] LABS: ABG Base Excess 0.2 mmol/L; ABG HCO3 26 mmol/L (22-26); ABG pCO2 47 mmHg (32-45); ABG pH 7.34 (7.35-7.45); ABG pO2 78 mmHg (83-108)
[2024-05-12 06:03] LABS: ABG Refer to POC result
[2024-05-12 06:03] LABS: Hematocrit 27.1 % (42.0-52.0); Hemoglobin 8.2 g/dl (14.0-18.0); Mean Corpuscular HGB Conc 30.3 g/dl (31.0-36.0); Mean Corpuscular Hemoglobin 27.7 pg (27.0-33.0); Mean Corpuscular Volume 91.6 fL (80.0-98.0); Mean Platelet Volume 10.3 fL (9.4-12.4); NRBC Pct Auto 0.5 /100WBC (0.0-0.2); Platelet Count 165 X10*3/uL (160-400); Red Blood Count 2.96 X10*6/uL (4.60-5.80); Red Cell Distribution Width 21.7 % (11.0-16.0); White Blood Count 13.1 X10*3/uL (4.8-10.8)
[2024-05-12 06:26] LABS: Albumin Level 2.9 g/dL (3.5-5.0); Anion Gap 14 (12-20); Blood Urea Nitrogen 87 mg/dL (9-16); Calcium 9.4 mg/dL (8.4-10.2); Carbon Dioxide 24 mmol/L (22-29); Chloride 112 mmol/L (96-108); Creatinine Clr Calc Pharmacy 29.2; Estimated Glomerular Filt Rate 30; Glucose Random 241 mg/dL (60-115); Phosphorus 3.2 mg/dL (2.7-4.5); Sodium 146 mmol/L (135-145)
[2024-05-12 06:39] LABS: Band Neutrophils Percent 5 % (3-5); Basophils Abs Manual 0.3 X10*3/uL (0.0-0.2); Basophils Percent Manual 2 % (0-2); Eosinophils Absolute Manual 0.9 X10*3/uL (0.0-0.4); Eosinophils Percent Manual 7 % (0-4); Lymphocytes Absolute Manual 0.4 X10*3/uL (1.2-4.9); Lymphocytes Percent Manual 3 % (20-40); Metamyelocytes Absolute 0.5 X10*3/uL; Metamyelocytes Percent 4 %; Monocytes Absolute Manual 0.4 X10*3/uL (0.1-1.2); Monocytes Percent Manual 3 % (2-11); Neutrophils Absolute Manual 10.6 X10*3/uL (2.0-8.3); Neutrophils Percent Manual 76 % (45-73)
[2024-05-12 06:40] LABS: Acanthocytes 1+ (0-2) /OIF; Microcytosis 1+ (5-14) /OIF; Ovalocytes 1+ (5-14) /OIF; Platelet Estimate NORMAL (NORMAL); Platelet Morphology Comment NOTED; RBC Morphology NOTED
[2024-05-12 06:41] LABS: Basophilic Stippling 1+ (0-2) /OIF; Hypochromasia 1+ (5-14) /OIF; Polychromasia 2+ (3-5) /OIF; Schistocytes 1+ (0-2) /OIF; Spherocytes 1+ (0-2) /OIF; Tear Drop Cells 3+ (>5) /OIF
[2024-05-12] MEDS: Albuterol/Iprat 2.5/0.5MG 3 ML AMPUL.NEB INHALE ×3 (07:47→21:43)
[2024-05-12] MEDS: Heparin Sodium,Porcine 5,000 UNIT/ML VIAL 5000 UNIT SUBCUT ×3 (07:49→23:15)
[2024-05-12] MEDS: Norepinephrine Bitartrate/D5W 8 MG/250 ML PLAST..BAG 22.13 MG IVCONT ×2 (07:52→19:17)
[2024-05-12] MEDS: Furosemide 20 MG/2 ML VIAL 40 MG IVPUSH ×2 (08:53→18:58)
[2024-05-12] MEDS: Chlorhexidine Gluc Oral Rinse 15 ML MOUTHWASH BUCCAL ×2 (08:53→20:34)
[2024-05-12] MEDS: prednisoLONE Acetate 1 % Oph Susp 5 ML DRPBTL 1 DROP EYE-LEFT (08:53)
[2024-05-12] MEDS: Famotidine/PF 20 MG/2 ML VIAL IVPUSH (08:53)
--- NOTE | 2024-05-12 09:02 | PM.CCPN ---
Subjective Subjective Date of Service: 05/12/24 Interval History: no significant overnight events Critical Care Time (minutes): 60 Physical Exam Vital Signs: Vital Signs: Last Vital Signs Temp 97.7 F 05/12/24 08:00 Pulse 98 05/12/24 08:00 Resp 22 H 05/12/24 08:00 BP 123/59 L 05/12/24 08:53 Pulse Ox 97 05/12/24 08:00 O2 Del Method Mechanical Ventil ation 05/12/24 08:00 O2 Flow Rate 1 05/10/24 06:00 FiO2 30 05/12/24 08:00 Oxygen Flow Rate 30 05/11/24 08:00 BMI result Body Mass Index 27.3 Const: Other: intubated, sedated; appreciable spontaneous movements; no appreciable purposeful movements HEENT: Head: Yes normal to inspection, Yes normocephalic and Yes atraumatic Eyes: General: appearance normal, both eyes and all related structures Neck: Neck: Yes normal visual inspection, Yes full ROM, Yes no meningeal signs, Yes trachea midline and Yes supple Chest: Chest palpation & inspection: normal inspection of the chest Resp: Other: no appreciable overt rales, rhonchi, wheezing Effort & Inspection: normal respiratory effort Cardio: Rate: regular rate Rhythm: regular rhythm GI: Inspection: Yes normal to inspection, No Abdominal wall edema and No distended Palpation (GI): Soft to palpation, not firm, nontender, no guarding and not rigid Skin: General skin exam: no rashes or lesions noted Neuro: General: tone normal and no meningeal signs Extrem: Other: appreciable 1+ pitting edema to bilateral shins General: Yes normal to inspection, Yes full ROM and Yes capillary refill normal Psych: Other: unable to assess Objective Data Labs 05/12/24 05:25 05/12/24 05:25 Labs: Laboratory Results - last 24 hr 05/11/24 05/11/24 05/11/24 11:59 12:20 17:30 WBC RBC Hgb Hct MCV MCH MCHC RDW Plt Count MPV Immature Gran % (Auto) Neut % (Auto) Lymph % (Auto) [place] % (Auto) Eos % (Auto) Baso % (Auto) Lymph # (Auto) [place] # (Auto) Eos # (Auto) Baso # (Auto) Abs Immat Gran (auto) Absolute Neuts (auto) Absolute Nucleated RBC Nucleated RBC % (auto) Neutrophils % (Manual) Band Neutrophils % Lymphocytes % (Manual) Monocytes % (Manual) Eosinophils % (Manual) Basophils % (Manual) Metamyelocytes % Abs Neuts (Manual) Lymphocytes # (Manual) Monocytes # (Manual) Eosinophils # (Manual) Basophils # (Manual) Metamyelocytes # Platelet Estimate Plt Morphology Comment RBC Morphology Polychromasia Hypochromasia Basophilic Stippling Microcytosis Spherocytes Tear Drop Cells Ovalocytes Acanthocytes (Spur) Schistocytes O2 Saturation ABG pH at Pt Temp ABG pCO2 at Pt Temp ABG pO2 at Pt Temp ABG HCO3 ABG Base Excess (Actual) Sodium Potassium Chloride Carbon Dioxide Anion Gap BUN Creatinine Estim Creat Clear Calc Estimated GFR POC Glucose 255 H 216 H Random Glucose Calcium Phosphorus Magnesium Albumin Random Vancomycin 19.2 05/11/24 05/12/24 05/12/24 23:36 05:23 05:25 WBC 13.1 H RBC 2.96 L Hgb 8.2 L Hct 27.1 L MCV 91.6 MCH 27.7 MCHC 30.3 L RDW 21.7 H Plt Count 165 MPV 10.3 Immature Gran % (Auto) Cancelled Neut % (Auto) Cancelled Lymph % (Auto) Cancelled [place] % (Auto) Cancelled Eos % (Auto) Cancelled Baso % (Auto) Cancelled Lymph # (Auto) Cancelled [place] # (Auto) Cancelled Eos # (Auto) Cancelled Baso # (Auto) Cancelled Abs Immat Gran (auto) Cancelled Absolute Neuts (auto) Cancelled Absolute Nucleated RBC 0.070 H Nucleated RBC % (auto) 0.5 H Neutrophils % (Manual) 76 H Band Neutrophils % 5 Lymphocytes % (Manual) 3 L Monocytes % (Manual) 3 Eosinophils % (Manual) 7 H Basophils % (Manual) 2 Metamyelocytes % 4 Abs Neuts (Manual) 10.6 H Lymphocytes # (Manual) 0.4 L Monocytes # (Manual) 0.4 Eosinophils # (Manual) 0.9 H Basophils # (Manual) 0.3 H Metamyelocytes # 0.5 Platelet Estimate NORMAL Plt Morphology Comment NOTED RBC Morphology NOTED Polychromasia 2+ (3-5) Hypochromasia 1+ (5-14) Basophilic Stippling 1+ (0-2) Microcytosis 1+ (5-14) Spherocytes 1+ (0-2) Tear Drop Cells 3+ (>5) Ovalocytes 1+ (5-14) Acanthocytes (Spur) 1+ (0-2) Schistocytes 1+ (0-2) O2 Saturation ABG pH at Pt Temp ABG pCO2 at Pt Temp ABG pO2 at Pt Temp ABG HCO3 ABG Base Excess (Actual) Sodium 146 H Potassium 4.0 Chloride 112 H Carbon Dioxide 24 Anion Gap 14 BUN 87 H Creatinine 2.15 H Estim Creat Clear Calc 29.2 Estimated GFR 30 POC Glucose 195 H 195 H Random Glucose 241 H Calcium 9.4 Phosphorus 3.2 Magnesium 2.0 Albumin 2.9 L Random Vancomycin 05/12/24 05/12/24 05:57 08:13 WBC RBC Hgb Hct MCV MCH MCHC RDW Plt Count MPV Immature Gran % (Auto) Neut % (Auto) Lymph % (Auto) [place] % (Auto) Eos % (Auto) Baso % (Auto) Lymph # (Auto) [place] # (Auto) Eos # (Auto) Baso # (Auto) Abs Immat Gran (auto) Absolute Neuts (auto) Absolute Nucleated RBC Nucleated RBC % (auto) Neutrophils % (Manual) Band Neutrophils % Lymphocytes % (Manual) Monocytes % (Manual) Eosinophils % (Manual) Basophils % (Manual) Metamyelocytes % Abs Neuts (Manual) Lymphocytes # (Manual) Monocytes # (Manual) Eosinophils # (Manual) Basophils # (Manual) Metamyelocytes # Platelet Estimate Plt Morphology Comment RBC Morphology Polychromasia Hypochromasia Basophilic Stippling Microcytosis Spherocytes Tear Drop Cells Ovalocytes Acanthocytes (Spur) Schistocytes O2 Saturation 95.0 ABG pH at Pt Temp 7.34 L ABG pCO2 at Pt Temp 47 H ABG pO2 at Pt Temp 78 L ABG HCO3 26 ABG Base Excess (Actual) 0.2 Sodium Potassium Chloride Carbon Dioxide Anion Gap BUN Creatinine Estim Creat Clear Calc Estimated GFR POC Glucose Random Glucose Calcium Phosphorus Magnesium Albumin Random Vancomycin 14.0 L Microbiology Microbiology Results: Microbiology 05/02/24 07:09 Blood - Venous Blood Culture - Final No growth after 5 days. 05/02/24 07:09 Blood - Venous Blood Culture - Final No growth after 5 days. Progress Note: A&P Assessment and plan (1) Respiratory failure with hypoxia and hypercapnia: Status: Acute (2) Aspiration pneumonia: Status: Acute (3) Shock: Status: Acute (4) Gastric cancer: Status: Acute Plan Patient is a 74 Y M w/ schizoaffective disorder, hypertension, gastric cancer c/b metastasis on chemotherapy initially presenting on 04/25 w/ abdominal pain; hospital course c/b aspiration, acute hypoxic respiratory failure, intubated on 05/02, extubated 05/07, re-intubated 05/10, and shock c/b multi-system organ failure including hepatic and renal failure N: encephalopathy, unclear baseline when not intubated; now intubated, sedated w/ propofol, fentanyl gtts, wean as tolerated CV: shock, likely septic; norepinephrine gtt, wean as tolerated R: acute hypoxic respiratory failure d/t recurrent aspiration, intubated 05/02, extubated 05/07, re-intubated 05/10 GI: gastric cancer c/b gastric outlet obstruction, metastasis on chemotherapy; hiatal hernia c/b dilated esophagus; PPN : acute renal insufficiency, stable; to closely monitor renal indices, electrolytes H: no acute issues ID: c/f septic shock, on vancomycin, cefepime E: hyperglycemia; insulin regimen P: no acute issues; schizoaffective disorder S: ongoing goals of care discussions w/ brother/healthcare proxy; depending on prognosis w/ treatment options, may change philosophy of care from full aggressive medical treatment Quality Stroke Does the patient have a stroke diagnosis?: No VTE Prior VTE?: No VTE Risk Level:: Medical - moderate - high VTE Device Contraindication: N/A - Device Ordered VTE Drug Contraindication: N/A - Med Ordered
[2024-05-12] MEDS: 0.9 % Sodium Chloride Flush 3 ML SYRINGE IVFLUSH ×3 (09:06→20:50)
[2024-05-12] MEDS: vancomycin HCL 500 MG in 0.9 % Sodium Chloride 100 ML 110 MG IV (09:35)
[2024-05-12] MEDS: Albumin Human 25 % 50 ML 100 ML IV (09:35)
--- NOTE | 2024-05-12 10:15 | MHC.CLN ---
F/U PATIENT INTUBATED AND SEDATED. CONTINUES WITH PPN DUE TO GASTRIC CANCER. REVIEWED LABS. COMMUNICATED WITH PHARMACY.. RECOMMEND PPN AT 85 ML/HR ADD 30 G LIPIDS TO PROVIDE 1340 KCALS, 204 G DEXTROSE, 87 G PROTEIN (1.4 G/KG IBW). REPLETE LYTES NEEDED. CHECK TRIGLYCERIDES. PPN WITH LIPIDS, PLUS SEDATION PROVIDES 1768 KCALS (28.5 KCALS/KG IBW). CONTINUE TO MONITOR LABS AND PPN TOLERANCE.
[2024-05-12 11:22] LABS: Glucose, Whole Blood 249 mg/dL (60-115)
[2024-05-12] MEDS: cefEPime HCl/D5W 2 GM/50 ML PIGGYBACK IV (12:33)
--- NOTE | 2024-05-12 13:48 | MHC.CM.PN ---
Pt remains vented in ICU: Pt's son/HCP does not wish to make changes to pt's code status or care plan at this time. Pt is a LTC resident of [facility]. Clinical updates remitted should pt be able to return. CM to follow
--- NOTE | 2024-05-12 13:57 | MHC.CM.PN ---
Pt continues on ventilatory support in ICU: surgeon consult for palliative feeding tube: not a candidate at this time. Pt from a [facility] but had been his own decision maker prior to admission. CM to follow for finalization of d/c needs.
[2024-05-12 18:48] LABS: Glucose, Whole Blood 202 mg/dL (60-115)
--- NOTE | 2024-05-12 19:13 | PC.NURSE ---
p: alteration in tissue perfusion i: per care plan e: patient remained on levophed to maintain map > 65. titrated as needed. p: alteration in respiratory i: per care plan e: switched to PSV 8/30% on ventilator today. tolerating vent settings. maintaining O2 sat. p: alteration in integumentary i: per care plan e: turned and repositioned Q2 and as needed. pressure offloaded from bony prominences. foam dressings used as needed.
[2024-05-12] MEDS: Parenteral Nutrition 2,040 ML 85 ML IV (20:46)
[2024-05-13] VITALS (22 sets, daily range): BP systolic 92–132; BP diastolic 47–68; PULSE 99–121; RESP 20–32; TEMP 35–37.4; O2SAT 90–100; BMI 27.0
[2024-05-13 00:29] LABS: Glucose, Whole Blood 197 mg/dL (60-115)
[2024-05-13] MEDS: Insulin Lispro 100 UNIT/ML 3 ML VIAL SUBCUT ×2 (00:29→06:41)
[2024-05-13] MEDS: Piperacillin Sodium/Tazobactam 4.5 GM in 0.9 % Sodium Chloride 100 ML IV (01:20)
[2024-05-13] MEDS: propofoL 1,000 MG/100 ML VIAL 16.2 MG IVCONT (02:32)
[2024-05-13] MEDS: Norepinephrine Bitartrate/D5W 8 MG/250 ML PLAST..BAG 22.13 MG IVCONT (04:27)
[2024-05-13 05:27] LABS: ABG Base Excess 0.1 mmol/L; ABG HCO3 26 mmol/L (22-26); ABG pCO2 47 mmHg (32-45); ABG pH 7.34 (7.35-7.45); ABG pO2 77 mmHg (83-108)
[2024-05-13 05:39] LABS: ABG Refer to POC result
[2024-05-13 05:40] LABS: MANUAL DIFF FLAG NO
[2024-05-13 05:44] LABS: Basophils Absolute Auto 0.1 X10*3/uL (0.0-0.2); Basophils Percent Auto 0.6 % (0-2); Eosinophils Absolute Auto 0.6 X10*3/uL (0.0-0.4); Eosinophils Percent Auto 3.8 % (0-4); Hematocrit 27.5 % (42.0-52.0); Hemoglobin 8.2 g/dl (14.0-18.0); Imm Gran Abs Auto 0.71 X10*3/uL (0.00-0.03); Imm Gran Pct Auto 4.6 % (0.0-0.4); Lymphocytes Absolute Auto 0.4 X10*3/uL (1.2-4.9); Lymphocytes Percent Auto 2.6 % (20-40); Mean Corpuscular HGB Conc 29.8 g/dl (31.0-36.0); Mean Corpuscular Hemoglobin 27.7 pg (27.0-33.0); Mean Corpuscular Volume 92.9 fL (80.0-98.0); Mean Platelet Volume 10.2 fL (9.4-12.4); Monocytes Absolute Auto 1.2 X10*3/uL (0.1-1.2); Monocytes Percent Auto 7.8 % (2-11); NRBC Pct Auto 0.3 /100WBC (0.0-0.2); Neutrophils Absolute Auto 12.3 x10*3/uL (2.0-8.3); Neutrophils Percent Auto 80.6 % (45-73); Platelet Count 147 X10*3/uL (160-400); Red Blood Count 2.96 X10*6/uL (4.60-5.80); Red Cell Distribution Width 21.8 % (11.0-16.0); White Blood Count 15.3 X10*3/uL (4.8-10.8)
[2024-05-13 05:59] LABS: Anion Gap 17 (12-20); Blood Urea Nitrogen 88 mg/dL (9-16); Calcium 9.5 mg/dL (8.4-10.2); Carbon Dioxide 22 mmol/L (22-29); Chloride 109 mmol/L (96-108); Creatinine Clr Calc Pharmacy 28.7; Estimated Glomerular Filt Rate 33; Glucose Random 246 mg/dL (60-115); Magnesium 2.1 mg/dL (1.6-2.6); Phosphorus 3.1 mg/dL (2.7-4.5); Potassium 4.1 mmol/L (3.3-5.1); Sodium 144 mmol/L (135-145); Triglycerides 110 mg/dL (<150)
[2024-05-13 06:44] LABS: Glucose, Whole Blood 266 mg/dL (60-115)
[2024-05-13] MEDS: Furosemide 20 MG/2 ML VIAL 40 MG IVPUSH (08:27)
[2024-05-13] MEDS: prednisoLONE Acetate 1 % Oph Susp 5 ML DRPBTL 1 DROP EYE-LEFT (08:27)
[2024-05-13] MEDS: 0.9 % Sodium Chloride Flush 3 ML SYRINGE IVFLUSH ×2 (08:27→14:47)
[2024-05-13] MEDS: Chlorhexidine Gluc Oral Rinse 15 ML MOUTHWASH BUCCAL (08:27)
[2024-05-13] MEDS: Famotidine/PF 20 MG/2 ML VIAL IVPUSH (08:27)
[2024-05-13] MEDS: Heparin Sodium,Porcine 5,000 UNIT/ML VIAL 5000 UNIT SUBCUT (08:27)
--- NOTE | 2024-05-13 08:36 | PM.CCPN ---
Subjective Subjective Date of Service: 05/13/24 Interval History: no significant overnight events Critical Care Time (minutes): 60 Physical Exam Vital Signs: Vital Signs: Last Vital Signs Temp 98.4 F 05/13/24 08:00 Pulse 106 H 05/13/24 08:00 Resp 23 H 05/13/24 08:00 BP 127/66 05/13/24 08:00 Pulse Ox 92 05/13/24 08:00 O2 Del Method Mechanical Ventil ation 05/13/24 08:00 O2 Flow Rate 1 05/10/24 06:00 FiO2 30 05/13/24 08:15 Oxygen Flow Rate 30 05/12/24 08:00 BMI result Body Mass Index 27.0 Const: Other: intubated, sedated; no appreciable purposeful movements General: no acute distress and well developed HEENT: Head: Yes normal to inspection, Yes normocephalic and Yes atraumatic Eyes: General: appearance normal, both eyes and all related structures Neck: Neck: Yes normal visual inspection, Yes full ROM, Yes no meningeal signs, Yes trachea midline and Yes supple Chest: Chest palpation & inspection: normal inspection of the chest Resp: Other: no appreciable overt rales, rhonchi, wheezing Effort & Inspection: normal respiratory effort Cardio: Rate: tachycardic Rhythm: regular rhythm GI: Inspection: Yes normal to inspection, No Abdominal wall edema and No distended Palpation (GI): Soft to palpation, not firm, nontender, no guarding and not rigid Skin: General skin exam: no rashes or lesions noted Neuro: General: tone normal, moves all extremities and no meningeal signs Extrem: Other: appreciable trace pitting edema to bilateral shins General: Yes normal to inspection, Yes full ROM and Yes capillary refill normal Psych: Other: unable to assess Objective Data Labs 05/13/24 05:31 05/13/24 05:31 Labs: Laboratory Results - last 24 hr 05/12/24 05/12/24 05/12/24 08:13 11:16 18:43 WBC RBC Hgb Hct MCV MCH MCHC RDW Plt Count MPV Immature Gran % (Auto) Neut % (Auto) Lymph % (Auto) Greer % (Auto) Eos % (Auto) Baso % (Auto) Lymph # (Auto) Greer # (Auto) Eos # (Auto) Baso # (Auto) Abs Immat Gran (auto) Absolute Neuts (auto) Absolute Nucleated RBC Nucleated RBC % (auto) O2 Saturation ABG pH at Pt Temp ABG pCO2 at Pt Temp ABG pO2 at Pt Temp ABG HCO3 ABG Base Excess (Actual) Sodium Potassium Chloride Carbon Dioxide Anion Gap BUN Creatinine Estim Creat Clear Calc Estimated GFR POC Glucose 249 H 202 H Random Glucose Calcium Phosphorus Magnesium Triglycerides Random Vancomycin 14.0 L 05/13/24 05/13/24 05/13/24 00:25 05:22 05:31 WBC 15.3 H RBC 2.96 L Hgb 8.2 L Hct 27.5 L MCV 92.9 MCH 27.7 MCHC 29.8 L RDW 21.8 H Plt Count 147 L MPV 10.2 Immature Gran % (Auto) 4.6 H Neut % (Auto) 80.6 H Lymph % (Auto) 2.6 L Greer % (Auto) 7.8 Eos % (Auto) 3.8 Baso % (Auto) 0.6 Lymph # (Auto) 0.4 L Greer # (Auto) 1.2 Eos # (Auto) 0.6 H Baso # (Auto) 0.1 Abs Immat Gran (auto) 0.71 H Absolute Neuts (auto) 12.3 H Absolute Nucleated RBC 0.040 H Nucleated RBC % (auto) 0.3 H O2 Saturation 94.0 ABG pH at Pt Temp 7.34 L ABG pCO2 at Pt Temp 47 H ABG pO2 at Pt Temp 77 L ABG HCO3 26 ABG Base Excess (Actual) 0.1 Sodium 144 Potassium 4.1 Chloride 109 H Carbon Dioxide 22 Anion Gap 17 BUN 88 H Creatinine 2.02 H Estim Creat Clear Calc 28.7 Estimated GFR 33 POC Glucose 197 H Random Glucose 246 H Calcium 9.5 Phosphorus 3.1 Magnesium 2.1 Triglycerides 110 Random Vancomycin 05/13/24 06:40 WBC RBC Hgb Hct MCV MCH MCHC RDW Plt Count MPV Immature Gran % (Auto) Neut % (Auto) Lymph % (Auto) Greer % (Auto) Eos % (Auto) Baso % (Auto) Lymph # (Auto) Greer # (Auto) Eos # (Auto) Baso # (Auto) Abs Immat Gran (auto) Absolute Neuts (auto) Absolute Nucleated RBC Nucleated RBC % (auto) O2 Saturation ABG pH at Pt Temp ABG pCO2 at Pt Temp ABG pO2 at Pt Temp ABG HCO3 ABG Base Excess (Actual) Sodium Potassium Chloride Carbon Dioxide Anion Gap BUN Creatinine Estim Creat Clear Calc Estimated GFR POC Glucose 266 H Random Glucose Calcium Phosphorus Magnesium Triglycerides Random Vancomycin Microbiology Microbiology Results: Microbiology 05/02/24 07:09 Blood - Venous Blood Culture - Final No growth after 5 days. 05/02/24 07:09 Blood - Venous Blood Culture - Final No growth after 5 days. Progress Note: A&P Assessment and plan (1) Respiratory failure with hypoxia and hypercapnia: Status: Acute (2) Aspiration pneumonia: Status: Acute (3) Gastric outlet obstruction: Status: Acute Plan Patient is a 74 Y M w/ schizoaffective disorder, hypertension, gastric cancer c/b metastasis on chemotherapy initially presenting on 04/25 w/ abdominal pain; hospital course c/b aspiration, acute hypoxic respiratory failure, intubated on 05/02, extubated 05/07, re-intubated 05/10, and shock c/b multi-system organ failure including hepatic and renal failure N: encephalopathy, unclear baseline when not intubated; now intubated, sedated w/ propofol, fentanyl gtts, wean as tolerated CV: shock, likely septic; norepinephrine gtt, wean as tolerated R: acute hypoxic respiratory failure d/t recurrent aspiration, intubated 05/02, extubated 05/07, re-intubated 05/10 GI: gastric cancer c/b gastric outlet obstruction, metastasis on chemotherapy; hiatal hernia c/b dilated esophagus; PPN : acute renal insufficiency, stable; to closely monitor renal indices, electrolytes H: no acute issues; chemical DVT prophylaxis w/ heparin SQ ID: c/f septic shock, on vancomycin, cefepime E: hyperglycemia; insulin regimen P: no acute issues; schizoaffective disorder S: ongoing goals of care discussions w/ brother/healthcare proxy; may change philosophy of care from full aggressive medical treatment Quality Stroke Does the patient have a stroke diagnosis?: No VTE Prior VTE?: No VTE Risk Level:: Medical - moderate - high VTE Device Contraindication: N/A - Device Ordered VTE Drug Contraindication: N/A - Med Ordered
[2024-05-13 08:39] LABS: Vancomycin Random 17.5 mcg/mL (15-20)
--- NOTE | 2024-05-13 08:50 | HE.PHANOTE ---
RE: vanco Dose of 500mg Q24H yields AUC of 473 mg/L, trough of 16.7 mg/L. Do to renal instability getting another level 05/14 @0900
[2024-05-13] MEDS: propofoL 1,000 MG/100 ML VIAL 8.1 MG IVCONT (09:09)
--- NOTE | 2024-05-13 09:44 | MHC.CLN ---
Addendum entered by Aranza Jones, RONALDO 05/13/24 14:05: PATIENT IS NOW COMFORT MEASURES ONLY. Original Note: F/U PATIENT INTUBATED AND SEDATED. CONTINUES WITH PPN DUE TO GASTRIC CANCER. REVIEWED LABS. [id number]. COMMUNICATED WITH PHARMACY.. RECOMMEND CONTINUE 1PPN AT 85 ML/HR ADD 30 G LIPIDS TO PROVIDE 1340 KCALS, 204 G DEXTROSE, 87 G PROTEIN (1.4 G/KG IBW). REPLETE LYTES NEEDED. PPN WITH LIPIDS, PLUS SEDATION PROVIDES 1554 KCALS (25.1 KCALS/KG IBW). CONTINUE TO MONITOR LABS AND PPN TOLERANCE.
--- NOTE | 2024-05-13 11:46 | P.ACPN_ITS ---
Advanced Care Planning Note Advanced Care Planning Note Discussed with: family member(s) Time spent (in minutes): 15 Narrative: I met Mr. Muñiz' brother and [id number] in person this morning; we discussed Mr. Muñiz' overall poor prognosis and limited treatment options; given such, Pool feels that it is appropriate to transition Mr. Guerra philosophy of care to comfort-focused care at this time; we discussed we will extubate Mr. Muñiz whenever they are ready and transition him to comfort- focused care Problems Discussed (1) Respiratory failure with hypoxia and hypercapnia: (2) Aspiration pneumonia: (3) Gastric outlet obstruction:
[2024-05-13 12:16] LABS: Glucose, Whole Blood 167 mg/dL (60-115)
--- NOTE | 2024-05-13 14:39 | MHC.CM.PN ---
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 Family in to visit - pt to receive sacrament of the sick per family request. Family would like [facility] in [place].
[2024-05-13] MEDS: Scopolamine 1.5 MG PATCH.TD.3 TRANSDERMA (14:45)
[2024-05-13] MEDS: fentaNYL citrate/NS 1,000 MCG/100 ML PLAST..BAG 10 MCG IVCONT (14:47)
[2024-05-13] MEDS: Morphine Sulfate 2 MG/ML CARTRIDGE IVPUSH (14:52)
--- NOTE | 2024-05-13 15:27 | PC.NURSE ---
Addendum entered by Preeti Oshea RN 05/13/24 17:07: Pt. asystole at 1632- MD at bedside to pronounce. HCP notified via telephone Original Note: Assumed care at 0700- pt. vented and sedated per MAY. Family meeting held with MD- family decided to pursue REGULATORY ATTORNEY status. PRN meds given per MAY, pt. remains on fentanyl gtt. Pt. terminally extubated at 1457 by Rt with this RN at bedside. REGULATORY ATTORNEY plan of care ongoing.
[2024-05-13] MEDS: LORazepam 2 MG/ML VIAL 1 MG IVPUSH (15:35)
--- NOTE | 2024-05-13 15:52 | PM.DDS ---
Discharge Sum: Prov Provider Primary care physician: Xu Moody MD Pronouncing clinician: Sol Alejo Discharge Sum: Diag PCOD Cause of : Acute respiratory failure Contributing Factors (1) Aspiration pneumonia: (2) Gastric outlet obstruction: Discharge Sum: Summary Date and Time Date of admission: 04/25/24 15:05 Date of : 05/13/24 Time of : 16:32 Summary Details: Mr. 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 Muñiz underwent a upper endoscopy which demonstrated an infiltrating gastric outlet mass complicated by partial obstruction; Mr. Muñiz hospital course was complicated by aspiration, further complicated by acute hypoxic respiratory failure, necessitating intubation on 05/02; on 05/07, Mr. Muñiz was extubated, though suffered recurrent aspiration and was re-intubated 05/10; additionally his ICU course was complicated by shock and multi-system organ failure including hepatic and renal failure; oncology and general surgery were consulted to discuss any potential treatment options, which unfortunately were limited; on 05/13, Mr. Muñiz brother, Pool, felt that his philosophy of care should be transitioned to comfort-focused care; Mr. Muñiz was extubated with family at his bedside; Mr. Muñiz at 16:32 05/13 Additional Data Confirmation of as documented by pronouncing clinician: no pulse, no respirations, no heart sounds and pupils fixed and dilated Family: contacted Attending physician: Sol Alejo MD Was code activated?: No Autopsy requested?: No home office claims examiner notified?: No
== END 2024-05-13 16:32 | disposition expired | DRG 380 ==
LOC: HO.ED 12:53 → HO.EDOVER 15:15 → HO.S3 15:45 → HO.IMC 05-02 06:05 → HO.ICU 05-02 06:36
PROVIDERS: Internal Medicine; Internal Medicine Critical Care Medicine; Internal Medicine Gastroenterology; Nurse Practitioner Family; Physician Assistant; Physician Assistant Medical; Admitting Provider Hospitalist; Emergency Provider Emergency Medicine; PCP Internal Medicine; Visit Provider Internal Medicine Critical Care Medicine
PROC: 0DJ08ZZ Inspection of Upper Intestinal Tract, Via Natural or Artificial Opening Endoscopic (ICD-10-PCS; CPT 43235; principal; 2024-04-28 08:30)
DX: K31.1 Adult hypertrophic pyloric stenosis (principal); A41.9 Sepsis, unspecified organism; J69.0 Pneumonitis due to inhalation of food and vomit; D61.810 Antineoplastic chemotherapy induced pancytopenia; J96.21 Acute and chronic respiratory failure with hypoxia; R65.21 Severe sepsis with septic shock; G93.41 Metabolic encephalopathy; K72.00 Acute and subacute hepatic failure without coma; N17.0 Acute kidney failure with tubular necrosis; J96.22 Acute and chronic respiratory failure with hypercapnia; C16.9 Malignant neoplasm of stomach, unspecified; C79.51 Secondary malignant neoplasm of bone; J98.11 Atelectasis; K22.10 Ulcer of esophagus without bleeding; I51.81 Takotsubo syndrome; I25.10 Atherosclerotic heart disease of native coronary artery without angina pectoris; J45.20 Mild intermittent asthma, uncomplicated; N40.0 Benign prostatic hyperplasia without lower urinary tract symptoms; I10 Essential (primary) hypertension; G89.3 Neoplasm related pain (acute) (chronic); Z51.5 Encounter for palliative care; K44.9 Diaphragmatic hernia without obstruction or gangrene; R73.9 Hyperglycemia, unspecified; E78.5 Hyperlipidemia, unspecified; R57.0 Cardiogenic shock; T45.1X5A Adverse effect of antineoplastic and immunosuppressive drugs, initial encounter; E83.51 Hypocalcemia; F25.9 Schizoaffective disorder, unspecified; E83.42 Hypomagnesemia; E87.6 Hypokalemia; D63.0 Anemia in neoplastic disease; Z79.51 Long term (current) use of inhaled steroids; Z79.899 Other long term (current) drug therapy
CPT/HCPCS: 0241U; 36415; 36600; 71045; 71046; 71250; 71260; 74018; 74177; 76705; 80048; 80053; 80076; 80202; 81003; 82040; 82533; 82803; 82947; 83605; 83735; 83880; 84100; 84443; 84478; 84484; 85007; 85025; 85027; 85610; 85730; 87040; 87633; 87640; 87641; 92526; 93005; 93306; 93308; 94002; 94003; 94640; 94660; 94799; 99285; C1758; J0282; J0283; J0613; J0692; J1171; J1644; J1650; J1940; J2003; J2060; J2270; J2371; J2405; J2470; J2543; J2598; J2704; J2765; J3010; J3370; J3475; J3480; J7120; P9047; Q9967

== ENCOUNTER 2024-04-25 15:05 | Outpatient (BNV) | payer MEDICARE, MEDICAID, SELFPAY | END 2024-04-26 14:50 | PROVIDERS: Admitting Provider Hospitalist; Emergency Provider Emergency Medicine; PCP Internal Medicine; Visit Provider Radiology Diagnostic Radiology | DX: R91.8 Other nonspecific abnormal finding of lung field (principal); J90 Pleural effusion, not elsewhere classified; C79.51 Secondary malignant neoplasm of bone; K57.30 Diverticulosis of large intestine without perforation or abscess without bleeding | CPT/HCPCS: 71260; 74177 ==

== ENCOUNTER 2024-04-25 15:05 | Outpatient (BNV) | payer MEDICARE, MEDICAID, SELFPAY | END 2024-05-03 14:00 | PROVIDERS: Admitting Provider Hospitalist; Emergency Provider Emergency Medicine; PCP Internal Medicine; Visit Provider Internal Medicine Cardiovascular Disease | DX: I42.8 Other cardiomyopathies (principal); R94.31 Abnormal electrocardiogram [ECG] [EKG] | CPT/HCPCS: 93010; 93308; 93321 ==

== ENCOUNTER 2024-04-25 15:05 | Outpatient (BNV) | payer MEDICARE, MEDICAID, SELFPAY | END 2024-04-29 10:50 | PROVIDERS: Admitting Provider Hospitalist; Emergency Provider Emergency Medicine; PCP Internal Medicine; Visit Provider Radiology Diagnostic Radiology | DX: J90 Pleural effusion, not elsewhere classified (principal); C79.51 Secondary malignant neoplasm of bone; J81.1 Chronic pulmonary edema | CPT/HCPCS: 71046 ==

== ENCOUNTER 2024-04-25 15:05 | Outpatient (BNV) | payer MEDICARE, MEDICAID, SELFPAY | END 2024-05-01 14:00 | PROVIDERS: Admitting Provider Hospitalist; Emergency Provider Emergency Medicine; PCP Internal Medicine; Visit Provider Radiology Diagnostic Radiology | DX: C16.9 Malignant neoplasm of stomach, unspecified (principal); C79.51 Secondary malignant neoplasm of bone; J91.0 Malignant pleural effusion; R91.8 Other nonspecific abnormal finding of lung field | CPT/HCPCS: 71250 ==

== ENCOUNTER 2024-04-25 15:05 | Outpatient (BNV) | payer MEDICARE, MEDICAID, SELFPAY | END 2024-05-02 06:41 | PROVIDERS: Admitting Provider Hospitalist; Emergency Provider Emergency Medicine; PCP Internal Medicine; Visit Provider Internal Medicine Cardiovascular Disease | DX: R00.0 Tachycardia, unspecified (principal); I45.6 Pre-excitation syndrome | CPT/HCPCS: 93010 ==

== ENCOUNTER 2024-04-25 15:05 | Outpatient (BNV) | payer MEDICARE, MEDICAID, SELFPAY | END 2024-04-30 08:30 | PROVIDERS: Admitting Provider Hospitalist; Emergency Provider Emergency Medicine; PCP Internal Medicine; Visit Provider Radiology Vascular & Interventional Radiology | DX: J98.11 Atelectasis (principal); R91.8 Other nonspecific abnormal finding of lung field; C79.51 Secondary malignant neoplasm of bone | CPT/HCPCS: 71045 ==

== ENCOUNTER 2024-04-25 15:05 | Outpatient (BNV) | payer MEDICARE, MEDICAID, SELFPAY | END 2024-05-02 05:09 | PROVIDERS: Admitting Provider Hospitalist; Emergency Provider Emergency Medicine; PCP Internal Medicine; Visit Provider Radiology Diagnostic Radiology | DX: J18.9 Pneumonia, unspecified organism (principal); C79.51 Secondary malignant neoplasm of bone; K44.9 Diaphragmatic hernia without obstruction or gangrene; Z97.8 Presence of other specified devices; R18.0 Malignant ascites; K81.0 Acute cholecystitis | CPT/HCPCS: 71045; 74018 ==

== ENCOUNTER 2024-04-25 15:05 | Outpatient (BNV) | payer MEDICARE, MEDICAID, SELFPAY | END 2024-05-10 06:36 | PROVIDERS: Admitting Provider Hospitalist; Emergency Provider Emergency Medicine; PCP Internal Medicine; Visit Provider Radiology Diagnostic Radiology | DX: R91.8 Other nonspecific abnormal finding of lung field (principal); Z97.8 Presence of other specified devices; K44.0 Diaphragmatic hernia with obstruction, without gangrene | CPT/HCPCS: 71045 ==

== ENCOUNTER 2024-04-25 15:05 | Outpatient (BNV) | payer MEDICARE, MEDICAID, SELFPAY | END 2024-04-30 07:00 | PROVIDERS: Admitting Provider Hospitalist; Emergency Provider Emergency Medicine; PCP Internal Medicine; Visit Provider Internal Medicine Cardiovascular Disease | DX: I51.7 Cardiomegaly (principal); I27.20 Pulmonary hypertension, unspecified | CPT/HCPCS: 93306 ==

== ENCOUNTER 2024-04-25 15:05 | Outpatient (BNV) | payer MEDICARE, MEDICAID, SELFPAY | END 2024-05-03 13:24 | PROVIDERS: Admitting Provider Hospitalist; Emergency Provider Emergency Medicine; PCP Internal Medicine; Visit Provider Radiology Diagnostic Radiology | DX: K80.20 Calculus of gallbladder without cholecystitis without obstruction (principal); J90 Pleural effusion, not elsewhere classified | CPT/HCPCS: 76705 ==

== ENCOUNTER → 2024-04-25 15:05 | Outpatient (BNV) | payer MEDICARE, MEDICAID, SELFPAY | PROVIDERS: Admitting Provider Hospitalist; Emergency Provider Emergency Medicine; PCP Internal Medicine; Visit Provider Internal Medicine Cardiovascular Disease | DX: J96.21 Acute and chronic respiratory failure with hypoxia (principal) | CPT/HCPCS: 99222 ==

== ENCOUNTER → 2024-04-25 15:05 | Outpatient (BNV) | payer MEDICARE, MEDICAID, SELFPAY | PROVIDERS: Admitting Provider Hospitalist; Emergency Provider Emergency Medicine; Visit Provider Hospitalist | DX: C16.9 Malignant neoplasm of stomach, unspecified (principal); E83.42 Hypomagnesemia; R11.2 Nausea with vomiting, unspecified | CPT/HCPCS: 99223; 99232; 99233 ==

== ENCOUNTER → 2024-04-25 15:05 | Outpatient (BNV) | payer MEDICARE, MEDICAID, SELFPAY | PROVIDERS: Admitting Provider Hospitalist; Emergency Provider Emergency Medicine; Visit Provider Internal Medicine Gastroenterology | DX: K44.9 Diaphragmatic hernia without obstruction or gangrene (principal) | CPT/HCPCS: 99223 ==

== ENCOUNTER → 2024-04-25 15:05 | Outpatient (BNV) | payer MEDICARE, MEDICAID, SELFPAY | PROVIDERS: Admitting Provider Hospitalist; Emergency Provider Emergency Medicine; PCP Internal Medicine; Visit Provider Internal Medicine Critical Care Medicine | DX: J69.0 Pneumonitis due to inhalation of food and vomit (principal); J96.01 Acute respiratory failure with hypoxia; A41.9 Sepsis, unspecified organism; R65.21 Severe sepsis with septic shock; N17.9 Acute kidney failure, unspecified | CPT/HCPCS: 36620; 99291 ==

== ENCOUNTER → 2024-04-25 15:05 | Outpatient (BNV) | payer MEDICARE, MEDICAID, SELFPAY | PROVIDERS: Admitting Provider Hospitalist; Emergency Provider Emergency Medicine; PCP Internal Medicine; Visit Provider Surgery | DX: K31.89 Other diseases of stomach and duodenum (principal); K31.1 Adult hypertrophic pyloric stenosis; J96.21 Acute and chronic respiratory failure with hypoxia | CPT/HCPCS: 99222 ==